=== PATIENT | female | born 1975 | race Caucasian/White ===

== ENCOUNTER 2023-05-04 01:23 | Emergency (ER) | payer MEDICAID, SELFPAY ==
[2023-05-04 01:33] VITALS: BP 169/98; PULSE 88; RESP 20; TEMP 36.5; O2SAT 98; BMI 32.0
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
--- NOTE | 2023-05-04 01:48 | ED.NURSE ---
in to administer dental block
== END 2023-05-04 02:04 | disposition home or self-care (01) ==
LOC: ED 02:01
PROVIDERS: Emergency Provider Family Medicine; PCP Family Medicine
DX: K04.7 Periapical abscess without sinus (principal)
CPT/HCPCS: 64400; 99283; 99284

== ENCOUNTER 2025-02-07 17:05 | Emergency (ER) | payer OTHER, SELFPAY ==
--- OUTSIDE RECORDS SUMMARY | 2025-02-07 17:07 | XMS_ITS | CCD ---
Author Name Interface, [id number] lity Address [address] [place], [place] [id number] [facility] Address [address] [place] [address] Care Team Providers Care Dental Technician Name Role Phone Deepthi Dodge Unavailable Unavailable Cheryle Ashford Unavailable Unavailable Care Plan Reason for Visit Encounters Functional Status Medications Problems Procedures Social History
--- OUTSIDE RECORDS SUMMARY | 2025-02-07 17:08 | XMS_ITS ---
Author Name Interface, [id number] lity Address [address] [place] [address] [address] [address] [facility] Oncology Address [address] [facility] [address] [place] [address] Care Team Providers Care Psychiatric Therapist Name Role Phone Deepthi Dodge Unavailable Unavailable Allergies and Adverse Reactions Medication/Group Name Reaction Severity Date adhesive 05/06/2023 Citalopram Analogues no mappable FDB reaction 05/06/2023 escitalopram oxalate no mappable FDB reaction 05/06/2023 Plan Date Type Value 05/06/2023 APPOINTMENT RECONSULT 30 MIN 05/06/2023 APPOINTMENT LAB 15 MIN 05/06/2023 LABORDER Reticulocyte cou nt panel 05/06/2023 LABORDER CMP 05/06/2023 LABORDER CBC w/ auto diff 05/06/2023 LABORDER LDH panel 05/09/2024 LABORDER CBC w/ auto diff 05/09/2024 LABORDER CMP 05/09/2024 LABORDER LDH panel Reason for Visit LAB 15 MIN Encounters Date Name 05/06/2023 Acute lymphoid leuke abril, disease (disorder) Diagnostic Results Date Type Test Units Lower Limit Upper Limit Result Flag Comments Status Ordered By Specimen Source Lab Address 05/06 LDH panel LDH U/L 120.0 246.0 191 FINAL Deepthi banerjee Oncology - [place], [address] [facility] [address] [facility] [place] [phone] Phone: () - 05/06 CBC w/ auto diff WBC K/uL 3.0 8.9 8.4 FINAL Deepthi banerjee Oncology - [facility], [address] [place] [address] [address] [facility] [id number] [phone] Phone: () - 05/06 CBC w/ auto diff HGB g/dL 11.3 15.2 13.6 FINAL Deepthi banerjee [facility] - [place], [address] [place] [address] [address] [place] [id number] Phone: () - 05/06 CBC w/ auto diff PLT K/uL 113.0 364.0 266 FINAL eDepthi banerjee Oncology - [place], [address] [place] [address] [address] [place] [id number] 0 Phone: () - 05/06 CBC w/ auto diff Dawna # (ANC) K/uL 1.6 6.6 3.9 FINAL Deepthi banerjee [facility] - [place], [address] [place] [address] [address] [place] [id number] Phone: () - 05/06 CBC w/ auto diff Dawna % % 43.0 74.0 46.7 FINAL Deepthi banerjee [facility] - [place], [address] [place] [address] [address] [place] [id number] 0 Phone: () - 05/06 CBC w/ auto diff IG % % 0.0 0.5 0.5 FINAL Deepthi banerjee [facility] - [place], [address] [place] [address] [address] [place] [id number] 0 Phone: () - 05/06 CBC w/ auto diff IG # K/uL 0.0 0.03 0.04 High FINAL Deepthi banerjee [facility] - [place], [address] [place] [address] [address] [place] [id number] Phone: () - 05/06 CBC w/ auto diff LY % % 14.0 41.0 44.8 High FINAL Deepthi banerjee [facility] - [place], [address] [place] [address] [address] [place] [id number] 0 Phone: () - 05/06 CBC w/ auto diff MO % % 6.0 15.0 6.2 FINAL Deepthi banerjee [facility] - [place], [address] [place] [address] [address] [place] [id number] 0 Phone: () - 05/06 CBC w/ auto diff EO % % 0.0 7.0 1.4 FINAL Deepthi banerjee [facility] - [place], [address] [place] [id number] Phone: () - 05/06 CBC w/ auto diff BA % % 0.0 2.0 0.4 FINAL Deepthi banerjee On[facility] - [place] [facility], [address] [place] [address] [address] [place] [id number] 0 Phone: () - 05/06 CBC w/ auto diff LY # K/uL 0.4 3.6 3.8 High FINAL Deepthi banerjee On[facility] - [place] [facility], [address] [place] [address] [address] [place] [id number] 0 Phone: () - 05/06 CBC w/ auto diff MO # K/uL 0.2 1.3 0.5 FINAL Deepthi banerjee On[facility] - [place] [facility], [address] [place] [address] [address] [place] [id number] 0 Phone: () - 05/06 CBC w/ auto diff EO # K/uL 0.0 0.6 0.1 FINAL Deepthi banerjee On[facility] - [place] [facility], [address] [place] [address] [address] [place] [id number] 0 Phone: () - 05/06 CBC w/ auto diff BA # K/uL 0.0 0.2 0.0 FINAL Deepthi banerjee On[facility] - [place] [facility], [address] [place] [address] [address] [place] [id number] 0 Phone: () - 05/06 CBC w/ auto diff NRBC % #/100W BC 0.0 0.2 0.0 FINAL Deepthi banerjee On[facility] - [place] [facility], [address] [place] [address] [address] [place] [id number] 0 Phone: () - 05/06 CBC w/ auto diff RBC M/uL 3.9 5.1 4.57 FINAL Deepthi banerjee Oncology - [place] [facility], [address] [place] [address] [address] [place] [id number] 0 Phone: () - 05/06 CBC w/ auto diff HCT % 35.0 48.0 40.7 FINAL Deepthi banerjee Oncology - [place] [facility], [address] [place] [address] [address] [facility] [place] [id number] 0 Phone: () - 05/06 CBC w/ auto diff MCV fL 80.0 104.0 89.1 FINAL Deepthi banerjee [facility] - [place], [address] [place] [address] [address] [place] [id number] 0 Phone: () - 05/06 CBC w/ auto diff MCH pg 26.0 35.0 29.8 FINAL Deepthi banerjee Oncology - [place] [facility], [address] [place] [address] [address] [facility] [place] [id number] 0 Phone: () - 05/06 CBC w/ auto diff MCHC g/dL 30.0 35.0 33.4 FINAL Deepthi banerjee On[facility] - [place] [facility], [address] [place] [address] [address] [facility] [place] [id number] 0 Phone: () - 05/06 CBC w/ auto diff MPV fL 9.5 13.4 9.3 Low FINAL Deepthi banerjee Oncology - [place] [facility], [address] [place] [address] [address] [facility] [place] [id number] 0 Phone: () - 05/06 CBC w/ auto diff RDW % 11.4 16.1 13.60 FINAL Deepthi banerjee On[facility] - [place] [facility], [address] [place] [address] [address] [facility] [place] [id number] 0 Phone: () - 05/06 Retic ulocy te count panel Retic ulocy te, absol bc M/uL 0.02 0.08 0.07 FINAL Deepthi banerjee On[facility] - [place] [facility], [address] [place] [address] 200 [place] [id number] 0 Phone: () - 05/06 Retic ulocy te count panel Retic ulocy te count % 0.4 1.6 1.60 FINAL Deepthi banerjee On[facility] - [place] [facility], [address] [place] [address] 200 [place] [id number] 0 Phone: () - 05/06 Retic ulocy te count panel Immat ure retic ulocy te fract ion, % % 0.0 16.5 9.70 FINAL Deepthi banerjee [facility], [address] [place] [id number] 0 Phone: () - 05/06 Retic ulocy te count panel Retic ulocy te cellu lar hemog lobin pg 28.0 37.0 33.0 FINAL Deepthi Clemens lavonne [facility], [address] [place] [id number] 0 Phone: () - 05/06 CMP Album in g/dL 3.2 5.2 4.7 FINAL Deep[place] [address] [facility] [address] [place] [id number] 0 Phone: () - 05/06 CMP Alkal ine phosp hatas e U/L 46.0 116.0 73 FINAL Deepthi Dodge [place] [address] [id number] 0 Phone: () - 05/06 CMP ALT/S GPT U/L 7.0 40.0 19 FINAL Deepthi [place] [address] [phone] 0 Phone: () - 05/06 CMP AST/S GOT U/L 13.0 40.0 21 FINAL Deepthi [place] [address] [phone] Phone: () - 05/06 CMP BUN mg/dL 9.0 23.0 16.0 FINAL Deepthi [place] [address] [id number] 0 Phone: () - 05/06 CMP Calci um mg/dL 8.7 10.4 9.8 FINAL Deepthi [place] [address] [id number] 0 Phone: () - 05/06 CMP Chlor ray mmol/L 96.0 114.0 107 FINAL Deepthi Dodge [place] [address] [phone] 0 Phone: () - 05/06 CMP CO2 mmol/L 20.0 31.0 28 The expected total allowable error for CO2 is 5.6%. We have seen up to 10% differenc e in values if reported at the end of the 96 hour stability window. Please consider the clinical significa nce of a 2.0-2.5 mmol/L lower reported CO2 value if reported at the end of the 96 hour stability window. FINAL Deepthi banerjee [place] [address] [phone] 0 Phone: () - 05/06 CMP Creat inine mg/dL 0.5 1.2 0.80 FINAL Deepthi [place] [address] [phone] 0 Phone: () - 05/06 CMP GFR estim ate ml/min /1.73m ^2 90.1 GFR is calculate d using the CKD-EPI equation. FINAL Deepthi [place] [address] [phone] 0 Phone: () - 05/06 CMP Gluco se mg/dL 73.0 126.0 128 High FINAL Deepthi [place] [address] [phone] 0 Phone: () - 05/06 CMP Potas sium mmol/L 3.5 5.1 3.9 FINAL Deepthi [place] [address] [phone] 0 Phone: () - 05/06 CMP Sodiu m mmol/L 136.0 145.0 142 FINAL Deepthi Eli [place] [address] [phone] 0 Phone: () - 05/06 CMP Bilir ubin, total mg/dL 0.3 1.2 0.2 Low FINAL Deepthi [place] [address] [phone] 0 Phone: () - 05/06 CMP Total prote in g/dL 5.7 8.2 7.1 FINAL Deepthi banerjee Oncology - [place], [address] [facility] [address] [facility] [place] [phone] 0 Phone: () - Medications Date Name Route Dose Frequency Instructions Start Date End Date Status Albuterol HFA Inhaler 90 mcg/actuation PRN active Lisinopril Oral orally 10.0 mg daily active Furosemide Oral daily a ctive 12/21 Hydrocortisone IV intravenously 100.0 mg Re-initiate treatment only upon physician approval. 2019 active 12/21 Methylprednisol one IV intravenously 125.0 mg Re-initiate treatment only upon physician approval. 2019 active 12/21 dexamethasone sodium phosphate intravenously 10.0 mg once 2019 active 12/21 Diphenhydramine IV intravenously 50.0 mg Re-initiate treatment only upon physician approval. 2019 active 12/21 Granisetron IV intravenously 1000. 0 mcg once 2019 active 12/21 2 ML vincristine sulfate 1 MG/ML Injection intravenously 2.0 mg once Interim Maintenance Days 1 of a 28 day cycleVincristine is a vesicant.Max Dose is 2 mg. 2019 active 12/21 dexamethasone sodium phosphate intravenously 10.0 mg once 2019 active 12/21 1 ML epinephrine 1 MG/ML Injection intramuscularly 0.3 mg once Re-initiate treatment only upon physician approval. 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) Active 04/05/2019 Acute thrombosis of subclavian vein (disorder) A ctive Anxiety (finding) Active Cough (finding) Active Upper respiratory infection (disorder) Active Acute lymphoid leukemia, disease (disorder) Acti ve Vital Signs Date Type Value 05/06/2023 Body Temperature 98.50 05/06/2023 Heart Beat 87.00 05/06/2023 Respiratory Rate 16.00 05/06/2023 Oxygen Saturation 98.00 05/06/2023 BSA 1.79 05/06/2023 Pain Scale 6.00 05/06/2023 Weight 172.30 05/06/2023 Height 62.00 05/06/2023 BMI 31.51 05/06/2023 Intravascular Systolic 148 05/06/2023 Intravascular Diastolic 88 Notes Section * Med Onc Follow-up Note Patient Name: XIN TRAN? Date Of : 1975? Today's Provider:?Deepthi Dodge MD Date of Service:?05/06/2023? Attending Physician:?Cheryle Ashford (Medical Oncology), Deepthi Dodge (Medical Oncology) Referring Provider:??Wilfredo Ellis MD (Family Medicine) HEMATOLOGY/ MEDICAL ONCOLOGY FOLLOW UP VISIT Reason for Visit Follow up, history of T-ALL?? Assessment * History of stage IIIB T-cell acute lymphoblastic lymphoma??at age 46 treated with an aspariginase-based induction regimen followed by consolidation therapy as detailed below. She was not able to complete 2 years of maintenance as recommended due to lack of follow up and insurance issues.?? * History of catheter-related DVT. Not on chronic anticoagulation.?? * Lower extremity edema. Previously on furosemide but has not been taking this for a couple of years.?? Plan * Follow up with primary care as scheduled. * Follow up with cardiology next week as scheduled. * From an oncology perspective, her risk of relapse now 4 years out is??not extremely high even though she did not complete maintenance therapy. Continue surveillance with yearly visit and CBC. However, I asked Xin to let us know if she develops fever, night sweats, weight loss, etc. as acute leukemia relapse is not likely to be caught on once yearly labs. Total time spent including face to face time, chart review, documentation and coordination of care - 30 minutes.?? Advanced Care Planning Pain Scale on Today's Visit 6 Pain Plan on Today's Visit Date of Service: 05/06/2023 Pain Scale (0-10): 6 Pain Treatment Plan: Non-opioid analgesics or techniques Comment: Smoking Status Smoking Tobacco : Current every day smoker; Smokeless Tobacco : Never used smokeless tobacco; Vaping : Never vaped Depression Screening Tool Status Was not screened Reason: Patient Refused; Screening Date: 05/06/2023 History of Present Illness DIAGNOSIS: * T-cell acute lymphoblastic lymphoma, diagnosed definitively at ultrasound- guided biopsy of a left neck mass 04/05/2019. Xin is a previously healthy 44 year old woman who was admitted 04/03/2019 from [place] to [facility] with dyspnea and a left neck mass. CT 04/04/2019 showed a giant anterior mediastinal mass, mild left hilar, moderate supraclavicular, and mild inferior posterior trianglecervical adenopathy. There was??also mild left superior periaortic retroperitoneal lymphadenopathy.Large left pleural effusion with prominent atelectasis in the left lower lobe.?? U/S guided bx of the left neck mass showed T-cell acute lymphoblastic lymphoma (ALL).??Pleural fluid was also positivefor ALL. Bone marrow biopsy was negative. Subsequent CT of the abdomen showed??abnormal soft tissuewithin the upper left retroperitoneum. This is contiguous with soft tissue thickening along the crux of the left hemidiaphragm and left pleural soft tissue thickening.?? * Status post induction chemotherapy with complete response noted on imaging. * She is currently receiving consolidation per the above protocol, most recently Block 7 as an in-patient,?? 09/26-05/2019. * She is still too cytopenic for admission to the hospital Consolidation Block 8. I will therefore give her the next two weeks off, and then admit to the hospital 10/24 or for that, which will be her second to last consolidation block.?? * Chronic pain that predated her diagnosis but was probably related to it in some capacity. We were giving her opiates for this. She has been off of narcotics now for a few days and is okay with this. She would like to detox and I am very supportive of this. * History of smoking with COPD seen on recent CT scan. Unfortunately she continues to smoke. * Right upper extremity DVT 06/07/2019, due to her powerport. S/P removal and currently on rivaroxaban, with which she has been intermittently compliant.?? * Left upper extremity occlusive thrombosis in the left basilic and axillary veins, and nonocclusive thrombus in the left subclavian. This was coincident with her not taking her rivaroxaban because "I just got tired of taking it. 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 This was used for PICC during her recent hospitalization. * Recent development of compression fractures of the thoracic and lumbar spine, undoubtedly due to prednisone as part of her regimen. THERAPY TO DATE: * We are using the GRAAL 2003 regimen, inspired by similar pediatric protocols that have resulted in 60-70% chance of cure in adults 45 and younger.?? * ??She was 6878admitted from 04/21/2019-05/09/2019 for??induction chemotherapy??using the GRAAL 2003 regimen, She received Vincristine 2 mg/d IV D1, 8, 15 and 22; Daunorubicin 50 mg/m2/d IV D1, 2, 3 then 30 mg/m2 day 15 and 16; Pegaspargase 2000 mg/m2 IV day 1; Prednisone 60 mg/m2/d oral day 1-14; ??cyclophosphamide 750 mg/m2 D1.??Because she was a good early responder, so she??received??cytoxan 750mg/m2 IV day 15.??CT scan 05/08/2019 showed significant interval improvement with near complete resolution her anterior mediastinal mass,??and complete resolution of her pleural effusion and upper abdominal adenopathy. She was discharged 05/09. * Admitted 05/15/2019- 05/19/2019??for first block (Block #1)consolidation, with cytarabine and dexamethasone given bid days 1 and 2, and asparaginase given day 3. She was discharged 05/19/2019 * Admitted 05/24/19 - 02/08??with??right neck pain.??CT of the neck which showed decreased attenuation within the internal jugular vein superior to where the catheter enters the??internal jugular vein likely indicating venous thrombosis.??She was??started on??heparin.??But her??CBC??revealed??platelet count of 21,000 hemoglobin 7.3 and a white blood cell count of 0.8. Heparin was d/c'ed, and the port-a-cath was removed. She was not discharged on anticoagulation because of her thrombocytopenia. * Admitted 05/30-06/04 for Block 2 of consolidation??She received??3000 mg/m?? of IV methotrexate,??2 mgof IV vincristine, followed by??PEG asparaginase and daily mercaptopurine for about a week. She tolerated everything just fine and was discharged on G-CSF. * Admitted 06/13- for Block 3 of consolidation. * Admitted 06/29/19-07/02/19 for Block 4 of Consolidation??Received??Cytarabine 2g q 12 hours D1,2,??Dexamethasone 10 mg po q 12 hours, D1,2, Aspariginase 21386 u IM day 3 + Neulasta. * Admitted 07/13/19-07/19/19 for Block 5 of Consolidation:??07/13/19 - 07/14/19: Methotrexate 5300 mg IV with Leucovorin rescue, 07/13/19: Vincristine 2 mg IV, 07/14/19: Pegaspargase 3442.5 Units 07/13/19 - 07/19/19: Mercaptopurine 100 mg daily 07/19/19: On-body Neulasta * Received Block 6, Cytoxan methotrexate and etoposide, 08/02 through seven 08/04 as an outpatient * Admitted 08/26-08/27/19 for late intensification:??She received daunorubicin days 1-3 and vincristineday 1 inpatient.?? Received prednisone 100 mg daily for 14 days.?? PEG asparaginase on day 14 and cyclophosphamide and vincristine on day 18.?? She received days 14-18 as an outpatient, 09/09-. * Admitted 09/26-09/29/19 for Consolidation?? Block 7:??She received Cytarabine 2 g/m?? every 12 hours days 1 and 2, Dexamethasone 10 mg every 12 hours days 1 and 2, and Pegasparaginase 2000 units/m2 day3 * Admitted 10/25-10/28/19 for Consolidation?? Block 8:??She received??High dose methotrexate on day 1,Vincristine 2 mg IV day 1, PEG- Asparaginase 2057 units on day 3. Methotrexate level was 0.12 on 10/28/2019. * Admitted 11/17-11/19/19 for Consolidation?? Block 9:??She received??with CTX, MTX, MATERNAL CHILD NURSE-16 + growth factor support with neulasta * Xin is back today to begin maintenance therapy with weekly methotrexate, daily 6-MP, dexamethasone days 1 through 5, and vincristine day 1 out of a 28- day cycle. The plan is to do this for a total of 2 years. * Lost to follow up, did not complete maintenance, last visit with treatment was October 2019.?? Interval History Xin is here today for follow up. She last saw Aliza almost 2 years ago.?? No drenching night sweats, weight loss or unexplained fever. No excessive bleeding or petechiae. Norash.?? She has not been taking Lasix for a couple of years, but was given a refill recently at primary care.?? She was told to see cardiology due to some ECG findings in the past but hasn't done this yet. This appointment is scheduled for next week.?? Review of Systems Remaining 14 point comprehensive review of systems within normal limits. NCCN Distress Thermometer and Problem List were collected and documented in the patient chart.?? Remarkable symptoms and concerns were discussed with the patient.?? Any additional follow-up is indicated in the plan. Past Medical and Surgical History 1. Anxiety, with panic attacks 2. Berumen's esophagus 3. Heartburn 4. Smoker 5. Tubal without intrauterine 6. 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 Current Medications Medication List Name Date Dexamethasone IV 12/21/2019 Lasix (Furosemide Oral) 05/06/2023 Lisinopril Oral 05/06/2023 Albuterol HFA Inhaler 90 mcg/actuation 0 05/06/2023 Allergies Citalopram Analogues, adhesive and escitalopram oxalate Family History There is no family history of any hematologic or oncologic illness. Social History Xin is to Tristan and they have 3 children. She smokes cigarettes.?? Vital Signs Blood pressure: 148/88, Sitting, Regular, Pulse: 87, Temperature: 98.5 F, Respirations: 16, O2 sat:98%, At Rest, Room Air, Pain Scale: 6, Height: 62 in, Weight: 172.3 lb, BSA: 1.79, BMI: 31.51 kg/m2 Flu vaccine - Adult (09/19/2019), Patient declined/rejected Performance Status ECOG or Karnofsky ECO Symptoms, but ambulatory. Restricted in physically strenuous activity, but ambulatory and able to carry out work of a light or sedentary nature (e.g., light housework, office work). (Date: 06/19/2021) Karnofsky:?80% Normal activity with effort; some signs or symptoms of disease. (Date: 09/19/2019) Physical Exam General: Well appearing, not in distress HENT: No scleral icterus.?? Cardiovascular: Normal rate, regular rhythm. Respiratory: Clear to auscultation bilaterally Abdomen: Nontender, nondistended Skin: No rash or petechiae on exposed skin Neuro: No focal deficits.?? Genetics/Molecular/Biomarkers * Drug prophylaxis (procedure) ( First record:06/03/2019 Last record:06/03/2019; ) * Precursor T cell lymphoblastic leukemia/lymphoblastic lymphoma (disorder) ( Date of Dx:04/05/2019 Disease Status: Initial presentation; CD20 Result: Negative; First record:05/16/2019 Last record:09/12/2019 Other Migrated ICD10: C91.00 ) Additional Labs, Imaging, and Other Studies Lab Results CBC LabResults 05/06/2023 05/01/2023 01/19/2023 06/19/2021 12/28/2019 CBC WBC x 10^3/uL 8.4 8.7 4.9 5.7 RBC x 10^6/uL 4.57 4.67 4.01 2.97 (L) NRBC % /100 wbc 0.0 0.0 0.0 0.0 HGB g/dL 13.6 14.2 12.5 10.4 (L) HCT % 40.7 41.7 36.8 32.3 (L) MCV fL 89.1 89.3 91.8 108.8 (H) MCH pg 29.8 30.4 31.2 35.0 MCHC g/dL 33.4 34.1 34.0 32.2 RDW % 13.60 13.10 13.90 15.20 PLT x 10^3/uL 266 282 257 312 MPV fL 9.3 (L) 8.8 (L) 9.1 (L) 9.9 Dawna % 46.7 56.8 46.0 72.5 LY % 44.8 (H) 33.4 38.7 14.4 MO % 6.2 7.0 10.0 9.6 EO % 1.4 1.8 4.3 2.6 BA % 0.4 0.5 0.6 0.5 IG % 0.5 0.5 0.4 0.4 Dawna # (ANC) x 10^3/uL 3.9 4.9 2.2 4.1 LY # x 10^3/uL 3.8 (H) 2.9 1.9 0.8 MO # x 10^3/uL 0.5 0.6 0.5 0.6 EO # x 10^3/uL 0.1 0.2 0.2 0.2 BA # x 10^3/uL 0.0 0.0 0.0 0.0 IG # x 10^3/uL 0.04 (H) 0.04 (H) 0.02 0.02 CBC Smear review comments Large and-or giant platelets present Atypical (Reactive and/or Variant) Lymphs present (A) Auto CBC comments Slide review to follow Chemistries LabResults 05/06/2023 05/01/2023 01/19/2023 06/19/2021 0 12/28/2019 Chemistries Glucose mg/dL 128 (H) 95 150 (H) 117 BUN mg/dL 16.0 11 19 11 Creatinine mg/dL 0.80 0.68 0.74 0.53 Creatinine, iSTAT mg/dL 0.5 (L) Sodium mmol/L 142 140 144 145 Potassium mmol/L 3.9 4.1 3.8 3.4 (L) Chloride mmol/L 107 107 107 109 CO2 mmol/L 28 26 27 29 Calcium mg/dL 9.8 9.4 9.4 9.7 Albumin g/dL 4.7 4.6 4.4 3.9 Total protein g/dL 7.1 6.9 6.1 5.6 (L) Bilirubin, total mg/dL 0.2 (L) 0.2 (L) 0.2 (L) 0.2 (L) Alkaline phosphatase U/L 73 91 76 59 AST/SGOT U/L 21 34 16 19 ALT/SGPT U/L 19 27 12 13 LDH U/L 191 246 GFR estimate mL/min/1.73m2 90.1 103.9 97.0 114.0; 116. 2 ? LabResults 05/06/2023 05/01/2023 01/19/2023 06/19/2021 0 12/28/2019 Anemia Labs Reticulocyte count % 1.60 1.75 (H) 2.07 (H) Reticulocyte, absolute x 10^6/mL 0.07 0.08 0.08 Immature reticulocyte fraction, % 9.70 10.80 10.10 Reticulocyte cellular hemoglobin pg 33.0 34.6 36.5 Surveys/Consents/Other Discussions Deepthi Dodge MD CC: FAX Wilfredo Ellis MD (Referring) Electronically signed by Deepthi Dodge MD 05/09/2023 23:22 CDT
--- OUTSIDE RECORDS SUMMARY | 2025-02-07 17:08 | XMS_ITS ---
Author Name Interface, [id number] lity Address [address] [place] [address] [address] [place] [address] Organization [facility] Address [address] [facility] [address] [place] [address] Care Team Providers Care Jacquard Loom Heddles Tier Name Role Phone Bernabe Jang Milton Unavailable Allergies and Adverse Reactions Medication/Group Name Reaction Severity Date adhesive 05/06/2023 Citalopram Analogues no mappable FDB reaction 05/06/2023 escitalopram oxalate no mappable FDB reaction 05/06/2023 Plan Date Type Value 05/06/2023 APPOINTMENT RECONSULT 30 MIN 05/06/2023 APPOINTMENT LAB 15 MIN 05/04/2023 APPOINTMENT LAB 15 MIN 05/04/2023 APPOINTMENT RECONSULT 30 MIN 06/19/2021 APPOINTMENT RC - 16 ARM DRAW - 16 ARM DRAW 06/19/2021 APPOINTMENT RC - 16 ARM DRAW - 16 ARM DRAW 08/06/2020 APPOINTMENT RC - 16 ARM DRAW - 16 ARM DRAW 08/06/2020 APPOINTMENT RC - 16 ARM DRAW - 16 ARM DRAW 05/02/2020 APPOINTMENT PET - 16 PET/ CT - CHECKIN 645AM 05/01/2020 APPOINTMENT RC - 16 RECHECK - 16 RECHECK 04/24/2020 APPOINTMENT RC - 16 RECHECK - 16 RECHECK 12/28/2019 APPOINTMENT RCT1 - 16 ARM RC VINCRISTINE - NEW START-CHEMO AFTER RC VISIT 12/28/2019 APPOINTMENT RCT1 - 16 ARM RC VINCRISTINE - NEW START-CHEMO AFTER RC VISIT 12/28/2019 APPOINTMENT RCT1 - 16 ARM RC VINCRISTINE - NEW START-CHEMO AFTER RC VISIT 12/26/2019 APPOINTMENT PET - 16 SKULL B ASE TO MID THIGH - ACUTE LYMPHOID LEUKEMIA 12/14/2019 APPOINTMENT HFU - 16 ARM/HFU - 16 ARM/HFU 12/14/2019 APPOINTMENT HFU - 16 ARM/HFU - 16 ARM/HFU 12/14/2019 LABORDER CBC w/ auto diff 12/14/2019 LABORDER PET/CT scan, sku ll base/mid thigh 12/28/2019 LABORDER CBC w/ auto diff 12/28/2019 LABORDER CMP 12/28/2019 LABORDER iSTAT creatinine panel 01/11/2020 LABORDER CBC w/ auto diff 02/08/2020 LABORDER CBC w/ auto diff 03/07/2020 LABORDER CBC w/ auto diff 05/01/2020 LABORDER CMP 05/01/2020 LABORDER CBC w/ auto diff 05/01/2020 LABORDER PET/CT scan, sku ll base/mid thigh 05/02/2020 LABORDER Reticulocyte cou nt panel 05/02/2020 LABORDER Path peripheral blood slide review panel 08/06/2020 LABORDER CBC w/ auto diff 06/19/2021 LABORDER CMP 06/19/2021 LABORDER CBC w/ auto diff 06/19/2021 LABORDER LDH panel 06/19/2021 LABORDER Path peripheral blood slide review panel 06/19/2021 LABORDER Reticulocyte cou nt panel 09/20/2021 LABORDER CBC w/ auto diff 05/06/2023 LABORDER Reticulocyte cou nt panel 05/06/2023 LABORDER CMP 05/06/2023 LABORDER CBC w/ auto diff 05/06/2023 LABORDER LDH panel 05/09/2024 LABORDER CBC w/ auto diff 05/09/2024 LABORDER CMP 05/09/2024 LABORDER LDH panel Reason for Visit LAB 15 MIN Encounters Date Name 12/14/2019 Acute lymphoid leuke abril, disease (disorder) 12/14/2019 Acute lymphoid leuke abril, disease (disorder) 12/14/2019 Acute thrombosis of subclavian vein (disorder) Diagnostic Results Date Type Test Units Lower Limit Upper Limit Result Flag Comments Status Ordered By Specimen Source Lab Address 12/14 Smear revie w panel CBC Smear revie w comme nts Large and-or giant platele ts present Consist ent with reporte d results Abnor mal FINAL [facility], [address] [place] [id number] 0 Phone: () - 12/14 CBC w/ auto diff WBC K/uL 3.0 8.9 3.9 FINAL [facility]ady [facility], [address] 200 [facility] [place] [id number] 0 Phone: () - 12/14 CBC w/ auto diff HGB g/dL 11.3 15.2 9.3 Low FINAL [facility] - [place], [address] [place] [id number] 0 Phone: () - 12/14 CBC w/ auto diff PLT K/uL 113.0 364.0 372 High FINAL Mady baner[facility] - [place], [address] [place] [address] 200 [facility] [place] [phone] 0 Phone: () - 12/14 CBC w/ auto diff Dawna # (ANC) K/uL 1.6 6.6 2.1 FINAL [facility]er[facility] - [place], [address] [place] [address] 200 [facility] [place] [phone] 0 Phone: () - 12/14 CBC w/ auto diff Dawna % % 43.0 74.0 54.9 FINAL [facility]er[facility] - [place], [address] [place] [address] 200 [facility] [place] [phone] 0 Phone: () - 12/14 CBC w/ auto diff IG % % 0.0 0.5 0.5 FINAL [facility]ady banerjee [facility] - [place], [address] [place] [address] 200 [facility] [place] [phone] 0 Phone: () - 12/14 CBC w/ auto diff IG # K/uL 0.0 0.03 0.02 FINAL Mady banereje [facility] - [place], [address] [place] [address] 200 [facility] [place] [id number] 0 Phone: () - 12/14 CBC w/ auto diff LY % % 14.0 41.0 26.2 FINAL Mady banerjee [facility] - [place], [address] [place] [address] 200 [place] [id number] 0 Phone: () - 12/14 CBC w/ auto diff MO % % 6.0 15.0 16.6 High FINAL Mady banerjee [facility] - [place], [address] [place] [address] 200 [facility] [place] [id number] 0 Phone: () - 12/14 CBC w/ auto diff EO % % 0.0 7.0 1.3 FINAL Mady banerjee [facility] - [place], [address] [place] [address] [address] [place] [id number] 0 Phone: () - 12/14 CBC w/ auto diff BA % % 0.0 2.0 0.5 FINAL Mady banerjee [facility] - [place], [address] [place] [address] [address] [place] [id number] 0 Phone: () - 12/14 CBC w/ auto diff LY # K/uL 0.4 3.6 1.0 FINAL [facility]ady baner[facility] - [place], [address] [place] [address] [address] [place] [id number] 0 Phone: () - 12/14 CBC w/ auto diff MO # K/uL 0.2 1.3 0.6 FINAL [facility]ady baner[facility] - [place], [address] [place] [address] [address] [place] [id number] 0 Phone: () - 12/14 CBC w/ auto diff EO # K/uL 0.0 0.6 0.1 FINAL Mady baner[facility] - [place], [address] [place] [address] [address] [place] [id number] 0 Phone: () - 12/14 CBC w/ auto diff BA # K/uL 0.0 0.2 0.0 FINAL [facility]er[facility] - [place], [address] [place] [address] [address] [place] [id number] 0 Phone: () - 12/14 CBC w/ auto diff NRBC % #/100W BC 0.0 0.2 0.0 FINAL [facility]er[facility] - [place], [address] [place] [address] [address] [place] [id number] 0 Phone: () - 12/14 CBC w/ auto diff HCT % 35.0 48.0 29.6 Low FINAL Mady [facility]er[facility] - [place], [address] [place] [address] [address] [place] [id number] 0 Phone: () - 12/14 CBC w/ auto diff MCV fL 80.0 104.0 113.8 High FINAL Mady banerjee [facility] - [place] [facility], [address] [place] [address] 200 [place] [id number] 0 Phone: () - 12/14 CBC w/ auto diff MCH pg 26.0 35.0 35.8 High FINAL Mady banerjee [facility] - [place] [facility], [address] 200 [place] [id number] 0 Phone: () - 12/14 CBC w/ auto diff MCHC g/dL 30.0 35.0 31.4 FINAL Mady banerjee [facility] - [place], [address] [place] [address] 200 [place] [id number] 0 Phone: () - 12/14 CBC w/ auto diff MPV fL 9.5 13.4 9.5 FINAL Mady banerjee [facility] - [place] [facility], [address] [place] [address] 200 [place] [id number] 0 Phone: () - 12/14 CBC w/ auto diff RDW % 11.4 16.1 19.70 High FINAL Mady banerjee [facility] - [place] [facility], [address] [place] [address] 200 [place] [id number] 0 Phone: () - 12/14 CBC w/ auto diff Auto CBC comme nts Slide review to follow FINAL Mady banerjee [facility] - [place] [facility], [address] [place] [address] 200 [place] [id number] 0 Phone: () - 12/14 CBC w/ auto diff RBC M/uL 3.9 5.1 2.60 Low FINAL Mady banerjee [facility] - [place] [facility], [address] [place] [address] 200 [place] [id number] 0 Phone: () - 12/28 CMP Album in g/dL 3.2 5.2 3.9 FINAL [facility] [address] [place] [id number] 0 Phone: () - 12/28 CMP Alkal ine phosp hatas e U/L 46.0 116.0 59 FINAL [facility] [address] [place] [phone] 0 Phone: () - 12/28 CMP ALT/S GPT U/L 7.0 40.0 13 FINAL Idalia Eli [address] [phone] 0 Phone: () - 12/28 CMP AST/S GOT U/L 13.0 40.0 19 FINAL Idalia banerjee [address] [id number] 0 Phone: () - 12/28 CMP BUN mg/dL 9.0 23.0 11 FINAL Idalia Clemens[address] [id number] 0 Phone: () - 12/28 CMP Calci um mg/dL 8.7 10.4 9.7 FINAL Idalia Clemens[address] [phone] 0 Phone: () - 12/28 CMP Chlor ray mmol/L 96.0 114.0 109 FINAL Idalia Clemens[address] [id number] 0 Phone: () - 12/28 CMP CO2 mmol/L 20.0 31.0 29 FINAL Idalia Clemens[address] [id number] 0 Phone: () - 12/28 CMP Creat inine mg/dL 0.5 1.2 0.53 FINAL Idalia Clemens[address] [phone] 0 Phone: () - 12/28 CMP GFR estim ate ml/min /1.73m ^2 114.0 GFR is calculate d using the CKD-EPI equation. FINAL Idalia Clemens[address] [phone] 0 Phone: () - 12/28 CMP Gluco se mg/dL 73.0 126.0 117 FINAL Idalia Clemens[address] [id number] 0 Phone: () - 12/28 CMP Potas sium mmol/L 3.5 5.1 3.4 Low FINAL Idalia banerjee [address] [id number] 0 Phone: () - 12/28 CMP Sodiu m mmol/L 136.0 145.0 145 FINAL Idalia banerjee [facility], [address] [place] [address] 100 [facility] [phone] 0 Phone: () - 12/28 CMP Bilir ubin, total mg/dL 0.3 1.2 0.2 Low FINAL Idalia banerjee [address] 100 [facility] [id number] 0 Phone: () - 12/28 CMP Total prote in g/dL 5.7 8.2 5.6 Low FINAL Idalia banerjee [address] [phone] 0 Phone: () - 12/28 CBC w/ auto diff WBC K/uL 3.0 8.9 5.7 FINAL Idalia banerjee [facility] - [facility], [address] [place] [address] 200 [facility] [place] [id number] 0 Phone: () - 12/28 CBC w/ auto diff HGB g/dL 11.3 15.2 10.4 Low FINAL Idalia banerjee [facility] - [facility], [address] [place] [address] 200 [facility] [place] [id number] 0 Phone: () - 12/28 CBC w/ auto diff PLT K/uL 113.0 364.0 312 FINAL Idalia banerjee [facility] - [facility], [address] [place] [address] 200 [facility] [place] [id number] 0 Phone: () - 12/28 CBC w/ auto diff Dawna # (ANC) K/uL 1.6 6.6 4.1 FINAL [facility], [address] [place] [address] 200 [facility] [place] [id number] 0 Phone: () - 12/28 CBC w/ auto diff Dawna % % 43.0 74.0 72.5 FINAL Idalia banerjee [facility] - [facility], [address] [place] [address] 200 [place] [id number] 0 Phone: () - 12/28 CBC w/ auto diff IG % % 0.0 0.5 0.4 FINAL Idalia banerjee [facility] - [place], [address] 200 [facility] [id number] 0 Phone: () - 12/28 CBC w/ auto diff IG # K/uL 0.0 0.03 0.02 FINAL Idalia banerjee [facility] - [place], [address] 200 [facility] [id number] 0 Phone: () - 12/28 CBC w/ auto diff LY % % 14.0 41.0 14.4 FINAL Idalia banerjee [facility] - [place], [address] [place] [address] 200 [facility] [id number] 0 Phone: () - 12/28 CBC w/ auto diff MO % % 6.0 15.0 9.6 FINAL Idalia banerjee [facility] - [place], [address] [place] [address] 200 [facility] [id number] 0 Phone: () - 12/28 CBC w/ auto diff EO % % 0.0 7.0 2.6 FINAL Idalia banerjee [facility] - [place], [address] [place] [address] 200 [facility] [id number] 0 Phone: () - 12/28 CBC w/ auto diff BA % % 0.0 2.0 0.5 FINAL Idalia banerjee [facility] - [place], [address] [place] [address] 200 [facility] [id number] 0 Phone: () - 12/28 CBC w/ auto diff LY # K/uL 0.4 3.6 0.8 FINAL Idalia banerjee [facility] - [place], [address] [place] [address] 200 [facility] [id number] 0 Phone: () - 12/28 CBC w/ auto diff MO # K/uL 0.2 1.3 0.6 FINAL Idalia banerjee [facility] - [place], [address] [place] [address] 200 [facility] [id number] 0 Phone: () - 12/28 CBC w/ auto diff EO # K/uL 0.0 0.6 0.2 FINAL Idalia banerjee [facility] - [place], [address] [place] [address] [address] [place] [id number] 0 Phone: () - 12/28 CBC w/ auto diff BA # K/uL 0.0 0.2 0.0 FINAL Idalia banerjee [facility] - [place], [address] [place] [address] [address] [place] [id number] 0 Phone: () - 12/28 CBC w/ auto diff NRBC % #/100W BC 0.0 0.2 0.0 FINAL Idalia banerjee [facility] - [place], [address] [place] [address] [address] [place] [phone] 0 Phone: () - 12/28 CBC w/ auto diff RBC M/uL 3.9 5.1 2.97 Low FINAL Idalia banerjee [facility] - [place], [address] [place] [address] [address] [place] [id number] 0 Phone: () - 12/28 CBC w/ auto diff HCT % 35.0 48.0 32.3 Low FINAL Idalia banerjee [facility] - [place], [address] [place] [address] [address] [place] [id number] 0 Phone: () - 12/28 CBC w/ auto diff MCV fL 80.0 104.0 108.8 High FINAL Idalia banerjee [facility] - [place], [address] [place] [address] [address] [place] [id number] 0 Phone: () - 12/28 CBC w/ auto diff MCH pg 26.0 35.0 35.0 FINAL Idalia banerjee [facility] - [place], [address] [place] [address] [address] [place] [id number] 0 Phone: () - 12/28 CBC w/ auto diff MCHC g/dL 30.0 35.0 32.2 FINAL Idalia banerjee [facility] - [place], [address] [place] [address] [address] [place] [id number] 0 Phone: () - 12/28 CBC w/ auto diff MPV fL 9.5 13.4 9.9 FINAL Idalia banerjee [facility] - [place], [address] [place] [address] [address] [place] [id number] 0 Phone: () - 12/28 CBC w/ auto diff RDW % 11.4 16.1 15.20 FINAL Idalia banerjee [facility] - [place], [address] [place] [address] [address] [place] [id number] 0 Phone: () - 12/28 iSTAT creat inine panel Creat inine , iSTAT mg/dl 0.6 1.3 0.5 Low FINAL Idalia banerjee [facility] - [place], [address] [place] [address] [address] [place] [id number] 0 Phone: () - 12/28 iSTAT creat inine panel GFR estim ate ml/min /1.73m ^2 116.2 GFR is calculate d using the CKD-EPI equation. FINAL Idalia banerjee [facility] - [place], [address] [place] [address] [address] [place] [id number] 0 Phone: () - 05/01 CBC w/ auto diff PLT K/uL 113.0 364.0 257 FINAL Asim banerjee [facility] - [place], [address] [place] [address] [address] [place] [id number] 0 Phone: () - 05/01 CBC w/ auto diff Dawna # (ANC) K/uL 1.6 6.6 2.2 FINAL Asim banerjee [facility] - [place], [address] [place] [address] [address] [place] [id number] 0 Phone: () - 05/01 CBC w/ auto diff Dawna % % 43.0 74.0 46.0 FINAL Asim banerjee [facility] - [place], [address] [place] [address] [address] [place] [id number] 0 Phone: () - 05/01 CBC w/ auto diff IG % % 0.0 0.5 0.4 FINAL Asim banerjee [facility] - [place], [address] [place] [address] [address] [place] [id number] 0 Phone: () - 05/01 CBC w/ auto diff IG # K/uL 0.0 0.03 0.02 FINAL Aism banerjee [facility] - [place], [address] [place] [address] [address] [place] [id number] 0 Phone: () - 05/01 CBC w/ auto diff LY % % 14.0 41.0 38.7 FINAL Asim banerjee [facility] - [place], [address] [place] [address] [address] [place] [id number] 0 Phone: () - 05/01 CBC w/ auto diff MO % % 6.0 15.0 10.0 FINAL Asim banerjee [facility] - [place], [address] [place] [address] [address] [place] [id number] 0 Phone: () - 05/01 CBC w/ auto diff EO % % 0.0 7.0 4.3 FINAL Asim banerjee [facility] - [place], [address] [place] [address] [address] [place] [id number] 0 Phone: () - 05/01 CBC w/ auto diff BA % % 0.0 2.0 0.6 FINAL Asim banerjee [facility] - [place], [address] [place] [address] [address] [place] [id number] 0 Phone: () - 05/01 CBC w/ auto diff LY # K/uL 0.4 3.6 1.9 FINAL Asim banerjee [facility] - [place], [address] [place] [address] [address] [place] [id number] 0 Phone: () - 05/01 CBC w/ auto diff MO # K/uL 0.2 1.3 0.5 FINAL Asim banerjee [facility] - [place], [address] [place] [address] [address] [place] [id number] 0 Phone: () - 05/01 CBC w/ auto diff EO # K/uL 0.0 0.6 0.2 FINAL Asim banerjee [facility] - [place], [address] [place] [address] [address] [place] [id number] 0 Phone: () - 05/01 CBC w/ auto diff BA # K/uL 0.0 0.2 0.0 FINAL Asim Eli [facility] - [place], [address] [place] [address] [address] [place] [id number] 0 Phone: () - 05/01 CBC w/ auto diff NRBC % #/100W BC 0.0 0.2 0.0 FINAL Asim [facility]er[facility] - [place], [address] [place] [address] 200 [place] [id number] 0 Phone: () - 05/01 CBC w/ auto diff RBC M/uL 3.9 5.1 4.01 FINAL Asim [facility]er[facility] - [place], [address] [place] [address] 200 [place] [id number] 0 Phone: () - 05/01 CBC w/ auto diff HCT % 35.0 48.0 36.8 FINAL Asim banerjee [facility] - [place] [facility], [address] [place] [id number] 0 Phone: () - 05/01 CBC w/ auto diff MCV fL 80.0 104.0 91.8 FINAL Asim banerjee [facility] - [place], [address] [place] [address] 200 [place] [id number] 0 Phone: () - 05/01 CBC w/ auto diff MCH pg 26.0 35.0 31.2 FINAL Asim baner[facility] - [place], [address] [place] [address] 200 [place] [id number] 0 Phone: () - 05/01 CBC w/ auto diff MCHC g/dL 30.0 35.0 34.0 FINAL Asim [facility]er[facility] - [place], [address] [place] [address] 200 [place] [id number] 0 Phone: () - 05/01 CBC w/ auto diff MPV fL 9.5 13.4 9.1 Low FINAL Asim banerjee [facility] - [place] [facility], [address] [place] [address] 200 [place] [id number] 0 Phone: () - 05/01 CBC w/ auto diff RDW % 11.4 16.1 13.90 FINAL Asim [facility]er[facility] - [place], [address] [place] [address] 200 [place] [id number] 0 Phone: () - 05/01 CBC w/ auto diff Auto CBC comme nts Slide review to follow FINAL Asim banerjee [facility] - [place] [facility], [address] [place] [address] [address] [place] [id number] 0 Phone: () - 05/01 CBC w/ auto diff WBC K/uL 3.0 8.9 4.9 FINAL Asim banerjee [facility] - [place] [facility], [address] [place] [address] [address] [place] [id number] 0 Phone: () - 05/01 CBC w/ auto diff HGB g/dL 11.3 15.2 12.5 FINAL Asim [facility]erjee [facility] - [place] [facility], [address] [place] [address] [address] [place] [id number] 0 Phone: () - 05/01 Smear revie w panel CBC Smear revie w comme nts Large and-or giant platele ts present Atypica l (Reacti ve and/or Variant ) Lymphs present Abnor mal FINAL Asim [facility]er[facility] - [place] [facility], [address] [place] [address] [address] [place] [id number] 0 Phone: () - 05/01 Retic ulocy te count panel Retic ulocy te, absol [place] M/uL 0.02 0.08 0.08 FINAL Asim [facility]erjee [facility] - [place] [facility], [address] [place] [address] [address] [place] [id number] 0 Phone: () - 05/01 Retic ulocy te count panel Retic ulocy te count % 0.4 1.6 2.07 High FINAL Asim banerjee [facility] - [place] [facility], [address] [place] [address] [address] [place] [id number] 0 Phone: () - 05/01 Retic ulocy te count panel Immat ure retic ulocy te fract ion, % % 0.0 16.5 10.10 FINAL Asim banerjee [facility] - [place] [facility], [address] [place] [address] [address] [place] [id number] 0 Phone: () - 05/01 Retic ulocy te count panel Retic ulocy te cellu lar hemog lobin pg 28.0 37.0 36.5 FINAL Asim banerjee [facility] - [place] [facility], [address] [place] [address] [address] [place] [id number] 0 Phone: () - 05/01 Path perip heral blood slide revie w panel Patho logy/ Cytol ogy Morph ology SEE RESULTS BELOW CASE REPORTSpe cial Hematolog y Report Case: [id number] 6Authoriz ing Provider: Asim Cornelius MD Collected :05/01/20 20 1447Order ing Location: [facility] Received: 0 1212Patho logist: Seamus Vicente MDSp ecimen: BloodFINA L DIAGNOSIS PERIPHERA L BLOOD:1. Negative for circulati ng blasts2. 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 Staging bonemarro w biopsy was negative for lymphoma ([id number]) . Evaluate for circulati ngleukemi a cells.CBC AND DIFFERENT IALHEMATO LOGY PARAMETER STested at: [facility]ator yRESULTS EXPECTED VALUESWBC : 4.9 4.5-11x10 00/cummRB C: 4.0 4.00-5.20 mil/cummH GB: 12.5 12-16 gm/dlHCT: 36.8 33-51%MCV : 92.0 80-100 fl NORMOCYT ICMCH: 31.2 26-34 pgMCHC: 34.0 32-36 gm/dl NORMOCHRO MICRDW: 13.9 11.5-15.5 %PLT: 257 140-440x1 000/uLMPV : 9.1 6.5-11 flRetic: 2.07 0.5-1.5% ELEVATEDD ifferenti al Tested at: CentralAb solute (%) Expected (%)(x10*9 /L) (x10*9/L) Neutrophi ls: 2.3 (46.9) 1.7-7.0 (42-72%)L ymphocyte s: 2.1 (42.9) 0.9-2.9 (20-44%)M onocytes: 0.3 (6.1) <0.9 (0-11%)Eo sinophils : 0.1 (2) <0.5 (0-2%)Bas ophils: 0.0 (0) <0.3 (<3.0%)Im m Grans: 0.0 (0) <0.3 (0-3%)(Me tas, Myelos,Pr os)MICROS COPIC DESCRIPTI ONThe final diagnosis is based on microscop ic examinati on of appropria te sectionso f all specimens .ADDITION AL INFORMATI ONInterpr eted at [facility], [facility] - [address], [facility] [place], [place] [address]Wtje Performed by:[facility] - [facility] [place], [place] [address]Bhaz e : FINAL Asim Cornelius 05/01 CMP Album in g/dL 3.2 5.2 4.4 FINAL Asim [address]ens[address] [place] [id number] 0 Phone: () - 05/01 CMP Alkal ine phosp hatas e U/L 46.0 116.0 76 FINAL Asim Clemens a [address] [place] [id number] 0 Phone: () - 05/01 CMP ALT/S GPT U/L 7.0 40.0 12 FINAL Asim Clemensot a [address] [place] [id number] 0 Phone: () - 05/01 CMP AST/S GOT U/L 13.0 40.0 16 FINAL Asim Clemensot a [address] [place] [id number] 0 Phone: () - 05/01 CMP BUN mg/dL 9.0 23.0 19 FINAL Asim Clemensot a [address] [place] [id number] 0 Phone: () - 05/01 CMP Calci um mg/dL 8.7 10.[address] [id number] 0 Phone: () - 05/01 CMP Chlor ray mmol/L 96.0 114.[address] [id number] 0 Phone: () - 05/01 CMP CO2 mmol/L 20.0 31.[address] [id number] 0 Phone: () - 05/01 CMP Creat inine mg/dL 0.5 [address] [id number] 0 Phone: () - 05/01 CMP GFR estim ate ml/min /1.73m ^2 97.0 GFR is calculate d using the CKD-EPI equation. [address] [id number] 0 Phone: () - 05/01 CMP Gluco se mg/dL 73.0 126.0 [address] [id number] 0 Phone: () - 05/01 CMP Potas sium mmol/L 3.5 [address] [id number] [phone] Phone: () - 05/01 CMP Sodiu m mmol/L 136.0 145.[address] [id number] [phone] Phone: () - 05/01 CMP Bilir ubin, total mg/dL 0.3 1.2 0.[address] [id number] [phone] Phone: () - 05/01 CMP Total prote in g/dL 5.7 8.2 6.1 FINAL [facility] - [place], [address] [facility] [address] [place] [id number] [phone] Phone: () - 06/19 Retic ulocy te count panel Retic ulocy te, absol [place] M/uL 0.02 0.08 0.08 FINAL [facility] - [place] [facility], [address] [place] [address] [address] [place] [id number] [phone] Phone: () - 06/19 Retic ulocy te count panel Retic ulocy te count % 0.4 1.6 1.75 High FINAL [facility] - [place] [facility], [address] [place] [address] [address] [place] [id number] [phone] Phone: () - 06/19 Retic ulocy te count panel Immat ure retic ulocy te fract ion, % % 0.0 16.5 10.80 FINAL [facility] - [place] [facility], [address] [place] [address] [address] [place] [id number] 0 Phone: () - 06/19 Retic ulocy te count panel Retic ulocy te cellu lar hemog lobin pg 28.0 37.0 34.6 FINAL [facility] [place] [facility] [facility], [address] [place] [address] [address] [place] [id number] 0 Phone: () - 06/19 CBC w/ auto diff WBC K/uL 3.0 8.9 8.7 FINAL Asim banerjee [facility] - [place] [facility], [address] [place] [address] [address] [place] [id number] 0 Phone: () - 06/19 CBC w/ auto diff HGB g/dL 11.3 15.2 14.2 FINAL Asim banerjee [facility] - [place] [facility], [address] [place] [address] [address] [place] [id number] 0 Phone: () - 06/19 CBC w/ auto diff PLT K/uL 113.0 364.0 282 FINAL Asim banerjee [facility] - [place] [facility], [address] [place] [address] [address] [place] [id number] 0 Phone: () - 06/19 CBC w/ auto diff Dawna # (ANC) K/uL 1.6 6.6 4.9 FINAL Asim Clemensot a [facility] - [place] [facility], [address] [place] [address] [address] [place] [id number] 0 Phone: () - 06/19 CBC w/ auto diff Dawna % % 43.0 74.0 56.8 FINAL Asimmatt Clemensot a On[facility] - [place] [facility], [address] [place] [address] [address] [place] [id number] 0 Phone: () - 06/19 CBC w/ auto diff IG % % 0.0 0.5 0.5 FINAL Asimmatt Clemensot a [facility] - [place] [facility], [address] [place] [address] [address] [place] [id number] 0 Phone: () - 06/19 CBC w/ auto diff IG # K/uL 0.0 0.03 0.04 High FINAL Asim Clemensot a [facility] - [place] [facility], [address] [place] [address] [address] [place] [id number] 0 Phone: () - 06/19 CBC w/ auto diff LY % % 14.0 41.0 33.4 FINAL Asim Clemensot a [facility] - [place] [facility], [address] [place] [address] [address] [place] [id number] 0 Phone: () - 06/19 CBC w/ auto diff MO % % 6.0 15.0 7.0 FINAL Asim Clemensot a [facility] - [place] [facility], [address] [place] [address] [address] [place] [id number] 0 Phone: () - 06/19 CBC w/ auto diff EO % % 0.0 7.0 1.8 FINAL Asimmatt Clemensot a [facility] - [place] [facility], [address] [place] [address] [address] [place] [id number] 0 Phone: () - 06/19 CBC w/ auto diff BA % % 0.0 2.0 0.5 FINAL Asimmatt Clemensot a [facility] - [place] [facility], [address] [place] [address] [address] [place] [id number] 0 Phone: () - 06/19 CBC w/ auto diff LY # K/uL 0.4 3.6 2.9 FINAL Asimmatt Cornelius [place] [facility] [place] [facility], [address] [place] [address] [address] [place] [id number] 0 Phone: () - 06/19 CBC w/ auto diff MO # K/uL 0.2 1.3 0.6 FINAL Asim banerjee [facility] - [place] [facility], [address] [place] [address] [address] [place] [id number] 0 Phone: () - 06/19 CBC w/ auto diff EO # K/uL 0.0 0.6 0.2 FINAL Asim banerjee [facility] - [place] [facility], [address] [place] [address] [address] [place] [id number] 0 Phone: () - 06/19 CBC w/ auto diff BA # K/uL 0.0 0.2 0.0 FINAL Asim banerjee [facility] - [place] [facility], [address] [place] [address] [address] [place] [id number] 0 Phone: () - 06/19 CBC w/ auto diff NRBC % #/100W BC 0.0 0.2 0.0 FINAL Asim banerjee [facility] - [place] [facility], [address] [place] [address] [address] [place] [id number] 0 Phone: () - 06/19 CBC w/ auto diff RBC M/uL 3.9 5.1 4.67 FINAL Asim banerjee On[facility] - [place] [facility], [address] [place] [address] [address] [place] [id number] 0 Phone: () - 06/19 CBC w/ auto diff HCT % 35.0 48.0 41.7 FINAL Asim banerjee On[facility] - [place] [facility], [address] [place] [address] [address] [place] [id number] 0 Phone: () - 06/19 CBC w/ auto diff MCV fL 80.0 104.0 89.3 FINAL Asim banerjee [facility] - [place] [facility], [address] [place] [address] [address] [place] [id number] 0 Phone: () - 06/19 CBC w/ auto diff MCH pg 26.0 35.0 30.4 FINAL Asim banerjee On[facility] - [place] [facility], [address] [place] [address] [address] [place] [id number] 0 Phone: () - 06/19 CBC w/ auto diff MCHC g/dL 30.0 35.0 34.1 FINAL Asim banerjee Oncology [facility], [address] [place] [address] [address] [place] [id number] 0 Phone: () - 06/19 CBC w/ auto diff MPV fL 9.5 13.4 8.8 Low FINAL Asim banerjee Oncology [facility], [address] [place] [address] [address] [place] [id number] 0 Phone: () - 06/19 CBC w/ auto diff RDW % 11.4 16.1 13.10 FINAL Asim banerjee [facility], [address] [place] [address] 200 [place] [id number] 0 Phone: () - 06/19 LDH panel LDH U/L 120.0 246.0 246 FINAL Asim banerjee [facility], [address] [place] [address] [id number] 0 Phone: () - 06/19 CMP Album in g/dL 3.2 5.2 4.6 FINAL Asim banerjee [facility], [address] [facility] [id number] 0 Phone: () - 06/19 CMP Alkal ine phosp hatas e U/L 46.0 116.0 91 FINAL Asim banerjee [facility], [address] [facility] [id number] 0 Phone: () - 06/19 CMP ALT/S GPT U/L 7.0 40.0 27 FINAL Asim Clemens a [facility], [address] [facility] [id number] 0 Phone: () - 06/19 CMP AST/S GOT U/L 13.0 40.0 34 FINAL Asim banerjee [facility], [address] [facility] [id number] 0 Phone: () - 06/19 CMP BUN mg/dL 9.0 23.0 11 FINAL Asim Cornelius [facility], [address] [facility] 100 [facility] [id number] 0 Phone: () - 06/19 CMP Calci um mg/dL 8.7 10.4 9.4 [facility], [address] [facility] 100 [facility] [id number] 0 Phone: () - 06/19 CMP Chlor ray mmol/L 96.0 114.0 107 [facility] Asim Cornelius [place] [address] [address] [facility] 100 [facility] [id number] 0 Phone: () - 06/19 CMP CO2 mmol/L 20.0 31.0 26 The expected total allowable error for CO2 is 5.6%. We have seen up to 10% differenc e in values if reported at the end of the 96 hour stability window. Please consider the clinical significa nce of a 2.0-2.5 mmol/L lower reported CO2 value if reported at the end of the 96 hour stability window. [facility] Asim Cornelius [facility], [facility] [address] [id number] 0 Phone: () - 06/19 CMP Creat inine mg/dL 0.5 1.2 0.68 [facility] [place] [address] [id number] 0 Phone: () - 06/19 CMP GFR estim ate ml/min /1.73m ^2 103.9 GFR is calculate d using the CKD-EPI equation. [facility] Asim Cornelius [facility], [facility] [address] [id number] 0 Phone: () - 06/19 CMP Gluco se mg/dL 73.0 126.0 95 [facility] [place] [address] [address] [facility] 100 [facility] [id number] 0 Phone: () - 06/19 CMP Potas sium mmol/L 3.5 5.1 4.1 [facility] [place] [address] [id number] 0 Phone: () - 06/19 CMP Sodiu m mmol/L 136.0 145.0 140 FINAL Asim Clemensot a [facility] - [place], [address] [facility] [id number] 0 Phone: () - 06/19 CMP Bilir ubin, total mg/dL 0.3 1.2 0.2 Low FINAL Asim Cornelius [place] [facility] [place], [address] [facility] [id number] 0 Phone: () - 06/19 CMP Total prote in g/dL 5.7 8.2 6.9 FINAL Asim Clemensot a [facility] - [place], [address] [facility] [id number] 0 Phone: () - 06/19 Path perip heral blood slide revie w panel Patho logy/ Cytol ogy Morph ology SEE RESULTS BELOW CASE REPORTSpe cial Hematolog y Report Case: [id number] ing Provider: Asim Cornelius MD Collected :06/19/20 21 1340Order ing Location: [facility] Received: 1 1734Patho logist: Elvie Hernández MDSpecime n: BloodFINA L DIAGNOSIS PERIPHERA L BLOOD:1. Negative for circulati ng blasts2. Within normal limitsEle ctronical ly signed by Elvie Hernández MD on 06/20/2021 at 1:03 PMCOMMENT This case was also reviewed by Mis hill [place], [facility]CL INICAL INFORMATI ONThe patient is a 46-year-o ld female with a history of acute lymphoid leukemia. 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 Staging bone marrow biopsy was negative forlympho ma ([id number]) . Her most recent periphera l blood morpholog y 2019 ([id number] ,05/01/2020 ) was negative for circulati ng blasts and was within normal limits.CB C AND DIFFERENT IALHEMATO LOGY PARAMETER STested at: [place] [facility] [place] ISRESULTS EXPECTED VALUESWBC : 8.7 4.5-11x10 00/cummRB C: 4.67 4.00-5.20 mil/cummH GB: 14.2 12-16 gm/dlHCT: 41.7 33-51%MCV : 89.3 80-100 fl NORMOCYTI CMCH: 30.4 26-34 pgMCHC: 34.1 32-36 gm/dl NORMOCHRO MICRDW: 13.1 11.5-15.5 %PLT: 282 140-440x1 000/uLMPV : 8.8 6.5-11 flDiffere ntialAbso lute (%) Expected (%)(x10*9 /L) (x10*9/L) Neutrophi ls: 4.92 (56.8) 1.7-7.0 (42-72%)L ymphocyte s: 2.89 (33.4) 0.9-2.9 (20-44%)M onocytes: 0.61 (7) <0.9 (0-11%)Eo sinophils : 0.16 (1.8) <0.5 (0-2%)Bas ophils: 0.04 (.5) <0.3 (<3.0%)Im m Grans: 0.04 (.5) <0.3 (0-3%)(Me tas, Myelos,Pr os)MICROS COPIC DESCRIPTI ONThe final diagnosis is based on microscop ic examinati on of an appropria telystain ed blood smear.ADD ITIONAL INFORMATI ONInterpr eted at [facility], [facility] - [address], [place], [place] [address]Ujin Performed by:[facility], [address] - [facility] [place], [place] [address]Lnlp e : FINAL Asim Cornelius 01/19 [facility] other lab See geospatial extractor analysis d 05/01 [facility] other lab See geospatial extractor analysis d 05/06 LDH panel LDH U/L 120.0 246.0 191 FINAL Deepthi Clemensot a Oncology - [place], [address] [facility] [id number] 0 Phone: () - 05/06 CMP Album in g/dL 3.2 5.2 4.7 FINAL [facility], [address] [facility] [address] [id number] 0 Phone: () - 05/06 CMP Alkal ine phosp hatas e U/L 46.0 116.0 73 FINAL Deepthi Dodge [place] [address] [address] [facility] [address] [id number] 0 Phone: () - 05/06 CMP ALT/S GPT U/L 7.0 40.0 19 FINAL Deepthi Dodge [place] [address] [address] [facility] [address] [id number] 0 Phone: () - 05/06 CMP AST/S GOT U/L 13.0 40.0 21 FINAL Deepthi [place] [address] [address] [facility] [address] [id number] [phone] Phone: () - 05/06 CMP BUN mg/dL 9.0 23.0 16.0 FINAL Deepthi Dodge [facility] [address] [facility] [address] [id number] 0 Phone: () - 05/06 CMP Calci um mg/dL 8.7 10.4 9.8 FINAL Deepthi Dodge [place] [address] [address] [facility] [address] [id number] 0 Phone: () - 05/06 CMP Chlor ray mmol/L 96.0 114.0 107 FINAL Deepthi Dodge [facility] [address] [facility] [address] [phone] 0 Phone: () - 05/06 CMP CO2 [...] the 96 hour stability window. FINAL Deepthi Dodge [place] [address] [phone] 0 Phone: () - 05/06 CMP Creat inine mg/dL 0.5 1.2 0.80 FINAL Deepthi Clemens [place] [address] [id number] 0 Phone: () - 05/06 CMP GFR estim ate ml/min /1.73m ^2 90.1 GFR is calculate d using the CKD-EPI equation. FINAL Deep[place] [address] [phone] 0 Phone: () - 05/06 CMP Gluco se mg/dL 73.0 126.0 128 High FINAL Deep[place] [address] [id number] 0 Phone: () - 05/06 CMP Potas sium mmol/L 3.5 5.1 3.9 FINAL Deep[place] [address] [id number] 0 Phone: () - 05/06 CMP Sodiu m mmol/L 136.0 145.0 142 FINAL Deepthi Clemens [place] [address] [id number] 0 Phone: () - 05/06 CMP Bilir ubin, total mg/dL 0.3 1.2 0.2 Low FINAL Deep[place] [address] [id number] 0 Phone: () - 05/06 CMP Total prote in g/dL 5.7 8.2 7.1 FINAL Deepthi Dodge [place] [address] [phone] 0 Phone: () - 05/06 Retic ulocy te count panel Retic ulocy te, absol [place] M/uL 0.02 0.08 0.07 FINAL [facility], [address] [facility] [id number] 0 Phone: () - 05/06 Retic ulocy te count panel Retic ulocy te count % 0.4 1.6 1.60 FINAL Deepthi banerjee On[facility] - [place] [facility], [address] 200 [facility] [place] [phone] 0 Phone: () - 05/06 Retic ulocy te count panel Immat ure retic ulocy te fract ion, % % 0.0 16.5 9.70 FINAL Deepthi banerjee On[facility] - [place] [facility], [address] 200 [facility] [place] [id number] 0 Phone: () - 05/06 Retic ulocy te count panel Retic ulocy te cellu lar hemog lobin pg 28.0 37.0 33.0 FINAL Deepthi banerjee [facility], [address] [place] [address] 200 [facility] [place] [id number] 0 Phone: () - 05/06 CBC w/ auto diff WBC K/uL 3.0 8.9 8.4 FINAL Deepthi banerjee [facility], [address] [place] [address] 200 [facility] [place] [id number] 0 Phone: () - 05/06 CBC w/ auto diff HGB g/dL 11.3 15.2 13.6 FINAL Deepthi banerjee [facility], [address] [place] [address] 200 [facility] [place] [id number] 0 Phone: () - 05/06 CBC w/ auto diff PLT K/uL 113.0 364.0 266 FINAL Deepthi banerjee [facility], [address] [place] [address] 200 [facility] [place] [id number] 0 Phone: () - 05/06 CBC w/ auto diff Dawna # (ANC) K/uL 1.6 6.6 3.9 FINAL Deepthi banerjee [facility], [address] [place] [address] 200 [facility] [place] [id number] 0 Phone: () - 05/06 CBC w/ auto diff Dawna % % 43.0 74.0 46.7 FINAL Deepthi Clemens lav[place] [facility] - [place], [address] [place] [address] 200 [place] [id number] 0 Phone: () - 05/06 CBC w/ auto diff IG % % 0.0 0.5 0.5 FINAL Deepthi banerjee Oncology - [place], [address] [place] [address] 200 [place] [id number] 0 Phone: () - 05/06 CBC w/ auto diff IG # K/uL 0.0 0.03 0.04 High FINAL Deepthi banerjee Oncology - [place], [address] [place] [address] 200 [place] [id number] 0 Phone: () - 05/06 CBC w/ auto diff LY % % 14.0 41.0 44.8 High FINAL Deepthi banerjee Oncology - [place] [facility], [address] [place] [address] 200 [place] [id number] 0 Phone: () - 05/06 CBC w/ auto diff MO % % 6.0 15.0 6.2 FINAL Deepthi banerjee Oncology - [place], [address] [place] [address] 200 [place] [id number] 0 Phone: () - 05/06 CBC w/ auto diff EO % % 0.0 7.0 1.4 FINAL Deepthi banerjee Oncology - [place], [address] [place] [address] 200 [place] [id number] 0 Phone: () - 05/06 CBC w/ auto diff BA % % 0.0 2.0 0.4 FINAL Deepthi banerjee Oncology - [place], [address] [place] [address] 200 [place] [id number] 0 Phone: () - 05/06 CBC w/ auto diff LY # K/uL 0.4 3.6 3.8 High FINAL Deepthi banerjee Oncology - [place] [facility], [address] [place] [address] 200 [place] [id number] 0 Phone: () - 05/06 CBC w/ auto diff MO # K/uL 0.2 1.3 0.5 FINAL Deepthi banerjee Oncology - [place], [address] [place] [address] 200 [place] [id number] 0 Phone: () - 05/06 CBC w/ auto diff EO # K/uL 0.0 0.6 0.1 FINAL Deepthi banerjee Oncology - [place] [facility], [address] [place] [address] 200 [place] [id number] 0 Phone: () - 05/06 CBC w/ auto diff BA # K/uL 0.0 0.2 0.0 FINAL Deepthi banerjee Oncology - [place] [facility], [address] [place] [address] 200 [place] [id number] 0 Phone: () - 05/06 CBC w/ auto diff NRBC % #/100W BC 0.0 0.2 0.0 FINAL Deepthi banerjee Oncology - [place] [facility], [address] [place] [address] 200 [place] [id number] 0 Phone: () - 05/06 CBC w/ auto diff RBC M/uL 3.9 5.1 4.57 FINAL Deepthi banerjee Oncology - [place] [facility], [address] [place] [address] 200 [place] [id number] 0 Phone: () - 05/06 CBC w/ auto diff HCT % 35.0 48.0 40.7 FINAL Deepthi banerjee Oncology - [place] [facility], [address] [place] [address] 200 [place] [id number] 0 Phone: () - 05/06 CBC w/ auto diff MCV fL 80.0 104.0 89.1 FINAL Deepthi banerjee Oncology - [place] [facility], [address] [place] [address] 200 [place] [id number] 0 Phone: () - 05/06 CBC w/ auto diff MCH pg 26.0 35.0 29.8 FINAL Deepthi banerjee Oncology - [place] [facility], [address] [place] [address] 200 [place] [phone] 0 Phone: () - 05/06 CBC w/ auto diff MCHC g/dL 30.0 35.0 33.4 FINAL Deepthi banerjee Oncology - [place] [facility], [address] [place] [address] 200 [place] [id number] 0 Phone: () - 05/06 CBC w/ auto diff MPV fL 9.5 13.4 9.3 Low FINAL Deepthi banerjee Oncology [facility], [address] [place] [address] 200 [facility] [phone] 0 Phone: () - 05/06 CBC w/ auto diff RDW % 11.4 16.1 13.60 FINAL Deepthi banerjee Oncology [facility], [address] 200 [facility] [phone] 0 Phone: () - Medications Date Name [...] Acti ve Vital Signs Date Type Value 12/14/2019 Body Temperature 98.60 12/14/2019 Heart Beat 107.00 12/14/2019 BSA 1.66 12/14/2019 BMI 26.30 12/14/2019 Respiratory Rate 16.00 12/14/2019 Weight 143.80 12/14/2019 Pain Scale 4.00 12/14/2019 Intravascular Systolic 128 12/14/2019 Intravascular Diastolic 80 12/14/2019 Oxygen Saturation 94.00 12/14/2019 Height 62.00 12/28/2019 Body Temperature 98.00 12/28/2019 BSA 1.68 12/28/2019 Heart Beat 87.00 12/28/2019 Respiratory Rate 20.00 12/28/2019 Oxygen Saturation 93.00 12/28/2019 Intravascular Systolic 122 12/28/2019 Intravascular Diastolic 76 12/28/2019 Pain Scale 6.00 12/28/2019 Weight 147.00 12/28/2019 Height 62.00 12/28/2019 BMI 26.89 05/01/2020 Pain Scale 8.00 05/01/2020 Body Temperature 98.20 06/19/2021 BMI 32.56 06/19/2021 BSA 1.82 06/19/2021 Height 62.00 06/19/2021 Weight 178.00 06/19/2021 Pain Scale 0.00 06/19/2021 Intravascular Systolic 168 06/19/2021 Intravascular Diastolic 102 06/19/2021 Oxygen Saturation 98.00 06/19/2021 Respiratory Rate 16.00 06/19/2021 Heart Beat 96.00 06/19/2021 Body Temperature 98.20 05/06/2023 Body Temperature 98.50 05/06/2023 Heart Beat 87.00 05/06/2023 Respiratory Rate 16.00 05/06/2023 Oxygen Saturation 98.00 05/06/2023 BSA 1.79 05/06/2023 Pain Scale 6.00 05/06/2023 Weight 172.30 05/06/2023 Height 62.00 05/06/2023 BMI 31.51 05/06/2023 Intravascular Systolic 148 05/06/2023 Intravascular Diastolic 88
--- OUTSIDE RECORDS SUMMARY | 2025-02-07 17:08 | XMS_ITS ---
Author Name Interface, N2Bdartaj lity Address [address] [facility] [address] [address] Organization [facility] Address [address] [facility] [address] [address] Care Team Providers Care Carburetor Specialist Name Role Phone Asim Cornelius Unavailable Unavailable Allergies and Adverse Reactions Medication/Group [...] RC - 16 RECHECK - 16 RECHECK 05/01/2020 LABORDER CMP 05/01/2020 LABORDER CBC w/ [...] Visit LAB 15 MIN Encounters Date Name 05/01/2020 Acute lymphoid leuke abril, disease (disorder) 05/01/2020 Acute lymphoid leuke abril, disease (disorder) Diagnostic Results Date Type Test Units Lower Limit Upper Limit Result Flag Comments Status Ordered By Specimen Source Lab Address 05/01 Path perip heral blood slide revie w panel Patho logy/ Cytol ogy Morph ology SEE RESULTS BELOW CASE REPORTSpe cial Hematolog y Report Case: [id number] 6Authoriz ing Provider: Asim Cornelius MD Collected :05/01/20 20 1447Order ing Location: [facility] Received: 0 1212Patho logist: Seamus [...] iagnosed by left neck lymph node biopsy ([id number] , 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 Staging bonemarro w biopsy was negative for lymphoma ([id number]) . Evaluate for circulati ngleukemi a cells.CBC AND DIFFERENT IALHEMATO LOGY PARAMETER STested at: Central Laborator yRESULTS EXPECTED VALUESWBC : 4.9 4.5-11x10 00/cummRB C: 4.0 4.00-5.20 mil/cummH GB: 12.5 12-16 gm/dlHCT: 36.8 33-51%MCV : 92.0 80-100 fl NORMOCYTI CMCH: 31.2 26-34 pgMCHC: 34.0 32-36 gm/dl NORMOCHRO [...] specimens .ADDITION AL INFORMATI ONInterpr eted at [facility], [facility] - [address], [facility] [place], [place] [address]Lnov Performed by:[facility]ric[facility] Assistant Laborator y[address] - [facility], [place] [address]Bxuy e [phone] FINAL Asim Ashli 05/01 Retic ulocy te count panel Retic ulocy te, absol squaxin M/uL 0.02 0.08 0.08 FINAL Asim Clemens a Oncology - [facility] lis, [address] [place] [address] [address] [place] [id number] 0 Phone: () - 05/01 Retic ulocy te count panel Retic ulocy te count % 0.4 1.6 2.07 High FINAL Asim Clemensot [facility], [address] [facility] [address] [place] [id number] 0 Phone: () - 05/01 Retic ulocy te count panel Immat ure retic ulocy te fract ion, % % 0.0 16.5 10.10 FINAL Asim banerjee Oncology - [facility], [address] [place] [phone] 0 Phone: () - 05/01 Retic ulocy te count panel Retic ulocy te cellu lar hemog lobin pg 28.0 37.0 36.5 FINAL Asim banerjee Oncology - [facility], [address] [place] [address] [address] [place] [id number] 0 Phone: () - 05/01 Smear revie w panel CBC Smear revie w comme nts Large and-or giant platele ts present Atypica l (Reacti ve and/or Variant ) Lymphs present Abnor mal FINAL Asim banerjee Oncology - [facility], [address] [place] [id number] 0 Phone: () - 05/01 CBC w/ auto diff PLT K/uL 113.0 364.0 257 FINAL Asim banerjee Oncology - [facility], [address] [place] [id number] 0 Phone: () - 05/01 CBC w/ auto diff Dawna # (ANC) K/uL 1.6 6.6 2.2 FINAL Asim banerjee Oncology - [facility], [address] [place] [id number] 0 Phone: () - 05/01 CBC w/ auto diff Dawna % % 43.0 74.0 46.0 FINAL Asim banerjee Oncology - [facility], [address] [place] [address] [address] [place] [id number] 0 Phone: () - 05/01 CBC w/ auto diff IG % % 0.0 0.5 0.4 FINAL Asim banerjee Oncology - [facility], [address] [place] [address] [address] [place] [id number] 0 Phone: () - 05/01 CBC w/ auto diff IG # K/uL 0.0 0.03 0.02 FINAL Asim banerjee Oncology - [facility], [address] [place] [address] [address] [place] [id number] 0 Phone: () - 05/01 CBC w/ auto diff LY % % 14.0 41.0 38.7 FINAL Asim Clemensot a Oncology - [place] [facility], [address] [place] [address] 200 [place] [id number] 0 Phone: () - 05/01 CBC w/ auto diff MO % % 6.0 15.0 10.0 FINAL Asimmatt Clemensot a Oncology - [place] [facility], [address] [place] [address] 200 [place] [id number] 0 Phone: () - 05/01 CBC w/ auto diff EO % % 0.0 7.0 4.3 FINAL Asimmatt Clemensot a Oncology - [place] [facility], [address] [place] [id number] 0 Phone: () - 05/01 CBC w/ auto diff BA % % 0.0 2.0 0.6 FINAL Asim Clemensot a Oncology - [place] [facility], [address] 200 [facility] [place] [id number] 0 Phone: () - 05/01 CBC w/ auto diff LY # K/uL 0.4 3.6 1.9 FINAL Asimmatt Clemensot a Oncology - [place] [facility], [address] [place] [id number] 0 Phone: () - 05/01 CBC w/ auto diff MO # K/uL 0.2 1.3 0.5 FINAL Asim Clemensot a Oncology - [place] [facility], [address] [place] [address] 200 [place] [id number] 0 Phone: () - 05/01 CBC w/ auto diff EO # K/uL 0.0 0.6 0.2 FINAL Asimmatt Clemensot a Oncology - [place] [facility], [address] [place] [id number] 0 Phone: () - 05/01 CBC w/ auto diff BA # K/uL 0.0 0.2 0.0 FINAL Asimmatt Clemensot a Oncology - [place] [facility], [address] [place] [address] [address] [place] [id number] 0 Phone: () - 05/01 CBC w/ auto diff NRBC % #/100W BC 0.0 0.2 0.0 FINAL Asim banerjee Oncology - [place] [facility], [address] [place] [address] [address] [place] [id number] 0 Phone: () - 05/01 CBC w/ auto diff RBC M/uL 3.9 5.1 4.01 FINAL Asim banerjee Oncology - [place] [facility], [address] [place] [address] [address] [place] [id number] 0 Phone: () - 05/01 CBC w/ auto diff HCT % 35.0 48.0 36.8 FINAL Asim banerjee Oncology - [place] [facility], [address] [place] [address] [address] [place] [id number] 0 Phone: () - 05/01 CBC w/ auto diff MCV fL 80.0 104.0 91.8 FINAL Asim banerjee Oncology - [place] [facility], [address] [place] [address] [address] [place] [id number] 0 Phone: () - 05/01 CBC w/ auto diff MCH pg 26.0 35.0 31.2 FINAL Asim banerjee Oncology - [place] [facility], [address] [place] [address] [address] [place] [id number] 0 Phone: () - 05/01 CBC w/ auto diff MCHC g/dL 30.0 35.0 34.0 FINAL Asim banerjee Oncology - [place] [facility], [address] [place] [address] [address] [place] [id number] 0 Phone: () - 05/01 CBC w/ auto diff MPV fL 9.5 13.4 9.1 Low FINAL Asim banerjee Oncology - [place] [facility], [address] [place] [address] [address] [place] [id number] 0 Phone: () - 05/01 CBC w/ auto diff RDW % 11.4 16.1 13.90 FINAL Asim banerjee Oncology - [place] [facility], [address] [place] [address] [address] [place] [id number] 0 Phone: () - 05/01 CBC w/ auto diff Auto CBC comme nts Slide review to follow FINAL Asim banerjee [facility]cology - [place] [facility], [address] [place] [address] [address] [place] [id number] 0 Phone: () - 05/01 CBC w/ auto diff WBC K/uL 3.0 8.9 4.9 FINAL Asim banerjee [facility], [address] [place] [id number] 0 Phone: () - 05/01 CBC w/ auto diff HGB g/dL 11.3 15.2 12.5 FINAL Asim banerjee [facility], [address] [place] [id number] 0 Phone: () - 05/01 CMP Album in g/dL 3.2 5.2 4.4 FINAL Asim banerjee [address] [id number] 0 Phone: () - 05/01 CMP Alkal ine phosp hatas e U/L 46.0 116.0 76 FINAL Asimmatt Clemens [place] [address] [phone] 0 Phone: () - 05/01 CMP ALT/S GPT U/L 7.0 40.0 12 FINAL Asimmatt Clemens[address] [place] [id number] 0 Phone: () - 05/01 CMP AST/S GOT U/L 13.0 40.0 16 FINAL Asimmatt Clemens lavonne [address] [id number] 0 Phone: () - 05/01 CMP BUN mg/dL 9.0 23.0 19 FINAL Asimmatt Clemens lavonne [address] [place] [phone] 0 Phone: () - 05/01 CMP Calci um mg/dL 8.7 10.4 9.4 FINAL Asimmatt banerjee [address] [place] [phone] 0 Phone: () - 05/01 CMP Chlor ray mmol/L 96.0 114.0 107 FINAL Asimmatt Clemens[address] [phone] 0 Phone: () - 05/01 CMP CO2 mmol/L 20.0 31.0 [address] [id number] 0 Phone: () - 05/01 CMP Creat inine mg/dL 0.5 1.2 0.[address] [id number] 0 Phone: () - 05/01 CMP GFR estim ate ml/min /1.73m ^2 97.0 GFR is calculate d using the CKD-EPI equation. FINAL [address] [phone] 0 Phone: () - 05/01 CMP Gluco se mg/dL 73.0 126.0 150 High FINAL [address] [id number] 0 Phone: () - 05/01 CMP Potas sium mmol/L 3.5 5.[address] [place] [id number] 0 Phone: () - 05/01 CMP Sodiu m mmol/L 136.0 145.[address] [id number] 0 Phone: () - 05/01 CMP Bilir ubin, total mg/dL 0.3 1.2 0.2 Low FINAL [address] [place] [id number] 0 Phone: () - 05/01 CMP Total prote in g/dL 5.7 8.[address] [place] [id number] 0 Phone: () - 06/19 Retic ulocy te count panel Retic ulocy te, absol squaxin M/uL 0.02 0.08 0.08 FINAL [facility] lis, [address] [place] [id number] 0 Phone: () - 06/19 Retic ulocy te count panel Retic ulocy te count % 0.4 1.6 1.75 High FINAL Asim banerjee Oncology - [facility], [address] [place] [id number] 0 Phone: () - 06/19 Retic ulocy te count panel Immat ure retic ulocy te fract ion, % % 0.0 16.5 10.80 FINAL Asim banerjee [facility]cology - [place] [facility], [address] [place] [address] 200 [place] [id number] 0 Phone: () - 06/19 Retic ulocy te count panel Retic ulocy te cellu lar hemog lobin pg 28.0 37.0 34.6 FINAL Asim banerjee Oncology - [place] [facility], [address] [place] [id number] 0 Phone: () - 06/19 CBC w/ auto diff WBC K/uL 3.0 8.9 8.7 FINAL Asim banerjee Oncology - [place] [facility], [address] [place] [id number] 0 Phone: () - 06/19 CBC w/ auto diff HGB g/dL 11.3 15.2 14.2 FINAL Asim banerjee Oncology - [place] [facility], [address] 200 [place] [id number] 0 Phone: () - 06/19 CBC w/ auto diff PLT K/uL 113.0 364.0 282 FINAL Asim banerjee Oncology - [facility], [address] [place] [id number] 0 Phone: () - 06/19 CBC w/ auto diff Dawna # (ANC) K/uL 1.6 6.6 4.9 FINAL Asim banerjee Oncology - [facility], [address] [place] [id number] 0 Phone: () - 06/19 CBC w/ auto diff Dawna % % 43.0 74.0 56.8 FINAL Asim banerjee Oncology - [facility], [address] [place] [id number] 0 Phone: () - 06/19 CBC w/ auto diff IG % % 0.0 0.5 0.5 FINAL Asim banerjee [facility]cology - [place] [facility], [address] [place] [id number] 0 Phone: () - 06/19 CBC w/ auto diff IG # K/uL 0.0 0.03 0.04 High FINAL Asim banerjee [facility]cology - [place] [facility], [address] [place] [address] 200 [place] [id number] 0 Phone: () - 06/19 CBC w/ auto diff LY % % 14.0 41.0 33.4 FINAL Asim banerjee [facility]cology - [place] [facility], [address] [place] [id number] 0 Phone: () - 06/19 CBC w/ auto diff MO % % 6.0 15.0 7.0 FINAL Asim banerjee [facility]cology - [place] [facility], [address] 200 [facility] [place] [id number] 0 Phone: () - 06/19 CBC w/ auto diff EO % % 0.0 7.0 1.8 FINAL Asim banerjee [facility]cology - [place] [facility], [address] [place] [id number] 0 Phone: () - 06/19 CBC w/ auto diff BA % % 0.0 2.0 0.5 FINAL Asim Eli a Oncology - [place] [facility], [address] [place] [id number] 0 Phone: () - 06/19 CBC w/ auto diff LY # K/uL 0.4 3.6 2.9 FINAL Asimmatt Eli a Oncology - [place] [facility], [facility] [address] [place] [id number] 0 Phone: () - 06/19 CBC w/ auto diff MO # K/uL 0.2 1.3 0.6 FINAL Asim Eli a [facility] - [place] [facility], [address] [place] [id number] 0 Phone: () - 06/19 CBC w/ auto diff EO # K/uL 0.0 0.6 0.2 FINAL Asim banerjee Oncology - [place] [facility], [address] [place] [address] [address] [place] [id number] 0 Phone: () - 06/19 CBC w/ auto diff BA # K/uL 0.0 0.2 0.0 FINAL Asim banerjee Oncology - [place] [facility], [address] [place] [address] [address] [place] [id number] 0 Phone: () - 06/19 CBC w/ auto diff NRBC % #/100W BC 0.0 0.2 0.0 FINAL Asim banerjee Oncology - [place] [facility], [address] [place] [address] [address] [place] [id number] 0 Phone: () - 06/19 CBC w/ auto diff RBC M/uL 3.9 5.1 4.67 FINAL Asim banerjee Oncology - [place] [facility], [address] [place] [address] [address] [place] [id number] 0 Phone: () - 06/19 CBC w/ auto diff HCT % 35.0 48.0 41.7 FINAL Asim banerjee Oncology - [place] [facility], [address] [place] [address] [address] [place] [id number] 0 Phone: () - 06/19 CBC w/ auto diff MCV fL 80.0 104.0 89.3 FINAL Asim banerjee Oncology - [place] [facility], [address] [place] [address] [address] [place] [id number] 0 Phone: () - 06/19 CBC w/ auto diff MCH pg 26.0 35.0 30.4 FINAL Asim banerjee Oncology - [place] [facility], [address] [place] [address] [address] [place] [id number] 0 Phone: () - 06/19 CBC w/ auto diff MCHC g/dL 30.0 35.0 34.1 FINAL Asim banerjee Oncology - [place] [facility], [address] [place] [address] [address] [place] [id number] 0 Phone: () - 06/19 CBC w/ auto diff MPV fL 9.5 13.4 8.8 Low FINAL Asim banerjee [facility] lis, [address] [place] [address] [address] [place] [id number] 0 Phone: () - 06/19 CBC w/ auto diff RDW % 11.4 16.1 13.10 FINAL Asim banerjee [facility], [address] [place] [address] [address] [place] [id number] 0 Phone: () - 06/19 LDH panel LDH U/L 120.0 246.0 246 FINAL Asim banerjee [facility], [address] [place] [address] [phone] 0 Phone: () - 06/19 CMP Album in g/dL 3.2 5.2 4.6 FINAL Asim banerjee [facility], [address] [facility] [address] [place] [address] [id number] 0 Phone: () - 06/19 CMP Alkal ine phosp hatas e U/L 46.0 116.0 91 FINAL Asim Clemens lavonne [facility], [address] [place] [address] [id number] 0 Phone: () - 06/19 CMP ALT/S GPT U/L 7.0 40.0 27 [facility] [address] [facility] [address] [place] [address] [phone] 0 Phone: () - 06/19 CMP AST/S GOT U/L 13.0 40.0 34 [facility], [address] [facility] [address] [place] [address] [phone] 0 Phone: () - 06/19 CMP BUN mg/dL 9.0 23.0 11 FINAL Asim Clemens lavonne [facility] [address] [facility] [address] [place] [address] [id number] 0 Phone: () - 06/19 CMP Calci um mg/dL 8.7 10.4 9.4 FINAL Asim banerjee [facility], [address] [place] [address] [phone] 0 Phone: () - 06/19 CMP Chlor ray mmol/L 96.0 114.0 107 FINAL Asim [facility], [address] [facility] [address] [facility] [id number] 0 Phone: () - 06/19 CMP CO2 [...] of the 96 hour stability window. FINAL Asim [facility], [address] [id number] 0 Phone: () - 06/19 CMP Creat inine mg/dL 0.5 1.2 0.68 [facility] [address] [id number] 0 Phone: () - 06/19 CMP GFR estim ate ml/min /1.73m ^2 103.9 GFR is calculate d using the CKD-EPI equation. FINAL [place] [address] [id number] 0 Phone: () - 06/19 CMP Gluco se mg/dL 73.0 126.0 95 [facility] [address] [facility] [address] [id number] 0 Phone: () - 06/19 CMP Potas sium mmol/L 3.5 5.1 4.1 [facility] [address] [facility] [address] [id number] 0 Phone: () - 06/19 CMP Sodiu m mmol/L 136.0 145.0 140 [facility] [address] [facility] [address] [id number] 0 Phone: () - 06/19 CMP Bilir ubin, total mg/dL 0.3 1.2 0.2 Low [facility], [address] [facility] [address] [phone] 0 Phone: () - 06/19 CMP Total prote in g/dL 5.7 8.2 6.9 FINAL Asim Cornelius [facility] [place], [address] [facility] [phone] 0 Phone: () - 06/19 Path perip heral blood slide revie w panel Patho logy/ Cytol ogy Morph ology SEE RESULTS BELOW CASE REPORTSpe cial Hematolog y Report Case: [id number] ing Provider: Asim Cornelius MD Collected :06/19/20 21 1340Order ing Location: [facility] Received: 1 1734Patho logist: Elvie Hernández MDSpecime n: BloodFINA L DIAGNOSIS PERIPHERA L BLOOD:1. Negative for circulati ng blasts2. Within normal limitsEle ctronical ly signed by Elvie Hernández MD on 06/20/2021 at 1:03 PMCOMMENT This case was also reviewed by Mis [place], [place] ([facility]).CL INICAL INFORMATI ONThe patient is a 46-year-o ld female with a history of acute lymphoid leukemia. 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 Staging bone marrow biopsy was negative forlympho ma ([id number]) . Her most recent periphera l blood morpholog y 2019 ([id number] ,05/01/2020 ) was negative for circulati ng [...] blood smear.ADD ITIONAL INFORMATI ONInterpr eted at [facility], [facility] - [address], [place], [place] [address]Irgd Performed by:[facility] - [place], [place] [address]Pmcm e [phone] FINAL Asim Cornelius 01/19 [facility] [place] See women's studies professor d 05/01 [facility] [place] See women's studies professor d 05/06 LDH panel LDH U/L 120.0 246.0 191 FINAL Deepthi [facility], [address] [place] [id number] 0 Phone: () - 05/06 CMP Album in g/dL 3.2 5.2 4.7 FINAL Deepthi Steelsalimayobany [facility], [address] [place] [phone] 0 Phone: () - 05/06 CMP Alkal ine phosp hatas e U/L 46.0 116.0 73 FINAL Deepthi Steelshannon [facility], [address] [phone] 0 Phone: () - 05/06 CMP ALT/S GPT U/L 7.0 40.0 19 FINAL Deepthi banerjee [place] [address] [id number] 0 Phone: () - 05/06 CMP AST/S GOT U/L 13.0 40.0 21 FINAL [place] [address] [id number] 0 Phone: () - 05/06 CMP BUN mg/dL 9.0 23.0 16.0 FINAL Deepthi Dodge [place] [address] [phone] 0 Phone: () - 05/06 CMP Calci um mg/dL 8.7 10.4 9.8 FINAL Deepthi Dodge [place] [address] [id number] 0 Phone: () - 05/06 CMP Chlor ray mmol/L 96.0 114.0 107 FINAL Deepthi Steelyobany [place] [address] [id number] 0 Phone: () - 05/06 CMP CO2 [...] the 96 hour stability window. FINAL Deep[place] [address] [id number] 0 Phone: () - 05/06 CMP Creat inine mg/dL 0.5 1.2 0.80 FINAL Deepthi Dodge [place] [address] [address] [facility] [address] [phone] 0 Phone: () - 05/06 CMP GFR estim ate ml/min /1.73m ^2 90.1 GFR is calculate d using the CKD-EPI equation. FINAL Deepthi Clemens lavonne [facility], [address] [phone] 0 Phone: () - 05/06 CMP Gluco se mg/dL 73.0 126.0 128 High FINAL [facility], [address] [phone] 0 Phone: () - 05/06 CMP Potas sium mmol/L 3.5 5.1 3.9 FINAL [facility], [address] [id number] 0 Phone: () - 05/06 CMP Sodiu m mmol/L 136.0 145.0 142 FINAL [facility], [address] [phone] 0 Phone: () - 05/06 CMP Bilir ubin, total mg/dL 0.3 1.2 0.2 Low FINAL [facility], [address] [id number] 0 Phone: () - 05/06 CMP Total prote in g/dL 5.7 8.2 7.1 FINAL Deepthi Dodge [facility], [address] [id number] 0 Phone: () - 05/06 Retic ulocy te count panel Retic ulocy te, absol squaxin M/uL 0.02 0.08 0.07 FINAL Deepthi Dodge [facility], [address] [place] [address] 200 [facility] [phone] 0 Phone: () - 05/06 Retic ulocy te count panel Retic ulocy te count % 0.4 1.6 1.60 FINAL Deepthi Dodge [facility], [address] [place] [address] 200 [facility] [phone] 0 Phone: () - 05/06 Retic ulocy te count panel Immat ure retic ulocy te fract ion, % % 0.0 16.5 9.70 FINAL Deepthi banerjee [facility] - [facility], [address] [place] [address] [address] [place] [id number] 0 Phone: () - 05/06 Retic ulocy te count panel Retic ulocy te cellu lar hemog lobin pg 28.0 37.0 33.0 FINAL Deepthi banerjee [facility]cology - [facility], [address] [place] [address] [address] [place] [id number] 0 Phone: () - 05/06 CBC w/ auto diff WBC K/uL 3.0 8.9 8.4 FINAL Deepthi Clemens lavonne [facility] - [facility], [address] [place] [id number] 0 Phone: () - 05/06 CBC w/ auto diff HGB g/dL 11.3 15.2 13.6 FINAL Deepthi Clemens lavonne [facility], [address] [place] [id number] 0 Phone: () - 05/06 CBC w/ auto diff PLT K/uL 113.0 364.0 266 FINAL Deepthi Clemens lavonne [facility], [address] [place] [id number] 0 Phone: () - 05/06 CBC w/ auto diff Dawna # (ANC) K/uL 1.6 6.6 3.9 FINAL Deepthi Clemens lavonne [facility], [address] [place] [address] [address] [place] [id number] 0 Phone: () - 05/06 CBC w/ auto diff Dawna % % 43.0 74.0 46.7 FINAL Deepthi banerjee [facility], [address] [place] [address] [address] [place] [id number] 0 Phone: () - 05/06 CBC w/ auto diff IG % % 0.0 0.5 0.5 FINAL Deepthi Clemens lavonne [facility], [address] [place] [address] [address] [place] [id number] 0 Phone: () - 05/06 CBC w/ auto diff IG # K/uL 0.0 0.03 0.04 High FINAL Deepthi banerjee [facility] [place], [address] [place] [address] [address] [place] [id number] 0 Phone: () - 05/06 CBC w/ auto diff LY % % 14.0 41.0 44.8 High FINAL Deepthi banerjee [facility] - [place], [address] [place] [address] [address] [place] [id number] 0 Phone: () - 05/06 CBC w/ auto diff MO % % 6.0 15.0 6.2 FINAL Deepthi Eli a [facility] - [place], [address] [place] [address] [address] [place] [id number] 0 Phone: () - 05/06 CBC w/ auto diff EO % % 0.0 7.0 1.4 FINAL Deepthi Eli a [facility] - [place], [address] [place] [address] [address] [place] [id number] 0 Phone: () - 05/06 CBC w/ auto diff BA % % 0.0 2.0 0.4 FINAL Deepthi Eli a [facility] - [place], [address] [place] [address] [address] [place] [id number] 0 Phone: () - 05/06 CBC w/ auto diff LY # K/uL 0.4 3.6 3.8 High FINAL Deepthi Eli a [facility] - [place], [address] [place] [address] [address] [place] [id number] 0 Phone: () - 05/06 CBC w/ auto diff MO # K/uL 0.2 1.3 0.5 FINAL Deepthi banerjee [facility] - [place], [address] [place] [address] [address] [place] [id number] 0 Phone: () - 05/06 CBC w/ auto diff EO # K/uL 0.0 0.6 0.1 FINAL Deepthi banerjee [facility] - [place], [address] [place] [address] [address] [place] [id number] 0 Phone: () - 05/06 CBC w/ auto diff BA # K/uL 0.0 0.2 0.0 FINAL Deepthi banerjee [facility] - [place], [address] [place] [address] [address] [place] [id number] Phone: () - 05/06 CBC w/ auto diff NRBC % #/100W BC 0.0 0.2 0.0 FINAL [facility], [address] [place] [address] [address] [place] [id number] Phone: () - 05/06 CBC w/ auto diff RBC M/uL 3.9 5.1 4.57 FINAL [facility], [address] [place] [address] [address] [place] [id number] 0 Phone: () - 05/06 CBC w/ auto diff HCT % 35.0 48.0 40.7 FINAL [facility], [address] [place] [address] [address] [place] [id number] Phone: () - 05/06 CBC w/ auto diff MCV fL 80.0 104.0 89.1 FINAL [facility], [address] [place] [address] [address] [place] [id number] 0 Phone: () - 05/06 CBC w/ auto diff MCH pg 26.0 35.0 29.8 FINAL [facility], [address] [place] [id number] 0 Phone: () - 05/06 CBC w/ auto diff MCHC g/dL 30.0 35.0 33.4 FINAL Deepthi banerjee [facility] - [facility], [address] [place] [address] [address] [place] [id number] 0 Phone: () - 05/06 CBC w/ auto diff MPV fL 9.5 13.4 9.3 Low FINAL Deepthi banerjee [facility] - [facility], [address] [place] [address] [address] [place] [id number] 0 Phone: () - 05/06 CBC w/ auto diff RDW % 11.4 16.1 13.60 FINAL Deepthi banerjee [facility] - [facility], [address] 200 [facility] [phone] 0 Phone: () - Medications Date Name [...] Acti ve Vital Signs Date Type Value 05/01/2020 Pain Scale 8.00 05/01/2020 Body Temperature 98.20 06/19/2021 BMI 32.56 06/19/2021 BSA 1.82 06/19/2021 Height 62.00 06/19/2021 Weight 178.00 06/19/2021 Pain Scale 0.00 06/19/2021 Intravascular Systolic 168 06/19/2021 Intravascular Diastolic 102 06/19/2021 Oxygen Saturation 98.00 06/19/2021 Respiratory Rate 16.00 06/19/2021 Heart Beat 96.00 06/19/2021 Body Temperature 98.20 05/06/2023 Body Temperature 98.50 05/06/2023 Heart Beat 87.00 05/06/2023 BSA 1.79 05/06/2023 BMI 31.51 05/06/2023 Respiratory Rate 16.00 05/06/2023 Weight 172.30 05/06/2023 Pain Scale 6.00 05/06/2023 Intravascular Systolic 148 05/06/2023 Intravascular Diastolic 88 05/06/2023 Oxygen Saturation 98.00 05/06/2023 Height 62.00
--- OUTSIDE RECORDS SUMMARY | 2025-02-07 17:08 | XMS_ITS ---
Author Name Interface, [id number] lity Address [address] [place] [address] [address] [place] [address] Organization [facility] Address [address] [place] [address] [address] [address] Care Team Providers Care Loss Prevention Coordinator Name Role Phone Aliza Gan Unavailable Unavailable Allergies and Adverse Reactions Medication/Group [...] ARM DRAW - 16 ARM DRAW 06/19/2021 LABORDER CMP 06/19/2021 LABORDER CBC w/ [...] Visit LAB 15 MIN Encounters Date Name 06/19/2021 Acute lymphoid leuke abril, disease (disorder) 06/19/2021 Acute lymphoid leuke abril, disease (disorder) Diagnostic Results Date Type Test Units Lower Limit Upper Limit Result Flag Comments Status Ordered By Specimen Source Lab Address 06/19 LDH panel LDH U/L 120.0 246.[address] [facility] - [place], [address] [facility] [phone] Phone: () - 06/19 Path perip heral blood slide revie w panel Patho logy/ Cytol ogy Morph ology SEE RESULTS BELOW CASE REPORTSpe cial Hematolog y Report Case: [id number] ing Provider: Asim Cornelius MD Collected :06/19/20 21 1340Order ing Location: [facility] Received: 1 1734Patho logist: Elvie Hernández MDSpecime n: BloodFINA L DIAGNOSIS PERIPHERA L BLOOD:1. Negative for circulati ng blasts2. Within normal limitsEle ctronical ly signed by Elvie Hernández MD on 06/20/2021 at 1:03 PMCOMMENT This case was also reviewed by Mis hill MT, MS (ASCP).CL INICAL INFORMATI ONThe patient is a 46-year-o ld female with a history of acute lymphoid leukemia. 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 Staging bone marrow biopsy was negative forlympho ma ([id number]) . Her most recent periphera l blood morpholog y 2019 ([id number] ,05/01/2020 ) was negative for circulati ng blasts and was within normal limits.CB C AND DIFFERENT IALHEMATO LOGY PARAMETER STested at: [facility] [place] ISRESULTS EXPECTED VALUESWBC : 8.7 4.5-11x10 00/cummRB C: 4.67 4.00-5.20 mil/cummH GB: 14.2 12-16 gm/dlHCT: 41.7 33-51%MCV : 89.3 80-100 fl NORMOCYT ICMCH: 30.4 26-34 pgMCHC: 34.1 32-36 gm/dl NORMOCHRO [...] blood smear.ADD ITIONAL INFORMATI ONInterpr eted at [facility] - [address], [place], [place] [address]Hjdi Performed by:[facility] - [place], [place] [address]Mavm e : FINAL Asim Cornelius 06/19 CBC w/ auto diff WBC K/uL 3.0 8.9 8.7 FINAL Asim Clemensot a Oncology - [facility], [address] [place] [id number] 0 Phone: () - 06/19 CBC w/ auto diff HGB g/dL 11.3 15.2 14.2 FINAL Asim Clemensot a Oncology - [facility], [address] [place] [id number] 0 Phone: () - 06/19 CBC w/ auto diff PLT K/uL 113.0 364.0 282 FINAL Asim Clemensot a Oncology - [facility], [address] [place] [id number] 0 Phone: () - 06/19 CBC w/ auto diff Dawna # (ANC) K/uL 1.6 6.6 4.9 FINAL Asim Eli a [facility] [place] [facility], [address] [place] [address] [address] [place] [id number] 0 Phone: () - 06/19 CBC w/ auto diff Dawna % % 43.0 74.0 56.8 FINAL Asim Eli a [facility] [place] [facility], [address] [place] [address] [address] [place] [phone] 0 Phone: () - 06/19 CBC w/ auto diff IG % % 0.0 0.5 0.5 FINAL Asim Eli a [facility] [place] [facility], [address] [place] [address] [address] [place] [id number] 0 Phone: () - 06/19 CBC w/ auto diff IG # K/uL 0.0 0.03 0.04 High FINAL Asim Eli a [facility] [place] [facility], [address] [place] [address] [address] [place] [id number] 0 Phone: () - 06/19 CBC w/ auto diff LY % % 14.0 41.0 33.4 FINAL Asim Eli a [facility] [place] [facility], [address] [place] [address] [address] [place] [id number] 0 Phone: () - 06/19 CBC w/ auto diff MO % % 6.0 15.0 7.0 FINAL Asim Eli a [facility] [place] [facility], [address] [place] [address] [address] [place] [id number] 0 Phone: () - 06/19 CBC w/ auto diff EO % % 0.0 7.0 1.8 FINAL Asim Eli a [facility] [place] [facility], [address] [place] [address] [address] [place] [id number] 0 Phone: () - 06/19 CBC w/ auto diff BA % % 0.0 2.0 0.5 FINAL Asim Eli a [facility] - [place] [facility], [address] [place] [address] [address] [place] [id number] 0 Phone: () - 06/19 CBC w/ auto diff LY # K/uL 0.4 3.6 2.9 FINAL Asim Eli a [facility] - [place] [facility], [address] [place] [id number] 0 Phone: () - 06/19 CBC w/ auto diff MO # K/uL 0.2 1.3 0.6 FINAL Asim banerjee [facility] - [place] [facility], [address] [place] [id number] 0 Phone: () - 06/19 CBC w/ auto diff EO # K/uL 0.0 0.6 0.2 FINAL Asim banerjee [facility] - [place] [facility], [address] [place] [id number] 0 Phone: () - 06/19 CBC w/ auto diff BA # K/uL 0.0 0.2 0.0 FINAL Asim banerjee [facility] - [place] [facility], [address] [place] [id number] 0 Phone: () - 06/19 CBC w/ auto diff NRBC % #/100W BC 0.0 0.2 0.0 FINAL Asim banerjee [facility] - [place] [facility], [address] [place] [id number] 0 Phone: () - 06/19 CBC w/ auto diff RBC M/uL 3.9 5.1 4.67 FINAL Asim banerjee [facility] - [place] [facility], [address] [place] [id number] 0 Phone: () - 06/19 CBC w/ auto diff HCT % 35.0 48.0 41.7 FINAL Asim banerjee [facility] - [place] [facility], [address] [place] [id number] 0 Phone: () - 06/19 CBC w/ auto diff MCV fL 80.0 104.0 89.3 FINAL Asim banerjee [facility] - [place] [facility], [address] [place] [address] [address] [place] [id number] 0 Phone: () - 06/19 CBC w/ auto diff MCH pg 26.0 35.0 30.4 FINAL Asim banerjee [facility] - [place] [facility], [address] [place] [id number] 0 Phone: () - 06/19 CBC w/ auto diff MCHC g/dL 30.0 35.0 34.1 FINAL Asim banerjee [facility] - [place] [facility], [address] [place] [id number] 0 Phone: () - 06/19 CBC w/ auto diff MPV fL 9.5 13.4 8.8 Low FINAL Asim banerjee [facility] - [place] [facility], [address] [place] [id number] 0 Phone: () - 06/19 CBC w/ auto diff RDW % 11.4 16.1 13.10 FINAL Asim banerjee [facility] - [place] [facility], [address] [place] [address] 200 [place] [id number] 0 Phone: () - 06/19 Retic ulocy te count panel Retic ulocy te, absol [place] M/uL 0.02 0.08 0.08 FINAL Asim banerjee [facility] - [place] [facility], [address] [place] [id number] 0 Phone: () - 06/19 Retic ulocy te count panel Retic ulocy te count % 0.4 1.6 1.75 High FINAL Asim banerjee [facility] - [place] [facility], [address] [place] [address] 200 [place] [id number] 0 Phone: () - 06/19 Retic ulocy te count panel Immat ure retic ulocy te fract ion, % % 0.0 16.5 10.80 FINAL Asim banerjee [facility] - [place] [facility], [address] [place] [id number] 0 Phone: () - 06/19 Retic ulocy te count panel Retic ulocy te cellu lar hemog lobin pg 28.0 37.0 34.6 FINAL Asim banerjee [facility] [place] [facility], [address] [place] [address] 200 [place] [id number] 0 Phone: () - 06/19 CMP Album in g/dL 3.2 5.2 4.6 FINAL Asim banerjee Oncology [facility], [address] [facility] [id number] [phone] Phone: () - 06/19 CMP Alkal ine phosp hatas e U/L 46.0 116.0 91 FINAL Asimmatt Cornelius [facility], [address] [facility] [id number] 0 Phone: () - 06/19 CMP ALT/S GPT U/L 7.0 40.0 27 FINAL Asim Cornelius [facility], [address] [facility] [id number] 0 Phone: () - 06/19 CMP AST/S GOT U/L 13.0 40.0 34 FINAL [facility], [address] [facility] [id number] 0 Phone: () - 06/19 CMP BUN mg/dL 9.0 23.0 11 FINAL [facility], [address] [facility] [address] [place] [phone] 0 Phone: () - 06/19 CMP Calci um mg/dL 8.7 10.4 9.4 FINAL [facility], [address] [facility] [address] [facility] [id number] 0 Phone: () - 06/19 CMP Chlor ray mmol/L 96.0 114.0 107 FINAL [facility], [address] [facility] [address] [place] [phone] 0 Phone: () - 06/19 CMP CO2 [...] the 96 hour stability window. [facility] [address] [facility] [id number] 0 Phone: () - 06/19 CMP Creat inine mg/dL 0.5 1.2 0.68 FINAL [facility] [address] [facility] [phone] 0 Phone: () - 06/19 CMP GFR estim ate ml/min /1.73m ^2 103.9 GFR is calculate d using the CKD-EPI equation. FINAL Asim oCrnelius [facility], [address] [facility] [address] [facility] [phone] 0 Phone: () - 06/19 CMP Gluco se mg/dL 73.0 126.0 95 FINAL Asimmatt Cornelius [facility], [address] [facility] [facility] [id number] 0 Phone: () - 06/19 CMP Potas sium mmol/L 3.5 5.1 4.1 [facility], [address] [facility] [address] [facility] [id number] 0 Phone: () - 06/19 CMP Sodiu m mmol/L 136.0 145.0 140 FINAL Asim [facility], [address] [facility] [id number] 0 Phone: () - 06/19 CMP Bilir ubin, total mg/dL 0.3 1.2 0.2 Low [facility], [address] [facility] [address] [facility] [id number] 0 Phone: () - 06/19 CMP Total prote in g/dL 5.7 8.2 6.9 [facility] [address] [facility] 100 [facility] [phone] 0 Phone: () - 01/19 [facility] other lab See dietician d 05/01 Mis other lab See dietician d 05/06 CBC w/ auto diff WBC K/uL 3.0 8.9 8.4 FINAL Deepthi Clemens lavonne [facility], [address] [facility] [id number] 0 Phone: () - 05/06 CBC w/ auto diff HGB g/dL 11.3 15.2 13.6 FINAL Deepthi Clemens lavonne [facility] [place], [address] [place] [id number] 0 Phone: () - 05/06 CBC w/ auto diff PLT K/uL 113.0 364.0 266 FINAL Deepthi banerjee [facility] - [place] [facility], [address] [place] [id number] 0 Phone: () - 05/06 CBC w/ auto diff Dawna # (ANC) K/uL 1.6 6.6 3.9 FINAL Deepthi banerjee [facility] - [place] [facility], [address] [place] [id number] 0 Phone: () - 05/06 CBC w/ auto diff Dawna % % 43.0 74.0 46.7 FINAL Deepthi banerjee [facility] - [place] [facility], [address] 200 [place] [id number] 0 Phone: () - 05/06 CBC w/ auto diff IG % % 0.0 0.5 0.5 FINAL Deepthi banerjee [facility] - [place] [facility], [address] 200 [place] [id number] 0 Phone: () - 05/06 CBC w/ auto diff IG # K/uL 0.0 0.03 0.04 High FINAL Deepthi banerjee [facility] - [place], [address] [place] [id number] 0 Phone: () - 05/06 CBC w/ auto diff LY % % 14.0 41.0 44.8 High FINAL Deepthi banerjee [facility] - [place], [address] [place] [id number] 0 Phone: () - 05/06 CBC w/ auto diff MO % % 6.0 15.0 6.2 FINAL Deepthi banerjee [facility] - [place] [facility], [address] [place] [id number] 0 Phone: () - 05/06 CBC w/ auto diff EO % % 0.0 7.0 1.4 FINAL Deepthi banerjee [facility] - [place] [facility], [address] [place] [phone] 0 Phone: () - 05/06 CBC w/ auto diff BA % % 0.0 2.0 0.4 FINAL Deepthi banerjee [facility] - [place] [facility], [address] [place] [address] 200 [place] [id number] 0 Phone: () - 05/06 CBC w/ auto diff LY # K/uL 0.4 3.6 3.8 High FINAL Deepthi banerjee [facility] - [place] [facility], [address] [place] [address] 200 [place] [id number] 0 Phone: () - 05/06 CBC w/ auto diff MO # K/uL 0.2 1.3 0.5 FINAL Deepthi banerjee [facility] - [place] [facility], [address] [place] [address] 200 [place] [id number] 0 Phone: () - 05/06 CBC w/ auto diff EO # K/uL 0.0 0.6 0.1 FINAL Deepthi banerjee [facility] - [place] [facility], [address] [place] [address] 200 [place] [id number] 0 Phone: () - 05/06 CBC w/ auto diff BA # K/uL 0.0 0.2 0.0 FINAL Deepthi banerjee [facility] - [place] [facility], [address] [place] [address] 200 [place] [id number] 0 Phone: () - 05/06 CBC w/ auto diff NRBC % #/100W BC 0.0 0.2 0.0 FINAL Deepthi banerjee [facility] - [place] [facility], [address] [place] [address] 200 [place] [phone] 0 Phone: () - 05/06 CBC w/ auto diff RBC M/uL 3.9 5.1 4.57 FINAL Deepthi banerjee [facility] - [place] [facility], [address] [place] [address] 200 [place] [id number] 0 Phone: () - 05/06 CBC w/ auto diff HCT % 35.0 48.0 40.7 FINAL Deepthi banerjee [facility] [place], [address] [place] [address] 200 [place] [id number] 0 Phone: () - 05/06 CBC w/ auto diff MCV fL 80.0 104.0 89.1 FINAL Deepthi banerjee [facility] - [place] [facility], [address] [place] [address] 200 [place] [id number] 0 Phone: () - 05/06 CBC w/ auto diff MCH pg 26.0 35.0 29.8 FINAL Deepthi banerjee [facility] - [place] [facility], [address] [place] [address] 200 [place] [id number] 0 Phone: () - 05/06 CBC w/ auto diff MCHC g/dL 30.0 35.0 33.4 FINAL Deepthi banerjee [facility] - [place] [facility], [address] [place] [address] 200 [place] [id number] 0 Phone: () - 05/06 CBC w/ auto diff MPV fL 9.5 13.4 9.3 Low FINAL Deepthi Clemens lavonne [facility] - [place] [facility], [address] [place] [address] 200 [place] [phone] 0 Phone: () - 05/06 CBC w/ auto diff RDW % 11.4 16.1 13.60 FINAL Deepthi Clemens lavonne [facility] - [place] [facility], [address] [place] [address] 200 [place] [phone] 0 Phone: () - 05/06 Retic ulocy te count panel Retic ulocy te, absol [place] M/uL 0.02 0.08 0.07 FINAL Deepthi Clemens lavonne [facility] - [place] [facility], [address] [place] [address] 200 [place] [phone] 0 Phone: () - 05/06 Retic ulocy te count panel Retic ulocy te count % 0.4 1.6 1.60 FINAL Deepthi Clemens lavonne [facility] - [place] [facility], [address] [place] [address] 200 [place] [phone] 0 Phone: () - 05/06 Retic ulocy te count panel Immat ure retic ulocy te fract ion, % % 0.0 16.5 9.70 FINAL Deepthi Clemens lavonne [facility] [place] [facility], [address] [place] [address] 200 [place] [phone] 0 Phone: () - 05/06 Retic ulocy te count panel Retic ulocy te cellu lar hemog lobin pg 28.0 37.0 33.0 FINAL Deepthi banerjee [facility], [address] [place] [address] 200 [facility] [phone] 0 Phone: () - 05/06 CMP Album in g/dL 3.2 5.2 4.7 [place]AL [place] [address] [phone] 0 Phone: () - 05/06 CMP Alkal ine phosp hatas e U/L 46.0 116.0 73 FINAL [place] [address] [phone] 0 Phone: () - 05/06 CMP ALT/S GPT U/L 7.0 40.0 19 FINAL [place] [address] [phone] 0 Phone: () - 05/06 CMP AST/S GOT U/L 13.0 40.0 21 FINAL [place] [address] [phone] 0 Phone: () - 05/06 CMP BUN mg/dL 9.0 23.0 16.0 FINAL [place] [address] [phone] 0 Phone: () - 05/06 CMP Calci um mg/dL 8.7 10.4 9.8 FINAL Deepthi Dodge [place] [address] [phone] 0 Phone: () - 05/06 CMP Chlor ray mmol/L 96.0 114.0 107 FINAL [place] [address] [phone] 0 Phone: () - 05/06 CMP CO2 [...] 96 hour stability window. FINAL Deepthi banerjee [place] [address] [id number] 0 Phone: () - 05/06 CMP Creat inine mg/dL 0.5 1.2 0.80 FINAL Deepthi banerjee [place] [address] [phone] 0 Phone: () - 05/06 CMP GFR estim ate ml/min /1.73m ^2 90.1 GFR is calculate d using the CKD-EPI equation. FINAL Deepthi Clemens lavonne [place] [address] [phone] 0 Phone: () - 05/06 CMP Gluco se mg/dL 73.0 126.0 128 High FINAL Deepthi Clemens lavonne [place] [address] [phone] 0 Phone: () - 05/06 CMP Potas sium mmol/L 3.5 5.1 3.9 FINAL Deepthi Clemens lavonne [place] [address] [phone] 0 Phone: () - 05/06 CMP Sodiu m mmol/L 136.0 145.0 142 FINAL [place] [address] [phone] 0 Phone: () - 05/06 CMP Bilir ubin, total mg/dL 0.3 1.2 0.2 Low FINAL [place] [address] [phone] 0 Phone: () - 05/06 CMP Total prote in g/dL 5.7 8.2 7.1 FINAL [place] [address] [facility] 100 [facility] [phone] 0 Phone: () - 05/06 LDH panel LDH U/L 120.0 246.0 191 FINAL Deepthi Eli a [facility] - [place], [address] [facility] [address] [facility] [phone] 0 Phone: () - Medications Date Name [...] Acti ve Vital Signs Date Type Value 06/19/2021 BMI 32.56 06/19/2021 Height 62.00 06/19/2021 Weight 178.00 06/19/2021 Pain Scale 0.00 06/19/2021 BSA 1.82 06/19/2021 Oxygen Saturation 98.00 06/19/2021 Respiratory Rate 16.00 06/19/2021 Heart Beat 96.00 06/19/2021 Body Temperature 98.20 06/19/2021 Intravascular Systolic 168 06/19/2021 Intravascular Diastolic 102 05/06/2023 BSA 1.79 05/06/2023 BMI 31.51 05/06/2023 Height 62.00 05/06/2023 Weight 172.30 05/06/2023 Pain Scale 6.00 05/06/2023 Intravascular Systolic 148 05/06/2023 Intravascular Diastolic 88 05/06/2023 Oxygen Saturation 98.00 05/06/2023 Respiratory Rate 16.00 05/06/2023 Body Temperature 98.50 05/06/2023 Heart Beat 87.00
--- OUTSIDE RECORDS SUMMARY | 2025-02-07 17:08 | XMS_ITS | Clinical Summary ---
Author Organization [facility] Address Pending sale to [facility] [place] [address] Care Team Providers Care Electric Knife Operator Name Role Phone Wilfredo Ellis MD Primary Care Provider [phone] Allergies Active Allergy Reactions Criticality Noted Date Comments Escitalopram Seizures 04/25/2008 Medications acetaminophen (TYLENOL EXTRA STRGTH) 500 mg tablet Take 1,000 mg by mouth every 6 hours if needed. Max acetaminophen dose: 4000mg in 24 hrs. Active lisinopril (PRINIVIL; ZESTRIL) 20 mg tabletIndicatio ns:Hypertension Take 1 tablet by mouth once daily. 30 tablet 9 Active albuterol HFA 90 mcg/actuation inhalerIndicati ons:Acute bronchitis, unspecified organism Inhale 2 Puffs by mouth every 4 hours if needed. 1 Inhaler 9 Active Active Problems Problem Noted Date Diagnosed Date Compression fracture of T4 vertebra and L1 10/25 Cancer treatment induced bone loss 09/27/2019 Hyponatremia 07/13/2019 Hyperglycemia 07/13/2019 Cholestatic hepatitis 06/13/2019 Sinus tachycardia 06/03/2019 Acute deep vein thrombosis ( DVT) of axillary vein of right upper extremity 05/30/2019 Depression 05/30/2019 Pancytopenia due to chemotherapy 05/23/2019 Acute embolism and thrombosi s of right internal jugular vein 05/23/2019 Tobacco use disorder 05/23/2019 Neutropenia 05/04/2019 Chest pain 04/08/2019 TLL (T-cell lymphoblastic lymphoma) 04/05/2019 Pleural effusion 04/05/2019 Neck pain 10/27/2018 Chronic low back pain 11/02/2017 Migraine headache 11/02/2017 Fibromyalgia 08/21/2017 Restless leg syndrome 03/09/2017 Gastroesophageal reflux disease without esophagi tis 09/02/2016 Overview (04/05/2019): per external records Admission for chemotherapy Resolved Problems Problem Noted Date Diagnosed Date Resolved Date Tobacco use 04/05/2019 11/17/2019 Immunizations Immunization Administration Dates Next Due Td (Age >=7 Years) 05/07/2002 Family History Medical History Relation Name Comments Good Health Brother Depression Father suicide at age 37 Alzheimer's disease Mother COPD Mother Cancer No Family History Relation Name Status Comments Brother Alive Father Maternal Aunt barretts Mother Alive Social History Tobacco Use Types Packs/Day Years Used Date Smoking Tobacco: Every Day Cigarettes Smokeless Tobacco: Never Tobacco Cessation:Ready to Q uit: Not Asked; Counseling Given: Not Answered Comments:TIP done 04/11/19, 06/30/19 Alcohol Use Standard Drinks/Week Comments Not Currently 0 (1 standard drink = 0.6 oz pur e alcohol) Comments No Sex and Gender Information Value Date Recorded Sex Assigned at Not on file Legal Sex Female 6:48 AM HOSIERY LOOPER Gender Identity Not on file Sexual Orientation Not on file Obstetrics History Last Filed Vital Signs Vital Sign Reading Time Taken Comments Blood Pressure 136/78 05/11/2023 1:53 PM CDT Pulse 95 05/11/2023 1:53 PM CDT Temperature 37.3 C (99.2 F) 01/19/2023 11:49 AM HOSIERY LOOPER Respiratory Rate 22 01/19/2023 11:49 AM HOSIERY LOOPER Oxygen Saturation 95% 05/11/2023 1:53 PM CDT Inhaled Oxygen Concentration - - Weight 80.7 kg (178 lb) 05/11/2023 1:53 PM CDT Height 157.5 cm (5' 2) 05/11/2023 1:53 PM CDT Body Mass Index 32.56 05/11/2023 1:53 PM CDT Plan of Treatment Health Maintenance Due Date Last Done Comments COVID-19 vaccine series (#1) 1979 Tdap 1985 Depression screening for age 12+ 1986 Hepatitis C screening for age 18-79 02/08/1992 Pneumococcal series for age 50+ (1 of 2 - PCV) 993 Zoster (shingles) series for age 50+ (1 of 2) 02/07/19 93 Pap test for age 21-65 1995 Tetanus booster 05/07/2012 05/07/2002 Colonoscopy through age 75 2019 Lipids for age 45-75 2019 Mammogram for age 45-75 2019 01/15/2015 BMI (ht and wt on same day) for age 18+ 05/11/2024 0 05/11/2023 Influenza Vaccine (#1) 2024 HIV for age 15-65 Completed 05/03/2019 Procedures Procedure Name Priority Date/Time Associated Diagnosis Comments ANTI HIV 1/2 BARRON 05/03/2019 4:26 AM CDT XR MAMMO BILAT SCREEN FFDM (IA) Routine 01/15/2015 11:43 AM HOSIERY LOOPER Other screening mammogram from Last 3 Months or Most Recently Relevant to Health Maintenance Results * ANTI HIV 1/2 (05/03/2019 4:26 AM CDT) HIV-1/HIV-2 ANTIBODY Non-Reacti ve Non-Reacti ve 05/03/2019 7:15 PM CDT [facility] [employer] [facility] Comment:HIV-1 p24 and HIV-1/ HIV-2 Ab not detected. Blood BLOOD SPECIMEN / Unknown Non-Lab Venipuncture / Unknown 05/03/2019 4:26 AM CDT 05/03/2019 4:32 AM CDT us Lili Christopher MD SEND OUTS Final Result [facility] [address] [place] [address], [place] * XR MAMMO BILAT SCREEN FFDM (01/15/2015 11:43 AM HOSIERY LOOPER) Anatomical Region Laterality Modality BREASTS, Breast Left, Breast Right Bilateral Mammography Impressions 01/15/2015 3:29 PM HOSIERY LOOPER There is no radiographic evidence for malignancy. Recommend annual mammograms. A lay language report of this examination will be provided to the patient. MAMMOGRAM ASSESSMENT: ACR 1 Negative Narrative 01/15/2015 3:29 PM HOSIERY LOOPER XR MAMMO BILAT SCREEN FFDM [G0202.0] CLINICAL HISTORY: This is an asymptomatic 39 y.o. patient. INDICATION FOR EXAM: Mammogram Screening. TECHNIQUE: CC & MLO views were obtained. This digital study was evaluated with the assistance of Computer-Aided Detection. COMPARISON FILM: This is a baseline study. FINDINGS: Mammographically, the breast tissue has scattered fibroglandular densities. There are no dominant masses, suspicious micro calcifications or areas of architectural distortion. Procedure Note Victor M Thompson MD - 01/15/2015 XR MAMMO BILAT SCREEN FFDM [G0202.0] CLINICAL HISTORY: This is an asymptomatic 39 y.o. patient. INDICATION FOR EXAM: Mammogram Screening. TECHNIQUE: CC & MLO views were obtained. This digital study was evaluatedwith the assistance of Computer-Aided Detection. COMPARISON FILM: This is a baseline study. FINDINGS: Mammographically, the breast tissue has scatteredfibroglandular densities. There are no dominant masses, suspicious microcalcifications or areas of architectural distortion. IMPRESSION: There is no radiographic evidence for malignancy. Recommendannual mammograms. A lay language report of this examination will be provided to the patient. MAMMOGRAM ASSESSMENT: ACR 1 Negative Wilfredo Ellis MD MAMMO Final Result from Last 3 Months or Most Recently Relevant to Health Maintenance Insurance [facility] Advance Directives * Full Code (Latest Code Status on File) Date Activated Date Inactivated Comments 11/17/2019 2:37 PM 11/19/2019 11:03 AM * Full Code Date Activated Date Inactivated Comments 10/25/2019 11:54 AM 10/28/2019 2:30 PM * Full Code Date Activated Date Inactivated Comments 09/26/2019 9:08 AM 09/29/2019 9:20 AM * Full Code Date Activated Date Inactivated Comments 08/26/2019 10:10 AM 08/27/2019 7:43 PM Question Answer Comments Code Status Discussion: Discussed * Full Code Date Activated Date Inactivated Comments 07/13/2019 12:26 PM 07/19/2019 2:38 PM Care Teams Electric Knife Operator Relationship Specialty Start Date End Date Wilfredo Ellis MD PCP - General 04/25/08
[2025-02-07 17:13] VITALS: BP 171/110; PULSE 100; RESP 18; TEMP 36.5; O2SAT 98; BMI 30.5
--- NOTE | 2025-02-07 17:31 | ED.GENADULT ---
HPI - General Adult General Date Seen: 02/07/25 Chief complaint: Unspecified Complaint, Adult Stated complaint: feels like BP high Time Seen by Provider: 02/07/25 17:19 History of Present Illness HPI narrative: Patient is a 50-year-old woman who says that over the past few days she started to worry that her blood pressure might be high. She says she has been feeling like her head has a lot of pressure and her body feels tingly. She does have a history of hypertension. She was previously maintained on lisinopril and Lasix, but says she has not taken them for least a couple of months. She says that her doctor retired from [employer], and she really liked him and just has not gotten around to making an appointment with a new doctor. She has not had any severe headache, chest pain or other significant complaints. She does smoke. She has a prior cancer diagnosis not otherwise specified, which she says is remote. Related Data Home Medications ?Medication ?Instructions ?Recorded ?Confirmed albuterol sulfate 90 mcg/actuation inhalation 05/04/23 aerosol inhaler (Ventolin HFA) furosemide 20 mg tablet 20 mg PO BID 05/04/23 05/04/23 lisinopril 10 mg tablet 10 mg PO DAILY 05/04/23 05/04/23 potassium chloride 10 mEq 10 meq PO DAILY 05/04/23 05/04/23 tablet,extended release Previous Rx's ?Medication ?Instructions ?Recorded benzonatate 100 mg capsule 100 mg PO BID-TID PRN cough #14 03/06/23 caps furosemide 20 mg tablet 20 mg PO BID #60 tabs 02/07/25 lisinopril 10 mg tablet 10 mg PO DAILY #30 tabs 02/07/25 Allergies Allergy/AdvReac Type Severity Reaction Status Date / Time escitalopram (From Lexapro) Allergy Severe Seizure Verified 05/04/23 01:45 Review of Systems Status of ROS: Reports: 6 or more systems reviewed and unremarkable except as noted in History and below [facility] Medical History GERD (gastroesophageal reflux disease) ?K21.9 - Gastro-esophageal reflux disease without esophagitis (ICD-10) RLS (restless legs syndrome) ?G25.81 - Restless legs syndrome (ICD-10) Fibromyalgia ?M79.7 - Fibromyalgia (ICD-10) Migraine ?G43.909 - Migraine, unspecified, not intractable, without status migrainosus (ICD-10) Chronic low back pain ?M54.50 - Low back pain, unspecified (ICD-10) ?G89.29 - Other chronic pain (ICD-10) Pleural effusion ?J90 - Pleural effusion, not elsewhere classified (ICD-10) TLL (T-cell lymphoblastic lymphoma) ?C83.50 - Lymphoblastic (diffuse) lymphoma, unspecified site (ICD-10) Acute embolism and thrombosis of right internal jugular vein ?I82.C11 - Acute embolism and thrombosis of right internal jugular vein (ICD-10) Depression ?F32.A - Depression, unspecified (ICD-10) Acute deep vein thrombosis (DVT) of axillary vein of right upper extremity ?I82.A11 - Acute embolism and thrombosis of right axillary vein (ICD-10) Hyperglycemia ?R73.9 - Hyperglycemia, unspecified (ICD-10) Hyponatremia ?E87.1 - Hypo-osmolality and hyponatremia (ICD-10) Compression fracture of T4 vertebra ?S22.040A - Wedge compression fracture of fourth thoracic vertebra, initial encounter for closed fracture (ICD-10) Tubal without intrauterine ?O00.109 - Unspecified tubal without intrauterine (ICD-10) Heartburn ?R12 - Heartburn (ICD-10) Barretts esophagus ?K22.70 - Berumen's esophagus without dysplasia (ICD-10) Anxiety ?F41.9 - Anxiety disorder, unspecified (ICD-10) Surgical History History of partial hysterectomy ?Z90.711 - Acquired absence of uterus with remaining cervical stump (ICD-10) History of Bharat fundoplication ?Z98.890 - Other specified postprocedural states (ICD-10) History of cholecystectomy ?Z90.49 - Acquired absence of other specified parts of digestive tract (ICD-10) Social History Smoking Status: Current every day smoker What tobacco products do you use: cigarettes Do you use any of these nicotine containing products: None Second hand tobacco smoke exposure: No How often do you have a drink containing alcohol: never AUDIT-C Alcohol total score: 0 Non-prescribed substance use: denies use service: No Exam Narrative: Exam Narrative: Vital signs reviewed In general, alert, nontoxic woman. She looks comfortable. Head: Normocephalic, atraumatic. Eyes: Sclera clear. Pupils equal and reactive. Extraocular movements are full. ENT: Mucous membranes moist. Neck: Supple without adenopathy. Heart: Regular rate and rhythm without murmur. Lungs: Clear. No increased work of breathing, crackles or wheezes. Abdomen: Soft, nontender to palpation. Extremities: Well perfused, pulses intact. No significant edema. Neurologic: Alert, conversant. Speech fluent, face symmetric. Moves all extremities equally. Skin: Warm, dry well perfused. Affect: Normal. Const: Vital Signs, click to edit/add: Vital Signs - 24 hr 02/07/25 17:13 Temperature 97.7 F Pulse Rate [Pulse Oximeter] 100 Respiratory Rate 18 Blood Pressure [Ri ght Upper Arm] 171/110 H Pulse Oximetry 98 Oxygen Delivery Me thod Room Air Course Course ED Course: At a long chat with her. Stressed the importance of blood pressure control in general. She is willing to go back on her blood pressure medicines, 12 was happy to prescribe those for her today, but that she will need to reestablish with a clinic doctor for her ongoing needs. I am going to check electrolytes and kidney function here given that she has been off medications for quite a while now. I do not think she needs additional workup. She does not have symptoms to suggest acute coronary syndrome, intracranial hemorrhage, dissection, or other acute complications of hypertension. Metabolic panel is normal aside from a nonfasting glucose of 162. Creatinine is 0.6, potassium is 3.8. I have prescribed lisinopril and Lasix at her previous doses of 10 mg and 20 mg b.i.d. respectively. I have given her phone numbers for our clinic as well as [facility] and stressed that she needs to follow-up in the next couple of weeks to see how she is responding to her medicines, potassium may need to be rechecked as well. Return any time for acute new or worsening symptoms. Vital Signs Vital signs: Initial Vital Signs Temperature 97.7 F 02/07/25 17:13 Temperature Source Temporal Artery Scan 02/07/25 17:13 Pulse Rate 100 02/07/25 17:13 Respiratory Rate 18 02/07/25 17:13 Blood Pressure 171/110 H 02/07/25 17:13 Blood Pressure Mean 130 H 02/07/25 17:13 Pulse Oximetry 98 02/07/25 17:13 Oxygen Delivery Method Room Air 02/07/25 17:13 Vital Signs Temperature 97.7 F 02/07/25 17:13 Pulse Rate 100 02/07/25 17:13 Respiratory Rate 18 02/07/25 17:13 Blood Pressure 171/110 H 02/07/25 17:13 Pulse Oximetry 98 02/07/25 17:13 Oxygen Delivery Method Room Air 02/07/25 17:13 Temperature 97.7 F 02/07/25 17:13 Pulse Rate 100 02/07/25 17:13 Respiratory Rate 18 02/07/25 17:13 Blood Pressure 171/110 H 02/07/25 17:13 Pulse Oximetry 98 02/07/25 17:13 Oxygen Delivery Method Room Air 02/07/25 17:13 Medical Decision Making Lab Data Labs: Lab Results 02/07/25 Range/Units 17:47 Sodium 135 (135-149) mmol/L Potassium 3.8 (3.6-5.1) mmol/L Chloride 102 (96-114) mmol/L Carbon Dioxide 22 (20-32) mmol/L Anion Gap 11 (7-15) mEq/L BUN 15 (7-30) mg/dL Creatinine 0.6 (0.5-1.5) mg/dL Estimated Creat Clear 87.73 Estimated GFR 109 ml/min Glucose 162 H (60-115) mg/dL Calcium 9.3 (8.4-10.6) mg/dL Discharge Plan Discharge Clinical Impression: High blood pressure Patient Disposition: Home, Self-Care Condition: Stable Instructions: Chronic Hypertension (ED) Additional Instructions: I have prescribed her lisinopril and Lasix, 2 blood pressure medicines. It is important that you arrange for primary care follow-up to see how you are doing on your medicines and if any adjustments need to be made. Your potassium may not need to be rechecked as well. It is normal today as is your kidney function. You can call our clinic,[phone] or the [facility] [phone] to arrange primary care follow-up. Prescriptions: New lisinopril 10 mg tablet 10 mg PO DAILY Qty: 30 2RF furosemide 20 mg tablet 20 mg PO BID Qty: 60 2RF No Action benzonatate 100 mg capsule 100 mg PO BID-TID PRN (Reason: cough) Qty: 14 0RF potassium chloride 10 mEq tablet extended release 10 meq PO DAILY lisinopril 10 mg tablet 10 mg PO DAILY furosemide 20 mg tablet 20 mg PO BID albuterol sulfate [Ventolin HFA] 90 mcg/actuation HFA aerosol inhaler inhalation Follow Up/Referrals: Wilfredo Ellis MD [Referring] - Stand Alone Forms: [facility] Info Instructions
--- OUTSIDE RECORDS SUMMARY | 2025-02-07 17:49 | XMS_ITS ---
Author Name Interface, [id number] lity Address [address] [address] Organization [facility] Address [address] [place] [address] Care Team Providers Care Groover Runner Name Role Phone Asim Cornelius Unavailable Unavailable [...] CASE REPORTSpe cial Hematolog y Report Case: [id number] 6Authoriz ing Provider: Asim Cornelius MD Collected :05/01/20 20 1447Order ing Location: [facility] Received: 0 1212Patho logist: Seamus [...] iagnosed by left neck lymph node biopsy ([id number] , 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 Staging bonemarro w biopsy [...] specimens .ADDITION AL INFORMATI ONInterpr eted at [facility] - [address], [facility] [place], [place] [address]Jxkz Performed by:[facility] - [facility], [place] [address]Bbpc e : FINAL Asim Ashli 05/01 Retic ulocy te count panel Retic ulocy te, absol [place] M/uL 0.02 0.08 0.08 FINAL Asim Clemens a Oncology - [facility] lis, [address] [place] [address] [address] [place] [id number] 0 Phone: () - 05/01 Retic ulocy te count panel Retic ulocy te count % 0.4 1.6 2.07 High FINAL Asim Clemensot a [facility], [address] [facility] [address] [place] [id number] 0 Phone: () - 05/01 Retic ulocy te count panel Immat ure retic ulocy te fract ion, % % 0.0 16.5 10.10 FINAL Asim banerjee Oncology - [place] [facility], [address] [place] [id number] 0 Phone: () - 05/01 Retic ulocy te count panel Retic ulocy te cellu lar hemog lobin pg 28.0 37.0 36.5 FINAL Asim banerjee Oncology - [place] [facility], [address] [place] [address] [address] [place] [id number] 0 Phone: () - 05/01 Smear revie w panel CBC Smear revie w comme nts Large and-or giant platele ts present Atypica l (Reacti ve and/or Variant ) Lymphs present Abnor mal FINAL Asim banerjee Oncology - [place] [facility], [address] [place] [id number] 0 Phone: () - 05/01 CBC w/ auto diff PLT K/uL 113.0 364.0 257 FINAL Asim banerjee Oncology - [place] [facility], [address] [place] [id number] 0 Phone: () - 05/01 CBC w/ auto diff Dawna # (ANC) K/uL 1.6 6.6 2.2 FINAL Asim banerjee Oncology - [place] [facility], [address] [place] [id number] 0 Phone: () - 05/01 CBC w/ auto diff Dawna % % 43.0 74.0 46.0 FINAL Asim banerjee Oncology - [place] [facility], [address] [place] [address] [address] [place] [id number] 0 Phone: () - 05/01 CBC w/ auto diff IG % % 0.0 0.5 0.4 FINAL Asim banerjee Oncology - [place] [facility], [address] [place] [address] [address] [place] [id number] 0 Phone: () - 05/01 CBC w/ auto diff IG # K/uL 0.0 0.03 0.02 FINAL Asim banerjee Oncology - [place] [facility], [address] [place] [address] [address] [place] [id number] 0 Phone: () - 05/01 CBC w/ auto diff LY % % 14.0 41.0 38.7 FINAL Asim Clemensot a Oncology - [place] lis, [address] [place] [address] [address] [place] [id number] 0 Phone: () - 05/01 CBC w/ auto diff MO % % 6.0 15.0 10.0 FINAL Asimmatt Clemensot a Oncology - [place] lis, [address] [place] [address] [address] [place] [id number] 0 Phone: () - 05/01 CBC w/ auto diff EO % % 0.0 7.0 4.3 FINAL Asimmatt Clemensot a Oncology - [place] lis, [address] [place] [id number] 0 Phone: () - 05/01 CBC w/ auto diff BA % % 0.0 2.0 0.6 FINAL Asim Clemensot a Oncology - [place] lis, [address] 200 [facility] [place] [id number] 0 Phone: () - 05/01 CBC w/ auto diff LY # K/uL 0.4 3.6 1.9 FINAL Asimmatt Clemensot a Oncology - [place] lis, [address] [place] [id number] 0 Phone: () - 05/01 CBC w/ auto diff MO # K/uL 0.2 1.3 0.5 FINAL Asim Clemensot a Oncology - [place] lis, [address] [place] [address] 200 [place] [id number] 0 Phone: () - 05/01 CBC w/ auto diff EO # K/uL 0.0 0.6 0.2 FINAL Asimmatt Clemensot a Oncology - [place] lis, [address] [place] [id number] 0 Phone: () - 05/01 CBC w/ auto diff BA # K/uL 0.0 0.2 0.0 FINAL Asimmatt Clemensot a Oncology - [place] lis, [address] [place] [address] [address] [place] [id number] 0 Phone: () - 05/01 CBC w/ auto diff NRBC % #/100W BC 0.0 0.2 0.0 FINAL Asim banerjee Oncology - [place] lis, [address] [place] [address] [address] [place] [id number] 0 Phone: () - 05/01 CBC w/ auto diff RBC M/uL 3.9 5.1 4.01 FINAL Asim banerjee Oncology - [place] lis, [address] [place] [address] [address] [place] [id number] 0 Phone: () - 05/01 CBC w/ auto diff HCT % 35.0 48.0 36.8 FINAL Asim banerjee Oncology - [place] lis, [address] [place] [address] [address] [place] [id number] 0 Phone: () - 05/01 CBC w/ auto diff MCV fL 80.0 104.0 91.8 FINAL Asim banerjee Oncology - [place] lis, [address] [place] [address] [address] [place] [id number] 0 Phone: () - 05/01 CBC w/ auto diff MCH pg 26.0 35.0 31.2 FINAL Asim banerjee Oncology - [place] lis, [address] [place] [address] [address] [place] [id number] 0 Phone: () - 05/01 CBC w/ auto diff MCHC g/dL 30.0 35.0 34.0 FINAL Asim banerjee Oncology - [place] lis, [address] [place] [address] [address] [place] [id number] 0 Phone: () - 05/01 CBC w/ auto diff MPV fL 9.5 13.4 9.1 Low FINAL Asim banerjee Oncology - [place] lis, [address] [place] [address] [address] [place] [id number] 0 Phone: () - 05/01 CBC w/ auto diff RDW % 11.4 16.1 13.90 FINAL Asim banerjee Oncology - [place] lis, [address] [place] [address] [address] [place] [id number] 0 Phone: () - 05/01 CBC w/ auto diff Auto CBC comme nts Slide review to follow FINAL Asim banerjee Oncology - [place] lis, [address] [place] [address] [address] [place] [id number] 0 Phone: () - 05/01 CBC w/ auto diff WBC K/uL 3.0 8.9 4.[address] [facility], [address] 200 [place] [id number] 0 Phone: () - 05/01 CBC w/ auto diff HGB g/dL 11.3 15.2 12.[address] [facility], [address] [place] [id number] 0 Phone: () - 05/01 CMP Album in g/dL 3.2 5.2 4.4 FINAL Asim banerjee [address] [id number] 0 Phone: () - 05/01 CMP Alkal ine phosp hatas e U/L 46.0 116.0 76 FINAL Asimmatt Clemens lavonne [address] [id number] 0 Phone: () - 05/01 CMP ALT/S GPT U/L 7.0 40.0 12 FINAL Asimmatt Clemens[address] [place] [id number] 0 Phone: () - 05/01 CMP AST/S GOT U/L 13.0 40.0 16 FINAL Asimmatt Clemens lavonne [address] [id number] 0 Phone: () - 05/01 CMP BUN mg/dL 9.0 23.0 19 FINAL Asimmatt Clemens lav[place] [address] [place] [id number] 0 Phone: () - 05/01 CMP Calci um mg/dL 8.7 10.4 9.4 FINAL Asimmatt banerjee [address] [place] [id number] 0 Phone: () - 05/01 CMP Chlor ray mmol/L 96.0 114.0 107 FINAL Asimmatt Clemens[address] [id number] 0 Phone: () - 05/01 CMP CO2 mmol/L 20.0 31.0 [address] [id number] 0 Phone: () - 05/01 CMP Creat inine mg/dL 0.5 1.2 0.[address] [id number] 0 Phone: () - 05/01 CMP GFR estim ate ml/min /1.73m ^2 97.0 GFR is calculate d using the CKD-EPI equation. FINAL [address] [id number] 0 Phone: () - 05/01 CMP Gluco se mg/dL 73.0 126.0 150 High FINAL [address] [id number] 0 Phone: () - 05/01 CMP Potas sium mmol/L 3.5 5.[address] [place] [id number] 0 Phone: () - 05/01 CMP Sodiu m mmol/L 136.0 145.[address] [id number] 0 Phone: () - 05/01 CMP Bilir ubin, total mg/dL 0.3 1.2 0.2 Low FINAL [address] [place] [id number] 0 Phone: () - 05/01 CMP Total prote in g/dL 5.7 8.[address] [place] [id number] 0 Phone: () - 06/19 Retic ulocy te count panel Retic ulocy te, absol [place] M/uL 0.02 0.08 0.08 FINAL [facility] lis, [address] [place] [id number] 0 Phone: () - 06/19 Retic ulocy te count panel Retic ulocy te count % 0.4 1.6 1.75 High FINAL Asim banerjee Oncology - [place] [facility], [address] [place] [id number] 0 Phone: () - 06/19 Retic ulocy te count panel Immat ure retic ulocy te fract ion, % % 0.0 16.5 10.80 FINAL Asim banerjee Oncology - [place] lis, [address] [place] [address] 200 [place] [id number] 0 Phone: () - 06/19 Retic ulocy te count panel Retic ulocy te cellu lar hemog lobin pg 28.0 37.0 34.6 FINAL Asim banerjee Oncology - [place] lis, [address] 200 [place] [id number] 0 Phone: () - 06/19 CBC w/ auto diff WBC K/uL 3.0 8.9 8.7 FINAL Asim banerjee Oncology - [place] lis, [address] [place] [id number] 0 Phone: () - 06/19 CBC w/ auto diff HGB g/dL 11.3 15.2 14.2 FINAL Asim banerjee Oncology - [place] lis, [address] [place] [id number] 0 Phone: () - 06/19 CBC w/ auto diff PLT K/uL 113.0 364.0 282 FINAL Asim banerjee Oncology - [place] [facility], [address] [place] [id number] 0 Phone: () - 06/19 CBC w/ auto diff Dawna # (ANC) K/uL 1.6 6.6 4.9 FINAL Asim banerjee Oncology - [place] [facility], [address] [place] [id number] 0 Phone: () - 06/19 CBC w/ auto diff Dawna % % 43.0 74.0 56.8 FINAL Asim banerjee Oncology - [place] [facility], [address] [place] [id number] 0 Phone: () - 06/19 CBC w/ auto diff IG % % 0.0 0.5 0.5 FINAL Asim banerjee Oncology - [place] lis, [address] [place] [id number] 0 Phone: () - 06/19 CBC w/ auto diff IG # K/uL 0.0 0.03 0.04 High FINAL Asim banerjee Oncology - [place] lis, [address] [place] [address] 200 [place] [id number] 0 Phone: () - 06/19 CBC w/ auto diff LY % % 14.0 41.0 33.4 FINAL Asim banerjee Oncology - [place] lis, [address] [place] [id number] 0 Phone: () - 06/19 CBC w/ auto diff MO % % 6.0 15.0 7.0 FINAL Asim banerjee Oncology - [place] lis, [address] [facility] [place] [id number] 0 Phone: () - 06/19 CBC w/ auto diff EO % % 0.0 7.0 1.8 FINAL Asim banerjee Oncology - [place] [facility], [address] [place] [id number] 0 Phone: () - 06/19 CBC w/ auto diff BA % % 0.0 2.0 0.5 FINAL Asim Eli a Oncology - [place] [facility], [address] [place] [id number] 0 Phone: () - 06/19 CBC w/ auto diff LY # K/uL 0.4 3.6 2.9 FINAL Asimmatt Eli a Oncology - [place] [facility], [facility] [address] [place] [id number] 0 Phone: () - 06/19 CBC w/ auto diff MO # K/uL 0.2 1.3 0.6 FINAL Asim Eli a Oncology - [place] lis, [address] [place] [id number] 0 Phone: () - 06/19 CBC w/ auto diff EO # K/uL 0.0 0.6 0.2 FINAL Asim banerjee Oncology - [place] [facility], [address] [place] [address] [address] [place] [id number] 0 Phone: () - 06/19 CBC w/ auto diff BA # K/uL 0.0 0.2 0.0 FINAL Asim banerjee Oncology - [place] lis, [address] [place] [address] [address] [place] [id number] 0 Phone: () - 06/19 CBC w/ auto diff NRBC % #/100W BC 0.0 0.2 0.0 FINAL Asim banerjee Oncology - [place] [facility], [address] [place] [address] [address] [place] [id number] 0 Phone: () - 06/19 CBC w/ auto diff RBC M/uL 3.9 5.1 4.67 FINAL Asim banerjee Oncology - [place] lis, [address] [place] [address] [address] [place] [id number] 0 Phone: () - 06/19 CBC w/ auto diff HCT % 35.0 48.0 41.7 FINAL Asim banerjee Oncology - [place] lis, [address] [place] [address] [address] [place] [id number] 0 Phone: () - 06/19 CBC w/ auto diff MCV fL 80.0 104.0 89.3 FINAL Asim banerjee Oncology - [place] lis, [address] [place] [address] [address] [place] [id number] 0 Phone: () - 06/19 CBC w/ auto diff MCH pg 26.0 35.0 30.4 FINAL Asim banerjee Oncology - [place] lis, [address] [place] [address] [address] [place] [id number] 0 Phone: () - 06/19 CBC w/ auto diff MCHC g/dL 30.0 35.0 34.1 FINAL Asim banerjee Oncology - [place] lis, [address] [place] [address] [address] [place] [id number] 0 Phone: () - 06/19 CBC w/ auto diff MPV fL 9.5 13.4 8.8 Low FINAL Asim banerjee [facility] lis, [address] [place] [address] [address] [place] [id number] 0 Phone: () - 06/19 CBC w/ auto diff RDW % 11.4 16.1 13.[address] [facility], [address] [place] [address] [address] [place] [id number] 0 Phone: () - 06/19 LDH panel LDH U/L 120.0 246.0 246 FINAL Asim banerjee [facility], [address] [place] [id number] 0 Phone: () - 06/19 CMP Album in g/dL 3.2 5.2 4.6 FINAL Asim banerjee [facility], [address] [facility] [address] [place] [address] [id number] 0 Phone: () - 06/19 CMP Alkal ine phosp hatas e U/L 46.0 116.0 91 FINAL Asim Clemens lavonne [facility], [address] [place] [address] [id number] 0 Phone: () - 06/19 CMP ALT/S GPT U/L 7.0 40.0 27 [facility] [address] [facility] [address] [place] [address] [id number] 0 Phone: () - 06/19 CMP AST/S GOT U/L 13.0 40.0 34 [facility] [address] [facility] [address] [place] [address] [id number] 0 Phone: () - 06/19 CMP BUN mg/dL 9.0 23.0 11 FINAL Asim Clemens lavonne [facility] [address] [facility] [address] [place] [address] [id number] 0 Phone: () - 06/19 CMP Calci um mg/dL 8.7 10.4 9.4 FINAL Asim banerjee [facility], [address] [place] [address] [id number] 0 Phone: () - 06/19 CMP Chlor ray mmol/L 96.0 114.0 107 FINAL Asim [facility], [address] [facility] [address] [facility] [id number] 0 Phone: () - 06/19 CMP CO2 [...] the 96 hour stability window. FINAL Asim [facility], [address] [id number] 0 Phone: () - 06/19 CMP Creat inine mg/dL 0.[address] [address] [id number] 0 Phone: () - 06/19 CMP GFR estim ate ml/min /1.73m ^2 103.9 GFR is calculate d using the CKD-EPI equation. FINAL [place] [address] [id number] 0 Phone: () - 06/19 CMP Gluco se mg/dL 73.0 126.0 95 [facility] [address] [facility] [address] [id number] 0 Phone: () - 06/19 CMP Potas sium mmol/L 3.5 5.1 4.1 [facility] [address] [facility] [address] [id number] 0 Phone: () - 06/19 CMP Sodiu m mmol/L 136.0 145.0 140 [facility] [address] [facility] [address] [id number] 0 Phone: () - 06/19 CMP Bilir ubin, total mg/dL 0.3 1[address] [facility], [address] [facility] [address] [id number] 0 Phone: () - 06/19 CMP Total prote in g/dL 5.7 8.2 6.9 FINAL Asim Cornelius [facility] [place], [address] [facility] [id number] 0 Phone: () - 06/19 Path perip heral blood slide revie w panel Patho logy/ Cytol ogy Morph ology SEE RESULTS BELOW CASE REPORTSpe cial Hematolog y Report Case: [id number] ing Provider: Asim Cornelius MD Collected :06/19/20 21 1340Order ing Location: [facility] Received: 1 1734Patho logist: Elvie Hernández MDSpecime n: BloodFINA L DIAGNOSIS PERIPHERA L BLOOD:1. Negative for circulati ng blasts2. Within normal limitsEle ctronical ly signed by Elvie Hernández MD on 06/20/2021 at 1:03 PMCOMMENT This case was also reviewed by Mis [place], [place] ([facility]).CL INICAL INFORMATI ONThe patient is a 46-year-o ld female with a history of acute lymphoid leukemia. 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 Staging bone marrow biopsy was negative forlympho ma ([id number]) . Her most recent periphera l blood morpholog y 2019 ([id number] ,05/01/2020 ) was negative for circulati ng [...] blood smear.ADD ITIONAL INFORMATI ONInterpr eted at [facility] - [address], [place], [place] [address]Xnwz Performed by:[facility] - [place], [place] [address]Hzxk e [phone] FINAL Asim Cornelius 01/19 [facility] other lab See frame cleaner d 05/01 [facility] other lab See frame cleaner d 05/06 LDH panel LDH U/L 120.0 246.0 191 FINAL Deepthi [facility], [address] [place] [id number] 0 Phone: () - 05/06 CMP Album in g/dL 3.2 5.2 4.7 FINAL Deepthi Steelsalimayobany [facility], [address] [place] [id number] 0 Phone: () - 05/06 CMP Alkal ine phosp hatas e U/L 46.0 116.0 73 FINAL Deepthi Steelshannon [facility], [address] [id number] 0 Phone: () - 05/06 CMP ALT/S GPT U/L 7.0 40.0 19 FINAL Deepthi banerjee [place] [address] [id number] 0 Phone: () - 05/06 CMP AST/S GOT U/L 13.0 40.0 21 FINAL [place] [address] [id number] 0 Phone: () - 05/06 CMP BUN mg/dL 9.0 23.0 16.0 FINAL Deepthi Dodge [place] [address] [id number] 0 Phone: () - 05/06 CMP Calci um mg/dL 8.7 10.4 9.8 FINAL Deepthi Dodge [place] [address] [id number] 0 Phone: () - 05/06 CMP Chlor ray mmol/L 96.0 114.0 107 FINAL Deepthi Steelyobany [place] [address] [id number] 0 Phone: () - 05/06 CMP CO2 [...] the 96 hour stability window. FINAL [place] [address] [id number] 0 Phone: () - 05/06 CMP Creat inine mg/dL 0.5 1.2 0.80 FINAL Deepthi Dodge [place] [address] [address] [facility] [address] [id number] 0 Phone: () - 05/06 CMP GFR estim ate ml/min /1.73m ^2 90.1 GFR is calculate d using the CKD-EPI equation. FINAL Deepthi Clemens lavonne [facility], [address] [id number] 0 Phone: () - 05/06 CMP Gluco se mg/dL 73.0 126.0 128 High FINAL [facility], [address] [id number] 0 Phone: () - 05/06 CMP Potas sium mmol/L 3.5 5.1 3.9 FINAL [facility], [address] [id number] 0 Phone: () - 05/06 CMP Sodiu m mmol/L 136.0 145.0 142 FINAL [facility], [address] [id number] 0 Phone: () - 05/06 CMP Bilir ubin, total mg/dL 0.3 1.2 0.2 Low FINAL [facility], [address] [id number] 0 Phone: () - 05/06 CMP Total prote in g/dL 5.7 8.2 7.1 FINAL Deepthi Dodge [facility], [address] [id number] 0 Phone: () - 05/06 Retic ulocy te count panel Retic ulocy te, absol [place] M/uL 0.02 0.08 0.07 FINAL Deepthi Dodge [facility], [address] [place] [address] 200 [facility] [id number] 0 Phone: () - 05/06 Retic ulocy te count panel Retic ulocy te count % 0.4 1.6 1.60 FINAL Deepthi Dodge [facility], [address] [place] [address] 200 [facility] [id number] 0 Phone: () - 05/06 Retic ulocy te count panel Immat ure retic ulocy te fract ion, % % 0.0 16.5 9.70 FINAL Deepthi banerjee [facility] - [place] [facility], [address] [place] [address] [address] [place] [id number] 0 Phone: () - 05/06 Retic ulocy te count panel Retic ulocy te cellu lar hemog lobin pg 28.0 37.0 33.0 FINAL Deepthi banerjee [facility] - [place] [facility], [address] [place] [address] [address] [place] [id number] 0 Phone: () - 05/06 CBC w/ auto diff WBC K/uL 3.0 8.9 8.4 FINAL Deepthi Clemens lavonne [facility] - [place] [facility], [address] [place] [id number] 0 Phone: () - 05/06 CBC w/ auto diff HGB g/dL 11.3 15.2 13.6 FINAL Deepthi Clemens lavonne [facility], [address] [place] [id number] 0 Phone: () - 05/06 CBC w/ auto diff PLT K/uL 113.0 364.0 266 FINAL Deepthi Clemens lavonne [facility] - [place] [facility], [address] [place] [id number] 0 Phone: () - 05/06 CBC w/ auto diff Dawna # (ANC) K/uL 1.6 6.6 3.9 FINAL Deepthi Clemens lavonne [facility], [address] [place] [address] [address] [place] [id number] 0 Phone: () - 05/06 CBC w/ auto diff Dawna % % 43.0 74.0 46.7 FINAL Deepthi banerjee [facility] - [place] [facility], [address] [place] [address] [address] [place] [id number] 0 Phone: () - 05/06 CBC w/ auto diff IG % % 0.0 0.5 0.5 FINAL Deepthi Clemens lavonne [facility] - [place] [facility], [address] [place] [address] [address] [place] [id number] 0 Phone: () - 05/06 CBC w/ auto diff IG # K/uL 0.0 0.03 0.04 High FINAL Deepthi banerjee [facility] - [place], [address] [place] [address] [address] [place] [id number] 0 Phone: () - 05/06 CBC w/ auto diff LY % % 14.0 41.0 44.8 High FINAL Deepthi banerjee [facility] - [place], [address] [place] [address] [address] [place] [id number] 0 Phone: () - 05/06 CBC w/ auto diff MO % % 6.0 15.0 6.2 FINAL Deepthi Eli a [facility] - [place], [address] [place] [address] [address] [place] [id number] 0 Phone: () - 05/06 CBC w/ auto diff EO % % 0.0 7.0 1.4 FINAL Deepthi Eli a [facility] - [place], [address] [place] [address] [address] [place] [id number] 0 Phone: () - 05/06 CBC w/ auto diff BA % % 0.0 2.0 0.4 FINAL Deepthi Eli a [facility] - [place], [address] [place] [address] [address] [place] [id number] 0 Phone: () - 05/06 CBC w/ auto diff LY # K/uL 0.4 3.6 3.8 High FINAL Deephti Eli a [facility] - [place], [address] [place] [address] [address] [place] [id number] 0 Phone: () - 05/06 CBC w/ auto diff MO # K/uL 0.2 1.3 0.5 FINAL Deepthi banerjee [facility] - [place], [address] [place] [address] [address] [place] [id number] 0 Phone: () - 05/06 CBC w/ auto diff EO # K/uL 0.0 0.6 0.1 FINAL Deepthi banerjee [facility] - [place], [address] [place] [address] [address] [place] [id number] 0 Phone: () - 05/06 CBC w/ auto diff BA # K/uL 0.0 0.2 0.0 FINAL Deepthi banerjee [facility] - [place], [address] [place] [address] [address] [place] [id number] 0 Phone: () - 05/06 CBC w/ auto diff NRBC % #/100W BC 0.0 0.2 0.0 FINAL Deepthi banerjee [facility] - [place] [facility], [address] [place] [address] [address] [place] [id number] 0 Phone: () - 05/06 CBC w/ auto diff RBC M/uL 3.9 5.1 4.57 FINAL Deepthi banerjee [facility] - [place] [facility], [address] [place] [address] [address] [place] [id number] 0 Phone: () - 05/06 CBC w/ auto diff HCT % 35.0 48.0 40.7 FINAL Deepthi banerjee [facility] - [place] [facility], [address] [place] [address] [address] [place] [id number] 0 Phone: () - 05/06 CBC w/ auto diff MCV fL 80.0 104.0 89.1 FINAL Deepthi banerjee [facility] - [place] [facility], [address] [place] [address] [address] [place] [id number] Phone: () - 05/06 CBC w/ auto diff MCH pg 26.0 35.0 29.8 FINAL Deepthi [facility]er[facility] - [place] [facility], [address] [place] [id number] Phone: () - 05/06 CBC w/ auto diff MCHC g/dL 30.0 35.0 33.4 FINAL Deepthi [facility]jee [facility] - [place] [facility], [address] [place] [address] [address] [place] [id number] Phone: () - 05/06 CBC w/ auto diff MPV fL 9.5 13.4 9.3 Low FINAL Deepthi [facility]erjee [facility] - [place] [facility], [address] [place] [address] [address] [place] [id number] Phone: () - 05/06 CBC w/ auto diff RDW % 11.4 16.1 13.60 FINAL [facility] [place] [facility] [facility], [address] 200 [facility] [phone] 0 Phone: () - Medications Date Name [...]
--- OUTSIDE RECORDS SUMMARY | 2025-02-07 17:49 | XMS_ITS | Clinical Summary ---
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 Gender Identity Not on file Sexual Orientation Not on file Obstetrics History Last Filed Vital Signs Vital Sign Reading Time Taken Comments Blood Pressure 136/78 05/11/2023 1:53 PM CDT Pulse 95 05/11/2023 1:53 PM CDT Temperature 37.3 C (99.2 F) 01/19/2023 11:49 AM ORTHOPEDIC SURGEON Respiratory Rate 22 01/19/2023 11:49 AM ORTHOPEDIC SURGEON Oxygen Saturation 95% 05/11/2023 1:53 PM CDT [...] SCREEN FFDM (IA) Routine 01/15/2015 11:43 AM ORTHOPEDIC SURGEON Other screening mammogram from Last 3 Months or Most Recently Relevant to Health Maintenance Results * ANTI HIV 1/2 (05/03/2019 4:26 AM CDT) HIV-1/HIV-2 ANTIBODY Non-Reacti ve Non-Reacti ve 05/03/2019 7:15 PM CDT [facility] Comment:HIV-1 p24 and HIV-1/ HIV-2 Ab not detected. Blood BLOOD SPECIMEN / Unknown Non-Lab Venipuncture / Unknown 05/03/2019 4:26 AM CDT 05/03/2019 4:32 AM CDT us Lili Christopher MD SEND OUTS Final Result [facility] [address] [place] [address], [place] * XR MAMMO BILAT SCREEN FFDM (01/15/2015 11:43 AM ORTHOPEDIC SURGEON) Anatomical Region Laterality Modality BREASTS, Breast Left, Breast Right Bilateral Mammography Impressions 01/15/2015 3:29 PM ORTHOPEDIC SURGEON There is no radiographic evidence for malignancy. Recommend annual mammograms. A lay language report of this examination will be provided to the patient. MAMMOGRAM ASSESSMENT: ACR 1 Negative Narrative 01/15/2015 3:29 PM ORTHOPEDIC SURGEON XR MAMMO BILAT SCREEN FFDM [G0202.0] CLINICAL [...] Most Recently Relevant to Health Maintenance Insurance [facility] Advance Directives * Full Code (Latest [...] 12:26 PM 07/19/2019 2:38 PM Care Teams Risk Control Officer Relationship Specialty Start Date End Date Wilfredo Ellis MD PCP - General 04/25/08
--- OUTSIDE RECORDS SUMMARY | 2025-02-07 17:49 | XMS_ITS ---
Author Name Interface, [id number] lity Address [address] [place] [address] [place] [address] Organization [facility] Address [address] [place] [address] [address] [address] Care Team Providers Care Beautician Apprentice Name Role Phone Aliza Gan Unavailable Unavailable [...] U/L 120.0 246.0 246 FINAL Asim Cornelius [facility] a [facility]cology - [place], [address] [facility] [phone] Phone: () - 06/19 Path perip heral blood slide revie w panel Patho logy/ Cytol ogy Morph ology SEE RESULTS BELOW CASE REPORTSpe cial Hematolog y Report Case: [id number] ing Provider: Asim Cornelius MD Collected :06/19/20 21 1340Order ing Location: [facility] Received: 1 1734Patho logist: Elvie [...] 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 Staging bone marrow biopsy was negative forlympho ma ([id number]) . Her most recent periphera l blood morpholog y 2019 ([id number] ,05/01/2020 ) was negative for circulati ng [...] blood smear.ADD ITIONAL INFORMATI ONInterpr eted at [facility] - [address], [place], [place] [address]Siqf Performed by:[facility] - [place], [place] [address]Svvy e [phone] FINAL Asim Cornelius 06/19 CBC w/ auto diff WBC K/uL 3.0 8.9 8.7 FINAL Asim Clemensot a Oncology - [facility] lis, [address] [place] [phone] 0 Phone: () - 06/19 CBC w/ auto diff HGB g/dL 11.3 15.2 14.2 FINAL Asim Clemensot a Oncology - [facility], [address] [place] [phone] 0 Phone: () - 06/19 CBC w/ auto diff PLT K/uL 113.0 364.0 282 FINAL Asim Clemensot a Oncology - [facility], [address] [place] [id number] 0 Phone: () - 06/19 CBC w/ auto diff Dawna # (ANC) K/uL 1.6 6.6 4.9 FINAL Asim Eli a [facility] - [place] [facility], [address] [place] [address] [address] [place] [id number] 0 Phone: () - 06/19 CBC w/ auto diff Dawna % % 43.0 74.0 56.8 FINAL Asim Eli a [facility] - [place] [facility], [address] [place] [address] [address] [place] [id number] 0 Phone: () - 06/19 CBC w/ auto diff IG % % 0.0 0.5 0.5 FINAL Asim Eli a [facility] - [place] [facility], [address] [place] [address] [address] [place] [id number] 0 Phone: () - 06/19 CBC w/ auto diff IG # K/uL 0.0 0.03 0.04 High FINAL Asim Eli a [facility] - [place] [facility], [address] [place] [address] [address] [place] [id number] 0 Phone: () - 06/19 CBC w/ auto diff LY % % 14.0 41.0 33.4 FINAL Asim Eli a [facility] - [place] [facility], [address] [place] [address] [address] [place] [id number] 0 Phone: () - 06/19 CBC w/ auto diff MO % % 6.0 15.0 7.0 FINAL Asim Eli a [facility] - [place] [facility], [address] [place] [address] [address] [place] [id number] 0 Phone: () - 06/19 CBC w/ auto diff EO % % 0.0 7.0 1.8 FINAL Asim Eli a [facility] - [place] [facility], [address] [place] [address] [address] [place] [id number] 0 Phone: () - 06/19 CBC w/ auto diff BA % % 0.0 2.0 0.5 FINAL Asim Eli a [facility] - [place] [facility], [address] [place] [address] [address] [place] [id number] 0 Phone: () - 06/19 CBC w/ auto diff LY # K/uL 0.4 3.6 2.9 FINAL Asim Eli a [facility] - [place] [facility], [address] [place] [id number] 0 Phone: () - 06/19 CBC w/ auto diff MO # K/uL 0.2 1.3 0.6 FINAL Asim banerjee [facility]cology - [place] [facility], [address] [place] [id number] 0 Phone: () - 06/19 CBC w/ auto diff EO # K/uL 0.0 0.6 0.2 FINAL Asim banerjee [facility] - [place] [facility], [address] [place] [id number] 0 Phone: () - 06/19 CBC w/ auto diff BA # K/uL 0.0 0.2 0.0 FINAL Asim banerjee [facility]cology - [place] [facility], [address] [place] [id number] 0 Phone: () - 06/19 CBC w/ auto diff NRBC % #/100W BC 0.0 0.2 0.0 FINAL Asim banerjee [facility] - [place] [facility], [address] [place] [id number] 0 Phone: () - 06/19 CBC w/ auto diff RBC M/uL 3.9 5.1 4.67 FINAL Asim banerjee [facility] - [place] [facility], [address] [place] [id number] 0 Phone: () - 06/19 CBC w/ auto diff HCT % 35.0 48.0 41.7 FINAL Asim banerjee [facility] - [place] [facility], [address] [place] [id number] 0 Phone: () - 06/19 CBC w/ auto diff MCV fL 80.0 104.0 89.3 FINAL Asim banerjee [facility] - [place] [facility], [address] [place] [address] [address] [place] [id number] 0 Phone: () - 06/19 CBC w/ auto diff MCH pg 26.0 35.0 30.4 FINAL Asim banerjee [facility] - [place] [facility], [address] [place] [id number] 0 Phone: () - 06/19 CBC w/ auto diff MCHC g/dL 30.0 35.0 34.1 FINAL Asim banerjee [facility] - [place] [facility], [address] [place] [id number] 0 Phone: () - 06/19 CBC w/ auto diff MPV fL 9.5 13.4 8.8 Low FINAL Asim banerjee [facility] - [place] [facility], [address] 200 [place] [id number] 0 Phone: () - 06/19 CBC w/ auto diff RDW % 11.4 16.1 13.10 FINAL Asim banerjee [facility] - [place] [facility], [address] [place] [address] 200 [place] [id number] 0 Phone: () - 06/19 Retic ulocy te count panel Retic ulocy te, absol inaja M/uL 0.02 0.08 0.08 FINAL Asim banerjee [facility] - [place] [facility], [address] 200 [place] [id number] 0 Phone: () - 06/19 Retic ulocy te count panel Retic ulocy te count % 0.4 1.6 1.75 High FINAL Asim banerjee [facility] - [place] [facility], [address] [place] [address] 200 [place] [id number] 0 Phone: () - 06/19 Retic ulocy te count panel Immat ure retic ulocy te fract ion, % % 0.0 16.5 10.80 FINAL Asim banerjee [facility] - [place] [facility], [address] 200 [place] [id number] 0 Phone: () - 06/19 Retic ulocy te count panel Retic ulocy te cellu lar hemog lobin pg 28.0 37.0 34.6 FINAL Asim banerjee [facility] - [place] [facility], [address] [place] [address] 200 [place] [id number] 0 Phone: () - 06/19 CMP Album in g/dL 3.2 5.2 4.6 FINAL Asim banerjee [facility], [address] [facility] [id number] 0 Phone: () - 06/19 CMP Alkal ine phosp hatas e U/L 46.0 116.0 91 FINAL Asimmatt Cornelius [facility], [address] [facility] [id number] 0 Phone: () - 06/19 CMP ALT/S GPT U/L 7.0 40.0 27 FINAL Asim Cornelius [facility], [address] [facility] [id number] 0 Phone: () - 06/19 CMP AST/S GOT U/L 13.0 40.0 34 FINAL [facility], [address] [facility] [id number] 0 Phone: () - 06/19 CMP BUN mg/dL 9.0 23.0 11 FINAL [facility], [address] [place] [id number] [phone] Phone: () - 06/19 CMP Calci um mg/dL 8.7 10.4 9.4 FINAL [facility], [address] [facility] [id number] 0 Phone: () - 06/19 CMP Chlor ray mmol/L 96.0 114.0 107 FINAL [facility], [address] [place] [id number] 0 Phone: () - 06/19 CMP CO2 [...] the 96 hour stability window. FINAL [facility], [address] [facility] [id number] 0 Phone: () - 06/19 CMP Creat inine mg/dL 0.5 1.2 0.68 FINAL [facility] [address] [facility] [id number] 0 Phone: () - 06/19 CMP GFR estim ate ml/min /1.73m ^2 103.9 GFR is calculate d using the CKD-EPI equation. FINAL Asim Cornelius [facility], [address] [facility] [id number] 0 Phone: () - 06/19 CMP Gluco se mg/dL 73.0 126.0 95 FINAL Asimmatt Cornelius [facility], [address] [facility] [id number] 0 Phone: () - 06/19 CMP Potas sium mmol/L 3.[address] [facility], [address] [facility] [id number] 0 Phone: () - 06/19 CMP Sodiu m mmol/L 136.0 145.0 140 FINAL Asim [facility], [address] [facility] [id number] 0 Phone: () - 06/19 CMP Bilir ubin, total mg/dL 0.[address] [facility], [address] [facility] [id number] 0 Phone: () - 06/19 CMP Total prote in g/dL 5.[address] [facility] [address] [facility] 100 [facility] [phone] 0 Phone: () - 01/19 [facility] other lab See bail attacher d 05/01 Mis other lab See bail attacher d 05/06 CBC w/ auto diff WBC K/uL 3.0 8.9 8.4 FINAL Deepthi [facility], [address] [facility] [id number] 0 Phone: () - 05/06 CBC w/ auto diff HGB g/dL 11.3 15.2 13.6 FINAL Deepthi Clemens [facility] - [place] [facility], [address] [place] [id number] 0 Phone: () - 05/06 CBC w/ auto diff PLT K/uL 113.0 364.0 266 FINAL Deepthi banerjee [facility]cology - [place] [facility], [address] [place] [id number] 0 Phone: () - 05/06 CBC w/ auto diff Dawna # (ANC) K/uL 1.6 6.6 3.9 FINAL Deepthi banerjee [facility] - [place] [facility], [address] [place] [id number] 0 Phone: () - 05/06 CBC w/ auto diff Dawna % % 43.0 74.0 46.7 FINAL Deepthi banerjee [facility] - [place] [facility], [address] 200 [place] [id number] 0 Phone: () - 05/06 CBC w/ auto diff IG % % 0.0 0.5 0.5 FINAL Deepthi banerjee [facility] - [place] [facility], [address] 200 [place] [id number] 0 Phone: () - 05/06 CBC w/ auto diff IG # K/uL 0.0 0.03 0.04 High FINAL Deepthi banerjee [facility] - [place] [facility], [address] [place] [id number] 0 Phone: () - 05/06 CBC w/ auto diff LY % % 14.0 41.0 44.8 High FINAL Deepthi banerjee [facility] - [place] [facility], [address] [place] [id number] 0 Phone: () - 05/06 CBC w/ auto diff MO % % 6.0 15.0 6.2 FINAL Deepthi banerjee [facility] - [place] [facility], [address] [place] [id number] 0 Phone: () - 05/06 CBC w/ auto diff EO % % 0.0 7.0 1.4 FINAL Deepthi banerjee [facility] - [place] [facility], [address] 200 [place] [id number] 0 Phone: () - 05/06 CBC w/ auto diff BA % % 0.0 2.0 0.4 FINAL Deepthi banerjee [facility] - [place] [facility], [address] [place] [address] 200 [place] [id number] 0 Phone: () - 05/06 CBC w/ auto diff LY # K/uL 0.4 3.6 3.8 High FINAL Deepthi banerjee [facility] - [place] [facility], [address] [place] [address] 200 [place] [id number] 0 Phone: () - 05/06 CBC w/ auto diff MO # K/uL 0.2 1.3 0.5 FINAL Deepthi banerjee [facility] - [place] [facility], [address] [place] [address] 200 [place] [id number] 0 Phone: () - 05/06 CBC w/ auto diff EO # K/uL 0.0 0.6 0.1 FINAL Deepthi banerjee [facility] - [place] [facility], [address] [place] [address] 200 [place] [id number] 0 Phone: () - 05/06 CBC w/ auto diff BA # K/uL 0.0 0.2 0.0 FINAL Deepthi banerjee [facility] - [place] [facility], [address] [place] [address] 200 [place] [id number] 0 Phone: () - 05/06 CBC w/ auto diff NRBC % #/100W BC 0.0 0.2 0.0 FINAL Deepthi banerjee [facility] - [place] [facility], [address] [place] [address] 200 [place] [id number] 0 Phone: () - 05/06 CBC w/ auto diff RBC M/uL 3.9 5.1 4.57 FINAL Deepthi banerjee [facility] - [place] [facility], [address] [place] [address] 200 [place] [id number] 0 Phone: () - 05/06 CBC w/ auto diff HCT % 35.0 48.0 40.7 FINAL Deepthi banerjee [facility] - [place] [facility], [address] [place] [address] 200 [place] [id number] 0 Phone: () - 05/06 CBC w/ auto diff MCV fL 80.0 104.0 89.1 FINAL Deepthi banerjee [facility] - [place] [facility], [address] [place] [address] 200 [place] [id number] 0 Phone: () - 05/06 CBC w/ auto diff MCH pg 26.0 35.0 29.8 FINAL Deepthi banerjee [facility] - [place] [facility], [address] [place] [address] 200 [place] [id number] 0 Phone: () - 05/06 CBC w/ auto diff MCHC g/dL 30.0 35.0 33.4 FINAL Deepthi banerjee [facility] - [place] [facility], [address] [place] [address] 200 [place] [id number] 0 Phone: () - 05/06 CBC w/ auto diff MPV fL 9.5 13.4 9.3 Low FINAL Deepthi Clemens [facility] - [place] [facility], [address] [place] [address] [address] [place] [phone] 0 Phone: () - 05/06 CBC w/ auto diff RDW % 11.4 16.1 13.60 FINAL Deepthi Clemens [facility] - [place] [facility], [address] [place] [address] [address] [place] [phone] 0 Phone: () - 05/06 Retic ulocy te count panel Retic ulocy te, absol inaja M/uL 0.02 0.08 0.07 FINAL Deepthi Clemens [facility] [place] [facility], [address] [place] [address] 200 [place] [id number] 0 Phone: () - 05/06 Retic ulocy te count panel Retic ulocy te count % 0.4 1.6 1.60 FINAL Deepthi Clemens [facility] [place] [facility], [address] [place] [address] 200 [place] [id number] 0 Phone: () - 05/06 Retic ulocy te count panel Immat ure retic ulocy te fract ion, % % 0.0 16.5 9.70 FINAL Deepthi Clemens [facility] [place] [facility], [address] [place] [address] 200 [place] [phone] 0 Phone: () - 05/06 Retic ulocy te count panel Retic ulocy te cellu lar hemog lobin pg 28.0 37.0 33.0 FINAL Deepthi banerjee [facility] lis, [address] [place] [address] [facility] [id number] 0 Phone: () - 05/06 CMP Album in g/dL 3.2 5.2 4.7 FINAL [place] [address] [phone] 0 Phone: () - 05/06 CMP Alkal ine phosp hatas e U/L 46.0 116.0 73 FINAL [place] [address] [phone] 0 Phone: () - 05/06 CMP ALT/S GPT U/L 7.0 40.0 19 FINAL [place] [address] [id number] 0 Phone: () - 05/06 CMP AST/S GOT U/L 13.0 40.0 21 FINAL [place] [address] [phone] 0 Phone: () - 05/06 CMP BUN mg/dL 9.0 23.0 16.0 FINAL [place] [address] [phone] 0 Phone: () - 05/06 CMP Calci um mg/dL 8.7 10.4 9.8 FINAL Deepthi Dodge [place] [address] [phone] 0 Phone: () - 05/06 CMP Chlor ray mmol/L 96.0 114.0 107 FINAL [place] [address] [phone] 0 Phone: () - 05/06 CMP CO2 [...] 96 hour stability window. FINAL Deepthi banerjee [place] [address] [phone] Phone: () - 05/06 CMP Creat inine mg/dL 0.5 1.2 0.80 FINAL Deepthi banerjee [place] [address] [phone] 0 Phone: () - 05/06 CMP GFR estim ate ml/min /1.73m ^2 90.1 GFR is calculate d using the CKD-EPI equation. FINAL Deepthi Clemens [place] [address] [phone] 0 Phone: () - 05/06 CMP Gluco se mg/dL 73.0 126.0 128 High FINAL Deepthi Clemens [place] [address] [phone] 0 Phone: () - 05/06 CMP Potas sium mmol/L 3.5 5.1 3.9 FINAL Deepthi Clemens [place] [address] [phone] Phone: () - 05/06 CMP Sodiu m mmol/L 136.0 145.0 142 FINAL [place] [address] [phone] 0 Phone: () - 05/06 CMP Bilir ubin, total mg/dL 0.3 1.2 0.2 Low FINAL [place] [address] [phone] 0 Phone: () - 05/06 CMP Total prote in g/dL 5.7 8.2 7.1 FINAL [place] [address] [address] [facility] 100 [facility] [phone] 0 Phone: () - 05/06 LDH panel LDH U/L 120.0 246.0 191 FINAL Deepthi Eli a [facility] - [place], [address] [facility] [address] [facility] [phone] 0 Phone: () - Medications Date Name [...]
--- OUTSIDE RECORDS SUMMARY | 2025-02-07 17:49 | XMS_ITS | CCD ---
Author Name Interface, [id number] lity Address [address] [place], [place] [id number] [facility] Address [address] [place] [address] Care Team Providers Care Marble Coper Name Role Phone Deepthi Dodge Unavailable Unavailable Cheryle Ashford Unavailable Unavailable Care Plan Reason for Visit Encounters Functional Status Medications Problems Procedures Social History
--- OUTSIDE RECORDS SUMMARY | 2025-02-07 17:49 | XMS_ITS ---
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 Staging bonemarro w biopsy [...] specimens .ADDITION AL INFORMATI ONInterpr eted at [facility] - [address], [facility] [place], [place] [address]Fnog Performed by:[facility], [address] - [facility] [place], [place] [address]Ivpw e [phone] FINAL Asim Ashli 05/01 Retic ulocy te count panel Retic ulocy te, absol [place] M/uL 0.02 0.08 0.08 FINAL Asim Clemens a Oncology - [facility] lis, [address] [place] [address] [address] [place] [id number] 0 Phone: () - 05/01 Retic ulocy te count panel Retic ulocy te count % 0.4 1.6 2.07 High FINAL Asim Clemensot a [facility] - [facility], [address] [facility] [facility] [address] [place] [id number] 0 Phone: () - 05/01 Retic ulocy te count panel Immat ure retic ulocy te fract ion, % % 0.0 16.5 10.10 FINAL Asim banerjee Oncology - [facility], [address] [place] [id number] 0 Phone: () - 05/01 Retic ulocy te count panel Retic ulocy te cellu lar hemog lobin pg 28.0 37.0 36.5 FINAL Asim banerjee Oncology - [facility], [address] [place] [address] [address] [place] [id number] 0 Phone: () - 05/01 Smear revie w panel CBC Smear revie w comme nts Large and-or giant platele ts present Atypica l (Reacti ve and/or Variant ) Lymphs present Abnor mal FINAL Asim banerjee Oncology - [facility], [address] [place] [id number] 0 Phone: () - 05/01 CBC w/ auto diff PLT K/uL 113.0 364.0 257 FINAL Asim banerjee Oncology - [facility], [address] [place] [id number] 0 Phone: () - 05/01 CBC w/ auto diff Dawna # (ANC) K/uL 1.6 6.6 2.2 FINAL Asim banerjee Oncology - [facility], [address] [place] [id number] 0 Phone: () - 05/01 CBC w/ auto diff Dawna % % 43.0 74.0 46.0 FINAL Asim banerjee Oncology - [facility], [address] [place] [address] [address] [place] [id number] 0 Phone: () - 05/01 CBC w/ auto diff IG % % 0.0 0.5 0.4 FINAL Asim banerjee Oncology - [facility], [address] [place] [address] [address] [place] [id number] 0 Phone: () - 05/01 CBC w/ auto diff IG # K/uL 0.0 0.03 0.02 FINAL Asim banerjee Oncology - [facility], [address] [place] [address] [address] [place] [id number] 0 Phone: () - 05/01 CBC w/ auto diff LY % % 14.0 41.0 38.7 FINAL Asim Clemensot a Oncology - [place] [facility], [address] [place] [address] 200 [place] [id number] 0 Phone: () - 05/01 CBC w/ auto diff MO % % 6.0 15.0 10.0 FINAL Asimmatt Clemensot a Oncology - [place] [facility], [address] [place] [address] 200 [place] [id number] 0 Phone: () - 05/01 CBC w/ auto diff EO % % 0.0 7.0 4.3 FINAL Asimmatt Clemensot a Oncology - [place] [facility], [address] [place] [id number] 0 Phone: () - 05/01 CBC w/ auto diff BA % % 0.0 2.0 0.6 FINAL Asim Clemensot a Oncology - [place] [facility], [address] 200 [facility] [place] [id number] 0 Phone: () - 05/01 CBC w/ auto diff LY # K/uL 0.4 3.6 1.9 FINAL Asimmatt Clemensot a Oncology - [place] [facility], [address] [place] [id number] 0 Phone: () - 05/01 CBC w/ auto diff MO # K/uL 0.2 1.3 0.5 FINAL Asim Clemensot a Oncology - [place] [facility], [address] [place] [address] 200 [place] [id number] 0 Phone: () - 05/01 CBC w/ auto diff EO # K/uL 0.0 0.6 0.2 FINAL Asimmatt Clemensot a Oncology - [place] [facility], [address] [place] [id number] 0 Phone: () - 05/01 CBC w/ auto diff BA # K/uL 0.0 0.2 0.0 FINAL Asimmatt Clemensot a Oncology - [place] [facility], [address] [place] [address] [address] [place] [id number] 0 Phone: () - 05/01 CBC w/ auto diff NRBC % #/100W BC 0.0 0.2 0.0 FINAL Asim banerjee Oncology - [place] [facility], [address] [place] [address] [address] [place] [id number] 0 Phone: () - 05/01 CBC w/ auto diff RBC M/uL 3.9 5.1 4.01 FINAL Asim banerjee Oncology - [place] [facility], [address] [place] [address] [address] [place] [id number] 0 Phone: () - 05/01 CBC w/ auto diff HCT % 35.0 48.0 36.8 FINAL Asim banerjee Oncology - [place] [facility], [address] [place] [address] [address] [place] [id number] 0 Phone: () - 05/01 CBC w/ auto diff MCV fL 80.0 104.0 91.8 FINAL Asim banerjee Oncology - [place] [facility], [address] [place] [address] [address] [place] [id number] 0 Phone: () - 05/01 CBC w/ auto diff MCH pg 26.0 35.0 31.2 FINAL Asim banerjee Oncology - [place] [facility], [address] [place] [address] [address] [place] [id number] 0 Phone: () - 05/01 CBC w/ auto diff MCHC g/dL 30.0 35.0 34.0 FINAL Asim banerjee Oncology - [place] [facility], [address] [place] [address] [address] [place] [id number] 0 Phone: () - 05/01 CBC w/ auto diff MPV fL 9.5 13.4 9.1 Low FINAL Asim banerjee Oncology - [place] [facility], [address] [place] [address] [address] [place] [id number] 0 Phone: () - 05/01 CBC w/ auto diff RDW % 11.4 16.1 13.90 FINAL Asim banerjee Oncology - [place] [facility], [address] [place] [address] [address] [place] [id number] 0 Phone: () - 05/01 CBC w/ auto diff Auto CBC comme nts Slide review to follow FINAL Asim banerjee Oncology - [place] [facility], [address] [place] [address] [address] [place] [id number] 0 Phone: () - 05/01 CBC w/ auto diff WBC K/uL 3.0 8.9 4.9 FINAL Asim banerjee [facility], [address] 200 [place] [id number] 0 Phone: () - 05/01 CBC w/ auto diff HGB g/dL 11.3 15.2 12.5 FINAL Asim banerjee [facility], [address] 200 [place] [id number] 0 Phone: () - 05/01 CMP Album in g/dL 3.2 5.2 4.4 FINAL Asim banerjee [address] [id number] 0 Phone: () - 05/01 CMP Alkal ine phosp hatas e U/L 46.0 116.0 76 FINAL Asimmatt Clemens lavonne [address] [id number] 0 Phone: () - 05/01 CMP ALT/S GPT U/L 7.0 40.0 12 FINAL Asimmatt Clemens[address] [place] [id number] 0 Phone: () - 05/01 CMP AST/S GOT U/L 13.0 40.0 16 FINAL Asimmatt Clemens lavonne [address] [id number] 0 Phone: () - 05/01 CMP BUN mg/dL 9.0 23.0 19 FINAL Asimmatt Clemens lavonne [address] [place] [id number] 0 Phone: () - 05/01 CMP Calci um mg/dL 8.7 10.4 9.4 FINAL Asimmatt banerjee [address] [place] [id number] 0 Phone: () - 05/01 CMP Chlor ray mmol/L 96.0 114.0 107 FINAL Asimmatt Clemens[address] [id number] 0 Phone: () - 05/01 CMP CO2 mmol/L 20.0 31.0 [address] [id number] 0 Phone: () - 05/01 CMP Creat inine mg/dL 0.5 1.2 0.[address] [id number] 0 Phone: () - 05/01 CMP GFR estim ate ml/min /1.73m ^2 97.0 GFR is calculate d using the CKD-EPI equation. FINAL [address] [id number] 0 Phone: () - 05/01 CMP Gluco se mg/dL 73.0 126.0 150 High FINAL [address] [id number] 0 Phone: () - 05/01 CMP Potas sium mmol/L 3.5 5.[address] [place] [id number] 0 Phone: () - 05/01 CMP Sodiu m mmol/L 136.0 145.[address] [id number] 0 Phone: () - 05/01 CMP Bilir ubin, total mg/dL 0.3 1.2 0.2 Low FINAL [address] [place] [id number] 0 Phone: () - 05/01 CMP Total prote in g/dL 5.7 8.[address] [place] [id number] 0 Phone: () - 06/19 Retic ulocy te count panel Retic ulocy te, absol [place] M/uL 0.02 0.08 0.08 FINAL [facility] lis, [address] [place] [id number] 0 Phone: () - 06/19 Retic ulocy te count panel Retic ulocy te count % 0.4 1.6 1.75 High FINAL Asim banerjee Oncology - [facility], [address] [place] [id number] 0 Phone: () - 06/19 Retic ulocy te count panel Immat ure retic ulocy te fract ion, % % 0.0 16.5 10.80 FINAL Asim banerjee [facility]cology - [place] [facility], [address] [place] [address] 200 [place] [id number] 0 Phone: () - 06/19 Retic ulocy te count panel Retic ulocy te cellu lar hemog lobin pg 28.0 37.0 34.6 FINAL Asim banerjee Oncology - [place] [facility], [address] 200 [place] [id number] 0 Phone: () - 06/19 CBC w/ auto diff WBC K/uL 3.0 8.9 8.7 FINAL Asim banerjee Oncology - [place] [facility], [address] [place] [id number] 0 Phone: () - 06/19 CBC w/ auto diff HGB g/dL 11.3 15.2 14.2 FINAL Asim banerjee Oncology - [place] [facility], [address] 200 [place] [id number] 0 Phone: () - 06/19 CBC w/ auto diff PLT K/uL 113.0 364.0 282 FINAL Asim banerjee Oncology - [facility], [address] [place] [id number] 0 Phone: () - 06/19 CBC w/ auto diff Dawna # (ANC) K/uL 1.6 6.6 4.9 FINAL Asim banerjee Oncology - [facility], [address] [place] [id number] 0 Phone: () - 06/19 CBC w/ auto diff Dawna % % 43.0 74.0 56.8 FINAL Asim banerjee Oncology - [facility], [address] [place] [id number] 0 Phone: () - 06/19 CBC w/ auto diff IG % % 0.0 0.5 0.5 FINAL Asim banerjee Oncology - [place] [facility], [address] [place] [id number] 0 Phone: () - 06/19 CBC w/ auto diff IG # K/uL 0.0 0.03 0.04 High FINAL Asim banerjee Oncology - [place] [facility], [address] [place] [address] 200 [place] [id number] 0 Phone: () - 06/19 CBC w/ auto diff LY % % 14.0 41.0 33.4 FINAL Asim banerjee Oncology - [place] [facility], [address] [place] [id number] 0 Phone: () - 06/19 CBC w/ auto diff MO % % 6.0 15.0 7.0 FINAL Asim banerjee Oncology - [place] [facility], [address] [facility] [place] [id number] 0 Phone: () - 06/19 CBC w/ auto diff EO % % 0.0 7.0 1.8 FINAL Asim banerjee Oncology - [place] [facility], [address] [place] [id number] 0 Phone: () - 06/19 CBC w/ auto diff BA % % 0.0 2.0 0.5 FINAL Asim Eli a [facility] - [place] [facility], [address] [place] [id number] 0 Phone: () - 06/19 CBC w/ auto diff LY # K/uL 0.4 3.6 2.9 FINAL Asimmatt Eli a Oncology - [place] [facility], [facility] [address] [place] [id number] 0 Phone: () - 06/19 CBC w/ auto diff MO # K/uL 0.2 1.3 0.6 FINAL Asim Eli a Oncology - [place] [facility], [address] [place] [id number] 0 Phone: () - 06/19 CBC w/ auto diff EO # K/uL 0.0 0.6 0.2 FINAL Asim banerjee Oncology - [place] [facility], [address] [place] [address] [address] [place] [id number] 0 Phone: () - 06/19 CBC w/ auto diff BA # K/uL 0.0 0.2 0.0 FINAL Asim banerjee Oncology - [place] [facility], [address] [place] [address] [address] [place] [id number] 0 Phone: () - 06/19 CBC w/ auto diff NRBC % #/100W BC 0.0 0.2 0.0 FINAL Asim banerjee Oncology - [place] [facility], [address] [place] [address] [address] [place] [id number] 0 Phone: () - 06/19 CBC w/ auto diff RBC M/uL 3.9 5.1 4.67 FINAL Asim banerjee Oncology - [place] [facility], [address] [place] [address] [address] [place] [id number] 0 Phone: () - 06/19 CBC w/ auto diff HCT % 35.0 48.0 41.7 FINAL Asim banerjee Oncology - [place] [facility], [address] [place] [address] [address] [place] [id number] 0 Phone: () - 06/19 CBC w/ auto diff MCV fL 80.0 104.0 89.3 FINAL Asim banerjee Oncology - [place] [facility], [address] [place] [address] [address] [place] [id number] 0 Phone: () - 06/19 CBC w/ auto diff MCH pg 26.0 35.0 30.4 FINAL Asim banerjee Oncology - [place] [facility], [address] [place] [address] [address] [place] [id number] 0 Phone: () - 06/19 CBC w/ auto diff MCHC g/dL 30.0 35.0 34.1 FINAL Asim banerjee Oncology - [place] [facility], [address] [place] [address] [address] [place] [id number] 0 Phone: () - 06/19 CBC w/ auto diff MPV fL 9.5 13.4 8.8 Low FINAL Asim banerjee [facility] lis, [address] [place] [address] [address] [place] [id number] 0 Phone: () - 06/19 CBC w/ auto diff RDW % 11.4 16.1 13.10 FINAL Asim banerjee [facility], [address] [place] [address] [address] [place] [id number] 0 Phone: () - 06/19 LDH panel LDH U/L 120.0 246.0 246 FINAL Asim banerjee [facility], [address] [place] [address] [id number] 0 Phone: () - 06/19 CMP Album in g/dL 3.2 5.2 4.6 FINAL Asim banerjee [facility], [address] [facility] [address] [place] [address] [id number] 0 Phone: () - 06/19 CMP Alkal ine phosp hatas e U/L 46.0 116.0 91 FINAL Asim Clemens lavonne [facility], [address] [place] [address] [id number] 0 Phone: () - 06/19 CMP ALT/S GPT U/L 7.0 40.0 27 [facility]AL [facility] [address] [facility] [address] [place] [address] [id number] 0 Phone: () - 06/19 CMP AST/S GOT U/L 13.0 40.0 34 [facility], [address] [facility] [address] [place] [address] [id number] 0 Phone: () - 06/19 CMP BUN mg/dL 9.0 23.0 11 FINAL Asim Clemens lavonne [facility] [address] [facility] [address] [place] [address] [id number] 0 Phone: () - 06/19 CMP Calci um mg/dL 8.7 10.4 9.4 FINAL Asim banerjee [facility], [address] [place] [address] [id number] 0 Phone: () - 06/19 CMP Chlor ray mmol/L 96.0 114.0 107 FINAL Asim [facility] [place], [address] [facility] [address] [facility] [id number] 0 Phone: () - 06/19 CMP CO2 [...] the 96 hour stability window. FINAL Asim [facility], [address] [id number] 0 Phone: () - 06/19 CMP Creat inine mg/dL 0.5 1.2 0.68 [facility] [address] [id number] 0 Phone: () - 06/19 CMP GFR estim ate ml/min /1.73m ^2 103.9 GFR is calculate d using the CKD-EPI equation. FINAL [place] [address] [id number] 0 Phone: () - 06/19 CMP Gluco se mg/dL 73.0 126.0 95 [facility] [address] [facility] [address] [id number] 0 Phone: () - 06/19 CMP Potas sium mmol/L 3.5 5.1 4.1 [facility] [address] [facility] [address] [id number] 0 Phone: () - 06/19 CMP Sodiu m mmol/L 136.0 145.0 140 [facility] [address] [facility] [address] [id number] 0 Phone: () - 06/19 CMP Bilir ubin, total mg/dL 0.3 1.2 0.2 Low [facility], [address] [facility] [address] [id number] 0 Phone: () - 06/19 CMP Total prote in g/dL 5.7 8.2 6.9 FINAL Asim [facility]elius [facility] [place], [address] [facility] [id number] 0 Phone: () - 06/19 Path perip heral blood slide revie w panel Patho logy/ Cytol ogy Morph ology SEE RESULTS BELOW CASE REPORTSpe cial Hematolog y Report Case: [id number] ing Provider: Asim Cornelius MD Collected :06/19/20 21 1340Order ing Location: [facility] Received: 1 1734Patho logist: Elvie Hernández MDSpecime n: BloodFINA L DIAGNOSIS PERIPHERA L BLOOD:1. Negative for circulati ng blasts2. Within normal limitsEle ctronical ly signed by Elvie Hernández MD on 06/20/2021 at 1:03 PMCOMMENT This case was also reviewed by Mis hill [place], MS ([facility]).CL INICAL INFORMATI ONThe patient is a 46-year-o ld female with a history of acute lymphoid leukemia. 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 Staging bone marrow biopsy was negative forlympho ma ([id number]) . Her most recent periphera l blood morpholog y 2019 ([id number] ,05/01/2020 ) was negative for circulati ng [...] blood smear.ADD ITIONAL INFORMATI ONInterpr eted at [facility] - [address], [place], [place] [address]Smnp Performed by:[facility] - [place], [place] [address]Whoo e : FINAL Asim Cornelius 01/19 [facility] other lab See varitypist d 05/01 [facility] other lab See varitypist d 05/06 LDH panel LDH U/L 120.0 246.0 191 FINAL Deepthi [facility]any [facility], [address] [place] [id number] 0 Phone: () - 05/06 CMP Album in g/dL 3.2 5.2 4.7 FINAL Deepthi Steelsalimayobany [facility], [address] [place] [id number] 0 Phone: () - 05/06 CMP Alkal ine phosp hatas e U/L 46.0 116.0 73 FINAL Deepthi Steelshannon [facility], [address] [id number] 0 Phone: () - 05/06 CMP ALT/S GPT U/L 7.0 40.0 19 FINAL Deepthi banerjee [place] [address] [id number] 0 Phone: () - 05/06 CMP AST/S GOT U/L 13.0 40.0 21 FINAL [place] [address] [id number] 0 Phone: () - 05/06 CMP BUN mg/dL 9.0 23.0 16.0 FINAL Deepthi Dodge [place] [address] [id number] 0 Phone: () - 05/06 CMP Calci um mg/dL 8.7 10.4 9.8 FINAL Deepthi Dodge [place] [address] [id number] 0 Phone: () - 05/06 CMP Chlor ray mmol/L 96.0 114.0 107 FINAL Deepthi Steelyobany [place] [address] [id number] 0 Phone: () - 05/06 CMP CO2 [...] the 96 hour stability window. FINAL [place] [address] [phone] 0 Phone: () - 05/06 CMP Creat inine mg/dL 0.5 1.2 0.80 FINAL Deepthi Dodge [place] [address] [address] [facility] [address] [id number] 0 Phone: () - 05/06 CMP GFR estim ate ml/min /1.73m ^2 90.1 GFR is calculate d using the CKD-EPI equation. FINAL Deepthi Clemens lavonne [facility], [address] [phone] 0 Phone: () - 05/06 CMP Gluco se mg/dL 73.0 126.0 128 High FINAL [facility], [address] [id number] 0 Phone: () - 05/06 CMP Potas sium mmol/L 3.5 5.1 3.9 FINAL [facility], [address] [id number] 0 Phone: () - 05/06 CMP Sodiu m mmol/L 136.0 145.0 142 FINAL [facility], [address] [phone] 0 Phone: () - 05/06 CMP Bilir ubin, total mg/dL 0.3 1.2 0.2 Low FINAL [facility], [address] [id number] 0 Phone: () - 05/06 CMP Total prote in g/dL 5.7 8.2 7.1 FINAL Deepthi Dodge [facility], [address] [id number] 0 Phone: () - 05/06 Retic ulocy te count panel Retic ulocy te, absol [place] [facility] [place] M/uL 0.02 0.08 0.07 FINAL Deepthi Dodge [facility], [address] [place] [address] 200 [facility] [id number] 0 Phone: () - 05/06 Retic ulocy te count panel Retic ulocy te count % 0.4 1.6 1.60 FINAL Deepthi Dodge [facility], [address] [place] [address] 200 [facility] [phone] 0 Phone: () - 05/06 Retic ulocy te count panel Immat ure retic ulocy te fract ion, % % 0.0 16.5 9.70 FINAL Deepthi banerjee Oncology - [facility], [address] [place] [address] [address] [place] [id number] 0 Phone: () - 05/06 Retic ulocy te count panel Retic ulocy te cellu lar hemog lobin pg 28.0 37.0 33.0 FINAL Deepthi banerjee Oncology - [facility], [address] [place] [address] [address] [place] [id number] 0 Phone: () - 05/06 CBC w/ auto diff WBC K/uL 3.0 8.9 8.4 FINAL Deepthi Clemens lavonne [facility]cology - [facility], [address] [place] [id number] 0 Phone: () - 05/06 CBC w/ auto diff HGB g/dL 11.3 15.2 13.6 FINAL Deepthi Clemens lavonne [facility], [address] [place] [id number] 0 Phone: () - 05/06 CBC w/ auto diff PLT K/uL 113.0 364.0 266 FINAL Deepthi Clemens lavonne Oncology - [facility], [address] [place] [id number] 0 Phone: () - 05/06 CBC w/ auto diff Dawna # (ANC) K/uL 1.6 6.6 3.9 FINAL Deepthi Clemens lavonne [facility], [address] [place] [address] [address] [place] [id number] 0 Phone: () - 05/06 CBC w/ auto diff Dawna % % 43.0 74.0 46.7 FINAL Deepthi banerjee Oncology - [facility], [address] [place] [address] [address] [place] [id number] 0 Phone: () - 05/06 CBC w/ auto diff IG % % 0.0 0.5 0.5 FINAL Deepthi Clemens lavonne Oncology - [facility], [address] [place] [address] [address] [place] [id number] 0 Phone: () - 05/06 CBC w/ auto diff IG # K/uL 0.0 0.03 0.04 High FINAL Deepthi banerjee [facility] - [place], [address] [place] [address] [address] [place] [id number] 0 Phone: () - 05/06 CBC w/ auto diff LY % % 14.0 41.0 44.8 High FINAL Deepthi banerjee [facility] - [place], [address] [place] [address] [address] [place] [id number] 0 Phone: () - 05/06 CBC w/ auto diff MO % % 6.0 15.0 6.2 FINAL Deepthi Eli a [facility] - [place], [address] [place] [address] [address] [place] [id number] 0 Phone: () - 05/06 CBC w/ auto diff EO % % 0.0 7.0 1.4 FINAL Deepthi Eli a [facility] - [place], [address] [place] [address] [address] [place] [id number] 0 Phone: () - 05/06 CBC w/ auto diff BA % % 0.0 2.0 0.4 FINAL Deepthi Eli a [facility] - [place], [address] [place] [address] [address] [place] [id number] 0 Phone: () - 05/06 CBC w/ auto diff LY # K/uL 0.4 3.6 3.8 High FINAL Deepthi Eli a [facility] - [place] [facility], [address] [place] [address] [address] [place] [id number] 0 Phone: () - 05/06 CBC w/ auto diff MO # K/uL 0.2 1.3 0.5 FINAL Deepthi banerjee [facility] - [place], [address] [place] [address] [address] [place] [id number] 0 Phone: () - 05/06 CBC w/ auto diff EO # K/uL 0.0 0.6 0.1 FINAL Deepthi banerjee [facility] - [place], [address] [place] [address] [address] [place] [id number] 0 Phone: () - 05/06 CBC w/ auto diff BA # K/uL 0.0 0.2 0.0 FINAL Deepthi banerjee [facility] - [place], [address] [place] [address] [address] [place] [id number] 0 Phone: () - 05/06 CBC w/ auto diff NRBC % #/100W BC 0.0 0.2 0.0 FINAL Deepthi banerjee [facility]cology - [facility], [address] [place] [address] [address] [place] [id number] 0 Phone: () - 05/06 CBC w/ auto diff RBC M/uL 3.9 5.1 4.57 FINAL Deepthi banerjee Oncology - [facility], [address] [place] [address] [address] [place] [id number] 0 Phone: () - 05/06 CBC w/ auto diff HCT % 35.0 48.0 40.7 FINAL Deepthi banerjee Oncology - [facility], [address] [place] [address] [address] [place] [id number] 0 Phone: () - 05/06 CBC w/ auto diff MCV fL 80.0 104.0 89.1 FINAL Deepthi banerjee Oncology - [facility], [address] [place] [address] [address] [place] [id number] 0 Phone: () - 05/06 CBC w/ auto diff MCH pg 26.0 35.0 29.8 FINAL Deepthi banerjee Oncology - [facility], [address] [place] [id number] Phone: () - 05/06 CBC w/ auto diff MCHC g/dL 30.0 35.0 33.4 FINAL Deepthi banerjee Oncology - [facility], [address] [place] [address] [address] [place] [id number] Phone: () - 05/06 CBC w/ auto diff MPV fL 9.5 13.4 9.3 Low FINAL Deepthi banerjee Oncology - [facility], [address] [place] [address] [address] [place] [id number] Phone: () - 05/06 CBC w/ auto diff RDW % 11.4 16.1 13.60 FINAL Deepthi banerjee Oncology - [facility], [address] [facility] [id number] Phone: () - Medications Date Name [...]
--- OUTSIDE RECORDS SUMMARY | 2025-02-07 17:49 | XMS_ITS ---
Author Name Interface, [id number] lity Address [address] [place] [address] [address] [place] [address] Organization [facility] Address [address] 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 Name Role Phone Bernabe Jang Milton Unavailable [...] Abnor mal FINAL [facility], [address] [place] [id number] 0 Phone: () - 12/14 CBC w/ auto diff WBC K/uL 3.0 8.9 3.9 FINAL [facility], [address] 200 [facility] [place] [id number] 0 Phone: () - 12/14 CBC w/ auto diff HGB g/dL 11.3 15.2 9.3 Low FINAL Mady banerjee [facility] - [place], [address] 200 [place] [id number] 0 Phone: () - 12/14 CBC w/ auto diff PLT K/uL 113.0 364.0 372 High FINAL Mady banerjee [facility] - [place], [address] [place] [address] 200 [facility] [place] [id number] 0 Phone: () - 12/14 CBC w/ auto diff Dawna # (ANC) K/uL 1.6 6.6 2.1 FINAL Mady banerjee [facility] - [place], [address] [place] [address] 200 [facility] [place] [id number] 0 Phone: () - 12/14 CBC w/ auto diff Dawna % % 43.0 74.0 54.9 FINAL Mady banerjee [facility] - [place], [address] [place] [address] 200 [facility] [place] [id number] 0 Phone: () - 12/14 CBC w/ auto diff IG % % 0.0 0.5 0.5 FINAL Mady banerjee [facility] - [place], [address] [place] [address] 200 [facility] [place] [id number] 0 Phone: () - 12/14 CBC w/ auto diff IG # K/uL 0.0 0.03 0.02 FINAL Mady banerjee [facility] - [place], [address] [place] [address] 200 [facility] [place] [id number] 0 Phone: () - 12/14 CBC w/ auto diff LY % % 14.0 41.0 26.2 FINAL Mady banerjee [facility] - [place], [address] [place] [address] 200 [place] [id number] 0 Phone: () - 12/14 CBC w/ auto diff MO % % 6.0 15.0 16.6 High FINAL Mady banerjee [facility] - [place], [address] [place] [address] 200 [facility] [place] [id number] 0 Phone: () - 12/14 CBC w/ auto diff EO % % 0.0 7.0 1.3 FINAL Mady banerjee [facility] - [place], [address] [place] [address] [address] [place] [id number] 0 Phone: () - 12/14 CBC w/ auto diff BA % % 0.0 2.0 0.5 FINAL Mady banerjee [facility] - [place], [address] [place] [address] [address] [place] [id number] 0 Phone: () - 12/14 CBC w/ auto diff LY # K/uL 0.4 3.6 1.0 FINAL Mady banerjee [facility] - [place], [address] [place] [address] [address] [place] [id number] 0 Phone: () - 12/14 CBC w/ auto diff MO # K/uL 0.2 1.3 0.6 FINAL Mady banerjee [facility] - [place], [address] [place] [address] [address] [place] [id number] 0 Phone: () - 12/14 CBC w/ auto diff EO # K/uL 0.0 0.6 0.1 FINAL Mady banerjee [facility] - [place], [address] [place] [address] [address] [place] [id number] 0 Phone: () - 12/14 CBC w/ auto diff BA # K/uL 0.0 0.2 0.0 FINAL Mady banerjee [facility] - [place], [address] [place] [address] [address] [place] [id number] 0 Phone: () - 12/14 CBC w/ auto diff NRBC % #/100W BC 0.0 0.2 0.0 FINAL Mady banerjee [facility] - [place], [address] [place] [address] [address] [place] [id number] 0 Phone: () - 12/14 CBC w/ auto diff HCT % 35.0 48.0 29.6 Low FINAL Mady banerjee [facility] - [place], [address] [place] [address] [address] [place] [id number] 0 Phone: () - 12/14 CBC w/ auto diff MCV fL 80.0 104.0 113.8 High FINAL Mady banerjee [facility] [place] [facility], [address] [place] [address] 200 [place] [id number] 0 Phone: () - 12/14 CBC w/ auto diff MCH pg 26.0 35.0 35.8 High FINAL Mady banerjee [facility] - [place] [facility], [address] 200 [place] [id number] 0 Phone: () - 12/14 CBC w/ auto diff MCHC g/dL 30.0 35.0 31.4 FINAL Mady banerjee [facility] - [place] [facility], [address] [place] [address] 200 [place] [id number] 0 Phone: () - 12/14 CBC w/ auto diff MPV fL 9.5 13.4 9.5 FINAL Mady banerjee [facility] - [place] [facility], [address] [place] [address] 200 [place] [id number] 0 Phone: () - 12/14 CBC w/ auto diff RDW % 11.4 16.1 19.70 High FINAL Mady banerjee [facility] - [place] [facility], [address] [place] [address] 200 [place] [id number] 0 Phone: () - 12/14 CBC w/ auto diff Auto CBC comme nts Slide review to follow FINAL Mady banerjee [facility] - [place] [facility], [address] [place] [address] 200 [place] [id number] 0 Phone: () - 12/14 CBC w/ auto diff RBC M/uL 3.9 5.1 2.60 Low FINAL Mady banerjee [facility] - [place] [facility], [address] [place] [address] 200 [place] [id number] 0 Phone: () - 12/28 CMP Album in g/dL 3.2 5.2 3.9 FINAL [facility] [address] [place] [id number] 0 Phone: () - 12/28 CMP Alkal ine phosp hatas e U/L 46.0 116.0 59 FINAL [facility] [address] [place] [id number] 0 Phone: () - 12/28 CMP ALT/S GPT U/L 7.0 40.0 13 FINAL Idalia Eli [address] [id number] 0 Phone: () - 12/28 CMP AST/S GOT U/L 13.0 40.0 19 FINAL Idalia banerjee [address] [id number] 0 Phone: () - 12/28 CMP BUN mg/dL 9.0 23.0 11 FINAL Idalia [address] [id number] 0 Phone: () - 12/28 CMP Calci um mg/dL 8.7 10.4 9.7 FINAL Idalia [address] [id number] 0 Phone: () - 12/28 CMP Chlor ray mmol/L 96.0 114.0 109 FINAL Idalia [address] [id number] 0 Phone: () - 12/28 CMP CO2 mmol/L 20.0 31.0 29 FINAL Idalia Clem[address] [id number] 0 Phone: () - 12/28 CMP Creat inine mg/dL 0.5 1.2 0.53 FINAL Idalia Clemens[address] [id number] 0 Phone: () - 12/28 CMP GFR estim ate ml/min /1.73m ^2 114.0 GFR is calculate d using the CKD-EPI equation. FINAL Idalia Clemens[address] [id number] 0 Phone: () - 12/28 CMP Gluco se mg/dL 73.0 126.0 117 FINAL Idalia [address] [id number] 0 Phone: () - 12/28 CMP Potas sium mmol/L 3.5 5.1 3.4 Low FINAL Idalia banerjee [address] [id number] 0 Phone: () - 12/28 CMP Sodiu m mmol/L 136.0 145.0 145 FINAL Idalia banerjee [facility], [address] [place] [address] 100 [facility] [id number] 0 Phone: () - 12/28 CMP Bilir ubin, total mg/dL 0.3 1.2 0.2 Low FINAL Idalia banerjee [address] 100 [facility] [id number] 0 Phone: () - 12/28 CMP Total prote in g/dL 5.7 8.2 5.6 Low FINAL Idalia banerjee [address] [id number] 0 Phone: () - 12/28 CBC w/ auto diff WBC K/uL 3.0 8.9 5.7 FINAL Idalia banerjee [facility] - [facility], [address] [place] [address] 200 [facility] [place] [id number] 0 Phone: () - 12/28 CBC w/ auto diff HGB g/dL 11.3 15.2 10.4 Low FINAL Idalia banerjee [facility] - [facility], [address] [place] [address] 200 [facility] [place] [id number] 0 Phone: () - 12/28 CBC w/ auto diff PLT K/uL 113.0 364.0 312 FINAL Idalia banerjee [facility] - [facility], [address] [place] [address] 200 [facility] [place] [id number] 0 Phone: () - 12/28 CBC w/ auto diff Dawna # (ANC) K/uL 1.6 6.6 4.1 FINAL [facility], [address] [place] [address] 200 [facility] [place] [id number] 0 Phone: () - 12/28 CBC w/ auto diff Dawna % % 43.0 74.0 72.5 FINAL Idalia banerjee [facility] - [facility], [address] [place] [address] 200 [place] [id number] 0 Phone: () - 12/28 CBC w/ auto diff IG % % 0.0 0.5 0.4 FINAL Idalia banerjee [facility] - [place], [address] 200 [facility] [id number] 0 Phone: () - 12/28 CBC w/ auto diff IG # K/uL 0.0 0.03 0.02 FINAL Idalia banerjee [facility] - [place], [address] 200 [facility] [id number] 0 Phone: () - 12/28 CBC w/ auto diff LY % % 14.0 41.0 14.4 FINAL Idalia banerjee [facility] - [place], [address] [place] [address] 200 [facility] [id number] 0 Phone: () - 12/28 CBC w/ auto diff MO % % 6.0 15.0 9.6 FINAL Idalia banerjee [facility] - [place], [address] [place] [address] 200 [facility] [id number] 0 Phone: () - 12/28 CBC w/ auto diff EO % % 0.0 7.0 2.6 FINAL Idalia banerjee [facility] - [place], [address] [place] [address] 200 [facility] [id number] 0 Phone: () - 12/28 CBC w/ auto diff BA % % 0.0 2.0 0.5 FINAL Idalia banerjee [facility] - [place], [address] [place] [address] 200 [facility] [id number] 0 Phone: () - 12/28 CBC w/ auto diff LY # K/uL 0.4 3.6 0.8 FINAL Idalia banerjee [facility] - [place], [address] [place] [address] 200 [facility] [id number] 0 Phone: () - 12/28 CBC w/ auto diff MO # K/uL 0.2 1.3 0.6 FINAL Idalia banerjee [facility] - [place], [address] [place] [address] 200 [facility] [id number] 0 Phone: () - 12/28 CBC w/ auto diff EO # K/uL 0.0 0.6 0.2 FINAL Idalia banerjee [facility] - [place], [address] [place] [address] [address] [place] [id number] 0 Phone: () - 12/28 CBC w/ auto diff BA # K/uL 0.0 0.2 0.0 FINAL Idalia banerjee [facility] - [place], [address] [place] [address] [address] [place] [id number] 0 Phone: () - 12/28 CBC w/ auto diff NRBC % #/100W BC 0.0 0.2 0.0 FINAL Idalia banerjee [facility] - [place], [address] [place] [address] [address] [place] [id number] 0 Phone: () - 12/28 CBC w/ auto diff RBC M/uL 3.9 5.1 2.97 Low FINAL Idalia banerjee [facility] - [place], [address] [place] [address] [address] [place] [id number] 0 Phone: () - 12/28 CBC w/ auto diff HCT % 35.0 48.0 32.3 Low FINAL Idalia banerjee [facility] - [place], [address] [place] [address] [address] [place] [id number] 0 Phone: () - 12/28 CBC w/ auto diff MCV fL 80.0 104.0 108.8 High FINAL Idalia banerjee [facility] - [place], [address] [place] [address] [address] [place] [id number] 0 Phone: () - 12/28 CBC w/ auto diff MCH pg 26.0 35.0 35.0 FINAL Idalia banerjee [facility] - [place], [address] [place] [address] [address] [place] [id number] 0 Phone: () - 12/28 CBC w/ auto diff MCHC g/dL 30.0 35.0 32.2 FINAL Idalia banerjee [facility] - [place], [address] [place] [address] [address] [place] [id number] 0 Phone: () - 12/28 CBC w/ auto diff MPV fL 9.5 13.4 9.9 FINAL Idalia banerjee [facility] - [place], [address] [place] [address] [address] [place] [id number] 0 Phone: () - 12/28 CBC w/ auto diff RDW % 11.4 16.1 15.20 FINAL Idalia banerjee [facility] - [place], [address] [place] [address] [address] [place] [id number] 0 Phone: () - 12/28 iSTAT creat inine panel Creat inine , iSTAT mg/dl 0.6 1.3 0.5 Low FINAL Idalia banerjee [facility] - [place], [address] [place] [address] [address] [place] [id number] 0 Phone: () - 12/28 iSTAT creat inine panel GFR estim ate ml/min /1.73m ^2 116.2 GFR is calculate d using the CKD-EPI equation. FINAL Idalia abnerjee [facility] - [place], [address] [place] [address] [address] [place] [id number] 0 Phone: () - 05/01 CBC w/ auto diff PLT K/uL 113.0 364.0 257 FINAL Asim banerjee [facility] - [place], [address] [place] [address] [address] [place] [id number] 0 Phone: () - 05/01 CBC w/ auto diff Dawna # (ANC) K/uL 1.6 6.6 2.2 FINAL Asim banerjee [facility] - [place], [address] [place] [address] [address] [place] [id number] 0 Phone: () - 05/01 CBC w/ auto diff Dawna % % 43.0 74.0 46.0 FINAL Asim banerjee [facility] - [place], [address] [place] [address] [address] [place] [id number] 0 Phone: () - 05/01 CBC w/ auto diff IG % % 0.0 0.5 0.4 FINAL Asim banerjee [facility] - [place], [address] [place] [address] [address] [place] [id number] 0 Phone: () - 05/01 CBC w/ auto diff IG # K/uL 0.0 0.03 0.02 FINAL Asim banerjee [facility] - [place], [address] [place] [address] [address] [place] [id number] 0 Phone: () - 05/01 CBC w/ auto diff LY % % 14.0 41.0 38.7 FINAL Asim banerjee [facility] - [place], [address] [place] [address] [address] [place] [id number] 0 Phone: () - 05/01 CBC w/ auto diff MO % % 6.0 15.0 10.0 FINAL Asim banerjee [facility] - [place], [address] [place] [address] [address] [place] [id number] 0 Phone: () - 05/01 CBC w/ auto diff EO % % 0.0 7.0 4.3 FINAL Asim banerjee [facility] - [place], [address] [place] [address] [address] [place] [id number] 0 Phone: () - 05/01 CBC w/ auto diff BA % % 0.0 2.0 0.6 FINAL Asim banerjee [facility] - [place], [address] [place] [address] [address] [place] [id number] 0 Phone: () - 05/01 CBC w/ auto diff LY # K/uL 0.4 3.6 1.9 FINAL Asim banerjee [facility] - [place], [address] [place] [address] [address] [place] [id number] 0 Phone: () - 05/01 CBC w/ auto diff MO # K/uL 0.2 1.3 0.5 FINAL Asim banerjee [facility] - [place], [address] [place] [address] [address] [place] [id number] 0 Phone: () - 05/01 CBC w/ auto diff EO # K/uL 0.0 0.6 0.2 FINAL Asim banerjee [facility] - [place], [address] [place] [address] [address] [place] [id number] 0 Phone: () - 05/01 CBC w/ auto diff BA # K/uL 0.0 0.2 0.0 FINAL Asim [facility] - [place], [address] [place] [address] [address] [place] [id number] 0 Phone: () - 05/01 CBC w/ auto diff NRBC % #/100W BC 0.0 0.2 0.0 FINAL Asim banerjee [facility] - [place], [address] [place] [address] 200 [place] [id number] 0 Phone: () - 05/01 CBC w/ auto diff RBC M/uL 3.9 5.1 4.01 FINAL Asim banerjee [facility] - [place], [address] [place] [address] 200 [place] [id number] 0 Phone: () - 05/01 CBC w/ auto diff HCT % 35.0 48.0 36.8 FINAL Asim banerjee [facility] - [place] [facility], [address] [place] [id number] 0 Phone: () - 05/01 CBC w/ auto diff MCV fL 80.0 104.0 91.8 FINAL Asim banerjee [facility] - [place], [address] [place] [address] 200 [place] [id number] 0 Phone: () - 05/01 CBC w/ auto diff MCH pg 26.0 35.0 31.2 FINAL Asim banerjee [facility] - [place], [address] [place] [address] 200 [place] [id number] 0 Phone: () - 05/01 CBC w/ auto diff MCHC g/dL 30.0 35.0 34.0 FINAL Asim banerjee [facility] - [place], [address] [place] [address] 200 [place] [id number] 0 Phone: () - 05/01 CBC w/ auto diff MPV fL 9.5 13.4 9.1 Low FINAL Asim banerjee [facility] - [place] [facility], [address] [place] [address] 200 [place] [id number] 0 Phone: () - 05/01 CBC w/ auto diff RDW % 11.4 16.1 13.90 FINAL Asim [facility]er[facility] - [place], [address] [place] [address] 200 [place] [id number] 0 Phone: () - 05/01 CBC w/ auto diff Auto CBC comme nts Slide review to follow FINAL Asim banerjee [facility] - [place] [facility], [address] [place] [address] [address] [place] [id number] 0 Phone: () - 05/01 CBC w/ auto diff WBC K/uL 3.0 8.9 4.9 FINAL Asim banerjee [facility] - [place] [facility], [address] [place] [address] [address] [place] [id number] 0 Phone: () - 05/01 CBC w/ auto diff HGB g/dL 11.3 15.2 12.5 FINAL Asim banerjee [facility] - [place] [facility], [address] [place] [address] [address] [place] [id number] 0 Phone: () - 05/01 Smear revie w panel CBC Smear revie w comme nts Large and-or giant platele ts present Atypica l (Reacti ve and/or Variant ) Lymphs present Abnor mal FINAL Asim [facility]er[facility] - [place] [facility], [address] [place] [address] [address] [place] [id number] 0 Phone: () - 05/01 Retic ulocy te count panel Retic ulocy te, absol [place] M/uL 0.02 0.08 0.08 FINAL Asim banerjee [facility] - [place] [facility], [address] [place] [address] [address] [place] [id number] 0 Phone: () - 05/01 Retic ulocy te count panel Retic ulocy te count % 0.4 1.6 2.07 High FINAL Asim [facility]erjee [facility] - [place] [facility], [address] [place] [address] [address] [place] [id number] 0 Phone: () - 05/01 Retic ulocy te count panel Immat ure retic ulocy te fract ion, % % 0.0 16.5 10.10 FINAL Asim banerjee [facility] - [place] [facility], [address] [place] [address] [address] [place] [id number] 0 Phone: () - 05/01 Retic ulocy te count panel Retic ulocy te cellu lar hemog lobin pg 28.0 37.0 36.5 FINAL Asim banerjee [facility] - [place] [facility], [address] [place] [address] [address] [place] [id number] 0 Phone: () - 05/01 Path perip heral blood slide revie w panel Patho logy/ Cytol ogy Morph ology SEE RESULTS BELOW CASE REPORTSpe cial Hematolog y Report Case: [id number] 6Authoriz ing Provider: Asim Cornelius MD Collected :05/01/20 20 1447Order ing Location: [facility] Received: 0 1212Patho logist: [...] iagnosed by left neck lymph node biopsy ([id number] , 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 Staging bonemarro w biopsy [...] specimens .ADDITION AL INFORMATI ONInterpr eted at [facility] - [address], [facility] [place], [place] [address]Anaq Performed by:[facility] - [facility] [place], [place] [address]Lvbn e : FINAL Asim Cornelius 05/01 CMP Album in g/dL 3.2 5.2 4.4 FINAL Asim [address] [place] [id number] 0 Phone: () - 05/01 CMP Alkal ine phosp hatas e U/L 46.0 116.0 76 FINAL Asim Clemens a [address] [place] [id number] 0 Phone: () - 05/01 CMP ALT/S GPT U/L 7.0 40.0 12 FINAL Asim Clemensot a [address] [place] [id number] 0 Phone: () - 05/01 CMP AST/S GOT U/L 13.0 40.0 16 FINAL Asim Clemensot a [address] [place] [id number] 0 Phone: () - 05/01 CMP BUN mg/dL 9.0 23.0 19 FINAL Asim Clemensot a [address] [place] [id number] 0 Phone: () - 05/01 CMP Calci um mg/dL 8.7 [address] [id number] 0 Phone: () - 05/01 CMP Chlor ray mmol/L 96.0 114.[address] [id number] 0 Phone: () - 05/01 CMP CO2 mmol/L 20.0 31.[address] [id number] 0 Phone: () - 05/01 CMP Creat inine mg/dL 0.5 [address] [id number] 0 Phone: () - 05/01 CMP GFR estim ate ml/min /1.73m ^2 97.0 GFR is calculate d using the CKD-EPI equation. [address] [id number] 0 Phone: () - 05/01 CMP Gluco se mg/dL 73.0 126.0 [address] [id number] 0 Phone: () - 05/01 CMP Potas sium mmol/L 3.5 [address] [id number] 0 Phone: () - 05/01 CMP Sodiu m mmol/L 136.0 145.[address] [id number] 0 Phone: () - 05/01 CMP Bilir ubin, total mg/dL 0.3 1.2 0.[address] [id number] 0 Phone: () - 05/01 CMP Total prote in g/dL 5.7 8.2 6.1 FINAL Asim Eli a [facility] - [place], [address] [facility] [address] [place] [id number] 0 Phone: () - 06/19 Retic ulocy te count panel Retic ulocy te, absol [place] M/uL 0.02 0.08 0.08 FINAL Asim banerjee [facility] - [place] [facility], [address] [place] [address] [address] [place] [id number] 0 Phone: () - 06/19 Retic ulocy te count panel Retic ulocy te count % 0.4 1.6 1.75 High FINAL Asim banerjee [facility] - [place] [facility], [address] [place] [address] [address] [place] [id number] 0 Phone: () - 06/19 Retic ulocy te count panel Immat ure retic ulocy te fract ion, % % 0.0 16.5 10.80 FINAL Asim banerjee [facility] - [place] [facility], [address] [place] [address] [address] [place] [id number] 0 Phone: () - 06/19 Retic ulocy te count panel Retic ulocy te cellu lar hemog lobin pg 28.0 37.0 34.6 FINAL Asim banerjee [facility] - [place] [facility], [address] [place] [address] [address] [place] [id number] 0 Phone: () - 06/19 CBC w/ auto diff WBC K/uL 3.0 8.9 8.7 FINAL Asim banerjee [facility] - [place] [facility], [address] [place] [address] [address] [place] [id number] 0 Phone: () - 06/19 CBC w/ auto diff HGB g/dL 11.3 15.2 14.2 FINAL Asim banerjee [facility] - [place] [facility], [address] [place] [address] [address] [place] [id number] 0 Phone: () - 06/19 CBC w/ auto diff PLT K/uL 113.0 364.0 282 FINAL Asim banerjee [facility] - [place] [facility], [address] [place] [address] [address] [place] [id number] 0 Phone: () - 06/19 CBC w/ auto diff Dawna # (ANC) K/uL 1.6 6.6 4.9 FINAL Asim Clemensot a [facility] - [place], [address] [place] [address] [address] [place] [id number] 0 Phone: () - 06/19 CBC w/ auto diff Dawna % % 43.0 74.0 56.8 FINAL Asimmatt Clemensot a [facility] - [place], [address] [place] [address] [address] [place] [id number] 0 Phone: () - 06/19 CBC w/ auto diff IG % % 0.0 0.5 0.5 FINAL Asimmatt Clemensot a [facility] - [place], [address] [place] [address] [address] [place] [id number] 0 Phone: () - 06/19 CBC w/ auto diff IG # K/uL 0.0 0.03 0.04 High FINAL Asmi Clemensot a [facility] - [place], [address] [place] [address] [address] [place] [id number] 0 Phone: () - 06/19 CBC w/ auto diff LY % % 14.0 41.0 33.4 FINAL Asim Clemensot [facility] - [place], [address] [place] [address] [address] [place] [id number] 0 Phone: () - 06/19 CBC w/ auto diff MO % % 6.0 15.0 7.0 FINAL Asim Clemensot [facility] - [place], [address] [place] [address] [address] [place] [id number] 0 Phone: () - 06/19 CBC w/ auto diff EO % % 0.0 7.0 1.8 FINAL Asimmatt Clemensot a [facility] - [place], [address] [place] [address] [address] [place] [id number] 0 Phone: () - 06/19 CBC w/ auto diff BA % % 0.0 2.0 0.5 FINAL Asimmatt Clemensot a [facility] - [place], [address] [place] [address] [address] [place] [id number] 0 Phone: () - 06/19 CBC w/ auto diff LY # K/uL 0.4 3.6 2.9 FINAL Asimmatt [facility] [place] [facility] [place], [address] [place] [address] [address] [place] [id number] 0 Phone: () - 06/19 CBC w/ auto diff MO # K/uL 0.2 1.3 0.6 FINAL Asim banerjee [facility] - [place], [address] [place] [address] [address] [place] [id number] 0 Phone: () - 06/19 CBC w/ auto diff EO # K/uL 0.0 0.6 0.2 FINAL Asim banerjee [facility] - [place], [address] [place] [address] [address] [place] [id number] 0 Phone: () - 06/19 CBC w/ auto diff BA # K/uL 0.0 0.2 0.0 FINAL Asim [facility]erjee [facility] - [place], [address] [place] [address] [address] [place] [id number] 0 Phone: () - 06/19 CBC w/ auto diff NRBC % #/100W BC 0.0 0.2 0.0 FINAL [facility] [place], [address] [place] [address] [address] [place] [id number] Phone: () - 06/19 CBC w/ auto diff RBC M/uL 3.9 5.1 4.67 FINAL [facility] [place], [address] [place] [address] [address] [place] [id number] Phone: () - 06/19 CBC w/ auto diff HCT % 35.0 48.0 41.7 FINAL [facility] [place], [address] [place] [address] [address] [place] [id number] 0 Phone: () - 06/19 CBC w/ auto diff MCV fL 80.0 104.0 89.3 FINAL [facility] [place], [address] [place] [address] [address] [place] [id number] 0 Phone: () - 06/19 CBC w/ auto diff MCH pg 26.0 35.0 30.4 FINAL [facility] [place], [address] [place] [address] [address] [place] [id number] Phone: () - 06/19 CBC w/ auto diff MCHC g/dL 30.0 35.0 34.1 FINAL [facility], [address] [place] [address] [address] [place] [id number] 0 Phone: () - 06/19 CBC w/ auto diff MPV fL 9.5 13.4 8.8 Low FINAL [facility], [address] [place] [address] [address] [place] [id number] 0 Phone: () - 06/19 CBC w/ auto diff RDW % 11.4 16.1 13.10 FINAL [facility], [address] [place] [address] [address] [place] [id number] 0 Phone: () - 06/19 LDH panel LDH U/L 120.0 246.0 246 FINAL [facility], [address] [place] [id number] Phone: () - 06/19 CMP Album in g/dL 3.2 5.2 4.6 FINAL Asim banerjee [facility], [address] [facility] [phone] 0 Phone: () - 06/19 CMP Alkal ine phosp hatas e U/L 46.0 116.0 91 FINAL Aism banerjee [facility], [address] [facility] [phone] 0 Phone: () - 06/19 CMP ALT/S GPT U/L 7.0 40.0 27 FINAL Asim Clemens [facility], [address] [facility] [id number] [phone] Phone: () - 06/19 CMP AST/S GOT U/L 13.0 40.0 34 FINAL Asim banerjee [facility], [address] [facility] [phone] 0 Phone: () - 06/19 CMP BUN mg/dL 9.0 23.0 11 FINAL Asim Cornelius [facility], [address] [facility] 100 [facility] [id number] 0 Phone: () - 06/19 CMP Calci um mg/dL 8.7 10.4 9.4 [facility], [address] [facility] 100 [facility] [phone] 0 Phone: () - 06/19 CMP Chlor ray mmol/L 96.0 114.0 107 [facility] Asim Cornelius [place] [address] [address] [facility] 100 [facility] [phone] 0 Phone: () - 06/19 CMP CO2 [...] end of the 96 hour stability window. [facility] Asim Cornelius [facility], [facility] [address] [phone] 0 Phone: () - 06/19 CMP Creat inine mg/dL 0.5 1.2 0.68 [facility] [place] [address] [phone] 0 Phone: () - 06/19 CMP GFR estim ate ml/min /1.73m ^2 103.9 GFR is calculate d using the CKD-EPI equation. [facility] Asim Cornelius [facility], [facility] N [address] [phone] 0 Phone: () - 06/19 CMP Gluco se mg/dL 73.0 126.0 95 [facility] [place] [address] [address] [facility] 100 [facility] [phone] 0 Phone: () - 06/19 CMP Potas sium mmol/L 3.5 5.1 4.1 [facility] [place] [address] [phone] 0 Phone: () - 06/19 CMP Sodiu m mmol/L 136.0 145.0 140 FINAL Asim Clemensot [facility] [place], [address] [facility] [phone] 0 Phone: () - 06/19 CMP Bilir ubin, total mg/dL 0.3 1.2 0.2 Low FINAL Asim Cornelius [place] [facility] [place], [address] [facility] [phone] 0 Phone: () - 06/19 CMP Total prote in g/dL 5.7 8.2 6.9 FINAL Asim Clemensot [facility] [place], [address] [facility] [phone] 0 Phone: () - 06/19 Path perip heral blood slide revie w panel Patho logy/ Cytol ogy Morph ology SEE RESULTS BELOW CASE REPORTSpe cial Hematolog y Report Case: [id number] ing Provider: Asim Cornelius MD Collected :06/19/20 21 1340Order ing Location: [facility] Received: 1 1734Patho logist: Elvie Hernández MDSpecime n: BloodFINA L DIAGNOSIS PERIPHERA L BLOOD:1. Negative for circulati ng blasts2. Within normal limitsEle ctronical ly signed by Elvie Hernández MD on 06/20/2021 at 1:03 PMCOMMENT This case was also reviewed by Mis hill [place], MS ([facility]CL INICAL INFORMATI ONThe patient is a 46-year-o ld female with a history of acute lymphoid leukemia. 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 Staging bone marrow biopsy was negative forlympho ma ([id number]) . Her most recent periphera l blood morpholog y 2019 ([id number] ,05/01/2020 ) was negative for circulati ng [...] blood smear.ADD ITIONAL INFORMATI ONInterpr eted at [facility], [facility] - [address], [place], [place] [address]Uoer Performed by:[facility] - [facility] [place] [address]Ccue e : FINAL Asim Cornelius 01/19 [facility] [place] See neurology technologist d 05/01 [facility] lab See neurology technologist d 05/06 LDH panel LDH U/L 120.0 246.0 191 FINAL Deepthi Clemensot [facility] [place], [address] [facility] [id number] 0 Phone: () - 05/06 CMP Album in g/dL 3.2 5.2 4.7 FINAL [facility], [address] [facility] [address] [phone] 0 Phone: () - 05/06 CMP Alkal ine phosp hatas e U/L 46.0 116.0 73 FINAL Deepthi Dodge [place] [address] [address] [facility] [address] [phone] 0 Phone: () - 05/06 CMP ALT/S GPT U/L 7.0 40.0 19 FINAL Deepthi Dodge [place] [address] [address] [facility] [address] [phone] 0 Phone: () - 05/06 CMP AST/S GOT U/L 13.0 40.0 21 FINAL Deepthi [place] [address] [address] [facility] [address] [phone] 0 Phone: () - 05/06 CMP BUN mg/dL 9.0 23.0 16.0 FINAL Deepthi Dodge [facility] [address] [facility] [address] [phone] 0 Phone: () - 05/06 CMP Calci um mg/dL 8.7 10.4 9.8 FINAL Deepthi Dodge [place] [address] [address] [facility] [address] [phone] 0 Phone: () - 05/06 CMP Chlor ray mmol/L 96.0 114.0 107 FINAL Deepthi Dodge [facility] [address] [facility] [address] [phone] 0 Phone: () - 05/06 CMP CO2 [...] 96 hour stability window. FINAL Deepthi Dodge [place] [address] [phone] 0 Phone: () - 05/06 CMP Creat inine mg/dL 0.5 1.2 0.80 FINAL Deepthi Clemens [place] [address] [phone] 0 Phone: () - 05/06 CMP GFR estim ate ml/min /1.73m ^2 90.1 GFR is calculate d using the CKD-EPI equation. FINAL Deep[place] [address] [phone] 0 Phone: () - 05/06 CMP Gluco se mg/dL 73.0 126.0 128 High FINAL [place] [address] [phone] 0 Phone: () - 05/06 CMP Potas sium mmol/L 3.5 5.1 3.9 FINAL [place] [address] [phone] 0 Phone: () - 05/06 CMP Sodiu m mmol/L 136.0 145.0 142 FINAL Deepthi Clemens [place] [address] [phone] 0 Phone: () - 05/06 CMP Bilir ubin, total mg/dL 0.3 1.2 0.2 Low FINAL [place] [address] [phone] 0 Phone: () - 05/06 CMP Total prote in g/dL 5.7 8.2 7.1 FINAL Deepthi Dodge [place] [address] [phone] 0 Phone: () - 05/06 Retic ulocy te count panel Retic ulocy te, absol [place] M/uL 0.02 0.08 0.07 [facility]AL [facility], [address] [facility] [phone] 0 Phone: () - 05/06 Retic ulocy te count panel Retic ulocy te count % 0.4 1.6 1.60 FINAL Deepthi banerjee [facility] - [facility], [address] 200 [facility] [place] [phone] 0 Phone: () - 05/06 Retic ulocy te count panel Immat ure retic ulocy te fract ion, % % 0.0 16.5 9.70 FINAL Deepthi banerjee [facility] [place] [facility], [address] 200 [facility] [place] [phone] 0 Phone: () - 05/06 Retic ulocy te count panel Retic ulocy te cellu lar hemog lobin pg 28.0 37.0 33.0 FINAL Deepthi banerjee [facility], [address] [place] [address] 200 [facility] [place] [phone] 0 Phone: () - 05/06 CBC w/ auto diff WBC K/uL 3.0 8.9 8.4 FINAL Deepthi banerjee [facility], [address] [place] [address] 200 [facility] [place] [phone] 0 Phone: () - 05/06 CBC w/ auto diff HGB g/dL 11.3 15.2 13.6 FINAL Deepthi banerjee [facility], [address] [place] [address] 200 [facility] [place] [phone] 0 Phone: () - 05/06 CBC w/ auto diff PLT K/uL 113.0 364.0 266 FINAL Deepthi banerjee [facility], [address] [place] [address] 200 [facility] [place] [phone] 0 Phone: () - 05/06 CBC w/ auto diff Dawna # (ANC) K/uL 1.6 6.6 3.9 FINAL Deepthi banerjee [facility], [address] [place] [address] 200 [facility] [place] [phone] 0 Phone: () - 05/06 CBC w/ auto diff Dawna % % 43.0 74.0 46.7 FINAL Deepthi Clemens [place] [facility] [place], [address] [place] [address] 200 [place] [phone] 0 Phone: () - 05/06 CBC w/ auto diff IG % % 0.0 0.5 0.5 FINAL Deepthi banerjee [facility] [place], [address] [place] [address] 200 [place] [phone] 0 Phone: () - 05/06 CBC w/ auto diff IG # K/uL 0.0 0.03 0.04 High FINAL Deepthi banerjee [facility] [place], [address] [place] [address] 200 [place] [phone] 0 Phone: () - 05/06 CBC w/ auto diff LY % % 14.0 41.0 44.8 High FINAL Deepthi banerjee [facility] - [place] [facility], [address] [place] [address] 200 [place] [phone] 0 Phone: () - 05/06 CBC w/ auto diff MO % % 6.0 15.0 6.2 FINAL Deepthi banerjee [facility] [place], [address] [place] [address] 200 [place] [phone] 0 Phone: () - 05/06 CBC w/ auto diff EO % % 0.0 7.0 1.4 FINAL Deepthi banerjee [facility] [place], [address] [place] [address] 200 [place] [phone] 0 Phone: () - 05/06 CBC w/ auto diff BA % % 0.0 2.0 0.4 FINAL Deepthi banerjee [facility] [place], [address] [place] [address] 200 [place] [phone] 0 Phone: () - 05/06 CBC w/ auto diff LY # K/uL 0.4 3.6 3.8 High FINAL Deepthi banerjee [facility] [place] [facility], [address] [place] [address] [address] [place] [phone] 0 Phone: () - 05/06 CBC w/ auto diff MO # K/uL 0.2 1.3 0.5 FINAL Deepthi banerjee [facility] [place], [address] [place] [address] [address] [place] [phone] 0 Phone: () - 05/06 CBC w/ auto diff EO # K/uL 0.0 0.6 0.1 FINAL Deepthi banerjee [facility] - [place] [facility], [address] [place] [address] [address] [place] [id number] 0 Phone: () - 05/06 CBC w/ auto diff BA # K/uL 0.0 0.2 0.0 FINAL Deepthi banerjee [facility] - [place] [facility], [address] [place] [address] [address] [place] [phone] 0 Phone: () - 05/06 CBC w/ auto diff NRBC % #/100W BC 0.0 0.2 0.0 FINAL Deepthi banerjee [facility] - [place] [facility], [address] [place] [address] [address] [place] [phone] 0 Phone: () - 05/06 CBC w/ auto diff RBC M/uL 3.9 5.1 4.57 FINAL Deepthi banerjee [facility] - [place] [facility], [address] [place] [address] [address] [place] [phone] 0 Phone: () - 05/06 CBC w/ auto diff HCT % 35.0 48.0 40.7 FINAL Deepthi banerjee [facility] - [place] [facility], [address] [place] [address] [address] [place] [id number] 0 Phone: () - 05/06 CBC w/ auto diff MCV fL 80.0 104.0 89.1 FINAL Deepthi banerjee [facility] - [place] [facility], [address] [place] [address] [address] [place] [phone] 0 Phone: () - 05/06 CBC w/ auto diff MCH pg 26.0 35.0 29.8 FINAL Deepthi banerjee [facility] - [place] [facility], [address] [place] [address] [address] [place] [id number] 0 Phone: () - 05/06 CBC w/ auto diff MCHC g/dL 30.0 35.0 33.4 FINAL Deepthi banerjee [facility] - [place] [facility], [address] [place] [address] [address] [place] [phone] 0 Phone: () - 05/06 CBC w/ auto diff MPV fL 9.5 13.4 9.3 Low FINAL Deepthi banerjee On[facility], [address] [place] [address] 200 [facility] [phone] 0 Phone: () - 05/06 CBC w/ auto diff RDW % 11.4 16.1 13.60 FINAL Deepthi banerjee On[facility], [address] 200 [facility] [phone] 0 Phone: () - Medications Date Name [...]
--- OUTSIDE RECORDS SUMMARY | 2025-02-07 17:49 | XMS_ITS ---
Author Name Interface, [id number] lity Address [address] [place] [address] [address] [address] [facility] Address [address] [facility] [address] [place] [address] Care Team Providers Care Industrial Analyst Name Role Phone Deepthi Dodge Unavailable Unavailable [...] 246.0 191 FINAL Deepthi banerjee [facility] - [place], [address] [facility] [address] [facility] [phone] 0 Phone: () - 05/06 CBC w/ auto diff WBC K/uL 3.0 8.9 8.4 FINAL Deepthi banerjee Oncology - [facility], [address] [place] [address] [address] [facility] [id number] 0 Phone: () - 05/06 CBC w/ auto diff HGB g/dL 11.3 15.2 13.6 FINAL Deepthi banerjee [facility] - [place], [address] [place] [address] [address] [place] [id number] 0 Phone: () - 05/06 CBC w/ auto diff PLT K/uL 113.0 364.0 266 FINAL Deepthi banerjee [facility] - [place], [address] [place] [address] [address] [place] [id number] 0 Phone: () - 05/06 CBC w/ auto diff Dawna # (ANC) K/uL 1.6 6.6 3.9 FINAL Deepthi banerjee [facility] - [place], [address] [place] [address] [address] [place] [id number] 0 Phone: () - 05/06 CBC w/ auto diff Dawna % % 43.0 74.0 46.7 FINAL Deepthi banerjee [facility] - [place], [address] [place] [address] [address] [place] [phone] 0 Phone: () - 05/06 CBC w/ auto diff IG % % 0.0 0.5 0.5 FINAL Deepthi banerjee [facility] - [place], [address] [place] [address] [address] [place] [id number] 0 Phone: () - 05/06 CBC w/ auto diff IG # K/uL 0.0 0.03 0.04 High FINAL Deepthi banerjee [facility] - [place], [address] [place] [address] [address] [place] [id number] 0 Phone: () - 05/06 CBC w/ auto diff LY % % 14.0 41.0 44.8 High FINAL Deepthi banerjee [facility] - [place], [address] [place] [address] [address] [place] [id number] 0 Phone: () - 05/06 CBC w/ auto diff MO % % 6.0 15.0 6.2 FINAL Deepthi banerjee [facility] - [place], [address] [place] [address] [address] [place] [id number] 0 Phone: () - 05/06 CBC w/ auto diff EO % % 0.0 7.0 1.4 FINAL Deepthi banerjee [facility] - [place], [address] [place] [id number] 0 Phone: () - 05/06 CBC w/ auto diff BA % % 0.0 2.0 0.4 FINAL Deepthi banerjee [facility] - [place] [facility], [address] [place] [address] [address] [place] [id number] 0 Phone: () - 05/06 CBC w/ auto diff LY # K/uL 0.4 3.6 3.8 High FINAL Deepthi banerjee [facility] - [place] [facility], [address] [place] [address] [address] [place] [id number] 0 Phone: () - 05/06 CBC w/ auto diff MO # K/uL 0.2 1.3 0.5 FINAL Deepthi banerjee [facility] - [place] [facility], [address] [place] [address] [address] [place] [id number] 0 Phone: () - 05/06 CBC w/ auto diff EO # K/uL 0.0 0.6 0.1 FINAL Deepthi banerjee [facility] - [place] [facility], [address] [place] [address] [address] [place] [id number] 0 Phone: () - 05/06 CBC w/ auto diff BA # K/uL 0.0 0.2 0.0 FINAL Deepthi banerjee [facility] - [place] [facility], [address] [place] [address] [address] [place] [id number] 0 Phone: () - 05/06 CBC w/ auto diff NRBC % #/100W BC 0.0 0.2 0.0 FINAL Deepthi banerjee [facility] - [place] [facility], [address] [place] [address] [address] [place] [id number] 0 Phone: () - 05/06 CBC w/ auto diff RBC M/uL 3.9 5.1 4.57 FINAL Deepthi banerjee [facility] - [place] [facility], [address] [place] [address] [address] [place] [id number] 0 Phone: () - 05/06 CBC w/ auto diff HCT % 35.0 48.0 40.7 FINAL Deepthi banerjee [facility] - [place] [facility], [address] [place] [address] 200 [facility] [place] [id number] 0 Phone: () - 05/06 CBC w/ auto diff MCV fL 80.0 104.0 89.1 FINAL Deepthi banerjee [facility] - [place], [address] [place] [address] [address] [place] [id number] 0 Phone: () - 05/06 CBC w/ auto diff MCH pg 26.0 35.0 29.8 FINAL Deepthi banerjee [facility] - [place] [facility], [address] [place] [address] 200 [facility] [place] [id number] 0 Phone: () - 05/06 CBC w/ auto diff MCHC g/dL 30.0 35.0 33.4 FINAL Deepthi banerjee [facility] - [place] [facility], [address] [place] [address] 200 [facility] [place] [id number] 0 Phone: () - 05/06 CBC w/ auto diff MPV fL 9.5 13.4 9.3 Low FINAL Deepthi banerjee [facility] - [place] [facility], [address] [place] [address] 200 [facility] [place] [id number] 0 Phone: () - 05/06 CBC w/ auto diff RDW % 11.4 16.1 13.60 FINAL Deepthi banerjee [facility] - [place] [facility], [address] [place] [address] 200 [facility] [place] [id number] 0 Phone: () - 05/06 Retic ulocy te count panel Retic ulocy te, absol bc M/uL 0.02 0.08 0.07 FINAL Deepthi banerjee [facility] - [place] [facility], [address] [place] [address] 200 [place] [phone] 0 Phone: () - 05/06 Retic ulocy te count panel Retic ulocy te count % 0.4 1.6 1.60 FINAL Deepthi banerjee [facility] - [place] [facility], [address] [place] [address] [address] [place] [id number] 0 Phone: () - 05/06 Retic ulocy te count panel Immat ure retic ulocy te fract ion, % % 0.0 16.5 9.70 FINAL Deepthi banerjee [facility], [address] [place] [id number] 0 Phone: () - 05/06 Retic ulocy te count panel Retic ulocy te cellu lar hemog lobin pg 28.0 37.0 33.0 FINAL Deepthi Clemens [place] [facility], [address] [place] [id number] 0 Phone: () - 05/06 CMP Album in g/dL 3.2 5.2 4.7 FINAL [place] [address] [address] [facility] [address] [place] [address] [phone] 0 Phone: () - 05/06 CMP Alkal ine phosp hatas e U/L 46.0 116.0 73 FINAL Deepthi Dodge [place] [address] [phone] 0 Phone: () - 05/06 CMP ALT/S GPT U/L 7.0 40.0 19 FINAL [place] [address] [phone] 0 Phone: () - 05/06 CMP AST/S GOT U/L 13.0 40.0 21 FINAL [place] [address] [id number] 0 Phone: () - 05/06 CMP BUN mg/dL 9.0 23.0 16.0 FINAL [place] [address] [id number] 0 Phone: () - 05/06 CMP Calci um mg/dL 8.7 10.4 9.8 FINAL [place] [address] [phone] 0 Phone: () - 05/06 CMP Chlor ray mmol/L 96.0 114.0 107 FINAL Deepthi Dodge [place] [address] [phone] 0 Phone: () - 05/06 CMP CO2 [...] 96 hour stability window. FINAL Deepthi banerjee [place] [address] [phone] 0 Phone: () - 05/06 CMP Creat inine mg/dL 0.5 1.2 0.80 FINAL [place] [address] [id number] 0 Phone: () - 05/06 CMP GFR estim ate ml/min /1.73m ^2 90.1 GFR is calculate d using the CKD-EPI equation. FINAL [place] [address] [phone] 0 Phone: () - 05/06 CMP Gluco se mg/dL 73.0 126.0 128 High FINAL [place] [address] [phone] 0 Phone: () - 05/06 CMP Potas sium mmol/L 3.5 5.1 3.9 FINAL [place] [address] [phone] 0 Phone: () - 05/06 CMP Sodiu m mmol/L 136.0 145.0 142 FINAL Deepthi Eli [place] [address] [phone] 0 Phone: () - 05/06 CMP Bilir ubin, total mg/dL 0.3 1.2 0.2 Low FINAL [place] [address] [phone] 0 Phone: () - 05/06 CMP Total prote in g/dL 5.7 8.2 7.1 FINAL Deepthi banerjee Oncology - [place], [address] [facility] [address] [facility] [phone] 0 Phone: () - Medications Date Name [...] old woman who was admitted 04/03/2019 from [place] to [facility] with dyspnea and a left [...] mg po q 12 hours, D1,2, Aspariginase 61226 u IM day 3 + Neulasta. * [...] for Consolidation?? Block 9:??She received??with CTX, MTX, LIQUOR CLERK-16 + growth factor support with neulasta * [...]
--- OUTSIDE RECORDS SUMMARY | 2025-02-07 17:50 | XMS_ITS ---
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 Phone Bernabe Jang [place] Unavailable [...] Abnor mal FINAL Mady banerjee [facility], [address] [place] [id number] 0 Phone: () - 12/14 CBC w/ auto diff WBC K/uL 3.0 8.9 3.9 FINAL Mady banerjee [facility], [address] 200 [facility] [place] [id number] 0 Phone: () - 12/14 CBC w/ auto diff HGB g/dL 11.3 15.2 9.3 Low FINAL Mady banerjee [facility] [place] [facility], [address] 200 [place] [id number] 0 Phone: () - 12/14 CBC w/ auto diff PLT K/uL 113.0 364.0 372 High FINAL Mady banerjee [facility] [place] [facility], [address] [place] [address] 200 [facility] [place] [id number] 0 Phone: () - 12/14 CBC w/ auto diff Dawna # (ANC) K/uL 1.6 6.6 2.1 FINAL Mady banerjee [facility] [place] [facility], [address] [place] [address] 200 [facility] [place] [phone] 0 Phone: () - 12/14 CBC w/ auto diff Dawna % % 43.0 74.0 54.9 FINAL Mady banerjee [facility] [place] [facility], [address] [place] [address] 200 [facility] [place] [id number] 0 Phone: () - 12/14 CBC w/ auto diff IG % % 0.0 0.5 0.5 FINAL Mady banerjee [facility] - [place], [address] [place] [address] 200 [facility] [place] [id number] 0 Phone: () - 12/14 CBC w/ auto diff IG # K/uL 0.0 0.03 0.02 FINAL Mady banerjee [facility] - [place], [address] [place] [address] 200 [facility] [place] [id number] 0 Phone: () - 12/14 CBC w/ auto diff LY % % 14.0 41.0 26.2 FINAL Mady banerjee [facility] - [place], [address] [place] [address] 200 [place] [id number] 0 Phone: () - 12/14 CBC w/ auto diff MO % % 6.0 15.0 16.6 High FINAL Mady banerjee [facility] [place], [address] [place] [address] 200 [facility] [place] [id number] 0 Phone: () - 12/14 CBC w/ auto diff EO % % 0.0 7.0 1.3 FINAL Mady banerjee [facility] - [place], [address] [place] [address] [address] [place] [id number] 0 Phone: () - 12/14 CBC w/ auto diff BA % % 0.0 2.0 0.5 FINAL Mady banerjee [facility] - [place], [address] [place] [address] [address] [place] [id number] 0 Phone: () - 12/14 CBC w/ auto diff LY # K/uL 0.4 3.6 1.0 FINAL Mady banerjee [facility] - [place], [address] [place] [address] [address] [place] [id number] 0 Phone: () - 12/14 CBC w/ auto diff MO # K/uL 0.2 1.3 0.6 FINAL Mady banerjee [facility] - [place], [address] [place] [address] [address] [place] [id number] 0 Phone: () - 12/14 CBC w/ auto diff EO # K/uL 0.0 0.6 0.1 FINAL Mady banerjee [facility] - [place], [address] [place] [address] [address] [place] [id number] 0 Phone: () - 12/14 CBC w/ auto diff BA # K/uL 0.0 0.2 0.0 FINAL Mady banerjee [facility] - [place], [address] [place] [address] [address] [place] [id number] 0 Phone: () - 12/14 CBC w/ auto diff NRBC % #/100W BC 0.0 0.2 0.0 FINAL Mady banerjee [facility] - [place], [address] [place] [address] [address] [place] [id number] 0 Phone: () - 12/14 CBC w/ auto diff HCT % 35.0 48.0 29.6 Low FINAL Mady banerjee [facility] - [place], [address] [place] [address] [address] [place] [id number] 0 Phone: () - 12/14 CBC w/ auto diff MCV fL 80.0 104.0 113.8 High FINAL Mady banerjee [facility] [place], [address] [place] [address] 200 [place] [id number] 0 Phone: () - 12/14 CBC w/ auto diff MCH pg 26.0 35.0 35.8 High FINAL Mady banerjee [facility] - [facility], [address] 200 [place] [id number] 0 Phone: () - 12/14 CBC w/ auto diff MCHC g/dL 30.0 35.0 31.4 FINAL Mady banerjee [facility] - [place] [facility], [address] [place] [address] 200 [place] [id number] 0 Phone: () - 12/14 CBC w/ auto diff MPV fL 9.5 13.4 9.5 FINAL Mady banerjee [facility] - [place] [facility], [address] [place] [address] 200 [place] [id number] 0 Phone: () - 12/14 CBC w/ auto diff RDW % 11.4 16.1 19.70 High FINAL Mady banerjee [facility] - [place] [facility], [address] [place] [address] 200 [place] [id number] 0 Phone: () - 12/14 CBC w/ auto diff Auto CBC comme nts Slide review to follow FINAL Mady banerjee [facility] - [place] [facility], [address] [place] [address] 200 [place] [id number] 0 Phone: () - 12/14 CBC w/ auto diff RBC M/uL 3.9 5.1 2.60 Low FINAL Mady banerjee [facility] - [facility], [address] [place] [address] 200 [place] [id number] 0 Phone: () - 12/28 CMP Album in g/dL 3.2 5.2 3.9 FINAL [facility] [address] [place] [id number] 0 Phone: () - 12/28 CMP Alkal ine phosp hatas e U/L 46.0 116.0 59 FINAL [facility] [address] [place] [id number] 0 Phone: () - 12/28 CMP ALT/S GPT U/L 7.0 40.0 13 FINAL Idalia Eli [address] [id number] 0 Phone: () - 12/28 CMP AST/S GOT U/L 13.0 40.0 19 FINAL Idalia banerjee [address] [id number] 0 Phone: () - 12/28 CMP BUN mg/dL 9.0 23.0 11 FINAL Idalia Clemens[address] [id number] 0 Phone: () - 12/28 CMP Calci um mg/dL 8.7 10.4 9.7 FINAL Idalia Clem[address] [id number] 0 Phone: () - 12/28 CMP Chlor ray mmol/L 96.0 114.0 109 FINAL Idalia Clem[address] [id number] 0 Phone: () - 12/28 CMP CO2 mmol/L 20.0 31.0 29 FINAL Idalia Clemens[address] [id number] 0 Phone: () - 12/28 CMP Creat inine mg/dL 0.5 1.2 0.53 FINAL Idalia Clemens[address] [id number] 0 Phone: () - 12/28 CMP GFR estim ate ml/min /1.73m ^2 114.0 GFR is calculate d using the CKD-EPI equation. FINAL Idalia Clemens[address] [id number] 0 Phone: () - 12/28 CMP Gluco se mg/dL 73.0 126.0 117 FINAL Idalia Clemens[address] [id number] 0 Phone: () - 12/28 CMP Potas sium mmol/L 3.5 5.1 3.4 Low FINAL Idalia banerjee [address] [id number] 0 Phone: () - 12/28 CMP Sodiu m mmol/L 136.0 145.0 145 FINAL Idalia banerjee [facility], [address] [place] [address] 100 [facility] [id number] 0 Phone: () - 12/28 CMP Bilir ubin, total mg/dL 0.3 1.2 0.2 Low FINAL Idalia banerjee [address] 100 [facility] [id number] 0 Phone: () - 12/28 CMP Total prote in g/dL 5.7 8.2 5.6 Low FINAL Idalia banerjee [address] [id number] 0 Phone: () - 12/28 CBC w/ auto diff WBC K/uL 3.0 8.9 5.7 FINAL Idalia banerjee [facility] - [facility], [address] [place] [address] 200 [facility] [place] [id number] 0 Phone: () - 12/28 CBC w/ auto diff HGB g/dL 11.3 15.2 10.4 Low FINAL Idalia banerjee [facility] - [facility], [address] [place] [address] 200 [facility] [place] [id number] 0 Phone: () - 12/28 CBC w/ auto diff PLT K/uL 113.0 364.0 312 FINAL Idalia banerjee [facility] - [facility], [address] [place] [address] 200 [facility] [place] [id number] 0 Phone: () - 12/28 CBC w/ auto diff Dawna # (ANC) K/uL 1.6 6.6 4.1 FINAL [facility], [address] [place] [address] 200 [facility] [place] [id number] 0 Phone: () - 12/28 CBC w/ auto diff Dawna % % 43.0 74.0 72.5 FINAL Idalia banerjee [facility] - [facility], [address] [place] [address] 200 [place] [id number] 0 Phone: () - 12/28 CBC w/ auto diff IG % % 0.0 0.5 0.4 FINAL Idalia banerjee [facility] - [place], [address] 200 [facility] [id number] 0 Phone: () - 12/28 CBC w/ auto diff IG # K/uL 0.0 0.03 0.02 FINAL Idaila banerjee [facility] - [place], [address] 200 [facility] [id number] 0 Phone: () - 12/28 CBC w/ auto diff LY % % 14.0 41.0 14.4 FINAL Idalia banerjee [facility] - [place] [facility], [address] [place] [address] 200 [facility] [id number] 0 Phone: () - 12/28 CBC w/ auto diff MO % % 6.0 15.0 9.6 FINAL Idalia banerjee [facility] - [place], [address] [place] [address] 200 [facility] [id number] 0 Phone: () - 12/28 CBC w/ auto diff EO % % 0.0 7.0 2.6 FINAL Idalia banerjee [facility] - [place], [address] [place] [address] 200 [facility] [id number] 0 Phone: () - 12/28 CBC w/ auto diff BA % % 0.0 2.0 0.5 FINAL Idalia banerjee [facility] - [place], [address] [place] [address] 200 [facility] [id number] 0 Phone: () - 12/28 CBC w/ auto diff LY # K/uL 0.4 3.6 0.8 FINAL Idalia banerjee [facility] - [place], [address] [place] [address] 200 [facility] [id number] 0 Phone: () - 12/28 CBC w/ auto diff MO # K/uL 0.2 1.3 0.6 FINAL Idalia banerjee [facility] - [place], [address] [place] [address] 200 [facility] [id number] 0 Phone: () - 12/28 CBC w/ auto diff EO # K/uL 0.0 0.6 0.2 FINAL Idalia banerjee [facility] - [place], [address] [place] [address] [address] [place] [id number] 0 Phone: () - 12/28 CBC w/ auto diff BA # K/uL 0.0 0.2 0.0 FINAL Idalia banerjee [facility] - [place], [address] [place] [address] [address] [place] [id number] 0 Phone: () - 12/28 CBC w/ auto diff NRBC % #/100W BC 0.0 0.2 0.0 FINAL Idalia banerjee [facility] - [place], [address] [place] [address] [address] [place] [id number] 0 Phone: () - 12/28 CBC w/ auto diff RBC M/uL 3.9 5.1 2.97 Low FINAL Idalia banerjee [facility] - [place], [address] [place] [address] [address] [place] [id number] 0 Phone: () - 12/28 CBC w/ auto diff HCT % 35.0 48.0 32.3 Low FINAL Idalia banerjee [facility] - [place], [address] [place] [address] [address] [place] [id number] 0 Phone: () - 12/28 CBC w/ auto diff MCV fL 80.0 104.0 108.8 High FINAL Idalia banerjee [facility] - [place] [facility], [address] [place] [address] [address] [place] [id number] 0 Phone: () - 12/28 CBC w/ auto diff MCH pg 26.0 35.0 35.0 FINAL Idalia banerjee [facility] - [place], [address] [place] [address] [address] [place] [id number] 0 Phone: () - 12/28 CBC w/ auto diff MCHC g/dL 30.0 35.0 32.2 FINAL Idalia banerjee [facility] - [place] [facility], [address] [place] [address] [address] [place] [id number] 0 Phone: () - 12/28 CBC w/ auto diff MPV fL 9.5 13.4 9.9 FINAL Idalia banerjee [facility] - [place], [address] [place] [address] [address] [place] [id number] 0 Phone: () - 12/28 CBC w/ auto diff RDW % 11.4 16.1 15.20 FINAL Idalia banerjee [facility] - [place], [address] [place] [address] [address] [place] [id number] 0 Phone: () - 12/28 iSTAT creat inine panel Creat inine , iSTAT mg/dl 0.6 1.3 0.5 Low FINAL Idalia banerjee [facility] - [place], [address] [place] [address] [address] [place] [id number] 0 Phone: () - 12/28 iSTAT creat inine panel GFR estim ate ml/min /1.73m ^2 116.2 GFR is calculate d using the CKD-EPI equation. FINAL Idalia banerjee [facility] - [place], [address] [place] [address] [address] [place] [id number] 0 Phone: () - 05/01 CBC w/ auto diff PLT K/uL 113.0 364.0 257 FINAL Asim banerjee [facility] - [place] [facility], [address] [place] [address] [address] [place] [id number] 0 Phone: () - 05/01 CBC w/ auto diff Dawna # (ANC) K/uL 1.6 6.6 2.2 FINAL Asim banerjee [facility] - [place] [facility], [address] [place] [address] [address] [place] [id number] 0 Phone: () - 05/01 CBC w/ auto diff Dawna % % 43.0 74.0 46.0 FINAL Asim banerjee [facility] - [place], [address] [place] [address] [address] [place] [id number] 0 Phone: () - 05/01 CBC w/ auto diff IG % % 0.0 0.5 0.4 FINAL Asim banerjee [facility] - [place] [facility], [address] [place] [address] [address] [place] [id number] 0 Phone: () - 05/01 CBC w/ auto diff IG # K/uL 0.0 0.03 0.02 FINAL Asmi banerjee [facility] - [place] [facility], [address] [place] [address] [address] [place] [id number] 0 Phone: () - 05/01 CBC w/ auto diff LY % % 14.0 41.0 38.7 FINAL Asim banerjee [facility] - [place], [address] [place] [address] [address] [place] [id number] 0 Phone: () - 05/01 CBC w/ auto diff MO % % 6.0 15.0 10.0 FINAL Asim banerjee [facility] - [place], [address] [place] [address] [address] [place] [id number] 0 Phone: () - 05/01 CBC w/ auto diff EO % % 0.0 7.0 4.3 FINAL Asim banerjee [facility] - [place], [address] [place] [address] [address] [place] [id number] 0 Phone: () - 05/01 CBC w/ auto diff BA % % 0.0 2.0 0.6 FINAL Asim banerjee [facility] - [place], [address] [place] [address] [address] [place] [id number] 0 Phone: () - 05/01 CBC w/ auto diff LY # K/uL 0.4 3.6 1.9 FINAL Asim banerjee [facility] - [place], [address] [place] [address] [address] [place] [id number] 0 Phone: () - 05/01 CBC w/ auto diff MO # K/uL 0.2 1.3 0.5 FINAL Asim banerjee [facility] - [place], [address] [place] [address] [address] [place] [id number] 0 Phone: () - 05/01 CBC w/ auto diff EO # K/uL 0.0 0.6 0.2 FINAL Asim banerjee [facility] - [place], [address] [place] [address] [address] [place] [id number] 0 Phone: () - 05/01 CBC w/ auto diff BA # K/uL 0.0 0.2 0.0 FINAL Asim Eli a [facility] - [place], [address] [place] [address] [address] [place] [id number] 0 Phone: () - 05/01 CBC w/ auto diff NRBC % #/100W BC 0.0 0.2 0.0 FINAL Asim banerjee [facility] - [place], [address] [place] [address] 200 [place] [id number] 0 Phone: () - 05/01 CBC w/ auto diff RBC M/uL 3.9 5.1 4.01 FINAL Asim banerjee [facility] - [place], [address] [place] [address] 200 [place] [id number] 0 Phone: () - 05/01 CBC w/ auto diff HCT % 35.0 48.0 36.8 FINAL Asim banerjee [facility] - [place] [facility], [address] [place] [id number] 0 Phone: () - 05/01 CBC w/ auto diff MCV fL 80.0 104.0 91.8 FINAL Asim banerjee [facility] - [place], [address] [place] [address] 200 [place] [id number] 0 Phone: () - 05/01 CBC w/ auto diff MCH pg 26.0 35.0 31.2 FINAL Asim banerjee [facility] - [place] [facility], [address] [place] [address] 200 [place] [id number] 0 Phone: () - 05/01 CBC w/ auto diff MCHC g/dL 30.0 35.0 34.0 FINAL Asim banerjee [facility] - [place] [facility], [address] [place] [address] 200 [place] [id number] 0 Phone: () - 05/01 CBC w/ auto diff MPV fL 9.5 13.4 9.1 Low FINAL Asim banerjee [facility] - [place] [facility], [address] [place] [address] 200 [place] [id number] 0 Phone: () - 05/01 CBC w/ auto diff RDW % 11.4 16.1 13.90 FINAL Asim banerjee [facility] - [place], [address] [place] [address] 200 [place] [id number] 0 Phone: () - 05/01 CBC w/ auto diff Auto CBC comme nts Slide review to follow FINAL Asim banerjee [facility] [place] [facility], [address] [place] [address] [address] [place] [id number] 0 Phone: () - 05/01 CBC w/ auto diff WBC K/uL 3.0 8.9 4.9 FINAL Asim banerjee [facility] - [place] [facility], [address] [place] [address] [address] [place] [id number] 0 Phone: () - 05/01 CBC w/ auto diff HGB g/dL 11.3 15.2 12.5 FINAL Asim banerjee [facility] - [place] [facility], [address] [place] [address] [address] [place] [id number] 0 Phone: () - 05/01 Smear revie w panel CBC Smear revie w comme nts Large and-or giant platele ts present Atypica l (Reacti ve and/or Variant ) Lymphs present Abnor mal FINAL Asim banerjee [facility] [place] [facility], [address] [place] [address] [address] [place] [id number] 0 Phone: () - 05/01 Retic ulocy te count panel Retic ulocy te, absol point lay ira M/uL 0.02 0.08 0.08 FINAL Asim banerjee [facility] [place] [facility], [address] [place] [address] [address] [place] [id number] 0 Phone: () - 05/01 Retic ulocy te count panel Retic ulocy te count % 0.4 1.6 2.07 High FINAL Asim banerjee [facility] [place] [facility], [address] [place] [address] [address] [place] [id number] 0 Phone: () - 05/01 Retic ulocy te count panel Immat ure retic ulocy te fract ion, % % 0.0 16.5 10.10 FINAL Asim banerjee [facility] - [place] [facility], [address] [place] [address] [address] [place] [id number] 0 Phone: () - 05/01 Retic ulocy te count panel Retic ulocy te cellu lar hemog lobin pg 28.0 37.0 36.5 FINAL Asim banerjee [facility] [place] [facility], [address] [place] [address] [address] [place] [id number] 0 Phone: () - 05/01 Path perip heral blood slide revie w panel Patho logy/ Cytol ogy Morph ology SEE RESULTS BELOW CASE REPORTSpe cial Hematolog y Report Case: [id number] 6Authoriz ing Provider: Asim Cornelius MD Collected :05/01/20 20 1447Order ing Location: [facility] Received: 0 1212Patho [...] iagnosed by left neck lymph node biopsy ([id number] , 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 Staging bonemarro w biopsy [...] specimens .ADDITION AL INFORMATI ONInterpr eted at [facility], [facility] - [address], [facility] [place], [place] [address]Fbgr Performed by:[facility] - [facility] [place], [place] [address]Nysp e [phone] FINAL Asim Cornelius 05/01 CMP Album in g/dL 3.2 5.2 4.4 FINAL Asim Clemens[address] [place] [id number] 0 Phone: () - 05/01 CMP Alkal ine phosp hatas e U/L 46.0 116.0 76 FINAL Asim Clemens a [address] [place] [id number] 0 Phone: () - 05/01 CMP ALT/S GPT U/L 7.0 40.0 12 FINAL Asim Clemensot a [address] [place] [id number] 0 Phone: () - 05/01 CMP AST/S GOT U/L 13.0 40.0 16 FINAL Asim Clemensot a [address] [place] [id number] 0 Phone: () - 05/01 CMP BUN mg/dL 9.0 23.0 19 FINAL Asim Clemensot a [address] [place] [id number] 0 Phone: () - 05/01 CMP Calci um mg/dL 8.7 [address] [id number] 0 Phone: () - 05/01 CMP Chlor ray mmol/L 96.0 114.[address] [id number] 0 Phone: () - 05/01 CMP CO2 mmol/L 20.0 31.[address] [id number] 0 Phone: () - 05/01 CMP Creat inine mg/dL 0.5 [address] [id number] 0 Phone: () - 05/01 CMP GFR estim ate ml/min /1.73m ^2 97.0 GFR is calculate d using the CKD-EPI equation. [address] [id number] 0 Phone: () - 05/01 CMP Gluco se mg/dL 73.0 126.0 [address] [id number] 0 Phone: () - 05/01 CMP Potas sium mmol/L 3.5 5.[address] [id number] 0 Phone: () - 05/01 CMP Sodiu m mmol/L 136.0 145.[address] [id number] 0 Phone: () - 05/01 CMP Bilir ubin, total mg/dL 0.3 1.2 0.[address] [id number] 0 Phone: () - 05/01 CMP Total prote in g/dL 5.7 8.2 6.1 FINAL Asim Eli a [facility] - [place], [address] [facility] [address] [place] [id number] 0 Phone: () - 06/19 Retic ulocy te count panel Retic ulocy te, absol point lay ira M/uL 0.02 0.08 0.08 FINAL Asim banerjee [facility] - [place] [facility], [address] [place] [address] [address] [place] [id number] 0 Phone: () - 06/19 Retic ulocy te count panel Retic ulocy te count % 0.4 1.6 1.75 High FINAL Asim banerjee [facility] - [place] [facility], [address] [place] [address] [address] [place] [id number] 0 Phone: () - 06/19 Retic ulocy te count panel Immat ure retic ulocy te fract ion, % % 0.0 16.5 10.80 FINAL Asim banerjee [facility] - [place] [facility], [address] [place] [address] [address] [place] [id number] 0 Phone: () - 06/19 Retic ulocy te count panel Retic ulocy te cellu lar hemog lobin pg 28.0 37.0 34.6 FINAL Asim banerjee [facility] - [place] [facility], [address] [place] [address] [address] [place] [id number] 0 Phone: () - 06/19 CBC w/ auto diff WBC K/uL 3.0 8.9 8.7 FINAL Asim banerjee [facility] - [place] [facility], [address] [place] [address] [address] [place] [id number] 0 Phone: () - 06/19 CBC w/ auto diff HGB g/dL 11.3 15.2 14.2 FINAL Asim banerjee [facility] - [place] [facility], [address] [place] [address] [address] [place] [id number] 0 Phone: () - 06/19 CBC w/ auto diff PLT K/uL 113.0 364.0 282 FINAL Asim banerjee [facility] - [place] [facility], [address] [place] [address] [address] [place] [id number] 0 Phone: () - 06/19 CBC w/ auto diff Dawna # (ANC) K/uL 1.6 6.6 4.9 FINAL Asim Clemensot a [facility] - [place], [address] [place] [address] [address] [place] [id number] 0 Phone: () - 06/19 CBC w/ auto diff Dawna % % 43.0 74.0 56.8 FINAL Asimmatt Clemensot a [facility] - [place], [address] [place] [address] [address] [place] [id number] 0 Phone: () - 06/19 CBC w/ auto diff IG % % 0.0 0.5 0.5 FINAL Asimmatt Clemensot a [facility] - [place], [address] [place] [address] [address] [place] [id number] 0 Phone: () - 06/19 CBC w/ auto diff IG # K/uL 0.0 0.03 0.04 High FINAL Asim Clemensot a [facility] [place] [facility], [address] [place] [address] [address] [place] [id number] 0 Phone: () - 06/19 CBC w/ auto diff LY % % 14.0 41.0 33.4 FINAL Asim Clemensot [facility] - [place], [address] [place] [address] [address] [place] [id number] 0 Phone: () - 06/19 CBC w/ auto diff MO % % 6.0 15.0 7.0 FINAL Asim Clemensot a [facility] - [place], [address] [place] [address] [address] [place] [id number] 0 Phone: () - 06/19 CBC w/ auto diff EO % % 0.0 7.0 1.8 FINAL Asimmatt Clemensot a [facility] - [place], [address] [place] [address] [address] [place] [id number] 0 Phone: () - 06/19 CBC w/ auto diff BA % % 0.0 2.0 0.5 FINAL Asimmatt Clemensot a [facility] - [place], [address] [place] [address] [address] [place] [id number] 0 Phone: () - 06/19 CBC w/ auto diff LY # K/uL 0.4 3.6 2.9 FINAL Asimmatt Cornelius [place] [facility] [place], [address] [place] [address] [address] [place] [id number] 0 Phone: () - 06/19 CBC w/ auto diff MO # K/uL 0.2 1.3 0.6 FINAL Asim banerjee [facility] - [place], [address] [place] [address] [address] [place] [id number] 0 Phone: () - 06/19 CBC w/ auto diff EO # K/uL 0.0 0.6 0.2 FINAL [facility] [place], [address] [place] [address] [address] [place] [id number] Phone: () - 06/19 CBC w/ auto diff BA # K/uL 0.0 0.2 0.0 FINAL [facility] [place], [address] [place] [address] [address] [place] [id number] Phone: () - 06/19 CBC w/ auto diff NRBC % #/100W BC 0.0 0.2 0.0 FINAL [facility] [place], [address] [place] [address] [address] [place] [id number] Phone: () - 06/19 CBC w/ auto diff RBC M/uL 3.9 5.1 4.67 FINAL [facility] [place], [address] [place] [address] [address] [place] [id number] Phone: () - 06/19 CBC w/ auto diff HCT % 35.0 48.0 41.7 FINAL [facility] [place], [address] [place] [address] [address] [place] [id number] Phone: () - 06/19 CBC w/ auto diff MCV fL 80.0 104.0 89.3 FINAL [facility] [place], [address] [place] [address] [address] [place] [id number] Phone: () - 06/19 CBC w/ auto diff MCH pg 26.0 35.0 30.4 FINAL [facility] [place], [address] [place] [address] [address] [place] [id number] 0 Phone: () - 06/19 CBC w/ auto diff MCHC g/dL 30.0 35.0 34.1 FINAL [facility], [address] [place] [address] [address] [place] [id number] Phone: () - 06/19 CBC w/ auto diff MPV fL 9.5 13.4 8.8 Low FINAL [facility], [address] [place] [address] [address] [place] [id number] 0 Phone: () - 06/19 CBC w/ auto diff RDW % 11.4 16.1 13.10 FINAL [facility] and [facility], [address] [place] [address] [address] [place] [phone] 0 Phone: () - 06/19 LDH panel LDH U/L 120.0 246.0 246 FINAL Asim banerjee [facility], [address] [place] [address] [phone] Phone: () - 06/19 CMP Album in g/dL 3.2 5.2 4.6 FINAL Asim banerjee [facility], [address] [facility] [id number] 0 Phone: () - 06/19 CMP Alkal ine phosp hatas e U/L 46.0 116.0 91 FINAL Asim banejree [facility], [address] [facility] [phone] 0 Phone: () - 06/19 CMP ALT/S GPT U/L 7.0 40.0 27 FINAL Asim Clemens a [facility], [address] [facility] [phone] 0 Phone: () - 06/19 CMP AST/S GOT U/L 13.0 40.0 34 FINAL Asim banerjee [facility], [address] [facility] [phone] 0 Phone: () - 06/19 CMP BUN mg/dL 9.0 23.0 11 FINAL Asim Cornelius [facility], [address] [facility] 100 [facility] [phone] 0 Phone: () - 06/19 CMP Calci um mg/dL 8.7 10.4 9.4 [facility], [address] [facility] 100 [facility] [phone] 0 Phone: () - 06/19 CMP Chlor ray mmol/L 96.0 114.0 107 [facility] Asim Cornelius [place] [address] [address] [facility] 100 [facility] [phone] 0 Phone: () - 06/19 CMP CO2 [...] end of the 96 hour stability window. [facility] Asim Cornelius [facility], [facility] [address] [phone] 0 Phone: () - 06/19 CMP Creat inine mg/dL 0.5 1.2 0.68 [facility] [place] [address] [phone] 0 Phone: () - 06/19 CMP GFR estim ate ml/min /1.73m ^2 103.9 GFR is calculate d using the CKD-EPI equation. [facility] Asim Cornelius [facility], [facility] [address] [phone] 0 Phone: () - 06/19 CMP Gluco se mg/dL 73.0 126.0 95 [facility] [place] [address] [address] [facility] 100 [facility] [phone] 0 Phone: () - 06/19 CMP Potas sium mmol/L 3.5 5.1 4.1 [facility] [place] [address] [phone] 0 Phone: () - 06/19 CMP Sodiu m mmol/L 136.0 145.0 140 FINAL Asim Clemensot a [facility] - [place], [address] [facility] [phone] 0 Phone: () - 06/19 CMP Bilir ubin, total mg/dL 0.3 1.2 0.2 Low FINAL Asim Cornelius [place] [facility] [place], [address] [facility] [phone] 0 Phone: () - 06/19 CMP Total prote in g/dL 5.7 8.2 6.9 FINAL Asim Clemensot a [facility] - [place], [address] [facility] [phone] 0 Phone: () - 06/19 Path perip heral blood slide revie w panel Patho logy/ Cytol ogy Morph ology SEE RESULTS BELOW CASE REPORTSpe cial Hematolog y Report Case: [id number] ing Provider: Asim Cornelius MD Collected :06/19/20 21 1340Order ing Location: [facility] Received: 1 1734Patho logist: Elvie Hernández MDSpecime n: BloodFINA L DIAGNOSIS PERIPHERA L BLOOD:1. Negative for circulati ng blasts2. Within normal limitsEle ctronical ly signed by Elvie Hernández MD on 06/20/2021 at 1:03 PMCOMMENT This case was also reviewed by Mis hill [place], MS ([facility]CL INICAL INFORMATI ONThe patient is a 46-year-o ld female with a history of acute lymphoid leukemia. 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 Staging bone marrow biopsy was negative forlympho ma ([id number]) . Her most recent periphera l blood morpholog y 2019 ([id number] ,05/01/2020 ) was negative for circulati ng [...] blood smear.ADD ITIONAL INFORMATI ONInterpr eted at [facility], [facility] - [address], [place], [place] [address]Qzjj Performed by:[facility] - [facility] [place] [address]Kenl e : FINAL Asim Cornelius 01/19 [facility] other lab See wood heel attacher d 05/01 [facility] other lab See wood heel attacher d 05/06 LDH panel LDH U/L 120.0 246.0 191 FINAL Deepthi Clemensot a [facility] - [place], [address] [facility] [phone] 0 Phone: () - 05/06 CMP Album in g/dL 3.2 5.2 4.7 FINAL [facility], [address] [facility] [address] [phone] 0 Phone: () - 05/06 CMP Alkal ine phosp hatas e U/L 46.0 116.0 73 FINAL Deepthi Dodge [place] [address] [facility] [address] [phone] 0 Phone: () - 05/06 CMP ALT/S GPT U/L 7.0 40.0 19 FINAL Deepthi Dodge [place] [address] [facility] [address] [phone] 0 Phone: () - 05/06 CMP AST/S GOT U/L 13.0 40.0 21 FINAL Deepthi [place] [address] [facility] [address] [phone] 0 Phone: () - 05/06 CMP BUN mg/dL 9.0 23.0 16.0 FINAL Deepthi Dodge [facility] [address] [facility] [address] [phone] 0 Phone: () - 05/06 CMP Calci um mg/dL 8.7 10.4 9.8 FINAL Deepthi Dodge [place] [address] [facility] [address] [phone] 0 Phone: () - 05/06 CMP Chlor ray mmol/L 96.0 114.0 107 FINAL Deepthi Dodge [facility] [address] [facility] [address] [phone] 0 Phone: () - 05/06 CMP CO2 [...] 96 hour stability window. FINAL Deepthi Dodge [place] [address] [phone] 0 Phone: () - 05/06 CMP Creat inine mg/dL 0.5 1.2 0.80 FINAL Deepthi Clemens [place] [address] [phone] 0 Phone: () - 05/06 CMP GFR estim ate ml/min /1.73m ^2 90.1 GFR is calculate d using the CKD-EPI equation. FINAL Deep[place] [address] [phone] 0 Phone: () - 05/06 CMP Gluco se mg/dL 73.0 126.0 128 High FINAL Deepthi [place] [address] [id number] 0 Phone: () - 05/06 CMP Potas sium mmol/L 3.5 5.1 3.9 FINAL Deep[place] [address] [phone] 0 Phone: () - 05/06 CMP Sodiu m mmol/L 136.0 145.0 142 FINAL Deepthi Clemens [place] [address] [phone] 0 Phone: () - 05/06 CMP Bilir ubin, total mg/dL 0.3 1.2 0.2 Low FINAL Deep[place] [address] [phone] 0 Phone: () - 05/06 CMP Total prote in g/dL 5.7 8.2 7.1 FINAL Deepthi Dodge [place] [address] [phone] 0 Phone: () - 05/06 Retic ulocy te count panel Retic ulocy te, absol point lay ira M/uL 0.02 0.08 0.07 FINAL [facility], [address] [facility] [phone] 0 Phone: () - 05/06 Retic ulocy te count panel Retic ulocy te count % 0.4 1.6 1.60 FINAL Deepthi banerjee [facility] - [place] [facility], [address] 200 [facility] [place] [phone] 0 Phone: () - 05/06 Retic ulocy te count panel Immat ure retic ulocy te fract ion, % % 0.0 16.5 9.70 FINAL Deepthi banerjee [facility] [place] [facility], [address] 200 [facility] [place] [phone] 0 Phone: () - 05/06 Retic ulocy te count panel Retic ulocy te cellu lar hemog lobin pg 28.0 37.0 33.0 FINAL Deepthi banerjee [facility], [address] [place] [address] 200 [facility] [place] [phone] 0 Phone: () - 05/06 CBC w/ auto diff WBC K/uL 3.0 8.9 8.4 FINAL Deepthi banerjee [facility], [address] [place] [address] 200 [facility] [place] [phone] 0 Phone: () - 05/06 CBC w/ auto diff HGB g/dL 11.3 15.2 13.6 FINAL Deepthi banerjee [facility], [address] [place] [address] 200 [facility] [place] [phone] 0 Phone: () - 05/06 CBC w/ auto diff PLT K/uL 113.0 364.0 266 FINAL Deepthi banerjee [facility], [address] [place] [address] 200 [facility] [place] [phone] 0 Phone: () - 05/06 CBC w/ auto diff Dawna # (ANC) K/uL 1.6 6.6 3.9 FINAL Deepthi banerjee [facility], [address] [place] [address] 200 [facility] [place] [phone] 0 Phone: () - 05/06 CBC w/ auto diff Dawna % % 43.0 74.0 46.7 FINAL Deepthi Clemens [place] [facility] [place], [address] [place] [address] [address] [place] [phone] 0 Phone: () - 05/06 CBC w/ auto diff IG % % 0.0 0.5 0.5 FINAL Deepthi banerjee [facility] - [place], [address] [place] [address] [address] [place] [phone] 0 Phone: () - 05/06 CBC w/ auto diff IG # K/uL 0.0 0.03 0.04 High FINAL Deepthi banerjee [facility] - [place], [address] [place] [address] [address] [place] [phone] 0 Phone: () - 05/06 CBC w/ auto diff LY % % 14.0 41.0 44.8 High FINAL Deepthi banerjee [facility] - [place] [facility], [address] [place] [address] [address] [place] [phone] 0 Phone: () - 05/06 CBC w/ auto diff MO % % 6.0 15.0 6.2 FINAL Deepthi banerjee [facility] - [place], [address] [place] [address] [address] [place] [phone] 0 Phone: () - 05/06 CBC w/ auto diff EO % % 0.0 7.0 1.4 FINAL Deepthi banerjee [facility] - [place], [address] [place] [address] [address] [place] [phone] 0 Phone: () - 05/06 CBC w/ auto diff BA % % 0.0 2.0 0.4 FINAL Deepthi banerjee [facility] - [place], [address] [place] [address] [address] [place] [phone] 0 Phone: () - 05/06 CBC w/ auto diff LY # K/uL 0.4 3.6 3.8 High FINAL Deepthi banerjee [facility] - [place] [facility], [address] [place] [address] [address] [place] [phone] 0 Phone: () - 05/06 CBC w/ auto diff MO # K/uL 0.2 1.3 0.5 FINAL Deepthi banerjee [facility] - [place], [address] [place] [address] [address] [place] [phone] 0 Phone: () - 05/06 CBC w/ auto diff EO # K/uL 0.0 0.6 0.1 FINAL Deepthi banerjee [facility] - [place] [facility], [address] [place] [address] [address] [place] [phone] 0 Phone: () - 05/06 CBC w/ auto diff BA # K/uL 0.0 0.2 0.0 FINAL Deepthi banerjee [facility] - [place] [facility], [address] [place] [address] [address] [place] [phone] 0 Phone: () - 05/06 CBC w/ auto diff NRBC % #/100W BC 0.0 0.2 0.0 FINAL Deepthi banerjee [facility] - [place] [facility], [address] [place] [address] [address] [place] [phone] 0 Phone: () - 05/06 CBC w/ auto diff RBC M/uL 3.9 5.1 4.57 FINAL Deepthi banerjee [facility] - [place] [facility], [address] [place] [address] [address] [place] [id number] 0 Phone: () - 05/06 CBC w/ auto diff HCT % 35.0 48.0 40.7 FINAL Deepthi banerjee [facility] - [place] [facility], [address] [place] [address] [address] [place] [phone] 0 Phone: () - 05/06 CBC w/ auto diff MCV fL 80.0 104.0 89.1 FINAL Deepthi banerjee [facility] - [place] [facility], [address] [place] [address] [address] [place] [phone] 0 Phone: () - 05/06 CBC w/ auto diff MCH pg 26.0 35.0 29.8 FINAL Deepthi banerjee [facility] - [place] [facility], [address] [place] [address] [address] [place] [phone] 0 Phone: () - 05/06 CBC w/ auto diff MCHC g/dL 30.0 35.0 33.4 FINAL Deepthi banerjee [facility] - [place] [facility], [address] [place] [address] [address] [place] [phone] 0 Phone: () - 05/06 CBC w/ auto diff MPV fL 9.5 13.4 9.3 Low FINAL Deepthi banerjee Oncology [facility], [address] [place] [address] 200 [facility] [phone] 0 Phone: () - 05/06 CBC w/ auto diff RDW % 11.4 16.1 13.60 FINAL Deepthi banerjee Oncology [facility], [address] [facility] [phone] 0 Phone: () - Medications Date Name [...]
--- OUTSIDE RECORDS SUMMARY | 2025-02-07 17:50 | XMS_ITS | CCD ---
Author Name Interface, [id number] lity Address [address] [place], [place] [id number] [facility] Address [address] [place] [address] Care Team Providers Care Customer Solutions Coordinator Name Role Phone Deepthi Dodge Unavailable Unavailable Cheryle Ashford Unavailable Unavailable Care Plan Reason for Visit Encounters Functional Status Medications Problems Procedures Social History
--- OUTSIDE RECORDS SUMMARY | 2025-02-07 17:50 | XMS_ITS ---
Author Name Interface, [id number] lity Address [address] [place] [address] [address] [address] [facility] Address [address] [facility] [address] [place] [address] Care Team Providers Care Private Duty Aide Name Role Phone Deepthi Dodge Unavailable Unavailable [...] 246.0 191 FINAL Deepthi banerjee [facility] - [place], [address] [facility] [place] [address] [facility] [phone] 0 Phone: () - 05/06 CBC w/ auto diff WBC K/uL 3.0 8.9 8.4 FINAL Deepthi banerjee Oncology - [facility], [address] [place] [address] [address] [facility] [id number] 0 Phone: () - 05/06 CBC w/ auto diff HGB g/dL 11.3 15.2 13.6 FINAL Deepthi banerjee [facility] - [place], [address] [place] [address] [address] [place] [id number] 0 Phone: () - 05/06 CBC w/ auto diff PLT K/uL 113.0 364.0 266 FINAL Deepthi banerjee [facility] - [place], [address] [place] [address] [address] [place] [id number] 0 Phone: () - 05/06 CBC w/ auto diff Dawna # (ANC) K/uL 1.6 6.6 3.9 FINAL Deepthi banerjee [facility] - [place], [address] [place] [address] [address] [place] [id number] 0 Phone: () - 05/06 CBC w/ auto diff Dawna % % 43.0 74.0 46.7 FINAL Deepthi banerjee [facility] - [place], [address] [place] [address] [address] [place] [id number] 0 Phone: () - 05/06 CBC w/ auto diff IG % % 0.0 0.5 0.5 FINAL Deepthi banerjee [facility] - [place], [address] [place] [address] [address] [place] [id number] 0 Phone: () - 05/06 CBC w/ auto diff IG # K/uL 0.0 0.03 0.04 High FINAL Deepthi banerjee [facility] - [place], [address] [place] [address] [address] [place] [id number] 0 Phone: () - 05/06 CBC w/ auto diff LY % % 14.0 41.0 44.8 High FINAL Deepthi banerjee [facility] - [place], [address] [place] [address] [address] [place] [id number] 0 Phone: () - 05/06 CBC w/ auto diff MO % % 6.0 15.0 6.2 FINAL Deepthi banerjee [facility] - [place], [address] [place] [address] [address] [place] [id number] 0 Phone: () - 05/06 CBC w/ auto diff EO % % 0.0 7.0 1.4 FINAL Deepthi banerjee [facility] - [place], [address] [place] [id number] 0 Phone: () - 05/06 CBC w/ auto diff BA % % 0.0 2.0 0.4 FINAL Deepthi banerjee [facility] - [place] [facility], [address] [place] [address] [address] [place] [id number] 0 Phone: () - 05/06 CBC w/ auto diff LY # K/uL 0.4 3.6 3.8 High FINAL Deepthi banerjee [facility] - [place] [facility], [address] [place] [address] [address] [place] [id number] 0 Phone: () - 05/06 CBC w/ auto diff MO # K/uL 0.2 1.3 0.5 FINAL Deepthi banerjee [facility] - [place] [facility], [address] [place] [address] [address] [place] [id number] 0 Phone: () - 05/06 CBC w/ auto diff EO # K/uL 0.0 0.6 0.1 FINAL Deepthi banerjee [facility] - [place] [facility], [address] [place] [address] [address] [place] [id number] 0 Phone: () - 05/06 CBC w/ auto diff BA # K/uL 0.0 0.2 0.0 FINAL Deepthi banerjee [facility] - [place] [facility], [address] [place] [address] [address] [place] [id number] 0 Phone: () - 05/06 CBC w/ auto diff NRBC % #/100W BC 0.0 0.2 0.0 FINAL Deepthi banerjee [facility] - [place] [facility], [address] [place] [address] [address] [place] [id number] 0 Phone: () - 05/06 CBC w/ auto diff RBC M/uL 3.9 5.1 4.57 FINAL Deepthi banerjee [facility] - [place] [facility], [address] [place] [address] [address] [place] [id number] 0 Phone: () - 05/06 CBC w/ auto diff HCT % 35.0 48.0 40.7 FINAL Deepthi banerjee [facility] - [place] [facility], [address] [place] [address] 200 [facility] [place] [id number] 0 Phone: () - 05/06 CBC w/ auto diff MCV fL 80.0 104.0 89.1 FINAL Deepthi banerjee [facility] - [place], [address] [place] [address] [address] [place] [id number] 0 Phone: () - 05/06 CBC w/ auto diff MCH pg 26.0 35.0 29.8 FINAL Deepthi banerjee [facility] - [place] [facility], [address] [place] [address] 200 [facility] [place] [id number] 0 Phone: () - 05/06 CBC w/ auto diff MCHC g/dL 30.0 35.0 33.4 FINAL Deepthi banerjee [facility] - [place] [facility], [address] [place] [address] 200 [facility] [place] [phone] 0 Phone: () - 05/06 CBC w/ auto diff MPV fL 9.5 13.4 9.3 Low FINAL Deepthi banerjee [facility] - [place] [facility], [address] [place] [address] 200 [facility] [place] [id number] 0 Phone: () - 05/06 CBC w/ auto diff RDW % 11.4 16.1 13.60 FINAL Deepthi banerjee [facility] - [place] [facility], [address] [place] [address] 200 [facility] [place] [phone] 0 Phone: () - 05/06 Retic ulocy te count panel Retic ulocy te, absol bc M/uL 0.02 0.08 0.07 FINAL Deepthi banerjee [facility] - [place] [facility], [address] [place] [address] [address] [place] [id number] 0 Phone: () - 05/06 Retic ulocy te count panel Retic ulocy te count % 0.4 1.6 1.60 FINAL Deepthi banerjee [facility] - [place] [facility], [address] [place] [address] [address] [place] [id number] 0 Phone: () - 05/06 Retic ulocy te count panel Immat ure retic ulocy te fract ion, % % 0.0 16.5 9.70 FINAL Deepthi banerjee [facility], [address] [place] [id number] 0 Phone: () - 05/06 Retic ulocy te count panel Retic ulocy te cellu lar hemog lobin pg 28.0 37.0 33.0 FINAL Deepthi Clemens [place] [facility], [address] [place] [id number] 0 Phone: () - 05/06 CMP Album in g/dL 3.2 5.2 4.7 FINAL [place] [address] [address] [facility] [place] [address] [place] [address] [phone] 0 Phone: () - 05/06 CMP Alkal ine phosp hatas e U/L 46.0 116.0 73 FINAL Deepthi Dodge [place] [address] [phone] 0 Phone: () - 05/06 CMP ALT/S GPT U/L 7.0 40.0 19 FINAL Deepthi [place] [address] [id number] 0 Phone: () - 05/06 CMP AST/S GOT U/L 13.0 40.0 21 FINAL Deepthi [place] [address] [phone] 0 Phone: () - 05/06 CMP BUN mg/dL 9.0 23.0 16.0 FINAL Deepthi [place] [address] [phone] 0 Phone: () - 05/06 CMP Calci um mg/dL 8.7 10.4 9.8 FINAL Deep[place] [address] [phone] 0 Phone: () - 05/06 CMP Chlor ray mmol/L 96.0 114.0 107 FINAL Deepthi Dodge [place] [address] [phone] 0 Phone: () - 05/06 CMP CO2 [...] 96 hour stability window. FINAL Deepthi banerjee [place] [address] [phone] 0 Phone: () - 05/06 CMP Creat inine mg/dL 0.5 1.2 0.80 FINAL Deepthi [place] [address] [phone] 0 Phone: () - 05/06 CMP GFR estim ate ml/min /1.73m ^2 90.1 GFR is calculate d using the CKD-EPI equation. FINAL Deepthi [place] [address] [phone] 0 Phone: () - 05/06 CMP Gluco se mg/dL 73.0 126.0 128 High FINAL Deepthi [place] [address] [phone] 0 Phone: () - 05/06 CMP Potas sium mmol/L 3.5 5.1 3.9 FINAL Deepthi [place] [address] [phone] 0 Phone: () - 05/06 CMP Sodiu m mmol/L 136.0 145.0 142 FINAL Deepthi Eli [place] [address] [phone] 0 Phone: () - 05/06 CMP Bilir ubin, total mg/dL 0.3 1.2 0.2 Low FINAL Deepthi [place] [address] [phone] 0 Phone: () - 05/06 CMP Total prote in g/dL 5.7 8.2 7.1 FINAL Deepthi banerjee Oncology - [place], [address] [facility] [place] [address] [facility] [phone] Phone: () - Medications Date Name [...] old woman who was admitted 04/03/2019 from [place] to [facility] with dyspnea and a left neck mass. [...] mg po q 12 hours, D1,2, Aspariginase 31976 u IM day 3 + Neulasta. * [...] for Consolidation?? Block 9:??She received??with CTX, MTX, DAY CARE AIDE-16 + growth factor support with neulasta * [...]
--- OUTSIDE RECORDS SUMMARY | 2025-02-07 17:50 | XMS_ITS ---
Author Name Interface, [id number] lity Address [address] [place] [address] [address] [place] [address] Organization [facility] Address [address] [place] [address] [address], [place] [address] Care Team Providers Care Respiratory Scientist Name Role Phone Aliza Gan Unavailable Unavailable [...] U/L 120.0 246.0 246 FINAL Asim Cornelius [facility] a [facility] - [place], [address] [facility] [phone] Phone: () - 06/19 Path perip heral blood slide revie w panel Patho logy/ Cytol ogy Morph ology SEE RESULTS BELOW CASE REPORTSpe cial Hematolog y Report Case: [id number] ing Provider: Asim Cornelius MD Collected :06/19/20 21 1340Order ing Location: [facility] Received: 1 1734Patho logist: [...] 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 Staging bone marrow biopsy was negative forlympho ma ([id number]) . Her most recent periphera l blood morpholog y 2019 ([id number] ,05/01/2020 ) was negative for circulati ng [...] blood smear.ADD ITIONAL INFORMATI ONInterpr eted at [facility] - [address], [place], [place] [address]Oxly Performed by:[facility] - [place], [place] [address]Uxeq e : FINAL Asim Cornelius 06/19 CBC w/ auto diff WBC K/uL 3.0 8.9 8.7 FINAL Asim Clemensot a Oncology - [facility], [address] [place] [id number] 0 Phone: () - 06/19 CBC w/ auto diff HGB g/dL 11.3 15.2 14.2 FINAL Asim Clemensot a Oncology - [facility], [address] [place] [id number] 0 Phone: () - 06/19 CBC w/ auto diff PLT K/uL 113.0 364.0 282 FINAL Asim Clemensot a Oncology - [facility], [address] [place] [id number] 0 Phone: () - 06/19 CBC w/ auto diff Dawna # (ANC) K/uL 1.6 6.6 4.9 FINAL Asim Eli a [facility] - [place] [facility], [address] [place] [address] [address] [place] [id number] 0 Phone: () - 06/19 CBC w/ auto diff Dawna % % 43.0 74.0 56.8 FINAL Asim Eli a [facility] - [place], [address] [place] [address] [address] [place] [id number] 0 Phone: () - 06/19 CBC w/ auto diff IG % % 0.0 0.5 0.5 FINAL Asim Eli a [facility] - [place] [facility], [address] [place] [address] [address] [place] [id number] 0 Phone: () - 06/19 CBC w/ auto diff IG # K/uL 0.0 0.03 0.04 High FINAL Asim Eli a [facility] - [place] [facility], [address] [place] [address] [address] [place] [id number] 0 Phone: () - 06/19 CBC w/ auto diff LY % % 14.0 41.0 33.4 FINAL Asim Eli a [facility] - [place] [facility], [address] [place] [address] [address] [place] [id number] 0 Phone: () - 06/19 CBC w/ auto diff MO % % 6.0 15.0 7.0 FINAL Asim Eli a [facility] - [place], [address] [place] [address] [address] [place] [id number] 0 Phone: () - 06/19 CBC w/ auto diff EO % % 0.0 7.0 1.8 FINAL Asim Eli a [facility] - [place], [address] [place] [address] [address] [place] [id number] 0 Phone: () - 06/19 CBC w/ auto diff BA % % 0.0 2.0 0.5 FINAL Asim Eli a [facility] - [place], [address] [place] [address] [address] [place] [id number] 0 Phone: () - 06/19 CBC w/ auto diff LY # K/uL 0.4 3.6 2.9 FINAL Asim Eli a Oncology - [place] [facility], [address] [place] [id number] 0 Phone: () - 06/19 CBC w/ auto diff MO # K/uL 0.2 1.3 0.6 FINAL Asim banerjee Oncology - [place], [address] [place] [id number] 0 Phone: () - 06/19 CBC w/ auto diff EO # K/uL 0.0 0.6 0.2 FINAL Asim banerjee Oncology - [place], [address] [place] [id number] 0 Phone: () - 06/19 CBC w/ auto diff BA # K/uL 0.0 0.2 0.0 FINAL Asim banerjee Oncology - [place], [address] [place] [id number] 0 Phone: () - 06/19 CBC w/ auto diff NRBC % #/100W BC 0.0 0.2 0.0 FINAL Asim banerjee Oncology - [place], [address] [place] [id number] 0 Phone: () - 06/19 CBC w/ auto diff RBC M/uL 3.9 5.1 4.67 FINAL Asim banerjee Oncology - [place], [address] [place] [id number] 0 Phone: () - 06/19 CBC w/ auto diff HCT % 35.0 48.0 41.7 FINAL Asim banerjee Oncology - [place], [address] [place] [id number] 0 Phone: () - 06/19 CBC w/ auto diff MCV fL 80.0 104.0 89.3 FINAL Asim banerjee Oncology - [place], [address] [place] [address] [address] [place] [id number] 0 Phone: () - 06/19 CBC w/ auto diff MCH pg 26.0 35.0 30.4 FINAL Asim banerjee Oncology - [place], [address] [place] [id number] 0 Phone: () - 06/19 CBC w/ auto diff MCHC g/dL 30.0 35.0 34.1 FINAL Asim banerjee Oncology - [place] [facility], [address] [place] [id number] 0 Phone: () - 06/19 CBC w/ auto diff MPV fL 9.5 13.4 8.8 Low FINAL Asim banerjee Oncology - [place] [facility], [address] [place] [id number] 0 Phone: () - 06/19 CBC w/ auto diff RDW % 11.4 16.1 13.10 FINAL Asim banerjee Oncology - [place] [facility], [address] [place] [address] 200 [place] [id number] 0 Phone: () - 06/19 Retic ulocy te count panel Retic ulocy te, absol soboba M/uL 0.02 0.08 0.08 FINAL Asim banerjee Oncology - [place] [facility], [address] [place] [id number] 0 Phone: () - 06/19 Retic ulocy te count panel Retic ulocy te count % 0.4 1.6 1.75 High FINAL Asim banerjee Oncology - [place] [facility], [address] [place] [address] 200 [place] [id number] 0 Phone: () - 06/19 Retic ulocy te count panel Immat ure retic ulocy te fract ion, % % 0.0 16.5 10.80 FINAL Asim banerjee Oncology - [place] [facility], [address] [place] [id number] 0 Phone: () - 06/19 Retic ulocy te count panel Retic ulocy te cellu lar hemog lobin pg 28.0 37.0 34.6 FINAL Asim banerjee Oncology - [place] [facility], [address] [place] [address] 200 [place] [id number] 0 Phone: () - 06/19 CMP Album in g/dL 3.2 5.2 4.6 FINAL Asim banerjee Oncology [facility], [address] [facility] [id number] 0 Phone: () - 06/19 CMP Alkal ine phosp hatas e U/L 46.0 116.0 91 FINAL Asimmatt Cornelius [facility], [address] [facility] [id number] 0 Phone: () - 06/19 CMP ALT/S GPT U/L 7.0 40.0 27 FINAL Asim Cornelius [facility], [address] [facility] [id number] 0 Phone: () - 06/19 CMP AST/S GOT U/L 13.0 40.0 34 FINAL [facility], [address] [facility] [id number] 0 Phone: () - 06/19 CMP BUN mg/dL 9.0 23.0 11 FINAL [facility], [address] [place] [address] [id number] 0 Phone: () - 06/19 CMP Calci um mg/dL 8.7 10.4 9.4 FINAL [facility], [address] [facility] [id number] 0 Phone: () - 06/19 CMP Chlor ray mmol/L 96.0 114.0 107 FINAL [facility], [address] [place] [address] [id number] 0 Phone: () - 06/19 CMP CO2 [...] the 96 hour stability window. FINAL [facility], [address] [facility] [id number] 0 Phone: () - 06/19 CMP Creat inine mg/dL 0.5 1.2 0.68 FINAL [facility] [address] [facility] [id number] 0 Phone: () - 06/19 CMP GFR estim ate ml/min /1.73m ^2 103.9 GFR is calculate d using the CKD-EPI equation. FINAL Asim Cornelius [facility], [address] [facility] [phone] 0 Phone: () - 06/19 CMP Gluco se mg/dL 73.0 126.0 95 FINAL Asimmatt Cornelius [facility], [address] [facility] [id number] 0 Phone: () - 06/19 CMP Potas sium mmol/L 3.5 5.1 4.1 [facility], [address] [facility] [id number] 0 Phone: () - 06/19 CMP Sodiu m mmol/L 136.0 145.0 140 FINAL Asim [facility], [address] [facility] [id number] 0 Phone: () - 06/19 CMP Bilir ubin, total mg/dL 0.3 1.2 0.2 Low [facility], [address] [facility] [id number] 0 Phone: () - 06/19 CMP Total prote in g/dL 5.7 8.2 6.9 [facility] [address] [facility] [address] [facility] [id number] 0 Phone: () - 01/19 [facility] other lab See box hinge and lock attacher d 05/01 Mis other lab See box hinge and lock attacher d 05/06 CBC w/ auto diff WBC K/uL 3.0 8.9 8.4 FINAL Deepthi Cleemns lavonne [facility], [address] [facility] [id number] 0 Phone: () - 05/06 CBC w/ auto diff HGB g/dL 11.3 15.2 13.6 FINAL Deepthi Clemens lavonne [facility] - [place], [address] [place] [id number] 0 Phone: () - 05/06 CBC w/ auto diff PLT K/uL 113.0 364.0 266 FINAL Deepthi banerjee Oncology - [place] [facility], [address] [place] [id number] 0 Phone: () - 05/06 CBC w/ auto diff Dawna # (ANC) K/uL 1.6 6.6 3.9 FINAL Deepthi banerjee Oncology - [place], [address] [place] [id number] 0 Phone: () - 05/06 CBC w/ auto diff Dawna % % 43.0 74.0 46.7 FINAL Deepthi banerjee Oncology - [place], [address] 200 [place] [id number] 0 Phone: () - 05/06 CBC w/ auto diff IG % % 0.0 0.5 0.5 FINAL Deepthi banerjee Oncology - [place] [facility], [address] 200 [place] [id number] 0 Phone: () - 05/06 CBC w/ auto diff IG # K/uL 0.0 0.03 0.04 High FINAL Deepthi banerjee Oncology - [place] [facility], [address] [place] [id number] 0 Phone: () - 05/06 CBC w/ auto diff LY % % 14.0 41.0 44.8 High FINAL Deepthi banerjee Oncology - [place] [facility], [address] [place] [id number] 0 Phone: () - 05/06 CBC w/ auto diff MO % % 6.0 15.0 6.2 FINAL Deepthi banerjee Oncology - [place], [address] [place] [id number] 0 Phone: () - 05/06 CBC w/ auto diff EO % % 0.0 7.0 1.4 FINAL Deepthi banerjee Oncology - [place], [address] 200 [place] [id number] 0 Phone: () - 05/06 CBC w/ auto diff BA % % 0.0 2.0 0.4 FINAL Deepthi banerjee Oncology - [place] [facility], [address] [place] [address] 200 [place] [id number] 0 Phone: () - 05/06 CBC w/ auto diff LY # K/uL 0.4 3.6 3.8 High FINAL Deepthi banerjee Oncology - [place], [address] [place] [address] 200 [place] [id number] 0 Phone: () - 05/06 CBC w/ auto diff MO # K/uL 0.2 1.3 0.5 FINAL Deepthi banerjee Oncology - [place] [facility], [address] [place] [address] 200 [place] [id number] 0 Phone: () - 05/06 CBC w/ auto diff EO # K/uL 0.0 0.6 0.1 FINAL Deepthi banerjee Oncology - [place] [facility], [address] [place] [address] 200 [place] [id number] 0 Phone: () - 05/06 CBC w/ auto diff BA # K/uL 0.0 0.2 0.0 FINAL Deepthi banerjee Oncology - [place] [facility], [address] [place] [address] 200 [place] [id number] 0 Phone: () - 05/06 CBC w/ auto diff NRBC % #/100W BC 0.0 0.2 0.0 FINAL Deepthi banerjee Oncology - [place] [facility], [address] [place] [address] 200 [place] [id number] 0 Phone: () - 05/06 CBC w/ auto diff RBC M/uL 3.9 5.1 4.57 FINAL Deepthi banerjee Oncology - [place] [facility], [address] [place] [address] 200 [place] [id number] 0 Phone: () - 05/06 CBC w/ auto diff HCT % 35.0 48.0 40.7 FINAL Deepthi banerjee Oncology - [place], [address] [place] [address] 200 [place] [id number] 0 Phone: () - 05/06 CBC w/ auto diff MCV fL 80.0 104.0 89.1 FINAL Deepthi banerjee Oncology - [place] [facility], [address] [place] [address] 200 [place] [id number] 0 Phone: () - 05/06 CBC w/ auto diff MCH pg 26.0 35.0 29.8 FINAL Deepthi banerjee Oncology - [place] [facility], [address] [place] [address] 200 [place] [id number] 0 Phone: () - 05/06 CBC w/ auto diff MCHC g/dL 30.0 35.0 33.4 FINAL Deepthi banerjee Oncology - [place] [facility], [address] [place] [address] 200 [place] [id number] 0 Phone: () - 05/06 CBC w/ auto diff MPV fL 9.5 13.4 9.3 Low FINAL Deepthi Clemens lavonne Oncology - [place] [facility], [address] [place] [address] 200 [place] [id number] 0 Phone: () - 05/06 CBC w/ auto diff RDW % 11.4 16.1 13.60 FINAL Deepthi Clemens lavonne Oncology - [place] [facility], [address] [place] [address] 200 [place] [id number] 0 Phone: () - 05/06 Retic ulocy te count panel Retic ulocy te, absol soboba M/uL 0.02 0.08 0.07 FINAL Deepthi Clemens lavonne Oncology - [place] [facility], [address] [place] [address] 200 [place] [id number] 0 Phone: () - 05/06 Retic ulocy te count panel Retic ulocy te count % 0.4 1.6 1.60 FINAL Deepthi Clemens lavonne Oncology - [place] [facility], [address] [place] [address] 200 [place] [id number] 0 Phone: () - 05/06 Retic ulocy te count panel Immat ure retic ulocy te fract ion, % % 0.0 16.5 9.70 FINAL Deepthi Clemens lavonne Oncology - [place] [facility], [address] [place] [address] 200 [place] [id number] 0 Phone: () - 05/06 Retic ulocy te count panel Retic ulocy te cellu lar hemog lobin pg 28.0 37.0 33.0 FINAL Deepthi banerjee [facility] lis, [address] [place] [address] [facility] [id number] 0 Phone: () - 05/06 CMP Album in g/dL 3.2 5.2 4.7 FINAL [place] [address] [id number] 0 Phone: () - 05/06 CMP Alkal ine phosp hatas e U/L 46.0 116.0 73 FINAL [place] [address] [phone] 0 Phone: () - 05/06 CMP ALT/S GPT U/L 7.0 40.0 19 FINAL [place] [address] [id number] 0 Phone: () - 05/06 CMP AST/S GOT U/L 13.0 40.0 21 FINAL [place] [address] [id number] 0 Phone: () - 05/06 CMP BUN mg/dL 9.0 23.0 16.0 FINAL [place] [address] [id number] 0 Phone: () - 05/06 CMP Calci um mg/dL 8.7 10.4 9.8 FINAL Deepthi Dodge [place] [address] [id number] 0 Phone: () - 05/06 CMP Chlor ray mmol/L 96.0 114.0 107 FINAL [place] [address] [id number] 0 Phone: () - 05/06 CMP CO2 [...] 96 hour stability window. FINAL Deepthi banerjee [place] [address] [phone] 0 Phone: () - 05/06 CMP Creat inine mg/dL 0.5 1.2 0.80 FINAL Deepthi banerjee [place] [address] [phone] 0 Phone: () - 05/06 CMP GFR estim ate ml/min /1.73m ^2 90.1 GFR is calculate d using the CKD-EPI equation. FINAL Deepthi Clemens lavonne [place] [address] [phone] 0 Phone: () - 05/06 CMP Gluco se mg/dL 73.0 126.0 128 High FINAL Deepthi Clemens lavonne [place] [address] [id number] 0 Phone: () - 05/06 CMP Potas sium mmol/L 3.5 5.1 3.9 FINAL Deephti Clemens lavonne [place] [address] [id number] 0 Phone: () - 05/06 CMP Sodiu m mmol/L 136.0 145.0 142 FINAL [place] [address] [id number] 0 Phone: () - 05/06 CMP Bilir ubin, total mg/dL 0.3 1.2 0.2 Low FINAL [place] [address] [id number] 0 Phone: () - 05/06 CMP Total prote in g/dL 5.7 8.2 7.1 FINAL [place] [address] [address] [facility] 100 [facility] [phone] 0 Phone: () - 05/06 LDH panel LDH U/L 120.0 246.0 191 FINAL Deepthi Eli a [facility] - [place], [address] [facility] [address] [facility] [phone] 0 Phone: () - Medications Date Name [...]
[2025-02-07 18:33] LABS: Chloride* 102 mmol/L (96-114); Sodium* 135 mmol/L (135-149)
[2025-02-07 18:34] LABS: Potassium* 3.8 mmol/L (3.6-5.1)
[2025-02-07 18:36] LABS: Blood Urea Nitrogen* 15 mg/dL (7-30); Creatinine* 0.6 mg/dL (0.5-1.5); Est. Creatinine Clearance* 87.73; Estimated Glomerular Filt Rate 109 ml/min
[2025-02-07 18:37] LABS: Anion Gap 11 mEq/L (7-15); Calcium* 9.3 mg/dL (8.4-10.6); Carbon Dioxide* 22 mmol/L (20-32); Glucose* 162 mg/dL (60-115)
[2025-02-07 18:58] VITALS: BP 161/106; PULSE 91; RESP 16; O2SAT 96
== END 2025-02-07 19:02 | disposition home or self-care (01) ==
PROVIDERS: Emergency Provider Emergency Medicine
DX: R03.0 Elevated blood-pressure reading, without diagnosis of hypertension (principal)
CPT/HCPCS: 36415; 80048; 99283; 99284

== ENCOUNTER 2025-03-02 09:14 | Emergency (ER) | payer SELFPAY ==
--- OUTSIDE RECORDS SUMMARY | 2025-03-02 09:17 | XMS_ITS ---
Author Name Interface, O5Wiepfkd lity Address [address] [place] [address] [address] [address] [facility] Address [address] [place] [address] Care Team Providers Care Systems Test Engineer Name Role Phone Deepthi Dodge Unavailable Unavailable [...] 246.0 191 FINAL Deepthi banerjee Oncology - [place], [address] [facility] [address] [facility] [id number] 0 Phone: () - 05/06 CBC w/ auto diff WBC K/uL 3.0 8.9 8.4 FINAL Deepthi banerjee Oncology - [facility] lis, [address] [place] [address] [address] [facility] [id number] 0 Phone: () - 05/06 CBC w/ auto diff HGB g/dL 11.3 15.2 13.6 FINAL Deepthi banerjee Oncology - [place] [facility], [address] [place] [address] [address] [place] [id number] 0 Phone: () - 05/06 CBC w/ auto diff PLT K/uL 113.0 364.0 266 FINAL Deepthi banerjee Oncology - [place] [facility], [address] [place] [address] [address] [place] [id number] 0 Phone: () - 05/06 CBC w/ auto diff Dawna # (ANC) K/uL 1.6 6.6 3.9 FINAL Deepthi banerjee Oncology - [place] [facility], [address] [place] [address] [address] [place] [id number] 0 Phone: () - 05/06 CBC w/ auto diff Dawna % % 43.0 74.0 46.7 FINAL Deepthi banerjee Oncology - [place], [address] [place] [address] [address] [place] [id number] 0 Phone: () - 05/06 CBC w/ auto diff IG % % 0.0 0.5 0.5 FINAL Deepthi banerjee [facility]cology - [place], [address] [place] [address] [address] [place] [id number] 0 Phone: () - 05/06 CBC w/ auto diff IG # K/uL 0.0 0.03 0.04 High FINAL Deepthi banerjee Oncology - [place] [facility], [address] [place] [address] [address] [place] [id number] 0 Phone: () - 05/06 CBC w/ auto diff LY % % 14.0 41.0 44.8 High FINAL Deepthi banerjee Oncology - [place], [address] [place] [address] [address] [place] [id number] 0 Phone: () - 05/06 CBC w/ auto diff MO % % 6.0 15.0 6.2 FINAL Deepthi banerjee Oncology - [place], [address] [place] [address] [address] [place] [id number] 0 Phone: () - 05/06 CBC w/ auto diff EO % % 0.0 7.0 1.4 FINAL Deepthi banerjee Oncology - [place], [address] [place] [id number] 0 Phone: () - 05/06 CBC w/ auto diff BA % % 0.0 2.0 0.4 FINAL Deepthi banerjee [facility]cology [place] [facility], [address] [place] [address] [address] [place] [id number] 0 Phone: () - 05/06 CBC w/ auto diff LY # K/uL 0.4 3.6 3.8 High FINAL Deepthi banerjee Oncology - [place] [facility], [address] [place] [address] [address] [place] [id number] 0 Phone: () - 05/06 CBC w/ auto diff MO # K/uL 0.2 1.3 0.5 FINAL Deepthi banerjee Oncology [place] [facility], [address] [place] [address] [address] [place] [id number] 0 Phone: () - 05/06 CBC w/ auto diff EO # K/uL 0.0 0.6 0.1 FINAL Deepthi banerjee Oncology [place] [facility], [address] [place] [address] [address] [place] [id number] 0 Phone: () - 05/06 CBC w/ auto diff BA # K/uL 0.0 0.2 0.0 FINAL Deepthi banerjee Oncology [place] [facility], [address] [place] [address] [address] [place] [id number] 0 Phone: () - 05/06 CBC w/ auto diff NRBC % #/100W BC 0.0 0.2 0.0 FINAL Deepthi banerjee Oncology [place] [facility], [address] [place] [address] [address] [place] [id number] 0 Phone: () - 05/06 CBC w/ auto diff RBC M/uL 3.9 5.1 4.57 FINAL Deepthi banerjee Oncology [place] [facility], [address] [place] [address] [address] [place] [id number] 0 Phone: () - 05/06 CBC w/ auto diff HCT % 35.0 48.0 40.7 FINAL Deepthi banerjee Oncology [place] [facility], [address] [place] [address] 200 [facility] [place] [id number] 0 Phone: () - 05/06 CBC w/ auto diff MCV fL 80.0 104.0 89.1 FINAL eDepthi banerjee Oncology - [place], [address] [place] [address] 200 [place] [id number] 0 Phone: () - 05/06 CBC w/ auto diff MCH pg 26.0 35.0 29.8 FINAL Deepthi banerjee Oncology - [place] [facility], [address] [place] [address] 200 [facility] [place] [id number] 0 Phone: () - 05/06 CBC w/ auto diff MCHC g/dL 30.0 35.0 33.4 FINAL Deepthi banerjee Oncology [place] [facility], [address] [place] [address] 200 [facility] [place] [id number] 0 Phone: () - 05/06 CBC w/ auto diff MPV fL 9.5 13.4 9.3 Low FINAL Deepthi banerjee Oncology - [place] [facility], [address] [place] [address] 200 [facility] [place] [id number] 0 Phone: () - 05/06 CBC w/ auto diff RDW % 11.4 16.1 13.60 FINAL Deepthi banerjee Oncology [place] [facility], [address] [place] [address] 200 [facility] [place] [id number] 0 Phone: () - 05/06 Retic ulocy te count panel Retic ulocy te, absol bc M/uL 0.02 0.08 0.07 FINAL Deepthi banerjee Oncology [place] [facility], [address] [place] [address] 200 [place] [id number] 0 Phone: () - 05/06 Retic ulocy te count panel Retic ulocy te count % 0.4 1.6 1.60 FINAL Deepthi banerjee Oncology [place] [facility], [address] [place] [address] 200 [place] [id number] 0 Phone: () - 05/06 Retic ulocy te count panel Immat ure retic ulocy te fract ion, % % 0.0 16.5 9.70 FINAL Deepthi banerjee [facility], [address] [place] [id number] 0 Phone: () - 05/06 Retic ulocy te count panel Retic ulocy te cellu lar hemog lobin pg 28.0 37.0 33.0 FINAL Deepthi Clemens lavonne [facility], [address] [place] [id number] 0 Phone: () - 05/06 CMP Album in g/dL 3.2 5.2 4.7 FINAL [place] [address] [address] [facility] [address] [place] [address] [id number] 0 Phone: () - 05/06 CMP Alkal ine phosp hatas e U/L 46.0 116.0 73 FINAL Deepthi Dodge [place] [address] [id number] 0 Phone: () - 05/06 CMP ALT/S GPT U/L 7.0 40.0 19 FINAL [place] [address] [id number] 0 Phone: () - 05/06 CMP AST/S GOT U/L 13.0 40.0 21 FINAL [place] [address] [id number] 0 Phone: () - 05/06 CMP BUN mg/dL 9.0 23.0 16.0 FINAL [place] [address] [phone] 0 Phone: () - 05/06 CMP Calci um mg/dL 8.7 10.4 9.8 FINAL [place]thi [place] [address] [id number] 0 Phone: () - 05/06 CMP Chlor ray mmol/L 96.0 114.0 107 FINAL Deepthi Dodge [place] [address] [id number] 0 Phone: () - 05/06 CMP CO2 [...] 96 hour stability window. FINAL Deepthi banerjee [place] [address] [phone] 0 Phone: () - 05/06 CMP Creat inine mg/dL 0.5 1.2 0.80 FINAL [place] [address] [phone] 0 Phone: () - 05/06 CMP GFR estim ate ml/min /1.73m ^2 90.1 GFR is calculate d using the CKD-EPI equation. FINAL [place] [address] [phone] 0 Phone: () - 05/06 CMP Gluco se mg/dL 73.0 126.0 128 High FINAL Deepthi [place] [address] [phone] 0 Phone: () - 05/06 CMP Potas sium mmol/L 3.5 5.1 3.9 FINAL [place] [address] [phone] 0 Phone: () - 05/06 CMP Sodiu m mmol/L 136.0 145.0 142 FINAL Deepthi Eli [place] [address] [phone] 0 Phone: () - 05/06 CMP Bilir ubin, total mg/dL 0.3 1.2 0.2 Low FINAL [place] [address] [id number] 0 Phone: () - 05/06 CMP Total prote in g/dL 5.7 8.2 7.1 FINAL Deepthi banerjee Oncology - [place], [address] [facility] [address] [facility] [id number] 0 Phone: () - Medications Date Name [...] old woman who was admitted 04/03/2019 from [place] to [facility] with dyspnea and a left [...] mg po q 12 hours, D1,2, Aspariginase 59199 u IM day 3 + Neulasta. * [...] for Consolidation?? Block 9:??She received??with CTX, MTX, SENIOR DATA MINING ANALYST-16 + growth factor support with neulasta * [...]
--- OUTSIDE RECORDS SUMMARY | 2025-03-02 09:17 | XMS_ITS ---
Author Name Interface, W2Yqlafhf lity Address [address] [facility] [address] [address] Organization [facility] Address [address] [facility] [address] [address] Care Team Providers Care Systems Mgr Name Role Phone Asim Cornelius Unavailable Unavailable [...] Ordered By Specimen Source Lab Address 05/01 CMP Album in g/dL 3.2 5.2 4.4 FINAL Asim [address] [phone] [phone] Phone: () - 05/01 CMP Alkal ine phosp hatas e U/L 46.0 116.[address] [id number] 0 Phone: () - 05/01 CMP ALT/S GPT U/L 7.0 40.0 [address] [id number] 0 Phone: () - 05/01 CMP AST/S GOT U/L 13.0 40.0 [address] [id number] 0 Phone: () - 05/01 CMP BUN mg/dL 9.0 23.0 [address] [id number] 0 Phone: () - 05/01 CMP Calci um mg/dL 8.7 10.4 9.[address] [id number] 0 Phone: () - 05/01 CMP Chlor ray mmol/L 96.0 114.0 [address] [id number] 0 Phone: () - 05/01 CMP CO2 mmol/L 20.0 31.0 [address] [id number] 0 Phone: () - 05/01 CMP Creat inine mg/dL 0.5 1.2 0.[address] [id number] 0 Phone: () - 05/01 CMP GFR estim ate ml/min /1.73m ^2 97.0 GFR is calculate d using the CKD-EPI equation. FINAL [address] [id number] 0 Phone: () - 05/01 CMP Gluco se mg/dL 73.0 126.0 150 High FINAL [address] [id number] 0 Phone: () - 05/01 CMP Potas sium mmol/L 3.5 [address] [id number] 0 Phone: () - 05/01 CMP Sodiu m mmol/L 136.0 145.[address] [id number] 0 Phone: () - 05/01 CMP Bilir ubin, total mg/dL 0.3 1.2 0.[address] [id number] 0 Phone: () - 05/01 CMP Total prote in g/dL 5.7 8.[address] [id number] 0 Phone: () - 05/01 Path perip heral blood slide revie w panel Patho logy/ Cytol ogy Morph ology SEE RESULTS BELOW CASE REPORTSpe cial Hematolog y Report Case: [id number] ing Provider: Asim Cornelius MD Collected :05/01/20 20 1447Order ing Location: [facility] Received: 0 1212Patho logist: [...] iagnosed by left neck lymph node biopsy ([id number] , 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 Staging bonemarro w biopsy [...] specimens .ADDITION AL INFORMATI ONInterpr eted at [facility], [facility] - [address], [facility] [place], [place] [address]Mtrk Performed by:[facility] - [facility] [place], [place] [address]Tguh e : FRANCISCO Cornelius 05/01 Retic ulocy te count panel Retic ulocy te, absol [place] M/uL 0.02 0.08 0.08 FINAL [facility], [address] [place] [id number] 0 Phone: () - 05/01 Retic ulocy te count panel Retic ulocy te count % 0.4 1.6 2.07 High FINAL [facility], [address] [place] [address] [address] [place] [id number] 0 Phone: () - 05/01 Retic ulocy te count panel Immat ure retic ulocy te fract ion, % % 0.0 16.5 10.10 FINAL Asim [facility], [address] [place] [address] [address] [place] [id number] 0 Phone: () - 05/01 Retic ulocy te count panel Retic ulocy te cellu lar hemog lobin pg 28.0 37.0 36.5 FINAL Asim banerjee [facility], [address] [place] [address] [address] [place] [id number] 0 Phone: () - 05/01 Smear revie w panel CBC Smear revie w comme nts Large and-or giant platele ts present Atypica l (Reacti ve and/or Variant ) Lymphs present Abnor mal FINAL Asim [facility] [place], [address] [place] [address] [address] [place] [id number] 0 Phone: () - 05/01 CBC w/ auto diff PLT K/uL 113.0 364.0 257 FINAL Asim banerjee [facility] [place], [address] [place] [id number] 0 Phone: () - 05/01 CBC w/ auto diff Dawna # (ANC) K/uL 1.6 6.6 2.2 FINAL Asim banerjee [facility] [place], [address] [place] [id number] 0 Phone: () - 05/01 CBC w/ auto diff Dawna % % 43.0 74.0 46.0 FINAL Asim banerjee [facility] [place], [address] [place] [id number] 0 Phone: () - 05/01 CBC w/ auto diff IG % % 0.0 0.5 0.4 FINAL Asim banerjee [facility] [place], [address] [place] [id number] 0 Phone: () - 05/01 CBC w/ auto diff IG # K/uL 0.0 0.03 0.02 FINAL Asim banerjee [facility] [place], [address] [place] [address] [address] [place] [id number] 0 Phone: () - 05/01 CBC w/ auto diff LY % % 14.0 41.0 38.7 FINAL Asim banerjee [facility] [place], [address] [place] [address] [address] [place] [id number] 0 Phone: () - 05/01 CBC w/ auto diff MO % % 6.0 15.0 10.0 FINAL Asim banerjee [facility] [place], [address] [place] [id number] 0 Phone: () - 05/01 CBC w/ auto diff EO % % 0.0 7.0 4.3 FINAL Asim banerjee [facility] [place], [address] [place] [address] [address] [place] [id number] 0 Phone: () - 05/01 CBC w/ auto diff BA % % 0.0 2.0 0.6 FINAL Asim banerjee [facility] [place], [address] [place] [address] [address] [place] [id number] 0 Phone: () - 05/01 CBC w/ auto diff LY # K/uL 0.4 3.6 1.9 FINAL Asim [facility] [place], [address] [place] [address] [address] [place] [id number] 0 Phone: () - 05/01 CBC w/ auto diff MO # K/uL 0.2 1.3 0.5 FINAL Asim [facility] [place], [address] [place] [address] [address] [place] [id number] 0 Phone: () - 05/01 CBC w/ auto diff EO # K/uL 0.0 0.6 0.2 FINAL Asim [facility] [place], [address] [place] [address] 200 [place] [id number] 0 Phone: () - 05/01 CBC w/ auto diff BA # K/uL 0.0 0.2 0.0 FINAL Asim banerjee [facility] [place], [address] [place] [address] [address] [place] [id number] 0 Phone: () - 05/01 CBC w/ auto diff NRBC % #/100W BC 0.0 0.2 0.0 FINAL Asim [facility] [place], [address] [place] [address] [address] [place] [id number] 0 Phone: () - 05/01 CBC w/ auto diff RBC M/uL 3.9 5.1 4.01 FINAL Asim banerjee [facility] [place], [address] [place] [address] [address] [place] [id number] 0 Phone: () - 05/01 CBC w/ auto diff HCT % 35.0 48.0 36.8 FINAL Asim banerjee [facility] [place], [address] [place] [address] [address] [place] [id number] 0 Phone: () - 05/01 CBC w/ auto diff MCV fL 80.0 104.0 91.8 FINAL Asim banerjee [facility] [place], [address] [place] [address] [address] [place] [id number] 0 Phone: () - 05/01 CBC w/ auto diff MCH pg 26.0 35.0 31.2 FINAL Asim banerjee [facility] [place], [address] [place] [address] 200 [place] [id number] 0 Phone: () - 05/01 CBC w/ auto diff MCHC g/dL 30.0 35.0 34.0 FINAL Asim banerjee [facility] [place], [address] [place] [address] 200 [place] [id number] 0 Phone: () - 05/01 CBC w/ auto diff MPV fL 9.5 13.4 9.1 Low FINAL Asim banerjee [facility] [place], [address] [place] [address] 200 [place] [id number] 0 Phone: () - 05/01 CBC w/ auto diff RDW % 11.4 16.1 13.90 FINAL Asim banerjee [facility] [place], [address] [place] [address] 200 [place] [id number] 0 Phone: () - 05/01 CBC w/ auto diff Auto CBC comme nts Slide review to follow FINAL Asim banerjee [facility] [place], [address] [place] [address] 200 [place] [id number] 0 Phone: () - 05/01 CBC w/ auto diff WBC K/uL 3.0 8.9 4.9 FINAL Asim banerjee [facility] [place], [address] [place] [address] 200 [place] [id number] 0 Phone: () - 05/01 CBC w/ auto diff HGB g/dL 11.3 15.2 12.5 FINAL Asim banerjee [facility] [place], [address] [place] [address] [address] [place] [id number] 0 Phone: () - 06/19 Retic ulocy te count panel Retic ulocy te, absol [place] M/uL 0.02 0.08 0.08 FINAL Asim banerjee [facility] [place], [address] [place] [address] [address] [place] [id number] 0 Phone: () - 06/19 Retic ulocy te count panel Retic ulocy te count % 0.4 1.6 1.75 High FINAL Asim [facility]erjee [facility] [place] [facility], [address] 200 [place] [id number] 0 Phone: () - 06/19 Retic ulocy te count panel Immat ure retic ulocy te fract ion, % % 0.0 16.5 10.80 FINAL Asim banerjee [facility] [place], [address] [place] [address] 200 [place] [id number] 0 Phone: () - 06/19 Retic ulocy te count panel Retic ulocy te cellu lar hemog lobin pg 28.0 37.0 34.6 FINAL Asim banerjee [facility] [place], [address] 200 [place] [id number] 0 Phone: () - 06/19 CBC w/ auto diff WBC K/uL 3.0 8.9 8.7 FINAL Asim banerjee [facility] [place], [address] [place] [id number] 0 Phone: () - 06/19 CBC w/ auto diff HGB g/dL 11.3 15.2 14.2 FINAL Asim banerjee [facility] [place], [address] 200 [place] [id number] 0 Phone: () - 06/19 CBC w/ auto diff PLT K/uL 113.0 364.0 282 FINAL Asim banerjee [facility] [place] [facility], [address] 200 [place] [id number] 0 Phone: () - 06/19 CBC w/ auto diff Dawna # (ANC) K/uL 1.6 6.6 4.9 FINAL Asim banerjee [facility] [place] [facility], [address] 200 [place] [id number] 0 Phone: () - 06/19 CBC w/ auto diff Dawna % % 43.0 74.0 56.8 FINAL Asim banerjee [facility] [place] [facility], [address] 200 [place] [id number] 0 Phone: () - 06/19 CBC w/ auto diff IG % % 0.0 0.5 0.5 FINAL Asim banerjee [facility] [place], [address] 200 [place] [id number] 0 Phone: () - 06/19 CBC w/ auto diff IG # K/uL 0.0 0.03 0.04 High FINAL Asim banerjee [facility] [place], [address] [place] [address] 200 [place] [id number] 0 Phone: () - 06/19 CBC w/ auto diff LY % % 14.0 41.0 33.4 FINAL Asim banerjee [facility] [place], [address] 200 [place] [id number] 0 Phone: () - 06/19 CBC w/ auto diff MO % % 6.0 15.0 7.0 FINAL Asim banerjee [facility] [place], [address] [facility] [place] [id number] 0 Phone: () - 06/19 CBC w/ auto diff EO % % 0.0 7.0 1.8 FINAL Asim banerjee [facility] [place], [address] 200 [place] [id number] 0 Phone: () - 06/19 CBC w/ auto diff BA % % 0.0 2.0 0.5 FINAL Asim [facility] [place], [address] [place] [id number] 0 Phone: () - 06/19 CBC w/ auto diff LY # K/uL 0.4 3.6 2.9 FINAL Asimmatt [facility] [place], [facility] [address] [place] [id number] 0 Phone: () - 06/19 CBC w/ auto diff MO # K/uL 0.2 1.3 0.6 FINAL Asim [facility] [place], [address] [place] [id number] 0 Phone: () - 06/19 CBC w/ auto diff EO # K/uL 0.0 0.6 0.2 FINAL Asim banerjee [facility] [place], [address] [place] [address] [address] [place] [id number] 0 Phone: () - 06/19 CBC w/ auto diff BA # K/uL 0.0 0.2 0.0 FINAL Asim banerjee [facility] [place], [address] [place] [address] [address] [place] [id number] 0 Phone: () - 06/19 CBC w/ auto diff NRBC % #/100W BC 0.0 0.2 0.0 FINAL Asim banerjee [facility] [place], [address] [place] [address] [address] [place] [id number] 0 Phone: () - 06/19 CBC w/ auto diff RBC M/uL 3.9 5.1 4.67 FINAL Asim banerjee [facility] [place], [address] [place] [address] [address] [place] [id number] 0 Phone: () - 06/19 CBC w/ auto diff HCT % 35.0 48.0 41.7 FINAL Asim banerjee [facility] [place], [address] [place] [address] [address] [place] [id number] 0 Phone: () - 06/19 CBC w/ auto diff MCV fL 80.0 104.0 89.3 FINAL Asim banerjee [facility] [place], [address] [place] [address] [address] [place] [id number] 0 Phone: () - 06/19 CBC w/ auto diff MCH pg 26.0 35.0 30.4 FINAL Asim banerjee [facility] [place], [address] [place] [address] [address] [place] [id number] 0 Phone: () - 06/19 CBC w/ auto diff MCHC g/dL 30.0 35.0 34.1 FINAL Asim banerjee [facility] [place], [address] [place] [address] [address] [place] [id number] 0 Phone: () - 06/19 CBC w/ auto diff MPV fL 9.5 13.4 8.8 Low FINAL Asim banerjee [facility], [address] [place] [address] [address] [place] [id number] 0 Phone: () - 06/19 CBC w/ auto diff RDW % 11.4 16.1 13.10 FINAL Asim banerjee [facility], [address] [place] [address] [address] [place] [id number] 0 Phone: () - 06/19 LDH panel LDH U/L 120.0 246.0 246 FINAL Asim banerjee [facility], [address] [place] [address] [id number] 0 Phone: () - 06/19 CMP Album in g/dL 3.2 5.2 4.6 FINAL Asim banerjee [facility], [address] [place] [address] [id number] 0 Phone: () - 06/19 CMP Alkal ine phosp hatas e U/L 46.0 116.0 91 FINAL Asim Clemens [facility], [address] [place] [address] [id number] 0 Phone: () - 06/19 CMP ALT/S GPT U/L 7.0 40.0 27 [facility]AL [facility] [address] [place] [address] [id number] 0 Phone: () - 06/19 CMP AST/S GOT U/L 13.0 40.0 34 [facility], [address] [place] [address] [id number] 0 Phone: () - 06/19 CMP BUN mg/dL 9.0 23.0 11 FINAL Asim Clemens lav[facility] [address] [place] [address] [id number] 0 Phone: () - 06/19 CMP Calci um mg/dL 8.7 10.4 9.4 FINAL Asim banerjee [facility], [address] [place] [address] [id number] 0 Phone: () - 06/19 CMP Chlor ray mmol/L 96.0 114.0 107 FINAL Asim [facility], [address] [facility] [id number] 0 Phone: () - 06/19 CMP CO2 [...] the 96 hour stability window. FINAL Asim [facility], [address] [id number] 0 Phone: () - 06/19 CMP Creat inine mg/dL 0.5 1.2 0.68 [facility] [address] [id number] 0 Phone: () - 06/19 CMP GFR estim ate ml/min /1.73m ^2 103.9 GFR is calculate d using the CKD-EPI equation. FINAL [place] [address] [id number] 0 Phone: () - 06/19 CMP Gluco se mg/dL 73.0 126.0 95 [facility] [address] [id number] 0 Phone: () - 06/19 CMP Potas sium mmol/L 3.5 5.1 4.1 [facility] [address] [id number] 0 Phone: () - 06/19 CMP Sodiu m mmol/L 136.0 145.0 140 [facility] [address] [id number] 0 Phone: () - 06/19 CMP Bilir ubin, total mg/dL 0.3 1.2 0.2 Low [facility], [address] [id number] 0 Phone: () - 06/19 CMP Total prote in g/dL 5.7 8.2 6.9 FINAL Asim Cornelius [facility] [place], [address] [facility] [id number] 0 Phone: () - 06/19 Path perip heral blood slide revie w panel Patho logy/ Cytol ogy Morph ology SEE RESULTS BELOW CASE REPORTSpe cial Hematolog y Report Case: [id number] ing Provider: Asim Cornelius MD Collected :06/19/20 21 1340Order ing Location: [facility] Received: 1 1734Patho logist: Elvie Hernández MDSpecime n: BloodFINA L DIAGNOSIS PERIPHERA L BLOOD:1. Negative for circulati ng blasts2. Within normal limitsEle ctronical ly signed by Elvie Hernández MD on 06/20/2021 at 1:03 PMCOMMENT This case was also reviewed by [place], [place] ([facility]).CL INICAL INFORMATI ONThe patient is a 46-year-o ld female with a history of acute lymphoid leukemia. 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 Staging bone marrow biopsy was negative forlympho ma ([id number]) . Her most recent periphera l blood morpholog y 2019 ([id number] ,05/01/2020 ) was negative for circulati ng [...] blood smear.ADD ITIONAL INFORMATI ONInterpr eted at [facility], [facility] - [address], [facility] [place], [place] [address]Pxlw Performed by:[facility] - [facility] [place], [place] [address]Iioi e : FINAL Asim Cornelius 01/19 [facility] other lab See buyer tobacco head d 05/01 [facility] other lab See buyer tobacco head d 05/06 CMP Album in g/dL 3.2 5.2 4.7 FINAL [facility], [address] [place] [id number] 0 Phone: () - 05/06 CMP Alkal ine phosp hatas e U/L 46.0 116.0 73 FINAL Deepthi Clemensot [facility], [address] [place] [id number] 0 Phone: () - 05/06 CMP ALT/S GPT U/L 7.0 40.0 19 FINAL [facility], [address] [id number] 0 Phone: () - 05/06 CMP AST/S GOT U/L 13.0 40.0 21 FINAL Deepthi banerjee [place] [address] [id number] 0 Phone: () - 05/06 CMP BUN mg/dL 9.0 23.0 16.0 FINAL Deepthi banerjee [address] [id number] 0 Phone: () - 05/06 CMP Calci um mg/dL 8.7 10.4 9.8 FINAL Deepthi Clemens [facility] [address] [id number] 0 Phone: () - 05/06 CMP Chlor ray mmol/L 96.0 114.0 107 FINAL Deepthi Dodge [address] [id number] 0 Phone: () - 05/06 CMP CO2 [...] 96 hour stability window. FINAL Deepthi banerjee [address] [id number] 0 Phone: () - 05/06 CMP Creat inine mg/dL 0.5 1.2 0.80 FINAL [facility] [address] [id number] 0 Phone: () - 05/06 CMP GFR estim ate ml/min /1.73m ^2 90.1 GFR is calculate d using the CKD-EPI equation. FINAL Deepthi Clemens[address] [id number] 0 Phone: () - 05/06 CMP Gluco se mg/dL 73.0 126.0 128 High FINAL [facility], [address] [facility] [id number] 0 Phone: () - 05/06 CMP Potas sium mmol/L 3.5 5.1 3.9 FINAL [facility], [address] [facility] [id number] 0 Phone: () - 05/06 CMP Sodiu m mmol/L 136.0 145.0 142 FINAL [facility], [address] [facility] [id number] 0 Phone: () - 05/06 CMP Bilir ubin, total mg/dL 0.3 1.2 0.2 Low FINAL [facility], [address] [facility] [id number] 0 Phone: () - 05/06 CMP Total prote in g/dL 5.7 8.2 7.1 FINAL [facility], [address] [facility] [id number] 0 Phone: () - 05/06 CBC w/ auto diff WBC K/uL 3.0 8.9 8.4 FINAL [facility], [address] [place] [address] [address] [place] [id number] 0 Phone: () - 05/06 CBC w/ auto diff HGB g/dL 11.3 15.2 13.6 FINAL [facility], [address] [place] [address] [address] [place] [id number] 0 Phone: () - 05/06 CBC w/ auto diff PLT K/uL 113.0 364.0 266 FINAL [facility], [address] [place] [address] [address] [place] [id number] 0 Phone: () - 05/06 CBC w/ auto diff Dawna # (ANC) K/uL 1.6 6.6 3.9 FINAL Deepthi banerjee [facility] [place], [address] [place] [id number] 0 Phone: () - 05/06 CBC w/ auto diff Dawna % % 43.0 74.0 46.7 FINAL Deepthi banerjee [facility] [place], [address] [place] [id number] 0 Phone: () - 05/06 CBC w/ auto diff IG % % 0.0 0.5 0.5 FINAL Deepthi banerjee [facility] [place], [address] [place] [id number] 0 Phone: () - 05/06 CBC w/ auto diff IG # K/uL 0.0 0.03 0.04 High FINAL Deepthi banerjee [facility] [place], [address] [place] [id number] 0 Phone: () - 05/06 CBC w/ auto diff LY % % 14.0 41.0 44.8 High FINAL Deepthi banerjee [facility] [place], [address] [place] [id number] 0 Phone: () - 05/06 CBC w/ auto diff MO % % 6.0 15.0 6.2 FINAL Deepthi banerjee [facility] [place], [address] [place] [id number] 0 Phone: () - 05/06 CBC w/ auto diff EO % % 0.0 7.0 1.4 FINAL Deepthi banerjee [facility] [place], [address] [place] [id number] 0 Phone: () - 05/06 CBC w/ auto diff BA % % 0.0 2.0 0.4 FINAL Deepthi banerjee [facility] [place], [address] [place] [id number] 0 Phone: () - 05/06 CBC w/ auto diff LY # K/uL 0.4 3.6 3.8 High FINAL Deepthi banerjee [facility] [place], [address] [place] [id number] 0 Phone: () - 05/06 CBC w/ auto diff MO # K/uL 0.2 1.3 0.5 FINAL Deepthi banerjee [facility] [place] [facility], [address] [place] [address] 200 [place] [id number] 0 Phone: () - 05/06 CBC w/ auto diff EO # K/uL 0.0 0.6 0.1 FINAL Deepthi banerjee [facility] [place] [facility], [address] [place] [address] 200 [place] [id number] 0 Phone: () - 05/06 CBC w/ auto diff BA # K/uL 0.0 0.2 0.0 FINAL Deepthi banerjee [facility] [place] [facility], [address] [place] [address] 200 [place] [id number] 0 Phone: () - 05/06 CBC w/ auto diff NRBC % #/100W BC 0.0 0.2 0.0 FINAL Deepthi banerjee [facility] [place] [facility], [address] [place] [address] 200 [place] [id number] 0 Phone: () - 05/06 CBC w/ auto diff RBC M/uL 3.9 5.1 4.57 FINAL Deepthi banerjee [facility] [place] [facility], [address] [place] [address] 200 [place] [id number] 0 Phone: () - 05/06 CBC w/ auto diff HCT % 35.0 48.0 40.7 FINAL Deepthi banerjee [facility] [place] [facility], [address] [place] [address] 200 [place] [id number] 0 Phone: () - 05/06 CBC w/ auto diff MCV fL 80.0 104.0 89.1 FINAL Deepthi banerjee [facility] [place] [facility], [address] [place] [address] 200 [place] [id number] 0 Phone: () - 05/06 CBC w/ auto diff MCH pg 26.0 35.0 29.8 FINAL Deepthi banerjee [facility] [place] [facility], [address] [place] [address] 200 [place] [id number] 0 Phone: () - 05/06 CBC w/ auto diff MCHC g/dL 30.0 35.0 33.4 FINAL [facility], [address] [place] [address] 200 [place] [id number] 0 Phone: () - 05/06 CBC w/ auto diff MPV fL 9.5 13.4 9.3 Low FINAL Deepthi [facility], [address] [place] [address] 200 [place] [id number] 0 Phone: () - 05/06 CBC w/ auto diff RDW % 11.4 16.1 13.60 FINAL Deepthi [facility]ens [facility] - [facility], [address] [place] [address] 200 [place] [id number] 0 Phone: () - 05/06 LDH panel LDH U/L 120.0 246.0 191 FINAL Deepthi Clemens lav[facility], [address] [facility] [address] [facility] [id number] 0 Phone: () - 05/06 Retic ulocy te count panel Retic ulocy te, absol [place] M/uL 0.02 0.08 0.07 FINAL Deepthi Clemens [facility] - [facility], [address] [place] [address] 200 [place] [id number] 0 Phone: () - 05/06 Retic ulocy te count panel Retic ulocy te count % 0.4 1.6 1.60 FINAL Deepthi [facility]ens [facility], [address] [place] [address] 200 [place] [id number] 0 Phone: () - 05/06 Retic ulocy te count panel Immat ure retic ulocy te fract ion, % % 0.0 16.5 9.70 FINAL Deepthi [facility], [address] [place] [address] 200 [place] [id number] 0 Phone: () - 05/06 Retic ulocy te count panel Retic ulocy te cellu lar hemog lobin pg 28.0 37.0 33.0 FINAL Deepthi [facility], [address] [place] [address] [facility] [phone] 0 Phone: () - Medications Date Name [...]
--- OUTSIDE RECORDS SUMMARY | 2025-03-02 09:17 | XMS_ITS | CCD ---
Author Name Interface, [employer] Address [address] [place] [address] [address] [address] Organization [facility] Address [address] [facility] [address] [place] [address] Care Team Providers Care Bit Gatherer Name Role Phone ChristiDeepthi haywood Unavailable Unavailable Cheryle Ashford Unavailable Unavailable Care Plan Date Type Value 12/14/2019 LABORDER PET/CT scan, sku ll base/mid thigh 05/02/2020 LABORDER Reticulocyte cou nt panel 05/02/2020 LABORDER Path peripheral blood slide review panel 06/19/2021 LABORDER Path peripheral blood slide review panel 06/19/2021 LABORDER Reticulocyte cou nt panel 05/09/2024 LABORDER CMP 05/09/2024 LABORDER LDH panel 05/09/2024 LABORDER CBC w/ auto diff Reason for Visit LAB 15 MIN Encounters Date Name 05/06/2023 Acute lymphoid leuke abril, disease (disorder) Functional Status Date Name Score 06/19/2021 ECOG performance status - grade 1 1 09/19/2019 Karnofsky performance status 80 09/12/2019 ECOG performance status - grade 1 1 09/08/2019 ECOG performance status - grade 1 1 08/16/2019 ECOG performance status - grade 1 1 08/02/2019 ECOG performance status - grade 1 1 08/01/2019 ECOG performance status - grade 1 1 07/28/2019 ECOG performance status - grade 1 1 07/07/2019 ECOG performance status - grade 1 1 Medications Date Name Route Dose Frequency Instructions Start Date End Date Status Albuterol HFA Inhaler 90 mcg/actuation PRN active Lisinopril Oral orally 10.0 mg daily active Furosemide Oral daily a ctive Amitriptyline Oral inactive Oxycodone Oral PO Q4H PRN 1-3tabs inactive 2018 Famotidine Oral PO 1.0 TABLET(S) BID 09/12 inactive 2018 Furosemide Oral PO 1.0 TABLET(S) BID PRN 09/12 inactive 2018 Lidocaine-Prilo darcy Topical Cream 2.5 %-2.5 % Topical 1.0 TOPICAL APPLICATION PRN 09/12 inactive 2018 Pramipexole Oral PO 5.0 TABLET(S) QHS 09/12 inactive 2018 Hydromorphone Oral PO 2.0 TABLET(S) Q4H PRN 09/12 inactive 2018 Omeprazole-Sodi um Bicarbonate Oral 40 mg-1,100 mg PO 1.0 CAPSULE(S) daily 09/12 inactive 2018 Fluoxetine Oral PO 1.0 CAPSULE(S) daily 09/12 inactive 2018 Chlorhexidine Mouthwash Swish and Spit 15.0 ML BID 09/12 inactive 2018 Lisinopril Oral PO 1.0 TABLET(S) daily 07/07 inactive 2018 Acyclovir Oral PO 1.0 TABLET(S) BID 07/07 inactive 2018 Sulfamethoxazol e-Trimethoprim Oral 400 mg-80 mg (Reg Str) PO 1.0 TABLET(S) daily 07/07 inactive 2018 Lorazepam Oral PO 2.0 TABLET(S) PRN 05/30 inactive Problems Diagnosis Status Date of Diagnosi s Gastroesophageal reflux disease (disorder) Activ e Acute lymphoid leukemia, disease (disorder) Acti ve Body mass index (BMI) 26.0-26.9, adult Inactive Body mass index (BMI) 27.0-27.9, adult Inactive Compression fracture (disorder) Active Drug prophylaxis (procedure) Active 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
--- OUTSIDE RECORDS SUMMARY | 2025-03-02 09:18 | XMS_ITS ---
Author Name Interface, [id number] lity Address [address] [place] [address] [address] [place] [address] Organization [facility] Address [address] [facility] [address] [place] [address] Care Team Providers Care Diazo Technician Name Role Phone Bernabe Jang [place] Unavailable [...] Abnor mal FINAL [facility], [address] [place] [id number] 0 Phone: () - 12/14 CBC w/ auto diff WBC K/uL 3.0 8.9 3.9 FINAL [facility], [address] 200 [facility] [place] [id number] 0 Phone: () - 12/14 CBC w/ auto diff HGB g/dL 11.3 15.2 9.3 Low FINAL Mady banerjee [facility] [place], [address] 200 [place] [id number] 0 Phone: () - 12/14 CBC w/ auto diff PLT K/uL 113.0 364.0 372 High FINAL Mady banerjee [facility] [place], [address] [place] [address] 200 [facility] [place] [id number] 0 Phone: () - 12/14 CBC w/ auto diff Dawna # (ANC) K/uL 1.6 6.6 2.1 FINAL Mady banerjee [facility] [place], [address] [place] [address] 200 [facility] [place] [id number] 0 Phone: () - 12/14 CBC w/ auto diff Dawna % % 43.0 74.0 54.9 FINAL Mady banerjee [facility] - [place], [address] [place] [address] 200 [facility] [place] [id number] 0 Phone: () - 12/14 CBC w/ auto diff IG % % 0.0 0.5 0.5 FINAL Mady banerjee [facility] - [place], [address] [place] [address] 200 [facility] [place] [id number] 0 Phone: () - 12/14 CBC w/ auto diff IG # K/uL 0.0 0.03 0.02 FINAL Mady banerjee [facility] - [place], [address] [place] [address] 200 [facility] [place] [id number] 0 Phone: () - 12/14 CBC w/ auto diff LY % % 14.0 41.0 26.2 FINAL Mady banerjee [facility] - [place], [address] [place] [address] 200 [place] [id number] 0 Phone: () - 12/14 CBC w/ auto diff MO % % 6.0 15.0 16.6 High FINAL Mady banerjee [facility] - [place], [address] [place] [address] 200 [facility] [place] [id number] 0 Phone: () - 12/14 CBC w/ auto diff EO % % 0.0 7.0 1.3 FINAL Mady banerjee [facility] - [place], [address] [place] [address] [address] [place] [id number] 0 Phone: () - 12/14 CBC w/ auto diff BA % % 0.0 2.0 0.5 FINAL Mady banerjee [facility] [place], [address] [place] [address] [address] [place] [id number] 0 Phone: () - 12/14 CBC w/ auto diff LY # K/uL 0.4 3.6 1.0 FINAL Mady banerjee [facility] - [place], [address] [place] [address] [address] [place] [id number] 0 Phone: () - 12/14 CBC w/ auto diff MO # K/uL 0.2 1.3 0.6 FINAL Mady banerjee [facility] - [place], [address] [place] [address] [address] [place] [id number] 0 Phone: () - 12/14 CBC w/ auto diff EO # K/uL 0.0 0.6 0.1 FINAL Mady bnaerjee [facility] - [place], [address] [place] [address] [address] [place] [id number] 0 Phone: () - 12/14 CBC w/ auto diff BA # K/uL 0.0 0.2 0.0 FINAL Mady banerjee [facility] - [place], [address] [place] [address] [address] [place] [id number] 0 Phone: () - 12/14 CBC w/ auto diff NRBC % #/100W BC 0.0 0.2 0.0 FINAL Mady banerjee [facility] - [place], [address] [place] [address] [address] [place] [id number] 0 Phone: () - 12/14 CBC w/ auto diff HCT % 35.0 48.0 29.6 Low FINAL Mady banerjee [facility] - [place], [address] [place] [address] [address] [place] [id number] 0 Phone: () - 12/14 CBC w/ auto diff MCV fL 80.0 104.0 113.8 High FINAL Mady banerjee [facility] [place] [facility], [address] [place] [address] 200 [place] [id number] 0 Phone: () - 12/14 CBC w/ auto diff MCH pg 26.0 35.0 35.8 High FINAL Mady banerjee [facility] - [place] [facility], [address] 200 [place] [id number] 0 Phone: () - 12/14 CBC w/ auto diff MCHC g/dL 30.0 35.0 31.4 FINAL Mady banerjee [facility] - [place] [facility], [address] [place] [address] 200 [place] [id number] 0 Phone: () - 12/14 CBC w/ auto diff MPV fL 9.5 13.4 9.5 FINAL Mady banerjee [facility] - [place] [facility], [address] [place] [address] 200 [place] [id number] 0 Phone: () - 12/14 CBC w/ auto diff RDW % 11.4 16.1 19.70 High FINAL Mady banerjee [facility] - [place] [facility], [address] [place] [address] 200 [place] [id number] 0 Phone: () - 12/14 CBC w/ auto diff Auto CBC comme nts Slide review to follow FINAL Mady banerjee [facility] - [place] [facility], [address] [place] [address] 200 [place] [id number] 0 Phone: () - 12/14 CBC w/ auto diff RBC M/uL 3.9 5.1 2.60 Low FINAL Mady banerjee [facility] - [place] [facility], [address] [place] [address] 200 [place] [id number] 0 Phone: () - 12/28 CMP Album in g/dL 3.2 5.2 3.9 FINAL Idalia Eli a [facility] [address] [place] [id number] 0 Phone: () - 12/28 CMP Alkal ine phosp hatas e U/L 46.0 116.0 59 FINAL Idalia [facility] [address] [place] [id number] 0 Phone: () - 12/28 CMP ALT/S GPT U/L 7.0 40.0 13 FINAL Idalia Eli [address] [id number] 0 Phone: () - 12/28 CMP AST/S GOT U/L 13.0 40.0 19 FINAL Idalia banerjee [address] [id number] 0 Phone: () - 12/28 CMP BUN mg/dL 9.0 23.0 11 FINAL Idalia Clemens[address] [id number] 0 Phone: () - 12/28 CMP Calci um mg/dL 8.7 10.4 9.7 FINAL Idalia Clemens[address] [id number] 0 Phone: () - 12/28 CMP Chlor ray mmol/L 96.0 114.0 109 FINAL Idalia Clemens[address] [id number] 0 Phone: () - 12/28 CMP CO2 mmol/L 20.0 31.0 29 FINAL Idalia Clemens[address] [id number] 0 Phone: () - 12/28 CMP Creat inine mg/dL 0.5 1.2 0.53 FINAL Idalia Clemens[address] [id number] 0 Phone: () - 12/28 CMP GFR estim ate ml/min /1.73m ^2 114.0 GFR is calculate d using the CKD-EPI equation. FINAL Idalia Clemens[address] [id number] 0 Phone: () - 12/28 CMP Gluco se mg/dL 73.0 126.0 117 FINAL Idalia Clemens[address] [id number] 0 Phone: () - 12/28 CMP Potas sium mmol/L 3.5 5.1 3.4 Low FINAL Idalia banerjee [address] [id number] 0 Phone: () - 12/28 CMP Sodiu m mmol/L 136.0 145.0 145 FINAL Idalia banerjee [facility], [address] [place] [address] 100 [facility] [phone] 0 Phone: () - 12/28 CMP Bilir ubin, total mg/dL 0.3 1.2 0.2 Low FINAL Idalia banerjee [address] 100 [facility] [id number] 0 Phone: () - 12/28 CMP Total prote in g/dL 5.7 8.2 5.6 Low FINAL Idalia banerjee [address] [id number] 0 Phone: () - 12/28 CBC w/ auto diff WBC K/uL 3.0 8.9 5.7 FINAL Idalia banerjee [facility] - [facility], [address] [place] [address] 200 [facility] [place] [id number] 0 Phone: () - 12/28 CBC w/ auto diff HGB g/dL 11.3 15.2 10.4 Low FINAL Idalia banerjee [facility] - [facility], [address] [place] [address] 200 [facility] [place] [id number] 0 Phone: () - 12/28 CBC w/ auto diff PLT K/uL 113.0 364.0 312 FINAL Idalia banerjee [facility] - [facility], [address] [place] [address] 200 [facility] [place] [id number] 0 Phone: () - 12/28 CBC w/ auto diff Dawna # (ANC) K/uL 1.6 6.6 4.1 FINAL Idalia [facility]jee [facility], [address] [place] [address] 200 [facility] [place] [id number] 0 Phone: () - 12/28 CBC w/ auto diff Dawna % % 43.0 74.0 72.5 FINAL Idalia banerjee [facility] - [facility], [address] [place] [address] 200 [place] [id number] 0 Phone: () - 12/28 CBC w/ auto diff IG % % 0.0 0.5 0.4 FINAL Idalia banerjee [facility] - [place], [address] 200 [facility] [id number] 0 Phone: () - 12/28 CBC w/ auto diff IG # K/uL 0.0 0.03 0.02 FINAL Idalia banerjee [facility] - [place], [address] 200 [facility] [id number] 0 Phone: () - 12/28 CBC w/ auto diff LY % % 14.0 41.0 14.4 FINAL Idalia banerjee [facility] - [place], [address] [place] [address] 200 [facility] [id number] 0 Phone: () - 12/28 CBC w/ auto diff MO % % 6.0 15.0 9.6 FINAL Idalia banerjee [facility] - [place], [address] [place] [address] 200 [facility] [id number] 0 Phone: () - 12/28 CBC w/ auto diff EO % % 0.0 7.0 2.6 FINAL Idalia banerjee [facility] - [place], [address] [place] [address] 200 [facility] [id number] 0 Phone: () - 12/28 CBC w/ auto diff BA % % 0.0 2.0 0.5 FINAL Idalia banerjee [facility] - [place], [address] [place] [address] 200 [facility] [id number] 0 Phone: () - 12/28 CBC w/ auto diff LY # K/uL 0.4 3.6 0.8 FINAL Idalia banerjee [facility] - [place], [address] [place] [address] 200 [facility] [id number] 0 Phone: () - 12/28 CBC w/ auto diff MO # K/uL 0.2 1.3 0.6 FINAL Idalia banerjee [facility] - [place], [address] [place] [address] 200 [facility] [id number] 0 Phone: () - 12/28 CBC w/ auto diff EO # K/uL 0.0 0.6 0.2 FINAL Idalia banerjee [facility] - [place], [address] [place] [address] [address] [place] [id number] 0 Phone: () - 12/28 CBC w/ auto diff BA # K/uL 0.0 0.2 0.0 FINAL Idalia banerjee [facility] - [place], [address] [place] [address] [address] [place] [id number] 0 Phone: () - 12/28 CBC w/ auto diff NRBC % #/100W BC 0.0 0.2 0.0 FINAL Idlaia banerjee [facility] - [place], [address] [place] [address] [address] [place] [id number] 0 Phone: () - 12/28 CBC w/ auto diff RBC M/uL 3.9 5.1 2.97 Low FINAL Idalia banerjee [facility] - [place], [address] [place] [address] [address] [place] [id number] 0 Phone: () - 12/28 CBC w/ auto diff HCT % 35.0 48.0 32.3 Low FINAL Idalia banerjee [facility] - [place], [address] [place] [address] [address] [place] [id number] 0 Phone: () - 12/28 CBC w/ auto diff MCV fL 80.0 104.0 108.8 High FINAL Idalia banerjee [facility] - [place], [address] [place] [address] [address] [place] [id number] 0 Phone: () - 12/28 CBC w/ auto diff MCH pg 26.0 35.0 35.0 FINAL Idalia banerjee [facility] - [place], [address] [place] [address] [address] [place] [id number] 0 Phone: () - 12/28 CBC w/ auto diff MCHC g/dL 30.0 35.0 32.2 FINAL Idalia banerjee [facility] - [place], [address] [place] [address] [address] [place] [id number] 0 Phone: () - 12/28 CBC w/ auto diff MPV fL 9.5 13.4 9.9 FINAL Idalia banerjee [facility] - [place], [address] [place] [address] [address] [place] [id number] 0 Phone: () - 12/28 CBC w/ auto diff RDW % 11.4 16.1 15.20 FINAL Idalia banerjee [facility] - [place], [address] [place] [address] [address] [place] [id number] 0 Phone: () - 12/28 iSTAT creat inine panel Creat inine , iSTAT mg/dl 0.6 1.3 0.5 Low FINAL Idalia banerjee [facility] - [place], [address] [place] [address] [address] [place] [id number] 0 Phone: () - 12/28 iSTAT creat inine panel GFR estim ate ml/min /1.73m ^2 116.2 GFR is calculate d using the CKD-EPI equation. FINAL Idalia banerjee [facility] - [place], [address] [place] [address] [address] [place] [id number] 0 Phone: () - 05/01 CBC w/ auto diff PLT K/uL 113.0 364.0 257 FINAL Asim banerjee [facility] - [place], [address] [place] [address] [address] [place] [id number] 0 Phone: () - 05/01 CBC w/ auto diff Dawna # (ANC) K/uL 1.6 6.6 2.2 FINAL Asim banerjee [facility] - [place], [address] [place] [address] [address] [place] [id number] 0 Phone: () - 05/01 CBC w/ auto diff Dawna % % 43.0 74.0 46.0 FINAL Asim banerjee [facility] - [place], [address] [place] [address] [address] [place] [id number] 0 Phone: () - 05/01 CBC w/ auto diff IG % % 0.0 0.5 0.4 FINAL Asim banerjee [facility] - [place], [address] [place] [address] [address] [place] [id number] 0 Phone: () - 05/01 CBC w/ auto diff IG # K/uL 0.0 0.03 0.02 FINAL Asim banerjee [facility] - [place], [address] [place] [address] [address] [place] [id number] 0 Phone: () - 05/01 CBC w/ auto diff LY % % 14.0 41.0 38.7 FINAL Asim banerjee [facility] - [place], [address] [place] [address] [address] [place] [id number] 0 Phone: () - 05/01 CBC w/ auto diff MO % % 6.0 15.0 10.0 FINAL Asim banerjee [facility] - [place], [address] [place] [address] [address] [place] [id number] 0 Phone: () - 05/01 CBC w/ auto diff EO % % 0.0 7.0 4.3 FINAL Asim banerjee [facility] - [place], [address] [place] [address] [address] [place] [id number] 0 Phone: () - 05/01 CBC w/ auto diff BA % % 0.0 2.0 0.6 FINAL Asim banerjee [facility] - [place], [address] [place] [address] [address] [place] [id number] 0 Phone: () - 05/01 CBC w/ auto diff LY # K/uL 0.4 3.6 1.9 FINAL Asim banerjee [facility] - [place], [address] [place] [address] [address] [place] [id number] 0 Phone: () - 05/01 CBC w/ auto diff MO # K/uL 0.2 1.3 0.5 FINAL Asim banerjee [facility] - [place], [address] [place] [address] [address] [place] [id number] 0 Phone: () - 05/01 CBC w/ auto diff EO # K/uL 0.0 0.6 0.2 FINAL Asim banerjee [facility] - [place], [address] [place] [address] [address] [place] [id number] 0 Phone: () - 05/01 CBC w/ auto diff BA # K/uL 0.0 0.2 0.0 FINAL Asim Eli a [facility] - [place], [address] [place] [address] [address] [place] [id number] 0 Phone: () - 05/01 CBC w/ auto diff NRBC % #/100W BC 0.0 0.2 0.0 FINAL Asim banerjee [facility] - [place], [address] [place] [address] 200 [place] [id number] 0 Phone: () - 05/01 CBC w/ auto diff RBC M/uL 3.9 5.1 4.01 FINAL Asim banerjee [facility] - [place], [address] [place] [address] 200 [place] [id number] 0 Phone: () - 05/01 CBC w/ auto diff HCT % 35.0 48.0 36.8 FINAL Asim banerjee [facility] - [place] [facility], [address] [place] [id number] 0 Phone: () - 05/01 CBC w/ auto diff MCV fL 80.0 104.0 91.8 FINAL Asim banerjee [facility] - [place], [address] [place] [address] 200 [place] [id number] 0 Phone: () - 05/01 CBC w/ auto diff MCH pg 26.0 35.0 31.2 FINAL Asim banerjee [facility] [place], [address] [place] [address] 200 [place] [id number] 0 Phone: () - 05/01 CBC w/ auto diff MCHC g/dL 30.0 35.0 34.0 FINAL Asim banerjee [facility] - [place], [address] [place] [address] 200 [place] [id number] 0 Phone: () - 05/01 CBC w/ auto diff MPV fL 9.5 13.4 9.1 Low FINAL Asim banerjee [facility] - [place] [facility], [address] [place] [address] 200 [place] [id number] 0 Phone: () - 05/01 CBC w/ auto diff RDW % 11.4 16.1 13.90 FINAL Asim banerjee [facility] - [place], [address] [place] [address] 200 [place] [id number] 0 Phone: () - 05/01 CBC w/ auto diff Auto CBC comme nts Slide review to follow FINAL Asim banerjee [facility] - [place] [facility], [address] [place] [address] [address] [place] [id number] 0 Phone: () - 05/01 CBC w/ auto diff WBC K/uL 3.0 8.9 4.9 FINAL Asim banerjee [facility] - [place] [facility], [address] [place] [address] [address] [place] [id number] 0 Phone: () - 05/01 CBC w/ auto diff HGB g/dL 11.3 15.2 12.5 FINAL Asim banerjee [facility] - [place] [facility], [address] [place] [address] [address] [place] [id number] 0 Phone: () - 05/01 Smear revie w panel CBC Smear revie w comme nts Large and-or giant platele ts present Atypica l (Reacti ve and/or Variant ) Lymphs present Abnor mal FINAL Asim banerjee [facility] - [place] [facility], [address] [place] [address] [address] [place] [id number] 0 Phone: () - 05/01 Retic ulocy te count panel Retic ulocy te, absol ute [place] M/uL 0.02 0.08 0.08 FINAL Asim banerjee [facility] - [place] [facility], [address] [place] [address] [address] [place] [id number] 0 Phone: () - 05/01 Retic ulocy te count panel Retic ulocy te count % 0.4 1.6 2.07 High FINAL Asim banerjee [facility] - [place] [facility], [address] [place] [address] [address] [place] [id number] 0 Phone: () - 05/01 Retic ulocy te count panel Immat ure retic ulocy te fract ion, % % 0.0 16.5 10.10 FINAL Asim banerjee [facility] - [place] [facility], [address] [place] [address] [address] [place] [id number] 0 Phone: () - 05/01 Retic ulocy te count panel Retic ulocy te cellu lar hemog lobin pg 28.0 37.0 36.5 FINAL Asim banerjee [facility] - [place] [facility], [address] [place] [address] [address] [place] [id number] 0 Phone: () - 05/01 Path perip heral blood slide revie w panel Patho logy/ Cytol ogy Morph ology SEE RESULTS BELOW CASE REPORTSpe cial Hematolog y Report Case: [id number] 6Authoriz ing Provider: Asim Cornelius MD Collected :05/01/20 20 1447Order ing Location: [facility] Received: 0 1212Patho logist: [...] iagnosed by left neck lymph node biopsy ([id number] , 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 Staging bonemarro w biopsy [...] specimens .ADDITION AL INFORMATI ONInterpr eted at [facility] - [address], [facility] [place], [place] [address]Yryx Performed by:[facility] - [facility] [place], [place] [address]Mqig e : FINAL Asim Cornelius 05/01 CMP Album in g/dL 3.2 5.2 4.4 FINAL Asim [address] [place] [id number] 0 Phone: () - 05/01 CMP Alkal ine phosp hatas e U/L 46.0 116.0 76 FINAL Asim Clmeens a [address] [place] [id number] 0 Phone: () - 05/01 CMP ALT/S GPT U/L 7.0 40.0 12 FINAL Asim Clemensot a [address] [place] [id number] 0 Phone: () - 05/01 CMP AST/S GOT U/L 13.0 40.0 16 FINAL Asim Clemensot a [address] [place] [id number] 0 Phone: () - 05/01 CMP BUN mg/dL 9.0 23.0 19 FINAL Asim Clemensot a [address] [place] [id number] 0 Phone: () - 05/01 CMP Calci um mg/dL 8.7 [address] [id number] 0 Phone: () - 05/01 CMP Chlor ray mmol/L 96.0 114.[address] [id number] 0 Phone: () - 05/01 CMP CO2 mmol/L 20.0 31.[address] [id number] 0 Phone: () - 05/01 CMP Creat inine mg/dL 0.5 [address] [id number] 0 Phone: () - 05/01 CMP GFR estim ate ml/min /1.73m ^2 97.0 GFR is calculate d using the CKD-EPI equation. [address] [id number] 0 Phone: () - 05/01 CMP Gluco se mg/dL 73.0 126.0 [address] [id number] 0 Phone: () - 05/01 CMP Potas sium mmol/L 3.5 [address] [id number] 0 Phone: () - 05/01 CMP Sodiu m mmol/L 136.0 145.[address] [id number] 0 Phone: () - 05/01 CMP Bilir ubin, total mg/dL 0.3 1.2 0.[address] [id number] 0 Phone: () - 05/01 CMP Total prote in g/dL 5.7 8.2 6.1 FINAL Asim Eli a [facility] - [place], [address] [facility] [address] [place] [id number] 0 Phone: () - 06/19 Retic ulocy te count panel Retic ulocy te, absol [place] M/uL 0.02 0.08 0.08 FINAL Asim banerjee [facility] - [place] [facility], [address] [place] [address] [address] [place] [id number] 0 Phone: () - 06/19 Retic ulocy te count panel Retic ulocy te count % 0.4 1.6 1.75 High FINAL Asim banerjee [facility] - [place] [facility], [address] [place] [address] [address] [place] [id number] 0 Phone: () - 06/19 Retic ulocy te count panel Immat ure retic ulocy te fract ion, % % 0.0 16.5 10.80 FINAL Asim banerjee [facility] - [place] [facility], [address] [place] [address] [address] [place] [id number] 0 Phone: () - 06/19 Retic ulocy te count panel Retic ulocy te cellu lar hemog lobin pg 28.0 37.0 34.6 FINAL Asim banerjee [facility] - [place] [facility], [address] [place] [address] [address] [place] [id number] 0 Phone: () - 06/19 CBC w/ auto diff WBC K/uL 3.0 8.9 8.7 FINAL Asim banerjee [facility] - [place] [facility], [address] [place] [address] [address] [place] [id number] 0 Phone: () - 06/19 CBC w/ auto diff HGB g/dL 11.3 15.2 14.2 FINAL Asim banerjee [facility] - [place] [facility], [address] [place] [address] [address] [place] [id number] 0 Phone: () - 06/19 CBC w/ auto diff PLT K/uL 113.0 364.0 282 FINAL Asim banerjee [facility] - [place] [facility], [address] [place] [address] [address] [place] [id number] 0 Phone: () - 06/19 CBC w/ auto diff Dawna # (ANC) K/uL 1.6 6.6 4.9 FINAL Asim Clemensot a [facility] - [place], [address] [place] [address] [address] [place] [id number] 0 Phone: () - 06/19 CBC w/ auto diff Dawna % % 43.0 74.0 56.8 FINAL Asimmatt Clemensot a [facility] - [place], [address] [place] [address] [address] [place] [id number] 0 Phone: () - 06/19 CBC w/ auto diff IG % % 0.0 0.5 0.5 FINAL Asimmatt Clemensot a [facility] - [place], [address] [place] [address] [address] [place] [id number] 0 Phone: () - 06/19 CBC w/ auto diff IG # K/uL 0.0 0.03 0.04 High FINAL Asim Clemensot a [facility] - [place], [address] [place] [address] [address] [place] [id number] 0 Phone: () - 06/19 CBC w/ auto diff LY % % 14.0 41.0 33.4 FINAL Asim Clemensot a [facility] - [place], [address] [place] [address] [address] [place] [id number] 0 Phone: () - 06/19 CBC w/ auto diff MO % % 6.0 15.0 7.0 FINAL Asim Clemensot a [facility] - [place], [address] [place] [address] [address] [place] [id number] 0 Phone: () - 06/19 CBC w/ auto diff EO % % 0.0 7.0 1.8 FINAL Asimmatt Clemensot a [facility] - [place], [address] [place] [address] [address] [place] [id number] 0 Phone: () - 06/19 CBC w/ auto diff BA % % 0.0 2.0 0.5 FINAL Asimmatt Clemensot a [facility] - [place], [address] [place] [address] [address] [place] [id number] 0 Phone: () - 06/19 CBC w/ auto diff LY # K/uL 0.4 3.6 2.9 FINAL Asimmatt Cornelius [place] [facility] [place], [address] [place] [address] [address] [place] [id number] 0 Phone: () - 06/19 CBC w/ auto diff MO # K/uL 0.2 1.3 0.6 FINAL Asim banerjee [facility] - [place], [address] [place] [address] [address] [place] [id number] 0 Phone: () - 06/19 CBC w/ auto diff EO # K/uL 0.0 0.6 0.2 FINAL [facility] [place], [address] [place] [address] [address] [place] [id number] Phone: () - 06/19 CBC w/ auto diff BA # K/uL 0.0 0.2 0.0 FINAL [facility] [place], [address] [place] [address] [address] [place] [id number] 0 Phone: () - 06/19 CBC w/ auto diff NRBC % #/100W BC 0.0 0.2 0.0 FINAL [facility] [place], [address] [place] [address] [address] [place] [id number] Phone: () - 06/19 CBC w/ auto diff RBC M/uL 3.9 5.1 4.67 FINAL [facility] [place], [address] [place] [address] [address] [place] [id number] 0 Phone: () - 06/19 CBC w/ auto diff HCT % 35.0 48.0 41.7 FINAL [facility] [place], [address] [place] [address] [address] [place] [id number] 0 Phone: () - 06/19 CBC w/ auto diff MCV fL 80.0 104.0 89.3 FINAL [facility] [place], [address] [place] [address] [address] [place] [id number] 0 Phone: () - 06/19 CBC w/ auto diff MCH pg 26.0 35.0 30.4 FINAL Asim [facility]er[facility] [place], [address] [place] [address] [address] [place] [phone] 0 Phone: () - 06/19 CBC w/ auto diff MCHC g/dL 30.0 35.0 34.1 FINAL Asim banerjee [facility], [address] [place] [address] [address] [place] [phone] 0 Phone: () - 06/19 CBC w/ auto diff MPV fL 9.5 13.4 8.8 Low FINAL Asim banerjee [facility], [address] [place] [address] [address] [place] [phone] 0 Phone: () - 06/19 CBC w/ auto diff RDW % 11.4 16.1 13.10 FINAL Asim banerjee [facility], [address] [place] [address] 200 [place] [phone] 0 Phone: () - 06/19 LDH panel LDH U/L 120.0 246.0 246 FINAL Asim banerjee [facility], [address] [place] [address] [phone] 0 Phone: () - 06/19 CMP Album in g/dL 3.2 5.2 4.6 FINAL Asim banerjee [facility], [address] [facility] [phone] 0 Phone: () - 06/19 CMP Alkal ine phosp hatas e U/L 46.0 116.0 91 FINAL Asim banerjee [facility], [address] [facility] [phone] 0 Phone: () - 06/19 CMP ALT/S GPT U/L 7.0 40.0 27 FINAL Asim Clemens a [facility], [address] [facility] [phone] 0 Phone: () - 06/19 CMP AST/S GOT U/L 13.0 40.0 34 FINAL Asim banerjee [facility], [address] [facility] [phone] 0 Phone: () - 06/19 CMP BUN mg/dL 9.0 23.0 11 FINAL Asim Cornelius [facility], [address] [facility] 100 [facility] [id number] 0 Phone: () - 06/19 CMP Calci um mg/dL 8.7 10.4 9.4 [facility] [address] [facility] 100 [facility] [phone] 0 Phone: () - 06/19 CMP Chlor ray mmol/L 96.0 114.0 107 [facility] Asim Cornelius [place] [address] [address] [facility] 100 [facility] [phone] 0 Phone: () - 06/19 CMP CO2 [...] end of the 96 hour stability window. [facility] Asim Cornelius [facility], [facility] [address] [phone] 0 Phone: () - 06/19 CMP Creat inine mg/dL 0.5 1.2 0.68 [facility] [place] [address] [phone] 0 Phone: () - 06/19 CMP GFR estim ate ml/min /1.73m ^2 103.9 GFR is calculate d using the CKD-EPI equation. [facility] Asim Cornelius [facility], [facility] N [address] [phone] 0 Phone: () - 06/19 CMP Gluco se mg/dL 73.0 126.0 95 [facility] [place] [address] [address] [facility] 100 [facility] [phone] 0 Phone: () - 06/19 CMP Potas sium mmol/L 3.5 5.1 4.1 [facility] [place] [address] [phone] 0 Phone: () - 06/19 CMP Sodiu m mmol/L 136.0 145.0 140 FINAL Asim Clemensot [facility] [place], [address] [facility] [phone] 0 Phone: () - 06/19 CMP Bilir ubin, total mg/dL 0.3 1.2 0.2 Low FINAL Asim Cornelius [place] [facility] [place], [address] [facility] [phone] 0 Phone: () - 06/19 CMP Total prote in g/dL 5.7 8.2 6.9 FINAL Asim Clemensot [facility] [place], [address] [facility] [phone] 0 Phone: () - 06/19 Path perip heral blood slide revie w panel Patho logy/ Cytol ogy Morph ology SEE RESULTS BELOW CASE REPORTSpe cial Hematolog y Report Case: [id number] ing Provider: Asim Cornelius MD Collected :06/19/20 21 1340Order ing Location: [facility] Received: 1 1734Patho logist: Elvie Hernández MDSpecime n: BloodFINA L DIAGNOSIS PERIPHERA L BLOOD:1. Negative for circulati ng blasts2. Within normal limitsEle ctronical ly signed by Elvie Hernández MD on 06/20/2021 at 1:03 PMCOMMENT This case was also reviewed by [place], [place] [facility]CL INICAL INFORMATI ONThe patient is a 46-year-o ld female with a history of acute lymphoid leukemia. 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 Staging bone marrow biopsy was negative forlympho ma ([id number]) . Her most recent periphera l blood morpholog y 2019 ([id number] ,05/01/2020 ) was negative for circulati ng [...] blood smear.ADD ITIONAL INFORMATI ONInterpr eted at [facility] - [address], [place], [place] [address]Pujw Performed by:[facility] - [facility] [place] [address]Zuul e : FINAL Asim Cornelius 01/19 [facility] other lab See tailings dam pumper d 05/01 [facility] other lab See tailings dam pumper d 05/06 LDH panel LDH U/L 120.0 246.0 191 FINAL Deepthi Clemensot a [facility] [place], [address] [facility] [phone] Phone: () - 05/06 CMP Album in g/dL 3.2 5.2 4.7 [facility] [address] [facility] [address] [phone] 0 Phone: () - 05/06 CMP Alkal ine phosp hatas e U/L 46.0 116.0 73 FINAL Deepthi Dodge [place] [address] [facility] [address] [phone] 0 Phone: () - 05/06 CMP ALT/S GPT U/L 7.0 40.0 19 FINAL Deepthi Dodge [place] [address] [facility] [address] [phone] 0 Phone: () - 05/06 CMP AST/S GOT U/L 13.0 40.0 21 FINAL [place] [address] [facility] [address] [phone] 0 Phone: () - 05/06 CMP BUN mg/dL 9.0 23.0 16.0 FINAL Deepthi Dodge [facility] [address] [facility] [address] [phone] 0 Phone: () - 05/06 CMP Calci um mg/dL 8.7 10.4 9.8 FINAL Deepthi Dodge [place] [address] [facility] [address] [phone] 0 Phone: () - 05/06 CMP Chlor ray mmol/L 96.0 114.0 107 FINAL Deepthi Dodge [facility] [address] [facility] [address] [phone] 0 Phone: () - 05/06 CMP CO2 [...] 96 hour stability window. FINAL Deepthi [place] [address] [phone] 0 Phone: () - 05/06 CMP Creat inine mg/dL 0.5 1.2 0.80 FINAL Deepthi Clemens [place] [address] [phone] 0 Phone: () - 05/06 CMP GFR estim ate ml/min /1.73m ^2 90.1 GFR is calculate d using the CKD-EPI equation. FINAL [place] [address] [phone] 0 Phone: () - 05/06 CMP Gluco se mg/dL 73.0 126.0 128 High FINAL [place] [address] [phone] 0 Phone: () - 05/06 CMP Potas sium mmol/L 3.5 5.1 3.9 FINAL [place] [address] [phone] 0 Phone: () - 05/06 CMP Sodiu m mmol/L 136.0 145.0 142 FINAL Deepthi Clemens [place] [address] [phone] 0 Phone: () - 05/06 CMP Bilir ubin, total mg/dL 0.3 1.2 0.2 Low FINAL [place] [address] [phone] 0 Phone: () - 05/06 CMP Total prote in g/dL 5.7 8.2 7.1 FINAL Deepthi Dodge [place] [address] [phone] 0 Phone: () - 05/06 Retic ulocy te count panel Retic ulocy te, absol [place] M/uL 0.02 0.08 0.07 FINAL [facility], [address] [facility] [phone] 0 Phone: () - 05/06 Retic ulocy te count panel Retic ulocy te count % 0.4 1.6 1.60 FINAL Deepthi banerjee [facility] - [place] [facility], [address] [facility] [place] [phone] 0 Phone: () - 05/06 Retic ulocy te count panel Immat ure retic ulocy te fract ion, % % 0.0 16.5 9.70 FINAL Deepthi banerjee [facility] [place] [facility], [address] [facility] [place] [phone] 0 Phone: () - 05/06 Retic ulocy te count panel Retic ulocy te cellu lar hemog lobin pg 28.0 37.0 33.0 FINAL [facility], [address] [place] [address] 200 [facility] [place] [phone] 0 Phone: () - 05/06 CBC w/ auto diff WBC K/uL 3.0 8.9 8.4 FINAL Deep[facility], [address] [place] [address] 200 [facility] [place] [phone] 0 Phone: () - 05/06 CBC w/ auto diff HGB g/dL 11.3 15.2 13.6 FINAL Deep[facility]jee [facility], [address] [place] [address] 200 [facility] [place] [phone] 0 Phone: () - 05/06 CBC w/ auto diff PLT K/uL 113.0 364.0 266 FINAL Deepthi [facility]jee [facility], [address] [place] [address] 200 [facility] [place] [phone] 0 Phone: () - 05/06 CBC w/ auto diff Dawna # (ANC) K/uL 1.6 6.6 3.9 FINAL Deepthi banerjee [facility], [address] [place] [address] 200 [facility] [place] [phone] 0 Phone: () - 05/06 CBC w/ auto diff Dawna % % 43.0 74.0 46.7 FINAL Deepthi Clemens [facility] [place], [address] [place] [address] 200 [place] [phone] 0 Phone: () - 05/06 CBC w/ auto diff IG % % 0.0 0.5 0.5 FINAL Deepthi banerjee [facility] [place], [address] [place] [address] 200 [place] [phone] 0 Phone: () - 05/06 CBC w/ auto diff IG # K/uL 0.0 0.03 0.04 High FINAL Deepthi banerjee [facility] [place], [address] [place] [address] 200 [place] [phone] 0 Phone: () - 05/06 CBC w/ auto diff LY % % 14.0 41.0 44.8 High FINAL Deepthi banerjee [facility] [place] [facility], [address] [place] [address] 200 [place] [phone] 0 Phone: () - 05/06 CBC w/ auto diff MO % % 6.0 15.0 6.2 FINAL Deepthi banerjee [facility] [place], [address] [place] [address] 200 [place] [phone] 0 Phone: () - 05/06 CBC w/ auto diff EO % % 0.0 7.0 1.4 FINAL Deepthi banerjee [facility] [place], [address] [place] [address] 200 [place] [phone] 0 Phone: () - 05/06 CBC w/ auto diff BA % % 0.0 2.0 0.4 FINAL Deepthi banerjee [facility] [place], [address] [place] [address] 200 [place] [phone] 0 Phone: () - 05/06 CBC w/ auto diff LY # K/uL 0.4 3.6 3.8 High FINAL Deepthi banerjee [facility] - [place] [facility], [address] [place] [address] 200 [place] [phone] 0 Phone: () - 05/06 CBC w/ auto diff MO # K/uL 0.2 1.3 0.5 FINAL Deepthi banerjee [facility] [place], [address] [place] [address] 200 [place] [phone] 0 Phone: () - 05/06 CBC w/ auto diff EO # K/uL 0.0 0.6 0.1 FINAL Deepthi banerjee [facility] - [place] [facility], [address] [place] [address] 200 [place] [phone] 0 Phone: () - 05/06 CBC w/ auto diff BA # K/uL 0.0 0.2 0.0 FINAL Deepthi banerjee [facility] [place] [facility], [address] [place] [address] 200 [place] [phone] 0 Phone: () - 05/06 CBC w/ auto diff NRBC % #/100W BC 0.0 0.2 0.0 FINAL Deepthi banerjee [facility] - [place] [facility], [address] [place] [address] 200 [place] [phone] 0 Phone: () - 05/06 CBC w/ auto diff RBC M/uL 3.9 5.1 4.57 FINAL Deepthi banerjee [facility] - [place] [facility], [address] [place] [address] 200 [place] [phone] 0 Phone: () - 05/06 CBC w/ auto diff HCT % 35.0 48.0 40.7 FINAL Deepthi banerjee [facility] [place] [facility], [address] [place] [address] 200 [place] [phone] 0 Phone: () - 05/06 CBC w/ auto diff MCV fL 80.0 104.0 89.1 FINAL Deepthi banerjee [facility] [place] [facility], [address] [place] [address] 200 [place] [phone] 0 Phone: () - 05/06 CBC w/ auto diff MCH pg 26.0 35.0 29.8 FINAL Deepthi banerjee [facility] - [place] [facility], [address] [place] [address] 200 [place] [phone] 0 Phone: () - 05/06 CBC w/ auto diff MCHC g/dL 30.0 35.0 33.4 FINAL Deepthi banerjee [facility] - [place] [facility], [address] [place] [address] 200 [place] [phone] 0 Phone: () - 05/06 CBC w/ auto diff MPV fL 9.5 13.4 9.3 Low FINAL Deepthi banerjee On[facility], [address] [place] [address] 200 [facility] [phone] 0 Phone: () - 05/06 CBC w/ auto diff RDW % 11.4 16.1 13.60 FINAL Deepthi banerjee [facility], [address] 200 [facility] [phone] 0 Phone: () - Medications Date Name [...]
--- OUTSIDE RECORDS SUMMARY | 2025-03-02 09:18 | XMS_ITS | CCD ---
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 Superintendent Name Role Phone ChristiDeepthi haywood Unavailable Unavailable Cheryle Ashford Unavailable Unavailable Care Plan Date Type Value 12/14/2019 LABORDER PET/CT scan, sku ll base/mid thigh 05/02/2020 LABORDER Reticulocyte cou nt panel 05/02/2020 LABORDER Path peripheral blood slide review panel 06/19/2021 LABORDER Path peripheral blood slide review panel 06/19/2021 LABORDER Reticulocyte cou nt panel 05/09/2024 LABORDER CMP 05/09/2024 LABORDER CBC w/ auto diff 05/09/2024 LABORDER LDH panel Reason for Visit [...] Oral PO Q4H PRN 1-3tabs inactive 2018 Furosemide Oral PO 1.0 TABLET(S) BID PRN 09/12 inactive 2018 Famotidine Oral PO 1.0 TABLET(S) BID 09/12 inactive 2018 Lidocaine-Prilo darcy Topical Cream [...] Spit 15.0 ML BID 09/12 inactive 2018 Acyclovir Oral PO 1.0 TABLET(S) BID 07/07 inactive 2018 Lisinopril Oral PO 1.0 TABLET(S) daily 07/07 inactive 2018 Sulfamethoxazol e-Trimethoprim Oral 400 [...] fracture (disorder) Active Drug prophylaxis (procedure) Active Body mass index (BMI) 25.0-25.9, adult Inactive Acute thrombosis of subclavian vein (disorder) A ctive Anxiety (finding) Active Cough (finding) Active Upper respiratory infection (disorder) Active Acute lymphoid leukemia, disease (disorder) Acti ve Procedures Date Category Name Instructions Status 05/09/2024 Physician Order RTC MD/DRESSAGE INSTRUCTOR Ordered Social History Date Name Value 05/01/2023 Sex Female
--- OUTSIDE RECORDS SUMMARY | 2025-03-02 09:18 | XMS_ITS ---
Author Name Interface, [id number] lity Address [address] [place] [address] [address] [place] [address] Organization [facility] Address [address] [facility] [address] [place] [address] Care Team Providers Care Vending Service Technician Name Role Phone Bernabe Jang Milton [...] Abnor mal FINAL Mady banerjee [facility], [address] [place] [id number] 0 Phone: () - 12/14 CBC w/ auto diff WBC K/uL 3.0 8.9 3.9 FINAL [facility]ady banerjee [facility], [address] 200 [facility] [place] [id number] 0 Phone: () - 12/14 CBC w/ auto diff HGB g/dL 11.3 15.2 9.3 Low FINAL Mady banerjee [facility] - [place], [address] 200 [place] [id number] 0 Phone: () - 12/14 CBC w/ auto diff PLT K/uL 113.0 364.0 372 High FINAL Mady banerjee [facility] - [place], [address] [place] [address] 200 [facility] [place] [id number] 0 Phone: () - 12/14 CBC w/ auto diff Dawna # (ANC) K/uL 1.6 6.6 2.1 FINAL Mady banerjee [facility] - [place], [address] [place] [address] 200 [facility] [place] [id number] 0 Phone: () - 12/14 CBC w/ auto diff Dawna % % 43.0 74.0 54.9 FINAL Mady banerjee [facility] - [place], [address] [place] [address] 200 [facility] [place] [phone] 0 Phone: () - 12/14 CBC w/ auto diff IG % % 0.0 0.5 0.5 FINAL Mady banerjee [facility] - [place], [address] [place] [address] 200 [facility] [place] [id number] 0 Phone: () - 12/14 CBC w/ auto diff IG # K/uL 0.0 0.03 0.02 FINAL Mady banerjee [facility] - [place], [address] [place] [address] 200 [facility] [place] [id number] 0 Phone: () - 12/14 CBC w/ auto diff LY % % 14.0 41.0 26.2 FINAL Mady banerjee [facility] - [place], [address] [place] [address] 200 [place] [id number] 0 Phone: () - 12/14 CBC w/ auto diff MO % % 6.0 15.0 16.6 High FINAL Mady banerjee [facility] - [place], [address] [place] [address] 200 [facility] [place] [id number] 0 Phone: () - 12/14 CBC w/ auto diff EO % % 0.0 7.0 1.3 FINAL Mady banerjee [facility] - [place], [address] [place] [address] [address] [place] [id number] 0 Phone: () - 12/14 CBC w/ auto diff BA % % 0.0 2.0 0.5 FINAL Mady banerjee [facility] - [place], [address] [place] [address] [address] [place] [id number] 0 Phone: () - 12/14 CBC w/ auto diff LY # K/uL 0.4 3.6 1.0 FINAL Mady banerjee [facility] - [place], [address] [place] [address] [address] [place] [id number] 0 Phone: () - 12/14 CBC w/ auto diff MO # K/uL 0.2 1.3 0.6 FINAL Mady banerjee [facility] - [place], [address] [place] [address] [address] [place] [id number] 0 Phone: () - 12/14 CBC w/ auto diff EO # K/uL 0.0 0.6 0.1 FINAL Mady banerjee [facility] - [place], [address] [place] [address] [address] [place] [id number] 0 Phone: () - 12/14 CBC w/ auto diff BA # K/uL 0.0 0.2 0.0 FINAL Mady banerjee [facility] - [place], [address] [place] [address] [address] [place] [id number] 0 Phone: () - 12/14 CBC w/ auto diff NRBC % #/100W BC 0.0 0.2 0.0 FINAL Mady banerjee [facility] - [place], [address] [place] [address] [address] [place] [id number] 0 Phone: () - 12/14 CBC w/ auto diff HCT % 35.0 48.0 29.6 Low FINAL Mady banerjee [facility] - [place], [address] [place] [address] [address] [place] [id number] 0 Phone: () - 12/14 CBC w/ auto diff MCV fL 80.0 104.0 113.8 High FINAL Mady banerjee [facility] - [place] [facility], [address] [place] [address] 200 [place] [id number] 0 Phone: () - 12/14 CBC w/ auto diff MCH pg 26.0 35.0 35.8 High FINAL Mady banerjee [facility] - [place] [facility], [address] 200 [place] [id number] 0 Phone: () - 12/14 CBC w/ auto diff MCHC g/dL 30.0 35.0 31.4 FINAL Mady banerjee [facility] - [place] [facility], [address] [place] [address] 200 [place] [id number] 0 Phone: () - 12/14 CBC w/ auto diff MPV fL 9.5 13.4 9.5 FINAL Mady banerjee [facility] - [place] [facility], [address] [place] [address] 200 [place] [id number] 0 Phone: () - 12/14 CBC w/ auto diff RDW % 11.4 16.1 19.70 High FINAL Mady banerjee [facility] - [place] [facility], [address] [place] [address] 200 [place] [id number] 0 Phone: () - 12/14 CBC w/ auto diff Auto CBC comme nts Slide review to follow FINAL Mady banerjee [facility] - [place] [facility], [address] [place] [address] 200 [place] [id number] 0 Phone: () - 12/14 CBC w/ auto diff RBC M/uL 3.9 5.1 2.60 Low FINAL Mady banerjee [facility] - [place] [facility], [address] [place] [address] 200 [place] [id number] 0 Phone: () - 12/28 CMP Album in g/dL 3.2 5.2 3.9 FINAL Idalia Eli [facility] [address] [place] [id number] 0 Phone: () - 12/28 CMP Alkal ine phosp hatas e U/L 46.0 116.0 59 FINAL Idalia [facility] [address] [place] [id number] 0 Phone: () - 12/28 CMP ALT/S GPT U/L 7.0 40.0 13 FINAL Idalia Eli [address] [id number] 0 Phone: () - 12/28 CMP AST/S GOT U/L 13.0 40.0 19 FINAL Idalia banerjee [address] [id number] 0 Phone: () - 12/28 CMP BUN mg/dL 9.0 23.0 11 FINAL Idalia Clemens[address] [id number] 0 Phone: () - 12/28 CMP Calci um mg/dL 8.7 10.4 9.7 FINAL Idalia [address] [id number] 0 Phone: () - 12/28 CMP Chlor ray mmol/L 96.0 114.0 109 FINAL Idalia Clemens[address] [id number] 0 Phone: () - 12/28 CMP CO2 mmol/L 20.0 31.0 29 FINAL Idalia Clemens[address] [id number] 0 Phone: () - 12/28 CMP Creat inine mg/dL 0.5 1.2 0.53 FINAL Idalia Clemens[address] [id number] 0 Phone: () - 12/28 CMP GFR estim ate ml/min /1.73m ^2 114.0 GFR is calculate d using the CKD-EPI equation. FINAL Idalia Clemens[address] [id number] 0 Phone: () - 12/28 CMP Gluco se mg/dL 73.0 126.0 117 FINAL Idalia Clemens[address] [id number] 0 Phone: () - 12/28 CMP Potas sium mmol/L 3.5 5.1 3.4 Low FINAL Idalia banerjee [address] [id number] 0 Phone: () - 12/28 CMP Sodiu m mmol/L 136.0 145.0 145 FINAL Idalia banerjee [facility], [address] [place] [address] 100 [facility] [id number] 0 Phone: () - 12/28 CMP Bilir ubin, total mg/dL 0.3 1.2 0.2 Low FINAL Idalia banerjee [address] 100 [facility] [id number] 0 Phone: () - 12/28 CMP Total prote in g/dL 5.7 8.2 5.6 Low FINAL Idalia banerjee [address] [id number] 0 Phone: () - 12/28 CBC w/ auto diff WBC K/uL 3.0 8.9 5.7 FINAL Idalia banerjee [facility] - [facility], [address] [place] [address] 200 [facility] [place] [id number] 0 Phone: () - 12/28 CBC w/ auto diff HGB g/dL 11.3 15.2 10.4 Low FINAL Idalia banerjee [facility] - [facility], [address] [place] [address] 200 [facility] [place] [id number] 0 Phone: () - 12/28 CBC w/ auto diff PLT K/uL 113.0 364.0 312 FINAL Idalia banerjee [facility] - [facility], [address] [place] [address] 200 [facility] [place] [id number] 0 Phone: () - 12/28 CBC w/ auto diff Dawna # (ANC) K/uL 1.6 6.6 4.1 FINAL [facility], [address] [place] [address] 200 [facility] [place] [id number] 0 Phone: () - 12/28 CBC w/ auto diff Dawna % % 43.0 74.0 72.5 FINAL Idalia banerjee [facility] - [facility], [address] [place] [address] 200 [place] [id number] 0 Phone: () - 12/28 CBC w/ auto diff IG % % 0.0 0.5 0.4 FINAL Idalia banerjee [facility] - [place], [address] 200 [facility] [id number] 0 Phone: () - 12/28 CBC w/ auto diff IG # K/uL 0.0 0.03 0.02 FINAL Idalia banerjee [facility] - [place], [address] 200 [facility] [id number] 0 Phone: () - 12/28 CBC w/ auto diff LY % % 14.0 41.0 14.4 FINAL Idalia banerjee [facility] - [place], [address] [place] [address] 200 [facility] [id number] 0 Phone: () - 12/28 CBC w/ auto diff MO % % 6.0 15.0 9.6 FINAL Idalia banerjee [facility] - [place], [address] [place] [address] 200 [facility] [id number] 0 Phone: () - 12/28 CBC w/ auto diff EO % % 0.0 7.0 2.6 FINAL Idalia banerjee [facility] - [place], [address] [place] [address] 200 [facility] [id number] 0 Phone: () - 12/28 CBC w/ auto diff BA % % 0.0 2.0 0.5 FINAL Idalia banerjee [facility] - [place], [address] [place] [address] 200 [facility] [id number] 0 Phone: () - 12/28 CBC w/ auto diff LY # K/uL 0.4 3.6 0.8 FINAL Idalia banerjee [facility] - [place], [address] [place] [address] 200 [facility] [id number] 0 Phone: () - 12/28 CBC w/ auto diff MO # K/uL 0.2 1.3 0.6 FINAL Idalia banerjee [facility] - [place], [address] [place] [address] 200 [facility] [id number] 0 Phone: () - 12/28 CBC w/ auto diff EO # K/uL 0.0 0.6 0.2 FINAL Idalia banerjee [facility] - [place], [address] [place] [address] [address] [place] [id number] 0 Phone: () - 12/28 CBC w/ auto diff BA # K/uL 0.0 0.2 0.0 FINAL Idalia banerjee [facility] - [place], [address] [place] [address] [address] [place] [id number] 0 Phone: () - 12/28 CBC w/ auto diff NRBC % #/100W BC 0.0 0.2 0.0 FINAL Idalia banerjee [facility] - [place], [address] [place] [address] [address] [place] [id number] 0 Phone: () - 12/28 CBC w/ auto diff RBC M/uL 3.9 5.1 2.97 Low FINAL Idalia banerjee [facility] - [place], [address] [place] [address] [address] [place] [id number] 0 Phone: () - 12/28 CBC w/ auto diff HCT % 35.0 48.0 32.3 Low FINAL Idalia banerjee [facility] - [place], [address] [place] [address] [address] [place] [id number] 0 Phone: () - 12/28 CBC w/ auto diff MCV fL 80.0 104.0 108.8 High FINAL Idalia banerjee [facility] - [place], [address] [place] [address] [address] [place] [id number] 0 Phone: () - 12/28 CBC w/ auto diff MCH pg 26.0 35.0 35.0 FINAL Idalia banerjee [facility] - [place], [address] [place] [address] [address] [place] [id number] 0 Phone: () - 12/28 CBC w/ auto diff MCHC g/dL 30.0 35.0 32.2 FINAL Idalia banerjee [facility] - [place], [address] [place] [address] [address] [place] [id number] 0 Phone: () - 12/28 CBC w/ auto diff MPV fL 9.5 13.4 9.9 FINAL Idalia banerjee [facility] - [place], [address] [place] [address] [address] [place] [id number] 0 Phone: () - 12/28 CBC w/ auto diff RDW % 11.4 16.1 15.20 FINAL Idalia banerjee [facility] - [place], [address] [place] [address] [address] [place] [id number] 0 Phone: () - 12/28 iSTAT creat inine panel Creat inine , iSTAT mg/dl 0.6 1.3 0.5 Low FINAL Idaila banerjee [facility] - [place], [address] [place] [address] [address] [place] [id number] 0 Phone: () - 12/28 iSTAT creat inine panel GFR estim ate ml/min /1.73m ^2 116.2 GFR is calculate d using the CKD-EPI equation. FINAL Idalia banerjee [facility] - [place], [address] [place] [address] [address] [place] [id number] 0 Phone: () - 05/01 CBC w/ auto diff PLT K/uL 113.0 364.0 257 FINAL Asim banerjee [facility] - [place], [address] [place] [address] [address] [place] [id number] 0 Phone: () - 05/01 CBC w/ auto diff Dawna # (ANC) K/uL 1.6 6.6 2.2 FINAL Asim banerjee [facility] - [place], [address] [place] [address] [address] [place] [id number] 0 Phone: () - 05/01 CBC w/ auto diff Dawna % % 43.0 74.0 46.0 FINAL Asim banerjee [facility] - [place], [address] [place] [address] [address] [place] [id number] 0 Phone: () - 05/01 CBC w/ auto diff IG % % 0.0 0.5 0.4 FINAL Asim banerjee [facility] - [place], [address] [place] [address] [address] [place] [id number] 0 Phone: () - 05/01 CBC w/ auto diff IG # K/uL 0.0 0.03 0.02 FINAL Asim banerjee [facility] - [place], [address] [place] [address] [address] [place] [id number] 0 Phone: () - 05/01 CBC w/ auto diff LY % % 14.0 41.0 38.7 FINAL Asim banerjee [facility] - [place], [address] [place] [address] [address] [place] [id number] 0 Phone: () - 05/01 CBC w/ auto diff MO % % 6.0 15.0 10.0 FINAL Asim banerjee [facility] - [place], [address] [place] [address] [address] [place] [id number] 0 Phone: () - 05/01 CBC w/ auto diff EO % % 0.0 7.0 4.3 FINAL Asim banerjee [facility] - [place], [address] [place] [address] [address] [place] [id number] 0 Phone: () - 05/01 CBC w/ auto diff BA % % 0.0 2.0 0.6 FINAL Asim banerjee [facility] - [place], [address] [place] [address] [address] [place] [id number] 0 Phone: () - 05/01 CBC w/ auto diff LY # K/uL 0.4 3.6 1.9 FINAL Asim banerjee [facility] - [place], [address] [place] [address] [address] [place] [id number] 0 Phone: () - 05/01 CBC w/ auto diff MO # K/uL 0.2 1.3 0.5 FINAL Asim banerjee [facility] - [place], [address] [place] [address] [address] [place] [id number] 0 Phone: () - 05/01 CBC w/ auto diff EO # K/uL 0.0 0.6 0.2 FINAL Asim banerjee [facility] - [place], [address] [place] [address] [address] [place] [id number] 0 Phone: () - 05/01 CBC w/ auto diff BA # K/uL 0.0 0.2 0.0 FINAL Asim Eli a [facility] - [place], [address] [place] [address] [address] [place] [id number] 0 Phone: () - 05/01 CBC w/ auto diff NRBC % #/100W BC 0.0 0.2 0.0 FINAL Asim banerjee [facility] - [place], [address] [place] [address] 200 [place] [id number] 0 Phone: () - 05/01 CBC w/ auto diff RBC M/uL 3.9 5.1 4.01 FINAL Asim banerjee [facility] - [place], [address] [place] [address] 200 [place] [id number] 0 Phone: () - 05/01 CBC w/ auto diff HCT % 35.0 48.0 36.8 FINAL Asim banerjee [facility] - [place] [facility], [address] [place] [id number] 0 Phone: () - 05/01 CBC w/ auto diff MCV fL 80.0 104.0 91.8 FINAL Asim banerjee [facility] - [place], [address] [place] [address] 200 [place] [id number] 0 Phone: () - 05/01 CBC w/ auto diff MCH pg 26.0 35.0 31.2 FINAL Asim banerjee [facility] - [place], [address] [place] [address] 200 [place] [id number] 0 Phone: () - 05/01 CBC w/ auto diff MCHC g/dL 30.0 35.0 34.0 FINAL Asim banerjee [facility] - [place], [address] [place] [address] 200 [place] [id number] 0 Phone: () - 05/01 CBC w/ auto diff MPV fL 9.5 13.4 9.1 Low FINAL Asim banerjee [facility] - [place] [facility], [address] [place] [address] 200 [place] [id number] 0 Phone: () - 05/01 CBC w/ auto diff RDW % 11.4 16.1 13.90 FINAL Asim banerjee [facility] - [place], [address] [place] [address] 200 [place] [id number] 0 Phone: () - 05/01 CBC w/ auto diff Auto CBC comme nts Slide review to follow FINAL Asim banerjee [facility] - [place] [facility], [address] [place] [address] [address] [place] [id number] 0 Phone: () - 05/01 CBC w/ auto diff WBC K/uL 3.0 8.9 4.9 FINAL Asim banerjee [facility] - [place] [facility], [address] [place] [address] [address] [place] [id number] 0 Phone: () - 05/01 CBC w/ auto diff HGB g/dL 11.3 15.2 12.5 FINAL Asim banerjee [facility] - [place] [facility], [address] [place] [address] [address] [place] [id number] 0 Phone: () - 05/01 Smear revie w panel CBC Smear revie w comme nts Large and-or giant platele ts present Atypica l (Reacti ve and/or Variant ) Lymphs present Abnor mal FINAL Asim banerjee [facility] - [place] [facility], [address] [place] [address] [address] [place] [id number] 0 Phone: () - 05/01 Retic ulocy te count panel Retic ulocy te, absol [place] M/uL 0.02 0.08 0.08 FINAL Asim banerjee [facility] - [place] [facility], [address] [place] [address] [address] [place] [id number] 0 Phone: () - 05/01 Retic ulocy te count panel Retic ulocy te count % 0.4 1.6 2.07 High FINAL Asim banerjee [facility] - [place] [facility], [address] [place] [address] [address] [place] [id number] 0 Phone: () - 05/01 Retic ulocy te count panel Immat ure retic ulocy te fract ion, % % 0.0 16.5 10.10 FINAL Asim banerjee [facility] - [place] [facility], [address] [place] [address] [address] [place] [id number] 0 Phone: () - 05/01 Retic ulocy te count panel Retic ulocy te cellu lar hemog lobin pg 28.0 37.0 36.5 FINAL Asim banerjee [facility] - [place] [facility], [address] [place] [address] [address] [place] [id number] 0 Phone: () - 05/01 Path perip heral blood slide revie w panel Patho logy/ Cytol ogy Morph ology SEE RESULTS BELOW CASE REPORTSpe cial Hematolog y Report Case: [id number] 6Authoriz ing Provider: Asim Cornelius MD Collected [...] iagnosed by left neck lymph node biopsy ([id number] , 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 Staging bonemarro w biopsy [...] specimens .ADDITION AL INFORMATI ONInterpr eted at [facility], [facility] [address], [facility] [place], [place] [address]Iimm Performed by:[facility] - [facility] [place], [place] [address]Rsad e [phone] FINAL Asim Cornelius 05/01 CMP Album in g/dL 3.2 5.2 4.4 FINAL Asim Clem[address] [place] [id number] 0 Phone: () - 05/01 CMP Alkal ine phosp hatas e U/L 46.0 116.0 76 FINAL Asim Clemens a [address] [place] [id number] 0 Phone: () - 05/01 CMP ALT/S GPT U/L 7.0 40.0 12 FINAL Asim Clemensot a [address] [place] [id number] 0 Phone: () - 05/01 CMP AST/S GOT U/L 13.0 40.0 16 FINAL Asim Clemensot a [address] [place] [id number] 0 Phone: () - 05/01 CMP BUN mg/dL 9.0 23.0 19 FINAL Asim Clemensot a [address] [place] [id number] 0 Phone: () - 05/01 CMP Calci um mg/dL 8.7 10.[address] [id number] 0 Phone: () - 05/01 CMP Chlor ray mmol/L 96.0 114.[address] [id number] 0 Phone: () - 05/01 CMP CO2 mmol/L 20.0 31.[address] [id number] 0 Phone: () - 05/01 CMP Creat inine mg/dL 0.5 [address] [id number] 0 Phone: () - 05/01 CMP GFR estim ate ml/min /1.73m ^2 97.0 GFR is calculate d using the CKD-EPI equation. [address] [id number] 0 Phone: () - 05/01 CMP Gluco se mg/dL 73.0 126.0 [address] [id number] 0 Phone: () - 05/01 CMP Potas sium mmol/L 3.5 [address] [id number] 0 Phone: () - 05/01 CMP Sodiu m mmol/L 136.0 145.[address] [id number] 0 Phone: () - 05/01 CMP Bilir ubin, total mg/dL 0.3 1.2 0.[address] [id number] 0 Phone: () - 05/01 CMP Total prote in g/dL 5.7 8.2 6.1 FINAL Asim Eli a [facility] - [place], [address] [facility] [address] [place] [id number] 0 Phone: () - 06/19 Retic ulocy te count panel Retic ulocy te, absol [place] M/uL 0.02 0.08 0.08 FINAL Asim banerjee [facility] - [place] [facility], [address] [place] [address] [address] [place] [id number] 0 Phone: () - 06/19 Retic ulocy te count panel Retic ulocy te count % 0.4 1.6 1.75 High FINAL Asim banerjee [facility] - [place] [facility], [address] [place] [address] [address] [place] [id number] 0 Phone: () - 06/19 Retic ulocy te count panel Immat ure retic ulocy te fract ion, % % 0.0 16.5 10.80 FINAL Asim banerjee [facility] - [place] [facility], [address] [place] [address] [address] [place] [id number] 0 Phone: () - 06/19 Retic ulocy te count panel Retic ulocy te cellu lar hemog lobin pg 28.0 37.0 34.6 FINAL Asim banerjee [facility] - [place] [facility], [address] [place] [address] [address] [place] [id number] 0 Phone: () - 06/19 CBC w/ auto diff WBC K/uL 3.0 8.9 8.7 FINAL Asim banerjee [facility] - [place] [facility], [address] [place] [address] [address] [place] [id number] 0 Phone: () - 06/19 CBC w/ auto diff HGB g/dL 11.3 15.2 14.2 FINAL Asim banerjee [facility] - [place] [facility], [address] [place] [address] [address] [place] [id number] 0 Phone: () - 06/19 CBC w/ auto diff PLT K/uL 113.0 364.0 282 FINAL Asim banerjee [facility] - [place] [facility], [address] [place] [address] [address] [place] [id number] 0 Phone: () - 06/19 CBC w/ auto diff Dawna # (ANC) K/uL 1.6 6.6 4.9 FINAL Asim Clemensot a [facility] - [place], [address] [place] [address] [address] [place] [id number] 0 Phone: () - 06/19 CBC w/ auto diff Dawna % % 43.0 74.0 56.8 FINAL Asimmatt Clemensot a [facility] - [place], [address] [place] [address] [address] [place] [id number] 0 Phone: () - 06/19 CBC w/ auto diff IG % % 0.0 0.5 0.5 FINAL Asimmatt Clemensot a [facility] - [place], [address] [place] [address] [address] [place] [id number] 0 Phone: () - 06/19 CBC w/ auto diff IG # K/uL 0.0 0.03 0.04 High FINAL Asim Clemensot a [facility] - [place], [address] [place] [address] [address] [place] [id number] 0 Phone: () - 06/19 CBC w/ auto diff LY % % 14.0 41.0 33.4 FINAL Asim Clemensot a [facility] - [place], [address] [place] [address] [address] [place] [id number] 0 Phone: () - 06/19 CBC w/ auto diff MO % % 6.0 15.0 7.0 FINAL Asim Clemensot a [facility] - [place], [address] [place] [address] [address] [place] [id number] 0 Phone: () - 06/19 CBC w/ auto diff EO % % 0.0 7.0 1.8 FINAL Asimmatt Clemensot a [facility] - [place], [address] [place] [address] [address] [place] [id number] 0 Phone: () - 06/19 CBC w/ auto diff BA % % 0.0 2.0 0.5 FINAL Asimmatt Clemensot a [facility] - [place], [address] [place] [address] [address] [place] [id number] 0 Phone: () - 06/19 CBC w/ auto diff LY # K/uL 0.4 3.6 2.9 FINAL Asimmatt Cornelius [place] [facility] [place], [address] [place] [address] [address] [place] [id number] 0 Phone: () - 06/19 CBC w/ auto diff MO # K/uL 0.2 1.3 0.6 FINAL Asim banerjee [facility] - [place], [address] [place] [address] [address] [place] [id number] 0 Phone: () - 06/19 CBC w/ auto diff EO # K/uL 0.0 0.6 0.2 FINAL Asim banerjee [facility] - [place], [address] [place] [address] [address] [place] [id number] Phone: () - 06/19 CBC w/ auto diff BA # K/uL 0.0 0.2 0.0 FINAL [facility] [place], [address] [place] [address] [address] [place] [id number] Phone: () - 06/19 CBC w/ auto diff NRBC % #/100W BC 0.0 0.2 0.0 FINAL [facility] [place], [address] [place] [address] [address] [place] [id number] Phone: () - 06/19 CBC w/ auto diff RBC M/uL 3.9 5.1 4.67 FINAL [facility] [place], [address] [place] [address] [address] [place] [id number] Phone: () - 06/19 CBC w/ auto diff HCT % 35.0 48.0 41.7 FINAL [facility] [place], [address] [place] [address] [address] [place] [id number] Phone: () - 06/19 CBC w/ auto diff MCV fL 80.0 104.0 89.3 FINAL [facility] [place], [address] [place] [address] [address] [place] [id number] Phone: () - 06/19 CBC w/ auto diff MCH pg 26.0 35.0 30.4 FINAL [facility] [place], [address] [place] [address] [address] [place] [id number] Phone: () - 06/19 CBC w/ auto diff MCHC g/dL 30.0 35.0 34.1 FINAL [facility], [address] [place] [address] [address] [place] [id number] Phone: () - 06/19 CBC w/ auto diff MPV fL 9.5 13.4 8.8 Low FINAL [facility], [address] [place] [address] [address] [place] [id number] 0 Phone: () - 06/19 CBC w/ auto diff RDW % 11.4 16.1 13.10 FINAL Asim banerjee [facility], [address] [place] [address] [address] [place] [phone] 0 Phone: () - 06/19 LDH panel LDH U/L 120.0 246.0 246 FINAL Asim banerjee [facility], [address] [place] [address] [phone] 0 Phone: () - 06/19 CMP Album in g/dL 3.2 5.2 4.6 FINAL Asim banerjee [facility], [address] [facility] [phone] 0 Phone: () - 06/19 CMP Alkal ine phosp hatas e U/L 46.0 116.0 91 FINAL Asim banerjee [facility], [address] [facility] [phone] 0 Phone: () - 06/19 CMP ALT/S GPT U/L 7.0 40.0 27 FINAL Asim Clemens a [facility], [address] [facility] [phone] 0 Phone: () - 06/19 CMP AST/S GOT U/L 13.0 40.0 34 FINAL Asim banerjee [facility], [address] [facility] [phone] 0 Phone: () - 06/19 CMP BUN mg/dL 9.0 23.0 11 FINAL Asim Cornelius [facility], [address] [facility] 100 [facility] [phone] 0 Phone: () - 06/19 CMP Calci um mg/dL 8.7 10.4 9.4 [facility], [address] [facility] 100 [facility] [phone] 0 Phone: () - 06/19 CMP Chlor ray mmol/L 96.0 114.0 107 [facility] Asim Cornelius [place] [address] [address] [facility] 100 [facility] [phone] 0 Phone: () - 06/19 CMP CO2 [...] end of the 96 hour stability window. [facility] Asim Cornelius [facility], [facility] [address] [phone] 0 Phone: () - 06/19 CMP Creat inine mg/dL 0.5 1.2 0.68 [facility] [place] [address] [phone] Phone: () - 06/19 CMP GFR estim ate ml/min /1.73m ^2 103.9 GFR is calculate d using the CKD-EPI equation. [facility] Asim Cornelius [facility], [facility] [address] [phone] 0 Phone: () - 06/19 CMP Gluco se mg/dL 73.0 126.0 95 [facility] [place] [address] [address] [facility] 100 [facility] [phone] 0 Phone: () - 06/19 CMP Potas sium mmol/L 3.5 5.1 4.1 [facility] [place] [address] [phone] 0 Phone: () - 06/19 CMP Sodiu m mmol/L 136.0 145.0 140 FINAL Asim [facility] [place], [address] [facility] [phone] 0 Phone: () - 06/19 CMP Bilir ubin, total mg/dL 0.3 1.2 0.2 Low FINAL Asim Cornelius [place] [facility] [place], [address] [facility] [phone] 0 Phone: () - 06/19 CMP Total prote in g/dL 5.7 8.2 6.9 FINAL Asim Clemensot a [facility] [place], [address] [facility] [phone] 0 Phone: () - 06/19 Path perip heral blood slide revie w panel Patho logy/ Cytol ogy Morph ology SEE RESULTS BELOW CASE REPORTSpe cial Hematolog y Report Case: [id number] ing Provider: Asim Cornelius MD Collected :06/19/20 21 1340Order ing Location: [facility] Received: 1 1734Patho logist: Elvie Hernández MDSpecime n: BloodFINA L DIAGNOSIS PERIPHERA L BLOOD:1. Negative for circulati ng blasts2. Within normal limitsEle ctronical ly signed by Elvie Hernández MD on 06/20/2021 at 1:03 PMCOMMENT This case was also reviewed by Mis [place], [place] ([employer] [employer]).CL INICAL INFORMATI ONThe patient is a 46-year-o ld female with a history of acute lymphoid leukemia. 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 Staging bone marrow biopsy was negative forlympho ma ([id number]) . Her most recent periphera l blood morpholog y 2019 ([id number] ,05/01/2020 ) was negative for circulati ng [...] blood smear.ADD ITIONAL INFORMATI ONInterpr eted at [email or web address], [facility] - [address], [place], [place] [address]Ivru Performed by:[facility] - [facility] [place] [address]Jing e : FINAL Asim Cornelius 01/19 [facility] other lab See family readiness support assistant d 05/01 [facility] other lab See family readiness support assistant d 05/06 LDH panel LDH U/L 120.0 246.0 191 FINAL Deepthi Clemensot [facility] [place], [address] [facility] [phone] 0 Phone: () - 05/06 CMP Album in g/dL 3.2 5.2 4.7 FINAL [facility], [address] [facility] [address] [phone] 0 Phone: () - 05/06 CMP Alkal ine phosp hatas e U/L 46.0 116.0 73 FINAL Deepthi Dodge [place] [address] [address] [facility] [address] [phone] 0 Phone: () - 05/06 CMP ALT/S GPT U/L 7.0 40.0 19 FINAL Deepthi Dodge [place] [address] [address] [facility] [address] [phone] 0 Phone: () - 05/06 CMP AST/S GOT U/L 13.0 40.0 21 FINAL [place] [address] [address] [facility] [address] [phone] 0 Phone: () - 05/06 CMP BUN mg/dL 9.0 23.0 16.0 FINAL Deepthi Dodge [facility] [address] [facility] [address] [phone] 0 Phone: () - 05/06 CMP Calci um mg/dL 8.7 10.4 9.8 FINAL Deepthi Dodge [place] [address] [address] [facility] [address] [phone] 0 Phone: () - 05/06 CMP Chlor ray mmol/L 96.0 114.0 107 FINAL Deepthi Dodge [facility] [address] [facility] [address] [phone] 0 Phone: () - 05/06 CMP CO2 [...] 96 hour stability window. FINAL Deepthi Dodge [place] [address] [phone] 0 Phone: () - 05/06 CMP Creat inine mg/dL 0.5 1.2 0.80 FINAL Deepthi Clemens [place] [address] [phone] 0 Phone: () - 05/06 CMP GFR estim ate ml/min /1.73m ^2 90.1 GFR is calculate d using the CKD-EPI equation. FINAL Deep[place] [address] [phone] 0 Phone: () - 05/06 CMP Gluco se mg/dL 73.0 126.0 128 High FINAL Deep[place] [address] [phone] 0 Phone: () - 05/06 CMP Potas sium mmol/L 3.5 5.1 3.9 FINAL [place] [address] [phone] 0 Phone: () - 05/06 CMP Sodiu m mmol/L 136.0 145.0 142 FINAL Deepthi Clemens [place] [address] [phone] 0 Phone: () - 05/06 CMP Bilir ubin, total mg/dL 0.3 1.2 0.2 Low FINAL [place] [address] [phone] 0 Phone: () - 05/06 CMP Total prote in g/dL 5.7 8.2 7.1 FINAL Deepthi Dodge [place] [address] [phone] 0 Phone: () - 05/06 Retic ulocy te count panel Retic ulocy te, absol [place] M/uL 0.02 0.08 0.07 FINAL [facility], [address] [facility] [phone] 0 Phone: () - 05/06 Retic ulocy te count panel Retic ulocy te count % 0.4 1.6 1.60 FINAL Deepthi banerjee [facility] - [place] [facility], [address] 200 [facility] [place] [phone] 0 Phone: () - 05/06 Retic ulocy te count panel Immat ure retic ulocy te fract ion, % % 0.0 16.5 9.70 FINAL Deepthi banerjee [facility] [place] [facility], [address] 200 [facility] [place] [phone] 0 Phone: () - 05/06 Retic ulocy te count panel Retic ulocy te cellu lar hemog lobin pg 28.0 37.0 33.0 FINAL Deepthi banerjee [facility], [address] [place] [address] [address] [facility] [place] [phone] 0 Phone: () - 05/06 CBC w/ auto diff WBC K/uL 3.0 8.9 8.4 FINAL Deepthi banerjee [facility], [address] [place] [address] [address] [facility] [place] [phone] 0 Phone: () - 05/06 CBC w/ auto diff HGB g/dL 11.3 15.2 13.6 FINAL Deepthi banerjee [facility], [address] [place] [address] [address] [facility] [place] [phone] 0 Phone: () - 05/06 CBC w/ auto diff PLT K/uL 113.0 364.0 266 FINAL Deepthi banerjee [facility], [address] [place] [address] [address] [facility] [place] [phone] 0 Phone: () - 05/06 CBC w/ auto diff Dawna # (ANC) K/uL 1.6 6.6 3.9 FINAL Deepthi banerjee [facility], [address] [place] [address] [address] [facility] [place] [phone] 0 Phone: () - 05/06 CBC w/ auto diff Dawna % % 43.0 74.0 46.7 FINAL Deepthi Clemens [place] [facility] [place], [address] [place] [address] [address] [place] [phone] 0 Phone: () - 05/06 CBC w/ auto diff IG % % 0.0 0.5 0.5 FINAL Deepthi banerjee [facility] [place], [address] [place] [address] [address] [place] [phone] 0 Phone: () - 05/06 CBC w/ auto diff IG # K/uL 0.0 0.03 0.04 High FINAL Deepthi banerjee [facility] [place], [address] [place] [address] [address] [place] [phone] 0 Phone: () - 05/06 CBC w/ auto diff LY % % 14.0 41.0 44.8 High FINAL Deepthi banerjee [facility] - [place] [facility], [address] [place] [address] [address] [place] [phone] 0 Phone: () - 05/06 CBC w/ auto diff MO % % 6.0 15.0 6.2 FINAL Deepthi banerjee [facility] [place], [address] [place] [address] [address] [place] [phone] 0 Phone: () - 05/06 CBC w/ auto diff EO % % 0.0 7.0 1.4 FINAL Deepthi banerjee [facility] - [place], [address] [place] [address] [address] [place] [phone] 0 Phone: () - 05/06 CBC w/ auto diff BA % % 0.0 2.0 0.4 FINAL Deepthi banerjee [facility] [place], [address] [place] [address] [address] [place] [phone] 0 Phone: () - 05/06 CBC w/ auto diff LY # K/uL 0.4 3.6 3.8 High FINAL Deepthi banerjee [facility] - [place] [facility], [address] [place] [address] [address] [place] [phone] 0 Phone: () - 05/06 CBC w/ auto diff MO # K/uL 0.2 1.3 0.5 FINAL Deepthi banerjee [facility] - [place], [address] [place] [address] [address] [place] [phone] 0 Phone: () - 05/06 CBC w/ auto diff EO # K/uL 0.0 0.6 0.1 FINAL Deepthi banerjee [facility] - [place] [facility], [address] [place] [address] [address] [place] [phone] 0 Phone: () - 05/06 CBC w/ auto diff BA # K/uL 0.0 0.2 0.0 FINAL Deepthi banerjee [facility] [place] [facility], [address] [place] [address] [address] [place] [phone] 0 Phone: () - 05/06 CBC w/ auto diff NRBC % #/100W BC 0.0 0.2 0.0 FINAL Deepthi banerjee [facility] [place] [facility], [address] [place] [address] [address] [place] [phone] 0 Phone: () - 05/06 CBC w/ auto diff RBC M/uL 3.9 5.1 4.57 FINAL Deepthi banerjee [facility] - [place] [facility], [address] [place] [address] [address] [place] [phone] 0 Phone: () - 05/06 CBC w/ auto diff HCT % 35.0 48.0 40.7 FINAL Deepthi banerjee [facility] - [place] [facility], [address] [place] [address] [address] [place] [phone] 0 Phone: () - 05/06 CBC w/ auto diff MCV fL 80.0 104.0 89.1 FINAL Deepthi banerjee [facility] - [place] [facility], [address] [place] [address] [address] [place] [phone] 0 Phone: () - 05/06 CBC w/ auto diff MCH pg 26.0 35.0 29.8 FINAL Deepthi banerjee [facility] - [place] [facility], [address] [place] [address] [address] [place] [phone] 0 Phone: () - 05/06 CBC w/ auto diff MCHC g/dL 30.0 35.0 33.4 FINAL Deepthi banerjee [facility] - [place] [facility], [address] [place] [address] [address] [place] [phone] 0 Phone: () - 05/06 CBC w/ auto diff MPV fL 9.5 13.4 9.3 Low FINAL Deepthi banerjee Oncology [facility], [address] [place] [address] 200 [facility] [phone] 0 Phone: () - 05/06 CBC w/ auto diff RDW % 11.4 16.1 13.60 FINAL Deepthi banerjee Oncology [facility], [address] 200 [facility] [phone] 0 Phone: () - Medications Date Name [...]
--- OUTSIDE RECORDS SUMMARY | 2025-03-02 09:18 | XMS_ITS | Clinical Summary ---
Author Organization [facility] Address [facility] [place] [address] Care Team Providers Care Shake Cutter Name Role Phone Wilfredo Ellis MD Primary Care Provider [phone] Allergies Active Allergy Reactions Criticality Noted Date [...] on file Legal Sex Female 6:48 AM [employer] Gender Identity Not on file Sexual Orientation Not on file Obstetrics History Last Filed Vital Signs Vital Sign Reading Time Taken Comments Blood Pressure 136/78 05/11/2023 1:53 PM CDT Pulse 95 05/11/2023 1:53 PM CDT Temperature 37.3 C (99.2 F) 01/19/2023 11:49 AM [employer] MOTORMAN Respiratory Rate 22 01/19/2023 11:49 AM ELEVATED MOTORMAN Oxygen Saturation 95% 05/11/2023 1:53 PM CDT [...] age 18+ 05/11/2024 0 05/11/2023 Influenza Vaccine (Season Ended) 2025 HIV for age 15-65 Completed 05/03/2019 Procedures Procedure Name Priority Date/Time Associated Diagnosis Comments ANTI HIV 1/2 BARRON 05/03/2019 4:26 AM CDT XR MAMMO BILAT SCREEN FFDM (IA) Routine 01/15/2015 11:43 AM ELEVATED MOTORMAN Other screening mammogram from Last 3 Months or Most Recently Relevant to Health Maintenance Results * ANTI HIV 1/2 (05/03/2019 4:26 AM CDT) HIV-1/HIV-2 ANTIBODY Non-Reacti ve Non-Reacti ve 05/03/2019 7:15 PM CDT [facility] Comment:HIV-1 p24 and HIV-1/ HIV-2 Ab not detected. Blood BLOOD SPECIMEN / Unknown Non-Lab Venipuncture / Unknown 05/03/2019 4:26 AM CDT 05/03/2019 4:32 AM CDT us Lili Christopher MD SEND OUTS Final Result [facility] [address] [place] [address], [place] * XR MAMMO BILAT SCREEN FFDM (01/15/2015 11:43 AM ELEVATED MOTORMAN) Anatomical Region Laterality Modality BREASTS, Breast Left, Breast Right Bilateral Mammography Impressions 01/15/2015 3:29 PM ELEVATED MOTORMAN There is no radiographic evidence for malignancy. Recommend annual mammograms. A lay language report of this examination will be provided to the patient. MAMMOGRAM ASSESSMENT: ACR 1 Negative Narrative 01/15/2015 3:29 PM ELEVATED MOTORMAN XR MAMMO BILAT SCREEN FFDM [G0202.0] CLINICAL [...] Most Recently Relevant to Health Maintenance Insurance [employer] Advance Directives * Full Code (Latest Code [...] 12:26 PM 07/19/2019 2:38 PM Care Teams Shake Cutter Relationship Specialty Start Date End Date Wilfredo Ellis MD PCP - General 04/25/08
--- OUTSIDE RECORDS SUMMARY | 2025-03-02 09:19 | XMS_ITS ---
Author Name Interface, Z0Sisluoy lity Address [address] [facility] [address] [address] Organization [facility] Address [address] [facility] [address] [address] Care Team Providers Care Rn Case Manager Hospice Name Role Phone Asim Cornelius Unavailable Unavailable [...] CASE REPORTSpe cial Hematolog y Report Case: [id number] ing Provider: Asim Cornelius MD Collected :05/01/20 20 1447Order ing Location: [facility] Received: 0 1212Patho logist: [...] iagnosed by left neck lymph node biopsy ([id number] , 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 Staging bonemarro w biopsy [...] specimens .ADDITION AL INFORMATI ONInterpr eted at [facility], [facility] - [address], [facility] [place] [address]Rcsx Performed by:[facility] [address] - [facility], [place] [address]Tlgn e : FINAL Asim Ashli 05/01 Retic ulocy te count panel Retic ulocy te, absol iliamna M/uL 0.02 0.08 0.08 FINAL Asim Clemens a Oncology - [facility] lis, [address] [place] [address] [address] [place] [id number] 0 Phone: () - 05/01 Retic ulocy te count panel Retic ulocy te count % 0.4 1.6 2.07 High FINAL Asim Clemensot a [facility] - [facility], [address] [place] [id number] 0 Phone: () - 05/01 Retic ulocy te count panel Immat ure retic ulocy te fract ion, % % 0.0 16.5 10.10 FINAL Asim banerjee [facility]cology - [place] [facility], [address] [place] [phone] 0 Phone: () - 05/01 Retic ulocy te count panel Retic ulocy te cellu lar hemog lobin pg 28.0 37.0 36.5 FINAL Asim banerjee Oncology - [place] [facility], [address] [place] [address] [address] [place] [id number] 0 Phone: () - 05/01 Smear revie w panel CBC Smear revie w comme nts Large and-or giant platele ts present Atypica l (Reacti ve and/or Variant ) Lymphs present Abnor mal FINAL Asim banerjee Oncology - [place] [facility], [address] [place] [id number] 0 Phone: () - 05/01 CBC w/ auto diff PLT K/uL 113.0 364.0 257 FINAL Asim banerjee Oncology - [place] [facility], [address] [place] [id number] 0 Phone: () - 05/01 CBC w/ auto diff Dawna # (ANC) K/uL 1.6 6.6 2.2 FINAL Asim banerjee Oncology - [place] [facility], [address] [place] [id number] 0 Phone: () - 05/01 CBC w/ auto diff Dawna % % 43.0 74.0 46.0 FINAL Asim banerjee Oncology - [place] [facility], [address] [place] [address] [address] [place] [id number] 0 Phone: () - 05/01 CBC w/ auto diff IG % % 0.0 0.5 0.4 FINAL Asim banerjee Oncology - [place] [facility], [address] [place] [address] [address] [place] [id number] 0 Phone: () - 05/01 CBC w/ auto diff IG # K/uL 0.0 0.03 0.02 FINAL Asim banerjee Oncology - [place] [facility], [address] [place] [address] [address] [place] [id number] 0 Phone: () - 05/01 CBC w/ auto diff LY % % 14.0 41.0 38.7 FINAL Asim Clemensot a Oncology - [place] [facility], [address] [place] [address] 200 [place] [id number] 0 Phone: () - 05/01 CBC w/ auto diff MO % % 6.0 15.0 10.0 FINAL Asimmatt Clemensot a Oncology - [place] [facility], [address] [place] [address] 200 [place] [id number] 0 Phone: () - 05/01 CBC w/ auto diff EO % % 0.0 7.0 4.3 FINAL Asimmatt Clemensot a Oncology - [place] [facility], [address] [place] [id number] 0 Phone: () - 05/01 CBC w/ auto diff BA % % 0.0 2.0 0.6 FINAL Asim Clemensot a Oncology - [place] [facility], [address] 200 [facility] [place] [id number] 0 Phone: () - 05/01 CBC w/ auto diff LY # K/uL 0.4 3.6 1.9 FINAL Asimmatt Clemensot a Oncology - [place] [facility], [address] [place] [id number] 0 Phone: () - 05/01 CBC w/ auto diff MO # K/uL 0.2 1.3 0.5 FINAL Asim Clemensot a Oncology - [place] [facility], [address] [place] [address] 200 [place] [id number] 0 Phone: () - 05/01 CBC w/ auto diff EO # K/uL 0.0 0.6 0.2 FINAL Asimmatt Clemensot a Oncology - [place] [facility], [address] [place] [id number] 0 Phone: () - 05/01 CBC w/ auto diff BA # K/uL 0.0 0.2 0.0 FINAL Asimmatt Clemensot a Oncology - [place] [facility], [address] [place] [address] [address] [place] [id number] 0 Phone: () - 05/01 CBC w/ auto diff NRBC % #/100W BC 0.0 0.2 0.0 FINAL Asim banerjee Oncology - [place] [facility], [address] [place] [address] [address] [place] [id number] 0 Phone: () - 05/01 CBC w/ auto diff RBC M/uL 3.9 5.1 4.01 FINAL Asim banerjee Oncology - [place] [facility], [address] [place] [address] [address] [place] [id number] 0 Phone: () - 05/01 CBC w/ auto diff HCT % 35.0 48.0 36.8 FINAL Asim banerjee Oncology - [place] [facility], [address] [place] [address] [address] [place] [id number] 0 Phone: () - 05/01 CBC w/ auto diff MCV fL 80.0 104.0 91.8 FINAL Asim banerjee Oncology - [place] [facility], [address] [place] [address] [address] [place] [id number] 0 Phone: () - 05/01 CBC w/ auto diff MCH pg 26.0 35.0 31.2 FINAL Asim banerjee Oncology - [place] [facility], [address] [place] [address] [address] [place] [id number] 0 Phone: () - 05/01 CBC w/ auto diff MCHC g/dL 30.0 35.0 34.0 FINAL Asim banerjee Oncology - [place] [facility], [address] [place] [address] [address] [place] [id number] 0 Phone: () - 05/01 CBC w/ auto diff MPV fL 9.5 13.4 9.1 Low FINAL Asim banerjee Oncology - [place] [facility], [address] [place] [address] [address] [place] [id number] 0 Phone: () - 05/01 CBC w/ auto diff RDW % 11.4 16.1 13.90 FINAL Asim banerjee Oncology - [place] [facility], [address] [place] [address] [address] [place] [id number] 0 Phone: () - 05/01 CBC w/ auto diff Auto CBC comme nts Slide review to follow FINAL Asim banerjee Oncology - [place] [facility], [address] [place] [address] [address] [place] [id number] 0 Phone: () - 05/01 CBC w/ auto diff WBC K/uL 3.0 8.9 4.9 FINAL Asim banerjee [facility], [address] [place] [id number] 0 Phone: () - 05/01 CBC w/ auto diff HGB g/dL 11.3 15.2 12.5 FINAL Asim banerjee [facility], [address] [place] [id number] 0 Phone: () - 05/01 CMP Album in g/dL 3.2 5.2 4.4 FINAL Asim banerjee [address] [id number] 0 Phone: () - 05/01 CMP Alkal ine phosp hatas e U/L 46.0 116.0 76 FINAL Asimmatt Clemens [place] [address] [id number] 0 Phone: () - 05/01 CMP ALT/S GPT U/L 7.0 40.0 12 FINAL Asimmatt Clemens[address] [place] [id number] 0 Phone: () - 05/01 CMP AST/S GOT U/L 13.0 40.0 16 FINAL Asimmatt Clemens [place] [address] [id number] 0 Phone: () - 05/01 CMP BUN mg/dL 9.0 23.0 19 FINAL Asimmatt Clemens [place] [address] [place] [id number] 0 Phone: () - 05/01 CMP Calci um mg/dL 8.7 10.4 9.4 FINAL Asimmatt banerjee [address] [place] [id number] 0 Phone: () - 05/01 CMP Chlor ray mmol/L 96.0 114.0 107 FINAL Asimmatt Clemens[address] [id number] 0 Phone: () - 05/01 CMP CO2 mmol/L 20.0 31.0 [address] [id number] 0 Phone: () - 05/01 CMP Creat inine mg/dL 0.5 1.2 0.[address] [id number] 0 Phone: () - 05/01 CMP GFR estim ate ml/min /1.73m ^2 97.0 GFR is calculate d using the CKD-EPI equation. FINAL [address] [phone] 0 Phone: () - 05/01 CMP Gluco se mg/dL 73.0 126.0 150 High FINAL [address] [id number] 0 Phone: () - 05/01 CMP Potas sium mmol/L 3.5 5.[address] [place] [id number] 0 Phone: () - 05/01 CMP Sodiu m mmol/L 136.0 145.[address] [id number] 0 Phone: () - 05/01 CMP Bilir ubin, total mg/dL 0.3 1.2 0.2 Low FINAL [address] [place] [id number] 0 Phone: () - 05/01 CMP Total prote in g/dL 5.7 8.[address] [place] [id number] 0 Phone: () - 06/19 Retic ulocy te count panel Retic ulocy te, absol iliamna M/uL 0.02 0.08 0.08 FINAL [facility] lis, [address] [place] [id number] 0 Phone: () - 06/19 Retic ulocy te count panel Retic ulocy te count % 0.4 1.6 1.75 High FINAL Asim banerjee Oncology - [place] [facility], [address] [place] [id number] 0 Phone: () - 06/19 Retic ulocy te count panel Immat ure retic ulocy te fract ion, % % 0.0 16.5 10.80 FINAL Asim banerjee Oncology - [place] [facility], [address] [place] [address] 200 [place] [id number] 0 Phone: () - 06/19 Retic ulocy te count panel Retic ulocy te cellu lar hemog lobin pg 28.0 37.0 34.6 FINAL Asim banerjee Oncology - [place] [facility], [address] [place] [id number] 0 Phone: () - 06/19 CBC w/ auto diff WBC K/uL 3.0 8.9 8.7 FINAL Asim banerjee Oncology - [place] [facility], [address] [place] [id number] 0 Phone: () - 06/19 CBC w/ auto diff HGB g/dL 11.3 15.2 14.2 FINAL Asim banerjee Oncology - [place] [facility], [address] [place] [id number] 0 Phone: () - 06/19 CBC w/ auto diff PLT K/uL 113.0 364.0 282 FINAL Asim banerjee Oncology - [place] [facility], [address] [place] [id number] 0 Phone: () - 06/19 CBC w/ auto diff Dawna # (ANC) K/uL 1.6 6.6 4.9 FINAL Asim banerjee [facility]cology - [place] [facility], [address] [place] [id number] 0 Phone: () - 06/19 CBC w/ auto diff Dawna % % 43.0 74.0 56.8 FINAL Asim banerjee Oncology - [place] [facility], [address] [place] [id number] 0 Phone: () - 06/19 CBC w/ auto diff IG % % 0.0 0.5 0.5 FINAL Asim banerjee Oncology - [place] [facility], [address] [place] [id number] 0 Phone: () - 06/19 CBC w/ auto diff IG # K/uL 0.0 0.03 0.04 High FINAL Asim banerjee Oncology - [place] [facility], [address] [place] [address] 200 [place] [id number] 0 Phone: () - 06/19 CBC w/ auto diff LY % % 14.0 41.0 33.4 FINAL Asim banerjee Oncology - [place] [facility], [address] [place] [id number] 0 Phone: () - 06/19 CBC w/ auto diff MO % % 6.0 15.0 7.0 FINAL Asim banerjee Oncology - [place] [facility], [address] [facility] [place] [id number] 0 Phone: () - 06/19 CBC w/ auto diff EO % % 0.0 7.0 1.8 FINAL Asim banerjee Oncology - [place] [facility], [address] [place] [id number] 0 Phone: () - 06/19 CBC w/ auto diff BA % % 0.0 2.0 0.5 FINAL Asim Eli a [facility]cology - [place] [facility], [address] [place] [id number] 0 Phone: () - 06/19 CBC w/ auto diff LY # K/uL 0.4 3.6 2.9 FINAL Asimmatt Eli a Oncology - [place] [facility], [facility] [address] [place] [id number] 0 Phone: () - 06/19 CBC w/ auto diff MO # K/uL 0.2 1.3 0.6 FINAL Asim Eli a Oncology - [place] [facility], [address] [place] [id number] 0 Phone: () - 06/19 CBC w/ auto diff EO # K/uL 0.0 0.6 0.2 FINAL Asim banerjee Oncology - [place] [facility], [address] [place] [address] [address] [place] [id number] 0 Phone: () - 06/19 CBC w/ auto diff BA # K/uL 0.0 0.2 0.0 FINAL Asim banerjee Oncology - [place] [facility], [address] [place] [address] [address] [place] [id number] 0 Phone: () - 06/19 CBC w/ auto diff NRBC % #/100W BC 0.0 0.2 0.0 FINAL Asim banerjee Oncology - [place] [facility], [address] [place] [address] [address] [place] [id number] 0 Phone: () - 06/19 CBC w/ auto diff RBC M/uL 3.9 5.1 4.67 FINAL Asim banerjee Oncology - [place] [facility], [address] [place] [address] [address] [place] [id number] 0 Phone: () - 06/19 CBC w/ auto diff HCT % 35.0 48.0 41.7 FINAL Asim banerjee Oncology - [place] [facility], [address] [place] [address] [address] [place] [id number] 0 Phone: () - 06/19 CBC w/ auto diff MCV fL 80.0 104.0 89.3 FINAL Asim banerjee Oncology - [place] [facility], [address] [place] [address] [address] [place] [id number] 0 Phone: () - 06/19 CBC w/ auto diff MCH pg 26.0 35.0 30.4 FINAL Asim banerjee Oncology - [place] [facility], [address] [place] [address] [address] [place] [id number] 0 Phone: () - 06/19 CBC w/ auto diff MCHC g/dL 30.0 35.0 34.1 FINAL Asim banerjee Oncology - [place] [facility], [address] [place] [address] [address] [place] [id number] 0 Phone: () - 06/19 CBC w/ auto diff MPV fL 9.5 13.4 8.8 Low FINAL Asim banerjee [facility] lis, [address] [place] [address] [address] [place] [id number] 0 Phone: () - 06/19 CBC w/ auto diff RDW % 11.4 16.1 13.10 FINAL Asim banerjee [facility], [address] [place] [address] [address] [place] [id number] 0 Phone: () - 06/19 LDH panel LDH U/L 120.0 246.0 246 FINAL Asim banerjee [facility], [address] [place] [address] [id number] 0 Phone: () - 06/19 CMP Album in g/dL 3.2 5.2 4.6 FINAL Asim banerjee [facility], [address] [facility] [address] [place] [address] [id number] 0 Phone: () - 06/19 CMP Alkal ine phosp hatas e U/L 46.0 116.0 91 FINAL Asim Clemens [facility], [address] [place] [address] [id number] 0 Phone: () - 06/19 CMP ALT/S GPT U/L 7.0 40.0 27 [facility] [address] [facility] [address] [place] [address] [id number] 0 Phone: () - 06/19 CMP AST/S GOT U/L 13.0 40.0 34 [facility] [address] [facility] [address] [place] [address] [id number] 0 Phone: () - 06/19 CMP BUN mg/dL 9.0 23.0 11 FINAL Asim Clemens lavonne [facility] [address] [facility] [address] [place] [address] [id number] 0 Phone: () - 06/19 CMP Calci um mg/dL 8.7 10.4 9.4 FINAL Asim banerjee [facility], [address] [place] [address] [id number] 0 Phone: () - 06/19 CMP Chlor rya mmol/L 96.0 114.0 107 FINAL Asim [facility], [address] [facility] [facility] [id number] 0 Phone: () - 06/19 CMP CO2 [...] the 96 hour stability window. FINAL Asim [facility], [address] [id number] 0 Phone: () - 06/19 CMP Creat inine mg/dL 0.5 1.2 0.68 [facility] [address] [id number] 0 Phone: () - 06/19 CMP GFR estim ate ml/min /1.73m ^2 103.9 GFR is calculate d using the CKD-EPI equation. FINAL [place] [address] [id number] 0 Phone: () - 06/19 CMP Gluco se mg/dL 73.0 126.0 95 [facility] [address] [facility] [address] [id number] 0 Phone: () - 06/19 CMP Potas sium mmol/L 3.5 5.1 4.1 [facility] [address] [facility] [address] [id number] 0 Phone: () - 06/19 CMP Sodiu m mmol/L 136.0 145.0 140 [facility] [address] [facility] [address] [id number] 0 Phone: () - 06/19 CMP Bilir ubin, total mg/dL 0.3 1.2 0.2 Low [facility], [address] [facility] [address] [id number] 0 Phone: () - 06/19 CMP Total prote in g/dL 5.7 8.2 6.9 FINAL Asim Cornelius [place] [facility] [place], [address] [facility] [id number] 0 Phone: () - 06/19 Path perip heral blood slide revie w panel Patho logy/ Cytol ogy Morph ology SEE RESULTS BELOW CASE REPORTSpe cial Hematolog y Report Case: [id number] ing Provider: Asim Cornelius MD Collected :06/19/20 21 1340Order ing Location: [facility] Received: 1 1734Patho logist: Elvie Hernández MDSpecime n: BloodFINA L DIAGNOSIS PERIPHERA L BLOOD:1. Negative for circulati ng blasts2. Within normal limitsEle ctronical ly signed by Elvie Hernández MD on 06/20/2021 at 1:03 PMCOMMENT This case was also reviewed by [place], [place] ([facility]).CL INICAL INFORMATI ONThe patient is a 46-year-o ld female with a history of acute lymphoid leukemia. 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 Staging bone marrow biopsy was negative forlympho ma ([id number]) . Her most recent periphera l blood morpholog y 2019 ([id number] ,05/01/2020 ) was negative for circulati ng [...] blood smear.ADD ITIONAL INFORMATI ONInterpr eted at [facility], [facility] - [address], [place], [place] [address]Hfjt Performed by:[facility] [address] - [place], [place] [address]Mclc e : FINAL Asim Cornelius 01/19 [facility] other lab See brush loader and handle attacher d 05/01 [facility] other lab See brush loader and handle attacher d 05/06 LDH panel LDH U/L 120.0 246.0 191 FINAL [facility], [address] [place] [id number] 0 Phone: () - 05/06 CMP Album in g/dL 3.2 5.2 4.7 FINAL Deepthi Steelsalimayobany [facility], [address] [place] [id number] 0 Phone: () - 05/06 CMP Alkal ine phosp hatas e U/L 46.0 116.0 73 FINAL Deepthi Steelshannon [facility], [address] [id number] 0 Phone: () - 05/06 CMP ALT/S GPT U/L 7.0 40.0 19 FINAL Deepthi banerjee [place] [address] [id number] 0 Phone: () - 05/06 CMP AST/S GOT U/L 13.0 40.0 21 FINAL [place] [address] [id number] 0 Phone: () - 05/06 CMP BUN mg/dL 9.0 23.0 16.0 FINAL Deepthi Dodge [place] [address] [id number] 0 Phone: () - 05/06 CMP Calci um mg/dL 8.7 10.4 9.8 FINAL Deepthi Dodge [place] [address] [id number] 0 Phone: () - 05/06 CMP Chlor ray mmol/L 96.0 114.0 107 FINAL Deepthi Steelyobany [place] [address] [id number] 0 Phone: () - 05/06 CMP CO2 [...] the 96 hour stability window. FINAL [place] [address] [id number] 0 Phone: () - 05/06 CMP Creat inine mg/dL 0.5 1.2 0.80 FINAL Deepthi Dodge [place] [address] [address] [facility] [address] [phone] 0 Phone: () - 05/06 CMP GFR estim ate ml/min /1.73m ^2 90.1 GFR is calculate d using the CKD-EPI equation. FINAL Deepthi Clemens lavonne [facility], [address] [phone] 0 Phone: () - 05/06 CMP Gluco se mg/dL 73.0 126.0 128 High FINAL [facility], [address] [id number] 0 Phone: () - 05/06 CMP Potas sium mmol/L 3.5 5.1 3.9 FINAL [facility], [address] [id number] 0 Phone: () - 05/06 CMP Sodiu m mmol/L 136.0 145.0 142 FINAL [facility], [address] [id number] 0 Phone: () - 05/06 CMP Bilir ubin, total mg/dL 0.3 1.2 0.2 Low FINAL [facility], [address] [id number] 0 Phone: () - 05/06 CMP Total prote in g/dL 5.7 8.2 7.1 FINAL Deepthi Dodge [facility], [address] [id number] 0 Phone: () - 05/06 Retic ulocy te count panel Retic ulocy te, absol iliamna M/uL 0.02 0.08 0.[address] [facility], [address] [place] [address] 200 [facility] [id number] 0 Phone: () - 05/06 Retic ulocy te count panel Retic ulocy te count % 0.4 1.6 1.[address] [facility], [address] [place] [address] 200 [facility] [id number] 0 Phone: () - 05/06 Retic ulocy te count panel Immat ure retic ulocy te fract ion, % % 0.0 16.5 9.70 FINAL Deepthi banerjee [facility] - [place] [facility], [address] [place] [address] [address] [place] [id number] 0 Phone: () - 05/06 Retic ulocy te count panel Retic ulocy te cellu lar hemog lobin pg 28.0 37.0 33.0 FINAL Deepthi banerjee [facility] - [place] [facility], [address] [place] [address] [address] [place] [id number] 0 Phone: () - 05/06 CBC w/ auto diff WBC K/uL 3.0 8.9 8.4 FINAL Deepthi Clemens [place] [facility] - [place] [facility], [address] [place] [id number] 0 Phone: () - 05/06 CBC w/ auto diff HGB g/dL 11.3 15.2 13.6 FINAL Deepthi Clemens [facility], [address] [place] [id number] 0 Phone: () - 05/06 CBC w/ auto diff PLT K/uL 113.0 364.0 266 FINAL Deepthi Clemens [place] [facility] - [place] [facility], [address] [place] [id number] 0 Phone: () - 05/06 CBC w/ auto diff Dawna # (ANC) K/uL 1.6 6.6 3.9 FINAL Deepthi Clemens [facility], [address] [place] [address] [address] [place] [id number] 0 Phone: () - 05/06 CBC w/ auto diff Dawna % % 43.0 74.0 46.7 FINAL Deepthi banerjee [facility] - [place] [facility], [address] [place] [address] [address] [place] [id number] 0 Phone: () - 05/06 CBC w/ auto diff IG % % 0.0 0.5 0.5 FINAL Deepthi Clemens [place] [facility] - [place] [facility], [address] [place] [address] [address] [place] [id number] 0 Phone: () - 05/06 CBC w/ auto diff IG # K/uL 0.0 0.03 0.04 High FINAL Deepthi banerjee [facility] - [place], [address] [place] [address] [address] [place] [id number] 0 Phone: () - 05/06 CBC w/ auto diff LY % % 14.0 41.0 44.8 High FINAL Deepthi banerjee [facility] - [place], [address] [place] [address] [address] [place] [id number] 0 Phone: () - 05/06 CBC w/ auto diff MO % % 6.0 15.0 6.2 FINAL Deepthi Eli a [facility] - [place], [address] [place] [address] [address] [place] [id number] 0 Phone: () - 05/06 CBC w/ auto diff EO % % 0.0 7.0 1.4 FINAL Deepthi Eli a [facility] - [place], [address] [place] [address] [address] [place] [id number] 0 Phone: () - 05/06 CBC w/ auto diff BA % % 0.0 2.0 0.4 FINAL Deepthi Eli a [facility] - [place], [address] [place] [address] [address] [place] [id number] 0 Phone: () - 05/06 CBC w/ auto diff LY # K/uL 0.4 3.6 3.8 High FINAL Deepthi Eli a [facility] - [place], [address] [place] [address] [address] [place] [id number] 0 Phone: () - 05/06 CBC w/ auto diff MO # K/uL 0.2 1.3 0.5 FINAL Deepthi banerjee [facility] - [place], [address] [place] [address] [address] [place] [id number] 0 Phone: () - 05/06 CBC w/ auto diff EO # K/uL 0.0 0.6 0.1 FINAL Deepthi banerjee [facility] - [place], [address] [place] [address] [address] [place] [id number] 0 Phone: () - 05/06 CBC w/ auto diff BA # K/uL 0.0 0.2 0.0 FINAL Deepthi banerjee [facility] - [place], [address] [place] [address] [address] [place] [id number] 0 Phone: () - 05/06 CBC w/ auto diff NRBC % #/100W BC 0.0 0.2 0.0 FINAL Deepthi banerjee [facility] - [place] [facility], [address] [place] [address] [address] [place] [id number] 0 Phone: () - 05/06 CBC w/ auto diff RBC M/uL 3.9 5.1 4.57 FINAL Deepthi banerjee [facility] - [place] [facility], [address] [place] [address] [address] [place] [id number] 0 Phone: () - 05/06 CBC w/ auto diff HCT % 35.0 48.0 40.7 FINAL Deepthi banerjee [facility] - [place] [facility], [address] [place] [address] [address] [place] [id number] 0 Phone: () - 05/06 CBC w/ auto diff MCV fL 80.0 104.0 89.1 FINAL Deepthi banerjee [facility] - [place] [facility], [address] [place] [address] [address] [place] [id number] Phone: () - 05/06 CBC w/ auto diff MCH pg 26.0 35.0 29.8 FINAL Deepthi banerjee [facility] - [place] [facility], [address] [place] [id number] Phone: () - 05/06 CBC w/ auto diff MCHC g/dL 30.0 35.0 33.4 FINAL Deepthi banerjee [facility] - [place] [facility], [address] [place] [address] [address] [place] [id number] Phone: () - 05/06 CBC w/ auto diff MPV fL 9.5 13.4 9.3 Low FINAL Deepthi banerjee [facility] - [place] [facility], [address] [place] [address] [address] [place] [id number] 0 Phone: () - 05/06 CBC w/ auto diff RDW % 11.4 16.1 13.60 FINAL Deepthi banerjee [facility] - [place] [facility], [address] 200 [facility] [phone] 0 Phone: () - Medications Date Name [...]
--- OUTSIDE RECORDS SUMMARY | 2025-03-02 09:19 | XMS_ITS ---
Author Name Interface, [id number] lity Address [address] [place] [address] [address] [place] [address] Organization [facility] Address [address] [place] [address] [address] [address] Care Team Providers Care Special Education Professional Name Role Phone Aliza Gan Unavailable Unavailable [...] U/L 120.0 246.0 246 FINAL Asim Cornelius [facility] - [place], [address] [facility] [phone] Phone: () - 06/19 Path perip heral blood slide revie w panel Patho logy/ Cytol ogy Morph ology SEE RESULTS BELOW CASE REPORTSpe cial Hematolog y Report Case: [id number] ing Provider: Asim Cornelius MD Collected :06/19/20 21 1340Order ing Location: [facility] Received: 1 1734Patho logist: [...] 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 Staging bone marrow biopsy was negative forlympho ma ([id number]) . Her most recent periphera l blood morpholog y 2019 ([id number] ,05/01/2020 ) was negative for circulati ng [...] blood smear.ADD ITIONAL INFORMATI ONInterpr eted at [facility], [facility] - [address], [place], [place] [address]Clqh Performed by:[facility] [address] - [place], [place] [address]Ctrc e [phone] FINAL Asim Cornelius 06/19 CBC w/ auto diff WBC K/uL 3.0 8.9 8.7 FINAL Asim Clemensot a Oncology - [facility] lis, [address] [place] [phone] 0 Phone: () - 06/19 CBC w/ auto diff HGB g/dL 11.3 15.2 14.2 FINAL Asim Clemensot a Oncology - [facility], [address] [place] [id number] 0 Phone: () - 06/19 CBC w/ auto diff PLT K/uL 113.0 364.0 282 FINAL Asim Clemensot a Oncology - [facility], [address] [place] [id number] 0 Phone: () - 06/19 CBC w/ auto diff Dawna # (ANC) K/uL 1.6 6.6 4.9 FINAL Asim Eli a [facility] - [place], [address] [place] [address] [address] [place] [id number] 0 Phone: () - 06/19 CBC w/ auto diff Dawna % % 43.0 74.0 56.8 FINAL Asim Eli a [facility] - [place], [address] [place] [address] [address] [place] [id number] 0 Phone: () - 06/19 CBC w/ auto diff IG % % 0.0 0.5 0.5 FINAL Asim Eli a [facility] - [place], [address] [place] [address] [address] [place] [id number] 0 Phone: () - 06/19 CBC w/ auto diff IG # K/uL 0.0 0.03 0.04 High FINAL Asim Eli a [facility] - [place], [address] [place] [address] [address] [place] [id number] 0 Phone: () - 06/19 CBC w/ auto diff LY % % 14.0 41.0 33.4 FINAL Asim Eli a [facility] - [place], [address] [place] [address] [address] [place] [id number] 0 Phone: () - 06/19 CBC w/ auto diff MO % % 6.0 15.0 7.0 FINAL Asim Eli a [facility] - [place], [address] [place] [address] [address] [place] [id number] 0 Phone: () - 06/19 CBC w/ auto diff EO % % 0.0 7.0 1.8 FINAL Asim Eli a [facility] - [place], [address] [place] [address] [address] [place] [id number] 0 Phone: () - 06/19 CBC w/ auto diff BA % % 0.0 2.0 0.5 FINAL Asim Eli a [facility] - [place], [address] [place] [address] [address] [place] [id number] 0 Phone: () - 06/19 CBC w/ auto diff LY # K/uL 0.4 3.6 2.9 FINAL Asim Eli a [facility] - [place], [address] [place] [id number] 0 Phone: () - 06/19 CBC w/ auto diff MO # K/uL 0.2 1.3 0.6 FINAL Asim banerjee Oncology - [place], [address] [place] [id number] 0 Phone: () - 06/19 CBC w/ auto diff EO # K/uL 0.0 0.6 0.2 FINAL Asim banerjee Oncology - [place], [address] [place] [id number] 0 Phone: () - 06/19 CBC w/ auto diff BA # K/uL 0.0 0.2 0.0 FINAL Asim banerjee Oncology - [place], [address] [place] [id number] 0 Phone: () - 06/19 CBC w/ auto diff NRBC % #/100W BC 0.0 0.2 0.0 FINAL Asim banerjee Oncology - [place], [address] [place] [id number] 0 Phone: () - 06/19 CBC w/ auto diff RBC M/uL 3.9 5.1 4.67 FINAL Asim banerjee Oncology - [place], [address] [place] [id number] 0 Phone: () - 06/19 CBC w/ auto diff HCT % 35.0 48.0 41.7 FINAL Asim banerjee Oncology - [place], [address] [place] [id number] 0 Phone: () - 06/19 CBC w/ auto diff MCV fL 80.0 104.0 89.3 FINAL Asim banerjee Oncology - [place], [address] [place] [address] [address] [place] [id number] 0 Phone: () - 06/19 CBC w/ auto diff MCH pg 26.0 35.0 30.4 FINAL Asim banerjee Oncology - [place], [address] [place] [id number] 0 Phone: () - 06/19 CBC w/ auto diff MCHC g/dL 30.0 35.0 34.1 FINAL Asim banerjee Oncology - [place] [facility], [address] 200 [place] [id number] 0 Phone: () - 06/19 CBC w/ auto diff MPV fL 9.5 13.4 8.8 Low FINAL Asim banerjee Oncology - [place] [facility], [address] [place] [id number] 0 Phone: () - 06/19 CBC w/ auto diff RDW % 11.4 16.1 13.10 FINAL Asim banerjee Oncology - [place] [facility], [address] [place] [address] 200 [place] [id number] 0 Phone: () - 06/19 Retic ulocy te count panel Retic ulocy te, absol [place] M/uL 0.02 0.08 0.08 FINAL Asim banerjee Oncology - [place] [facility], [address] [place] [id number] 0 Phone: () - 06/19 Retic ulocy te count panel Retic ulocy te count % 0.4 1.6 1.75 High FINAL Asim banerjee Oncology - [place] [facility], [address] [place] [address] 200 [place] [id number] 0 Phone: () - 06/19 Retic ulocy te count panel Immat ure retic ulocy te fract ion, % % 0.0 16.5 10.80 FINAL Asim banerjee Oncology - [place] [facility], [address] 200 [place] [id number] 0 Phone: () - 06/19 Retic ulocy te count panel Retic ulocy te cellu lar hemog lobin pg 28.0 37.0 34.6 FINAL Asim banerjee Oncology - [place] [facility], [address] [place] [address] 200 [place] [id number] 0 Phone: () - 06/19 CMP Album in g/dL 3.2 5.2 4.6 FINAL Asim banerjee Oncology [facility], [address] [facility] [id number] 0 Phone: () - 06/19 CMP Alkal ine phosp hatas e U/L 46.0 116.0 91 FINAL Asimmatt Cornelius [facility], [address] [facility] [address] [facility] [id number] 0 Phone: () - 06/19 CMP ALT/S GPT U/L 7.0 40.0 27 FINAL Asim Cornelius [facility], [address] [facility] [id number] 0 Phone: () - 06/19 CMP AST/S GOT U/L 13.0 40.0 34 FINAL [facility], [address] [facility] [id number] 0 Phone: () - 06/19 CMP BUN mg/dL 9.0 23.0 11 FINAL [facility], [address] [facility] [address] [place] [id number] 0 Phone: () - 06/19 CMP Calci um mg/dL 8.7 10.4 9.4 FINAL [facility], [address] [facility] [address] [facility] [id number] 0 Phone: () - 06/19 CMP Chlor ray mmol/L 96.0 114.0 107 FINAL [facility], [address] [facility] [address] [place] [address] [id number] 0 Phone: () - 06/19 CMP CO2 [...] the 96 hour stability window. FINAL [facility], [address] [facility] [phone] 0 Phone: () - 06/19 CMP Creat inine mg/dL 0.5 1.2 0.68 FINAL [facility] [address] [facility] [address] [facility] [id number] 0 Phone: () - 06/19 CMP GFR estim ate ml/min /1.73m ^2 103.9 GFR is calculate d using the CKD-EPI equation. FINAL Asim Cornelius [facility], [address] [facility] [address] [facility] [id number] 0 Phone: () - 06/19 CMP Gluco se mg/dL 73.0 126.0 95 FINAL Asimmatt Cornelius [facility], [address] [facility] [address] [facility] [id number] 0 Phone: () - 06/19 CMP Potas sium mmol/L 3.5 5.1 4.1 [facility], [address] [facility] [address] [facility] [id number] 0 Phone: () - 06/19 CMP Sodiu m mmol/L 136.0 145.0 140 FINAL Asim Lemuel [facility], [address] [facility] [address] [facility] [id number] 0 Phone: () - 06/19 CMP Bilir ubin, total mg/dL 0.3 1.2 0.2 Low [facility], [address] [facility] [address] [facility] [id number] [phone] Phone: () - 06/19 CMP Total prote in g/dL 5.7 8.2 6.9 [facility] Corn[facility] [address] [facility] 100 [facility] [id number] 0 Phone: () - 01/19 [facility] lab See paper latcher d 05/01 Mis other lab See paper latcher d 05/06 CBC w/ auto diff WBC K/uL 3.0 8.9 8.4 FINAL Deepthi Clemens [facility], [address] [facility] [id number] [phone] Phone: () - 05/06 CBC w/ auto diff HGB g/dL 11.3 15.2 13.6 FINAL Deepthi Clemens [facility] - [place], [address] [place] [id number] 0 Phone: () - 05/06 CBC w/ auto diff PLT K/uL 113.0 364.0 266 FINAL Deepthi banerjee Oncology - [place], [address] [place] [id number] 0 Phone: () - 05/06 CBC w/ auto diff Dawna # (ANC) K/uL 1.6 6.6 3.9 FINAL Deepthi banerjee Oncology - [place], [address] [place] [id number] 0 Phone: () - 05/06 CBC w/ auto diff Dawna % % 43.0 74.0 46.7 FINAL Deepthi banerjee On[facility] - [place], [address] 200 [place] [id number] 0 Phone: () - 05/06 CBC w/ auto diff IG % % 0.0 0.5 0.5 FINAL Deepthi banerjee On[facility] - [place], [address] 200 [place] [id number] 0 Phone: () - 05/06 CBC w/ auto diff IG # K/uL 0.0 0.03 0.04 High FINAL Deepthi banerjee On[facility] - [place], [address] [place] [id number] 0 Phone: () - 05/06 CBC w/ auto diff LY % % 14.0 41.0 44.8 High FINAL Deepthi banerjee Oncology - [place], [address] [place] [id number] 0 Phone: () - 05/06 CBC w/ auto diff MO % % 6.0 15.0 6.2 FINAL Deepthi banerjee Oncology - [place], [address] [place] [id number] 0 Phone: () - 05/06 CBC w/ auto diff EO % % 0.0 7.0 1.4 FINAL Deepthi banerjee Oncology - [place], [address] 200 [place] [id number] 0 Phone: () - 05/06 CBC w/ auto diff BA % % 0.0 2.0 0.4 FINAL Deepthi banerjee Oncology - [place], [address] [place] [address] 200 [place] [id number] 0 Phone: () - 05/06 CBC w/ auto diff LY # K/uL 0.4 3.6 3.8 High FINAL Deepthi banerjee Oncology - [place], [address] [place] [address] 200 [place] [id number] 0 Phone: () - 05/06 CBC w/ auto diff MO # K/uL 0.2 1.3 0.5 FINAL Deepthi banerjee Oncology - [place] [facility], [address] [place] [address] 200 [place] [id number] 0 Phone: () - 05/06 CBC w/ auto diff EO # K/uL 0.0 0.6 0.1 FINAL Deepthi banerjee Oncology - [place] [facility], [address] [place] [address] 200 [place] [id number] 0 Phone: () - 05/06 CBC w/ auto diff BA # K/uL 0.0 0.2 0.0 FINAL Deepthi banerjee Oncology - [place] [facility], [address] [place] [address] 200 [place] [id number] 0 Phone: () - 05/06 CBC w/ auto diff NRBC % #/100W BC 0.0 0.2 0.0 FINAL Deepthi banerjee Oncology - [place] [facility], [address] [place] [address] 200 [place] [id number] 0 Phone: () - 05/06 CBC w/ auto diff RBC M/uL 3.9 5.1 4.57 FINAL Deepthi banerjee Oncology - [place] [facility], [address] [place] [address] 200 [place] [id number] 0 Phone: () - 05/06 CBC w/ auto diff HCT % 35.0 48.0 40.7 FINAL Deepthi banerjee On[facility] - [place], [address] [place] [address] 200 [place] [id number] 0 Phone: () - 05/06 CBC w/ auto diff MCV fL 80.0 104.0 89.1 FINAL Deepthi banerjee Oncology - [place] [facility], [address] [place] [address] 200 [place] [id number] 0 Phone: () - 05/06 CBC w/ auto diff MCH pg 26.0 35.0 29.8 FINAL Deepthi banerjee Oncology - [place] [facility], [address] [place] [address] 200 [place] [id number] 0 Phone: () - 05/06 CBC w/ auto diff MCHC g/dL 30.0 35.0 33.4 FINAL Deepthi banerjee Oncology - [place] [facility], [address] [place] [address] 200 [place] [id number] 0 Phone: () - 05/06 CBC w/ auto diff MPV fL 9.5 13.4 9.3 Low FINAL Deepthi Clemens lavonne [facility] - [place] [facility], [address] [place] [address] 200 [place] [id number] 0 Phone: () - 05/06 CBC w/ auto diff RDW % 11.4 16.1 13.60 FINAL Deepthi Clemens lavonne [facility] - [place] [facility], [address] [place] [address] 200 [place] [id number] 0 Phone: () - 05/06 Retic ulocy te count panel Retic ulocy te, absol [place] M/uL 0.02 0.08 0.07 FINAL Deepthi Clemens lavonne On[facility] - [place] [facility], [address] [place] [address] 200 [place] [id number] 0 Phone: () - 05/06 Retic ulocy te count panel Retic ulocy te count % 0.4 1.6 1.60 FINAL Deepthi Clemens lavonne On[facility] - [place] [facility], [address] [place] [address] 200 [place] [id number] 0 Phone: () - 05/06 Retic ulocy te count panel Immat ure retic ulocy te fract ion, % % 0.0 16.5 9.70 FINAL Deepthi Clemens lavonne [facility] - [place] [facility], [address] [place] [address] 200 [place] [id number] 0 Phone: () - 05/06 Retic ulocy te count panel Retic ulocy te cellu lar hemog lobin pg 28.0 37.0 33.0 FINAL Deepthi banerjee [facility] lis, [address] [place] [address] 200 [facility] [id number] 0 Phone: () - 05/06 CMP Album in g/dL 3.2 5.2 4.7 FINAL [place] [address] [id number] 0 Phone: () - 05/06 CMP Alkal ine phosp hatas e U/L 46.0 116.0 73 FINAL [place] [address] [id number] 0 Phone: () - 05/06 CMP ALT/S GPT U/L 7.0 40.0 19 FINAL [place] [address] [id number] 0 Phone: () - 05/06 CMP AST/S GOT U/L 13.0 40.0 21 FINAL [place] [address] [id number] 0 Phone: () - 05/06 CMP BUN mg/dL 9.0 23.0 16.0 FINAL [place] [address] [id number] 0 Phone: () - 05/06 CMP Calci um mg/dL 8.7 10.4 9.8 FINAL Deepthi Dodge [place] [address] [phone] 0 Phone: () - 05/06 CMP Chlor ray mmol/L 96.0 114.0 107 FINAL [place] [address] [id number] 0 Phone: () - 05/06 CMP CO2 [...] 96 hour stability window. FINAL Deepthi banerjee [place] [address] [phone] 0 Phone: () - 05/06 CMP Creat inine mg/dL 0.5 1.2 0.80 FINAL Deepthi banerjee [place] [address] [id number] 0 Phone: () - 05/06 CMP GFR estim ate ml/min /1.73m ^2 90.1 GFR is calculate d using the CKD-EPI equation. FINAL Deepthi Clemens lavonne [place] [address] [id number] 0 Phone: () - 05/06 CMP Gluco se mg/dL 73.0 126.0 128 High FINAL Deepthi Clemens lavonne [place] [address] [id number] 0 Phone: () - 05/06 CMP Potas sium mmol/L 3.5 5.1 3.9 FINAL Deepthi Clemens lav[place] [address] [id number] 0 Phone: () - 05/06 CMP Sodiu m mmol/L 136.0 145.0 142 FINAL [place] [address] [id number] 0 Phone: () - 05/06 CMP Bilir ubin, total mg/dL 0.3 1.2 0.2 Low FINAL [place] [address] [phone] 0 Phone: () - 05/06 CMP Total prote in g/dL 5.7 8.2 7.1 FINAL [place] [address] [address] [facility] 100 [facility] [phone] 0 Phone: () - 05/06 LDH panel LDH U/L 120.0 246.0 191 FINAL Deepthi Eli a [facility] - [place], [address] [facility] [address] [facility] [id number] 0 Phone: () - Medications Date Name [...]
--- OUTSIDE RECORDS SUMMARY | 2025-03-02 09:19 | XMS_ITS ---
Author Name Interface, [id number] lity Address [address] [place] [address] [address] [address] [facility] Address [address] [facility] [address] [place] [address] Care Team Providers Care Business And Marketing Teacher Name Role Phone Deepthi Dodge Unavailable Unavailable [...] 246.0 191 FINAL Deepthi banerjee [facility] - [place], [address] [facility] [id number] Phone: () - 05/06 CBC w/ auto diff WBC K/uL 3.0 8.9 8.4 FINAL Deepthi banerjee On[facility] - [facility] lis, [address] [place] [address] [address] [facility] [id number] Phone: () - 05/06 CBC w/ auto diff HGB g/dL 11.3 15.2 13.6 FINAL Deepthi banerjee [facility] - [place] [facility], [address] [place] [address] [address] [place] [id number] Phone: () - 05/06 CBC w/ auto diff PLT K/uL 113.0 364.0 266 FINAL Deepthi banerjee [facility] - [place], [address] [place] [address] [address] [place] [id number] Phone: () - 05/06 CBC w/ auto diff Dawna # (ANC) K/uL 1.6 6.6 3.9 FINAL Deepthi banerjee [facility] - [place], [address] [place] [address] [address] [place] [id number] Phone: () - 05/06 CBC w/ auto diff Dawna % % 43.0 74.0 46.7 FINAL Deepthi banerjee [facility] - [place], [address] [place] [address] [address] [place] [id number] 0 Phone: () - 05/06 CBC w/ auto diff IG % % 0.0 0.5 0.5 FINAL Deepthi banerjee [facility] - [place], [address] [place] [address] [address] [place] [id number] 0 Phone: () - 05/06 CBC w/ auto diff IG # K/uL 0.0 0.03 0.04 High FINAL Deepthi banerjee [facility] - [place], [address] [place] [address] [address] [place] [id number] Phone: () - 05/06 CBC w/ auto diff LY % % 14.0 41.0 44.8 High FINAL Deepthi banerjee [facility] - [place], [address] [place] [address] [address] [place] [id number] Phone: () - 05/06 CBC w/ auto diff MO % % 6.0 15.0 6.2 FINAL Deepthi banerjee [facility] - [place], [address] [place] [address] [address] [place] [id number] 0 Phone: () - 05/06 CBC w/ auto diff EO % % 0.0 7.0 1.4 FINAL Deepthi banerjee [facility] - [place], [address] [place] [id number] 0 Phone: () - 05/06 CBC w/ auto diff BA % % 0.0 2.0 0.4 FINAL Deepthi banerjee [facility] - [place] [facility], [address] [place] [address] [address] [place] [id number] 0 Phone: () - 05/06 CBC w/ auto diff LY # K/uL 0.4 3.6 3.8 High FINAL Deepthi banerjee [facility] - [place] [facility], [address] [place] [address] [address] [place] [id number] 0 Phone: () - 05/06 CBC w/ auto diff MO # K/uL 0.2 1.3 0.5 FINAL Deepthi banerjee [facility] - [place] [facility], [address] [place] [address] [address] [place] [id number] 0 Phone: () - 05/06 CBC w/ auto diff EO # K/uL 0.0 0.6 0.1 FINAL Deepthi banerjee [facility] - [place] [facility], [address] [place] [address] [address] [place] [id number] 0 Phone: () - 05/06 CBC w/ auto diff BA # K/uL 0.0 0.2 0.0 FINAL Deepthi banerjee [facility] - [place] [facility], [address] [place] [address] [address] [place] [id number] 0 Phone: () - 05/06 CBC w/ auto diff NRBC % #/100W BC 0.0 0.2 0.0 FINAL Deepthi banerjee [facility] - [place] [facility], [address] [place] [address] [address] [place] [id number] 0 Phone: () - 05/06 CBC w/ auto diff RBC M/uL 3.9 5.1 4.57 FINAL Deepthi banerjee [facility] - [place] [facility], [address] [place] [address] [address] [place] [id number] 0 Phone: () - 05/06 CBC w/ auto diff HCT % 35.0 48.0 40.7 FINAL Deepthi banerjee [facility] - [place] [facility], [address] [place] [address] [address] [facility] [place] [id number] 0 Phone: () - 05/06 CBC w/ auto diff MCV fL 80.0 104.0 89.1 FINAL Deepthi banerjee [facility] - [place], [address] [place] [address] [address] [place] [id number] 0 Phone: () - 05/06 CBC w/ auto diff MCH pg 26.0 35.0 29.8 FINAL Deepthi banerjee [facility] - [place] [facility], [address] [place] [address] [address] [facility] [place] [id number] 0 Phone: () - 05/06 CBC w/ auto diff MCHC g/dL 30.0 35.0 33.4 FINAL Deepthi banerjee [facility] - [place] [facility], [address] [place] [address] [address] [facility] [place] [id number] 0 Phone: () - 05/06 CBC w/ auto diff MPV fL 9.5 13.4 9.3 Low FINAL Deepthi banerjee [facility] - [place] [facility], [address] [place] [address] [address] [facility] [place] [id number] 0 Phone: () - 05/06 CBC w/ auto diff RDW % 11.4 16.1 13.60 FINAL Deepthi banerjee [facility] - [place] [facility], [address] [place] [address] [address] [facility] [place] [id number] 0 Phone: () - 05/06 Retic ulocy te count panel Retic ulocy te, absol bc M/uL 0.02 0.08 0.07 FINAL Deepthi banerjee [facility] - [place] [facility], [address] [place] [address] [address] [place] [id number] 0 Phone: () - 05/06 Retic ulocy te count panel Retic ulocy te count % 0.4 1.6 1.60 FINAL Deepthi banerjee [facility] - [place] [facility], [address] [place] [address] [address] [place] [id number] 0 Phone: () - 05/06 Retic ulocy te count panel Immat ure retic ulocy te fract ion, % % 0.0 16.[address] [facility], [address] [place] [id number] 0 Phone: () - 05/06 Retic ulocy te count panel Retic ulocy te cellu lar hemog lobin pg 28.0 37.0 33.0 FINAL [address] Clemens [address] [facility], [address] [place] [id number] 0 Phone: () - 05/06 CMP Album in g/dL 3.2 5.2 4.7 FINAL [place] [address] [place] [address] [id number] 0 Phone: () - 05/06 CMP Alkal ine phosp hatas e U/L 46.0 116.0 73 FINAL Deepthi Dodge [place] [address] [id number] [phone] Phone: () - 05/06 CMP ALT/S GPT U/L 7.0 40.0 19 FINAL Deepthi [place] [address] [id number] 0 Phone: () - 05/06 CMP AST/S GOT U/L 13.0 40.0 21 FINAL Deepthi [place] [address] [id number] 0 Phone: () - 05/06 CMP BUN mg/dL 9.0 23.0 16.0 FINAL Deepthi [place] [address] [id number] 0 Phone: () - 05/06 CMP Calci um mg/dL 8.7 10.4 9.8 FINAL Deepthi [place] [address] [id number] [phone] Phone: () - 05/06 CMP Chlor ray mmol/L 96.0 114.0 107 FINAL Deepthi Dodge [place] [address] [id number] 0 Phone: () - 05/06 CMP CO2 [...] 96 hour stability window. FINAL Deepthi banerjee [place] [address] [id number] 0 Phone: () - 05/06 CMP Creat inine mg/dL 0.5 1.2 0.80 FINAL Deepthi [place] [address] [id number] 0 Phone: () - 05/06 CMP GFR estim ate ml/min /1.73m ^2 90.1 GFR is calculate d using the CKD-EPI equation. FINAL Deepthi [place] [address] [phone] 0 Phone: () - 05/06 CMP Gluco se mg/dL 73.0 126.0 128 High FINAL Deepthi [place] [address] [id number] 0 Phone: () - 05/06 CMP Potas sium mmol/L 3.5 5.1 3.9 FINAL Deepthi [place] [address] [phone] 0 Phone: () - 05/06 CMP Sodiu m mmol/L 136.0 145.0 142 FINAL Deepthi Eli [place] [address] [id number] 0 Phone: () - 05/06 CMP Bilir ubin, total mg/dL 0.3 1.2 0.2 Low FINAL Deepthi [place] [address] [id number] [phone] Phone: () - 05/06 CMP Total prote in g/dL 5.7 8.2 7.1 FINAL Deepthi banerjee [facility] - [place], [address] [facility] [id number] [phone] Phone: () - Medications Date Name [...] old woman who was admitted 04/03/2019 from [place] to [facility] with dyspnea and a left neck mass. [...] mg po q 12 hours, D1,2, Aspariginase 91432 u IM day 3 + Neulasta. * [...] for Consolidation?? Block 9:??She received??with CTX, MTX, COLD PATCHER-16 + growth factor support with neulasta * [...]
[2025-03-02 09:20] VITALS: BP 173/118; PULSE 83; RESP 18; TEMP 36.7; O2SAT 98; BMI 31.1
--- OUTSIDE RECORDS SUMMARY | 2025-03-02 09:20 | XMS_ITS ---
Author Name Interface, [id number] lity Address [address] [place] [address] [address] [place] [address] Organization [facility] Address [address] [place] [address] [address], [place] [address] Care Team Providers Care Crew Manager Name Role Phone Aliza Gan Unavailable Unavailable [...] U/L 120.0 246.0 246 FINAL Asim Cornelius [facility] [place], [address] [facility] [phone] Phone: () - 06/19 Path perip heral blood slide revie w panel Patho logy/ Cytol ogy Morph ology SEE RESULTS BELOW CASE REPORTSpe cial Hematolog y Report Case: [id number] ing Provider: Asim Cornelius MD Collected :06/19/20 21 1340Order ing Location: [facility] Received: 1 1734Patho logist: [...] 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 Staging bone marrow biopsy was negative forlympho ma ([id number]) . Her most recent periphera l blood morpholog y 2019 ([id number] ,05/01/2020 ) was negative for circulati ng [...] blood smear.ADD ITIONAL INFORMATI ONInterpr eted at [facility] - [address], [place], [place] [address]Qjaf Performed by:[facility] - [place], [place] [address]Jzyt e : FINAL Asim Cornelius 06/19 CBC w/ auto diff WBC K/uL 3.0 8.9 8.7 FINAL Asim Clemensot a Oncology - [facility] lis, [address] [place] [id number] 0 Phone: () - 06/19 CBC w/ auto diff HGB g/dL 11.3 15.2 14.2 FINAL Asim Clemensot a Oncology - [facility], [address] [place] [id number] 0 Phone: () - 06/19 CBC w/ auto diff PLT K/uL 113.0 364.0 282 FINAL Asim Clemensot a Oncology - [facility], [address] [place] [id number] 0 Phone: () - 06/19 CBC w/ auto diff Dawna # (ANC) K/uL 1.6 6.6 4.9 FINAL Asim Eli [facility] - [place], [address] [place] [address] [address] [place] [id number] 0 Phone: () - 06/19 CBC w/ auto diff Dawna % % 43.0 74.0 56.8 FINAL Asim Eli a [facility] - [place], [address] [place] [address] [address] [place] [id number] 0 Phone: () - 06/19 CBC w/ auto diff IG % % 0.0 0.5 0.5 FINAL Asim Eli a [facility] - [place], [address] [place] [address] [address] [place] [id number] 0 Phone: () - 06/19 CBC w/ auto diff IG # K/uL 0.0 0.03 0.04 High FINAL Asim Eli a [facility] - [place] [facility], [address] [place] [address] [address] [place] [id number] 0 Phone: () - 06/19 CBC w/ auto diff LY % % 14.0 41.0 33.4 FINAL Asim Eli a [facility] - [place], [address] [place] [address] [address] [place] [id number] 0 Phone: () - 06/19 CBC w/ auto diff MO % % 6.0 15.0 7.0 FINAL Asim Eli a [facility] - [place], [address] [place] [address] [address] [place] [id number] 0 Phone: () - 06/19 CBC w/ auto diff EO % % 0.0 7.0 1.8 FINAL Asim Eli a [facility] - [place], [address] [place] [address] [address] [place] [id number] 0 Phone: () - 06/19 CBC w/ auto diff BA % % 0.0 2.0 0.5 FINAL Asim Eli a [facility] - [place], [address] [place] [address] [address] [place] [id number] 0 Phone: () - 06/19 CBC w/ auto diff LY # K/uL 0.4 3.6 2.9 FINAL Asim Eli a [facility] - [place], [address] [place] [id number] 0 Phone: () - 06/19 CBC w/ auto diff MO # K/uL 0.2 1.3 0.6 FINAL Asim banerjee [facility]cology - [place], [address] [place] [id number] 0 Phone: () - 06/19 CBC w/ auto diff EO # K/uL 0.0 0.6 0.2 FINAL Asim banerjee [facility] - [place], [address] [place] [id number] 0 Phone: () - 06/19 CBC w/ auto diff BA # K/uL 0.0 0.2 0.0 FINAL Asim banerjee [facility] - [place], [address] [place] [id number] 0 Phone: () - 06/19 CBC w/ auto diff NRBC % #/100W BC 0.0 0.2 0.0 FINAL Asim banerjee [facility] - [place], [address] [place] [id number] 0 Phone: () - 06/19 CBC w/ auto diff RBC M/uL 3.9 5.1 4.67 FINAL Asim banerjee [facility] - [place], [address] [place] [id number] 0 Phone: () - 06/19 CBC w/ auto diff HCT % 35.0 48.0 41.7 FINAL Asim banerjee [facility] - [place], [address] [place] [id number] 0 Phone: () - 06/19 CBC w/ auto diff MCV fL 80.0 104.0 89.3 FINAL Asim banerjee [facility] - [place], [address] [place] [address] [address] [place] [id number] 0 Phone: () - 06/19 CBC w/ auto diff MCH pg 26.0 35.0 30.4 FINAL Asim banerjee [facility] - [place], [address] [place] [id number] 0 Phone: () - 06/19 CBC w/ auto diff MCHC g/dL 30.0 35.0 34.1 FINAL Asim banerjee [facility]cology - [place] [facility], [address] [place] [id number] 0 Phone: () - 06/19 CBC w/ auto diff MPV fL 9.5 13.4 8.8 Low FINAL Asim banerjee [facility]cology - [place] [facility], [address] [place] [id number] 0 Phone: () - 06/19 CBC w/ auto diff RDW % 11.4 16.1 13.10 FINAL Asim banerjee [facility]cology - [place] [facility], [address] [place] [address] 200 [place] [id number] 0 Phone: () - 06/19 Retic ulocy te count panel Retic ulocy te, absol [place] M/uL 0.02 0.08 0.08 FINAL Asim banerjee [facility] - [place] [facility], [address] [place] [id number] 0 Phone: () - 06/19 Retic ulocy te count panel Retic ulocy te count % 0.4 1.6 1.75 High FINAL Asim banerjee [facility] - [place] [facility], [address] [place] [address] 200 [place] [id number] 0 Phone: () - 06/19 Retic ulocy te count panel Immat ure retic ulocy te fract ion, % % 0.0 16.5 10.80 FINAL Asim banerjee [facility] - [place] [facility], [address] [place] [id number] 0 Phone: () - 06/19 Retic ulocy te count panel Retic ulocy te cellu lar hemog lobin pg 28.0 37.0 34.6 FINAL Asim banerjee [facility] - [place] [facility], [address] [place] [address] 200 [place] [id number] 0 Phone: () - 06/19 CMP Album in g/dL 3.2 5.2 4.6 FINAL Asim banerjee Oncology [facility], [address] [facility] [id number] 0 Phone: () - 06/19 CMP Alkal ine phosp hatas e U/L 46.0 116.[address] [facility], [address] [facility] [id number] 0 Phone: () - 06/19 CMP ALT/S GPT U/L 7.0 40.[address] [facility], [address] [facility] [id number] 0 Phone: () - 06/19 CMP AST/S GOT U/L 13.0 40.0 34 FINAL [facility], [address] [facility] [id number] 0 Phone: () - 06/19 CMP BUN mg/dL 9.0 23.0 11 FINAL [facility], [address] [place] [phone] Phone: () - 06/19 CMP Calci um mg/dL 8.7 10.4 9.4 FINAL [facility], [address] [facility] [id number] 0 Phone: () - 06/19 CMP Chlor ray mmol/L 96.0 114.0 107 FINAL [facility], [address] [place] [phone] Phone: () - 06/19 CMP CO2 [...] the 96 hour stability window. FINAL [facility], [address] [facility] [id number] 0 Phone: () - 06/19 CMP Creat inine mg/dL 0.5 1.2 0.68 FINAL [facility] [address] [facility] [id number] 0 Phone: () - 06/19 CMP GFR estim ate ml/min /1.73m ^2 103.9 GFR is calculate d using the CKD-EPI equation. FINAL Asim Cornelius [facility], [address] [facility] [id number] 0 Phone: () - 06/19 CMP Gluco se mg/dL 73.0 126.[address] [facility], [address] [facility] [id number] 0 Phone: () - 06/19 CMP Potas sium mmol/L 3.5 5.1 4.1 [facility], [address] [facility] [id number] 0 Phone: () - 06/19 CMP Sodiu m mmol/L 136.0 145.0 140 FINAL Asim [facility], [address] [facility] [id number] 0 Phone: () - 06/19 CMP Bilir ubin, total mg/dL 0.3 1.2 0.2 Low [facility], [address] [facility] [id number] 0 Phone: () - 06/19 CMP Total prote in g/dL 5.7 8.2 6.9 [facility] [address] [facility] 100 [facility] [phone] 0 Phone: () - 01/19 [facility] other lab See photographic equipment inspector d 05/01 Mis other lab See photographic equipment inspector d 05/06 CBC w/ auto diff WBC K/uL 3.0 8.9 8.4 FINAL Deepthi Clemens [facility], [address] [facility] [id number] 0 Phone: () - 05/06 CBC w/ auto diff HGB g/dL 11.3 15.2 13.6 FINAL Deepthi Clemens [facility] - [place], [address] [place] [id number] 0 Phone: () - 05/06 CBC w/ auto diff PLT K/uL 113.0 364.0 266 FINAL Deepthi banerjee [facility]cology - [place], [address] [place] [id number] 0 Phone: () - 05/06 CBC w/ auto diff Dawna # (ANC) K/uL 1.6 6.6 3.9 FINAL Deepthi banerjee [facility] - [place], [address] [place] [id number] 0 Phone: () - 05/06 CBC w/ auto diff Dawna % % 43.0 74.0 46.7 FINAL Deepthi banerjee [facility] - [place], [address] [place] [id number] 0 Phone: () - 05/06 CBC w/ auto diff IG % % 0.0 0.5 0.5 FINAL Deepthi banerjee [facility] - [place], [address] 200 [place] [id number] 0 Phone: () - 05/06 CBC w/ auto diff IG # K/uL 0.0 0.03 0.04 High FINAL Deepthi banerjee [facility] - [place], [address] [place] [id number] 0 Phone: () - 05/06 CBC w/ auto diff LY % % 14.0 41.0 44.8 High FINAL Deepthi banerjee [facility] - [place], [address] [place] [id number] 0 Phone: () - 05/06 CBC w/ auto diff MO % % 6.0 15.0 6.2 FINAL Deepthi banerjee [facility] - [place], [address] [place] [id number] 0 Phone: () - 05/06 CBC w/ auto diff EO % % 0.0 7.0 1.4 FINAL Deepthi banerjee [facility] - [place], [address] [place] [id number] 0 Phone: () - 05/06 CBC w/ auto diff BA % % 0.0 2.0 0.4 FINAL Deepthi banerjee [facility] - [place], [address] [place] [address] 200 [place] [id number] 0 Phone: () - 05/06 CBC w/ auto diff LY # K/uL 0.4 3.6 3.8 High FINAL Deepthi banerjee [facility] - [place], [address] [place] [address] 200 [place] [id number] 0 Phone: () - 05/06 CBC w/ auto diff MO # K/uL 0.2 1.3 0.5 FINAL Deepthi banerjee [facility] - [place] [facility], [address] [place] [address] 200 [place] [id number] 0 Phone: () - 05/06 CBC w/ auto diff EO # K/uL 0.0 0.6 0.1 FINAL Deepthi banerjee [facility] - [place] [facility], [address] [place] [address] 200 [place] [id number] 0 Phone: () - 05/06 CBC w/ auto diff BA # K/uL 0.0 0.2 0.0 FINAL Deepthi banerjee [facility] - [place] [facility], [address] [place] [address] 200 [place] [id number] 0 Phone: () - 05/06 CBC w/ auto diff NRBC % #/100W BC 0.0 0.2 0.0 FINAL Deepthi banerjee [facility] - [place] [facility], [address] [place] [address] 200 [place] [id number] 0 Phone: () - 05/06 CBC w/ auto diff RBC M/uL 3.9 5.1 4.57 FINAL Deepthi banerjee [facility] - [place] [facility], [address] [place] [address] 200 [place] [id number] 0 Phone: () - 05/06 CBC w/ auto diff HCT % 35.0 48.0 40.7 FINAL Deepthi banerjee [facility] - [place], [address] [place] [address] 200 [place] [id number] 0 Phone: () - 05/06 CBC w/ auto diff MCV fL 80.0 104.0 89.1 FINAL Deepthi banerjee On[facility] - [place] [facility], [address] [place] [address] 200 [place] [id number] 0 Phone: () - 05/06 CBC w/ auto diff MCH pg 26.0 35.0 29.8 FINAL Deepthi banerjee On[facility] - [place] [facility], [address] [place] [address] 200 [place] [id number] 0 Phone: () - 05/06 CBC w/ auto diff MCHC g/dL 30.0 35.0 33.4 FINAL Deepthi banerjee [facility] - [place] [facility], [address] [place] [address] 200 [place] [id number] 0 Phone: () - 05/06 CBC w/ auto diff MPV fL 9.5 13.4 9.3 Low FINAL Deepthi Clemens [facility] - [place] [facility], [address] [place] [address] 200 [place] [phone] 0 Phone: () - 05/06 CBC w/ auto diff RDW % 11.4 16.1 13.60 FINAL Deepthi Clemens lav[facility] - [place] [facility], [address] [place] [address] 200 [place] [id number] 0 Phone: () - 05/06 Retic ulocy te count panel Retic ulocy te, absol [place] M/uL 0.02 0.08 0.07 FINAL Deepthi Clemens lavonne [facility] - [place] [facility], [address] [place] [address] 200 [place] [id number] 0 Phone: () - 05/06 Retic ulocy te count panel Retic ulocy te count % 0.4 1.6 1.60 FINAL Deepthi Clemens lav[facility] - [place] [facility], [address] [place] [address] 200 [place] [id number] 0 Phone: () - 05/06 Retic ulocy te count panel Immat ure retic ulocy te fract ion, % % 0.0 16.5 9.70 FINAL Deepthi Clemens lavonne [facility] - [place] [facility], [address] [place] [address] 200 [place] [id number] 0 Phone: () - 05/06 Retic ulocy te count panel Retic ulocy te cellu lar hemog lobin pg 28.0 37.0 33.[address] [facility] lis, [address] [place] [address] [facility] [phone] 0 Phone: () - 05/06 CMP Album in g/dL 3.2 5.2 4.7 FINAL [place] [address] [phone] 0 Phone: () - 05/06 CMP Alkal ine phosp hatas e U/L 46.0 116.0 73 FINAL [place] [address] [id number] 0 Phone: () - 05/06 CMP ALT/S GPT U/L 7.0 40.0 19 FINAL [place] [address] [id number] 0 Phone: () - 05/06 CMP AST/S GOT U/L 13.0 40.0 21 FINAL [place] [address] [id number] 0 Phone: () - 05/06 CMP BUN mg/dL 9.0 23.0 16.0 FINAL [place] [address] [phone] 0 Phone: () - 05/06 CMP Calci um mg/dL 8.7 10.4 9.8 FINAL Deepthi Dodge [place] [address] [phone] 0 Phone: () - 05/06 CMP Chlor ray mmol/L 96.0 114.0 107 FINAL [place] [address] [phone] 0 Phone: () - 05/06 CMP CO2 [...] 96 hour stability window. FINAL Deepthi banerjee [place] [address] [phone] 0 Phone: () - 05/06 CMP Creat inine mg/dL 0.5 1.2 0.80 FINAL Deepthi banerjee [place] [address] [phone] 0 Phone: () - 05/06 CMP GFR estim ate ml/min /1.73m ^2 90.1 GFR is calculate d using the CKD-EPI equation. FINAL Deepthi Clemens lav[place] [address] [phone] 0 Phone: () - 05/06 CMP Gluco se mg/dL 73.0 126.0 128 High FINAL Deepthi Clemens lav[place] [address] [id number] 0 Phone: () - 05/06 CMP Potas sium mmol/L 3.5 5.1 3.9 FINAL Deepthi Clemens lav[place] [address] [id number] 0 Phone: () - 05/06 CMP Sodiu m mmol/L 136.0 145.0 142 FINAL [place] [address] [phone] 0 Phone: () - 05/06 CMP Bilir ubin, total mg/dL 0.3 1.2 0.2 Low FINAL [place] [address] [id number] 0 Phone: () - 05/06 CMP Total prote in g/dL 5.7 8.2 7.1 FINAL [place] [address] [facility] 100 [facility] [phone] 0 Phone: () - 05/06 LDH panel LDH U/L 120.0 246.0 191 FINAL Deepthi Eli [facility] [place], [address] [facility] [address] [facility] [phone] 0 Phone: () - Medications Date Name [...]
--- NOTE | 2025-03-02 09:54 | ED.GENADULT ---
HPI - General Adult General Date Seen: 03/02/25 Chief complaint: Ear/Nose/Throat Problem Stated complaint: Throat feels weird after eating Time Seen by Provider: 03/02/25 09:42 History of Present Illness HPI narrative: Patient is a 50-year-old woman here for evaluation of possible foreign body ingestion. I saw her last month with hypertension, started her back on her medications. She notes that she did follow up and has her medications prescribed. She says that she has not taken them for the past couple of days because she staying with her mother whose health is declining. Her medications are her at her place and she has not been home. Last night, at around 4:00 a.m., she says that she had a [employer] peanut butter cup. She felt something on the inside of it that was not peanut butter, she spitted out into a bag but has been afraid to look at it. She says she was worried that it was a baby rodent and that her immune system might plummet in response to something she might have been exposed to if it was a baby rodent. Her throat feels weird, she is tearful and upset, extremely anxious. Related Data Home Medications ?Medication ?Instructions ?Recorded ?Confirmed albuterol sulfate 90 mcg/actuation inhalation 05/04/23 aerosol inhaler (Ventolin HFA) furosemide 20 mg tablet 20 mg PO BID 05/04/23 05/04/23 lisinopril 10 mg tablet 10 mg PO DAILY 05/04/23 05/04/23 potassium chloride 10 mEq 10 meq PO DAILY 05/04/23 05/04/23 tablet,extended release Previous Rx's ?Medication ?Instructions ?Recorded benzonatate 100 mg capsule 100 mg PO BID-TID PRN cough #14 03/06/23 caps furosemide 20 mg tablet 20 mg PO BID #60 tabs 02/07/25 lisinopril 10 mg tablet 10 mg PO DAILY #30 tabs 02/07/25 Allergies Allergy/AdvReac Type Severity Reaction Status Date / Time escitalopram (From Lexapro) Allergy Severe Seizure Verified 05/04/23 01:45 Review of Systems Status of ROS: Reports: 6 or more systems reviewed and unremarkable except as noted in History and below [facility] Medical History GERD (gastroesophageal reflux disease) ?K21.9 - Gastro-esophageal reflux disease without esophagitis (ICD-10) RLS (restless legs syndrome) ?G25.81 - Restless legs syndrome (ICD-10) Fibromyalgia ?M79.7 - Fibromyalgia (ICD-10) Migraine ?G43.909 - Migraine, unspecified, not intractable, without status migrainosus (ICD-10) Chronic low back pain ?M54.50 - Low back pain, unspecified (ICD-10) ?G89.29 - Other chronic pain (ICD-10) Pleural effusion ?J90 - Pleural effusion, not elsewhere classified (ICD-10) TLL (T-cell lymphoblastic lymphoma) ?C83.50 - Lymphoblastic (diffuse) lymphoma, unspecified site (ICD-10) Acute embolism and thrombosis of right internal jugular vein ?I82.C11 - Acute embolism and thrombosis of right internal jugular vein (ICD-10) Depression ?F32.A - Depression, unspecified (ICD-10) Acute deep vein thrombosis (DVT) of axillary vein of right upper extremity ?I82.A11 - Acute embolism and thrombosis of right axillary vein (ICD-10) Hyperglycemia ?R73.9 - Hyperglycemia, unspecified (ICD-10) Hyponatremia ?E87.1 - Hypo-osmolality and hyponatremia (ICD-10) Compression fracture of T4 vertebra ?S22.040A - Wedge compression fracture of fourth thoracic vertebra, initial encounter for closed fracture (ICD-10) Tubal without intrauterine ?O00.109 - Unspecified tubal without intrauterine (ICD-10) Heartburn ?R12 - Heartburn (ICD-10) Barretts esophagus ?K22.70 - Berumen's esophagus without dysplasia (ICD-10) Anxiety ?F41.9 - Anxiety disorder, unspecified (ICD-10) Surgical History History of partial hysterectomy ?Z90.711 - Acquired absence of uterus with remaining cervical stump (ICD-10) History of Bharat fundoplication ?Z98.890 - Other specified postprocedural states (ICD-10) History of cholecystectomy ?Z90.49 - Acquired absence of other specified parts of digestive tract (ICD-10) Social History Smoking Status: Current every day smoker What tobacco products do you use: cigarettes Do you use any of these nicotine containing products: None Second hand tobacco smoke exposure: No How often do you have a drink containing alcohol: never How often do you have six or more drinks on one occasion: Never AUDIT-C Alcohol total score: 0 Non-prescribed substance use: denies use service: No Exam Narrative: Exam Narrative: Vital signs reviewed In general, alert, nontoxic middle-aged woman. Breathing easily, upset. Head: Normocephalic, atraumatic. Eyes: Sclera clear. Pupils equal and reactive. ENT: Mucous membranes moist. Throat is normal. Neck: Supple without adenopathy. Heart: Regular rate and rhythm without murmur. Lungs: Clear. No increased work of breathing, crackles or wheezes. Abdomen: Soft, nontender to palpation. Extremities: Well perfused, pulses intact. No significant edema. Neurologic: Alert, conversant. Speech fluent, face symmetric. Moves all extremities equally. Skin: Warm, dry well perfused. Affect: Anxious, tearful. Const: Vital Signs, click to edit/add: Vital Signs - 24 hr 03/02/25 09:20 Temperature 98.1 F Pulse Rate [Pulse Oximeter] 83 Respiratory Rate 18 Blood Pressure [Ri ght Upper Arm] 173/118 H Pulse Oximetry 98 Oxygen Delivery Me thod Room Air Course Course ED Course: I examined the baggy she brought with her. There is in fact some kind of foreign material along with some chocolate in a [employer] peanut butter cup wrapper. I can not tell exactly what this is, has the shape, color and consistency of a raisin, but admitted to her I am not sure exactly what it is. However, I am certain that it is not biologic, there are no indications appendages, internal organs, blood etcetera. Her exam is normal. I do think she is under considerable stress, she notes that she is barely coping with all of the things that are going on right now. She does have a counselor she seen previously, last time was a couple years ago, but she says she can reach out to them. She denies need for any other specific mental health needs at this time. Return as needed, encouraged her to make sure she is taking her blood pressure medicines as prescribed. Vital Signs Vital signs: Initial Vital Signs Temperature 98.1 F 03/02/25 09:20 Temperature Source Temporal Artery Scan 03/02/25 09:20 Pulse Rate 83 03/02/25 09:20 Pulse Rhythm Regular 03/02/25 09:20 Respiratory Rate 18 03/02/25 09:20 Blood Pressure 173/118 H 03/02/25 09:20 Blood Pressure Mean 136 H 03/02/25 09:20 Blood Pressure Position Sitting 03/02/25 09:20 Pulse Oximetry 98 03/02/25 09:20 Oxygen Delivery Method Room Air 03/02/25 09:20 Vital Signs Temperature 98.1 F 03/02/25 09:20 Pulse Rate 83 03/02/25 09:20 Respiratory Rate 18 03/02/25 09:20 Blood Pressure 173/118 H 03/02/25 09:20 Pulse Oximetry 98 03/02/25 09:20 Oxygen Delivery Method Room Air 03/02/25 09:20 Temperature 98.1 F 03/02/25 09:20 Pulse Rate 83 03/02/25 09:20 Respiratory Rate 18 03/02/25 09:20 Blood Pressure 173/118 H 03/02/25 09:20 Pulse Oximetry 98 03/02/25 09:20 Oxygen Delivery Method Room Air 03/02/25 09:20 Discharge Plan Discharge Clinical Impression: Suspected condition not found Patient Disposition: Home, Self-Care Condition: Stable Additional Instructions: As discussed, I think follow-up with your counselor/therapist would be beneficial for you. Make sure you are getting some breaks from care for your mother as able. Prescriptions: No Action benzonatate 100 mg capsule 100 mg PO BID-TID PRN (Reason: cough) Qty: 14 0RF potassium chloride 10 mEq tablet extended release 10 meq PO DAILY lisinopril 10 mg tablet 10 mg PO DAILY furosemide 20 mg tablet 20 mg PO BID albuterol sulfate [Ventolin HFA] 90 mcg/actuation HFA aerosol inhaler inhalation lisinopril 10 mg tablet 10 mg PO DAILY Qty: 30 2RF furosemide 20 mg tablet 20 mg PO BID Qty: 60 2RF Follow Up/Referrals: Provider,Not a Local [Primary Care Provider] - Stand Alone Forms: [facility] Info Instructions
--- OUTSIDE RECORDS SUMMARY | 2025-03-02 10:13 | XMS_ITS ---
Author Name Interface, [id number] lity Address [address] [place] [address] [address] [address] [facility] Oncology Address [address] [facility] [address] [place] [address] Care Team Providers Care Application Administrator Name Role Phone Deepthi Dodge Unavailable Unavailable [...] 246.0 191 FINAL Deepthi banerjee Oncology - [place], [address] [facility] [address] [facility] [id number] 0 Phone: () - 05/06 CBC w/ auto diff WBC K/uL 3.0 8.9 8.4 FINAL Deepthi banerjee Oncology - [facility] lis, [address] [place] [address] [address] [facility] [id number] Phone: () - 05/06 CBC w/ auto diff HGB g/dL 11.3 15.2 13.6 FINAL Deepthi banerjee Oncology - [place], [address] [place] [address] [address] [place] [id number] 0 Phone: () - 05/06 CBC w/ auto diff PLT K/uL 113.0 364.0 266 FINAL Deepthi banerjee Oncology - [place], [address] [place] [address] [address] [place] [id number] 0 Phone: () - 05/06 CBC w/ auto diff Dawna # (ANC) K/uL 1.6 6.6 3.9 FINAL Deepthi banerjee Oncology - [place], [address] [place] [address] [address] [place] [id number] 0 Phone: () - 05/06 CBC w/ auto diff Dawna % % 43.0 74.0 46.7 FINAL Deepthi banerjee Oncology - [place], [address] [place] [address] [address] [place] [id number] 0 Phone: () - 05/06 CBC w/ auto diff IG % % 0.0 0.5 0.5 FINAL Deepthi banerjee Oncology - [place], [address] [place] [address] [address] [place] [id number] 0 Phone: () - 05/06 CBC w/ auto diff IG # K/uL 0.0 0.03 0.04 High FINAL Deepthi banerjee Oncology - [place], [address] [place] [address] [address] [place] [id number] 0 Phone: () - 05/06 CBC w/ auto diff LY % % 14.0 41.0 44.8 High FINAL Deepthi banerjee Oncology - [place], [address] [place] [address] [address] [place] [id number] 0 Phone: () - 05/06 CBC w/ auto diff MO % % 6.0 15.0 6.2 FINAL Deepthi banerjee Oncology - [place], [address] [place] [address] [address] [place] [id number] 0 Phone: () - 05/06 CBC w/ auto diff EO % % 0.0 7.0 1.4 FINAL Deepthi banerjee Oncology - [place], [address] [place] [id number] 0 Phone: () - 05/06 CBC w/ auto diff BA % % 0.0 2.0 0.4 FINAL Deepthi banerjee Oncology [place] [facility], [address] [place] [address] [address] [place] [id number] 0 Phone: () - 05/06 CBC w/ auto diff LY # K/uL 0.4 3.6 3.8 High FINAL Deepthi banerjee Oncology [place] [facility], [address] [place] [address] [address] [place] [id number] 0 Phone: () - 05/06 CBC w/ auto diff MO # K/uL 0.2 1.3 0.5 FINAL Deepthi banerjee Oncology - [place] [facility], [address] [place] [address] [address] [place] [id number] 0 Phone: () - 05/06 CBC w/ auto diff EO # K/uL 0.0 0.6 0.1 FINAL Deepthi banerjee Oncology - [place] [facility], [address] [place] [address] [address] [place] [id number] 0 Phone: () - 05/06 CBC w/ auto diff BA # K/uL 0.0 0.2 0.0 FINAL Deepthi banerjee Oncology - [place] [facility], [address] [place] [address] [address] [place] [id number] 0 Phone: () - 05/06 CBC w/ auto diff NRBC % #/100W BC 0.0 0.2 0.0 FINAL Deepthi banerjee Oncology - [place] [facility], [address] [place] [address] [address] [place] [id number] 0 Phone: () - 05/06 CBC w/ auto diff RBC M/uL 3.9 5.1 4.57 FINAL Deepthi banerjee Oncology - [place] [facility], [address] [place] [address] [address] [place] [id number] 0 Phone: () - 05/06 CBC w/ auto diff HCT % 35.0 48.0 40.7 FINAL Deepthi banerjee Oncology - [place] [facility], [address] [place] [address] [address] [facility] [place] [id number] 0 Phone: () - 05/06 CBC w/ auto diff MCV fL 80.0 104.0 89.1 FINAL Deepthi banerjee Oncology - [place], [address] [place] [address] 200 [place] [id number] 0 Phone: () - 05/06 CBC w/ auto diff MCH pg 26.0 35.0 29.8 FINAL Deepthi banerjee Oncology - [place] [facility], [address] [place] [address] [address] [facility] [place] [id number] 0 Phone: () - 05/06 CBC w/ auto diff MCHC g/dL 30.0 35.0 33.4 FINAL Deepthi banerjee Oncology - [place] [facility], [address] [place] [address] [address] [facility] [place] [id number] 0 Phone: () - 05/06 CBC w/ auto diff MPV fL 9.5 13.4 9.3 Low FINAL Deepthi banerjee Oncology - [place] [facility], [address] [place] [address] 200 [facility] [place] [id number] 0 Phone: () - 05/06 CBC w/ auto diff RDW % 11.4 16.1 13.60 FINAL Deepthi banerjee Oncology - [place] [facility], [address] [place] [address] [address] [facility] [place] [id number] 0 Phone: () - 05/06 Retic ulocy te count panel Retic ulocy te, absol bc M/uL 0.02 0.08 0.07 FINAL Deepthi banerjee Oncology - [place] [facility], [address] [place] [address] 200 [place] [id number] 0 Phone: () - 05/06 Retic ulocy te count panel Retic ulocy te count % 0.4 1.6 1.60 FINAL Deepthi banerjee Oncology - [place] [facility], [address] [place] [address] 200 [place] [id number] 0 Phone: () - 05/06 Retic ulocy te count panel Immat ure retic ulocy te fract ion, % % 0.0 16.5 9[address] [facility], [address] [place] [id number] 0 Phone: () - 05/06 Retic ulocy te count panel Retic ulocy te cellu lar hemog lobin pg 28.0 37.0 33.0 FINAL Deep[address] Clemens [address] [facility], [address] [place] [id number] 0 Phone: () - 05/06 CMP Album in g/dL 3.2 5.2 4.7 [place]AL [place] [address] [facility] [address] [place] [address] [id number] Phone: () - 05/06 CMP Alkal ine phosp hatas e U/L 46.0 116.0 73 FINAL Deepthi Dodge [place] [address] [id number] 0 Phone: () - 05/06 CMP ALT/S GPT U/L 7.0 40.0 19 FINAL [place] [address] [id number] 0 Phone: () - 05/06 CMP AST/S GOT U/L 13.0 40.0 21 FINAL [place] [address] [id number] 0 Phone: () - 05/06 CMP BUN mg/dL 9.0 23.0 16.0 FINAL [place] [address] [id number] 0 Phone: () - 05/06 CMP Calci um mg/dL 8.7 10.4 9.8 FINAL [place] [address] [id number] 0 Phone: () - 05/06 CMP Chlor ray mmol/L 96.0 114.0 107 FINAL Deepthi Dodge [place] [address] [id number] 0 Phone: () - 05/06 CMP CO2 [...] 96 hour stability window. FINAL Deepthi banerjee [place] [address] [id number] 0 Phone: () - 05/06 CMP Creat inine mg/dL 0.5 1.2 0.80 FINAL [place] [address] [id number] 0 Phone: () - 05/06 CMP GFR estim ate ml/min /1.73m ^2 90.1 GFR is calculate d using the CKD-EPI equation. FINAL [place] [address] [id number] 0 Phone: () - 05/06 CMP Gluco se mg/dL 73.0 126.0 128 High FINAL [place] [address] [id number] 0 Phone: () - 05/06 CMP Potas sium mmol/L 3.5 5.1 3.9 FINAL [place] [address] [id number] 0 Phone: () - 05/06 CMP Sodiu m mmol/L 136.0 145.0 142 FINAL Deepthi Eli [place] [address] [id number] 0 Phone: () - 05/06 CMP Bilir ubin, total mg/dL 0.3 1.2 0.2 Low FINAL Deep[place] [address] [id number] 0 Phone: () - 05/06 CMP Total prote in g/dL 5.7 8.2 7.1 FINAL Deepthi banerjee Oncology - [place], [address] [facility] [address] [facility] [id number] Phone: () - Medications Date Name [...] old woman who was admitted 04/03/2019 from [place] to [facility] with dyspnea and a left [...] mg po q 12 hours, D1,2, Aspariginase 53113 u IM day 3 + Neulasta. * [...] for Consolidation?? Block 9:??She received??with CTX, MTX, MARINE FARMER-16 + growth factor support with neulasta * [...] oncologic illness. Social History Xin is to Tristna and they have 3 children. She smokes [...]
--- OUTSIDE RECORDS SUMMARY | 2025-03-02 10:13 | XMS_ITS ---
Author Name Interface, [id number] lity Address [address] [place] [address] [address] [address] [facility] Oncology Address [address] [facility] [address] [place] [address] Care Team Providers Care Tailer Off Name Role Phone Deepthi Dodge Unavailable Unavailable [...] 246.0 191 FINAL Deepthi banerjee Oncology - [place], [address] [facility] [address] [facility] [id number] Phone: () - 05/06 CBC w/ auto diff WBC K/uL 3.0 8.9 8.4 FINAL Deepthi banerjee Oncology - [facility] lis, [address] [place] [address] [address] [facility] [id number] 0 Phone: () - 05/06 CBC w/ auto diff HGB g/dL 11.3 15.2 13.6 FINAL Deepthi banerjee Oncology - [place], [address] [place] [address] [address] [place] [id number] 0 Phone: () - 05/06 CBC w/ auto diff PLT K/uL 113.0 364.0 266 FINAL Deepthi banerjee Oncology - [place], [address] [place] [address] [address] [place] [id number] 0 Phone: () - 05/06 CBC w/ auto diff Dawna # (ANC) K/uL 1.6 6.6 3.9 FINAL Deepthi banerjee Oncology - [place], [address] [place] [address] [address] [place] [id number] 0 Phone: () - 05/06 CBC w/ auto diff Dawna % % 43.0 74.0 46.7 FINAL Deepthi banerjee Oncology - [place], [address] [place] [address] [address] [place] [id number] 0 Phone: () - 05/06 CBC w/ auto diff IG % % 0.0 0.5 0.5 FINAL Deepthi banerjee Oncology - [place], [address] [place] [address] [address] [place] [id number] 0 Phone: () - 05/06 CBC w/ auto diff IG # K/uL 0.0 0.03 0.04 High FINAL Deepthi banerjee Oncology - [place], [address] [place] [address] [address] [place] [id number] 0 Phone: () - 05/06 CBC w/ auto diff LY % % 14.0 41.0 44.8 High FINAL Deepthi banerjee Oncology - [place], [address] [place] [address] [address] [place] [id number] 0 Phone: () - 05/06 CBC w/ auto diff MO % % 6.0 15.0 6.2 FINAL Deepthi banerjee Oncology - [place], [address] [place] [address] [address] [place] [id number] 0 Phone: () - 05/06 CBC w/ auto diff EO % % 0.0 7.0 1.4 FINAL Deepthi banerjee Oncology - [place], [address] [place] [id number] 0 Phone: () - 05/06 CBC w/ auto diff BA % % 0.0 2.0 0.4 FINAL Deepthi banerjee Oncology - [place] [facility], [address] [place] [address] [address] [place] [id number] 0 Phone: () - 05/06 CBC w/ auto diff LY # K/uL 0.4 3.6 3.8 High FINAL Deepthi banerjee Oncology - [place] [facility], [address] [place] [address] [address] [place] [id number] 0 Phone: () - 05/06 CBC w/ auto diff MO # K/uL 0.2 1.3 0.5 FINAL Deepthi banerjee Oncology - [place] [facility], [address] [place] [address] [address] [place] [id number] 0 Phone: () - 05/06 CBC w/ auto diff EO # K/uL 0.0 0.6 0.1 FINAL Deepthi banerjee Oncology - [place] [facility], [address] [place] [address] [address] [place] [id number] 0 Phone: () - 05/06 CBC w/ auto diff BA # K/uL 0.0 0.2 0.0 FINAL Deepthi banerjee Oncology - [place] [facility], [address] [place] [address] [address] [place] [id number] 0 Phone: () - 05/06 CBC w/ auto diff NRBC % #/100W BC 0.0 0.2 0.0 FINAL Deepthi banerjee Oncology - [place] [facility], [address] [place] [address] [address] [place] [id number] 0 Phone: () - 05/06 CBC w/ auto diff RBC M/uL 3.9 5.1 4.57 FINAL Deepthi banerjee Oncology - [place] [facility], [address] [place] [address] [address] [place] [id number] 0 Phone: () - 05/06 CBC w/ auto diff HCT % 35.0 48.0 40.7 FINAL Deepthi banerjee Oncology - [place] [facility], [address] [place] [address] 200 [facility] [place] [id number] 0 Phone: () - 05/06 CBC w/ auto diff MCV fL 80.0 104.0 89.1 FINAL Deepthi banerjee Oncology - [place], [address] [place] [address] 200 [place] [id number] 0 Phone: () - 05/06 CBC w/ auto diff MCH pg 26.0 35.0 29.8 FINAL Deepthi banerjee Oncology - [place] [facility], [address] [place] [address] [address] [facility] [place] [id number] 0 Phone: () - 05/06 CBC w/ auto diff MCHC g/dL 30.0 35.0 33.4 FINAL Deepthi banerjee Oncology - [place] [facility], [address] [place] [address] 200 [facility] [place] [id number] 0 Phone: () - 05/06 CBC w/ auto diff MPV fL 9.5 13.4 9.3 Low FINAL Deepthi banerjee Oncology - [place] [facility], [address] [place] [address] [address] [facility] [place] [id number] 0 Phone: () - 05/06 CBC w/ auto diff RDW % 11.4 16.1 13.60 FINAL Deepthi banerjee Oncology - [place] [facility], [address] [place] [address] [address] [facility] [place] [id number] 0 Phone: () - 05/06 Retic ulocy te count panel Retic ulocy te, absol bc M/uL 0.02 0.08 0.07 FINAL Deepthi banerjee Oncology - [place] [facility], [address] [place] [address] 200 [place] [id number] 0 Phone: () - 05/06 Retic ulocy te count panel Retic ulocy te count % 0.4 1.6 1.60 FINAL Deepthi banerjee Oncology - [place] [facility], [address] [place] [address] 200 [place] [id number] 0 Phone: () - 05/06 Retic ulocy te count panel Immat ure retic ulocy te fract ion, % % 0.0 16.5 9.[address] [facility], [address] [place] [id number] 0 Phone: () - 05/06 Retic ulocy te count panel Retic ulocy te cellu lar hemog lobin pg 28.0 37.0 33.0 FINAL [address] Clemens [address] [facility], [address] [place] [id number] 0 Phone: () - 05/06 CMP Album in g/dL 3.2 5.2 4.7 FINAL [place] [address] [address] [facility] [address] [place] [address] [id number] 0 Phone: () - 05/06 CMP Alkal ine phosp hatas e U/L 46.0 116.0 73 FINAL Deepthi Dodge [place] [address] [id number] 0 Phone: () - 05/06 CMP ALT/S GPT U/L 7.0 40.0 19 FINAL [place] [address] [id number] 0 Phone: () - 05/06 CMP AST/S GOT U/L 13.0 40.0 21 FINAL [place] [address] [id number] 0 Phone: () - 05/06 CMP BUN mg/dL 9.0 23.0 16.0 FINAL [place] [address] [id number] 0 Phone: () - 05/06 CMP Calci um mg/dL 8.7 10.4 9.8 FINAL [place] [address] [id number] 0 Phone: () - 05/06 CMP Chlor ray mmol/L 96.0 114.0 107 FINAL Deepthi Dodge [place] [address] [id number] 0 Phone: () - 05/06 CMP CO2 [...] stability window. FINAL Deepthi banerjee [place] [address] [id number] 0 Phone: () - 05/06 CMP Creat inine mg/dL 0.5 1.2 0.80 FINAL [place] [address] [id number] 0 Phone: () - 05/06 CMP GFR estim ate ml/min /1.73m ^2 90.1 GFR is calculate d using the CKD-EPI equation. FINAL [place] [address] [id number] 0 Phone: () - 05/06 CMP Gluco se mg/dL 73.0 126.0 128 High FINAL [place] [address] [id number] 0 Phone: () - 05/06 CMP Potas sium mmol/L 3.5 5.1 3.9 FINAL [place] [address] [id number] 0 Phone: () - 05/06 CMP Sodiu m mmol/L 136.0 145.0 142 FINAL Deepthi Eli [place] [address] [id number] 0 Phone: () - 05/06 CMP Bilir ubin, total mg/dL 0.3 1.2 0.2 Low FINAL [place] [address] [id number] 0 Phone: () - 05/06 CMP Total prote in g/dL 5.7 8.2 7.1 FINAL Deepthi banerjee Oncology - [place], [address] [facility] [address] [facility] [id number] 0 Phone: () - Medications Date Name [...] old woman who was admitted 04/03/2019 from [place] to [facility] with dyspnea and a left neck mass. [...] mg po q 12 hours, D1,2, Aspariginase 93700 u IM day 3 + Neulasta. * [...] for Consolidation?? Block 9:??She received??with CTX, MTX, CORRECTIONS CADET-16 + growth factor support with neulasta * [...]
--- OUTSIDE RECORDS SUMMARY | 2025-03-02 10:13 | XMS_ITS | CCD ---
Author Name Interface, [id number] lity Address [address] [place] [address] [address] [address] Organization [facility] Address [address] [facility] [address] [place] [address] Care Team Providers Care Technical Solutions Director Name Role Phone ChristiDeepthi haywood Unavailable Unavailable [...] Name Instructions Status 05/09/2024 Physician Order RTC MD/COUNTY ASSESSOR Ordered Social History Date Name Value 05/01/2023 Sex Female
--- OUTSIDE RECORDS SUMMARY | 2025-03-02 10:13 | XMS_ITS ---
Author Name Interface, [id number] lity Address [address] [place] [address] [address] [place] [address] Organization [facility] Address [address] [facility] [address] [place] [address] Care Team Providers Care Stock Roller Name Role Phone Bernabe Jang Milton Unavailable [...] Abnor mal FINAL [facility], [address] [place] [id number] 0 Phone: () - 12/14 CBC w/ auto diff WBC K/uL 3.0 8.9 3.9 FINAL [facility], [address] 200 [facility] [place] [id number] 0 Phone: () - 12/14 CBC w/ auto diff HGB g/dL 11.3 15.2 9.3 Low FINAL Mady banerjee [facility] - [place], [address] 200 [place] [id number] 0 Phone: () - 12/14 CBC w/ auto diff PLT K/uL 113.0 364.0 372 High FINAL Mady banerjee [facility] - [place], [address] [place] [address] 200 [facility] [place] [id number] 0 Phone: () - 12/14 CBC w/ auto diff Dawna # (ANC) K/uL 1.6 6.6 2.1 FINAL Mady banerjee [facility] - [place], [address] [place] [address] 200 [facility] [place] [id number] 0 Phone: () - 12/14 CBC w/ auto diff Dawna % % 43.0 74.0 54.9 FINAL Mady banerjee [facility] - [place], [address] [place] [address] 200 [facility] [place] [id number] 0 Phone: () - 12/14 CBC w/ auto diff IG % % 0.0 0.5 0.5 FINAL Mady banerjee [facility] - [place], [address] [place] [address] 200 [facility] [place] [id number] 0 Phone: () - 12/14 CBC w/ auto diff IG # K/uL 0.0 0.03 0.02 FINAL Mady banerjee [facility] - [place], [address] [place] [address] 200 [facility] [place] [id number] 0 Phone: () - 12/14 CBC w/ auto diff LY % % 14.0 41.0 26.2 FINAL Mady banerjee [facility] - [place], [address] [place] [address] 200 [place] [id number] 0 Phone: () - 12/14 CBC w/ auto diff MO % % 6.0 15.0 16.6 High FINAL Mady banerjee [facility] - [place], [address] [place] [address] 200 [facility] [place] [id number] 0 Phone: () - 12/14 CBC w/ auto diff EO % % 0.0 7.0 1.3 FINAL Mady banerjee [facility] - [place], [address] [place] [address] [address] [place] [id number] 0 Phone: () - 12/14 CBC w/ auto diff BA % % 0.0 2.0 0.5 FINAL Mady banerjee [facility] - [place], [address] [place] [address] [address] [place] [id number] 0 Phone: () - 12/14 CBC w/ auto diff LY # K/uL 0.4 3.6 1.0 FINAL Mady banerjee [facility] - [place], [address] [place] [address] [address] [place] [id number] 0 Phone: () - 12/14 CBC w/ auto diff MO # K/uL 0.2 1.3 0.6 FINAL Mady banerjee [facility] - [place], [address] [place] [address] [address] [place] [id number] 0 Phone: () - 12/14 CBC w/ auto diff EO # K/uL 0.0 0.6 0.1 FINAL Mady banerjee [facility] - [place], [address] [place] [address] [address] [place] [id number] 0 Phone: () - 12/14 CBC w/ auto diff BA # K/uL 0.0 0.2 0.0 FINAL Mady banerjee [facility] - [place], [address] [place] [address] [address] [place] [id number] 0 Phone: () - 12/14 CBC w/ auto diff NRBC % #/100W BC 0.0 0.2 0.0 FINAL Mady banerjee [facility] - [place], [address] [place] [address] [address] [place] [id number] 0 Phone: () - 12/14 CBC w/ auto diff HCT % 35.0 48.0 29.6 Low FINAL Mady banerjee [facility] - [place], [address] [place] [address] [address] [place] [id number] 0 Phone: () - 12/14 CBC w/ auto diff MCV fL 80.0 104.0 113.8 High FINAL Mady banerjee [facility] [place] [facility], [address] [place] [address] 200 [place] [id number] 0 Phone: () - 12/14 CBC w/ auto diff MCH pg 26.0 35.0 35.8 High FINAL Mady banerjee [facility] - [place] [facility], [address] 200 [place] [id number] 0 Phone: () - 12/14 CBC w/ auto diff MCHC g/dL 30.0 35.0 31.4 FINAL Mady banerjee [facility] - [place] [facility], [address] [place] [address] 200 [place] [id number] 0 Phone: () - 12/14 CBC w/ auto diff MPV fL 9.5 13.4 9.5 FINAL Mady banerjee [facility] - [place] [facility], [address] [place] [address] 200 [place] [id number] 0 Phone: () - 12/14 CBC w/ auto diff RDW % 11.4 16.1 19.70 High FINAL Mady banerjee [facility] - [place] [facility], [address] [place] [address] 200 [place] [id number] 0 Phone: () - 12/14 CBC w/ auto diff Auto CBC comme nts Slide review to follow FINAL Mady banerjee [facility] - [place] [facility], [address] [place] [address] 200 [place] [id number] 0 Phone: () - 12/14 CBC w/ auto diff RBC M/uL 3.9 5.1 2.60 Low FINAL Mady banerjee [facility] - [place] [facility], [address] [place] [address] 200 [place] [id number] 0 Phone: () - 12/28 CMP Album in g/dL 3.2 5.2 3.9 FINAL [facility] [address] [place] [id number] 0 Phone: () - 12/28 CMP Alkal ine phosp hatas e U/L 46.0 116.0 59 FINAL [facility] [address] [place] [id number] 0 Phone: () - 12/28 CMP ALT/S GPT U/L 7.0 40.0 13 FINAL Idalia Eli [address] [id number] 0 Phone: () - 12/28 CMP AST/S GOT U/L 13.0 40.0 19 FINAL Idalia banerjee [address] [id number] 0 Phone: () - 12/28 CMP BUN mg/dL 9.0 23.0 11 FINAL Idalia Clemens[address] [id number] 0 Phone: () - 12/28 CMP Calci um mg/dL 8.7 10.4 9.7 FINAL Idalia Clemens[address] [id number] 0 Phone: () - 12/28 CMP Chlor ray mmol/L 96.0 114.0 109 FINAL Idalia Clemens[address] [id number] 0 Phone: () - 12/28 CMP CO2 mmol/L 20.0 31.0 29 FINAL Idalia Clemens[address] [id number] 0 Phone: () - 12/28 CMP Creat inine mg/dL 0.5 1.2 0.53 FINAL Idalia Clemens[address] [id number] 0 Phone: () - 12/28 CMP GFR estim ate ml/min /1.73m ^2 114.0 GFR is calculate d using the CKD-EPI equation. FINAL Idalia Clemens[address] [id number] 0 Phone: () - 12/28 CMP Gluco se mg/dL 73.0 126.0 117 FINAL Idalia Clemens[address] [id number] 0 Phone: () - 12/28 CMP Potas sium mmol/L 3.5 5.1 3.4 Low FINAL Idalia banerjee [address] [id number] 0 Phone: () - 12/28 CMP Sodiu m mmol/L 136.0 145.0 145 FINAL Idalia banerjee [facility], [address] [place] [address] 100 [facility] [phone] 0 Phone: () - 12/28 CMP Bilir ubin, total mg/dL 0.3 1.2 0.2 Low FINAL Idalia banerjee [address] 100 [facility] [id number] 0 Phone: () - 12/28 CMP Total prote in g/dL 5.7 8.2 5.6 Low FINAL Idalia banerjee [address] [id number] 0 Phone: () - 12/28 CBC w/ auto diff WBC K/uL 3.0 8.9 5.7 FINAL Idalia banerjee Oncology - [facility], [address] [place] [address] 200 [facility] [place] [id number] 0 Phone: () - 12/28 CBC w/ auto diff HGB g/dL 11.3 15.2 10.4 Low FINAL Idalia banerjee Oncology - [facility], [address] [place] [address] 200 [facility] [place] [id number] 0 Phone: () - 12/28 CBC w/ auto diff PLT K/uL 113.0 364.0 312 FINAL Idalia banerjee Oncology - [facility], [address] [place] [address] 200 [facility] [place] [id number] 0 Phone: () - 12/28 CBC w/ auto diff Dawna # (ANC) K/uL 1.6 6.6 4.1 FINAL [facility], [address] [place] [address] 200 [facility] [place] [id number] 0 Phone: () - 12/28 CBC w/ auto diff Dawna % % 43.0 74.0 72.5 FINAL Idalia banerjee Oncology - [facility], [address] [place] [address] 200 [place] [id number] 0 Phone: () - 12/28 CBC w/ auto diff IG % % 0.0 0.5 0.4 FINAL Idalia banerjee [facility] - [place], [address] 200 [facility] [id number] 0 Phone: () - 12/28 CBC w/ auto diff IG # K/uL 0.0 0.03 0.02 FINAL Idalia banerjee [facility] - [place], [address] 200 [facility] [id number] 0 Phone: () - 12/28 CBC w/ auto diff LY % % 14.0 41.0 14.4 FINAL Idalia banerjee [facility] - [place], [address] [place] [address] 200 [facility] [id number] 0 Phone: () - 12/28 CBC w/ auto diff MO % % 6.0 15.0 9.6 FINAL Idalia banerjee [facility] - [place], [address] [place] [address] 200 [facility] [id number] 0 Phone: () - 12/28 CBC w/ auto diff EO % % 0.0 7.0 2.6 FINAL Idalia banerjee [facility] - [place], [address] [place] [address] 200 [facility] [id number] 0 Phone: () - 12/28 CBC w/ auto diff BA % % 0.0 2.0 0.5 FINAL Idalia banerjee [facility] - [place], [address] [place] [address] 200 [facility] [id number] 0 Phone: () - 12/28 CBC w/ auto diff LY # K/uL 0.4 3.6 0.8 FINAL Idalia banerjee [facility] - [place], [address] [place] [address] 200 [facility] [id number] 0 Phone: () - 12/28 CBC w/ auto diff MO # K/uL 0.2 1.3 0.6 FINAL Idalia banerjee [facility] - [place], [address] [place] [address] 200 [facility] [id number] 0 Phone: () - 12/28 CBC w/ auto diff EO # K/uL 0.0 0.6 0.2 FINAL Idalia banerjee [facility] - [place], [address] [place] [address] [address] [place] [id number] 0 Phone: () - 12/28 CBC w/ auto diff BA # K/uL 0.0 0.2 0.0 FINAL Idalia banerjee [facility] - [place], [address] [place] [address] [address] [place] [id number] 0 Phone: () - 12/28 CBC w/ auto diff NRBC % #/100W BC 0.0 0.2 0.0 FINAL Idalia banerjee [facility] - [place], [address] [place] [address] [address] [place] [id number] 0 Phone: () - 12/28 CBC w/ auto diff RBC M/uL 3.9 5.1 2.97 Low FINAL Idalia banerjee [facility] - [place], [address] [place] [address] [address] [place] [id number] 0 Phone: () - 12/28 CBC w/ auto diff HCT % 35.0 48.0 32.3 Low FINAL Idalia banerjee [facility] - [place], [address] [place] [address] [address] [place] [id number] 0 Phone: () - 12/28 CBC w/ auto diff MCV fL 80.0 104.0 108.8 High FINAL Idalia banerjee [facility] - [place], [address] [place] [address] [address] [place] [id number] 0 Phone: () - 12/28 CBC w/ auto diff MCH pg 26.0 35.0 35.0 FINAL Idalia banerjee [facility] - [place], [address] [place] [address] [address] [place] [id number] 0 Phone: () - 12/28 CBC w/ auto diff MCHC g/dL 30.0 35.0 32.2 FINAL Idalia banerjee [facility] - [place], [address] [place] [address] [address] [place] [id number] 0 Phone: () - 12/28 CBC w/ auto diff MPV fL 9.5 13.4 9.9 FINAL Idalia banerjee [facility] - [place], [address] [place] [address] [address] [place] [id number] 0 Phone: () - 12/28 CBC w/ auto diff RDW % 11.4 16.1 15.20 FINAL Idalia banerjee [facility] - [place], [address] [place] [address] [address] [place] [id number] 0 Phone: () - 12/28 iSTAT creat inine panel Creat inine , iSTAT mg/dl 0.6 1.3 0.5 Low FINAL Idalia banerjee [facility] - [place], [address] [place] [address] [address] [place] [id number] 0 Phone: () - 12/28 iSTAT creat inine panel GFR estim ate ml/min /1.73m ^2 116.2 GFR is calculate d using the CKD-EPI equation. FINAL Idalia banerjee [facility] - [place], [address] [place] [address] [address] [place] [id number] 0 Phone: () - 05/01 CBC w/ auto diff PLT K/uL 113.0 364.0 257 FINAL Asim banerjee [facility] - [place], [address] [place] [address] [address] [place] [id number] 0 Phone: () - 05/01 CBC w/ auto diff Danwa # (ANC) K/uL 1.6 6.6 2.2 FINAL Asim banerjee [facility] - [place], [address] [place] [address] [address] [place] [id number] 0 Phone: () - 05/01 CBC w/ auto diff Dawna % % 43.0 74.0 46.0 FINAL Asim banerjee [facility] - [place], [address] [place] [address] [address] [place] [id number] 0 Phone: () - 05/01 CBC w/ auto diff IG % % 0.0 0.5 0.4 FINAL Asim banerjee [facility] - [place], [address] [place] [address] [address] [place] [id number] 0 Phone: () - 05/01 CBC w/ auto diff IG # K/uL 0.0 0.03 0.02 FINAL Asim banerjee [facility] - [place], [address] [place] [address] [address] [place] [id number] 0 Phone: () - 05/01 CBC w/ auto diff LY % % 14.0 41.0 38.7 FINAL Asim banerjee [facility] - [place], [address] [place] [address] [address] [place] [id number] 0 Phone: () - 05/01 CBC w/ auto diff MO % % 6.0 15.0 10.0 FINAL Asim banerjee [facility] - [place], [address] [place] [address] [address] [place] [id number] 0 Phone: () - 05/01 CBC w/ auto diff EO % % 0.0 7.0 4.3 FINAL Asim banerjee [facility] - [place], [address] [place] [address] [address] [place] [id number] 0 Phone: () - 05/01 CBC w/ auto diff BA % % 0.0 2.0 0.6 FINAL Asim banerjee [facility] - [place], [address] [place] [address] [address] [place] [id number] 0 Phone: () - 05/01 CBC w/ auto diff LY # K/uL 0.4 3.6 1.9 FINAL Asim banerjee [facility] - [place], [address] [place] [address] [address] [place] [id number] 0 Phone: () - 05/01 CBC w/ auto diff MO # K/uL 0.2 1.3 0.5 FINAL Asim banerjee [facility] - [place], [address] [place] [address] [address] [place] [id number] 0 Phone: () - 05/01 CBC w/ auto diff EO # K/uL 0.0 0.6 0.2 FINAL Asim banerjee [facility] - [place], [address] [place] [address] [address] [place] [id number] 0 Phone: () - 05/01 CBC w/ auto diff BA # K/uL 0.0 0.2 0.0 FINAL Asim Eli a [facility] - [place], [address] [place] [address] [address] [place] [id number] 0 Phone: () - 05/01 CBC w/ auto diff NRBC % #/100W BC 0.0 0.2 0.0 FINAL Asim banerjee [facility] - [place], [address] [place] [address] 200 [place] [id number] 0 Phone: () - 05/01 CBC w/ auto diff RBC M/uL 3.9 5.1 4.01 FINAL Asim banerjee [facility] - [place], [address] [place] [address] 200 [place] [id number] 0 Phone: () - 05/01 CBC w/ auto diff HCT % 35.0 48.0 36.8 FINAL Asim banerjee [facility] - [place] [facility], [address] [place] [id number] 0 Phone: () - 05/01 CBC w/ auto diff MCV fL 80.0 104.0 91.8 FINAL Asim banerjee [facility] - [place], [address] [place] [address] 200 [place] [id number] 0 Phone: () - 05/01 CBC w/ auto diff MCH pg 26.0 35.0 31.2 FINAL Asim banerjee [facility] - [place], [address] [place] [address] 200 [place] [id number] 0 Phone: () - 05/01 CBC w/ auto diff MCHC g/dL 30.0 35.0 34.0 FINAL Asim banerjee [facility] - [place], [address] [place] [address] 200 [place] [id number] 0 Phone: () - 05/01 CBC w/ auto diff MPV fL 9.5 13.4 9.1 Low FINAL Asim banerjee [facility] - [place] [facility], [address] [place] [address] 200 [place] [id number] 0 Phone: () - 05/01 CBC w/ auto diff RDW % 11.4 16.1 13.90 FINAL Asim banerjee [facility] - [place], [address] [place] [address] 200 [place] [id number] 0 Phone: () - 05/01 CBC w/ auto diff Auto CBC comme nts Slide review to follow FINAL Asim banerjee [facility] - [place] [facility], [address] [place] [address] [address] [place] [id number] 0 Phone: () - 05/01 CBC w/ auto diff WBC K/uL 3.0 8.9 4.9 FINAL Asim banerjee [facility] - [place] [facility], [address] [place] [address] [address] [place] [id number] 0 Phone: () - 05/01 CBC w/ auto diff HGB g/dL 11.3 15.2 12.5 FINAL Asim banerjee [facility] - [place] [facility], [address] [place] [address] [address] [place] [id number] 0 Phone: () - 05/01 Smear revie w panel CBC Smear revie w comme nts Large and-or giant platele ts present Atypica l (Reacti ve and/or Variant ) Lymphs present Abnor mal FINAL Asim banerjee [facility] - [place] [facility], [address] [place] [address] [address] [place] [id number] 0 Phone: () - 05/01 Retic ulocy te count panel Retic ulocy te, absol council M/uL 0.02 0.08 0.08 FINAL Asim banerjee [facility] - [place] [facility], [address] [place] [address] [address] [place] [id number] 0 Phone: () - 05/01 Retic ulocy te count panel Retic ulocy te count % 0.4 1.6 2.07 High FINAL Asim banerjee [facility] - [place] [facility], [address] [place] [address] [address] [place] [id number] 0 Phone: () - 05/01 Retic ulocy te count panel Immat ure retic ulocy te fract ion, % % 0.0 16.5 10.10 FINAL Asim banerjee [facility] - [place] [facility], [address] [place] [address] [address] [place] [id number] 0 Phone: () - 05/01 Retic ulocy te count panel Retic ulocy te cellu lar hemog lobin pg 28.0 37.0 36.5 FINAL Asim banerjee [facility] - [place] [facility], [address] [place] [address] [address] [place] [id number] 0 Phone: () - 05/01 Path perip heral blood slide revie w panel Patho logy/ Cytol ogy Morph ology SEE RESULTS BELOW CASE REPORTSpe cial Hematolog y Report Case: [id number] 6Authoriz ing Provider: Asim Cornelius MD Collected :05/01/20 20 1447Order ing Location: [facility] Received: 0 1212Patho [...] iagnosed by left neck lymph node biopsy ([id number] , 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 Staging bonemarro w biopsy [...] specimens .ADDITION AL INFORMATI ONInterpr eted at [facility], [facility] - [address], [facility] [place], [place] [address]Ytjd Performed by:[facility] - [facility] [place], [place] [address]Tozf e : FINAL Asim Cornelius 05/01 CMP Album in g/dL 3.2 5.2 4.4 FINAL Asim [address] [place] [id number] 0 Phone: () - 05/01 CMP Alkal ine phosp hatas e U/L 46.0 116.0 76 FINAL Asim Clemens a [address] [place] [id number] 0 Phone: () - 05/01 CMP ALT/S GPT U/L 7.0 40.0 12 FINAL Asim Clemensot a [address] [place] [id number] 0 Phone: () - 05/01 CMP AST/S GOT U/L 13.0 40.0 16 FINAL Asim Clemensot a [address] [place] [id number] 0 Phone: () - 05/01 CMP BUN mg/dL 9.0 23.0 19 FINAL Asim Clemensot a [address] [place] [id number] 0 Phone: () - 05/01 CMP Calci um mg/dL 8.7 [address] [id number] 0 Phone: () - 05/01 CMP Chlor ray mmol/L 96.0 114.[address] [id number] 0 Phone: () - 05/01 CMP CO2 mmol/L 20.0 31.[address] [id number] 0 Phone: () - 05/01 CMP Creat inine mg/dL 0.5 [address] [id number] 0 Phone: () - 05/01 CMP GFR estim ate ml/min /1.73m ^2 97.0 GFR is calculate d using the CKD-EPI equation. [address] [id number] 0 Phone: () - 05/01 CMP Gluco se mg/dL 73.0 126.0 [address] [id number] 0 Phone: () - 05/01 CMP Potas sium mmol/L 3.5 [address] [id number] 0 Phone: () - 05/01 CMP Sodiu m mmol/L 136.0 145.[address] [id number] 0 Phone: () - 05/01 CMP Bilir ubin, total mg/dL 0.3 1.2 0.[address] [id number] 0 Phone: () - 05/01 CMP Total prote in g/dL 5.7 8.2 6.1 FINAL Asim Eli a [facility] - [place], [address] [facility] [address] [place] [id number] 0 Phone: () - 06/19 Retic ulocy te count panel Retic ulocy te, absol council M/uL 0.02 0.08 0.08 FINAL Asim banerjee [facility] - [place] [facility], [address] [place] [address] [address] [place] [id number] 0 Phone: () - 06/19 Retic ulocy te count panel Retic ulocy te count % 0.4 1.6 1.75 High FINAL Asim banerjee [facility] - [place] [facility], [address] [place] [address] [address] [place] [id number] 0 Phone: () - 06/19 Retic ulocy te count panel Immat ure retic ulocy te fract ion, % % 0.0 16.5 10.80 FINAL Asim banerjee [facility] - [place] [facility], [address] [place] [address] [address] [place] [id number] 0 Phone: () - 06/19 Retic ulocy te count panel Retic ulocy te cellu lar hemog lobin pg 28.0 37.0 34.6 FINAL Asim banerjee [facility] - [place] [facility], [address] [place] [address] [address] [place] [id number] 0 Phone: () - 06/19 CBC w/ auto diff WBC K/uL 3.0 8.9 8.7 FINAL Asim banerjee [facility] - [place] [facility], [address] [place] [address] [address] [place] [id number] 0 Phone: () - 06/19 CBC w/ auto diff HGB g/dL 11.3 15.2 14.2 FINAL Asim banerjee [facility] - [place] [facility], [address] [place] [address] [address] [place] [id number] 0 Phone: () - 06/19 CBC w/ auto diff PLT K/uL 113.0 364.0 282 FINAL Asim banerjee [facility] - [place] [facility], [address] [place] [address] [address] [place] [id number] 0 Phone: () - 06/19 CBC w/ auto diff Dawna # (ANC) K/uL 1.6 6.6 4.9 FINAL Asim Clemensot a [facility] - [place], [address] [place] [address] [address] [place] [id number] 0 Phone: () - 06/19 CBC w/ auto diff Dawna % % 43.0 74.0 56.8 FINAL Asimmatt Clemensot a [facility] - [place], [address] [place] [address] [address] [place] [id number] 0 Phone: () - 06/19 CBC w/ auto diff IG % % 0.0 0.5 0.5 FINAL Asimmatt Clemensot a [facility] - [place], [address] [place] [address] [address] [place] [id number] 0 Phone: () - 06/19 CBC w/ auto diff IG # K/uL 0.0 0.03 0.04 High FINAL Asim Clemensot a [facility] - [place], [address] [place] [address] [address] [place] [id number] 0 Phone: () - 06/19 CBC w/ auto diff LY % % 14.0 41.0 33.4 FINAL Asim Clemensot [facility] - [place], [address] [place] [address] [address] [place] [id number] 0 Phone: () - 06/19 CBC w/ auto diff MO % % 6.0 15.0 7.0 FINAL Asim Clemensot [facility] - [place], [address] [place] [address] [address] [place] [id number] 0 Phone: () - 06/19 CBC w/ auto diff EO % % 0.0 7.0 1.8 FINAL Asimmatt Clemensot a [facility] - [place], [address] [place] [address] [address] [place] [id number] 0 Phone: () - 06/19 CBC w/ auto diff BA % % 0.0 2.0 0.5 FINAL Asimmatt Clemensot a [facility] - [place], [address] [place] [address] [address] [place] [id number] 0 Phone: () - 06/19 CBC w/ auto diff LY # K/uL 0.4 3.6 2.9 FINAL Asimmatt [facility] [place] [facility] [place], [address] [place] [address] [address] [place] [id number] 0 Phone: () - 06/19 CBC w/ auto diff MO # K/uL 0.2 1.3 0.6 FINAL Asim banerjee [facility] - [place], [address] [place] [address] [address] [place] [id number] 0 Phone: () - 06/19 CBC w/ auto diff EO # K/uL 0.0 0.6 0.2 FINAL Asim banerjee [facility] - [place], [address] [place] [address] [address] [place] [id number] 0 Phone: () - 06/19 CBC w/ auto diff BA # K/uL 0.0 0.2 0.0 FINAL Asim banerjee [facility] - [place], [address] [place] [address] [address] [place] [id number] 0 Phone: () - 06/19 CBC w/ auto diff NRBC % #/100W BC 0.0 0.2 0.0 FINAL Asim banerjee [facility] - [place], [address] [place] [address] [address] [place] [id number] 0 Phone: () - 06/19 CBC w/ auto diff RBC M/uL 3.9 5.1 4.67 FINAL [facility] [place], [address] [place] [address] [address] [place] [id number] Phone: () - 06/19 CBC w/ auto diff HCT % 35.0 48.0 41.7 FINAL [facility] [place], [address] [place] [address] [address] [place] [id number] 0 Phone: () - 06/19 CBC w/ auto diff MCV fL 80.0 104.0 89.3 FINAL [facility] [place], [address] [place] [address] [address] [place] [id number] 0 Phone: () - 06/19 CBC w/ auto diff MCH pg 26.0 35.0 30.4 FINAL [facility] [place], [address] [place] [address] [address] [place] [id number] 0 Phone: () - 06/19 CBC w/ auto diff MCHC g/dL 30.0 35.0 34.1 FINAL [facility], [address] [place] [address] [address] [place] [id number] 0 Phone: () - 06/19 CBC w/ auto diff MPV fL 9.5 13.4 8.8 Low [facility]AL [facility] System, [address] [place] [address] [address] [place] [phone] Phone: () - 06/19 CBC w/ auto diff RDW % 11.4 16.1 13.10 FINAL Asim banerjee [facility], [address] [place] [address] [address] [place] [phone] 0 Phone: () - 06/19 LDH panel LDH U/L 120.0 246.0 246 FINAL Asim banerjee [facility], [address] [place] [address] [phone] 0 Phone: () - 06/19 CMP Album in g/dL 3.2 5.2 4.6 FINAL Asim banerjee [facility], [address] [facility] [phone] Phone: () - 06/19 CMP Alkal ine phosp hatas e U/L 46.0 116.0 91 FINAL Asim banerjee [facility], [address] [facility] [phone] 0 Phone: () - 06/19 CMP ALT/S GPT U/L 7.0 40.0 27 FINAL Asim Clemens a [facility], [address] [facility] [phone] 0 Phone: () - 06/19 CMP AST/S GOT U/L 13.0 40.0 34 FINAL Asim banerjee [facility], [address] [facility] [phone] 0 Phone: () - 06/19 CMP BUN mg/dL 9.0 23.[address] [facility], [address] [facility] 100 [facility] [phone] 0 Phone: () - 06/19 CMP Calci um mg/dL 8.7 10.4 9.4 [facility], [address] [facility] 100 [facility] [phone] 0 Phone: () - 06/19 CMP Chlor ray mmol/L 96.0 114.0 107 [facility] Asim Cornelius [place] [address] [address] [facility] 100 [facility] [phone] Phone: () - 06/19 CMP CO2 [...] end of the 96 hour stability window. [facility] Asim Cornelius [facility], [facility] [address] [phone] Phone: () - 06/19 CMP Creat inine mg/dL 0.5 1.2 0.68 [facility] [place] [address] [phone] Phone: () - 06/19 CMP GFR estim ate ml/min /1.73m ^2 103.9 GFR is calculate d using the CKD-EPI equation. [facility] Asim Cornelius [facility], [facility] N [address] [phone] 0 Phone: () - 06/19 CMP Gluco se mg/dL 73.0 126.0 95 [facility] [place] [address] [address] [facility] 100 [facility] [phone] 0 Phone: () - 06/19 CMP Potas sium mmol/L 3.5 5.1 4.1 [facility] [place] [address] [phone] 0 Phone: () - 06/19 CMP Sodiu m mmol/L 136.0 145.0 140 FINAL Asim Clemensot a [facility] [place], [address] [facility] [phone] 0 Phone: () - 06/19 CMP Bilir ubin, total mg/dL 0.3 1.2 0.2 Low FINAL Asim Cornelius [place] [facility] [place], [address] [facility] [phone] 0 Phone: () - 06/19 CMP Total prote in g/dL 5.7 8.2 6.9 FINAL Asim Clemensot a [facility] - [place], [address] [facility] [phone] Phone: () - 06/19 Path perip heral blood slide revie w panel Patho logy/ Cytol ogy Morph ology SEE RESULTS BELOW CASE REPORTSpe cial Hematolog y Report Case: [id number] ing Provider: Asim Cornelius MD Collected :06/19/20 21 1340Order ing Location: [facility] Received: 1 1734Patho logist: Elvie Hernández MDSpecime n: BloodFINA L DIAGNOSIS PERIPHERA L BLOOD:1. Negative for circulati ng blasts2. Within normal limitsEle ctronical ly signed by Elvie Hernández MD on 06/20/2021 at 1:03 PMCOMMENT This case was also reviewed by Mis hill [place], [place] ([facility]CL INICAL INFORMATI ONThe patient is a 46-year-o ld female with a history of acute lymphoid leukemia. 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 Staging bone marrow biopsy was negative forlympho ma ([id number]) . Her most recent periphera l blood morpholog y 2019 ([id number] ,05/01/2020 ) was negative for circulati ng [...] blood smear.ADD ITIONAL INFORMATI ONInterpr eted at [facility] - [address], [place], [place] [address]Xwuz Performed by:[facility], [address] - [facility] [place], [place] [address]Fpaf e : FINAL Asim Cornelius 01/19 [facility] other lab See bail attacher d 05/01 [facility] lab See bail attacher d 05/06 LDH panel LDH U/L 120.0 246.0 191 FINAL Deepthi Clemensot a [facility] - [place], [address] [facility] [phone] 0 Phone: () - 05/06 CMP Album in g/dL 3.2 5.2 4.7 FINAL [facility], [address] [facility] [address] [phone] Phone: () - 05/06 CMP Alkal ine phosp hatas e U/L 46.0 116.0 73 FINAL Depethi Dodge [place] [address] [address] [facility] [address] [phone] Phone: () - 05/06 CMP ALT/S GPT U/L 7.0 40.0 19 FINAL Deepthi Dodge [place] [address] [address] [facility] [address] [phone] Phone: () - 05/06 CMP AST/S GOT U/L 13.0 40.0 21 FINAL [place] [address] [address] [facility] [address] [phone] 0 Phone: () - 05/06 CMP BUN mg/dL 9.0 23.0 16.[address] [facility] [address] [facility] [address] [phone] Phone: () - 05/06 CMP Calci um mg/dL 8.7 10.4 9.8 FINAL Deepthi Dodge [place] [address] [address] [facility] [address] [phone] 0 Phone: () - 05/06 CMP Chlor ray mmol/L 96.0 114.[address] [facility] [address] [facility] [address] [phone] Phone: () - 05/06 CMP CO2 [...] 96 hour stability window. FINAL Deepthi Dodge [place] [address] [phone] Phone: () - 05/06 CMP Creat inine mg/dL 0.5 1.2 0.80 FINAL Deepthi Clemens [place] [address] [phone] 0 Phone: () - 05/06 CMP GFR estim ate ml/min /1.73m ^2 90.1 GFR is calculate d using the CKD-EPI equation. FINAL [place] [address] [phone] 0 Phone: () - 05/06 CMP Gluco se mg/dL 73.0 126.0 128 High FINAL [place] [address] [phone] 0 Phone: () - 05/06 CMP Potas sium mmol/L 3.5 5.1 3.9 FINAL [place] [address] [phone] 0 Phone: () - 05/06 CMP Sodiu m mmol/L 136.0 145.0 142 FINAL Deepthi Clemens [place] [address] [phone] 0 Phone: () - 05/06 CMP Bilir ubin, total mg/dL 0.3 1.2 0.2 Low FINAL [place] [address] [phone] 0 Phone: () - 05/06 CMP Total prote in g/dL 5.7 8.2 7.1 FINAL Deepthi Dodge [place] [address] [phone] 0 Phone: () - 05/06 Retic ulocy te count panel Retic ulocy te, absol council M/uL 0.02 0.08 0.07 FINAL [facility], [address] [facility] [phone] 0 Phone: () - 05/06 Retic ulocy te count panel Retic ulocy te count % 0.4 1.6 1.60 FINAL Deepthi banerjee [facility] - [place] [facility], [address] 200 [facility] [place] [phone] 0 Phone: () - 05/06 Retic ulocy te count panel Immat ure retic ulocy te fract ion, % % 0.0 16.5 9.70 FINAL Deepthi banerjee [facility] - [place] [facility], [address] 200 [facility] [place] [phone] 0 Phone: () - 05/06 Retic ulocy te count panel Retic ulocy te cellu lar hemog lobin pg 28.0 37.0 33.0 FINAL Deepthi banerjee [facility], [address] [place] [address] 200 [facility] [place] [phone] 0 Phone: () - 05/06 CBC w/ auto diff WBC K/uL 3.0 8.9 8.4 FINAL Deepthi banerjee [facility], [address] [place] [address] 200 [facility] [place] [phone] 0 Phone: () - 05/06 CBC w/ auto diff HGB g/dL 11.3 15.2 13.6 FINAL Deepthi banerjee [facility]cology [facility], [address] [place] [address] 200 [facility] [place] [phone] 0 Phone: () - 05/06 CBC w/ auto diff PLT K/uL 113.0 364.0 266 FINAL Deepthi banerjee [facility]cology [facility], [address] [place] [address] 200 [facility] [place] [phone] 0 Phone: () - 05/06 CBC w/ auto diff Dawna # (ANC) K/uL 1.6 6.6 3.9 FINAL Deepthi banerjee [facility]cology [facility], [address] [place] [address] 200 [facility] [place] [phone] 0 Phone: () - 05/06 CBC w/ auto diff Dawna % % 43.0 74.0 46.7 FINAL Deepthi Clemens [place] [facility] [place], [address] [place] [address] 200 [place] [phone] 0 Phone: () - 05/06 CBC w/ auto diff IG % % 0.0 0.5 0.5 FINAL Deepthi banerjee [facility] - [place], [address] [place] [address] 200 [place] [phone] 0 Phone: () - 05/06 CBC w/ auto diff IG # K/uL 0.0 0.03 0.04 High FINAL Deepthi banerjee [facility] - [place], [address] [place] [address] 200 [place] [phone] 0 Phone: () - 05/06 CBC w/ auto diff LY % % 14.0 41.0 44.8 High FINAL Deepthi banerjee [facility] - [place] [facility], [address] [place] [address] 200 [place] [phone] 0 Phone: () - 05/06 CBC w/ auto diff MO % % 6.0 15.0 6.2 FINAL Deepthi banerjee [facility] - [place], [address] [place] [address] 200 [place] [phone] 0 Phone: () - 05/06 CBC w/ auto diff EO % % 0.0 7.0 1.4 FINAL Deepthi banerjee [facility] - [place], [address] [place] [address] 200 [place] [phone] 0 Phone: () - 05/06 CBC w/ auto diff BA % % 0.0 2.0 0.4 FINAL Deepthi banerjee [facility] - [place], [address] [place] [address] 200 [place] [phone] 0 Phone: () - 05/06 CBC w/ auto diff LY # K/uL 0.4 3.6 3.8 High FINAL Deepthi banerjee [facility] - [place] [facility], [address] [place] [address] 200 [place] [phone] 0 Phone: () - 05/06 CBC w/ auto diff MO # K/uL 0.2 1.3 0.5 FINAL Deepthi banerjee [facility] - [place], [address] [place] [address] 200 [place] [phone] 0 Phone: () - 05/06 CBC w/ auto diff EO # K/uL 0.0 0.6 0.1 FINAL Deepthi banerjee [facility] - [place] [facility], [address] [place] [address] 200 [place] [phone] 0 Phone: () - 05/06 CBC w/ auto diff BA # K/uL 0.0 0.2 0.0 FINAL Deepthi banerjee [facility] - [place] [facility], [address] [place] [address] 200 [place] [phone] 0 Phone: () - 05/06 CBC w/ auto diff NRBC % #/100W BC 0.0 0.2 0.0 FINAL Deepthi banerjee [facility] - [place] [facility], [address] [place] [address] 200 [place] [phone] 0 Phone: () - 05/06 CBC w/ auto diff RBC M/uL 3.9 5.1 4.57 FINAL Deepthi banerjee [facility] - [place] [facility], [address] [place] [address] 200 [place] [phone] 0 Phone: () - 05/06 CBC w/ auto diff HCT % 35.0 48.0 40.7 FINAL Deepthi banerjee [facility] - [place] [facility], [address] [place] [address] 200 [place] [phone] 0 Phone: () - 05/06 CBC w/ auto diff MCV fL 80.0 104.0 89.1 FINAL Deepthi banerjee [facility] - [place] [facility], [address] [place] [address] 200 [place] [phone] 0 Phone: () - 05/06 CBC w/ auto diff MCH pg 26.0 35.0 29.8 FINAL Deepthi banerjee [facility] - [place] [facility], [address] [place] [address] 200 [place] [phone] 0 Phone: () - 05/06 CBC w/ auto diff MCHC g/dL 30.0 35.0 33.4 FINAL Deepthi banerjee [facility] - [place] [facility], [address] [place] [address] 200 [place] [phone] 0 Phone: () - 05/06 CBC w/ auto diff MPV fL 9.5 13.4 9.3 Low FINAL Deepthi banerjee Oncology [facility], [address] [place] [address] 200 [facility] [phone] 0 Phone: () - 05/06 CBC w/ auto diff RDW % 11.4 16.1 13.60 FINAL Deepthi banerjee Oncology [facility], [address] 200 [facility] [phone] 0 Phone: () - Medications Date Name [...]
--- OUTSIDE RECORDS SUMMARY | 2025-03-02 10:13 | XMS_ITS ---
Author Name Interface, [id number] lity Address [address] [place] [address] [address] [place] [address] Organization [facility] Address [address] [facility] [address] [place] [address] Care Team Providers Care Design Engineering Manager Name Role Phone Bernabe Jang [place] Unavailable [...] - [facility], [address] [place] [id number] 0 Phone: () - 12/14 CBC w/ auto diff WBC K/uL 3.0 8.9 3.9 FINAL Mady banerjee [facility] - [facility], [address] 200 [facility] [place] [id number] 0 Phone: () - 12/14 CBC w/ auto diff HGB g/dL 11.3 15.2 9.3 Low FINAL Mady banerjee [facility] - [place], [address] [place] [id number] 0 Phone: () - 12/14 CBC w/ auto diff PLT K/uL 113.0 364.0 372 High FINAL Mady banerjee [facility] - [place], [address] [place] [address] 200 [facility] [place] [id number] 0 Phone: () - 12/14 CBC w/ auto diff Dawna # (ANC) K/uL 1.6 6.6 2.1 FINAL Mady banerjee [facility] - [place], [address] [place] [address] 200 [facility] [place] [id number] 0 Phone: () - 12/14 CBC w/ auto diff Dawna % % 43.0 74.0 54.9 FINAL Mady banerjee [facility] - [place], [address] [place] [address] 200 [facility] [place] [id number] 0 Phone: () - 12/14 CBC w/ auto diff IG % % 0.0 0.5 0.5 FINAL Mady banerjee [facility] - [place], [address] [place] [address] 200 [facility] [place] [id number] 0 Phone: () - 12/14 CBC w/ auto diff IG # K/uL 0.0 0.03 0.02 FINAL Mady banerjee [facility] - [place], [address] [place] [address] 200 [facility] [place] [id number] 0 Phone: () - 12/14 CBC w/ auto diff LY % % 14.0 41.0 26.2 FINAL Mady banerjee [facility] - [place], [address] [place] [address] 200 [place] [id number] 0 Phone: () - 12/14 CBC w/ auto diff MO % % 6.0 15.0 16.6 High FINAL Mady banerjee [facility] - [place], [address] [place] [address] 200 [facility] [place] [id number] 0 Phone: () - 12/14 CBC w/ auto diff EO % % 0.0 7.0 1.3 FINAL Mady banerjee [facility] - [place], [address] [place] [address] [address] [place] [id number] 0 Phone: () - 12/14 CBC w/ auto diff BA % % 0.0 2.0 0.5 FINAL Mady banerjee [facility] - [place], [address] [place] [address] [address] [place] [id number] 0 Phone: () - 12/14 CBC w/ auto diff LY # K/uL 0.4 3.6 1.0 FINAL Mady banerjee [facility] - [place], [address] [place] [address] [address] [place] [id number] 0 Phone: () - 12/14 CBC w/ auto diff MO # K/uL 0.2 1.3 0.6 FINAL Mady banerjee [facility] - [place], [address] [place] [address] [address] [place] [id number] 0 Phone: () - 12/14 CBC w/ auto diff EO # K/uL 0.0 0.6 0.1 FINAL Mady bnaerjee [facility]cology - [place], [address] [place] [address] [address] [place] [id number] 0 Phone: () - 12/14 CBC w/ auto diff BA # K/uL 0.0 0.2 0.0 FINAL Mady banerjee [facility] - [place], [address] [place] [address] [address] [place] [id number] 0 Phone: () - 12/14 CBC w/ auto diff NRBC % #/100W BC 0.0 0.2 0.0 FINAL Mady banerjee [facility] - [place], [address] [place] [address] [address] [place] [id number] 0 Phone: () - 12/14 CBC w/ auto diff HCT % 35.0 48.0 29.6 Low FINAL Mady banerjee [facility] - [place], [address] [place] [address] [address] [place] [id number] 0 Phone: () - 12/14 CBC w/ auto diff MCV fL 80.0 104.0 113.8 High FINAL Mady banerjee [facility] - [facility], [address] [place] [address] 200 [place] [id number] 0 Phone: () - 12/14 CBC w/ auto diff MCH pg 26.0 35.0 35.8 High FINAL Mady banerjee [facility] - [facility], [address] 200 [place] [id number] 0 Phone: () - 12/14 CBC w/ auto diff MCHC g/dL 30.0 35.0 31.4 FINAL Mady banerjee [facility]cology - [facility], [address] [place] [address] 200 [place] [id number] 0 Phone: () - 12/14 CBC w/ auto diff MPV fL 9.5 13.4 9.5 FINAL Mady banerjee [facility]cology - [facility], [address] [place] [address] 200 [place] [id number] 0 Phone: () - 12/14 CBC w/ auto diff RDW % 11.4 16.1 19.70 High FINAL Mady banerjee [facility] - [facility], [address] [place] [address] 200 [place] [id number] 0 Phone: () - 12/14 CBC w/ auto diff Auto CBC comme nts Slide review to follow FINAL Mady banerjee [facility] - [facility], [address] [place] [address] 200 [place] [id number] 0 Phone: () - 12/14 CBC w/ auto diff RBC M/uL 3.9 5.1 2.60 Low FINAL Mady banerjee [facility] - [facility], [address] [place] [address] 200 [place] [id number] 0 Phone: () - 12/28 CMP Album in g/dL 3.2 5.2 3.9 FINAL Idalia Eli a [facility] [address] [place] [id number] 0 Phone: () - 12/28 CMP Alkal ine phosp hatas e U/L 46.0 116.0 59 FINAL [facility] [address] [place] [id number] 0 Phone: () - 12/28 CMP ALT/S GPT U/L 7.0 40.0 13 FINAL Idalia Eli [address] [id number] 0 Phone: () - 12/28 CMP AST/S GOT U/L 13.0 40.0 19 FINAL Idalia banerjee [address] [id number] 0 Phone: () - 12/28 CMP BUN mg/dL 9.0 23.0 11 FINAL Idalia [address] [id number] 0 Phone: () - 12/28 CMP Calci um mg/dL 8.7 10.4 9.7 FINAL Idalia [address] [id number] 0 Phone: () - 12/28 CMP Chlor ray mmol/L 96.0 114.0 109 FINAL Idalia [address] [id number] 0 Phone: () - 12/28 CMP CO2 mmol/L 20.0 31.0 29 FINAL Idalia [address]ens[address] [id number] 0 Phone: () - 12/28 CMP Creat inine mg/dL 0.5 1.2 0.53 FINAL Idalia Clemens[address] [id number] 0 Phone: () - 12/28 CMP GFR estim ate ml/min /1.73m ^2 114.0 GFR is calculate d using the CKD-EPI equation. FINAL Idalia Clemens[address] [id number] 0 Phone: () - 12/28 CMP Gluco se mg/dL 73.0 126.0 117 FINAL Idalia Clemens[address] [id number] 0 Phone: () - 12/28 CMP Potas sium mmol/L 3.5 5.1 3.4 Low FINAL Idalia banerjee [address] [id number] 0 Phone: () - 12/28 CMP Sodiu m mmol/L 136.0 145.0 145 FINAL Idalia banerjee [facility], [address] [place] [address] 100 [facility] [id number] 0 Phone: () - 12/28 CMP Bilir ubin, total mg/dL 0.3 1.2 0.2 Low FINAL Idalia banerjee [address] 100 [facility] [id number] 0 Phone: () - 12/28 CMP Total prote in g/dL 5.7 8.2 5.6 Low FINAL Idalia banerjee [address] [id number] 0 Phone: () - 12/28 CBC w/ auto diff WBC K/uL 3.0 8.9 5.7 FINAL Idalia banerjee Oncology - [facility], [address] [place] [address] 200 [facility] [place] [id number] 0 Phone: () - 12/28 CBC w/ auto diff HGB g/dL 11.3 15.2 10.4 Low FINAL Idalia banerjee Oncology - [facility], [address] [place] [address] 200 [facility] [place] [id number] 0 Phone: () - 12/28 CBC w/ auto diff PLT K/uL 113.0 364.0 312 FINAL Idalia banerjee [facility] - [facility], [address] [place] [address] 200 [facility] [place] [id number] 0 Phone: () - 12/28 CBC w/ auto diff Dawna # (ANC) K/uL 1.6 6.6 4.1 FINAL [facility], [address] [place] [address] 200 [facility] [place] [id number] 0 Phone: () - 12/28 CBC w/ auto diff Dwana % % 43.0 74.0 72.5 FINAL Idalia banerjee [facility]cology - [facility], [address] [place] [address] 200 [place] [id number] 0 Phone: () - 12/28 CBC w/ auto diff IG % % 0.0 0.5 0.4 FINAL Idalia banerjee [facility] - [place], [address] 200 [facility] [id number] 0 Phone: () - 12/28 CBC w/ auto diff IG # K/uL 0.0 0.03 0.02 FINAL Idalia banerjee [facility] - [place], [address] 200 [facility] [id number] 0 Phone: () - 12/28 CBC w/ auto diff LY % % 14.0 41.0 14.4 FINAL Idalia banerjee [facility] - [place], [address] [place] [address] 200 [facility] [id number] 0 Phone: () - 12/28 CBC w/ auto diff MO % % 6.0 15.0 9.6 FINAL Idalia banerjee [facility] - [place], [address] [place] [address] 200 [facility] [id number] 0 Phone: () - 12/28 CBC w/ auto diff EO % % 0.0 7.0 2.6 FINAL Idalia banerjee [facility] - [place], [address] [place] [address] 200 [facility] [id number] 0 Phone: () - 12/28 CBC w/ auto diff BA % % 0.0 2.0 0.5 FINAL Idalia banerjee [facility] - [place], [address] [place] [address] 200 [facility] [id number] 0 Phone: () - 12/28 CBC w/ auto diff LY # K/uL 0.4 3.6 0.8 FINAL Idalia banerjee [facility] - [place], [address] [place] [address] 200 [facility] [id number] 0 Phone: () - 12/28 CBC w/ auto diff MO # K/uL 0.2 1.3 0.6 FINAL Idalia banerjee [facility] - [place], [address] [place] [address] 200 [facility] [id number] 0 Phone: () - 12/28 CBC w/ auto diff EO # K/uL 0.0 0.6 0.2 FINAL Idalia banerjee [facility] - [place], [address] [place] [address] [address] [place] [id number] 0 Phone: () - 12/28 CBC w/ auto diff BA # K/uL 0.0 0.2 0.0 FINAL Idalia banerjee [facility] - [place], [address] [place] [address] [address] [place] [id number] 0 Phone: () - 12/28 CBC w/ auto diff NRBC % #/100W BC 0.0 0.2 0.0 FINAL Idalia banerjee [facility] - [place], [address] [place] [address] [address] [place] [id number] 0 Phone: () - 12/28 CBC w/ auto diff RBC M/uL 3.9 5.1 2.97 Low FINAL Idalia banerjee [facility] - [place], [address] [place] [address] [address] [place] [id number] 0 Phone: () - 12/28 CBC w/ auto diff HCT % 35.0 48.0 32.3 Low FINAL Idalia banerjee [facility] - [place], [address] [place] [address] [address] [place] [id number] 0 Phone: () - 12/28 CBC w/ auto diff MCV fL 80.0 104.0 108.8 High FINAL Idalia banerjee [facility] - [place], [address] [place] [address] [address] [place] [id number] 0 Phone: () - 12/28 CBC w/ auto diff MCH pg 26.0 35.0 35.0 FINAL Idalia banerjee [facility] - [place], [address] [place] [address] [address] [place] [id number] 0 Phone: () - 12/28 CBC w/ auto diff MCHC g/dL 30.0 35.0 32.2 FINAL Idalia banerjee [facility] - [place], [address] [place] [address] [address] [place] [id number] 0 Phone: () - 12/28 CBC w/ auto diff MPV fL 9.5 13.4 9.9 FINAL Idalia banerjee [facility] - [place], [address] [place] [address] [address] [place] [id number] 0 Phone: () - 12/28 CBC w/ auto diff RDW % 11.4 16.1 15.20 FINAL Idalia banerjee [facility] - [place], [address] [place] [address] [address] [place] [id number] 0 Phone: () - 12/28 iSTAT creat inine panel Creat inine , iSTAT mg/dl 0.6 1.3 0.5 Low FINAL Idalia banerjee [facility] - [place], [address] [place] [address] [address] [place] [id number] 0 Phone: () - 12/28 iSTAT creat inine panel GFR estim ate ml/min /1.73m ^2 116.2 GFR is calculate d using the CKD-EPI equation. FINAL Idalia banerjee [facility] - [place], [address] [place] [address] [address] [place] [id number] 0 Phone: () - 05/01 CBC w/ auto diff PLT K/uL 113.0 364.0 257 FINAL Asim banerjee [facility] - [place], [address] [place] [address] [address] [place] [id number] 0 Phone: () - 05/01 CBC w/ auto diff Dawna # (ANC) K/uL 1.6 6.6 2.2 FINAL Asim banerjee [facility] - [place], [address] [place] [address] [address] [place] [id number] 0 Phone: () - 05/01 CBC w/ auto diff Dawna % % 43.0 74.0 46.0 FINAL Asim banerjee [facility] - [place], [address] [place] [address] [address] [place] [id number] 0 Phone: () - 05/01 CBC w/ auto diff IG % % 0.0 0.5 0.4 FINAL Asim banerjee [facility] - [place], [address] [place] [address] [address] [place] [id number] 0 Phone: () - 05/01 CBC w/ auto diff IG # K/uL 0.0 0.03 0.02 FINAL Asim banerjee [facility] - [place], [address] [place] [address] [address] [place] [id number] 0 Phone: () - 05/01 CBC w/ auto diff LY % % 14.0 41.0 38.7 FINAL Asim banerjee [facility] - [place], [address] [place] [address] [address] [place] [id number] 0 Phone: () - 05/01 CBC w/ auto diff MO % % 6.0 15.0 10.0 FINAL Asim banerjee [facility] - [place], [address] [place] [address] [address] [place] [id number] 0 Phone: () - 05/01 CBC w/ auto diff EO % % 0.0 7.0 4.3 FINAL Asim banerjee [facility] - [place], [address] [place] [address] [address] [place] [id number] 0 Phone: () - 05/01 CBC w/ auto diff BA % % 0.0 2.0 0.6 FINAL Asim banerjee [facility] - [place], [address] [place] [address] [address] [place] [id number] 0 Phone: () - 05/01 CBC w/ auto diff LY # K/uL 0.4 3.6 1.9 FINAL Asim banerjee [facility] - [place], [address] [place] [address] [address] [place] [id number] 0 Phone: () - 05/01 CBC w/ auto diff MO # K/uL 0.2 1.3 0.5 FINAL Asim banerjee [facility] - [place], [address] [place] [address] [address] [place] [id number] 0 Phone: () - 05/01 CBC w/ auto diff EO # K/uL 0.0 0.6 0.2 FINAL Asim banerjee [facility] - [place], [address] [place] [address] [address] [place] [id number] 0 Phone: () - 05/01 CBC w/ auto diff BA # K/uL 0.0 0.2 0.0 FINAL Asim Eli a [facility] - [place], [address] [place] [address] [address] [place] [id number] 0 Phone: () - 05/01 CBC w/ auto diff NRBC % #/100W BC 0.0 0.2 0.0 FINAL Asim banerjee [facility] - [place], [address] [place] [address] 200 [place] [id number] 0 Phone: () - 05/01 CBC w/ auto diff RBC M/uL 3.9 5.1 4.01 FINAL Asim banerjee [facility] - [place], [address] [place] [address] 200 [place] [id number] 0 Phone: () - 05/01 CBC w/ auto diff HCT % 35.0 48.0 36.8 FINAL Asim banerjee [facility]cology - [facility], [address] [place] [id number] 0 Phone: () - 05/01 CBC w/ auto diff MCV fL 80.0 104.0 91.8 FINAL Asim banerjee [facility] - [place], [address] [place] [address] 200 [place] [id number] 0 Phone: () - 05/01 CBC w/ auto diff MCH pg 26.0 35.0 31.2 FINAL Asim banerjee [facility] - [place], [address] [place] [address] 200 [place] [id number] 0 Phone: () - 05/01 CBC w/ auto diff MCHC g/dL 30.0 35.0 34.0 FINAL Asim banerjee [facility] - [place], [address] [place] [address] 200 [place] [id number] 0 Phone: () - 05/01 CBC w/ auto diff MPV fL 9.5 13.4 9.1 Low FINAL Asim banerjee [facility] - [facility], [address] [place] [address] 200 [place] [id number] 0 Phone: () - 05/01 CBC w/ auto diff RDW % 11.4 16.1 13.90 FINAL Asim banerjee [facility] - [place], [address] [place] [address] 200 [place] [id number] 0 Phone: () - 05/01 CBC w/ auto diff Auto CBC comme nts Slide review to follow FINAL Asim banerjee [facility] - [facility], [address] [place] [address] [address] [place] [id number] 0 Phone: () - 05/01 CBC w/ auto diff WBC K/uL 3.0 8.9 4.9 FINAL Asim banerjee [facility] - [facility], [address] [place] [address] [address] [place] [id number] 0 Phone: () - 05/01 CBC w/ auto diff HGB g/dL 11.3 15.2 12.5 FINAL Asim banerjee [facility] - [facility], [address] [place] [address] [address] [place] [id number] 0 Phone: () - 05/01 Smear revie w panel CBC Smear revie w comme nts Large and-or giant platele ts present Atypica l (Reacti ve and/or Variant ) Lymphs present Abnor mal FINAL Asim banerjee [facility] - [facility], [address] [place] [address] [address] [place] [id number] 0 Phone: () - 05/01 Retic ulocy te count panel Retic ulocy te, absol [place] M/uL 0.02 0.08 0.08 FINAL Asim banerjee [facility] - [facility], [address] [place] [address] [address] [place] [id number] 0 Phone: () - 05/01 Retic ulocy te count panel Retic ulocy te count % 0.4 1.6 2.07 High FINAL Asim banerjee [facility] - [facility], [address] [place] [address] [address] [place] [id number] 0 Phone: () - 05/01 Retic ulocy te count panel Immat ure retic ulocy te fract ion, % % 0.0 16.5 10.10 FINAL Asim banerjee [facility] - [facility], [address] [place] [address] [address] [place] [id number] 0 Phone: () - 05/01 Retic ulocy te count panel Retic ulocy te cellu lar hemog lobin pg 28.0 37.0 36.5 FINAL Asim banerjee [facility] - [facility], [address] [place] [address] [address] [place] [id number] 0 Phone: () - 05/01 Path perip heral blood slide revie w panel Patho logy/ Cytol ogy Morph ology SEE RESULTS BELOW CASE REPORTSpe cial Hematolog y Report Case: [id number] 6Authoriz ing Provider: Asim Cornelius MD Collected [...] iagnosed by left neck lymph node biopsy ([id number] , 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 Staging bonemarro w biopsy [...] specimens .ADDITION AL INFORMATI ONInterpr eted at [facility] [address], [facility] [place], [place] [address]Hkyk Performed by:[facility] - [facility] [place], [place] [address]Ldwm e [phone] FINAL Asim Cornelius 05/01 CMP Album in g/dL 3.2 5.2 4.4 FINAL Asim [address] [place] [id number] 0 Phone: () - 05/01 CMP Alkal ine phosp hatas e U/L 46.0 116.0 76 FINAL Asim Clemens a [address] [place] [id number] 0 Phone: () - 05/01 CMP ALT/S GPT U/L 7.0 40.0 12 FINAL Asim Clemensot a [address] [place] [id number] 0 Phone: () - 05/01 CMP AST/S GOT U/L 13.0 40.0 16 FINAL Asim Clemensot a [address] [place] [id number] 0 Phone: () - 05/01 CMP BUN mg/dL 9.0 23.0 19 FINAL Asim Clemensot a [address] [place] [id number] 0 Phone: () - 05/01 CMP Calci um mg/dL 8.7 [address] [id number] 0 Phone: () - 05/01 CMP Chlor ray mmol/L 96.0 114.[address] [id number] 0 Phone: () - 05/01 CMP CO2 mmol/L 20.0 31.[address] [id number] 0 Phone: () - 05/01 CMP Creat inine mg/dL 0.5 [address] [id number] 0 Phone: () - 05/01 CMP GFR estim ate ml/min /1.73m ^2 97.0 GFR is calculate d using the CKD-EPI equation. [address] [id number] 0 Phone: () - 05/01 CMP Gluco se mg/dL 73.0 126.0 [address] [id number] 0 Phone: () - 05/01 CMP Potas sium mmol/L 3.5 [address] [id number] 0 Phone: () - 05/01 CMP Sodiu m mmol/L 136.0 145.[address] [id number] 0 Phone: () - 05/01 CMP Bilir ubin, total mg/dL 0.3 1.2 0.[address] [id number] 0 Phone: () - 05/01 CMP Total prote in g/dL 5.7 8.2 6.1 FINAL Asim Eli a [facility] - [place], [address] [facility] [address] [place] [id number] 0 Phone: () - 06/19 Retic ulocy te count panel Retic ulocy te, absol [place] M/uL 0.02 0.08 0.08 FINAL Asim banerjee [facility] - [facility], [address] [place] [address] [address] [place] [id number] 0 Phone: () - 06/19 Retic ulocy te count panel Retic ulocy te count % 0.4 1.6 1.75 High FINAL Asim banerjee [facility] - [facility], [address] [place] [address] [address] [place] [id number] 0 Phone: () - 06/19 Retic ulocy te count panel Immat ure retic ulocy te fract ion, % % 0.0 16.5 10.80 FINAL Asim banerjee [facility] - [facility], [address] [place] [address] [address] [place] [id number] 0 Phone: () - 06/19 Retic ulocy te count panel Retic ulocy te cellu lar hemog lobin pg 28.0 37.0 34.6 FINAL Asim banerjee [facility] - [facility], [address] [place] [address] [address] [place] [id number] 0 Phone: () - 06/19 CBC w/ auto diff WBC K/uL 3.0 8.9 8.7 FINAL Asim banerjee [facility] - [facility], [address] [place] [address] [address] [place] [id number] 0 Phone: () - 06/19 CBC w/ auto diff HGB g/dL 11.3 15.2 14.2 FINAL Asim banerjee [facility] - [facility], [address] [place] [address] [address] [place] [id number] 0 Phone: () - 06/19 CBC w/ auto diff PLT K/uL 113.0 364.0 282 FINAL Asim banerjee [facility] - [facility], [address] [place] [address] [address] [place] [id number] 0 Phone: () - 06/19 CBC w/ auto diff Dawna # (ANC) K/uL 1.6 6.6 4.9 FINAL Asim Clemensot a [facility] - [place], [address] [place] [address] [address] [place] [id number] 0 Phone: () - 06/19 CBC w/ auto diff Dawna % % 43.0 74.0 56.8 FINAL Asimmatt Clemensot a [facility] - [place], [address] [place] [address] [address] [place] [id number] 0 Phone: () - 06/19 CBC w/ auto diff IG % % 0.0 0.5 0.5 FINAL Asimmatt Clemensot a [facility] - [place], [address] [place] [address] [address] [place] [id number] 0 Phone: () - 06/19 CBC w/ auto diff IG # K/uL 0.0 0.03 0.04 High FINAL Asim Clemensot a [facility] - [place], [address] [place] [address] [address] [place] [id number] 0 Phone: () - 06/19 CBC w/ auto diff LY % % 14.0 41.0 33.4 FINAL Asim Clemensot a [facility] - [place], [address] [place] [address] [address] [place] [id number] 0 Phone: () - 06/19 CBC w/ auto diff MO % % 6.0 15.0 7.0 FINAL Asim Clemensot a [facility] - [place], [address] [place] [address] [address] [place] [id number] 0 Phone: () - 06/19 CBC w/ auto diff EO % % 0.0 7.0 1.8 FINAL Asimmatt Clemensot a [facility] - [place], [address] [place] [address] [address] [place] [id number] 0 Phone: () - 06/19 CBC w/ auto diff BA % % 0.0 2.0 0.5 FINAL Asimmatt Clemensot a [facility] - [place], [address] [place] [address] [address] [place] [id number] 0 Phone: () - 06/19 CBC w/ auto diff LY # K/uL 0.4 3.6 2.9 FINAL Asimmatt Cornelius [place] [facility] [place], [address] [place] [address] [address] [place] [id number] 0 Phone: () - 06/19 CBC w/ auto diff MO # K/uL 0.2 1.3 0.6 FINAL Asim banerjee [facility] - [place], [address] [place] [address] [address] [place] [id number] 0 Phone: () - 06/19 CBC w/ auto diff EO # K/uL 0.0 0.6 0.2 FINAL Asim banerjee [facility] - [place], [address] [place] [address] [address] [place] [id number] 0 Phone: () - 06/19 CBC w/ auto diff BA # K/uL 0.0 0.2 0.0 FINAL Asim banerjee [facility] - [place], [address] [place] [address] [address] [place] [id number] 0 Phone: () - 06/19 CBC w/ auto diff NRBC % #/100W BC 0.0 0.2 0.0 FINAL Asim banerjee [facility] - [place], [address] [place] [address] [address] [place] [id number] 0 Phone: () - 06/19 CBC w/ auto diff RBC M/uL 3.9 5.1 4.67 FINAL Asim banerjee [facility] - [place] [facility], [address] [place] [address] [address] [place] [id number] Phone: () - 06/19 CBC w/ auto diff HCT % 35.0 48.0 41.7 FINAL [facility] [place] [facility], [address] [place] [address] [address] [place] [id number] Phone: () - 06/19 CBC w/ auto diff MCV fL 80.0 104.0 89.3 FINAL [facility] [place] [facility], [address] [place] [address] [address] [place] [id number] 0 Phone: () - 06/19 CBC w/ auto diff MCH pg 26.0 35.0 30.4 FINAL [facility] [place] [facility], [address] [place] [address] [address] [place] [id number] 0 Phone: () - 06/19 CBC w/ auto diff MCHC g/dL 30.0 35.0 34.1 FINAL [facility], [address] [place] [address] [address] [place] [id number] 0 Phone: () - 06/19 CBC w/ auto diff MPV fL 9.5 13.4 8.8 Low FINAL [facility], [address] [place] [address] [address] [place] [id number] Phone: () - 06/19 CBC w/ auto diff RDW % 11.4 16.1 13.10 FINAL [facility], [address] [place] [address] [address] [place] [id number] 0 Phone: () - 06/19 LDH panel LDH U/L 120.0 246.0 246 FINAL [facility], [address] [place] [address] [phone] Phone: () - 06/19 CMP Album in g/dL 3.2 5.2 4.6 FINAL Asim banerjee [facility], [address] [facility] [phone] Phone: () - 06/19 CMP Alkal ine phosp hatas e U/L 46.0 116.0 91 FINAL Asim banerjee [facility], [address] [facility] [phone] 0 Phone: () - 06/19 CMP ALT/S GPT U/L 7.0 40.0 27 FINAL Asim Clemens a [facility], [address] [facility] [id number] 0 Phone: () - 06/19 CMP AST/S GOT U/L 13.0 40.0 34 FINAL Asim banerjee [facility], [address] [facility] [phone] Phone: () - 06/19 CMP BUN mg/dL 9.0 23.0 11 FINAL Asim Cornelius [facility], [address] [facility] 100 [facility] [phone] Phone: () - 06/19 CMP Calci um mg/dL 8.7 10.4 9.4 [facility], [address] [facility] 100 [facility] [phone] 0 Phone: () - 06/19 CMP Chlor ray mmol/L 96.0 114.0 107 [facility] Asim Cornelius [place] [address] [facility] 100 [facility] [phone] Phone: () - 06/19 CMP CO2 [...] stability window. [facility] Asim Cornelius [facility], [facility] [address] [phone] 0 Phone: () - 06/19 CMP Creat inine mg/dL 0.5 1.2 0.68 [facility] Cornelius [place] [address] [phone] 0 Phone: () - 06/19 CMP GFR estim ate ml/min /1.73m ^2 103.9 GFR is calculate d using the CKD-EPI equation. [facility] Asim Cornelius [facility], [facility] N [address] [phone] 0 Phone: () - 06/19 CMP Gluco se mg/dL 73.0 126.0 95 [facility] [place] [address] [facility] 100 [facility] [phone] Phone: () - 06/19 CMP Potas sium mmol/L 3.5 5.1 4.1 [facility] [place] [address] [phone] 0 Phone: () - 06/19 CMP Sodiu m mmol/L 136.0 145.0 140 FINAL Asim [facility]ot [facility] [place], [address] [facility] [phone] Phone: () - 06/19 CMP Bilir ubin, total mg/dL 0.3 1.2 0.2 Low FINAL Asim [facility]ius [place] [facility], [address] [facility] [phone] Phone: () - 06/19 CMP Total prote in g/dL 5.7 8.2 6.9 FINAL Asim Clemensot [facility] [place], [address] [facility] [phone] Phone: () - 06/19 Path perip heral blood slide revie w panel Patho logy/ Cytol ogy Morph ology SEE RESULTS BELOW CASE REPORTSpe cial Hematolog y Report Case: [id number] ing Provider: Asim Cornelius MD Collected :06/19/20 21 1340Order ing Location: [facility] Received: 1 1734Patho logist: Elvie Hernández MDSpecime n: BloodFINA L DIAGNOSIS PERIPHERA L BLOOD:1. Negative for circulati ng blasts2. Within normal limitsEle ctronical ly signed by Elvie Hernández MD on 06/20/2021 at 1:03 PMCOMMENT This case was also reviewed by Mis hill [place], [place] ([facility]CL INICAL INFORMATI ONThe patient is a 46-year-o ld female with a history of acute lymphoid leukemia. 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 Staging bone marrow biopsy was negative forlympho ma ([id number]) . Her most recent periphera l blood morpholog y 2019 ([id number] ,05/01/2020 ) was negative for circulati ng [...] blood smear.ADD ITIONAL INFORMATI ONInterpr eted at [facility] - [address], [place], [place] [address]Fnqy Performed by:[facility] - [facility] [place], [place] [address]Mftc e : FINAL Asim Cornelius 01/19 [facility] other lab See lock technician d 05/01 [facility] other lab See lock technician d 05/06 LDH panel LDH U/L 120.0 246.0 191 FINAL Deepthi Clemensot [facility] [place], [address] [facility] [phone] Phone: () - 05/06 CMP Album in g/dL 3.2 5.2 4.7 FINAL [facility], [address] [facility] [address] [phone] 0 Phone: () - 05/06 CMP Alkal ine phosp hatas e U/L 46.0 116.0 73 FINAL Deepthi Dodge [place] [address] [address] [facility] [address] [phone] Phone: () - 05/06 CMP ALT/S GPT U/L 7.0 40.0 19 FINAL Deepthi Dodge [place] [address] [address] [facility] [address] [phone] 0 Phone: () - 05/06 CMP AST/S GOT U/L 13.0 40.0 21 FINAL Deep[place] [address] [address] [facility] [address] [phone] 0 Phone: () - 05/06 CMP BUN mg/dL 9.0 23.0 16.0 FINAL Deepthi Dodge [facility] [address] [facility] [address] [phone] Phone: () - 05/06 CMP Calci um mg/dL 8.7 10.4 9.8 FINAL Deepthi Dodge [place] [address] [address] [facility] [address] [phone] Phone: () - 05/06 CMP Chlor ray mmol/L 96.0 114.0 107 FINAL Deepthi Dodge [facility] [address] [facility] [address] [phone] Phone: () - 05/06 CMP CO2 [...] 96 hour stability window. FINAL Deepthi Dodge [place] [address] [phone] 0 Phone: () - 05/06 CMP Creat inine mg/dL 0.5 1.2 0.80 FINAL Deepthi Clemens [place] [address] [phone] 0 Phone: () - 05/06 CMP GFR estim ate ml/min /1.73m ^2 90.1 GFR is calculate d using the CKD-EPI equation. FINAL Deep[place] [address] [phone] 0 Phone: () - 05/06 CMP Gluco se mg/dL 73.0 126.0 128 High FINAL Deep[place] [address] [phone] 0 Phone: () - 05/06 CMP Potas sium mmol/L 3.5 5.1 3.9 FINAL Deep[place] [address] [phone] Phone: () - 05/06 CMP Sodiu m mmol/L 136.0 145.0 142 FINAL Deepthi Clemens [place] [address] [phone] 0 Phone: () - 05/06 CMP Bilir ubin, total mg/dL 0.3 1.2 0.2 Low FINAL Deep[place] [address] [phone] 0 Phone: () - 05/06 CMP Total prote in g/dL 5.7 8.2 7.1 FINAL Deepthi Dodge [place] [address] [phone] 0 Phone: () - 05/06 Retic ulocy te count panel Retic ulocy te, absol [place] M/uL 0.02 0.08 0.07 FINAL [facility], [address] [facility] [phone] 0 Phone: () - 05/06 Retic ulocy te count panel Retic ulocy te count % 0.4 1.6 1.60 FINAL Deepthi banerjee [facility], [address] 200 [facility] [place] [phone] 0 Phone: () - 05/06 Retic ulocy te count panel Immat ure retic ulocy te fract ion, % % 0.0 16.5 9.70 FINAL Deepthi banerjee [facility], [address] 200 [facility] [place] [phone] 0 Phone: () - 05/06 Retic ulocy te count panel Retic ulocy te cellu lar hemog lobin pg 28.0 37.0 33.0 FINAL Deepthi banerjee [facility], [address] [place] [address] 200 [facility] [place] [phone] 0 Phone: () - 05/06 CBC w/ auto diff WBC K/uL 3.0 8.9 8.4 FINAL Deepthi banerjee [facility], [address] [place] [address] 200 [facility] [place] [phone] 0 Phone: () - 05/06 CBC w/ auto diff HGB g/dL 11.3 15.2 13.6 FINAL Deepthi banerjee [facility], [address] [place] [address] 200 [facility] [place] [phone] 0 Phone: () - 05/06 CBC w/ auto diff PLT K/uL 113.0 364.0 266 FINAL Deepthi banerjee [facility], [address] [place] [address] 200 [facility] [place] [phone] 0 Phone: () - 05/06 CBC w/ auto diff Dawna # (ANC) K/uL 1.6 6.6 3.9 FINAL Deepthi banerjee [facility], [address] [place] [address] 200 [facility] [place] [phone] 0 Phone: () - 05/06 CBC w/ auto diff Dawna % % 43.0 74.0 46.7 FINAL Deepthi Clemens [place] [facility] [place], [address] [place] [address] 200 [place] [phone] 0 Phone: () - 05/06 CBC w/ auto diff IG % % 0.0 0.5 0.5 FINAL Deepthi banerjee [facility] [place], [address] [place] [address] 200 [place] [phone] 0 Phone: () - 05/06 CBC w/ auto diff IG # K/uL 0.0 0.03 0.04 High FINAL Deepthi banerjee [facility] [place], [address] [place] [address] 200 [place] [phone] 0 Phone: () - 05/06 CBC w/ auto diff LY % % 14.0 41.0 44.8 High FINAL Deepthi banerjee [facility] - [facility], [address] [place] [address] 200 [place] [phone] 0 Phone: () - 05/06 CBC w/ auto diff MO % % 6.0 15.0 6.2 FINAL Deepthi banerjee [facility] [place], [address] [place] [address] 200 [place] [phone] 0 Phone: () - 05/06 CBC w/ auto diff EO % % 0.0 7.0 1.4 FINAL Deepthi banerjee [facility] [place], [address] [place] [address] 200 [place] [phone] 0 Phone: () - 05/06 CBC w/ auto diff BA % % 0.0 2.0 0.4 FINAL Deepthi banerjee [facility] [place], [address] [place] [address] 200 [place] [phone] 0 Phone: () - 05/06 CBC w/ auto diff LY # K/uL 0.4 3.6 3.8 High FINAL Deepthi banerjee [facility] - [facility], [address] [place] [address] 200 [place] [phone] 0 Phone: () - 05/06 CBC w/ auto diff MO # K/uL 0.2 1.3 0.5 FINAL Deepthi banerjee [facility] [place], [address] [place] [address] 200 [place] [phone] 0 Phone: () - 05/06 CBC w/ auto diff EO # K/uL 0.0 0.6 0.1 FINAL Deepthi banerjee [facility], [address] [place] [address] 200 [place] [phone] 0 Phone: () - 05/06 CBC w/ auto diff BA # K/uL 0.0 0.2 0.0 FINAL Deepthi banerjee [facility] - [facility], [address] [place] [address] 200 [place] [phone] 0 Phone: () - 05/06 CBC w/ auto diff NRBC % #/100W BC 0.0 0.2 0.0 FINAL Deepthi banerjee [facility] - [facility], [address] [place] [address] 200 [place] [phone] 0 Phone: () - 05/06 CBC w/ auto diff RBC M/uL 3.9 5.1 4.57 FINAL Deepthi banerjee [facility] - [facility], [address] [place] [address] 200 [place] [phone] 0 Phone: () - 05/06 CBC w/ auto diff HCT % 35.0 48.0 40.7 FINAL Deepthi banerjee [facility] - [facility], [address] [place] [address] 200 [place] [phone] 0 Phone: () - 05/06 CBC w/ auto diff MCV fL 80.0 104.0 89.1 FINAL Deepthi banerjee [facility] - [facility], [address] [place] [address] 200 [place] [phone] 0 Phone: () - 05/06 CBC w/ auto diff MCH pg 26.0 35.0 29.8 FINAL Deepthi banerjee [facility] - [facility], [address] [place] [address] 200 [place] [phone] 0 Phone: () - 05/06 CBC w/ auto diff MCHC g/dL 30.0 35.0 33.4 FINAL Deepthi banerjee [facility], [address] [place] [address] 200 [place] [phone] 0 Phone: () - 05/06 CBC w/ auto diff MPV fL 9.5 13.4 9.3 Low FINAL Deepthi banerjee [facility], [address] [place] [address] 200 [facility] [phone] 0 Phone: () - 05/06 CBC w/ auto diff RDW % 11.4 16.1 13.60 FINAL Deepthi banerjee [facility], [address] 200 [facility] [phone] 0 Phone: () - Medications Date Name [...]
--- OUTSIDE RECORDS SUMMARY | 2025-03-02 10:13 | XMS_ITS ---
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 Name Role Phone Aliza Gan Unavailable Unavailable [...] U/L 120.0 246.0 246 FINAL Asim Cornelius [facility] - [place], [address] [facility] [phone] Phone: () - 06/19 Path perip heral blood slide revie w panel Patho logy/ Cytol ogy Morph ology SEE RESULTS BELOW CASE REPORTSpe cial Hematolog y Report Case: [id number] ing Provider: Asim Cornelius MD Collected :06/19/20 21 1340Order ing Location: [facility] Received: 1 1734Patho logist: Elvie Hernández MDSpecime n: BloodFINA L DIAGNOSIS PERIPHERA L BLOOD:1. Negative for circulati ng blasts2. Within normal limitsEle ctronical ly signed by Elvie Heránndez MD on 06/20/2021 at 1:03 PMCOMMENT This case was also reviewed by Mis hill MT, MS (ASCP).CL INICAL INFORMATI ONThe patient is a 46-year-o ld female with a history of acute lymphoid leukemia. 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 Staging bone marrow biopsy was negative forlympho ma ([id number]) . Her most recent periphera l blood morpholog y 2019 ([id number] ,05/01/2020 ) was negative for circulati ng [...] blood smear.ADD ITIONAL INFORMATI ONInterpr eted at [employer], [facility] - [address], [place], [place] [address]Plcg Performed by:[facility] - [place], [place] [address]Yxgr e : FINAL Asim Cornelius 06/19 CBC w/ auto diff WBC K/uL 3.0 8.9 8.7 FINAL Asim Clemensot a Oncology - [facility], [address] [place] [id number] 0 Phone: () - 06/19 CBC w/ auto diff HGB g/dL 11.3 15.2 14.2 FINAL Asim Clemensot a Oncology - [facility], [address] [place] [id number] 0 Phone: () - 06/19 CBC w/ auto diff PLT K/uL 113.0 364.0 282 FINAL Asim Clemensot a Oncology - [facility], [address] [place] [id number] 0 Phone: () - 06/19 CBC w/ auto diff Dawna # (ANC) K/uL 1.6 6.6 4.9 FINAL Asim Eli a [facility] - [place], [address] [place] [address] [address] [place] [id number] 0 Phone: () - 06/19 CBC w/ auto diff Dawna % % 43.0 74.0 56.8 FINAL Asim Eli a [facility] - [place], [address] [place] [address] [address] [place] [id number] 0 Phone: () - 06/19 CBC w/ auto diff IG % % 0.0 0.5 0.5 FINAL Asim Eli a [facility] - [place], [address] [place] [address] [address] [place] [id number] 0 Phone: () - 06/19 CBC w/ auto diff IG # K/uL 0.0 0.03 0.04 High FINAL Asim Eli a [facility] - [place], [address] [place] [address] [address] [place] [id number] 0 Phone: () - 06/19 CBC w/ auto diff LY % % 14.0 41.0 33.4 FINAL Asim Eli a [facility] - [place], [address] [place] [address] [address] [place] [id number] 0 Phone: () - 06/19 CBC w/ auto diff MO % % 6.0 15.0 7.0 FINAL Asim Eli a [facility] - [place], [address] [place] [address] [address] [place] [id number] 0 Phone: () - 06/19 CBC w/ auto diff EO % % 0.0 7.0 1.8 FINAL Asim Eli a [facility] - [place], [address] [place] [address] [address] [place] [id number] 0 Phone: () - 06/19 CBC w/ auto diff BA % % 0.0 2.0 0.5 FINAL Asim Eli a [facility] - [place], [address] [place] [address] [address] [place] [id number] 0 Phone: () - 06/19 CBC w/ auto diff LY # K/uL 0.4 3.6 2.9 FINAL Aism Eli a [facility] - [place], [address] [place] [id number] 0 Phone: () - 06/19 CBC w/ auto diff MO # K/uL 0.2 1.3 0.6 FINAL Asim banerjee [facility] - [place], [address] [place] [id number] 0 Phone: () - 06/19 CBC w/ auto diff EO # K/uL 0.0 0.6 0.2 FINAL Asim banerjee [facility] - [place], [address] [place] [id number] 0 Phone: () - 06/19 CBC w/ auto diff BA # K/uL 0.0 0.2 0.0 FINAL Asim banerjee [facility] - [place], [address] [place] [id number] 0 Phone: () - 06/19 CBC w/ auto diff NRBC % #/100W BC 0.0 0.2 0.0 FINAL Asim banerjee [facility] - [place], [address] [place] [id number] 0 Phone: () - 06/19 CBC w/ auto diff RBC M/uL 3.9 5.1 4.67 FINAL Asim banerjee [facility] - [place], [address] [place] [id number] 0 Phone: () - 06/19 CBC w/ auto diff HCT % 35.0 48.0 41.7 FINAL Asim banerjee [facility] - [place], [address] [place] [id number] 0 Phone: () - 06/19 CBC w/ auto diff MCV fL 80.0 104.0 89.3 FINAL Asim banerjee [facility] - [place], [address] [place] [address] [address] [place] [id number] 0 Phone: () - 06/19 CBC w/ auto diff MCH pg 26.0 35.0 30.4 FINAL Asim banerjee [facility] - [place], [address] [place] [id number] 0 Phone: () - 06/19 CBC w/ auto diff MCHC g/dL 30.0 35.0 34.1 FINAL Asim banerjee [facility] - [place] [facility], [address] [place] [id number] 0 Phone: () - 06/19 CBC w/ auto diff MPV fL 9.5 13.4 8.8 Low FINAL Asim banerjee [facility] - [place] [facility], [address] [place] [id number] 0 Phone: () - 06/19 CBC w/ auto diff RDW % 11.4 16.1 13.10 FINAL Asim banerjee [facility] - [place] [facility], [address] [place] [address] [address] [place] [id number] 0 Phone: () - 06/19 Retic ulocy te count panel Retic ulocy te, absol tuluksak M/uL 0.02 0.08 0.08 FINAL Asim banerjee [facility] - [place] [facility], [address] [place] [id number] 0 Phone: () - 06/19 Retic ulocy te count panel Retic ulocy te count % 0.4 1.6 1.75 High FINAL Asim banerjee [facility] - [place] [facility], [address] [place] [address] [address] [place] [id number] 0 Phone: () - 06/19 Retic ulocy te count panel Immat ure retic ulocy te fract ion, % % 0.0 16.5 10.80 FINAL Asim banerjee [facility] - [place] [facility], [address] [place] [id number] 0 Phone: () - 06/19 Retic ulocy te count panel Retic ulocy te cellu lar hemog lobin pg 28.0 37.0 34.6 FINAL Asim banerjee [facility] - [place] [facility], [address] [place] [address] 200 [place] [id number] 0 Phone: () - 06/19 CMP Album in g/dL 3.2 5.2 4.6 FINAL Asim banerjee Oncology [facility], [address] [facility] [id number] 0 Phone: () - 06/19 CMP Alkal ine phosp hatas e U/L 46.0 116.0 91 FINAL Asimmatt Cornelius [facility], [address] [facility] [id number] 0 Phone: () - 06/19 CMP ALT/S GPT U/L 7.0 40.0 27 FINAL Asim Cornelius [facility], [address] [facility] [id number] 0 Phone: () - 06/19 CMP AST/S GOT U/L 13.0 40.0 34 FINAL [facility], [address] [facility] [id number] 0 Phone: () - 06/19 CMP BUN mg/dL 9.0 23.0 11 FINAL [facility], [address] [place] [id number] 0 Phone: () - 06/19 CMP Calci um mg/dL 8.7 10.4 9.4 FINAL [facility], [address] [facility] [id number] 0 Phone: () - 06/19 CMP Chlor ray mmol/L 96.0 114.0 107 FINAL [facility], [address] [place] [id number] 0 Phone: () - 06/19 CMP CO2 [...] the 96 hour stability window. FINAL [facility], [address] [facility] [id number] 0 Phone: () - 06/19 CMP Creat inine mg/dL 0.5 1.2 0.68 FINAL [facility] [address] [facility] [id number] [phone] Phone: () - 06/19 CMP GFR estim ate ml/min /1.73m ^2 103.9 GFR is calculate d using the CKD-EPI equation. FINAL Asim Cornelius [facility], [address] [facility] [id number] 0 Phone: () - 06/19 CMP Gluco se mg/dL 73.0 126.0 95 FINAL Asimmtat Cornelius [facility], [address] [facility] [id number] 0 Phone: () - 06/19 CMP Potas sium mmol/L 3.[address] [facility], [address] [facility] [id number] 0 Phone: () - 06/19 CMP Sodiu m mmol/L 136.0 145.0 140 FINAL Asim [facility] [place], [address] [facility] [id number] 0 Phone: () - 06/19 CMP Bilir ubin, total mg/dL 0.3 1[address] [facility] [place], [address] [facility] [id number] 0 Phone: () - 06/19 CMP Total prote in g/dL 5.[address] [facility] [address] [facility] [address] [facility] [id number] 0 Phone: () - 01/19 [facility] other lab See organisational psychologist d 05/01 Mis other lab See organisational psychologist d 05/06 CBC w/ auto diff WBC K/uL 3.0 8.9 8.4 FINAL Deepthi Clemens [facility], [address] [facility] [id number] 0 Phone: () - 05/06 CBC w/ auto diff HGB g/dL 11.3 15.2 13.6 FINAL Deepthi Clemens [facility] - [place], [address] [place] [id number] 0 Phone: () - 05/06 CBC w/ auto diff PLT K/uL 113.0 364.0 266 FINAL Deepthi banerjee [facility] - [place], [address] [place] [id number] 0 Phone: () - 05/06 CBC w/ auto diff Dawna # (ANC) K/uL 1.6 6.6 3.9 FINAL Deepthi banerjee [facility] - [place], [address] [place] [id number] 0 Phone: () - 05/06 CBC w/ auto diff Dawna % % 43.0 74.0 46.7 FINAL Deepthi banerjee [facility] - [place], [address] [place] [id number] 0 Phone: () - 05/06 CBC w/ auto diff IG % % 0.0 0.5 0.5 FINAL Deepthi banerjee [facility] - [place], [address] [place] [id number] 0 Phone: () - 05/06 CBC w/ auto diff IG # K/uL 0.0 0.03 0.04 High FINAL Deepthi banerjee [facility] - [place], [address] [place] [id number] 0 Phone: () - 05/06 CBC w/ auto diff LY % % 14.0 41.0 44.8 High FINAL Deepthi banerjee [facility] - [place], [address] [place] [id number] 0 Phone: () - 05/06 CBC w/ auto diff MO % % 6.0 15.0 6.2 FINAL Deepthi banerjee [facility] - [place], [address] [place] [id number] 0 Phone: () - 05/06 CBC w/ auto diff EO % % 0.0 7.0 1.4 FINAL Deepthi banerjee [facility] - [place], [address] [place] [id number] 0 Phone: () - 05/06 CBC w/ auto diff BA % % 0.0 2.0 0.4 FINAL Deepthi banerjee [facility] - [place], [address] [place] [address] 200 [place] [id number] 0 Phone: () - 05/06 CBC w/ auto diff LY # K/uL 0.4 3.6 3.8 High FINAL Deepthi banerjee [facility] - [place], [address] [place] [address] 200 [place] [id number] 0 Phone: () - 05/06 CBC w/ auto diff MO # K/uL 0.2 1.3 0.5 FINAL Deepthi banerjee [facility] - [place] [facility], [address] [place] [address] 200 [place] [id number] 0 Phone: () - 05/06 CBC w/ auto diff EO # K/uL 0.0 0.6 0.1 FINAL Deepthi banerjee [facility] - [place] [facility], [address] [place] [address] 200 [place] [id number] 0 Phone: () - 05/06 CBC w/ auto diff BA # K/uL 0.0 0.2 0.0 FINAL Deepthi banerjee [facility] - [place] [facility], [address] [place] [address] 200 [place] [id number] 0 Phone: () - 05/06 CBC w/ auto diff NRBC % #/100W BC 0.0 0.2 0.0 FINAL Deepthi banerjee [facility] - [place] [facility], [address] [place] [address] 200 [place] [id number] 0 Phone: () - 05/06 CBC w/ auto diff RBC M/uL 3.9 5.1 4.57 FINAL Deepthi banerjee [facility] - [place] [facility], [address] [place] [address] 200 [place] [id number] 0 Phone: () - 05/06 CBC w/ auto diff HCT % 35.0 48.0 40.7 FINAL Deepthi banerjee [facility] - [place], [address] [place] [address] 200 [place] [id number] 0 Phone: () - 05/06 CBC w/ auto diff MCV fL 80.0 104.0 89.1 FINAL Deepthi banerjee [facility] - [place] [facility], [address] [place] [address] 200 [place] [id number] 0 Phone: () - 05/06 CBC w/ auto diff MCH pg 26.0 35.0 29.8 FINAL Deepthi banerjee [facility] - [place] [facility], [address] [place] [address] 200 [place] [id number] 0 Phone: () - 05/06 CBC w/ auto diff MCHC g/dL 30.0 35.0 33.4 FINAL Deepthi banerjee [facility] - [place] [facility], [address] [place] [address] 200 [place] [id number] 0 Phone: () - 05/06 CBC w/ auto diff MPV fL 9.5 13.4 9.3 Low FINAL Deepthi Clemens [facility] - [place] [facility], [address] [place] [address] 200 [place] [id number] 0 Phone: () - 05/06 CBC w/ auto diff RDW % 11.4 16.1 13.60 FINAL Deepthi Clemens lavonne [facility] - [place] [facility], [address] [place] [address] 200 [place] [id number] 0 Phone: () - 05/06 Retic ulocy te count panel Retic ulocy te, absol tuluksak M/uL 0.02 0.08 0.07 FINAL Deepthi Clemens [facility] - [place] [facility], [address] [place] [address] 200 [place] [id number] 0 Phone: () - 05/06 Retic ulocy te count panel Retic ulocy te count % 0.4 1.6 1.60 FINAL Deepthi Clemens [facility] - [place] [facility], [address] [place] [address] 200 [place] [id number] 0 Phone: () - 05/06 Retic ulocy te count panel Immat ure retic ulocy te fract ion, % % 0.0 16.5 9.70 FINAL Deepthi Clemens [facility] [place] [facility], [address] [place] [address] 200 [place] [id number] 0 Phone: () - 05/06 Retic ulocy te count panel Retic ulocy te cellu lar hemog lobin pg 28.0 37.0 33.0 FINAL Deepthi banerjee [facility] lis, [address] [place] [address] 200 [facility] [id number] 0 Phone: () - 05/06 CMP Album in g/dL 3.2 5.2 4.7 FINAL [place] [address] [id number] 0 Phone: () - 05/06 CMP Alkal ine phosp hatas e U/L 46.0 116.0 73 FINAL [place] [address] [id number] 0 Phone: () - 05/06 CMP ALT/S GPT U/L 7.0 40.0 19 FINAL [place] [address] [id number] 0 Phone: () - 05/06 CMP AST/S GOT U/L 13.0 40.0 21 FINAL [place] [address] [id number] 0 Phone: () - 05/06 CMP BUN mg/dL 9.0 23.0 16.0 FINAL [place] [address] [phone] 0 Phone: () - 05/06 CMP Calci um mg/dL 8.7 10.4 9.8 FINAL Deepthi Dodge [place] [address] [id number] 0 Phone: () - 05/06 CMP Chlor ray mmol/L 96.0 114.0 107 FINAL [place] [address] [id number] 0 Phone: () - 05/06 CMP CO2 [...] 96 hour stability window. FINAL Deepthi banerjee [place] [address] [id number] [phone] Phone: () - 05/06 CMP Creat inine mg/dL 0.5 1.2 0.80 FINAL Deepthi banerjee [place] [address] [phone] 0 Phone: () - 05/06 CMP GFR estim ate ml/min /1.73m ^2 90.1 GFR is calculate d using the CKD-EPI equation. FINAL Deepthi Clemens lavonne [place] [address] [phone] 0 Phone: () - 05/06 CMP Gluco se mg/dL 73.0 126.0 128 High FINAL Deepthi Clemens lavonne [place] [address] [id number] 0 Phone: () - 05/06 CMP Potas sium mmol/L 3.5 5.1 3.9 FINAL Deepthi Clemens lav[place] [address] [id number] 0 Phone: () - 05/06 CMP Sodiu m mmol/L 136.0 145.0 142 FINAL [place] [address] [phone] 0 Phone: () - 05/06 CMP Bilir ubin, total mg/dL 0.3 1.2 0.2 Low FINAL [place] [address] [id number] [phone] Phone: () - 05/06 CMP Total prote in g/dL 5.7 8.2 7.1 FINAL [place] [address] [address] [facility] 100 [facility] [id number] [phone] Phone: () - 05/06 LDH panel LDH U/L 120.0 246.0 191 FINAL Deepthi Eli a [facility] - [place], [address] [address] [facility] [phone] 0 Phone: () - Medications Date Name [...]
--- OUTSIDE RECORDS SUMMARY | 2025-03-02 10:14 | XMS_ITS ---
Author Name Interface, [id number] lity Address [address] [address] Organization [facility] Address [address] [address] Care Team Providers Care Blockers Skiver Name Role Phone Asim Cornelius Unavailable Unavailable [...] CASE REPORTSpe cial Hematolog y Report Case: [id number] ing Provider: Asim Cornelius MD Collected :05/01/20 20 1447Order ing Location: [facility] Received: 0 1212Patho logist: Seamus [...] iagnosed by left neck lymph node biopsy ([id number] , 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 Staging bonemarro w biopsy [...] specimens .ADDITION AL INFORMATI ONInterpr eted at [facility] - [address], [facility] [place], [place] [address]Pbyb Performed by:[facility] - [facility], [place] [address]Mvwb e [phone] FINAL Asim Ashli 05/01 Retic ulocy te count panel Retic ulocy te, absol ruby M/uL 0.02 0.08 0.08 FINAL Asim Clemens a Oncology - [facility] lis, [address] [place] [address] [address] [place] [id number] 0 Phone: () - 05/01 Retic ulocy te count panel Retic ulocy te count % 0.4 1.6 2.07 High FINAL Asim [facility], [address] [place] [id number] 0 Phone: () - 05/01 Retic ulocy te count panel Immat ure retic ulocy te fract ion, % % 0.0 16.5 10.10 FINAL Asim banerjee [facility]cology - [place] [facility], [address] [place] [id number] 0 Phone: () - 05/01 Retic ulocy te count panel Retic ulocy te cellu lar hemog lobin pg 28.0 37.0 36.5 FINAL Asim banerjee [facility]cology - [place], [address] [place] [address] [address] [place] [id number] 0 Phone: () - 05/01 Smear revie w panel CBC Smear revie w comme nts Large and-or giant platele ts present Atypica l (Reacti ve and/or Variant ) Lymphs present Abnor mal FINAL Asim banerjee [facility]cology - [place] [facility], [address] [place] [id number] 0 Phone: () - 05/01 CBC w/ auto diff PLT K/uL 113.0 364.0 257 FINAL Asim banerjee [facility]cology - [place] [facility], [address] [place] [id number] 0 Phone: () - 05/01 CBC w/ auto diff Dawna # (ANC) K/uL 1.6 6.6 2.2 FINAL Asim banerjee [facility]cology - [place], [address] [place] [id number] 0 Phone: () - 05/01 CBC w/ auto diff Dawna % % 43.0 74.0 46.0 FINAL Asim banerjee [facility]cology - [place], [address] [place] [address] [address] [place] [id number] 0 Phone: () - 05/01 CBC w/ auto diff IG % % 0.0 0.5 0.4 FINAL Asim banerjee [facility]cology - [place], [address] [place] [address] [address] [place] [id number] 0 Phone: () - 05/01 CBC w/ auto diff IG # K/uL 0.0 0.03 0.02 FINAL Asim banerjee [facility]cology - [place], [address] [place] [address] [address] [place] [id number] 0 Phone: () - 05/01 CBC w/ auto diff LY % % 14.0 41.0 38.7 FINAL Asim Clemensot a [facility] - [place] [facility], [address] [place] [address] 200 [place] [id number] 0 Phone: () - 05/01 CBC w/ auto diff MO % % 6.0 15.0 10.0 FINAL Asimmatt Clemensot a Oncology - [place] [facility], [address] [place] [address] 200 [place] [id number] 0 Phone: () - 05/01 CBC w/ auto diff EO % % 0.0 7.0 4.3 FINAL Asimmatt Clemensot a Oncology - [place] [facility], [address] [place] [id number] 0 Phone: () - 05/01 CBC w/ auto diff BA % % 0.0 2.0 0.6 FINAL Asim Clemensot a On[facility] - [place] [facility], [address] 200 [facility] [place] [id number] 0 Phone: () - 05/01 CBC w/ auto diff LY # K/uL 0.4 3.6 1.9 FINAL Asimmatt Clemensot a Oncology - [place] [facility], [address] [place] [id number] 0 Phone: () - 05/01 CBC w/ auto diff MO # K/uL 0.2 1.3 0.5 FINAL Asim Clemensot a [facility] - [place] [facility], [address] [place] [address] 200 [place] [id number] 0 Phone: () - 05/01 CBC w/ auto diff EO # K/uL 0.0 0.6 0.2 FINAL Asimmatt Clemensot a [facility] - [place] [facility], [address] [place] [id number] 0 Phone: () - 05/01 CBC w/ auto diff BA # K/uL 0.0 0.2 0.0 FINAL Asimmatt Clemensot a [facility] - [place] [facility], [address] [place] [address] [address] [place] [id number] 0 Phone: () - 05/01 CBC w/ auto diff NRBC % #/100W BC 0.0 0.2 0.0 FINAL Asim banerjee [facility]cology - [place] [facility], [address] [place] [address] [address] [place] [id number] 0 Phone: () - 05/01 CBC w/ auto diff RBC M/uL 3.9 5.1 4.01 FINAL Asim banerjee [facility]cology - [place] [facility], [address] [place] [address] [address] [place] [id number] 0 Phone: () - 05/01 CBC w/ auto diff HCT % 35.0 48.0 36.8 FINAL Asim banerjee [facility]cology - [place] [facility], [address] [place] [address] [address] [place] [id number] 0 Phone: () - 05/01 CBC w/ auto diff MCV fL 80.0 104.0 91.8 FINAL Asim banerjee [facility]cology - [place] [facility], [address] [place] [address] [address] [place] [id number] 0 Phone: () - 05/01 CBC w/ auto diff MCH pg 26.0 35.0 31.2 FINAL Asim banerjee [facility]cology - [place] [facility], [address] [place] [address] [address] [place] [id number] 0 Phone: () - 05/01 CBC w/ auto diff MCHC g/dL 30.0 35.0 34.0 FINAL Asim banerjee [facility]cology - [place] [facility], [address] [place] [address] [address] [place] [id number] 0 Phone: () - 05/01 CBC w/ auto diff MPV fL 9.5 13.4 9.1 Low FINAL Asim banerjee [facility]cology - [place] [facility], [address] [place] [address] [address] [place] [id number] 0 Phone: () - 05/01 CBC w/ auto diff RDW % 11.4 16.1 13.90 FINAL Asim banerjee [facility]cology - [place] [facility], [address] [place] [address] [address] [place] [id number] 0 Phone: () - 05/01 CBC w/ auto diff Auto CBC comme nts Slide review to follow FINAL Asim banerjee [facility]cology - [place] [facility], [address] [place] [address] [address] [place] [id number] 0 Phone: () - 05/01 CBC w/ auto diff WBC K/uL 3.0 8.9 4.9 FINAL Asim banerjee [facility], [address] [place] [id number] 0 Phone: () - 05/01 CBC w/ auto diff HGB g/dL 11.3 15.2 12.5 FINAL Asim banerjee [facility], [address] 200 [place] [id number] 0 Phone: () - 05/01 CMP Album in g/dL 3.2 5.2 4.4 FINAL Asim banerjee [address] [id number] 0 Phone: () - 05/01 CMP Alkal ine phosp hatas e U/L 46.0 116.0 76 FINAL Asimmatt Clemens lavonne [address] [id number] 0 Phone: () - 05/01 CMP ALT/S GPT U/L 7.0 40.0 12 FINAL Asimmatt Clemens[address] [place] [id number] 0 Phone: () - 05/01 CMP AST/S GOT U/L 13.0 40.0 16 FINAL Asimmatt Clemens lavonne [address] [id number] 0 Phone: () - 05/01 CMP BUN mg/dL 9.0 23.0 19 FINAL Asimmatt Clemens lavonne [address] [place] [id number] 0 Phone: () - 05/01 CMP Calci um mg/dL 8.7 10.4 9.4 FINAL Asimmatt banerjee [address] [place] [id number] 0 Phone: () - 05/01 CMP Chlor ray mmol/L 96.0 114.0 107 FINAL Asimmatt Clemens[address] [id number] 0 Phone: () - 05/01 CMP CO2 mmol/L 20.0 31.0 [address] [id number] 0 Phone: () - 05/01 CMP Creat inine mg/dL 0.5 1.2 0.[address] [id number] 0 Phone: () - 05/01 CMP GFR estim ate ml/min /1.73m ^2 97.0 GFR is calculate d using the CKD-EPI equation. FINAL [address] [phone] 0 Phone: () - 05/01 CMP Gluco se mg/dL 73.0 126.0 150 High FINAL [address] [id number] 0 Phone: () - 05/01 CMP Potas sium mmol/L 3.5 5.[address] [place] [id number] 0 Phone: () - 05/01 CMP Sodiu m mmol/L 136.0 145.[address] [id number] 0 Phone: () - 05/01 CMP Bilir ubin, total mg/dL 0.3 1.2 0.2 Low FINAL [address] [place] [id number] 0 Phone: () - 05/01 CMP Total prote in g/dL 5.7 8.[address] [place] [id number] 0 Phone: () - 06/19 Retic ulocy te count panel Retic ulocy te, absol ruby M/uL 0.02 0.08 0.08 FINAL [facility] lis, [address] [place] [id number] 0 Phone: () - 06/19 Retic ulocy te count panel Retic ulocy te count % 0.4 1.6 1.75 High FINAL Asim banerjee Oncology - [place] [facility], [address] [place] [id number] 0 Phone: () - 06/19 Retic ulocy te count panel Immat ure retic ulocy te fract ion, % % 0.0 16.5 10.80 FINAL Asim banerjee [facility]cology - [place] [facility], [address] [place] [address] 200 [place] [id number] 0 Phone: () - 06/19 Retic ulocy te count panel Retic ulocy te cellu lar hemog lobin pg 28.0 37.0 34.6 FINAL Asim banerjee [facility]cology - [place] [facility], [address] 200 [place] [id number] 0 Phone: () - 06/19 CBC w/ auto diff WBC K/uL 3.0 8.9 8.7 FINAL Asim banerjee [facility]cology - [place] [facility], [address] [place] [id number] 0 Phone: () - 06/19 CBC w/ auto diff HGB g/dL 11.3 15.2 14.2 FINAL Asim banerjee [facility]cology - [place] [facility], [address] [place] [id number] 0 Phone: () - 06/19 CBC w/ auto diff PLT K/uL 113.0 364.0 282 FINAL Asim banerjee Oncology - [place] [facility], [address] [place] [id number] 0 Phone: () - 06/19 CBC w/ auto diff Dawna # (ANC) K/uL 1.6 6.6 4.9 FINAL Asim banerjee Oncology - [place] [facility], [address] [place] [id number] 0 Phone: () - 06/19 CBC w/ auto diff Dawna % % 43.0 74.0 56.8 FINAL Asim banerjee Oncology - [place] [facility], [address] [place] [id number] 0 Phone: () - 06/19 CBC w/ auto diff IG % % 0.0 0.5 0.5 FINAL Asim banerjee [facility]cology - [place] [facility], [address] [place] [id number] 0 Phone: () - 06/19 CBC w/ auto diff IG # K/uL 0.0 0.03 0.04 High FINAL Asim banerjee [facility] - [place] [facility], [address] [place] [address] 200 [place] [id number] 0 Phone: () - 06/19 CBC w/ auto diff LY % % 14.0 41.0 33.4 FINAL Asim banerjee [facility]cology - [place] [facility], [address] [place] [id number] 0 Phone: () - 06/19 CBC w/ auto diff MO % % 6.0 15.0 7.0 FINAL Asim banerjee [facility] - [place] [facility], [address] [facility] [place] [id number] 0 Phone: () - 06/19 CBC w/ auto diff EO % % 0.0 7.0 1.8 FINAL Asim banerjee [facility]cology - [place] [facility], [address] [place] [id number] 0 Phone: () - 06/19 CBC w/ auto diff BA % % 0.0 2.0 0.5 FINAL Asim Eli a [facility] - [place] [facility], [address] [place] [id number] 0 Phone: () - 06/19 CBC w/ auto diff LY # K/uL 0.4 3.6 2.9 FINAL Asimmatt Eli a [facility] - [place] [facility], [facility] [address] [place] [id number] 0 Phone: () - 06/19 CBC w/ auto diff MO # K/uL 0.2 1.3 0.6 FINAL Asim Eli a [facility] - [place] [facility], [address] [place] [id number] 0 Phone: () - 06/19 CBC w/ auto diff EO # K/uL 0.0 0.6 0.2 FINAL Asim banerjee Oncology - [place] [facility], [address] [place] [address] [address] [place] [id number] 0 Phone: () - 06/19 CBC w/ auto diff BA # K/uL 0.0 0.2 0.0 FINAL Asim banerjee Oncology - [place] [facility], [address] [place] [address] [address] [place] [id number] 0 Phone: () - 06/19 CBC w/ auto diff NRBC % #/100W BC 0.0 0.2 0.0 FINAL Asim banerjee [facility] - [place] [facility], [address] [place] [address] [address] [place] [id number] 0 Phone: () - 06/19 CBC w/ auto diff RBC M/uL 3.9 5.1 4.67 FINAL Asim banerjee [facility] - [place] [facility], [address] [place] [address] [address] [place] [id number] 0 Phone: () - 06/19 CBC w/ auto diff HCT % 35.0 48.0 41.7 FINAL Asim banerjee Oncology - [place] [facility], [address] [place] [address] [address] [place] [id number] 0 Phone: () - 06/19 CBC w/ auto diff MCV fL 80.0 104.0 89.3 FINAL Asim banerjee [facility]cology - [place] [facility], [address] [place] [address] [address] [place] [id number] 0 Phone: () - 06/19 CBC w/ auto diff MCH pg 26.0 35.0 30.4 FINAL Asim banerjee [facility] - [place] [facility], [address] [place] [address] [address] [place] [id number] 0 Phone: () - 06/19 CBC w/ auto diff MCHC g/dL 30.0 35.0 34.1 FINAL Asim banerjee [facility] - [place] [facility], [address] [place] [address] [address] [place] [id number] 0 Phone: () - 06/19 CBC w/ auto diff MPV fL 9.5 13.4 8.8 Low FINAL Asim banerjee [facility] lis, [address] [place] [address] [address] [place] [id number] 0 Phone: () - 06/19 CBC w/ auto diff RDW % 11.4 16.1 13.10 FINAL Asim banerjee [facility], [address] [place] [address] [address] [place] [id number] 0 Phone: () - 06/19 LDH panel LDH U/L 120.0 246.0 246 FINAL Asim banerjee [facility], [address] [place] [address] [id number] 0 Phone: () - 06/19 CMP Album in g/dL 3.2 5.2 4.6 FINAL Asim banerjee [facility], [address] [facility] [address] [place] [address] [id number] 0 Phone: () - 06/19 CMP Alkal ine phosp hatas e U/L 46.0 116.0 91 FINAL Asim Clemens lavonne [facility], [address] [place] [address] [id number] 0 Phone: () - 06/19 CMP ALT/S GPT U/L 7.0 40.0 27 [facility] [address] [facility] [address] [place] [address] [id number] 0 Phone: () - 06/19 CMP AST/S GOT U/L 13.0 40.0 34 [facility], [address] [facility] [address] [place] [address] [id number] 0 Phone: () - 06/19 CMP BUN mg/dL 9.0 23.0 11 FINAL Asim Clemens lavonne [facility] [address] [facility] [address] [place] [address] [id number] 0 Phone: () - 06/19 CMP Calci um mg/dL 8.7 10.4 9.4 FINAL Asim banerjee [facility], [address] [place] [address] [id number] 0 Phone: () - 06/19 CMP Chlor ray mmol/L 96.0 114.0 107 FINAL Asim [facility], [address] [facility] [address] [facility] [id number] 0 Phone: () - 06/19 CMP CO2 [...] the 96 hour stability window. FINAL Asim [facility], [address] [id number] 0 Phone: () - 06/19 CMP Creat inine mg/dL 0.5 1.2 0.68 [facility] [address] [id number] 0 Phone: () - 06/19 CMP GFR estim ate ml/min /1.73m ^2 103.9 GFR is calculate d using the CKD-EPI equation. FINAL [place] [address] [id number] 0 Phone: () - 06/19 CMP Gluco se mg/dL 73.0 126.0 95 [facility] [address] [facility] [address] [id number] 0 Phone: () - 06/19 CMP Potas sium mmol/L 3.5 5.1 4.1 [facility] [address] [facility] [address] [id number] 0 Phone: () - 06/19 CMP Sodiu m mmol/L 136.0 145.0 140 [facility] [address] [facility] [address] [id number] 0 Phone: () - 06/19 CMP Bilir ubin, total mg/dL 0.3 1.2 0.2 Low [facility], [address] [facility] [address] [id number] 0 Phone: () - 06/19 CMP Total prote in g/dL 5.7 8.2 6.9 FINAL Asim Cornelius [facility] [place], [address] [facility] [id number] 0 Phone: () - 06/19 Path perip heral blood slide revie w panel Patho logy/ Cytol ogy Morph ology SEE RESULTS BELOW CASE REPORTSpe cial Hematolog y Report Case: [id number] ing Provider: Asim Cornelius MD Collected :06/19/20 21 1340Order ing Location: [facility] Received: 1 1734Patho logist: Elvie Hernández MDSpecime n: BloodFINA L DIAGNOSIS PERIPHERA L BLOOD:1. Negative for circulati ng blasts2. Within normal limitsEle ctronical ly signed by Elvie Hernández MD on 06/20/2021 at 1:03 PMCOMMENT This case was also reviewed by Mis hill [place], MS ([facility]).CL INICAL INFORMATI ONThe patient is a 46-year-o ld female with a history of acute lymphoid leukemia. 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 Staging bone marrow biopsy was negative forlympho ma ([id number]) . Her most recent periphera l blood morpholog y 2019 ([id number] ,05/01/2020 ) was negative for circulati ng [...] blood smear.ADD ITIONAL INFORMATI ONInterpr eted at [facility] - [address], [place], [place] [address]Eioa Performed by:[facility] - [place], [place] [address]Mtnz e : FINAL Asim Cornelius 01/19 [facility] other lab See eastern philosophy professor d 05/01 [facility] other lab See eastern philosophy professor d 05/06 LDH panel LDH U/L 120.0 246.0 191 FINAL Deepthi [facility]any [facility], [address] [place] [id number] 0 Phone: () - 05/06 CMP Album in g/dL 3.2 5.2 4.7 FINAL Deepthi Steelsalimayobany [facility], [address] [place] [id number] 0 Phone: () - 05/06 CMP Alkal ine phosp hatas e U/L 46.0 116.0 73 FINAL Deepthi Steelshannon [facility], [address] [id number] 0 Phone: () - 05/06 CMP ALT/S GPT U/L 7.0 40.0 19 FINAL Deepthi banerjee [place] [address] [id number] 0 Phone: () - 05/06 CMP AST/S GOT U/L 13.0 40.0 21 FINAL [place] [address] [id number] 0 Phone: () - 05/06 CMP BUN mg/dL 9.0 23.0 16.0 FINAL Deepthi Dodge [place] [address] [id number] 0 Phone: () - 05/06 CMP Calci um mg/dL 8.7 10.4 9.8 FINAL Deepthi Dodge [place] [address] [id number] 0 Phone: () - 05/06 CMP Chlor ray mmol/L 96.0 114.0 107 FINAL Deepthi Steelyobany [place] [address] [id number] 0 Phone: () - 05/06 CMP CO2 [...] the 96 hour stability window. FINAL [place] [address] [id number] 0 Phone: () - 05/06 CMP Creat inine mg/dL 0.5 1.2 0.80 FINAL Deepthi Dodge [place] [address] [address] [facility] [address] [id number] 0 Phone: () - 05/06 CMP GFR estim ate ml/min /1.73m ^2 90.1 GFR is calculate d using the CKD-EPI equation. FINAL Deepthi Clemens lavonne [facility], [address] [phone] 0 Phone: () - 05/06 CMP Gluco se mg/dL 73.0 126.0 128 High FINAL [facility], [address] [id number] 0 Phone: () - 05/06 CMP Potas sium mmol/L 3.5 5.1 3.9 FINAL [facility], [address] [id number] 0 Phone: () - 05/06 CMP Sodiu m mmol/L 136.0 145.0 142 FINAL [facility], [address] [id number] 0 Phone: () - 05/06 CMP Bilir ubin, total mg/dL 0.3 1.2 0.2 Low FINAL [facility], [address] [id number] 0 Phone: () - 05/06 CMP Total prote in g/dL 5.7 8.2 7.1 FINAL Deepthi Dodge [facility], [address] [id number] 0 Phone: () - 05/06 Retic ulocy te count panel Retic ulocy te, absol ruby M/uL 0.02 0.08 0.[address] [facility], [address] [place] [address] 200 [facility] [id number] 0 Phone: () - 05/06 Retic ulocy te count panel Retic ulocy te count % 0.4 1.6 1.[address] [facility], [address] [place] [address] 200 [facility] [id number] 0 Phone: () - 05/06 Retic ulocy te count panel Immat ure retic ulocy te fract ion, % % 0.0 16.5 9.70 FINAL Deepthi banerjee [facility] - [place] [facility], [address] [place] [address] [address] [place] [id number] 0 Phone: () - 05/06 Retic ulocy te count panel Retic ulocy te cellu lar hemog lobin pg 28.0 37.0 33.0 FINAL Deepthi banerjee [facility] - [place] [facility], [address] [place] [address] [address] [place] [id number] 0 Phone: () - 05/06 CBC w/ auto diff WBC K/uL 3.0 8.9 8.4 FINAL Deepthi Clemens lavonne [facility] - [place] [facility], [address] [place] [id number] 0 Phone: () - 05/06 CBC w/ auto diff HGB g/dL 11.3 15.2 13.6 FINAL Deepthi Clemens lavonne [facility], [address] [place] [id number] 0 Phone: () - 05/06 CBC w/ auto diff PLT K/uL 113.0 364.0 266 FINAL Deepthi Clemens lavonne [facility] - [place] [facility], [address] [place] [id number] 0 Phone: () - 05/06 CBC w/ auto diff Dawna # (ANC) K/uL 1.6 6.6 3.9 FINAL Deepthi Clemens lavonne [facility], [address] [place] [address] [address] [place] [id number] 0 Phone: () - 05/06 CBC w/ auto diff Dawna % % 43.0 74.0 46.7 FINAL Deepthi banerjee [facility] - [place] [facility], [address] [place] [address] [address] [place] [id number] 0 Phone: () - 05/06 CBC w/ auto diff IG % % 0.0 0.5 0.5 FINAL Deepthi Clemens lavonne [facility] [place] [facility], [address] [place] [address] [address] [place] [id number] 0 Phone: () - 05/06 CBC w/ auto diff IG # K/uL 0.0 0.03 0.04 High FINAL Deepthi banerjee [facility] [place], [address] [place] [address] [address] [place] [id number] 0 Phone: () - 05/06 CBC w/ auto diff LY % % 14.0 41.0 44.8 High FINAL Deepthi banerjee [facility] [place], [address] [place] [address] [address] [place] [id number] 0 Phone: () - 05/06 CBC w/ auto diff MO % % 6.0 15.0 6.2 FINAL Deepthi Eli [facility] [place], [address] [place] [address] [address] [place] [id number] 0 Phone: () - 05/06 CBC w/ auto diff EO % % 0.0 7.0 1.4 FINAL Deepthi Eli a [facility] [place], [address] [place] [address] [address] [place] [id number] 0 Phone: () - 05/06 CBC w/ auto diff BA % % 0.0 2.0 0.4 FINAL Deepthi Eli a [facility] [place], [address] [place] [address] [address] [place] [id number] 0 Phone: () - 05/06 CBC w/ auto diff LY # K/uL 0.4 3.6 3.8 High FINAL Deepthi Eli a [facility] [place], [address] [place] [address] [address] [place] [id number] 0 Phone: () - 05/06 CBC w/ auto diff MO # K/uL 0.2 1.3 0.5 FINAL Deepthi banerjee [facility] - [place], [address] [place] [address] [address] [place] [id number] 0 Phone: () - 05/06 CBC w/ auto diff EO # K/uL 0.0 0.6 0.1 FINAL Deepthi banerjee [facility] - [place], [address] [place] [address] [address] [place] [id number] 0 Phone: () - 05/06 CBC w/ auto diff BA # K/uL 0.0 0.2 0.0 FINAL Deepthi banerjee [facility] - [place], [address] [place] [address] [address] [place] [id number] 0 Phone: () - 05/06 CBC w/ auto diff NRBC % #/100W BC 0.0 0.2 0.0 FINAL Deepthi banerjee [facility] [place] [facility], [address] [place] [address] [address] [place] [id number] 0 Phone: () - 05/06 CBC w/ auto diff RBC M/uL 3.9 5.1 4.57 FINAL Deepthi banerjee [facility] [place] [facility], [address] [place] [address] [address] [place] [id number] 0 Phone: () - 05/06 CBC w/ auto diff HCT % 35.0 48.0 40.7 FINAL Deepthi banerjee [facility] - [facility], [address] [place] [address] [address] [place] [id number] Phone: () - 05/06 CBC w/ auto diff MCV fL 80.0 104.0 89.1 FINAL Deepthi banerjee [facility] - [facility], [address] [place] [address] [address] [place] [id number] Phone: () - 05/06 CBC w/ auto diff MCH pg 26.0 35.0 29.8 FINAL Deepthi banerjee [facility] - [facility], [address] [place] [id number] 0 Phone: () - 05/06 CBC w/ auto diff MCHC g/dL 30.0 35.0 33.4 FINAL Deepthi banerjee [facility] - [facility], [address] [place] [address] [address] [place] [id number] Phone: () - 05/06 CBC w/ auto diff MPV fL 9.5 13.4 9.3 Low FINAL Deepthi banerjee [facility] - [facility], [address] [place] [address] [address] [place] [id number] 0 Phone: () - 05/06 CBC w/ auto diff RDW % 11.4 16.1 13.60 FINAL Deepthi banerjee On[facility] - [place] [facility], [address] 200 [facility] [phone] 0 Phone: () - Medications Date Name [...]
--- OUTSIDE RECORDS SUMMARY | 2025-03-02 10:14 | XMS_ITS ---
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 Staging bone marrow biopsy was negative forlympho ma ([id number]) . Her most recent periphera l blood morpholog y 2019 ([id number] ,05/01/2020 ) was negative for circulati ng [...] blood smear.ADD ITIONAL INFORMATI ONInterpr eted at [facility], [facility] - [address], [place], [place] [address]Elzo Performed by:[facility] - [place], [place] [address]Rmcq e [phone] FINAL Asim Cornelius 06/19 CBC w/ auto diff WBC K/uL 3.0 8.9 8.7 FINAL Asim Clemensot a Oncology - [facility] lis, [address] [place] [id number] 0 Phone: () - 06/19 CBC w/ auto diff HGB g/dL 11.3 15.2 14.2 FINAL Asim Clemensot a Oncology - [facility], [address] [place] [id number] 0 Phone: () - 06/19 CBC w/ auto diff PLT K/uL 113.0 364.0 282 FINAL Asim Clemensot a Oncology - [facility], [address] [place] [id number] 0 Phone: () - 06/19 CBC w/ auto diff Dawna # (ANC) K/uL 1.6 6.6 4.9 FINAL Asim Eli a [facility] - [place], [address] [place] [address] [address] [place] [id number] 0 Phone: () - 06/19 CBC w/ auto diff Dawna % % 43.0 74.0 56.8 FINAL Asim Eli a [facility] - [place], [address] [place] [address] [address] [place] [id number] 0 Phone: () - 06/19 CBC w/ auto diff IG % % 0.0 0.5 0.5 FINAL Asim Eli a [facility] - [place], [address] [place] [address] [address] [place] [id number] 0 Phone: () - 06/19 CBC w/ auto diff IG # K/uL 0.0 0.03 0.04 High FINAL Asim Eli a [facility] - [place], [address] [place] [address] [address] [place] [id number] 0 Phone: () - 06/19 CBC w/ auto diff LY % % 14.0 41.0 33.4 FINAL Asim Eli a [facility] - [place], [address] [place] [address] [address] [place] [id number] 0 Phone: () - 06/19 CBC w/ auto diff MO % % 6.0 15.0 7.0 FINAL Asim Eli a [facility] - [place], [address] [place] [address] [address] [place] [id number] 0 Phone: () - 06/19 CBC w/ auto diff EO % % 0.0 7.0 1.8 FINAL Asim Eli a [facility] - [place], [address] [place] [address] [address] [place] [id number] 0 Phone: () - 06/19 CBC w/ auto diff BA % % 0.0 2.0 0.5 FINAL Asim Eli a [facility] - [place], [address] [place] [address] [address] [place] [id number] 0 Phone: () - 06/19 CBC w/ auto diff LY # K/uL 0.4 3.6 2.9 FINAL Asim Eli a [facility] - [place], [address] [place] [id number] 0 Phone: () - 06/19 CBC w/ auto diff MO # K/uL 0.2 1.3 0.6 FINAL Asim banerjee Oncology - [place], [address] [place] [id number] 0 Phone: () - 06/19 CBC w/ auto diff EO # K/uL 0.0 0.6 0.2 FINAL Asim banerjee Oncology - [place], [address] [place] [id number] 0 Phone: () - 06/19 CBC w/ auto diff BA # K/uL 0.0 0.2 0.0 FINAL Asim banerjee Oncology - [place], [address] [place] [id number] 0 Phone: () - 06/19 CBC w/ auto diff NRBC % #/100W BC 0.0 0.2 0.0 FINAL Asim banerjee Oncology - [place], [address] [place] [id number] 0 Phone: () - 06/19 CBC w/ auto diff RBC M/uL 3.9 5.1 4.67 FINAL Asim banerjee Oncology - [place], [address] [place] [id number] 0 Phone: () - 06/19 CBC w/ auto diff HCT % 35.0 48.0 41.7 FINAL Asim banerjee Oncology - [place], [address] [place] [id number] 0 Phone: () - 06/19 CBC w/ auto diff MCV fL 80.0 104.0 89.3 FINAL Asim banerjee Oncology - [place], [address] [place] [address] [address] [place] [id number] 0 Phone: () - 06/19 CBC w/ auto diff MCH pg 26.0 35.0 30.4 FINAL Asim banerjee Oncology - [place], [address] [place] [id number] 0 Phone: () - 06/19 CBC w/ auto diff MCHC g/dL 30.0 35.0 34.1 FINAL Asim banerjee Oncology - [place] [facility], [address] [place] [id number] 0 Phone: () - 06/19 CBC w/ auto diff MPV fL 9.5 13.4 8.8 Low FINAL Asim banerjee Oncology - [place] [facility], [address] [place] [id number] 0 Phone: () - 06/19 CBC w/ auto diff RDW % 11.4 16.1 13.10 FINAL Asim banerjee Oncology - [place] [facility], [address] [place] [address] 200 [place] [id number] 0 Phone: () - 06/19 Retic ulocy te count panel Retic ulocy te, absol [place] M/uL 0.02 0.08 0.08 FINAL Asim banerjee Oncology - [place] [facility], [address] [place] [id number] 0 Phone: () - 06/19 Retic ulocy te count panel Retic ulocy te count % 0.4 1.6 1.75 High FINAL Asim banerjee Oncology - [place] [facility], [address] [place] [address] 200 [place] [id number] 0 Phone: () - 06/19 Retic ulocy te count panel Immat ure retic ulocy te fract ion, % % 0.0 16.5 10.80 FINAL Asim banerjee Oncology - [place] [facility], [address] [place] [id number] 0 Phone: () - 06/19 Retic ulocy te count panel Retic ulocy te cellu lar hemog lobin pg 28.0 37.0 34.6 FINAL Asim banerjee Oncology - [place] [facility], [address] [place] [address] 200 [place] [id number] 0 Phone: () - 06/19 CMP Album in g/dL 3.2 5.2 4.6 FINAL Asim banerjee Oncology [facility], [address] [facility] [id number] 0 Phone: () - 06/19 CMP Alkal ine phosp hatas e U/L 46.0 116.[address] [facility], [address] [facility] [id number] 0 Phone: () - 06/19 CMP ALT/S GPT U/L 7.0 40.[address] [facility], [address] [facility] [id number] 0 Phone: () - 06/19 CMP AST/S GOT U/L 13.0 40.0 34 FINAL [facility], [address] [facility] [id number] 0 Phone: () - 06/19 CMP BUN mg/dL 9.0 23.0 11 FINAL [facility], [address] [place] [id number] 0 Phone: () - 06/19 CMP Calci um mg/dL 8.7 10.4 9.4 FINAL [facility], [address] [facility] [id number] 0 Phone: () - 06/19 CMP Chlor ray mmol/L 96.0 114.0 107 FINAL [facility], [address] [place] [id number] 0 Phone: () - 06/19 CMP CO2 [...] the 96 hour stability window. [facility]AL [facility], [address] [facility] [id number] 0 Phone: () - 06/19 CMP Creat inine mg/dL 0.5 1.2 0.68 FINAL [facility] [address] [facility] [id number] 0 Phone: () - 06/19 CMP GFR estim ate ml/min /1.73m ^2 103.9 GFR is calculate d using the CKD-EPI equation. FINAL Asim Cornelius [facility], [address] [facility] [id number] 0 Phone: () - 06/19 CMP Gluco se mg/dL 73.0 126.[address] [facility], [address] [facility] [id number] 0 Phone: () - 06/19 CMP Potas sium mmol/L 3.[address] [facility], [address] [facility] [id number] 0 Phone: () - 06/19 CMP Sodiu m mmol/L 136.0 145.0 140 FINAL Asim [facility], [address] [facility] [id number] 0 Phone: () - 06/19 CMP Bilir ubin, total mg/dL 0.3 1[address] [facility], [address] [facility] [id number] 0 Phone: () - 06/19 CMP Total prote in g/dL 5.[address] [facility] [address] [facility] 100 [facility] [id number] 0 Phone: () - 01/19 [facility] other lab See handle attacher d 05/01 Mis other lab See handle attacher d 05/06 CBC w/ auto diff WBC K/uL 3.0 8.9 8.4 FINAL Deepthi Clemens lavonne [facility], [address] [facility] [id number] 0 Phone: () - 05/06 CBC w/ auto diff HGB g/dL 11.3 15.2 13.6 FINAL Deepthi Clemens [facility] - [place], [address] [place] [id number] 0 Phone: () - 05/06 CBC w/ auto diff PLT K/uL 113.0 364.0 266 FINAL Deepthi banerjee Oncology - [place], [address] [place] [id number] 0 Phone: () - 05/06 CBC w/ auto diff Dawna # (ANC) K/uL 1.6 6.6 3.9 FINAL Deepthi banerjee Oncology - [place], [address] [place] [id number] 0 Phone: () - 05/06 CBC w/ auto diff Dawna % % 43.0 74.0 46.7 FINAL Deepthi banerjee Oncology - [place], [address] 200 [place] [id number] 0 Phone: () - 05/06 CBC w/ auto diff IG % % 0.0 0.5 0.5 FINAL Deepthi banerjee Oncology - [place], [address] 200 [place] [id number] 0 Phone: () - 05/06 CBC w/ auto diff IG # K/uL 0.0 0.03 0.04 High FINAL Deepthi banerjee Oncology - [place], [address] [place] [id number] 0 Phone: () - 05/06 CBC w/ auto diff LY % % 14.0 41.0 44.8 High FINAL Deepthi banerjee Oncology - [place], [address] [place] [id number] 0 Phone: () - 05/06 CBC w/ auto diff MO % % 6.0 15.0 6.2 FINAL Deepthi banerjee Oncology - [place], [address] [place] [id number] 0 Phone: () - 05/06 CBC w/ auto diff EO % % 0.0 7.0 1.4 FINAL Deepthi banerjee Oncology - [place], [address] 200 [place] [id number] 0 Phone: () - 05/06 CBC w/ auto diff BA % % 0.0 2.0 0.4 FINAL Deepthi banerjee Oncology - [place], [address] [place] [address] 200 [place] [id number] 0 Phone: () - 05/06 CBC w/ auto diff LY # K/uL 0.4 3.6 3.8 High FINAL Deepthi banerjee Oncology - [place], [address] [place] [address] 200 [place] [id number] 0 Phone: () - 05/06 CBC w/ auto diff MO # K/uL 0.2 1.3 0.5 FINAL Deepthi banerjee Oncology - [place] [facility], [address] [place] [address] 200 [place] [id number] 0 Phone: () - 05/06 CBC w/ auto diff EO # K/uL 0.0 0.6 0.1 FINAL Deepthi banerjee Oncology - [place] [facility], [address] [place] [address] 200 [place] [id number] 0 Phone: () - 05/06 CBC w/ auto diff BA # K/uL 0.0 0.2 0.0 FINAL Deepthi banerjee Oncology - [place] [facility], [address] [place] [address] 200 [place] [id number] 0 Phone: () - 05/06 CBC w/ auto diff NRBC % #/100W BC 0.0 0.2 0.0 FINAL Deepthi banerjee Oncology - [place] [facility], [address] [place] [address] 200 [place] [id number] 0 Phone: () - 05/06 CBC w/ auto diff RBC M/uL 3.9 5.1 4.57 FINAL Deepthi banerjee Oncology - [place] [facility], [address] [place] [address] 200 [place] [id number] 0 Phone: () - 05/06 CBC w/ auto diff HCT % 35.0 48.0 40.7 FINAL Deepthi banerjee Oncology - [place], [address] [place] [address] 200 [place] [id number] 0 Phone: () - 05/06 CBC w/ auto diff MCV fL 80.0 104.0 89.1 FINAL Deepthi banerjee Oncology - [place] [facility], [address] [place] [address] 200 [place] [id number] 0 Phone: () - 05/06 CBC w/ auto diff MCH pg 26.0 35.0 29.8 FINAL Deepthi banerjee Oncology - [place] [facility], [address] [place] [address] 200 [place] [id number] 0 Phone: () - 05/06 CBC w/ auto diff MCHC g/dL 30.0 35.0 33.4 FINAL Deepthi banerjee Oncology - [place] [facility], [address] [place] [address] 200 [place] [id number] 0 Phone: () - 05/06 CBC w/ auto diff MPV fL 9.5 13.4 9.3 Low FINAL Deepthi Clemens [facility] - [place] [facility], [address] [place] [address] 200 [place] [id number] 0 Phone: () - 05/06 CBC w/ auto diff RDW % 11.4 16.1 13.60 FINAL Deepthi Clemens [facility] - [place] [facility], [address] [place] [address] 200 [place] [id number] 0 Phone: () - 05/06 Retic ulocy te count panel Retic ulocy te, absol [place] M/uL 0.02 0.08 0.07 FINAL Deepthi Clemens [facility] - [place] [facility], [address] [place] [address] 200 [place] [id number] 0 Phone: () - 05/06 Retic ulocy te count panel Retic ulocy te count % 0.4 1.6 1.60 FINAL Deepthi Clemens [facility] - [place] [facility], [address] [place] [address] 200 [place] [id number] 0 Phone: () - 05/06 Retic ulocy te count panel Immat ure retic ulocy te fract ion, % % 0.0 16.5 9.70 FINAL Deepthi Clemens [facility] - [place] [facility], [address] [place] [address] 200 [place] [id number] 0 Phone: () - 05/06 Retic ulocy te count panel Retic ulocy te cellu lar hemog lobin pg 28.0 37.0 33.0 FINAL Deepthi banerjee [facility] lis, [address] [place] [address] 200 [facility] [id number] 0 Phone: () - 05/06 CMP Album in g/dL 3.2 5.2 4.7 FINAL [place] [address] [id number] 0 Phone: () - 05/06 CMP Alkal ine phosp hatas e U/L 46.0 116.0 73 FINAL [place] [address] [id number] 0 Phone: () - 05/06 CMP ALT/S GPT U/L 7.0 40.0 19 FINAL [place] [address] [phone] 0 Phone: () - 05/06 CMP AST/S GOT U/L 13.0 40.0 21 FINAL [place] [address] [id number] 0 Phone: () - 05/06 CMP BUN mg/dL 9.0 23.0 16.0 FINAL [place] [address] [id number] 0 Phone: () - 05/06 CMP Calci um mg/dL 8.7 10.4 9.8 FINAL Deepthi Dodge [place] [address] [id number] 0 Phone: () - 05/06 CMP Chlor ray mmol/L 96.0 114.0 107 FINAL [place] [address] [id number] 0 Phone: () - 05/06 CMP CO2 [...] 96 hour stability window. FINAL Deepthi banerjee [place] [address] [phone] 0 Phone: () - 05/06 CMP Creat inine mg/dL 0.5 1.2 0.80 FINAL Deepthi banerjee [place] [address] [phone] 0 Phone: () - 05/06 CMP GFR estim ate ml/min /1.73m ^2 90.1 GFR is calculate d using the CKD-EPI equation. FINAL Deepthi Clemens lavonne [place] [address] [phone] 0 Phone: () - 05/06 CMP Gluco se mg/dL 73.0 126.0 128 High FINAL Deepthi Clemens lavonne [place] [address] [phone] 0 Phone: () - 05/06 CMP Potas sium mmol/L 3.5 5.1 3.9 FINAL Deepthi Clemens lav[place] [address] [id number] 0 Phone: () - 05/06 CMP Sodiu m mmol/L 136.0 145.0 142 FINAL [place] [address] [id number] 0 Phone: () - 05/06 CMP Bilir ubin, total mg/dL 0.3 1.2 0.2 Low FINAL [place] [address] [phone] 0 Phone: () - 05/06 CMP Total prote in g/dL 5.7 8.2 7.1 FINAL [place] [address] [address] [facility] 100 [facility] [phone] 0 Phone: () - 05/06 LDH panel LDH U/L 120.0 246.0 191 FINAL Deepthi Eli a Oncology - [address], [address] [facility] [address] [facility] [phone] 0 Phone: () - Medications Date Name [...]
--- OUTSIDE RECORDS SUMMARY | 2025-03-02 10:14 | XMS_ITS | Clinical Summary ---
Author Organization [facility] Address [facility] [place] [address] Care Team Providers Care Gm Mobile Name Role Phone Wilfredo Ellis MD Primary Care Provider [phone] Allergies Active Allergy Reactions Criticality Noted Date [...] on file Legal Sex Female 6:48 AM [employer]HE[employer] Gender Identity Not on file Sexual Orientation Not on file Obstetrics History Last Filed Vital Signs Vital Sign Reading Time Taken Comments Blood Pressure 136/78 05/11/2023 1:53 PM CDT Pulse 95 05/11/2023 1:53 PM CDT Temperature 37.3 C (99.2 F) 01/19/2023 11:49 AM [employer]HE[employer] C[employer]TER Respiratory Rate 22 01/19/2023 11:49 AM [employer]HET[employer]TER Oxygen Saturation 95% 05/11/2023 1:53 PM CDT [...] SCREEN FFDM (IA) Routine 01/15/2015 11:43 AM [employer]HET[employer] C[employer]TER Other screening mammogram from Last 3 Months or Most Recently Relevant to Health Maintenance Results * ANTI HIV 1/2 (05/03/2019 4:26 AM CDT) HIV-1/HIV-2 ANTIBODY Non-Reacti ve Non-Reacti ve 05/03/2019 7:[address] [facility] Comment:HIV-1 p24 and HIV-1/ HIV-2 Ab not detected. Blood BLOOD SPECIMEN / Unknown Non-Lab Venipuncture / Unknown 05/03/2019 4:26 AM CDT 05/03/2019 4:32 AM CDT us Lili Christopher MD SEND OUTS Final Result [facility] 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 Recommend annual mammograms. A lay language report of this examination will be provided to the patient. MAMMOGRAM ASSESSMENT: ACR 1 Negative Narrative 01/15/2015 3:29 PM [employer]HET[employer] B[employer] CUTTER XR MAMMO BILAT SCREEN FFDM [G0202.0] CLINICAL [...] Most Recently Relevant to Health Maintenance Insurance [facility] Advance Directives * Full Code (Latest [...] 12:26 PM 07/19/2019 2:38 PM Care Teams Gm Mobile Relationship Specialty Start Date End Date Wilfredo Ellis MD PCP - General 04/25/08
--- OUTSIDE RECORDS SUMMARY | 2025-03-02 10:14 | XMS_ITS | CCD ---
Author Name Interface, U7Qoxohpv lity Address [address] [place] [address] [address] [address] Organization [facility] Address [address] [facility] [address] [place] [address] Care Team Providers Care Dean Of Men Name Role Phone ChristiDeepthi haywood Unavailable Unavailable [...] Name Instructions Status 05/09/2024 Physician Order RTC MD/FAST FOOD SHIFT LEAD Ordered Social History Date Name Value 05/01/2023 Sex Female
--- OUTSIDE RECORDS SUMMARY | 2025-03-02 10:14 | XMS_ITS ---
Author Name Interface, V4Kinbsqy lity Address [address] [facility] [address] [address] Organization [facility] Address [address] [facility] [address] [address] Care Team Providers Care Head Sugar Reprocess Operator Name Role Phone Asim Cornelius Unavailable Unavailable [...] CASE REPORTSpe cial Hematolog y Report Case: [id number] 6Authoriz ing Provider: Asim Cornelius MD Collected [...] iagnosed by left neck lymph node biopsy ([id number] , 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 Staging bonemarro w biopsy [...] specimens .ADDITION AL INFORMATI ONInterpr eted at [facility] - [address], [facility] [place] [address]Wjtz Performed by:[facility] - [facility], [place] [address]Lreo e [phone] FINAL Asim Ashli 05/01 Retic ulocy te count panel Retic ulocy te, absol [place] M/uL 0.02 0.08 0.08 FINAL Asim Clemens a Oncology - [facility] lis, [address] [place] [address] [address] [place] [id number] 0 Phone: () - 05/01 Retic ulocy te count panel Retic ulocy te count % 0.4 1.6 2.07 High FINAL Asim Clemensot a [facility], [address] [facility] [address] [place] [id number] 0 Phone: () - 05/01 Retic ulocy te count panel Immat ure retic ulocy te fract ion, % % 0.0 16.5 10.10 FINAL Asim baenrjee Oncology - [facility], [address] [place] [id number] 0 Phone: () - 05/01 Retic ulocy te count panel Retic ulocy te cellu lar hemog lobin pg 28.0 37.0 36.5 FINAL Asim banerjee Oncology - [facility], [address] [place] [address] [address] [place] [id number] 0 Phone: () - 05/01 Smear revie w panel CBC Smear revie w comme nts Large and-or giant platele ts present Atypica l (Reacti ve and/or Variant ) Lymphs present Abnor mal FINAL Asim banerjee Oncology - [facility], [address] [place] [phone] 0 Phone: () - 05/01 CBC w/ auto diff PLT K/uL 113.0 364.0 257 FINAL Asim banerjee Oncology - [facility], [address] [place] [id number] 0 Phone: () - 05/01 CBC w/ auto diff Dawna # (ANC) K/uL 1.6 6.6 2.2 FINAL Asim banerjee Oncology - [facility], [address] [place] [id number] 0 Phone: () - 05/01 CBC w/ auto diff Dawna % % 43.0 74.0 46.0 FINAL Asim banerjee Oncology - [facility], [address] [place] [address] [address] [place] [id number] 0 Phone: () - 05/01 CBC w/ auto diff IG % % 0.0 0.5 0.4 FINAL Asim banerjee Oncology - [facility], [address] [place] [address] [address] [place] [id number] 0 Phone: () - 05/01 CBC w/ auto diff IG # K/uL 0.0 0.03 0.02 FINAL Asim banerjee Oncology - [facility], [address] [place] [address] [address] [place] [id number] 0 Phone: () - 05/01 CBC w/ auto diff LY % % 14.0 41.0 38.7 FINAL Asim Clemensot a Oncology - [place], [address] [place] [address] 200 [place] [id number] 0 Phone: () - 05/01 CBC w/ auto diff MO % % 6.0 15.0 10.0 FINAL Asimmatt Clemensot a Oncology - [place], [address] [place] [address] 200 [place] [id number] 0 Phone: () - 05/01 CBC w/ auto diff EO % % 0.0 7.0 4.3 FINAL Asimmatt Clemensot a Oncology - [place] [facility], [address] [place] [id number] 0 Phone: () - 05/01 CBC w/ auto diff BA % % 0.0 2.0 0.6 FINAL Asim Clemensot a Oncology - [place], [address] 200 [facility] [place] [id number] 0 Phone: () - 05/01 CBC w/ auto diff LY # K/uL 0.4 3.6 1.9 FINAL Asimmatt Clemensot a Oncology - [place] [facility], [address] [place] [id number] 0 Phone: () - 05/01 CBC w/ auto diff MO # K/uL 0.2 1.3 0.5 FINAL Asim Clemensot a Oncology - [place] [facility], [address] [place] [address] 200 [place] [id number] 0 Phone: () - 05/01 CBC w/ auto diff EO # K/uL 0.0 0.6 0.2 FINAL Asimmatt Clemensot a Oncology - [place] [facility], [address] [place] [id number] 0 Phone: () - 05/01 CBC w/ auto diff BA # K/uL 0.0 0.2 0.0 FINAL Asimmatt Clemensot a Oncology - [place] [facility], [address] [place] [address] [address] [place] [id number] 0 Phone: () - 05/01 CBC w/ auto diff NRBC % #/100W BC 0.0 0.2 0.0 FINAL Asim banerjee Oncology - [place], [address] [place] [address] [address] [place] [id number] 0 Phone: () - 05/01 CBC w/ auto diff RBC M/uL 3.9 5.1 4.01 FINAL Asim banerjee Oncology - [place] [facility], [address] [place] [address] [address] [place] [id number] 0 Phone: () - 05/01 CBC w/ auto diff HCT % 35.0 48.0 36.8 FINAL Asim banerjee Oncology - [place] [facility], [address] [place] [address] [address] [place] [id number] 0 Phone: () - 05/01 CBC w/ auto diff MCV fL 80.0 104.0 91.8 FINAL Asim banerjee Oncology - [place] [facility], [address] [place] [address] [address] [place] [id number] 0 Phone: () - 05/01 CBC w/ auto diff MCH pg 26.0 35.0 31.2 FINAL Asim banerjee Oncology - [place], [address] [place] [address] [address] [place] [id number] 0 Phone: () - 05/01 CBC w/ auto diff MCHC g/dL 30.0 35.0 34.0 FINAL Asim banerjee Oncology - [place] [facility], [address] [place] [address] [address] [place] [id number] 0 Phone: () - 05/01 CBC w/ auto diff MPV fL 9.5 13.4 9.1 Low FINAL Asim banerjee Oncology - [place], [address] [place] [address] [address] [place] [id number] 0 Phone: () - 05/01 CBC w/ auto diff RDW % 11.4 16.1 13.90 FINAL Asim banerjee Oncology - [place] [facility], [address] [place] [address] [address] [place] [id number] 0 Phone: () - 05/01 CBC w/ auto diff Auto CBC comme nts Slide review to follow FINAL Asim banerjee Oncology - [place], [address] [place] [address] [address] [place] [id number] 0 Phone: () - 05/01 CBC w/ auto diff WBC K/uL 3.0 8.9 4.9 FINAL Asim banerjee [facility], [address] 200 [place] [id number] 0 Phone: () - 05/01 CBC w/ auto diff HGB g/dL 11.3 15.2 12.5 FINAL Asim banerjee [facility], [address] [place] [id number] 0 Phone: () - 05/01 CMP Album in g/dL 3.2 5.2 4.4 FINAL Asim banerjee [address] [id number] 0 Phone: () - 05/01 CMP Alkal ine phosp hatas e U/L 46.0 116.0 76 FINAL Asimmatt Clemens [place] [address] [id number] 0 Phone: () - 05/01 CMP ALT/S GPT U/L 7.0 40.0 12 FINAL Asimmatt Clemens[address] [place] [id number] 0 Phone: () - 05/01 CMP AST/S GOT U/L 13.0 40.0 16 FINAL Asimmatt Clemens [place] [address] [phone] 0 Phone: () - 05/01 CMP BUN mg/dL 9.0 23.0 19 FINAL Asimmatt Clemens [place] [address] [place] [phone] 0 Phone: () - 05/01 CMP Calci um mg/dL 8.7 10.4 9.4 FINAL Asimmatt banerjee [address] [place] [phone] 0 Phone: () - 05/01 CMP Chlor ray mmol/L 96.0 114.0 107 FINAL Asimmatt Clemens[address] [phone] 0 Phone: () - 05/01 CMP CO2 mmol/L 20.0 31.0 [address] [phone] 0 Phone: () - 05/01 CMP Creat inine mg/dL 0.5 1.2 0.[address] [id number] 0 Phone: () - 05/01 CMP GFR estim ate ml/min /1.73m ^2 97.0 GFR is calculate d using the CKD-EPI equation. FINAL [address] [phone] 0 Phone: () - 05/01 CMP Gluco se mg/dL 73.0 126.0 150 High FINAL [address] [id number] 0 Phone: () - 05/01 CMP Potas sium mmol/L 3.5 5.[address] [place] [id number] 0 Phone: () - 05/01 CMP Sodiu m mmol/L 136.0 145.[address] [id number] 0 Phone: () - 05/01 CMP Bilir ubin, total mg/dL 0.3 1.2 0.2 Low FINAL [address] [place] [id number] 0 Phone: () - 05/01 CMP Total prote in g/dL 5.7 8.[address] [place] [id number] 0 Phone: () - 06/19 Retic ulocy te count panel Retic ulocy te, absol [place] M/uL 0.02 0.08 0.08 FINAL [facility] lis, [address] [place] [id number] 0 Phone: () - 06/19 Retic ulocy te count panel Retic ulocy te count % 0.4 1.6 1.75 High FINAL Asim banerjee Oncology - [facility], [address] [place] [id number] 0 Phone: () - 06/19 Retic ulocy te count panel Immat ure retic ulocy te fract ion, % % 0.0 16.5 10.80 FINAL Asim banerjee [facility]cology - [place] [facility], [address] [place] [address] 200 [place] [id number] 0 Phone: () - 06/19 Retic ulocy te count panel Retic ulocy te cellu lar hemog lobin pg 28.0 37.0 34.6 FINAL Asim banerjee [facility]cology - [place], [address] 200 [place] [id number] 0 Phone: () - 06/19 CBC w/ auto diff WBC K/uL 3.0 8.9 8.7 FINAL Asim banerjee Oncology - [place] [facility], [address] [place] [id number] 0 Phone: () - 06/19 CBC w/ auto diff HGB g/dL 11.3 15.2 14.2 FINAL Asim banerjee Oncology - [place], [address] 200 [place] [id number] 0 Phone: () - 06/19 CBC w/ auto diff PLT K/uL 113.0 364.0 282 FINAL Asim banerjee Oncology - [facility], [address] [place] [id number] 0 Phone: () - 06/19 CBC w/ auto diff Dawna # (ANC) K/uL 1.6 6.6 4.9 FINAL Asim banerjee Oncology - [facility], [address] [place] [id number] 0 Phone: () - 06/19 CBC w/ auto diff Dawna % % 43.0 74.0 56.8 FINAL Asim banerjee Oncology - [facility], [address] [place] [id number] 0 Phone: () - 06/19 CBC w/ auto diff IG % % 0.0 0.5 0.5 FINAL Asim banerjee Oncology - [place], [address] [place] [id number] 0 Phone: () - 06/19 CBC w/ auto diff IG # K/uL 0.0 0.03 0.04 High FINAL Asim banerjee Oncology - [place], [address] [place] [address] 200 [place] [id number] 0 Phone: () - 06/19 CBC w/ auto diff LY % % 14.0 41.0 33.4 FINAL Asim banerjee [facility]cology - [place] [facility], [address] [place] [id number] 0 Phone: () - 06/19 CBC w/ auto diff MO % % 6.0 15.0 7.0 FINAL Asim banerjee Oncology - [place], [address] 200 [facility] [place] [phone] 0 Phone: () - 06/19 CBC w/ auto diff EO % % 0.0 7.0 1.8 FINAL Asim banerjee [facility]cology - [place], [address] [place] [id number] 0 Phone: () - 06/19 CBC w/ auto diff BA % % 0.0 2.0 0.5 FINAL Asim Eli a [facility]cology - [place] [facility], [address] [place] [id number] 0 Phone: () - 06/19 CBC w/ auto diff LY # K/uL 0.4 3.6 2.9 FINAL Asimmatt Eli a [facility]cology - [place] [facility], [facility] [address] [place] [id number] 0 Phone: () - 06/19 CBC w/ auto diff MO # K/uL 0.2 1.3 0.6 FINAL Asim Eli a Oncology - [place] [facility], [address] [place] [id number] 0 Phone: () - 06/19 CBC w/ auto diff EO # K/uL 0.0 0.6 0.2 FINAL Asim banerjee Oncology - [place] [facility], [address] [place] [address] [address] [place] [id number] 0 Phone: () - 06/19 CBC w/ auto diff BA # K/uL 0.0 0.2 0.0 FINAL Asim banerjee Oncology - [place] [facility], [address] [place] [address] [address] [place] [id number] 0 Phone: () - 06/19 CBC w/ auto diff NRBC % #/100W BC 0.0 0.2 0.0 FINAL Asim banerjee Oncology - [place] [facility], [address] [place] [address] [address] [place] [id number] 0 Phone: () - 06/19 CBC w/ auto diff RBC M/uL 3.9 5.1 4.67 FINAL Asim banerjee Oncology - [place] [facility], [address] [place] [address] [address] [place] [id number] 0 Phone: () - 06/19 CBC w/ auto diff HCT % 35.0 48.0 41.7 FINAL Asim banerjee Oncology - [place] [facility], [address] [place] [address] [address] [place] [id number] 0 Phone: () - 06/19 CBC w/ auto diff MCV fL 80.0 104.0 89.3 FINAL Asim banerjee Oncology - [place] [facility], [address] [place] [address] [address] [place] [id number] 0 Phone: () - 06/19 CBC w/ auto diff MCH pg 26.0 35.0 30.4 FINAL Asim banerjee Oncology - [place] [facility], [address] [place] [address] [address] [place] [id number] 0 Phone: () - 06/19 CBC w/ auto diff MCHC g/dL 30.0 35.0 34.1 FINAL Asim banerjee Oncology - [place] [facility], [address] [place] [address] [address] [place] [id number] 0 Phone: () - 06/19 CBC w/ auto diff MPV fL 9.5 13.4 8.8 Low FINAL Asim banerjee [facility] lis, [address] [place] [address] [address] [place] [id number] 0 Phone: () - 06/19 CBC w/ auto diff RDW % 11.4 16.1 13.10 FINAL Asim banerjee [facility], [address] [place] [address] [address] [place] [id number] 0 Phone: () - 06/19 LDH panel LDH U/L 120.0 246.0 246 FINAL Asim banerjee [facility], [address] [place] [address] [phone] 0 Phone: () - 06/19 CMP Album in g/dL 3.2 5.2 4.6 FINAL Asim banerjee [facility], [address] [facility] [address] [place] [address] [id number] 0 Phone: () - 06/19 CMP Alkal ine phosp hatas e U/L 46.0 116.0 91 FINAL Asim Clemens [place] [facility], [address] [place] [address] [id number] 0 Phone: () - 06/19 CMP ALT/S GPT U/L 7.0 40.0 27 [facility] [address] [facility] [address] [place] [address] [phone] 0 Phone: () - 06/19 CMP AST/S GOT U/L 13.0 40.0 34 FINAL [facility], [address] [facility] [address] [place] [address] [phone] 0 Phone: () - 06/19 CMP BUN mg/dL 9.0 23.0 11 FINAL Asim Clemens lav[place] [facility] [address] [facility] [address] [place] [address] [id number] 0 Phone: () - 06/19 CMP Calci um mg/dL 8.7 10.4 9.4 FINAL Asim banerjee [facility], [address] [place] [address] [id number] 0 Phone: () - 06/19 CMP Chlor ray mmol/L 96.0 114.0 107 FINAL Asim [facility], [address] [facility] [address] [facility] [id number] 0 Phone: () - 06/19 CMP CO2 [...] the 96 hour stability window. FINAL Asim [facility], [address] [phone] 0 Phone: () - 06/19 CMP Creat inine mg/dL 0.5 1.2 0.68 [facility] [address] [id number] 0 Phone: () - 06/19 CMP GFR estim ate ml/min /1.73m ^2 103.9 GFR is calculate d using the CKD-EPI equation. FINAL [place] [address] [phone] 0 Phone: () - 06/19 CMP Gluco se mg/dL 73.0 126.0 95 [facility] [address] [facility] [address] [id number] 0 Phone: () - 06/19 CMP Potas sium mmol/L 3.5 5.1 4.1 [facility] [address] [facility] [address] [id number] 0 Phone: () - 06/19 CMP Sodiu m mmol/L 136.0 145.0 140 [facility] [address] [facility] [address] [phone] 0 Phone: () - 06/19 CMP Bilir ubin, total mg/dL 0.3 1.2 0.2 Low [facility], [address] [facility] [address] [id number] 0 Phone: () - 06/19 CMP Total prote in g/dL 5.7 8.2 6.9 FINAL Asim [facility]ius [facility] [place], [address] [facility] [id number] 0 Phone: () - 06/19 Path perip heral blood slide revie w panel Patho logy/ Cytol ogy Morph ology SEE RESULTS BELOW CASE REPORTSpe cial Hematolog y Report Case: [id number] ing Provider: Asim Cornelius MD Collected :06/19/20 21 1340Order ing Location: [facility] Received: 1 1734Patho logist: Elvie Hernández MDSpecime n: BloodFINA L DIAGNOSIS PERIPHERA L BLOOD:1. Negative for circulati ng blasts2. Within normal limitsEle ctronical ly signed by Elvie Hernández MD on 06/20/2021 at 1:03 PMCOMMENT This case was also reviewed by Mis hill MT, MS ([facility]).CL INICAL INFORMATI ONThe patient is a 46-year-o ld female with a history of acute lymphoid leukemia. 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 Staging bone marrow biopsy was negative forlympho ma ([id number]) . Her most recent periphera l blood morpholog y 2019 ([id number] ,05/01/2020 ) was negative for circulati ng [...] blood smear.ADD ITIONAL INFORMATI ONInterpr eted at [facility] - [address], [place], [place] [address]Uzzn Performed by:[facility] - [place], [place] [address]Appq e : FINAL Asim Cornelius 01/19 [facility] See menswear salesperson d 05/01 [facility] See menswear salesperson d 05/06 LDH panel LDH U/L 120.0 246.0 191 FINAL Deepthi Barrazayobany [facility], [address] [place] [phone] 0 Phone: () - 05/06 CMP Album in g/dL 3.2 5.2 4.7 FINAL Deepthi Steelsalimayobany ClemensN[facility], [address] [place] [id number] 0 Phone: () - 05/06 CMP Alkal ine phosp hatas e U/L 46.0 116.0 73 FINAL Deepthi Steelshannon SarathNortheast [facility], [address] [id number] 0 Phone: () - 05/06 CMP ALT/S GPT U/L 7.0 40.0 19 FINAL Deepthi banerjee [place] [address] [id number] 0 Phone: () - 05/06 CMP AST/S GOT U/L 13.0 40.0 21 FINAL Deepthi [place] [address] [id number] 0 Phone: () - 05/06 CMP BUN mg/dL 9.0 23.0 16.0 FINAL Deepthi Dodge [place] [address] [id number] 0 Phone: () - 05/06 CMP Calci um mg/dL 8.7 10.4 9.8 FINAL Deepthi Dodge [place] [address] [id number] 0 Phone: () - 05/06 CMP Chlor ray mmol/L 96.0 114.0 107 FINAL Deepthi Steelyobany [place] [address] [phone] 0 Phone: () - 05/06 CMP CO2 [...] the 96 hour stability window. FINAL Deepthi [place] [address] [id number] 0 Phone: () - 05/06 CMP Creat inine mg/dL 0.5 1.2 0.80 FINAL Deepthi Dodge [place] [address] [address] [facility] [address] [phone] 0 Phone: () - 05/06 CMP GFR estim ate ml/min /1.73m ^2 90.1 GFR is calculate d using the CKD-EPI equation. FINAL Deepthi Clemens [place] [facility], [address] [id number] 0 Phone: () - 05/06 CMP Gluco se mg/dL 73.0 126.0 128 High FINAL [facility], [address] [id number] 0 Phone: () - 05/06 CMP Potas sium mmol/L 3.5 5.1 3.9 FINAL [facility], [address] [id number] 0 Phone: () - 05/06 CMP Sodiu m mmol/L 136.0 145.0 142 FINAL [facility], [address] [id number] 0 Phone: () - 05/06 CMP Bilir ubin, total mg/dL 0.3 1.2 0.2 Low FINAL [facility], [address] [id number] 0 Phone: () - 05/06 CMP Total prote in g/dL 5.7 8.2 7.1 FINAL Deepthi Dodge [facility], [address] [id number] 0 Phone: () - 05/06 Retic ulocy te count panel Retic ulocy te, absol [place] M/uL 0.02 0.08 0.07 FINAL Deepthi Dodge [facility], [address] [place] [address] 200 [facility] [id number] 0 Phone: () - 05/06 Retic ulocy te count panel Retic ulocy te count % 0.4 1.6 1.60 FINAL Deepthi Dodge [facility], [address] [place] [address] 200 [facility] [phone] 0 Phone: () - 05/06 Retic ulocy te count panel Immat ure retic ulocy te fract ion, % % 0.0 16.5 9.70 FINAL Deepthi banerjee Oncology - [facility], [address] [place] [address] [address] [place] [id number] 0 Phone: () - 05/06 Retic ulocy te count panel Retic ulocy te cellu lar hemog lobin pg 28.0 37.0 33.0 FINAL Deepthi banerjee Oncology - [facility], [address] [place] [address] [address] [place] [id number] 0 Phone: () - 05/06 CBC w/ auto diff WBC K/uL 3.0 8.9 8.4 FINAL Deepthi Clemens [place] [facility] - [facility], [address] [place] [id number] 0 Phone: () - 05/06 CBC w/ auto diff HGB g/dL 11.3 15.2 13.6 FINAL Deepthi Clemens [place] [facility], [address] [place] [id number] 0 Phone: () - 05/06 CBC w/ auto diff PLT K/uL 113.0 364.0 266 FINAL Deepthi Clemens lav[place] [facility] - [facility], [address] [place] [id number] 0 Phone: () - 05/06 CBC w/ auto diff Dawna # (ANC) K/uL 1.6 6.6 3.9 FINAL Deepthi Clemens [place] [facility], [address] [place] [address] [address] [place] [id number] 0 Phone: () - 05/06 CBC w/ auto diff Dawna % % 43.0 74.0 46.7 FINAL Deepthi banerjee [facility]cology - [facility], [address] [place] [address] [address] [place] [id number] 0 Phone: () - 05/06 CBC w/ auto diff IG % % 0.0 0.5 0.5 FINAL Deepthi Clemens [place] [facility] - [facility], [address] [place] [address] [address] [place] [id number] 0 Phone: () - 05/06 CBC w/ auto diff IG # K/uL 0.0 0.03 0.04 High FINAL Deepthi banerjee [facility] - [place], [address] [place] [address] [address] [place] [id number] 0 Phone: () - 05/06 CBC w/ auto diff LY % % 14.0 41.0 44.8 High FINAL Deepthi banerjee [facility] - [place], [address] [place] [address] [address] [place] [id number] 0 Phone: () - 05/06 CBC w/ auto diff MO % % 6.0 15.0 6.2 FINAL Deepthi Eli a [facility] - [place], [address] [place] [address] [address] [place] [id number] 0 Phone: () - 05/06 CBC w/ auto diff EO % % 0.0 7.0 1.4 FINAL Deepthi Eli a [facility] - [place], [address] [place] [address] [address] [place] [id number] 0 Phone: () - 05/06 CBC w/ auto diff BA % % 0.0 2.0 0.4 FINAL Deepthi Eli a [facility] - [place], [address] [place] [address] [address] [place] [id number] 0 Phone: () - 05/06 CBC w/ auto diff LY # K/uL 0.4 3.6 3.8 High FINAL Deepthi Eli a [facility] - [place], [address] [place] [address] [address] [place] [id number] 0 Phone: () - 05/06 CBC w/ auto diff MO # K/uL 0.2 1.3 0.5 FINAL Deepthi banerjee [facility] - [place], [address] [place] [address] [address] [place] [id number] 0 Phone: () - 05/06 CBC w/ auto diff EO # K/uL 0.0 0.6 0.1 FINAL Deepthi banerjee [facility] - [place], [address] [place] [address] [address] [place] [id number] 0 Phone: () - 05/06 CBC w/ auto diff BA # K/uL 0.0 0.2 0.0 FINAL Deepthi banerjee [facility] - [place], [address] [place] [address] [address] [place] [id number] 0 Phone: () - 05/06 CBC w/ auto diff NRBC % #/100W BC 0.0 0.2 0.0 FINAL Deepthi banerjee [facility] - [facility], [address] [place] [address] [address] [place] [id number] 0 Phone: () - 05/06 CBC w/ auto diff RBC M/uL 3.9 5.1 4.57 FINAL Deepthi banerjee [facility] - [facility], [address] [place] [address] [address] [place] [id number] 0 Phone: () - 05/06 CBC w/ auto diff HCT % 35.0 48.0 40.7 FINAL Deepthi banerjee [facility] - [facility], [address] [place] [address] [address] [place] [id number] 0 Phone: () - 05/06 CBC w/ auto diff MCV fL 80.0 104.0 89.1 FINAL Deepthi banerjee [facility] - [facility], [address] [place] [address] [address] [place] [id number] 0 Phone: () - 05/06 CBC w/ auto diff MCH pg 26.0 35.0 29.8 FINAL Deepthi banerjee [facility] - [facility], [address] [place] [id number] 0 Phone: () - 05/06 CBC w/ auto diff MCHC g/dL 30.0 35.0 33.4 FINAL Deepthi banerjee Oncology - [facility], [address] [place] [address] [address] [place] [id number] 0 Phone: () - 05/06 CBC w/ auto diff MPV fL 9.5 13.4 9.3 Low FINAL Deepthi banerjee Oncology - [facility], [address] [place] [address] [address] [place] [id number] 0 Phone: () - 05/06 CBC w/ auto diff RDW % 11.4 16.1 13.60 FINAL Deepthi banerjee Oncology - [facility], [address] [facility] [id number] 0 Phone: () - Medications Date Name [...]
== END 2025-03-02 10:10 | disposition home or self-care (01) ==
LOC: ED 10:11
PROVIDERS: Emergency Provider Emergency Medicine
DX: Z71.1 Person with feared health complaint in whom no diagnosis is made (principal)
CPT/HCPCS: 99281; 99282; 99283

== ENCOUNTER 2025-09-08 12:33 | Emergency (ER) | payer MEDICAID, SELFPAY ==
--- OUTSIDE RECORDS SUMMARY | 2018-11-09 05:02 | XMS_ITS | Continuity of Care Document ---
Author Organization [facility] Address [address] [address] [place] [address] Phone Care Team Providers Care Ledge Man Name Role Phone Siva Rosenberg MD Unavailable Unavailable Allergies, Adverse Reactions, Alerts Substance Reaction Status Criticality No Known allergies Medications Medication Instructions Dosage Effective Dates (start - stop) Status Comments Zegerid 40 mg-1.1 gram Cap take 1 capsule (40MG) by ORAL route every day - Active Mirapex 0.25 mg Tab Take one tablet by mouth every bedtime - Active Procedures Procedure Date Ugi Endo; W/bx 1/mx Level Iv-surg Path Gross/micro 12 Ugi Endo; Dx W/wo Collec Specm 11 Ugi Endo; W/ablat Les Not Snar 10 Ugi Endo; W/bx 1/mx Level Iv-surg Path Gross/micro 10 Offic/outpt E&m Estab Mod-hi 2 09 [id number] Ugi Endo; W/bx 1/mx Level Iv-surg Path Gross/micro 08 Esophagoscopy; W/ablat Tumr-no 08 Offic/outpt E&m Estab Mod-hi 2 08 Offic Cons New/estab Mod-hi 60 07 Ugi Endo; W/bx 1/mx Advance Directives Directive Yes / No Effective Date File Name No Information Encounters Encounter Description Practice Location Reason(s) For Visit Diagnoses Date Provider Providers Copied on Encounter [facility], [address] [address], [place], [id number], [place] [phone] [place] [address] No Information 8 Chet Paniagua. [address] [facility], [address], [id number], [place]. tel: [phone] [facility], [address] [address], [place], [id number], [place] tel:[phone] [place] [address] No Information 3 Chet Paniagua. [address] [place] [address], [address], [id number], [place]. tel: [phone] [facility], [address] [address], [place], [id number], [place] tel:[phone] [place] [address] [facility] Berumen's EsophagusPost -op Aftercare NecDysphagia, UnspecifiedBa rrett's EsophagusDysp hagia, UnspecifiedDy sphagia, Unspecified 2 Chet Paniagua. [address] [facility], [address], [id number], [place]. tel: [phone] [facility], [address] [address], [place], [id number], [place] tel:[phone] [facility] Post-op Aftercare NecPost-op Aftercare NecBarrett's Esophagus Jan-2 1 Compa Sosa. [address] [facility], [facility] [address], [place], [place], [id number], [place]. tel:[phone] [facility], [address] [address], [place], [id number], [place] tel:[phone] [facility] Berumen's EsophagusGast ritis W/o BleedBarrett' s EsophagusGast ritis W/o Bleed Jan-0 0 Chet Paniagua. [address] [facility], [facility] [address], [place], [place], [id number], [place]. tel:[phone] Offic/outpt E&m Estab Mod-hi 2 [facility], [address] [address], [place], [id number], [place] tel:[phone] [facility] Abdominal pain (chief complaint)P ainful swallowing (chief complaint) Psychogenic Gi DiseaseAcute Pharyngitis 9 Compa Sosa. [address] [facility], [facility] [address], [place], [id number], [place]. tel:[phone] [facility], [address] [address], [place], [id number], [place] tel:[phone] [facility] Hiatal HerniaBarrett 's EsophagusHiat al Hernia 8 Chet Paniagua. [address] [facility], [facility] [address], [place], [id number], [place]. tel:[phone] Referring Provider: Siva Bullock, [address] [facility] [address], [place], [address] . tel:[phone] [facility], [address] [address], [place], [place], [id number], [place] tel:[phone] [facility] No Information 8 Chet Paniagua. [address] [facility], [facility] [address], [place], [place], [id number], [place]. tel:[phone] Referring Provider: Kelley Bullock, [address] [place], [address]. tel:[phone] Offic/outpt E&m Estab Mod-hi 2 [facility], [address] [address], [place], [place], [id number], [place] tel:[phone] [facility] [address] Heartburn 6200 8 Pretty Prado. [address] [facility], [facility] [address], [place], [place], [id number], [place]. tel:[phone] Referring Provider: Siva Bullock, [address] [facility] [address], [place], [address] . tel:[phone] Offic Cons New/estab Mod-hi 60 [facility], [address] [address], [place], [place], [id number], tel:[phone] [facility] [address] Berumen's Esophagus 7 Chet Paniagua. [address] [facility], [address], [place], [place], [id number], [place]. tel:[phone] Referring Provider: Kelley Bullock, [address] [place], [address]. tel:[phone] [facility]AN, [address] [address], [place], [place], [id number], tel:[phone] [place] [facility] Berumen's EsophagusDysp hagia 6 No Information Referring Provider: Kelley Bullock, [address] [place], [address]. tel:[phone] Family History Family Member Type Diagnosis Age At Onset First degree family history Problem (finding) No Family history of No history of Cancer, colon First degree family history Problem (finding) alcoholism First degree family history Problem (finding) No history of Ulcerative Colitis First degree family history Problem (finding) No history of Crohn's First degree family history Problem (finding) Thyroid Disorder First degree family history Problem (finding) GERD First degree family history Problem (finding) Irritable bowel disease First degree family history Problem (finding) Colon Polyps 41 First degree family history Problem (finding) peptic ulceration Payers Payer name Insurance type Covered alliance party ID Authoriza tion(s) No Information Social History Type Description Quantity Date Captured Comments Sex Female Smoking Status No Information Chief Complaint And Reason For Visit No Information Reason For Referral Reason For Referral No Information History Of Present Illness Encounter Date Complaint History Of Prese nt Illness No Information Functional Status Date Functional Assessmen t No Information Instructions Date Instruction Additional Infor mation No Information Assessments Type Assessment Date No Information Patient Care Teams Name Effective Dates (start - stop) Status Members No Information
--- OUTSIDE RECORDS SUMMARY | 2025-09-08 12:37 | XMS_ITS | Clinical Summary ---
Author Organization [facility] Address [address] [place] [id number] Care Team Providers Care Functional Support Analyst Name Role Phone Wilfredo Ellis MD Primary Care Provider Unavail able Allergies Active Allergy Reactions Criticality Noted Date Comments Adhesive *Unknown 05/06/2023 Escitalopram Seizures 04/25/2008 Medications acetaminophen (TYLENOL EXTRA [...] hours if needed. 1 Inhaler 9 Active Additional Information Patient not taking.Reported on 08/17/2025 Active Problems Problem Noted Date Diagnosed Date [...] Date Resolved Date Tobacco use 04/05/2019 11/17/2019 Encounters Date Type Department Care Team Description 08/17/2025 6:39 PM CDT - 08/17/2025 8:30 PM CDT Emergency [facility] Emergency Department [address] [place] [address] Quinn Freeman MD Penetrating abdominal trauma, initial encounter (Primary Dx) Discharge Disposition: Home Self Care 08/17/2025 11:55 AM CDT Office Visit [facility] [place] [address] [place] [address] Rika Myers PA Concerns (Happened two days ago- hole in stomach, possibly infected) 08/17/2025 Travel from Last 3 Months Immunizations Immunization Administration Dates Next Due TD, UNSPECIFIED 05/07/2002 Td (Age >=7 Years) 05/07/2002 Tdap 08/17/2025 Family History Medical History Relation Name Comments [...] drink = 0.6 oz pur e alcohol) Social Connections Answer Date Recorded Do you often feel lonely or isolated from those around you? 0 08/17/2025 Alcohol Use Answer Date Recorded How often do you have a drink containing alcohol ? 0 08/17/2025 How many drinks containing a lcohol do you have on a typical day when you are drinking? 0 08/17/2025 How often do you have five or more drinks on one occasion? 0 08/17/2025 Financial Resource Strain Answer Date R ecorded Difficulty of Paying Living Expenses 3 08/17/2025 Difficulty of Paying Living Expenses Not on file 08/17/2025 Food Insecurity Answer Date Recorded Do you worry your food will run out before you are able to buy more? 1 08/17/2025 Transportation Needs Answer Date Record ed Does lack of transportation keep you from medica l appointments? 1 08/17/2025 Does lack of transportation keep you from work, meetings or getting things that you need? 1 08/17/2025 Housing Stability Answer Date Recorded What is your housing situation today? 1 08/17/2025 Utilities Answer Date Recorded Do you have trouble paying f or utilities (for example, heat, electricity, water, phone)? 1 08/17/2025 Comments No Sex and Gender Information Value Date Recorded Sex Assigned at Not on file Legal Sex Female 6:48 AM FORESTER AIDE Gender Identity Not on file Sexual Orientation Not on file Obstetrics History Last Filed Vital Signs Vital Sign Reading Time Taken Comments Blood Pressure 128/87 08/17/2025 5:44 PM CDT Pulse 87 08/17/2025 5:44 PM CDT Temperature 36.9 C (98.5 F) 08/17/2025 5:44 PM CDT Respiratory Rate 18 08/17/2025 5:44 PM CDT Oxygen Saturation 96% 08/17/2025 5:44 PM CDT Inhaled Oxygen Concentration - - Weight 79.2 kg (174 lb 9.6 oz) 08/17/2025 5:44 P M CDT Height 157.5 cm (5' 2) 08/17/2025 5:44 PM CDT Body Mass Index 31.93 08/17/2025 5:44 PM CDT Plan of Treatment Health Maintenance Due Date Last Done Comments Depression screening for age 12+ 1986 Hepatitis C screening for age 18-79 02/08/1992 Hepatitis B series for 19+ ( 1 of 3 - 19+ 3-dose series) 1993 Pneumococcal series for age 50+ (1 of 2 - PCV) 1993 Zoster (shingles) series for age 50+ (1 of 2) 1993 Pap test for age 21-65 1995 Colonoscopy through age 75 2019 Lipids for age 45-75 2019 Mammogram for age 45-75 2019 01/15/2015 COVID-19 vaccine series ( - 2023- season) 2025 Influenza Vaccine (#1) 2025 BMI (ht and wt on same day) for age 18+ 08/17/2026 08/17/2025, 05/11/2023 Tetanus booster 08/17/2035 08/17/2025, 04/23, 05/07/2002 RSV vaccine for adults or pr egnancy (1 - 1-dose 75+ series) 2049 HIV for age 15-65 Completed 05/03/2019 Procedures Procedure Name Priority Date/Time Associated Diagnosis Comments CT ABDOMEN PELVIS W STAT 08/17/2025 7 :36 PM CDT BASIC METABOLIC PANEL STAT 08/17/2025 7:00 PM CDT CBC W PLT NO DIFF STAT 08/17/2025 7:0 0 PM CDT ANTI HIV 1/2 BARRON 05/03/2019 4:26 AM CDT XR MAMMO BILAT SCREEN FFDM (IA) Routine 01/15/2015 11:43 AM FORESTER AIDE Other screening mammogram from Last 3 Months or Most Recently Relevant to Health Maintenance Results * CT Abdomen Pelvis w IV (Oral Contrast NO) (08/17/2025 7:36 PM CDT) Anatomical Region Laterality Modality Abdomen, Pelvis, AORTA, LIVER, SPLEEN Computed Tomography 08/17/2025 8:10 PM CDT Impressions 08/17/2025 8:10 PM CDT 1. Tiny focus of subcutaneous fat stranding in the left lateral abdominal wall could potentially represent the site of trauma. No soft tissue gas or suspicious fluid collection. 2. Small to moderate hiatal hernia. The stomach is distended with fluid and food material. 3. Possible nonspecific enteritis changes involving loops of proximal to mid small bowel. 4. No other acute findings in the abdomen or pelvis. Please note that all CT scans at this facility use dose modulation, iterative reconstruction, and/or weight-based dosing when appropriate to reduce radiation dose to as low as reasonably achievable. Dictated by Olya Munoz MD @ 08/17/2025 8:10:42 PM (Electronically Signed) Narrative 08/17/2025 8:10 PM CDT For Patients: As a result of the Cures Act, medical imaging exams and procedure reports are released immediately into your electronic medical record. You may view this report before your referring provider. If you have questions, please contact your health care provider. INDICATION: Penetrating trauma left lower quadrant 2 days. Left lower quadrant impaled by dumpster part. History of a ALL. TECHNIQUE: CT of the abdomen and pelvis acquired with 100 cc Omnipaque 350 IV contrast. Coronal and sagittal reconstructions. COMPARISON: CT of the abdomen and pelvis 04/05/2019. PET-CT 05/02/2020. FINDINGS: Lower chest: The lung bases are clear. Stable calcific density along the right lower heart border. Liver: Normal in size and attenuation. Focal fatty infiltration adjacent to the falciform ligament. Subcentimeter hypodense lesion in the right hepatic dome is too small to characterize but likely benign. Gallbladder and bile ducts: Cholecystectomy. Mild prominence of the common bile duct is likely related to post cholecystectomy state. Spleen: Unremarkable. Normal in size. Pancreas: Unremarkable. Adrenal glands: Unremarkable. Kidneys, Ureters, and Bladder: Symmetric enhancement. No hydronephrosis. No obstructing urinary calculi. No significant bladder wall thickening. Reproductive organs: Hysterectomy. GI tract/Peritoneum: Small to moderate hiatal hernia. The stomach is distended with fluid and food material. No small bowel dilation. Mild wall thickening of multiple proximal to mid small bowel loops. Moderate stool burden. Colonic diverticulosis without evidence of diverticulitis. Negative appendix. No intraperitoneal free air or fluid. Vasculature: Abdominal aorta is normal in caliber. Aortoiliac vascular calcifications. Mesenteric arteries appear patent. Lymph nodes: No lymphadenopathy. Abdominal Wall: Fat containing infraumbilical ventral hernia. Tiny focus of subcutaneous fat stranding in the left lateral abdominal wall could potentially represent the site of trauma (series 2, image 88). No soft tissue gas or suspicious fluid collection. Bones: Mild degenerative changes of the spine chronic compression fractures of T11, L1, and L3. Old fracture of the left L2 transverse process. No acute fracture identified. Procedure Note Olya Munoz MD - 08/17/2025 For Patients: As a result of the Cures Act, medical imagingexams and procedure reports are released immediately into your electronicmedical record. You may view this report before your referring provider.If you have questions, please contact your health care provider. INDICATION: Penetrating trauma left lower quadrant 2 days. Left lower quadrant impaledby dumpster part. History of a ALL. TECHNIQUE: CT of the abdomen and pelvis acquired with 100 cc Omnipaque 350 IVcontrast. Coronal and sagittal reconstructions. COMPARISON: CT of the abdomen and pelvis 04/05/2019. PET-CT 05/02/2020. FINDINGS: Lower chest: The lung bases are clear. Stable calcific density along theright lower heart border. Liver: Normal in size and attenuation. Focal fatty infiltration adjacentto the falciform ligament. Subcentimeter hypodense lesion in the righthepatic dome is too small to characterize but likely benign. Gallbladder and bile ducts: Cholecystectomy. Mild prominence of the commonbile duct is likely related to post cholecystectomy state. Spleen: Unremarkable. Normal in size. Pancreas: Unremarkable. Adrenal glands: Unremarkable. Kidneys, Ureters, and Bladder: Symmetric enhancement. No hydronephrosis.No obstructing urinary calculi. No significant bladder wall thickening. Reproductive organs: Hysterectomy. GI tract/Peritoneum: Small to moderate hiatal hernia. The stomach isdistended with fluid and food material. No small bowel dilation. Mild wallthickening of multiple proximal to mid small bowel loops. Moderate stoolburden. Colonic diverticulosis without evidence of diverticulitis.Negative appendix. No intraperitoneal free air or fluid. Vasculature: Abdominal aorta is normal in caliber. Aortoiliac vascularcalcifications. Mesenteric arteries appear patent. Lymph nodes: No lymphadenopathy. Abdominal Wall: Fat containing infraumbilical ventral hernia. Tiny focusof subcutaneous fat stranding in the left lateral abdominal wall couldpotentially represent the site of trauma (series 2, image 88). No softtissue gas or suspicious fluid collection. Bones: Mild degenerative changes of the spine chronic compressionfractures of T11, L1, and L3. Old fracture of the left L2 transverseprocess. No acute fracture identified. IMPRESSION: 1. Tiny focus of subcutaneous fat stranding in the left lateral abdominalwall could potentially represent the site of trauma. No soft tissue gas orsuspicious fluid collection. 2. Small to moderate hiatal hernia. The stomach is distended with fluidand food material. 3. Possible nonspecific enteritis changes involving loops of proximal tomid small bowel. 4. No other acute findings in the abdomen or pelvis. Please note that all CT scans at this facility use dose modulation,iterative reconstruction, and/or weight-based dosing when appropriate toreduce radiation dose to as low as reasonably achievable. Dictated by Olya Munoz MD @ 08/17/2025 8:10:42 PM (Electronically Signed) us Quinn Freeman MD CT Natali l Result * CBC W PLT NO DIFF (08/17/2025 7:00 PM CDT) WHITE BLOOD COUNT 8.3 4.5 - 11.0 thou/cu mm 08/17/2025 7:26 PM CDT [facility] RED BLOOD COUNT 4.68 4.00 - 5.20 mil/cu mm 08/17/2025 7:26 PM CDT [facility] HEMOGLOBIN 13.7 12.0 - 16.0 g/dL 08/17/2025 7:26 PM CDT [facility] HEMATOCRIT 41.4 33.0 - 51.0 % 08/17/2025 7:26 PM CDT [facility] MCV 89 80 - 100 fL 08/17/2025 7:26 PM CDT [facility] MCH 29.3 26.0 - 34.0 pg 08/17/2025 7:26 PM CDT [facility] MCHC 33.1 32.0 - 36.0 g/dL 08/17/2025 7:26 PM CDT [facility] RDW 13.1 11.5 - 15.5 % 08/17/2025 7:26 PM CDT [facility] PLATELET COUNT 254 140 - 440 thou/cu mm 08/17/2025 7:26 PM CDT [facility] MPV 10.5 6.5 - 11.0 fL 08/17/2025 7:26 PM CDT [facility] NRBC 0.0 % 08/17/2025 7:26 PM CDT [facility] ABS NRBC 0.0 thou /cu mm 08/17/2025 7:26 PM CDT [facility] Blood BLOOD SPECIMEN / Unknown IV Start / Unknown 08/17/2025 7:00 PM CDT 08/17/2025 7:08 PM CDT us Quinn Freeman MD HEMATOLOGY Natali l Result [facility] [address] [place] [id number], * (ABNORMAL) BASIC METABOLIC PANEL (08/17/2025 7:00 PM CDT) SODIUM 141 136 - 145 mmol/L 08/17/2025 7:35 PM CDT [facility] POTASSIUM 3.8 3.5 - 5.1 mmol/L 08/17/2025 7:35 PM CDT [facility] CHLORIDE 105 98 - 107 mmol/L 08/17/2025 7:35 PM CDT [facility] CO2,TOTAL 25 22 - 29 mmol/L 08/17/2025 7:35 PM CDT [facility] ANION GAP 11 5 - 18 08/17/2025 7:35 PM CDT [facility] GLUCOSE 138(H) 70 - 99 mg/dL 08/17/2025 7:35 PM CDT [facility] CALCIUM 9.3 8.8 - 10.4 mg/dL 08/17/2025 7:35 PM CDT [facility] Comment: Reference ranges for this test were updated on 09/27/2024 to reflect our healthy population more accurately. Reference range changes are not retroactively applied to results, but previous results using the same methodology can be interpreted in the context of the new reference range. BUN 17 6 - 20 mg/dL 08/17/2025 7:35 PM CDT [facility] CREATININE 0.82 0.50 - 0.90 mg/dL 08/17/2025 7:35 PM CDT [facility] BUN/CREAT RATIO 21(H) 10 - 20 7:35 PM CDT [facility] eGFR 87(L) >90 mL/min/1. 73m2 08/17/2025 7:35 PM CDT [facility] Comment:As of 2022, eG FR is calculated by the CKD-EPI creatinine equation without race adjustment. eGFR can be influenced by muscle mass, exercise, and diet. The reported eGFR is an estimation only and is only applicable if the renal function is stable. Blood BLOOD SPECIMEN / Unknown IV Start / Unknown 08/17/2025 7:00 PM CDT 08/17/2025 7:09 PM CDT us Quinn Freeman MD CHEMISTRY Natali l Result [facility] [address] [place] [address], * ANTI HIV 1/2 (05/03/2019 4:26 AM CDT) HIV-1/HIV-2 ANTIBODY Non-Reacti ve Non-Reacti ve 05/03/2019 7:15 PM CDT [facility] Comment:HIV-1 p24 and HIV-1/ HIV-2 Ab not detected. Blood BLOOD SPECIMEN / Unknown Non-Lab Venipuncture / Unknown 05/03/2019 4:26 AM CDT 05/03/2019 4:32 AM CDT us Lili Christopher MD SEND OUTS Final Result [facility] [address] [place] [address], [place] * XR MAMMO BILAT SCREEN FFDM (01/15/2015 11:43 AM FORESTER AIDE) Anatomical Region Laterality Modality BREASTS, Breast Left, Breast Right Bilateral Mammography Impressions 01/15/2015 3:29 PM FORESTER AIDE There is no radiographic evidence for malignancy. Recommend annual mammograms. A lay language report of this examination will be provided to the patient. MAMMOGRAM ASSESSMENT: ACR 1 Negative Narrative 01/15/2015 3:29 PM FORESTER AIDE XR MAMMO BILAT SCREEN FFDM [G0202.0] CLINICAL [...] the patient. MAMMOGRAM ASSESSMENT: ACR 1 Negative us Wilfredo Ellis MD MAMMO Final Result from Last 3 Months or Most Recently Relevant to Health Maintenance Insurance MEDICAID Advance Directives * Full Code (Latest Code [...] 12:26 PM 07/19/2019 2:38 PM Care Teams Functional Support Analyst Relationship Specialty Start Date End Date Wilfredo Ellis MD PCP - General 04/25/08
[2025-09-08 12:47] VITALS: BP 174/105; PULSE 88; RESP 16; TEMP 36.9; O2SAT 94; BMI 31.9
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
--- OUTSIDE RECORDS SUMMARY | 2025-09-08 13:09 | XMS_ITS ---
Author Name Interface, [id number] lity Address [address] [place] [address] [address] [address] [facility] Oncology Address [address] [place] [id number] Allergies and Adverse Reactions Medication/Group Name Reaction [...] ARM DRAW - 16 ARM DRAW 06/19/2021 LAB_ORDER CMP 06/19/2021 LAB_ORDER CBC w/ auto diff 06/19/2021 LAB_ORDER LDH panel 06/19/2021 LAB_ORDER Path peripheral blood slide review panel 06/19/2021 LAB_ORDER Reticulocyte cou nt panel 09/20/2021 LAB_ORDER CBC w/ auto diff 05/06/2023 LAB_ORDER Reticulocyte cou nt panel 05/06/2023 LAB_ORDER CMP 05/06/2023 LAB_ORDER CBC w/ auto diff 05/06/2023 LAB_ORDER LDH panel 05/09/2024 LAB_ORDER CBC w/ auto diff 05/09/2024 LAB_ORDER CMP 05/09/2024 LAB_ORDER LDH panel Reason for Visit LAB 15 MIN Encounters Date Name 06/19/2021 Acute lymphoid leuke abril, disease (disorder) 06/19/2021 Acute lymphoid leuke abril, disease (disorder) Diagnostic Results Date Type Test Units Lower Limit Upper Limit Result Flag Comments Status Ordered By Specimen Source Lab Address 06/19 LDH panel LDH U/L 120.0 246.0 246 FINAL [facility] [place], [address] [facility] [phone] Phone: () - 06/19 Path perip heral blood slide revie w panel Patho logy/ Cytol ogy Morph ology SEE RESULTS BELOW CASE REPORTSpe cial Hematolog y Report Case: [id number] ing Provider: Asim Cornelius MD Collected :06/19/20 21 1340Order ing Location: [facility] Received: 1 1734Patho logist: [...] 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 Staging bone marrow biopsy was negative forlympho ma ([id number]) . Her most recent periphera l blood morpholog y 2019 ([id number] ,05/01/2020 ) was negative for circulati ng [...] blood smear.ADD ITIONAL INFORMATI ONInterpr eted at [facility] - [address], [place], [place] [address]Lzhb Performed by:[facility] - [place], [place] [address]Tjjh e [phone] FINAL Asim Cornelius 06/19 CBC w/ auto diff WBC K/uL 3.0 8.9 8.7 FINAL Asim Clemens a Oncology - [facility] lis, [address] [place] [phone] 0 Phone: () - 06/19 CBC w/ auto diff HGB g/dL 11.3 15.2 14.2 FINAL Asim Clemensot a Oncology - [facility], [address] [place] [id number] 0 Phone: () - 06/19 CBC w/ auto diff PLT K/uL 113.0 364.0 282 FINAL Asim Clemensot a Oncology - [facility], [address] [place] [id number] 0 Phone: () - 06/19 CBC w/ auto diff Dawna # (ANC) K/uL 1.6 6.6 4.9 FINAL Asim Eli a On[facility] - [place], [address] [place] [address] [address] [place] [id number] 0 Phone: () - 06/19 CBC w/ auto diff Dawna % % 43.0 74.0 56.8 FINAL Asim Eli a [facility] - [place], [address] [place] [address] [address] [place] [id number] 0 Phone: () - 06/19 CBC w/ auto diff IG % % 0.0 0.5 0.5 FINAL Asim Eli a On[facility] - [place], [address] [place] [address] [address] [place] [id number] 0 Phone: () - 06/19 CBC w/ auto diff IG # K/uL 0.0 0.03 0.04 High FINAL Asim Eli a Oncology - [place], [address] [place] [address] [address] [place] [id number] 0 Phone: () - 06/19 CBC w/ auto diff LY % % 14.0 41.0 33.4 FINAL Asim Eli a On[facility] - [place], [address] [place] [address] [address] [place] [id number] 0 Phone: () - 06/19 CBC w/ auto diff MO % % 6.0 15.0 7.0 FINAL Asim Eli a On[facility] - [place], [address] [place] [address] [address] [place] [id number] 0 Phone: () - 06/19 CBC w/ auto diff EO % % 0.0 7.0 1.8 FINAL Asim Eli a Oncology - [place], [address] [place] [address] [address] [place] [id number] 0 Phone: () - 06/19 CBC w/ auto diff BA % % 0.0 2.0 0.5 FINAL Asim Eli a On[facility] - [place], [address] [place] [address] [address] [place] [id number] 0 Phone: () - 06/19 CBC w/ auto diff LY # K/uL 0.4 3.6 2.9 FINAL Asim Eli a Oncology - [place], [address] [place] [id number] 0 Phone: () - 06/19 CBC w/ auto diff MO # K/uL 0.2 1.3 0.6 FINAL Asim banerjee Oncology - [place], [address] [place] [id number] 0 Phone: () - 06/19 CBC w/ auto diff EO # K/uL 0.0 0.6 0.2 FINAL Asim banerjee Oncology - [place], [address] [place] [id number] 0 Phone: () - 06/19 CBC w/ auto diff BA # K/uL 0.0 0.2 0.0 FINAL Asim banerjee Oncology - [place], [address] [place] [id number] 0 Phone: () - 06/19 CBC w/ auto diff NRBC % #/100W BC 0.0 0.2 0.0 FINAL Asim banerjee Oncology - [place], [address] [place] [id number] 0 Phone: () - 06/19 CBC w/ auto diff RBC M/uL 3.9 5.1 4.67 FINAL Asim banerjee Oncology - [place], [address] [place] [id number] 0 Phone: () - 06/19 CBC w/ auto diff HCT % 35.0 48.0 41.7 FINAL Asim banerjee Oncology - [place], [address] [place] [id number] 0 Phone: () - 06/19 CBC w/ auto diff MCV fL 80.0 104.0 89.3 FINAL Asim banerjee Oncology - [place], [address] [place] [address] [address] [place] [id number] 0 Phone: () - 06/19 CBC w/ auto diff MCH pg 26.0 35.0 30.4 FINAL Asim banerjee Oncology - [place], [address] [place] [id number] 0 Phone: () - 06/19 CBC w/ auto diff MCHC g/dL 30.0 35.0 34.1 FINAL Asim banerjee Oncology - [place] [facility], [address] 200 [place] [id number] 0 Phone: () - 06/19 CBC w/ auto diff MPV fL 9.5 13.4 8.8 Low FINAL Asim banerjee Oncology - [place] [facility], [address] [place] [id number] 0 Phone: () - 06/19 CBC w/ auto diff RDW % 11.4 16.1 13.10 FINAL Asim banerjee Oncology - [place] [facility], [address] [place] [address] 200 [place] [id number] 0 Phone: () - 06/19 Retic ulocy te count panel Retic ulocy te, absol bc M/uL 0.02 0.08 0.08 FINAL Asim banerjee Oncology - [place] [facility], [address] [place] [id number] 0 Phone: () - 06/19 Retic ulocy te count panel Retic ulocy te count % 0.4 1.6 1.75 High FINAL Asim banerjee Oncology - [place] [facility], [address] [place] [address] 200 [place] [id number] 0 Phone: () - 06/19 Retic ulocy te count panel Immat ure retic ulocy te fract ion, % % 0.0 16.5 10.80 FINAL Asim banerjee Oncology - [place] [facility], [address] 200 [place] [id number] 0 Phone: () - 06/19 Retic ulocy te count panel Retic ulocy te cellu lar hemog lobin pg 28.0 37.0 34.6 FINAL Asim banerjee Oncology - [place] [facility], [address] [place] [address] 200 [place] [id number] 0 Phone: () - 06/19 CMP Album in g/dL 3.2 5.2 4.6 FINAL Asim banerjee Oncology [facility], [address] [facility] [id number] 0 Phone: () - 06/19 CMP Alkal ine phosp hatas e U/L 46.0 116.0 91 FINAL Asimmatt Cornelius [facility], [address] [facility] [id number] 0 Phone: () - 06/19 CMP ALT/S GPT U/L 7.0 40.0 27 FINAL Asim Cornelius [facility], [address] [facility] [phone] 0 Phone: () - 06/19 CMP AST/S GOT U/L 13.0 40.0 34 FINAL [facility], [address] [facility] [id number] 0 Phone: () - 06/19 CMP BUN mg/dL 9.0 23.0 11 FINAL [facility], [address] [place] [id number] 0 Phone: () - 06/19 CMP Calci um mg/dL 8.7 10.4 9.4 FINAL [facility], [address] [facility] [id number] 0 Phone: () - 06/19 CMP Chlor ray mmol/L 96.0 114.0 107 FINAL [facility], [address] [facility] [address] [place] [id number] 0 Phone: () - 06/19 CMP CO2 [...] the 96 hour stability window. FINAL [facility], [address] [facility] [id number] 0 Phone: () - 06/19 CMP Creat inine mg/dL 0.5 1.2 0.68 FINAL [facility] [address] [address] [facility] [id number] 0 Phone: () - 06/19 CMP GFR estim ate ml/min /1.73m ^2 103.9 GFR is calculate d using the CKD-EPI equation. FINAL Asim Cornelius [facility], [address] [facility] [address] [facility] [address] [facility] [id number] 0 Phone: () - 06/19 CMP Gluco se mg/dL 73.0 126.0 95 FINAL Asimmatt Cornelius [facility], [address] [facility] [address] [facility] [id number] 0 Phone: () - 06/19 CMP Potas sium mmol/L 3.5 5.1 4.1 [facility], [address] [facility] [address] [facility] [address] [facility] [id number] 0 Phone: () - 06/19 CMP Sodiu m mmol/L 136.0 145.0 140 FINAL Asim [facility], [address] [facility] [address] [facility] [phone] 0 Phone: () - 06/19 CMP Bilir ubin, total mg/dL 0.3 1.2 0.2 Low [facility], [address] [facility] [address] [facility] [id number] 0 Phone: () - 06/19 CMP Total prote in g/dL 5.7 8.2 6.9 [facility] [address] [facility] [phone] 0 Phone: () - 01/19 [facility] other lab See apple peeler operator d 05/01 Mis other lab See apple peeler operator d 05/06 CBC w/ auto diff WBC K/uL 3.0 8.9 8.4 FINAL Deepthi Clemens lavonne [facility], [address] [facility] [id number] 0 Phone: () - 05/06 CBC w/ auto diff HGB g/dL 11.3 15.2 13.6 FINAL Deepthi Clemens lavonne On[facility] - [place], [address] [place] [id number] 0 Phone: () - 05/06 CBC w/ auto diff PLT K/uL 113.0 364.0 266 FINAL Deepthi banerjee Oncology - [place], [address] [place] [id number] 0 Phone: () - 05/06 CBC w/ auto diff Dawna # (ANC) K/uL 1.6 6.6 3.9 FINAL Deepthi banerjee Oncology - [place], [address] [place] [id number] 0 Phone: () - 05/06 CBC w/ auto diff Dawna % % 43.0 74.0 46.7 FINAL Deepthi banerjee Oncology - [place], [address] 200 [place] [id number] 0 Phone: () - 05/06 CBC w/ auto diff IG % % 0.0 0.5 0.5 FINAL Deepthi banerjee Oncology - [place], [address] 200 [place] [id number] 0 Phone: () - 05/06 CBC w/ auto diff IG # K/uL 0.0 0.03 0.04 High FINAL Deepthi banerjee Oncology - [place], [address] [place] [id number] 0 Phone: () - 05/06 CBC w/ auto diff LY % % 14.0 41.0 44.8 High FINAL Deepthi banerjee Oncology - [place], [address] [place] [id number] 0 Phone: () - 05/06 CBC w/ auto diff MO % % 6.0 15.0 6.2 FINAL Deepthi banerjee Oncology - [place], [address] [place] [id number] 0 Phone: () - 05/06 CBC w/ auto diff EO % % 0.0 7.0 1.4 FINAL Deepthi banerjee Oncology - [place], [address] 200 [place] [id number] 0 Phone: () - 05/06 CBC w/ auto diff BA % % 0.0 2.0 0.4 FINAL Deepthi banerjee Oncology - [place], [address] [place] [address] 200 [place] [id number] 0 Phone: () - 05/06 CBC w/ auto diff LY # K/uL 0.4 3.6 3.8 High FINAL Deepthi banerjee Oncology - [place], [address] [place] [address] 200 [place] [id number] 0 Phone: () - 05/06 CBC w/ auto diff MO # K/uL 0.2 1.3 0.5 FINAL Deepthi banerjee Oncology - [place] [facility], [address] [place] [address] 200 [place] [id number] 0 Phone: () - 05/06 CBC w/ auto diff EO # K/uL 0.0 0.6 0.1 FINAL Deepthi banerjee Oncology - [place] [facility], [address] [place] [address] 200 [place] [id number] 0 Phone: () - 05/06 CBC w/ auto diff BA # K/uL 0.0 0.2 0.0 FINAL Deepthi banerjee Oncology - [place] [facility], [address] [place] [address] 200 [place] [id number] 0 Phone: () - 05/06 CBC w/ auto diff NRBC % #/100W BC 0.0 0.2 0.0 FINAL Deepthi banerjee Oncology - [place] [facility], [address] [place] [address] 200 [place] [id number] 0 Phone: () - 05/06 CBC w/ auto diff RBC M/uL 3.9 5.1 4.57 FINAL Deepthi banerjee Oncology - [place] [facility], [address] [place] [address] 200 [place] [id number] 0 Phone: () - 05/06 CBC w/ auto diff HCT % 35.0 48.0 40.7 FINAL Deepthi banerjee Oncology - [place], [address] [place] [address] 200 [place] [id number] 0 Phone: () - 05/06 CBC w/ auto diff MCV fL 80.0 104.0 89.1 FINAL Deepthi banerjee Oncology - [place] [facility], [address] [place] [address] 200 [place] [id number] 0 Phone: () - 05/06 CBC w/ auto diff MCH pg 26.0 35.0 29.8 FINAL Deepthi banerjee Oncology - [place] [facility], [address] [place] [address] 200 [place] [id number] 0 Phone: () - 05/06 CBC w/ auto diff MCHC g/dL 30.0 35.0 33.4 FINAL Deepthi banerjee Oncology - [place] [facility], [address] [place] [address] 200 [place] [id number] 0 Phone: () - 05/06 CBC w/ auto diff MPV fL 9.5 13.4 9.3 Low FINAL Deepthi Clemens lavonne Oncology - [place] [facility], [address] [place] [address] 200 [place] [phone] 0 Phone: () - 05/06 CBC w/ auto diff RDW % 11.4 16.1 13.60 FINAL Deepthi Clemens lavonne On[facility] - [place] [facility], [address] [place] [address] 200 [place] [id number] 0 Phone: () - 05/06 Retic ulocy te count panel Retic ulocy te, absol bc M/uL 0.02 0.08 0.07 FINAL Deepthi Clemens lavonne Oncology - [place] [facility], [address] [place] [address] 200 [place] [id number] 0 Phone: () - 05/06 Retic ulocy te count panel Retic ulocy te count % 0.4 1.6 1.60 FINAL Deepthi Clemens lavonne Oncology - [place] [facility], [address] [place] [address] 200 [place] [id number] 0 Phone: () - 05/06 Retic ulocy te count panel Immat ure retic ulocy te fract ion, % % 0.0 16.5 9.70 FINAL Deepthi Clemens lavonne Oncology - [place] [facility], [address] [place] [address] 200 [place] [id number] 0 Phone: () - 05/06 Retic ulocy te count panel Retic ulocy te cellu lar hemog lobin pg 28.0 37.0 33.0 FINAL Deepthi banerjee [facility] lis, [address] [place] [address] 200 [facility] [id number] 0 Phone: () - 05/06 CMP Album in g/dL 3.2 5.2 4.7 FINAL [place] [address] [id number] 0 Phone: () - 05/06 CMP Alkal ine phosp hatas e U/L 46.0 116.0 73 FINAL [place] [address] [phone] 0 Phone: () - 05/06 CMP ALT/S GPT U/L 7.0 40.0 19 FINAL [place] [address] [id number] 0 Phone: () - 05/06 CMP AST/S GOT U/L 13.0 40.0 21 FINAL [place] [address] [id number] 0 Phone: () - 05/06 CMP BUN mg/dL 9.0 23.0 16.0 FINAL [place] [address] [id number] 0 Phone: () - 05/06 CMP Calci um mg/dL 8.7 10.4 9.8 FINAL Deepthi Dodge [place] [address] [id number] 0 Phone: () - 05/06 CMP Chlor ray mmol/L 96.0 114.0 107 FINAL [place] [address] [phone] 0 Phone: () - 05/06 CMP CO2 [...] 96 hour stability window. FINAL Deepthi banerjee [place] [address] [id number] 0 Phone: () - 05/06 CMP Creat inine mg/dL 0.5 1.2 0.80 FINAL Deepthi banerjee [place] [address] [id number] 0 Phone: () - 05/06 CMP GFR estim ate ml/min /1.73m ^2 90.1 GFR is calculate d using the CKD-EPI equation. FINAL Deepthi Clemens lavonne [place] [address] [phone] 0 Phone: () - 05/06 CMP Gluco se mg/dL 73.0 126.0 128 High FINAL Deepthi Clemens lavonne [place] [address] [phone] 0 Phone: () - 05/06 CMP Potas sium mmol/L 3.5 5.1 3.9 FINAL Deepthi Clemens lavonne [place] [address] [phone] 0 Phone: () - 05/06 CMP Sodiu m mmol/L 136.0 145.0 142 FINAL [place] [address] [phone] 0 Phone: () - 05/06 CMP Bilir ubin, total mg/dL 0.3 1.2 0.2 Low FINAL [place] [address] [id number] 0 Phone: () - 05/06 CMP Total prote in g/dL 5.7 8.2 7.1 FINAL [place] [address] [address] [facility] [address] [facility] [phone] 0 Phone: () - 05/06 LDH panel LDH U/L 120.0 246.0 191 FINAL Deepthi Dodge Sarath[facility] Oncology - [place], [address] [facility] [phone] 0 Phone: () - Medications Date Name Route Dose Frequency Instructions Start Date End Date Status Fill Status Indication 05/06 Furosem ray Oral daily active 05/06 Lisinop ril Oral orally 10.0 mg daily active 05/06 Albuter ol HFA Inhaler 90 mcg/act uation PRN active 12/21 dexamet hasone sodium phospha te intrave nously 10.0 mg once 2019 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
--- OUTSIDE RECORDS SUMMARY | 2025-09-08 13:09 | XMS_ITS ---
Author Name Interface, [id number] lity Address [address] [place] [address] Oncology Address [address] [place] [address] Allergies and Adverse Reactions Plan Reason for Visit Encounters Diagnostic Results Medications Problems Vital Signs
--- OUTSIDE RECORDS SUMMARY | 2025-09-08 13:09 | XMS_ITS ---
Author Name Interface, [id number] lity Address [address] [place] [address] [address] [place] [address] [facility] Oncology Address [facility]0 [facility] [address] [place] [address] Allergies and Adverse Reactions Medication/Group Name Reaction Severity Date adhesive 05/06/2023 Citalopram Analogues no mappable FDB reaction 05/06/2023 escitalopram oxalate no mappable FDB reaction 05/06/2023 Plan Date Type Value 05/06/2023 APPOINTMENT RECONSULT 30 MIN 05/06/2023 APPOINTMENT LAB 15 MIN 05/06/2023 LAB_ORDER Reticulocyte cou nt panel 05/06/2023 [...] 246.0 191 FINAL Deepthi banerjee Oncology - [place], [address] [facility] [address] [facility] [phone] Phone: () - 05/06 CBC w/ auto diff WBC K/uL 3.0 8.9 8.4 FINAL Deepthi banerjee Oncology - [facility] lis, [address] [facility] [phone] [phone] Phone: () - 05/06 CBC w/ auto diff HGB g/dL 11.3 15.2 13.6 FINAL Deepthi banerjee Oncology - [place], [address] [place] [phone] 0 Phone: () - 05/06 CBC w/ auto diff PLT K/uL 113.0 364.0 266 FINAL Deepthi banerjee Oncology - [place], [address] [place] [phone] 0 Phone: () - 05/06 CBC w/ auto diff Dawna # (ANC) K/uL 1.6 6.6 3.9 FINAL Deepthi banerjee Oncology - [place], [address] [place] [id number] 0 Phone: () - 05/06 CBC w/ auto diff Dawna % % 43.0 74.0 46.7 FINAL Depethi banerjee Oncology - [place], [address] [place] [phone] 0 Phone: () - 05/06 CBC w/ auto diff IG % % 0.0 0.5 0.5 FINAL Deepthi banerjee Oncology - [place], [address] [place] [phone] 0 Phone: () - 05/06 CBC w/ auto diff IG # K/uL 0.0 0.03 0.04 High FINAL Deepthi banerjee Oncology - [place], [address] [place] [phone] 0 Phone: () - 05/06 CBC w/ auto diff LY % % 14.0 41.0 44.8 High FINAL Deepthi banerjee Oncology - [place], [address] [place] [phone] 0 Phone: () - 05/06 CBC w/ auto diff MO % % 6.0 15.0 6.2 FINAL Deepthi banerjee Oncology - [place], [address] [place] [phone] 0 Phone: () - 05/06 CBC w/ auto diff EO % % 0.0 7.0 1.4 FINAL Deepthi banerjee Oncology - [place], [address] [place] [phone] 0 Phone: () - 05/06 CBC w/ auto diff BA % % 0.0 2.0 0.4 FINAL Deepthi banerjee Oncology - [place], [address] [place] [address] [address] [place] [phone] 0 Phone: () - 05/06 CBC w/ auto diff LY # K/uL 0.4 3.6 3.8 High FINAL Deepthi banerjee Oncology - [place], [address] [place] [address] [address] [place] [phone] 0 Phone: () - 05/06 CBC w/ auto diff MO # K/uL 0.2 1.3 0.5 FINAL Deepthi banerjee Oncology - [place], [address] [place] [address] [address] [place] [phone] 0 Phone: () - 05/06 CBC w/ auto diff EO # K/uL 0.0 0.6 0.1 FINAL Deepthi banerjee Oncology - [place], [address] [place] [address] [address] [place] [phone] 0 Phone: () - 05/06 CBC w/ auto diff BA # K/uL 0.0 0.2 0.0 FINAL Deepthi banerjee Oncology - [place], [address] [place] [address] [address] [place] [phone] 0 Phone: () - 05/06 CBC w/ auto diff NRBC % #/100W BC 0.0 0.2 0.0 FINAL Deepthi banerjee Oncology - [place], [address] [place] [address] [address] [place] [phone] 0 Phone: () - 05/06 CBC w/ auto diff RBC M/uL 3.9 5.1 4.57 FINAL Deepthi banerjee Oncology - [place], [address] [place] [address] [address] [place] [phone] 0 Phone: () - 05/06 CBC w/ auto diff HCT % 35.0 48.0 40.7 FINAL Deepthi banerjee Oncology - [place], [address] [place] [address] [address] [place] [phone] 0 Phone: () - 05/06 CBC w/ auto diff MCV fL 80.0 104.0 89.1 FINAL Deepthi banerjee Oncology - [place] [facility], [address] [place] [address] 200 [facility] [place] [phone] 0 Phone: () - 05/06 CBC w/ auto diff MCH pg 26.0 35.0 29.8 FINAL Deepthi banerjee Oncology - [place] [facility], [address] [place] [address] 200 [facility] [place] [phone] 0 Phone: () - 05/06 CBC w/ auto diff MCHC g/dL 30.0 35.0 33.4 FINAL Deepthi banerjee Oncology - [place] [facility], [address] [place] [address] 200 [facility] [place] [phone] 0 Phone: () - 05/06 CBC w/ auto diff MPV fL 9.5 13.4 9.3 Low FINAL Deepthi banerjee Oncology - [place] [facility], [address] [place] [address] 200 [facility] [place] [phone] 0 Phone: () - 05/06 CBC w/ auto diff RDW % 11.4 16.1 13.60 FINAL Deepthi banerjee Oncology - [place] [facility], [address] [place] [address] 200 [facility] [place] [phone] 0 Phone: () - 05/06 Retic ulocy te count panel Retic ulocy te, absol [place] M/uL 0.02 0.08 0.07 FINAL Deepthi banerjee Oncology - [place] [facility], [address] [place] [address] [address] [facility] [place] [id number] 0 Phone: () - 05/06 Retic ulocy te count panel Retic ulocy te count % 0.4 1.6 1.60 FINAL Deepthi banerjee Oncology - [place] [facility], [address] [place] [address] [address] [facility] [place] [phone] 0 Phone: () - 05/06 Retic ulocy te count panel Immat ure retic ulocy te fract ion, % % 0.0 16.5 9.70 FINAL Deepthi banerjee Oncology - [place] [facility], [address] [place] [address] [address] [place] [phone] 0 Phone: () - 05/06 Retic ulocy te count panel Retic ulocy te cellu lar hemog lobin pg 28.0 37.0 33.0 FINAL Deepthi banerjee [facility] lis, [address] [place] [address] [address] [place] [phone] 0 Phone: () - 05/06 CMP Album in g/dL 3.2 5.2 4.7 FINAL Deep[place] [address] [phone] 0 Phone: () - 05/06 CMP Alkal ine phosp hatas e U/L 46.0 116.0 73 FINAL Deepthi [place] [address] [phone] 0 Phone: () - 05/06 CMP ALT/S GPT U/L 7.0 40.0 19 FINAL Deepthi [place] [address] [phone] 0 Phone: () - 05/06 CMP AST/S GOT U/L 13.0 40.0 21 FINAL Deepthi [place] [address] [phone] 0 Phone: () - 05/06 CMP BUN mg/dL 9.0 23.0 16.0 FINAL Deepthi [place] [address] [phone] 0 Phone: () - 05/06 CMP Calci um mg/dL 8.7 10.4 9.8 FINAL Deeptih [place] [address] [phone] 0 Phone: () - 05/06 CMP Chlor ray mmol/L 96.0 114.0 107 FINAL Deepthi [place] [address] [id number] 0 Phone: () - 05/06 CMP CO2 [...] 96 hour stability window. FINAL Deepthi banerjee [place] [address] [phone] 0 Phone: () - 05/06 CMP Creat inine mg/dL 0.5 1.2 0.80 FINAL Deepthi [place] [address] [phone] 0 Phone: () - 05/06 CMP GFR estim ate ml/min /1.73m ^2 90.1 GFR is calculate d using the CKD-EPI equation. FINAL Deepthi [place] [address] [phone] 0 Phone: () - 05/06 CMP Gluco se mg/dL 73.0 126.0 128 High FINAL Deepthi [place] [address] [phone] 0 Phone: () - 05/06 CMP Potas sium mmol/L 3.5 5.1 3.9 FINAL Deepthi [place] [address] [phone] 0 Phone: () - 05/06 CMP Sodiu m mmol/L 136.0 145.0 142 FINAL Deepthi [place] [address] [phone] 0 Phone: () - 05/06 CMP Bilir ubin, total mg/dL 0.3 1.2 0.2 Low [facility] [address] [facility] [address] [phone] 0 Phone: () - 05/06 CMP Total prote in g/dL 5.7 8.2 7.1 FINAL Deepthi [place] [address] [facility] [address] [facility] [phone] Phone: () - Medications Date Name [...] (disorder) Active Vital Signs Date Type Value 05/06/2023 Body Temperature 98.50 05/06/2023 Heart Beat 87.00 05/06/2023 Respiratory Rate 16.00 05/06/2023 Oxygen Saturation 98.00 05/06/2023 BSA 1.79 05/06/2023 Pain Scale 6.00 05/06/2023 Weight 172.30 05/06/2023 Height 62.00 05/06/2023 BMI 31.51 05/06/2023 Intravascular Systolic 148 05/06/2023 Intravascular Diastolic 88 Notes Section * Med Onc Follow-up Note <html><head></head><body><div style=text-align:center><span class=clinicalNoteMacroWysiwyg id=[id number] macroname=&quo t;PracticeLetterhead spantype=macro title=#PracticeLetterhead><img ifyhwh=[email or web address]=[id number] qlszp=594></span>
</div>
<strong>Patient Name</strong>: <span class=clinicalNoteMacroWysiwyg id=[id number]" macroname=PatientName spantype=macro title=#PatientName>XIN TRAN</span> &nbs p; &nbs p; &nbs p; &nbs p;
<strong>MRN</strong>: <span class=clinicalNoteMacroWysiwyg id=[id number] macroname="PatientMRN spantype=macro title=#PatientMRN>[id number]</span>& amp;nbsp; & amp;nbsp; & amp;nbsp; & amp;nbsp; & amp;nbsp; & amp;nbsp; & amp;nbsp;
<strong>Date Of </strong>: <span class=clinicalNoteMacroWysiwyg id=[id number] macroname=PatientDateOfBirth spantype=macro title=#Patien tDateOfBirth>1975</span>
<strong>Today's Provider: </strong><span class=clinicalNoteMacroWysiwyg id=[id number] macroname=MyName spantype=macro title=#MyName>Deepthi Dodge MD</span>
<strong>Date of Service: </strong><span class=clinicalNoteMacroWysiwyg i d=[id number] macroname=EffectiveDate spantype=macro t itle=#EffectiveDate>05/06/2023</span> &a mp;nbsp; &a mp;nbsp; &a mp;nbsp; &a mp;nbsp; &a mp;nbsp;
<strong>Attending Physician: &nbs p;</strong><span class=clinicalNoteMacroWysiwyg id=[id number] macroname=AttendingPhysician spantype=macro title=#AttendingPhy sician>Cheryle Ashford (Medical Oncology), Deepthi Dodge (Medical Oncology)</span>
<strong>Referring Provider:</strong> <span class=clinicalNoteMacroWysiwyg id=[id number] macroname=ReferringPhysician spantype=macro title=#ReferringPhysician>Wilfredo Ellis MD (Family Medicin e)</span>

<div style=text-align:center><span style=font- size:14px><strong>HEMATOLOGY/ MEDICAL ONCOLOGY FOLLOW UP VISIT</ strong></span>
</div><div>

<span class=clinicalNoteSectionVisible id=[id number] internalbreaksection=false originalname=Reason for visit recognizeconcepts=true spantype="section suppressempty=false>Reason for Visit</span>
Follow up,history of T- ALL

<span class=clinicalNoteSectionVisible id=[id number] internalbreaksection=false originalna me=Impression recognizeconcepts=true spantype=section suppressem pty=false>Assessment</span>
<ol> <li>History of stage IIIB T-cell acute lymphoblastic lymphoma at age 46 treated with an aspariginase-based induction regimen followed by consolidation therapy as detailed below. She was not able to complete 2 years of maintenance as recommended due to lack of follow up and insurance issues.
</li> <li>History of catheter-related DVT. Not on chronic anticoagulation. </li> <li>Lower extremity edema. Previously on furosemide but has not been taking this for a couple of years. </li></ol>
<span class=clinicalNoteSectionVisible id=[id number] internalbreaksection=false originalname =Recommendation/Plan recognizeconcepts=true spantype=section sup pressempty=false>Plan</span>
<ol> <li>Follow up with primary care as scheduled.</li> <li>Follow up with cardiology next week as scheduled.</li> <li>From an oncology perspective, her risk of relapse now 4 years out is not extremely high even though she did not complete maintenance therapy. Continue surveillance with yearly visit and CBC. However, I asked Xin to let us know if she develops fever, night sweats, weight loss, etc. as acute leukemia relapse is not likely to be caught on once yearly labs.

</li></ol>Total time spent including face to face time, chart review, documentation and coordination of care - 30 minutes.

<span class=clinicalNoteSectionVisible id=[id number] internalb reaksection=false originalname=Med Onc Advanced Care Planning recognizeconce pts=true spantype=section suppressempty=false>Advanced Care P lissa</span>

<span class=clinicalNoteSectionVisible id=&qu ot;[id number] internalbreaksection=false originalname=Pain Emily n This Visit recognizeconcepts=true spantype=section suppressempty=&qu ot;false>Pain Scale on Today's Visit</span>
<span class=clinica lNoteMacroWysiwyg id=[id number] macroname=PatientPainScale&quot ; parameters=LookBackDays:0,ValueIfNull:Not recorded on today spantype=macro title=#PatientPainScale(LookBackDays:0,ValueIfNull:Not recorded on today)>6</span>
<span class=clinicalNoteSectionVisible id=[id number] internalbreaksection=false originalname=Pain Plan This Visit recognizeconcepts=true spantype=section suppressempty=false>Pain Plan on Today's Visit</span>
<span class=clinicalNotThe Bellevue HospitalcroWysiwyg id=[id number] macroname=PatientPainCarePlan parameters=LookB ackDays:0,ShowComments:Yes,ValueIfNull:No pain plan indicated for today spantype=macro" title=#PatientPainCarePlan(LookBackDays:0,ShowComments:Yes,ValueIfNull:No pain plan indicated for today)>
Date of Service: 05/06/2023
Pain Scale (0-10): 6
Pain Treatment Plan: Non-opioid analgesics or techniques
Comment: </span>

<span class=clinicalNoteSectionVisible id=[id number]" internalbreaksection=false originalname=Smoking Status recognizeconcepts=true spantype=section suppressempty=false>Smoking Status</span>
<span class=clinicalNotThe [facility] HospitalcroWysiwyg id=[id number] macroname=PatientSmokingStatus parameters=ValueIfNull:Not recorded spantype=macro title=#PatientSmokingStatus(ValueIfNull:Not recorded)>Smoking Tobacco : Current every day smoker; Smokeless Tobacco : Never used smokeless tobacco; Vaping : Never vaped</span>
<hr><span class=clinicalNoteSectionVisible id=[id number] internalbreaksection=false originalname=Depression recognizeconcepts=true spantype=section suppressempty=false>Depression Screening Tool Status</span>
<span class=clinicalNoteMacroWysiwyg id=[id number] macroname=DepressionStatus para meters=ValueIfNull:Not screened on today spantype=macro title=#Depress ionStatus(ValueIfNull:Not screened on today)>Was not screened Reason: Patient Refused; Screening Date: 05/06/2023</span>

<span class=clinicalNoteSectionV isible id=[id number] internalbreaksection=false original name=History of Present Illness recognizeconcepts=true spantype=section suppressempty=false>History of Present Illness</span>
<stro ng>DIAGNOSIS:</strong>
<ol> <li><strong>T-cell acute lymphoblastic lymphoma</strong>, diagnosed definitively at ultrasound-guided biopsy of a left neck mass<strong> 04/05/2019</strong>Polly Lauren is a previously healthy 44 year old woman who was admitted 04/03/2019 from [place] to [facility] with dyspnea and a left neck mass. CT 04/04/2019 showed <strong>a giant anterior mediastinal mass, m</strong>ild left hilar, moderate supraclavicular, and mild inferior posterior triangle cervical adenopathy. There was also mild left superior <strong>periaortic retroperitoneal lymphadenopathy</strong>.<strong> Large left pleural effusion</strong> with prominent atelectasis in the left lower lobe . U/S guided bx of the<strong> left neck mass showed </strong><strong>T- cell acute lymphoblastic lymphoma (ALL).</strong> <strong>Pleural fluid was also positive for ALL</strong>. Bone marrow biopsy was negative. Subsequent CT of the abdomen showed abnormal soft tissue within the upper left retroperitoneum. This is contiguous with soft tissue thickening along the crux of the left hemidiaphragm and left pleural soft tissue thickening. </li> <li>Status post induction chemotherapy with complete response noted on imaging.
</li> <li>She is currently receiving consolidation per the above protocol, most recently Block 7 as an in-patient, 09/26-05/2019.
</li> <li>She is still too cytopenic for admission to the hospital Consolidation Block 8. I will therefore give her the next two weeks off, and then admit to the hospital 10/24 or 3 for that, which will be hersecond to last consolidation block. </li> <li>Chronic pain that predated her diagnosis but was probably related to it in some capacity. We were giving her opiates for this. She has been off of narcotics now for a few days and is okay with this. She would like to detox" and I am very supportive of this.
</li> <li>History of smoking with COPD seen on recent CT scan. Unfortunately she continues to smoke.</li> <li><strong>Rightupper extremity DVT </strong>06/07/2019, due to her powerport. S/P removal and currently on rivaroxaban, with which she has been intermittently compliant. </li> <li><strong>Left upper extremity occlusive thrombosis in the left </strong>basilic and axillary veins, and nonocclusive thrombus in the left subclavian. This was coincident with her not taking her rivaroxaban because I just got tired of taking it. 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 This was used for PICC during her recent hospitalization.
</li> <li>Recent development of compression fractures of the thoracic and lumbar spine,undoubtedly due to prednisone as part of her regimen.</li></ol><p><strong>THERAPY TO DATE:</strong></p><ol> <li>We are using the GRAAL 2003 regimen, inspired by similar pediatric protocols that have resulted in 60-70% chance of cure in adults 45 and younger. </li> <li> She was 6878admitted from 04/21/2019- 05/09/2019 for<strong> induction chemotherapy</strong> using the GRAAL 2003 regimen, She received Vincristine 2 mg/d IV D1, 8, 15 and 22; Daunorubicin 50 mg/m2/d IV D1, 2, 3 then 30 mg/m2 day 15 and 16; Pegaspargase 2000 mg/m2 IV day 1; Prednisone 60 mg/m2/d oral day 1-14; cyclophosphamide 750 mg/m2 D1. Because she was a good early responder, so she receive d cytoxan 750 mg/m2 IV day 15. <strong>CT scan 05/08/2019 showed significantinterval improvement with near complete resolution her anterior mediastinal mass,</strong> and complete resolution of her pleural effusion and upper abdominal adenopathy. She was discharged 05/09.</li> <li><strong><u>Admitted 05/15/2019- 05/19/2019 for first block (Block #1)</u></strong>consolidation, with cytarabine and dexamethasone givenbid days 1 and 2, and asparaginase given day 3. She was discharged 05/19/2019</li> <li>&l t;strong><u>Admitted 05/24/19 - 02/08 </u></strong>with right neck pain. CT of the neck which showed decreased attenuation within the internal jugular vein superior to where the catheter enters the<strong> internal jugular vein likely indicating venous thrombosis.</strong> She was started on heparin. But her CBC revealed platelet count of 21,000 hemoglobin 7.3 and a wh ite blood cell count of 0.8. Heparin was d/c'ed, and the port-a-cath was removed. She was not discharged on anticoagulation because of her thrombocytopenia.</li> <li><strong><u>Admitted 05/30-06/04 for Block 2 of consolidation </u></strong>She received 3000 mg/m of IV methotrexate, 2 mg of IV vincristine, followed by PEG as paraginase and daily mercaptopurine for about a week. She tolerated everything just fine and was discharged on G-CSF.</li> <li><strong><u>Admitted 06/13- for Block 3 of consolidation.</u></strong></li> <li><strong><u>Admitted 06/29/19-07/02/19 for Block 4 of Consolidation </u></strong>Received Cytarabine 2g q 12 hours D1,2, Dexamethasone 10 mg po q 12 hours, D1,2, Aspariginase 78613 u IM day 3 + Neulasta.</li> <li><strong><u>Admitted 07/13/19-07/19/19 for Block 5 of Consolidation</u>: </strong>07/13/19 - 07/14/19: Methotrexate 5300 mg IV with Leucovorin rescue, 07/13/19: Vincristine 2 mg IV, 07/14/19: Pegaspargase 3442.5 Units 07/13/19 - 07/19/19: Mercaptopurine 100 mg daily 07/19/19: On-body Neulasta</li> <li><strong><u>Received Block 6</u></strong>, Cytoxan methotrexate and etoposide, 08/02 through seven 08/04 as an outpatient</li> <li><u><strong>Admitted 08/26-08/27/19 for late intensification&l t;/strong>:</u> She received daunorubicin days 1-3 and vincristine day 1 inpatient. Received prednisone 100 mg daily for 14 days. PEG asparaginase on day 14 and cyclophosphamide and vincristine on day 18. She received days 14-18 as an outpatient, 09/09-.</li> <li><u><strong>Admitted 09/26-09/29/19 for Consolidation Block 7</strong>:</u> She received Cytarabine 2 g/m every 12 hours days 1 and 2, Dexamethasone 10 mg every 12 hours days 1 and 2, and Pegasparaginase 2000 units/m2 day 3
</li> <li><u><strong>Admitted 10/25- 10/28/19 for Consolidation Block 8</strong>:</u> She received High dose methotrexate on day 1, Vincristine 2 mg IV day 1, PEG- Asparaginase 2057 units on day 3. Methotrexate level was 0.12 on 10/28/2019.
</li> <li><u><strong>Admitted 11/17-11/19/19 for Consolidation Block 9</strong>:</u> She received with CTX, MTX, [employer]-16 + growth factor support with neulasta
</li> <li>Xin is back today to begin maintenance therapy with weekly methotrexate, daily 6-MP, dexamethasone days 1 through 5, and vincristine day 1 out of a 28-day cycle. The plan is to do this for a total of 2 years.</li> <li>Lost to follow up, did not complete maintenance, last visit with treatment was October 2019. </li></ol>
<span class=clinicalNoteSectionVisible id="[id number] internalbreaksection=false originalname=Interval History recognizeconcepts=true spantype=section suppressempty=false>Interval History</span>
Xin is here today for follow up. She last saw Aliza almost 2 years ago.

No drenching night sweats, weight loss orunexplained fever. No excessive bleeding or petechiae. No rash.

She has not been taking Lasix for a couple of years, but was given a refill recently at primary care.

She was told to see cardiology due to some ECG findings in the past but hasn't done this yet. This appointment is scheduled for next week.

<span class=clinicalNoteSectionVisible id=[id number]=false originalname=Review of Systems recognizeconcepts=true spantype=section suppressempty=false>Review of Systems</span>
Remaining 14 point comprehensive review of systems within normal limits. NCCN Distress Thermometer and Problem List were collected and documented in the patient chart. R emarkable symptoms and concerns were discussed with the patient. Any additional follow-upis indicated in the plan.

<span class=clinicalNoteSectionVisible id=[id number] internalbreaksection=false originalname=Medical History recognizeconcepts=true spantype=section suppressempty="false>Past Medical and Surgical History</span>
1. Anxiety, with panic attacks
2. Berumen's esophagus
3. Heartburn
4. Smoker
5. Tubalpregnancy without intrauterine
6. 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

<span class=clinicalNoteSectionVisible id=&quot ;[id number] internalbreaksection=false originalname=Medicatio ns recognizeconcepts=true spantype=section suppressempty=false&q uot;>Current Medications</span>
<span class=clinicalNoteMacroWysiwyg" id=[id number] macroname=MedicationsTable spantype=macro title=#MedicationsTable><table border=1 style=width:100%"> <tbody> <tr> <td align=left colspan=2>Medication List</td> </tr> <tr> <th align=left>Name</th> <th align=left>Date</th> </tr> <tr> <td width=60%>Dexamethasone IV</td> <td width=40%>12/21/2019</td> </tr> <tr> &l t;td width=60%>Lasix (Furosemide Oral)</td> <td width=40%>05/06/2023</td> </tr> <tr> <td width=60%>Lisinopril Oral</td> <td width=40%>05/06/2023</td> </tr> <tr> <td width=60%>Albuterol HFA Inhaler 90 mcg/actuation</td> <td width=40%>05/06/2023</td> </tr> </tbody></table></span>
<span class=cl inicalNoteSectionVisible id=[id number] internalbreaksection=fa lse originalname=Allergies recognizeconcepts=true spantype=section suppressempty=false>Allergies</span>
<span class=clinicalNoteMacroWysiwyg id=[id number] macroname=Allergies parameters=ValueIfNull:No allergies recorded. spantype=macro title=#Allergies(ValueIfNull:No allergies recorded.)>Citalopram Analogues, adhesive and escitalopram o xalate</span>

<span class=clinicalNoteSectionVisible id=&quo t;[id number] internalbreaksection=false originalname=Family H istory recognizeconcepts=true spantype=section suppressempty=false>Family History</span>
There is no family history of any hematologic or oncologic illness.

<span class=clinicalNoteSectionVisible id=s [id number] internalbreaksection=false originalname=Social Histo ry recognizeconcepts=true spantype=section suppressempty=false&q uot;>Social History</span>
Xin is to Tristan and they have 3 children. She smokes cigarettes.

<span class=clinicalNoteSectionVisible id=[id number] internalbreaksection=false originalname=Vital Signs and Pain Scale recognizeconcepts=true spantype=section sup pressempty=false>Vital Signs</span>
<span class=clinicalNoteMacroWysiwyg id=[id number] macroname=PatientVitalSigns par ameters=LookBackDays:1,ValueIfNull:Not recorded on visit spantype=macro titl e=#PatientVitalSigns(LookBackDays:1,ValueIfNull:Not recorded on visit)>Blood pressure: 148/88, Sitting, Regular, Pulse: 87, Temperature: 98.5 F, Respirations: 16, O2 sat: 98%, At Rest,Room Air, Pain Scale: 6, Height: 62 in, Weight: 172.3 lb, BSA: 1.79, BMI: 31.51 kg/m2</span>
<span class=clinicalNoteMacroWysiwyg id=[id number] ma croname=Immunizations spantype=macro title=#Immunizations>Flu vaccine - Adult (09/19/2019), Patient declined/rejected</span>
<span class= clinicalNoteSectionVisible id=[id number] internalbreaksection="false originalname=Performance Status recognizeconcepts=true spantype=section suppressempty=false>Performance Status ECOG or Karnofsky</span>
ECOG: <span class=clinicalNoteMacroWysiwyg id=[id number] macroname=ECOGStatus parameters=ValueIfNull:Not recorded spantype=macro title=#ECOGStatus(ValueIfNull:Not recorded)>1 Symptoms, but ambulatory. Restricted in physically strenuous activity, but ambulatory and able to carry out work of a light or sedentary nature (e.g., light housework, office work). (Date: 06/19/2021)</span>
Karnofsky: <span class=clinicalNoteMacroWysiwyg id=macro [id number] macroname=KarnofskyStatus parameters=ValueIfNull:Not recor ded spantype=macro title=#KarnofskyStatus(ValueIfNull:Not recorded)>80% Normal activity with effort; some signs or symptoms of disease. (Date: 09/19/2019)</span>

<span class=clinicalNoteSectionVisible id=[id number] internalbreaksection=false originalname=Physical Exam recognizeconcepts=true spantype=section suppressempty=false>Physical Exam</span>
General: Well appearing, not in distress
HENT: No scleral icterus.
Cardiovascular: Normal rate, regular rhythm.
Respiratory: Clear to auscultation bilaterally
Abdomen: Nontender, nondistended
Skin: No rash or petechiae on exposed skin
Neuro: No focal deficits.

<span class=clinicalNoteSectionVisible id=[id number] internalbreaksection=false originalname=Genetics/Molecular/Biomarkers recognizeconcepts="true spantype=section suppressempty=false>Genetics/Molecular/B iomarkers</span>
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
<span class=clinicalNoteSectionVisible id=[id number]" internalbreaksection=false originalname=Additional Labs, Imaging and Other St udies recognizeconcepts=true spantype=section suppressempty=fals e>Additional Labs, Imaging, and Other Studies</span>

<span clas s=clinicalNoteSectionVisible id=[id number] internalbreaksectio n=false originalname=Laboratory Results recognizeconcepts=true s pantype=section suppressempty=false>Lab Results</span>
<span class=clinicalNoteMacroWroxanneiwyg id=[id number] macroname=&qu ot;RecentLabResultsTable parameters=OptionalFlowsheetCategory:CBC,Label:CBC spantype=macro title=#RecentLabResultsTable(OptionalFlowsheetCategory:CBC,Label:CBC)&quo t;>CBC<table border=1 style=width:100%> <tbody> <tr> <th align=left>LabResults</th> <td>05/06/2023</td> <td>05/01/2023</td> <td>01/19/2023</td> <td>06/19/2021</td> <td>05/01/2020</td> <td>12/28/2019</td> </tr> <tr> <th align=left> CBC</th> <td>
</td> <td>
</td> <td>
</td> <td>
</td> <td>
</td> <td>
</td> </tr> <tr> <td> WBC x 10^3/uL</td> <td>8.4</td> <td>
</td> <td>
</td> <td>8.7</td> <td>4.9</td> <td>5.7</td> </tr> <tr> <td> RBC x 10^6/uL</td> <td>4.57</td> <td>
</td> <td>
</td> <td>4.67</td> <td>4.01</td> <td>2.97 (L)</td> </tr> <tr> <td > NRBC % /100 wbc</td> <td>0.0</td> <td>
</td> <td>
</td> <td>0.0</td> <td>0.0</td> <td>0.0</td> </tr> <tr> <td> HGB g/dL</td> <td>13.6</td> <td>
</td> <td>& lt;br> </td> <td>14.2</td> <td>12.5</td> <td>10.4 (L)</td> </tr> <tr> <td> HCT %</td> <td>40.7</td> <td>
</td> <td>
</td> <td>41.7</td> <td>36.8</td> <td>32.3 (L)</td> </tr> <tr> <td&g t; MCV fL</td> <td>89.1</td> <td>
</td> <td>
</td> <td>89.3</td> <td>91.8</td> <td>108.8 (H)</td> </tr> <tr> <td> MCH pg</td> <td>29.8</td> <td>
</td> <td><b r> </td> <td>30.4</td> <td>31.2</td> <td>35.0</td> </tr> <tr> <td> MCHC g/dL</td> <td>33.4</td> <td>
</td> <td>
</td> <td>34.1</td> <td>34.0</td> <td>32.2</td> </tr> <tr> <td>&nb sp; RDW %</td> <td>13.60</td> <td>
</td> <td>
</td> <td>13.10</td> <td>13.90</td> <td>15.20</td> </tr> <tr> <td> PLT x 10^3/uL</td> <td>266</td> <td>
</td> <td>
</td> <td>282</td> <td>257</td> <td>312</td> </tr><tr> <td> MPV fL</td> <td>9.3 (L)</td> <td>
</td> <td>
</td> <td>8.8 (L)</td> <td>9.1 (L)</td> <td>9.9</td> </tr> <tr> <td> Dawna %</td> <td>46.7</td> <td>
</td> <td>
</td> <td>56.8</td> <td>46.0</td> <td>72.5</td> </tr> <tr> <td> LY %</td> <td>44.8 (H)</td> <td>
</td> <td>
</td> <td>33.4</td> <td>38.7</td> <td>14.4</td> </tr> <tr> <td> MO %</td> <td>6.2</td> <td>
</td> <td>
</td> <td>7.0</td> <td>10.0</td> <td>9.6</td> </tr> <tr> <td> & amp;nbsp;EO %</td> <td>1.4</td> <td>
</td> <td>
</td> <td>1.8</td> <td>4.3</td> <td>2.6</td> </tr> <tr> <td> BA %</td> <td>0.4</td> <td>
</td> <td>
</td> <td>0.5</td> <td>0.6</td> <td>0.5</td> </tr> <tr> <td> IG %</td> <td>0.5</td> <td>
</td> <td>
</td> <td>0.5</td> <td>0.4</td> <td>0.4</td> </tr> <tr> <td> Dawna # (ANC) x 10^3/uL</td> <td>3.9</td> <td>
</td> <td>
</td> <td>4.9</td> <td>2.2</td> <td>4.1</td> </tr> <tr> <td> LY # x 10^3/uL</td> <td>3.8 (H)</td> <td>
</td> <td>
</td> <td>2.9</td> <td>1.9</td> <td>0.8</td> </tr> <tr> <td> MO # x 10^3/uL</td> <td>0.5</td> <td>
</td><td>
</td> <td>0.6</td> <td>0.5</td> <td>0.6</td> </tr> <tr> <td> EO # x 10^3/uL</td> <td>0.1</td> <td>
</td> <td>
</td> <td>0.2</td> <td>0.2</td> <td>0.2</td> </tr> <tr> < td> BA # x 10^3/uL</td> <td>0.0</td> <td>
</td> <td>
</td> <td>0.0</td> <td>0.0</td> <td>0.0</td> </tr> <tr> <td> IG # x 10^3/uL</td> <td>0.04 (H)</td> <td>
</td> <td>
</td> <td>0.04 (H)</td> <td>0.02</td> <td>0.02</td> </tr> <tr> <td> CBC Smear review comments</td> <td>
</td> <td>
</td> <td>
</td> <td>
</td> <td>Large and-or giant platelets present Atypical (Reactive and/or Variant) Lymphs present (A)</td> <td>
</td> </tr> <tr> <td> Auto CBC comments</td> <td>
</td> <td>
</td> <td>
</td> <td>
</td> <td>Slide review to follow</td> <td>
</td> </tr> </tbody></table></span>
<span class=cli nicalNoteMacroWysiwyg id=[id number] macroname=RecentLabResultsTa ble parameters=OptionalFlowsheetCategory:Chemistries,Label:Chemistries spantype="macro title=#RecentLabResultsTable(OptionalFlowsheetCategory:Chemistries,Label:Chemi stries)>Chemistries<table border=1 style=width:100%> <tbody> <tr> <th align=left>LabResults</th> <td>05/06/2023</td> <td>05/01/2023</td> <td>01/19/2023</td> <td>06/19/2021</td><td>05/01/2020</td> <td>12/28/2019</td> </tr> <tr> <th align=left> Chemistries</th> <td>
</td> <td>
</td> <td>
</td> <td>
</td> <td>
</td> <td>
</td> </tr> <tr> <td> Glucose mg/dL</td> <td>128 (H)</td> <td>
</td> <td>
</td> <td>95</td> <td>150 (H)</td> <td>117</td> </tr> <tr> <td> BUN mg/dL</td> <td>16.0</td> <td>
</td> <td>
</td> <td>11</td> <td>19</td> <td>11</td> </tr> <tr> <td> Creatinine mg/dL</td> <td>0.80</td> <td>
</td> <td>
</td> <td>0.68</td> <td>0.74</td> <td>0.53</td> </tr> <tr> <td> Creatinine, iSTAT mg/dL</td> <td>
</td> <td>
</td> <td>
</td> <td>
</td> <td>
</td> <td>0.5 (L)</td> </tr> <tr> <td> Sodium mmol/L</td> <td>142</td> <td>< br> </td> <td>
</td> <td>140</td> <td>144</td> <td>145</td> </tr> <tr> <td> Potassium mmol/L</td> <td>3.9</td> <td>
</td> <td>
</td> <td>4.1</td> <td>3.8</td> <td>3.4 (L)</td> </tr> <tr> <td> Chloride mmol/L</td> <td>107</td> <td>
</td> <td>
</td> <td>107</td> <td>107</td> <td>109</td> </tr> <tr> <td>&am p;nbsp; CO2 mmol/L</td> <td>28</td> <td>
</td> <td>
</td> <td>26</td> <td>27</td> <td>29</td> </tr> <tr> <td> Calcium mg/dL</td> <td>9.8</td> <td>
</td> <td>
</td> <td>9.4</td> <td>9.4</td> <td>9.7</td> </tr> <tr> <td> Albumin g/dL</td> <td>4.7</td> <td>
</td> <td>
</td> <td>4.6</td> <td>4.4</td> <td>3.9</td> </tr> <tr> <td> Total protein g/dL</td> <td>7.1</td> <td>
&lt ;/td> <td>
</td> <td>6.9</td> <td>6.1</td> <td>5.6 (L)</td> </tr> <tr> <td> Bilirubin, total mg/dL</td> <td>0.2 (L)</td> <td>
</td> <td>
</td> <td>0.2 (L)</td> <td>0.2 (L)</td> <td>0.2 (L)&l t;/td> </tr> <tr> <td> Alkaline phosphatase U/L</td> <td>73</td> <td>
</td> <td>
</td> <td>91</td> <td>76</td> <td>59</td> </tr> <tr> <td> AST/SGOT U/L</td> <td>21</td> <td>
</td> <td>
</td> <td>34</td> <td>16</td> <td>19</td> </tr> <tr> <td> ALT/SGPT U/L</td> <td>19</td> <td>
</td> <td >
</td> <td>27</td> <td>12</td> <td>13</td> </tr> <tr> <td> LDH U/L</td> <td>191</td> <td>
</td> <td>
</td> <td>246</td> <td>
</td> <td>
</td> </tr> <tr> < td> GFR estimate mL/min/1.73m2</td> <td>90.1</td> <td>
</td> <td>
</td> <td>103.9</td> <td>97.0</td> <td>114.0; 116.2</td> </tr> </tbody></table></span>
<span class=clinicalNoteMacroWysunitypoint [facility] id=[id number] macroname=RecentLabResultsTable parameters=OptionalFlowsheetCatego ry:ElectrophoresisProtein spantype=macro title=#RecentLabResultsTable(Option alFlowsheetCategory:ElectrophoresisProtein)> </span>
<span class=clinicalNoteMacrysunitypoint [facility] id=[id number] macr oname=RecentLabResultsTable parameters=OptionalFlowsheetCategory:Immunology spantype=macro title=#RecentLabResultsTable(OptionalFlowsheetCategory:Immunology)& quot;> </span>
<span class=clinicalNoteMacroWysunitypoint [facility] id=[id number] macroname=RecentLabResultsTable para meters=OptionalFlowsheetCategory:Tumor Markers,Label:Tumor Markers spantype=macro" title=#RecentLabResultsTable(OptionalFlowsheetCategory:Tumor Markers,Label:Tumor Markers)></span>
<span class=clinicalNoteMacroWysiwyg id=[id number] macroname=RecentLabResultsTable parameters=OptionalFlowsheetCategory:AnemiaLabs spantype=macro title=#RecentLabResultsTable(OptionalFlowsheetCategory:AnemiaLabs)><table border=1 style=width:100%> <tbody> <tr> <th align=left>LabResults</th> <td>05/06/2023</td> <td>05/01/2023</td> <td>01/19/2023</td> <td>06/19/2021&l t;/td> <td>05/01/2020</td> <td>12/28/2019</td> </tr> <tr> <th align=left> Anemia Labs</th> <td>
</td> <td>
</td> <td>
</td> <td>
</td> <td>
</td> <td>
</td> </tr> <tr> <t d> Reticulocyte count %</td> <td>1.60</td> <td>
</td> <td>
</td> <td>1.75 (H)</td> <td>2.07 (H)</td> <td>
</td> </tr> <tr> <td> Reticulocyte, absolute x 10^6/mL</td> <td>0.07</td> <td>
</td> <td>
</td> <td>0.08</td> <td>0.08</td> <td>
</td> </tr> <tr> <td> Immature reticulocyte fraction, %</td> <td>9.70</td><td>
</td> <td>
</td> <td>10.80</td> <td& gt;10.10</td> <td>
</td> </tr> <tr> <td> &amp ;nbsp; Reticulocyte cellular hemoglobin pg</td> <td>33.0</td> & lt;td>
</td> <td>
</td> <td>34.6</td> <td>36.5</td> <td>
</td> </tr> </tbody></table></span>
<span class=clinicalNoteSectionVisible id=[id number] internalbreaksection=false originalname=Surveys/Consents/Other Discussions" recognizeconcepts=true spantype=section suppressempty=false">Surveys/Consents/Other Discussions</span>

<hr>
<strong>Deepthi Dodge MD</strong>
<span class=clinicalNoteMacroWysiwyg id=[id number] macroname=LocationPhoneNumber paramete rs=Label:Phone: spantype=macro title=#LocationPhoneNumber(Label:Phone: )> </span>
<span class=clinicalNoteMacroWysiwyg id=[id number] macroname=LocationFaxNumber parameters=&q uot;Label:Fax: spantype=macro title=#LocationFaxNumber(Label:Fax: )&g t; </span>

CC: <span class=clinicalNoteMacroWysiwyg id=[id number] macroname=NoteRecipients spantype="macro title=#NoteRecipients>FAX
Wilfredo Ellis MD (Referring)</span>

<div style=text-align:center>
</div></div>

<div><span class=eSignSignature>Electronically signed by Deepthi Dodge MD 05/09/2023 23:22 CDT</span></div></body></html>
--- OUTSIDE RECORDS SUMMARY | 2025-09-08 13:09 | XMS_ITS ---
Author Name Interface, U2Avwucxm lity Address [address] [place] [address] [address] [place] [address] [facility] Address [facility]0 [facility] [address] [place] [address] Allergies and Adverse Reactions Medication/Group Name Reaction [...] 246.0 191 FINAL Deepthi banerjee On[facility] - [place], [address] [facility] [address] [facility] [phone] Phone: () - 05/06 CBC w/ auto diff WBC K/uL 3.0 8.9 8.4 FINAL Deepthi banerjee Oncology - [facility] lis, [address] [facility] [phone] 0 Phone: () - 05/06 CBC w/ auto diff HGB g/dL 11.3 15.2 13.6 FINAL Deepthi banerjee [facility] - [place], [address] [place] [id number] 0 Phone: () - 05/06 CBC w/ auto diff PLT K/uL 113.0 364.0 266 FINAL Deepthi banerjee [facility] - [place], [address] [place] [phone] 0 Phone: () - 05/06 CBC w/ auto diff Dawna # (ANC) K/uL 1.6 6.6 3.9 FINAL Deepthi banerjee [facility] - [place], [address] [place] [phone] 0 Phone: () - 05/06 CBC w/ auto diff Dawna % % 43.0 74.0 46.7 FINAL Deepthi banerjee [facility] - [place], [address] [place] [phone] 0 Phone: () - 05/06 CBC w/ auto diff IG % % 0.0 0.5 0.5 FINAL Deepthi banerjee [facility] - [place], [address] [place] [phone] 0 Phone: () - 05/06 CBC w/ auto diff IG # K/uL 0.0 0.03 0.04 High FINAL Deepthi banerjee [facility] - [place], [address] [place] [phone] 0 Phone: () - 05/06 CBC w/ auto diff LY % % 14.0 41.0 44.8 High FINAL Deepthi banerjee [facility] - [place], [address] [place] [id number] 0 Phone: () - 05/06 CBC w/ auto diff MO % % 6.0 15.0 6.2 FINAL Deepthi banerjee [facility] - [place], [address] [place] [phone] 0 Phone: () - 05/06 CBC w/ auto diff EO % % 0.0 7.0 1.4 FINAL Deepthi banerjee [facility] - [place], [address] [place] [phone] 0 Phone: () - 05/06 CBC w/ auto diff BA % % 0.0 2.0 0.4 FINAL Deepthi banerjee [facility] - [place], [address] [place] [address] [address] [place] [id number] 0 Phone: () - 05/06 CBC w/ auto diff LY # K/uL 0.4 3.6 3.8 High FINAL Deepthi banerjee [facility] - [place], [address] [place] [address] [address] [place] [phone] 0 Phone: () - 05/06 CBC w/ auto diff MO # K/uL 0.2 1.3 0.5 FINAL Deepthi banerjee [facility] - [place], [address] [place] [address] [address] [place] [id number] 0 Phone: () - 05/06 CBC w/ auto diff EO # K/uL 0.0 0.6 0.1 FINAL Deepthi banerjee [facility] - [place], [address] [place] [address] [address] [place] [phone] 0 Phone: () - 05/06 CBC w/ auto diff BA # K/uL 0.0 0.2 0.0 FINAL Deepthi banerjee [facility] - [place], [address] [place] [address] [address] [place] [id number] 0 Phone: () - 05/06 CBC w/ auto diff NRBC % #/100W BC 0.0 0.2 0.0 FINAL Deepthi banerjee [facility] - [place], [address] [place] [address] [address] [place] [id number] 0 Phone: () - 05/06 CBC w/ auto diff RBC M/uL 3.9 5.1 4.57 FINAL Deepthi banerjee [facility] - [place], [address] [place] [address] [address] [place] [phone] 0 Phone: () - 05/06 CBC w/ auto diff HCT % 35.0 48.0 40.7 FINAL Deepthi banerjee [facility] - [place], [address] [place] [address] [address] [place] [id number] 0 Phone: () - 05/06 CBC w/ auto diff MCV fL 80.0 104.0 89.1 FINAL Deepthi banerjee On[facility] - [place] [facility], [address] [place] [address] [address] [facility] [place] [phone] 0 Phone: () - 05/06 CBC w/ auto diff MCH pg 26.0 35.0 29.8 FINAL Deepthi banerjee On[facility] - [place] [facility], [address] [place] [address] [address] [facility] [place] [phone] 0 Phone: () - 05/06 CBC w/ auto diff MCHC g/dL 30.0 35.0 33.4 FINAL Deepthi banerjee On[facility] - [place] [facility], [address] [place] [address] [address] [facility] [place] [phone] 0 Phone: () - 05/06 CBC w/ auto diff MPV fL 9.5 13.4 9.3 Low FINAL Deepthi banerjee On[facility] - [place] [facility], [address] [place] [address] [address] [facility] [place] [phone] 0 Phone: () - 05/06 CBC w/ auto diff RDW % 11.4 16.1 13.60 FINAL Deepthi banerjee On[facility] - [place] [facility], [address] [place] [address] [address] [facility] [place] [phone] 0 Phone: () - 05/06 Retic ulocy te count panel Retic ulocy te, absol [place] M/uL 0.02 0.08 0.07 FINAL Deepthi banerjee [facility] - [place] [facility], [address] [place] [address] [address] [facility] [place] [phone] 0 Phone: () - 05/06 Retic ulocy te count panel Retic ulocy te count % 0.4 1.6 1.60 FINAL Deepthi banerjee [facility] - [place] [facility], [address] [place] [address] [address] [facility] [place] [phone] 0 Phone: () - 05/06 Retic ulocy te count panel Immat ure retic ulocy te fract ion, % % 0.0 16.5 9.70 FINAL Deepthi banerjee On[facility] - [place] [facility], [address] [place] [address] [address] [place] [phone] 0 Phone: () - 05/06 Retic ulocy te count panel Retic ulocy te cellu lar hemog lobin pg 28.0 37.0 33.0 FINAL Deepthi banerjee [facility] lis, [address] [place] [address] [address] [place] [phone] 0 Phone: () - 05/06 CMP Album in g/dL 3.2 5.2 4.7 [place]AL [place] [address] [id number] 0 Phone: () - 05/06 CMP Alkal ine phosp hatas e U/L 46.0 116.0 73 FINAL [place] [address] [phone] 0 Phone: () - 05/06 CMP ALT/S GPT U/L 7.0 40.0 19 FINAL [place] [address] [phone] 0 Phone: () - 05/06 CMP AST/S GOT U/L 13.0 40.0 21 [place]AL [place] [address] [phone] 0 Phone: () - 05/06 CMP BUN mg/dL 9.0 23.0 16.0 FINAL [place] [address] [phone] Phone: () - 05/06 CMP Calci um mg/dL 8.7 10.4 9.8 FINAL [place] [address] [phone] 0 Phone: () - 05/06 CMP Chlor ray mmol/L 96.0 114.0 107 FINAL [place] [address] [phone] 0 Phone: () - 05/06 CMP CO2 [...] 96 hour stability window. FINAL Deepthi banerjee [place] [address] [phone] 0 Phone: () - 05/06 CMP Creat inine mg/dL 0.5 1.2 0.80 FINAL Deepthi [place] [address] [phone] 0 Phone: () - 05/06 CMP GFR estim ate ml/min /1.73m ^2 90.1 GFR is calculate d using the CKD-EPI equation. FINAL Deepthi [place] [address] [phone] 0 Phone: () - 05/06 CMP Gluco se mg/dL 73.0 126.0 128 High FINAL [place] [address] [phone] 0 Phone: () - 05/06 CMP Potas sium mmol/L 3.5 5.1 3.9 FINAL [place] [address] [phone] 0 Phone: () - 05/06 CMP Sodiu m mmol/L 136.0 145.0 142 FINAL [place] [address] [phone] 0 Phone: () - 05/06 CMP Bilir ubin, total mg/dL 0.3 1.2 0.2 Low [facility] [address] [facility] [address] [phone] 0 Phone: () - 05/06 CMP Total prote in g/dL 5.7 8.2 7.1 FINAL [place] [address] [address] [facility] [address] [facility] [phone] Phone: () - Medications Date Name [...] style=text-align:center><span class=clinicalNoteMacroWysiwyg id=[id number] macroname=&quo t;PracticeLetterhead spantype=macro title=#PracticeLetterhead><img rhjpkw=[id number] exsdd=180></span>
</div>
<strong>Patient Name</strong>: <span class=clinicalNoteMacroWysiwyg id=[id number]" macroname=PatientName spantype=macro title=#PatientName>XIN TRAN</span> &nbs p; &nbs p; &nbs p; &nbs p;
<strong>MRN</strong>: <span class=clinicalNoteMacroWysiwyg id=[id number] macroname="PatientMRN spantype=macro title=#PatientMRN>[id number]</span>& amp;nbsp; & amp;nbsp; & amp;nbsp; & amp;nbsp; & amp;nbsp; & amp;nbsp; & amp;nbsp;
<strong>Date Of </strong>: <span class=clinicalNoteMacroWysiwyg id=[id number] macroname=PatientDateOfBirth spantype=macro title=#Patien tDateOfBirth>1975</span>
<strong>Today's Provider: </strong><span class=clinicalNoteMacroWysiwyg id=[id number] macroname=MyName spantype=macro title=#MyName>Depethi Dodge MD</span>
<strong>Date of Service: </strong><span class=clinicalNoteMacroWysiwyg [...] spantype=section suppressempty=false>Pain Plan on Today's Visit</span>
<span class=clinicalNotMemorial Health [facility] HospitalcroWysiwyg id=[id number] macroname=PatientPainCarePlan parameters=LookB ackDays:0,ShowComments:Yes,ValueIfNull:No pain plan indicated for today spantype=macro" title=#PatientPainCarePlan(LookBackDays:0,ShowComments:Yes,ValueIfNull:No pain plan indicated for today)>
Date of Service: 05/06/2023
Pain Scale (0-10): 6
Pain Treatment Plan: Non-opioid analgesics or techniques
Comment: </span>

<span class=clinicalNoteSectionVisible id=[id number]" internalbreaksection=false originalname=Smoking Status recognizeconcepts=true spantype=section suppressempty=false>Smoking Status</span>
<span class=clinicalNotMemorial Health System [facility] Memorial HospitalcroWysiwyg id=[id number] macroname=PatientSmokingStatus parameters=ValueIfNull:Not recorded spantype=macro title=#PatientSmokingStatus(ValueIfNull:Not [...] old woman who was admitted 04/03/2019 from [place] to [facility] with dyspnea and a left neck mass. [...] mg po q 12 hours, D1,2, Aspariginase [id number] u IM day 3 + Neulasta.</li> <li><strong><u>Admitted [...] Block 9</strong>:</u> She received with CTX, MTX, [employer]-16 + growth factor support with neulasta
</li> [...] recognizeconcepts="true spantype=section suppressempty=false>Genetics/Molecular/B iomarkers</span>
<span class=clinicalNoteMacroWysiwyg id=[id number] macroname=Problems parameters=ListType:Bulleted,PrincipalOnl y:Yes spantype=macro title=#Problems(ListType:Bulleted,PrincipalOnly:Yes)&qu ot;><ul> <li>Drug [...] <td>103.9</td> <td>97.0</td> <td>114.0; 116.2</td> </tr> </tbody></table></span>
<span class=clinicalNoteMacroWysjackson county regional health center id=[id number] macroname=RecentLabResultsTable parameters=OptionalFlowsheetCatego ry:ElectrophoresisProtein spantype=macro title=#RecentLabResultsTable(Option alFlowsheetCategory:ElectrophoresisProtein)> </span>
<span class=clinicalNoteMacrysjackson county regional health center id=[id number] macr oname=RecentLabResultsTable parameters=OptionalFlowsheetCategory:Immunology spantype=macro title=#RecentLabResultsTable(OptionalFlowsheetCategory:Immunology)& quot;> </span>
<span class=clinicalNoteMacroWysjackson county regional health center id=[id number] macroname=RecentLabResultsTable para meters=OptionalFlowsheetCategory:Tumor Markers,Label:Tumor Markers spantype=macro" [...]
--- OUTSIDE RECORDS SUMMARY | 2025-09-08 13:09 | XMS_ITS ---
Author Name Interface, L8Wumbudu lity Address [address] [place] [address] [address] [place] [address] [facility] Address [address] [place] [address] [address] [place] [address] Allergies and Adverse Reactions Medication/Group Name Reaction [...] - 16 RECHECK - 16 RECHECK 05/01/2020 LAB_ORDER CMP 05/01/2020 LAB_ORDER CBC w/ auto diff 05/01/2020 LAB_ORDER PET/CT scan, sku ll base/mid thigh 05/02/2020 LAB_ORDER Reticulocyte cou nt panel 05/02/2020 LAB_ORDER Path peripheral blood slide review panel 08/06/2020 LAB_ORDER CBC w/ auto diff 06/19/2021 LAB_ORDER CMP 06/19/2021 LAB_ORDER CBC w/ [...] CASE REPORTSpe cial Hematolog y Report Case: [id number] ing Provider: Asim Cornelius MD Collected :05/01/20 20 1447Order ing Location: [facility] Received: 0 1212Patho [...] iagnosed by left neck lymph node biopsy ([id number] , 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 Staging bonemarro w biopsy [...] specimens .ADDITION AL INFORMATI ONInterpr eted at [facility], [facility] - [address], [place] [address]Myfy Performed by:[facility] - [facility] [place], [place] [address]Khhj e : FINAL Asim Ashli 05/01 Retic ulocy te count panel Retic ulocy te, absol [place] M/uL 0.02 0.08 0.08 FINAL Asim Cornelius Sarathot a Oncology - [facility] lis, [address] [place] [address] [address] [place] [id number] 0 Phone: () - 05/01 Retic ulocy te count panel Retic ulocy te count % 0.4 1.6 2.07 High FINAL Asim Cornelius Sarathot a [facility], [address] [place] [address] [address] [place] [id number] 0 Phone: () - 05/01 Retic ulocy te count panel Immat ure retic ulocy te fract ion, % % 0.0 16.5 10.10 FINAL Asim banerjee Oncology - [place] [facility], [address] [place] [address] [address] [place] [id number] 0 Phone: () - 05/01 Retic ulocy te count panel Retic ulocy te cellu lar hemog lobin pg 28.0 37.0 36.5 FINAL Asim banerjee Oncology - [place] [facility], [address] [place] [address] [address] [place] [id number] 0 Phone: () - 05/01 Smear revie w panel CBC Smear revie w comme nts Large and-or giant platele ts present Atypica l (Reacti ve and/or Variant ) Lymphs present Abnor mal FINAL Asim banerjee Oncology - [place] [facility], [address] [place] [address] [address] [place] [id number] 0 Phone: () - 05/01 CBC w/ auto diff PLT K/uL 113.0 364.0 257 FINAL Asim banerjee Oncology - [place], [address] [place] [id number] 0 Phone: () - 05/01 CBC w/ auto diff Dawna # (ANC) K/uL 1.6 6.6 2.2 FINAL Asim banerjee Oncology - [place], [address] [place] [address] [address] [place] [id number] 0 Phone: () - 05/01 CBC w/ auto diff Dawna % % 43.0 74.0 46.0 FINAL Asim banerjee Oncology - [place], [address] [place] [address] [address] [place] [id number] 0 Phone: () - 05/01 CBC w/ auto diff IG % % 0.0 0.5 0.4 FINAL Asim banerjee Oncology - [place], [address] [place] [address] [address] [place] [id number] 0 Phone: () - 05/01 CBC w/ auto diff IG # K/uL 0.0 0.03 0.02 FINAL Asim banerjee Oncology - [place], [address] [place] [address] [address] [place] [id number] 0 Phone: () - 05/01 CBC w/ auto diff LY % % 14.0 41.0 38.7 FINAL Asim Eli a Oncology - [place], [address] [place] [address] [address] [employer] [place] [id number] 0 Phone: () - 05/01 CBC w/ auto diff MO % % 6.0 15.0 10.0 FINAL Asimmatt Clemensot a Oncology - [place] [facility], [address] [place] [address] [address] [employer] [place] [id number] 0 Phone: () - 05/01 CBC w/ auto diff EO % % 0.0 7.0 4.3 FINAL Asimmatt Clemensot a Oncology - [place] [facility], [address] [place] [address] [address] [employer] [place] [id number] 0 Phone: () - 05/01 CBC w/ auto diff BA % % 0.0 2.0 0.6 FINAL Asim Clemensot a Oncology - [place] [facility], [address] [place] [address] [address] [employer] [place] [id number] 0 Phone: () - 05/01 CBC w/ auto diff LY # K/uL 0.4 3.6 1.9 FINAL Asimmatt Clemensot a Oncology - [place] [facility], [address] [place] [address] [address] [employer] [place] [id number] 0 Phone: () - 05/01 CBC w/ auto diff MO # K/uL 0.2 1.3 0.5 FINAL Asim Clemensot a Oncology - [place] [facility], [address] [place] [address] [address] [employer] [place] [id number] 0 Phone: () - 05/01 CBC w/ auto diff EO # K/uL 0.0 0.6 0.2 FINAL Asimmatt Clemensot a Oncology - [place] [facility], [address] [place] [address] [address] [employer] [place] [id number] 0 Phone: () - 05/01 CBC w/ auto diff BA # K/uL 0.0 0.2 0.0 FINAL Asimmatt Clemensot a Oncology - [place] [facility], [address] [place] [address] [address] [employer] [place] [id number] 0 Phone: () - 05/01 CBC w/ auto diff NRBC % #/100W BC 0.0 0.2 0.0 FINAL Asim banerjee Oncology - [place] [facility], [address] [place] [address] [address] [place] [id number] 0 Phone: () - 05/01 CBC w/ auto diff RBC M/uL 3.9 5.1 4.01 FINAL Asim banerjee Oncology - [place] [facility], [address] [place] [address] [address] [place] [id number] 0 Phone: () - 05/01 CBC w/ auto diff HCT % 35.0 48.0 36.8 FINAL Asim banerjee Oncology - [place] [facility], [address] [place] [address] [address] [place] [id number] 0 Phone: () - 05/01 CBC w/ auto diff MCV fL 80.0 104.0 91.8 FINAL Asim bnaerjee Oncology - [place] [facility], [address] [place] [address] [address] [place] [id number] 0 Phone: () - 05/01 CBC w/ auto diff MCH pg 26.0 35.0 31.2 FINAL Asim banerjee Oncology - [place] [facility], [address] [place] [address] [address] [place] [id number] 0 Phone: () - 05/01 CBC w/ auto diff MCHC g/dL 30.0 35.0 34.0 FINAL Asim banerjee Oncology - [place] [facility], [address] [place] [address] [address] [place] [id number] 0 Phone: () - 05/01 CBC w/ auto diff MPV fL 9.5 13.4 9.1 Low FINAL Asim banerjee Oncology - [place] [facility], [address] [place] [address] [address] [place] [id number] 0 Phone: () - 05/01 CBC w/ auto diff RDW % 11.4 16.1 13.90 FINAL Asim banerjee Oncology - [place] [facility], [address] [place] [address] [address] [place] [id number] 0 Phone: () - 05/01 CBC w/ auto diff Auto CBC comme nts Slide review to follow FINAL Asim banerjee Oncology - [place] [facility], [address] [place] [address] [address] [place] [id number] 0 Phone: () - 05/01 CBC w/ auto diff WBC K/uL 3.0 8.9 4.9 FINAL Asim banerjee [facility], [address] [place] [id number] 0 Phone: () - 05/01 CBC w/ auto diff HGB g/dL 11.3 15.2 12.5 FINAL Asim banerjee [facility], [address] [place] [id number] 0 Phone: () - 05/01 CMP Album in g/dL 3.2 5.2 4.4 FINAL Asim banerjee [address] [id number] 0 Phone: () - 05/01 CMP Alkal ine phosp hatas e U/L 46.0 116.0 76 FINAL Asimmatt Clemens [place] [address] [id number] 0 Phone: () - 05/01 CMP ALT/S GPT U/L 7.0 40.0 12 FINAL Asimmatt Clemens[address] [place] [id number] 0 Phone: () - 05/01 CMP AST/S GOT U/L 13.0 40.0 16 FINAL Asimmatt banerjee [address] [id number] 0 Phone: () - 05/01 CMP BUN mg/dL 9.0 23.0 19 FINAL Asim banerjee [address] [id number] 0 Phone: () - 05/01 CMP Calci um mg/dL 8.7 10.4 9.4 FINAL Asim banerjee [address] [id number] 0 Phone: () - 05/01 CMP Chlor ray mmol/L 96.0 114.0 107 FINAL Asimmatt Clemens[address] [place] [id number] 0 Phone: () - 05/01 CMP CO2 mmol/L 20.0 31.0 [address] [id number] 0 Phone: () - 05/01 CMP Creat inine mg/dL 0.5 1.2 0.[address] [id number] 0 Phone: () - 05/01 CMP GFR estim ate ml/min /1.73m ^2 97.0 GFR is calculate d using the CKD-EPI equation. FINAL [address] [id number] 0 Phone: () - 05/01 CMP Gluco se mg/dL 73.0 126.0 150 High FINAL [address] [id number] 0 Phone: () - 05/01 CMP Potas sium mmol/L 3.5 5.[address] [place] [id number] 0 Phone: () - 05/01 CMP Sodiu m mmol/L 136.0 145.[address] [id number] 0 Phone: () - 05/01 CMP Bilir ubin, total mg/dL 0.3 1.2 0.2 Low FINAL [address] [place] [id number] 0 Phone: () - 05/01 CMP Total prote in g/dL 5.7 8.[address] [place] [id number] 0 Phone: () - 06/19 Retic ulocy te count panel Retic ulocy te, absol [place] M/uL 0.02 0.08 0.08 [facility] lis, [address] [place] [id number] 0 Phone: () - 06/19 Retic ulocy te count panel Retic ulocy te count % 0.4 1.6 1.75 High FINAL Asim banerjee Oncology - [place] [facility], [address] [place] [address] 200 [place] [id number] 0 Phone: () - 06/19 Retic ulocy te count panel Immat ure retic ulocy te fract ion, % % 0.0 16.5 10.80 FINAL Asim banerjee Oncology - [place] [facility], [address] [place] [address] 200 [place] [id number] 0 Phone: () - 06/19 Retic ulocy te count panel Retic ulocy te cellu lar hemog lobin pg 28.0 37.0 34.6 FINAL Asim banerjee Oncology - [place], [address] [place] [address] 200 [place] [id number] 0 Phone: () - 06/19 CBC w/ auto diff WBC K/uL 3.0 8.9 8.7 FINAL Asim banerjee Oncology - [place] [facility], [address] [place] [address] 200 [place] [id number] 0 Phone: () - 06/19 CBC w/ auto diff HGB g/dL 11.3 15.2 14.2 FINAL Asim banerjee Oncology - [place], [address] 200 [place] [id number] 0 Phone: () - 06/19 CBC w/ auto diff PLT K/uL 113.0 364.0 282 FINAL Asmi banerjee Oncology - [place] [facility], [address] [place] [id number] 0 Phone: () - 06/19 CBC w/ auto diff Dawna # (ANC) K/uL 1.6 6.6 4.9 FINAL Asim banerjee Oncology - [place], [address] [place] [address] 200 [place] [id number] 0 Phone: () - 06/19 CBC w/ auto diff Dawna % % 43.0 74.0 56.8 FINAL Asim banerjee Oncology - [place], [address] [place] [address] 200 [place] [id number] 0 Phone: () - 06/19 CBC w/ auto diff IG % % 0.0 0.5 0.5 FINAL Asim banerjee Oncology - [place] [facility], [address] [place] [address] 200 [place] [id number] 0 Phone: () - 06/19 CBC w/ auto diff IG # K/uL 0.0 0.03 0.04 High FINAL Asim banerjee Oncology - [place] [facility], [address] [place] [address] 200 [place] [id number] 0 Phone: () - 06/19 CBC w/ auto diff LY % % 14.0 41.0 33.4 FINAL Asim banerjee Oncology - [place] [facility], [address] [place] [id number] 0 Phone: () - 06/19 CBC w/ auto diff MO % % 6.0 15.0 7.0 FINAL Asim banerjee Oncology - [place] [facility], [address] [place] [address] 200 [place] [id number] 0 Phone: () - 06/19 CBC w/ auto diff EO % % 0.0 7.0 1.8 FINAL Asim banerjee Oncology - [place] [facility], [address] [place] [id number] 0 Phone: () - 06/19 CBC w/ auto diff BA % % 0.0 2.0 0.5 FINAL Asim banerjee Oncology - [place] [facility], [address] [place] [id number] 0 Phone: () - 06/19 CBC w/ auto diff LY # K/uL 0.4 3.6 2.9 FINAL Asim banerjee Oncology - [place] [facility], [address] [place] [id number] 0 Phone: () - 06/19 CBC w/ auto diff MO # K/uL 0.2 1.3 0.6 FINAL Asim Eli a Oncology - [place] [facility], [address] [place] [address] 200 [place] [id number] 0 Phone: () - 06/19 CBC w/ auto diff EO # K/uL 0.0 0.6 0.2 FINAL Asim banerjee Oncology - [place] [facility], [address] [place] [address] [address] [place] [id number] 0 Phone: () - 06/19 CBC w/ auto diff BA # K/uL 0.0 0.2 0.0 FINAL Asim banerjee Oncology - [place] [facility], [address] [place] [address] [address] [place] [id number] 0 Phone: () - 06/19 CBC w/ auto diff NRBC % #/100W BC 0.0 0.2 0.0 FINAL Asim banerjee Oncology - [place] [facility], [address] [place] [address] [address] [place] [id number] 0 Phone: () - 06/19 CBC w/ auto diff RBC M/uL 3.9 5.1 4.67 FINAL Asim banerjee Oncology - [place] [facility], [address] [place] [address] [address] [place] [id number] 0 Phone: () - 06/19 CBC w/ auto diff HCT % 35.0 48.0 41.7 FINAL Asim banerjee Oncology - [place] [facility], [address] [place] [address] [address] [place] [id number] 0 Phone: () - 06/19 CBC w/ auto diff MCV fL 80.0 104.0 89.3 FINAL Asim banerjee Oncology - [place] [facility], [address] [place] [address] [address] [place] [id number] 0 Phone: () - 06/19 CBC w/ auto diff MCH pg 26.0 35.0 30.4 FINAL Asim banerjee Oncology - [place] [facility], [address] [place] [address] [address] [place] [id number] 0 Phone: () - 06/19 CBC w/ auto diff MCHC g/dL 30.0 35.0 34.1 FINAL Asim banerjee Oncology - [place] [facility], [address] [place] [address] [address] [place] [id number] 0 Phone: () - 06/19 CBC w/ auto diff MPV fL 9.5 13.4 8.8 Low FINAL Asim banerjee [facility] lis, [address] [place] [address] [address] [place] [id number] 0 Phone: () - 06/19 CBC w/ auto diff RDW % 11.4 16.1 13.10 FINAL Asim banerjee [facility], [address] [place] [address] [address] [place] [id number] 0 Phone: () - 06/19 LDH panel LDH U/L 120.0 246.0 246 FINAL Asim banerjee [facility], [address] [facility] [id number] 0 Phone: () - 06/19 CMP Album in g/dL 3.2 5.2 4.6 FINAL Asim banerjee [facility], [address] [facility] [id number] 0 Phone: () - 06/19 CMP Alkal ine phosp hatas e U/L 46.0 116.0 91 [facility]AL [facility] [address] [place] [address] [id number] 0 Phone: () - 06/19 CMP ALT/S GPT U/L 7.0 40.0 27 [facility], [address] [facility] [id number] 0 Phone: () - 06/19 CMP AST/S GOT U/L 13.0 40.0 34 [facility], [address] [place] [address] [id number] 0 Phone: () - 06/19 CMP BUN mg/dL 9.0 23.0 11 [facility], [address] [place] [address] [id number] 0 Phone: () - 06/19 CMP Calci um mg/dL 8.7 10.4 9.4 FINAL Asim Clemens a [facility], [address] [place] [address] [id number] 0 Phone: () - 06/19 CMP Chlor ray mmol/L 96.0 114.0 107 [facility]AL [facility], [address] [facility] [address] [facility] [id number] 0 Phone: () - 06/19 CMP CO2 [...] the 96 hour stability window. FINAL Asim Cornelius [facility], [facility] [address] [id number] 0 Phone: () - 06/19 CMP Creat inine mg/dL 0.5 1.2 0.68 FINAL Asim [place] [address] [id number] 0 Phone: () - 06/19 CMP GFR estim ate ml/min /1.73m ^2 103.9 GFR is calculate d using the CKD-EPI equation. FINAL [place] [address] [id number] 0 Phone: () - 06/19 CMP Gluco se mg/dL 73.0 126.0 95 FINAL Asim [facility] [address] [facility] [address] [id number] 0 Phone: () - 06/19 CMP Potas sium mmol/L 3.5 5.1 4.1 [facility] [address] [facility] [address] [id number] 0 Phone: () - 06/19 CMP Sodiu m mmol/L 136.0 145.0 140 FINAL [facility] [address] [facility] [address] [id number] 0 Phone: () - 06/19 CMP Bilir ubin, total mg/dL 0.3 1.2 0.2 Low [facility] [address] [id number] [phone] Phone: () - 06/19 CMP Total prote in g/dL 5.7 8.2 6.9 FINAL Asim Cornelius [facility] [place], [address] [facility] [id number] 0 Phone: () - 06/19 Path perip heral blood slide revie w panel Patho logy/ Cytol ogy Morph ology SEE RESULTS BELOW CASE REPORTSpe cial Hematolog y Report Case: [id number] ing Provider: Asim Cornelius MD Collected :06/19/20 21 1340Order ing Location: [facility] Received: 1 1734Patho logist: Elvie Hernández MDSpecime n: BloodFINA L DIAGNOSIS PERIPHERA L BLOOD:1. Negative for circulati ng blasts2. Within normal limitsEle ctronical ly signed by Elvie Hernández MD on 06/20/2021 at 1:03 PMCOMMENT This case was also reviewed by Mis hill [place], MS ([facility]).CL INICAL INFORMATI ONThe patient is a 46-year-o ld female with a history of acute lymphoid leukemia. 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 Staging bone marrow biopsy was negative forlympho ma ([id number]) . Her most recent periphera l blood morpholog y 2019 ([id number] ,05/01/2020 ) was negative for circulati ng [...] blood smear.ADD ITIONAL INFORMATI ONInterpr eted at [facility], [facility] - [address], [place], [place] [address]Yycs Performed by:[facility] - [place], [place] [address]Essx e : FINAL Asmi Cornelius 01/19 [facility] other lab See speech pathologist assistant d 05/01 [facility] other lab See speech pathologist assistant d 05/06 LDH panel LDH U/L 120.0 246.0 191 FINAL Deepthi Steelshannon [facility], [address] [place] [id number] 0 Phone: () - 05/06 CMP Album in g/dL 3.2 5.2 4.7 FINAL Deepthi Steelshannon [facility], [address] [place] [id number] 0 Phone: () - 05/06 CMP Alkal ine phosp hatas e U/L 46.0 116.0 73 FINAL Deepthi Echo [facility], [address] [facility] [address] [id number] 0 Phone: () - 05/06 CMP ALT/S GPT U/L 7.0 40.0 19 FINAL Deepthi Clemens lav[place] [address] [id number] 0 Phone: () - 05/06 CMP AST/S GOT U/L 13.0 40.0 21 FINAL Deep[place] [address] [id number] 0 Phone: () - 05/06 CMP BUN mg/dL 9.0 23.0 16.0 FINAL Deepthi Dodge [address] [id number] 0 Phone: () - 05/06 CMP Calci um mg/dL 8.7 10.4 9.8 FINAL Deepthi Dodge [place] [address] [id number] 0 Phone: () - 05/06 CMP Chlor ray mmol/L 96.0 114.0 107 FINAL Deepthi Steelyobany [place] [address] [id number] 0 Phone: () - 05/06 CMP CO2 [...] the 96 hour stability window. FINAL Deep[place] [address] [id number] 0 Phone: () - 05/06 CMP Creat inine mg/dL 0.5 1.2 0.80 FINAL Deepthi Dodge [place] [address] [address] [facility] [address] [id number] 0 Phone: () - 05/06 CMP GFR estim ate ml/min /1.73m ^2 90.1 GFR is calculate d using the CKD-EPI equation. FINAL [facility], [address] [id number] 0 Phone: () - 05/06 CMP Gluco se mg/dL 73.0 126.0 128 High FINAL Deepthi Dodge [facility], [address] [id number] 0 Phone: () - 05/06 CMP Potas sium mmol/L 3.5 5.1 3.9 FINAL Deepthi Dodge [facility], [address] [facility] [address] [place] [address] [id number] 0 Phone: () - 05/06 CMP Sodiu m mmol/L 136.0 145.0 142 FINAL Deepthi Dodge [facility], [address] [id number] 0 Phone: () - 05/06 CMP Bilir ubin, total mg/dL 0.3 1.2 0.2 Low FINAL Deepthi Dodge [facility], [address] [facility] [address] [place] [address] [id number] 0 Phone: () - 05/06 CMP Total prote in g/dL 5.7 8.2 7.1 FINAL Deepthi Dodge [facility], [address] [id number] 0 Phone: () - 05/06 Retic ulocy te count panel Retic ulocy te, absol [place] M/uL 0.02 0.08 0.[address] [facility], [address] [place] [address] 200 [facility] [id number] 0 Phone: () - 05/06 Retic ulocy te count panel Retic ulocy te count % 0.4 1.6 [address] [facility], [address] [place] [address] [address] [facility] [id number] 0 Phone: () - 05/06 Retic ulocy te count panel Immat ure retic ulocy te fract ion, % % 0.0 16.5 9.70 FINAL Deepthi banerjee [facility] - [place] [facility], [address] [place] [address] [address] [place] [id number] 0 Phone: () - 05/06 Retic ulocy te count panel Retic ulocy te cellu lar hemog lobin pg 28.0 37.0 33.0 FINAL Deepthi banerjee Oncology - [place] [facility], [address] [place] [address] [address] [place] [id number] 0 Phone: () - 05/06 CBC w/ auto diff WBC K/uL 3.0 8.9 8.4 FINAL Deepthi banerjee Oncology - [place] [facility], [address] [place] [id number] 0 Phone: () - 05/06 CBC w/ auto diff HGB g/dL 11.3 15.2 13.6 FINAL Deepthi banerjee Oncology - [place] [facility], [address] [place] [address] [address] [place] [id number] 0 Phone: () - 05/06 CBC w/ auto diff PLT K/uL 113.0 364.0 266 FINAL Deepthi banerjee Oncology - [place] [facility], [address] [place] [id number] 0 Phone: () - 05/06 CBC w/ auto diff Dawna # (ANC) K/uL 1.6 6.6 3.9 FINAL Deepthi banerjee Oncology - [place] [facility], [address] [place] [address] [address] [place] [id number] 0 Phone: () - 05/06 CBC w/ auto diff Dawna % % 43.0 74.0 46.7 FINAL Deepthi banerjee Oncology - [place] [facility], [address] [place] [address] [address] [place] [id number] 0 Phone: () - 05/06 CBC w/ auto diff IG % % 0.0 0.5 0.5 FINAL Deepthi Clemens [place] [facility] - [place] [facility], [address] [place] [address] [address] [place] [id number] 0 Phone: () - 05/06 CBC w/ auto diff IG # K/uL 0.0 0.03 0.04 High FINAL Deepthi Eli a [facility] [place], [address] [place] [address] [address] [place] [id number] 0 Phone: () - 05/06 CBC w/ auto diff LY % % 14.0 41.0 44.8 High FINAL Deepthi Eli a [facility] - [place], [address] [place] [address] [address] [place] [id number] 0 Phone: () - 05/06 CBC w/ auto diff MO % % 6.0 15.0 6.2 FINAL Deepthi Eli a [facility] - [place], [address] [place] [address] [address] [place] [id number] 0 Phone: () - 05/06 CBC w/ auto diff EO % % 0.0 7.0 1.4 FINAL Deepthi Eli a [facility] - [place], [address] [place] [id number] 0 Phone: () - 05/06 CBC w/ auto diff BA % % 0.0 2.0 0.4 FINAL Deepthi Eli a [facility] - [place], [address] [place] [address] [address] [place] [id number] 0 Phone: () - 05/06 CBC w/ auto diff LY # K/uL 0.4 3.6 3.8 High FINAL Deepthi Eli a [facility] - [place], [address] [place] [address] [address] [place] [id number] 0 Phone: () - 05/06 CBC w/ auto diff MO # K/uL 0.2 1.3 0.5 FINAL Deepthi banerjee [facility] - [place], [address] [place] [address] [address] [place] [id number] 0 Phone: () - 05/06 CBC w/ auto diff EO # K/uL 0.0 0.6 0.1 FINAL Deepthi banerjee [facility] - [place], [address] [place] [address] [address] [place] [id number] 0 Phone: () - 05/06 CBC w/ auto diff BA # K/uL 0.0 0.2 0.0 FINAL Deepthi banerjee [facility] - [place], [address] [place] [address] [address] [place] [id number] 0 Phone: () - 05/06 CBC w/ auto diff NRBC % #/100W BC 0.0 0.2 0.0 FINAL Deepthi banerjee [facility] - [place], [address] [place] [address] [address] [place] [id number] 0 Phone: () - 05/06 CBC w/ auto diff RBC M/uL 3.9 5.1 4.57 FINAL [facility] [place] [facility], [address] [place] [address] [address] [place] [id number] Phone: () - 05/06 CBC w/ auto diff HCT % 35.0 48.0 40.7 FINAL [facility] [place] [facility], [address] [place] [address] [address] [place] [id number] Phone: () - 05/06 CBC w/ auto diff MCV fL 80.0 104.0 89.1 FINAL Deepthi [facility] [place], [address] [place] [address] [address] [place] [id number] Phone: () - 05/06 CBC w/ auto diff MCH pg 26.0 35.0 29.8 FINAL [facility] [place] [facility], [address] [place] [address] [address] [place] [id number] [phone] Phone: () - 05/06 CBC w/ auto diff MCHC g/dL 30.0 35.0 33.4 FINAL [facility] [place], [address] [place] [address] [address] [place] [id number] Phone: () - 05/06 CBC w/ auto diff MPV fL 9.5 13.4 9.3 Low FINAL [facility] [place], [address] [place] [address] [address] [place] [id number] Phone: () - 05/06 CBC w/ auto diff RDW % 11.4 16.1 13.60 FINAL [facility] [place] [facility], [address] [place] [address] [address] [facility] [id number] [phone] Phone: () - Medications Date Name [...] (disorder) Active Vital Signs Date Type Value 05/01/2020 Pain Scale 8.00 05/01/2020 Body Temperature 98.20 06/19/2021 Body Temperature 98.20 06/19/2021 BSA 1.82 06/19/2021 BMI 32.56 06/19/2021 Height 62.00 06/19/2021 Weight 178.00 06/19/2021 Pain Scale 0.00 06/19/2021 Intravascular Systolic 168 06/19/2021 Intravascular Diastolic 102 06/19/2021 Oxygen Saturation 98.00 06/19/2021 Respiratory Rate 16.00 06/19/2021 Heart Beat 96.00 05/06/2023 Body Temperature 98.50 05/06/2023 Heart Beat 87.00 05/06/2023 BSA 1.79 05/06/2023 BMI 31.51 05/06/2023 Respiratory Rate 16.00 05/06/2023 Weight 172.30 05/06/2023 Pain Scale 6.00 05/06/2023 Intravascular Systolic 148 05/06/2023 Intravascular Diastolic 88 05/06/2023 Oxygen Saturation 98.00 05/06/2023 Height 62.00
--- OUTSIDE RECORDS SUMMARY | 2025-09-08 13:09 | XMS_ITS | CCD ---
Author Name Interface, [id number] lity Address [address] [place] [address] [address], [place] [address] [facility] Address [address] [facility] [address], [place] [address] Care Team Providers Care Store Operations Manager Name Role Phone Echo HUYNH, Deepthi Unavailable Unavailable Dejon HUYNH, Cheryle Unavailable Unavailable Allergies and Adverse Reactions Medication/Group Name Reaction Severity Date adhesive 05/06/2023 Citalopram Analogues no mappable FDB reaction 05/06/2023 escitalopram oxalate no mappable FDB reaction 05/06/2023 Reason for Visit LAB 15 MIN Functional Status Date Name/Question Score/Answer 07/07/2019 ECOG performance status - grade 1 1 07/28/2019 ECOG performance status - grade 1 1 08/01/2019 ECOG performance status - grade 1 1 08/02/2019 ECOG performance status - grade 1 1 08/16/2019 ECOG performance status - grade 1 1 09/08/2019 ECOG performance status - grade 1 1 09/12/2019 ECOG performance status - grade 1 1 09/19/2019 [place]sky performance status 80 06/19/2021 ECOG performance status - grade 1 1 Medications Date Name Route Dose Frequency Instructions Start Date End Date Status Fill Status Indication 06/19 Amitrip tyline Oral inactive 05/06 Lisinop ril Oral orally 10.0 mg daily active 05/06 Albuter ol HFA Inhaler 90 mcg/act uation PRN active 09/19 Oxycodo ne Oral PO Q4H PRN 1-3tabs inactive 05/06 Furosem ray Oral daily active 09/16 Hydromo rphone Oral PO 2.0 TABLET (S) Q4H PRN 09/12 inactive 09/16 Chlorhe xidine Mouthwa sh Swish and Spit 15.0 ML BID 09/12 inactive 09/16 Lidocai ne-Pril ocaine Topical Cream 2.5 %-2.5 % Topical 1.0 TOPICA L APPLIC ATION PRN 09/12 inactive 09/16 Famotid ine Oral PO 1.0 TABLET (S) BID 09/12 inactive 09/16 Furosem ray Oral PO 1.0 TABLET (S) BID PRN 09/12 inactive 09/16 Pramipe xole Oral PO 5.0 TABLET (S) QHS 09/12 inactive 09/16 Omepraz ole-Sod ium Bicarbo becky Oral 40 mg-1,10 0 mg PO 1.0 CAPSUL E(S) daily 09/12 inactive 09/16 Fluoxet ine Oral PO 1.0 CAPSUL E(S) daily 09/12 inactive 09/16 Acyclov ir Oral PO 1.0 TABLET (S) BID 07/07 inactive 09/16 Lisinop ril Oral PO 1.0 TABLET (S) daily 07/07 inactive 09/16 Sulfame thoxazo le-Trim ethopri m Oral 400 mg-80 mg (Reg Str) PO 1.0 TABLET (S) daily 07/07 inactive 09/16 Lorazep am Oral PO 2.0 TABLET (S) PRN 05/30 inactive Problems Diagnosis Status Date of Diagnosis Resolution Date Gastroesophageal reflux disease (disorder) Active Acute lymphoid leukemia, dis ease (disorder) Active Body mass index (BMI) 26.0-26.9, adult Inactive Body mass index (BMI) 27.0-27.9, adult Inactive Compression fracture (disorder) Active Drug prophylaxis (procedure) Active Body mass index (BMI) 25.0-25.9, adult Inactive 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
--- OUTSIDE RECORDS SUMMARY | 2025-09-08 13:09 | XMS_ITS | CCD ---
Author Name Interface, [id number] lity Address [address] [place] [address] [address] [address] [facility] Address [address] [facility] [address], [place] [address] Care Team Providers Care Support Dba Name Role Phone Echo HUYNH, Deepthi Unavailable [...]
--- OUTSIDE RECORDS SUMMARY | 2025-09-08 13:10 | XMS_ITS ---
Author Name Interface, [id number] lity Address [address] [place] [address] [address] [place] [address] [facility] Oncology Address [address] [place] [address] [address] [place] [address] Allergies and Adverse Reactions Medication/Group Name Reaction [...] CASE REPORTSpe cial Hematolog y Report Case: [id number] ing Provider: Asim Cornelius MD Collected :05/01/20 20 1447Order ing Location: [facility] Received: 0 1212Patho logist: [...] iagnosed by left neck lymph node biopsy ([id number] , 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 Staging bonemarro w biopsy [...] specimens .ADDITION AL INFORMATI ONInterpr eted at [facility], [facility] - [address], [facility] [place] [place] [address]C[place]ap Performed by:[facility] - [facility] [place], [place] [address]Akdl e [phone] FINAL Asim Ashli 05/01 Retic ulocy te count panel Retic ulocy te, absol kotz[place]ue M/uL 0.02 0.08 0.08 FINAL Asim Cornelius Sarathot a Oncology - [facility] lis, [address] [place] [address] [address] [place] [phone] 0 Phone: () - 05/01 Retic ulocy te count panel Retic ulocy te count % 0.4 1.6 2.07 High FINAL Asim Cornelius [facility], [address] [place] [address] [address] [place] [phone] 0 Phone: () - 05/01 Retic ulocy te count panel Immat ure retic ulocy te fract ion, % % 0.0 16.5 10.10 FINAL Asim banerjee Oncology - [facility], [address] [place] [address] [address] [place] [phone] 0 Phone: () - 05/01 Retic ulocy te count panel Retic ulocy te cellu lar hemog lobin pg 28.0 37.0 36.5 FINAL Asim banerjee Oncology - [facility], [address] [place] [address] [address] [place] [id number] 0 Phone: () - 05/01 Smear revie w panel CBC Smear revie w comme nts Large and-or giant platele ts present Atypica l (Reacti ve and/or Variant ) Lymphs present Abnor mal FINAL Asim banerjee Oncology - [facility], [address] [place] [address] [address] [place] [id number] 0 Phone: () - 05/01 CBC w/ auto diff PLT K/uL 113.0 364.0 257 FINAL Asim banerjee Oncology - [facility], [address] [place] [id number] 0 Phone: () - 05/01 CBC w/ auto diff Dawna # (ANC) K/uL 1.6 6.6 2.2 FINAL Asim banerjee Oncology - [facility], [address] [place] [address] [address] [place] [id number] 0 Phone: () - 05/01 CBC w/ auto diff Dawna % % 43.0 74.0 46.0 FINAL Asim banerjee Oncology - [facility], [address] [place] [address] [address] [place] [id number] 0 Phone: () - 05/01 CBC w/ auto diff IG % % 0.0 0.5 0.4 FINAL Asim banerjee Oncology - [facility], [address] [place] [address] [address] [place] [id number] 0 Phone: () - 05/01 CBC w/ auto diff IG # K/uL 0.0 0.03 0.02 FINAL Asim banerjee Oncology - [facility], [address] [place] [address] [address] [place] [id number] 0 Phone: () - 05/01 CBC w/ auto diff LY % % 14.0 41.0 38.7 FINAL Asim Eli a Oncology - [place], [address] [place] [address] 200 [facility] [place] [id number] 0 Phone: () - 05/01 CBC w/ auto diff MO % % 6.0 15.0 10.0 FINAL Asimmatt Clemensot a Oncology - [place], [address] [place] [address] 200 [facility] [place] [id number] 0 Phone: () - 05/01 CBC w/ auto diff EO % % 0.0 7.0 4.3 FINAL Asimmatt Clemensot a Oncology - [place], [address] [place] [address] 200 [facility] [place] [id number] 0 Phone: () - 05/01 CBC w/ auto diff BA % % 0.0 2.0 0.6 FINAL Asim Clemensot a Oncology - [place], [address] [place] [address] 200 [facility] [place] [id number] 0 Phone: () - 05/01 CBC w/ auto diff LY # K/uL 0.4 3.6 1.9 FINAL Asimmatt Clemensot a Oncology - [place], [address] [place] [address] 200 [facility] [place] [id number] 0 Phone: () - 05/01 CBC w/ auto diff MO # K/uL 0.2 1.3 0.5 FINAL Asim Clemensot a Oncology - [place] [facility], [address] [place] [address] 200 [facility] [place] [id number] 0 Phone: () - 05/01 CBC w/ auto diff EO # K/uL 0.0 0.6 0.2 FINAL Asimmatt Clemensot a Oncology - [place] [facility], [address] [place] [address] 200 [facility] [place] [id number] 0 Phone: () - 05/01 CBC w/ auto diff BA # K/uL 0.0 0.2 0.0 FINAL Asimmatt Clemensot a Oncology - [place], [address] [place] [address] [address] [facility] [place] [id number] 0 Phone: () - 05/01 CBC w/ auto diff NRBC % #/100W BC 0.0 0.2 0.0 FINAL Asim banerjee Oncology - [place], [address] [place] [address] [address] [place] [id number] 0 Phone: () - 05/01 CBC w/ auto diff RBC M/uL 3.9 5.1 4.01 FINAL Asim banerjee Oncology - [place] [facility], [address] [place] [address] [address] [place] [id number] 0 Phone: () - 05/01 CBC w/ auto diff HCT % 35.0 48.0 36.8 FINAL Asim banerjee Oncology - [place] [facility], [address] [place] [address] [address] [place] [id number] 0 Phone: () - 05/01 CBC w/ auto diff MCV fL 80.0 104.0 91.8 FINAL Asim banerjee Oncology - [place] [facility], [address] [place] [address] [address] [place] [id number] 0 Phone: () - 05/01 CBC w/ auto diff MCH pg 26.0 35.0 31.2 FINAL Asim banerjee Oncology - [place] [facility], [address] [place] [address] [address] [place] [id number] 0 Phone: () - 05/01 CBC w/ auto diff MCHC g/dL 30.0 35.0 34.0 FINAL Asim banerjee Oncology - [place] [facility], [address] [place] [address] [address] [place] [id number] 0 Phone: () - 05/01 CBC w/ auto diff MPV fL 9.5 13.4 9.1 Low FINAL Asim banerjee Oncology - [place] [facility], [address] [place] [address] [address] [place] [id number] 0 Phone: () - 05/01 CBC w/ auto diff RDW % 11.4 16.1 13.90 FINAL Asim banerjee Oncology - [place] [facility], [address] [place] [address] [address] [place] [id number] 0 Phone: () - 05/01 CBC w/ auto diff Auto CBC comme nts Slide review to follow FINAL Asim banerjee Oncology - [place], [address] [place] [address] [address] [place] [id number] 0 Phone: () - 05/01 CBC w/ auto diff WBC K/uL 3.0 8.9 4.9 FINAL Asim banerjee [facility], [address] [place] [id number] 0 Phone: () - 05/01 CBC w/ auto diff HGB g/dL 11.3 15.2 12.5 FINAL Asim banerjee [facility], [address] [place] [id number] 0 Phone: () - 05/01 CMP Album in g/dL 3.2 5.2 4.4 FINAL Asim banerjee [address] [phone] 0 Phone: () - 05/01 CMP Alkal ine phosp hatas e U/L 46.0 116.0 76 FINAL Asimmatt Clemens lavonne [address] [phone] 0 Phone: () - 05/01 CMP ALT/S GPT U/L 7.0 40.0 12 FINAL Asimmatt Clemens[address] [place] [phone] 0 Phone: () - 05/01 CMP AST/S GOT U/L 13.0 40.0 16 FINAL Asimmatt banerjee [address] [phone] 0 Phone: () - 05/01 CMP BUN mg/dL 9.0 23.0 19 FINAL Asim banerjee [address] [phone] 0 Phone: () - 05/01 CMP Calci um mg/dL 8.7 10.4 9.4 FINAL Asim banerjee [address] [id number] 0 Phone: () - 05/01 CMP Chlor ray mmol/L 96.0 114.0 107 FINAL Asimmatt Clemens[address] [place] [phone] 0 Phone: () - 05/01 CMP CO2 mmol/L 20.0 31.0 [address] [id number] 0 Phone: () - 05/01 CMP Creat inine mg/dL 0.5 1.2 0.[address] [id number] 0 Phone: () - 05/01 CMP GFR estim ate ml/min /1.73m ^2 97.0 GFR is calculate d using the CKD-EPI equation. FINAL [address] [phone] 0 Phone: () - 05/01 CMP Gluco se mg/dL 73.0 126.0 150 High FINAL [address] [id number] 0 Phone: () - 05/01 CMP Potas sium mmol/L 3.5 5.[address] [place] [id number] 0 Phone: () - 05/01 CMP Sodiu m mmol/L 136.0 145.[address] [phone] 0 Phone: () - 05/01 CMP Bilir ubin, total mg/dL 0.3 1.2 0.2 Low FINAL [address] [place] [phone] 0 Phone: () - 05/01 CMP Total prote in g/dL 5.7 8.[address] [place] [id number] 0 Phone: () - 06/19 Retic ulocy te count panel Retic ulocy te, absol [place] M/uL 0.02 0.08 0.08 [facility] [place] [place] lis, [address] [place] [id number] 0 Phone: () - 06/19 Retic ulocy te count panel Retic ulocy te count % 0.4 1.6 1.75 High FINAL Asim banerjee Oncology - [facility], [address] [place] [address] 200 [place] [id number] 0 Phone: () - 06/19 Retic ulocy te count panel Immat ure retic ulocy te fract ion, % % 0.0 16.5 10.80 FINAL Asim banerjee Oncology - [place] [facility], [address] [place] [address] 200 [place] [phone] 0 Phone: () - 06/19 Retic ulocy te count panel Retic ulocy te cellu lar hemog lobin pg 28.0 37.0 34.6 FINAL Asim banerjee Oncology - [facility], [address] [place] [address] 200 [place] [id number] 0 Phone: () - 06/19 CBC w/ auto diff WBC K/uL 3.0 8.9 8.7 FINAL Asim banerjee Oncology - [place] [facility], [address] [place] [address] 200 [place] [id number] 0 Phone: () - 06/19 CBC w/ auto diff HGB g/dL 11.3 15.2 14.2 FINAL Asim banerjee Oncology - [facility], [address] [place] [id number] 0 Phone: () - 06/19 CBC w/ auto diff PLT K/uL 113.0 364.0 282 FINAL Asim banerjee Oncology - [facility], [address] [place] [id number] 0 Phone: () - 06/19 CBC w/ auto diff Dawna # (ANC) K/uL 1.6 6.6 4.9 FINAL Asim banerjee Oncology - [facility], [address] [place] [address] 200 [place] [id number] 0 Phone: () - 06/19 CBC w/ auto diff Dawna % % 43.0 74.0 56.8 FINAL Asim banerjee Oncology - [facility], [address] [place] [address] 200 [place] [id number] 0 Phone: () - 06/19 CBC w/ auto diff IG % % 0.0 0.5 0.5 FINAL Asim banerjee Oncology - [place] [facility], [address] [place] [address] 200 [place] [id number] 0 Phone: () - 06/19 CBC w/ auto diff IG # K/uL 0.0 0.03 0.04 High FINAL Asim banerjee Oncology - [place] [facility], [address] [place] [address] 200 [place] [id number] 0 Phone: () - 06/19 CBC w/ auto diff LY % % 14.0 41.0 33.4 FINAL Asim banerjee Oncology - [place] [facility], [address] [place] [id number] 0 Phone: () - 06/19 CBC w/ auto diff MO % % 6.0 15.0 7.0 FINAL Asim banerjee Oncology - [place] [facility], [address] [place] [address] 200 [place] [id number] 0 Phone: () - 06/19 CBC w/ auto diff EO % % 0.0 7.0 1.8 FINAL Asim banerjee Oncology - [place] [facility], [address] [place] [id number] 0 Phone: () - 06/19 CBC w/ auto diff BA % % 0.0 2.0 0.5 FINAL Asim banerjee Oncology - [place] [facility], [address] [place] [id number] 0 Phone: () - 06/19 CBC w/ auto diff LY # K/uL 0.4 3.6 2.9 FINAL Asim banerjee Oncology - [place] [facility], [address] [place] [phone] 0 Phone: () - 06/19 CBC w/ auto diff MO # K/uL 0.2 1.3 0.6 FINAL Asim Eli a Oncology - [place] [facility], [address] [place] [address] 200 [place] [id number] 0 Phone: () - 06/19 CBC w/ auto diff EO # K/uL 0.0 0.6 0.2 FINAL Asim banerjee Oncology - [place] [facility], [address] [place] [address] [address] [place] [id number] 0 Phone: () - 06/19 CBC w/ auto diff BA # K/uL 0.0 0.2 0.0 FINAL Asim banerjee Oncology - [place] [facility], [address] [place] [address] [address] [place] [id number] 0 Phone: () - 06/19 CBC w/ auto diff NRBC % #/100W BC 0.0 0.2 0.0 FINAL Asim banerjee Oncology - [place] [facility], [address] [place] [address] [address] [place] [id number] 0 Phone: () - 06/19 CBC w/ auto diff RBC M/uL 3.9 5.1 4.67 FINAL Asim banerjee Oncology - [place] [facility], [address] [place] [address] [address] [place] [id number] 0 Phone: () - 06/19 CBC w/ auto diff HCT % 35.0 48.0 41.7 FINAL Asim banerjee Oncology - [place] [facility], [address] [place] [address] [address] [place] [id number] 0 Phone: () - 06/19 CBC w/ auto diff MCV fL 80.0 104.0 89.3 FINAL Asim banerjee Oncology - [place] [facility], [address] [place] [address] [address] [place] [id number] 0 Phone: () - 06/19 CBC w/ auto diff MCH pg 26.0 35.0 30.4 FINAL Asim banerjee Oncology - [place] [facility], [address] [place] [address] [address] [place] [id number] 0 Phone: () - 06/19 CBC w/ auto diff MCHC g/dL 30.0 35.0 34.1 FINAL Asim banerjee Oncology - [place] [facility], [address] [place] [address] [address] [place] [id number] 0 Phone: () - 06/19 CBC w/ auto diff MPV fL 9.5 13.4 8.8 Low FINAL Asim banerjee [facility] lis, [address] [place] [address] [address] [place] [id number] 0 Phone: () - 06/19 CBC w/ auto diff RDW % 11.4 16.1 13.10 FINAL Asim banerjee [facility], [address] [place] [address] [address] [place] [id number] 0 Phone: () - 06/19 LDH panel LDH U/L 120.0 246.0 246 FINAL Asim banerjee [facility], [address] [facility] [phone] 0 Phone: () - 06/19 CMP Album in g/dL 3.2 5.2 4.6 FINAL Asim banerjee [facility], [address] [facility] [phone] 0 Phone: () - 06/19 CMP Alkal ine phosp hatas e U/L 46.0 116.0 91 FINAL [facility], [address] [place] [address] [phone] 0 Phone: () - 06/19 CMP ALT/S GPT U/L 7.0 40.0 27 FINAL [facility], [address] [facility] [id number] 0 Phone: () - 06/19 CMP AST/S GOT U/L 13.0 40.0 34 FINAL [facility], [address] [place] [address] [phone] 0 Phone: () - 06/19 CMP BUN mg/dL 9.0 23.0 11 FINAL [facility], [address] [place] [address] [phone] 0 Phone: () - 06/19 CMP Calci um mg/dL 8.7 10.4 9.4 FINAL Asim Clemens a [facility], [address] [place] [address] [phone] 0 Phone: () - 06/19 CMP Chlor ray mmol/L 96.0 114.0 107 FINAL [facility], [address] [facility] [phone] 0 Phone: () - 06/19 CMP CO2 [...] 96 hour stability window. FINAL Asim Cornelius [facility], [facility] [address] [id number] 0 Phone: () - 06/19 CMP Creat inine mg/dL 0.5 1.2 0.68 FINAL Asim [place] [address] [id number] 0 Phone: () - 06/19 CMP GFR estim ate ml/min /1.73m ^2 103.9 GFR is calculate d using the CKD-EPI equation. FINAL [place] [address] [id number] 0 Phone: () - 06/19 CMP Gluco se mg/dL 73.0 126.0 95 FINAL Asim [facility] [address] [phone] 0 Phone: () - 06/19 CMP Potas sium mmol/L 3.5 5.1 4.1 [facility] [address] [phone] 0 Phone: () - 06/19 CMP Sodiu m mmol/L 136.0 145.0 140 FINAL [facility] [address] [phone] 0 Phone: () - 06/19 CMP Bilir ubin, total mg/dL 0.3 1.2 0.2 Low [facility] [address] [id number] 0 Phone: () - 06/19 CMP Total prote in g/dL 5.7 8.2 6.9 FINAL Asim Cornelius [facility] [place], [address] [facility] [phone] 0 Phone: () - 06/19 Path perip heral blood slide revie w panel Patho logy/ Cytol ogy Morph ology SEE RESULTS BELOW CASE REPORTSpe cial Hematolog y Report Case: [id number] ing Provider: Asim Cornelius MD Collected :06/19/20 21 1340Order ing Location: [facility] Received: 1 1734Patho logist: Evlie Hernández MDSpecime n: BloodFINA L DIAGNOSIS PERIPHERA L BLOOD:1. Negative for circulati ng blasts2. Within normal limitsEle ctronical ly signed by Elvie Hernández MD on 06/20/2021 at 1:03 PMCOMMENT This case was also reviewed by Mis hill [place], [place] ([facility]).CL INICAL INFORMATI ONThe patient is a 46-year-o ld female with a history of acute lymphoid leukemia. 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 Staging bone marrow biopsy was negative forlympho ma ([id number]) . Her most recent periphera l blood morpholog y 2019 ([id number] ,05/01/2020 ) was negative for circulati ng [...] blood smear.ADD ITIONAL INFORMATI ONInterpr eted at [facility], [facility] - [address], [place], [place] [address] Performed by:[facility] - [place], [place] [address]Zutk e : FINAL Asim Cornelius 01/19 [facility] See securities lending trader d 05/01 [facility] [place] See securities lending trader d 05/06 LDH panel LDH U/L 120.0 246.0 191 FINAL Deepthi Steelshannon [facility], [address] [place] [phone] 0 Phone: () - 05/06 CMP Album in g/dL 3.2 5.2 4.7 FINAL Deepthi Steelshannon [facility], [address] [place] [phone] 0 Phone: () - 05/06 CMP Alkal ine phosp hatas e U/L 46.0 116.0 73 FINAL Deepthi Echo [facility], [address] [id number] 0 Phone: () - 05/06 CMP ALT/S GPT U/L 7.0 40.0 19 FINAL Deepthi Clemens lav[place] [address] [phone] 0 Phone: () - 05/06 CMP AST/S GOT U/L 13.0 40.0 21 FINAL [place] [address] [phone] 0 Phone: () - 05/06 CMP BUN mg/dL 9.0 23.0 16.0 FINAL Deepthi Dodge [address] [id number] 0 Phone: () - 05/06 CMP Calci um mg/dL 8.7 10.4 9.8 FINAL Deepthi Dodge [place] [address] [phone] 0 Phone: () - 05/06 CMP Chlor ray mmol/L 96.0 114.0 107 FINAL Deepthi Steelyobany [place] [address] [id number] 0 Phone: () - 05/06 CMP CO2 [...] the 96 hour stability window. FINAL Deep[place] [address] [phone] 0 Phone: () - 05/06 CMP Creat inine mg/dL 0.5 1.2 0.80 FINAL Deepthi Dodge [place] [address] [address] [phone] 0 Phone: () - 05/06 CMP GFR estim ate ml/min /1.73m ^2 90.1 GFR is calculate d using the CKD-EPI equation. FINAL [facility], [address] [id number] 0 Phone: () - 05/06 CMP Gluco se mg/dL 73.0 126.0 128 High FINAL Deepthi Dodge [facility], [address] [phone] 0 Phone: () - 05/06 CMP Potas sium mmol/L 3.5 5.1 3.9 FINAL Deepthi Dodge [facility], [address] [facility] [address] [place] [address] [id number] 0 Phone: () - 05/06 CMP Sodiu m mmol/L 136.0 145.0 142 FINAL Deepthi Dodge [facility], [address] [phone] 0 Phone: () - 05/06 CMP Bilir ubin, total mg/dL 0.3 1.2 0.2 Low FINAL Deepthi Dodge [facility], [address] [facility] [address] [place] [address] [id number] 0 Phone: () - 05/06 CMP Total prote in g/dL 5.7 8.2 7.1 FINAL Deepthi Dodge [facility], [address] [phone] 0 Phone: () - 05/06 Retic ulocy te count panel Retic ulocy te, absol [place] M/uL 0.02 0.08 0.07 FINAL Deepthi Dodge [facility], [address] [place] [address] 200 [facility] [phone] 0 Phone: () - 05/06 Retic ulocy te count panel Retic ulocy te count % 0.4 1.6 1.60 FINAL Deepthi Dodge [facility], [address] [place] [address] [address] [facility] [phone] 0 Phone: () - 05/06 Retic ulocy te count panel Immat ure retic ulocy te fract ion, % % 0.0 16.5 9.70 FINAL Deepthi banerjee Oncology - [facility], [address] [place] [address] [address] [place] [id number] 0 Phone: () - 05/06 Retic ulocy te count panel Retic ulocy te cellu lar hemog lobin pg 28.0 37.0 33.0 FINAL Deepthi banerjee Oncology - [facility], [address] [place] [address] [address] [place] [id number] 0 Phone: () - 05/06 CBC w/ auto diff WBC K/uL 3.0 8.9 8.4 FINAL Deepthi abnerjee Oncology - [facility], [address] [place] [id number] 0 Phone: () - 05/06 CBC w/ auto diff HGB g/dL 11.3 15.2 13.6 FINAL Deepthi banerjee Oncology - [facility], [address] [place] [address] [address] [place] [phone] 0 Phone: () - 05/06 CBC w/ auto diff PLT K/uL 113.0 364.0 266 FINAL Deepthi banerjee Oncology - [facility], [address] [place] [id number] 0 Phone: () - 05/06 CBC w/ auto diff Dawna # (ANC) K/uL 1.6 6.6 3.9 FINAL Deepthi banerjee Oncology - [facility], [address] [place] [address] [address] [place] [id number] 0 Phone: () - 05/06 CBC w/ auto diff Dawna % % 43.0 74.0 46.7 FINAL Deepthi banerjee Oncology - [facility], [address] [place] [address] [address] [place] [id number] 0 Phone: () - 05/06 CBC w/ auto diff IG % % 0.0 0.5 0.5 FINAL Deepthi Clemens lavonne Oncology - [facility], [address] [place] [address] [address] [place] [id number] 0 Phone: () - 05/06 CBC w/ auto diff IG # K/uL 0.0 0.03 0.04 High FINAL Deepthi Eli a [facility] - [place], [address] [place] [address] [address] [place] [id number] 0 Phone: () - 05/06 CBC w/ auto diff LY % % 14.0 41.0 44.8 High FINAL Deepthi Eli a [facility] - [place], [address] [place] [address] [address] [place] [id number] 0 Phone: () - 05/06 CBC w/ auto diff MO % % 6.0 15.0 6.2 FINAL Deepthi Eli a [facility] - [place], [address] [place] [address] [address] [place] [id number] 0 Phone: () - 05/06 CBC w/ auto diff EO % % 0.0 7.0 1.4 FINAL Deepthi Eli a [facility] - [place], [address] [place] [phone] 0 Phone: () - 05/06 CBC w/ auto diff BA % % 0.0 2.0 0.4 FINAL Deepthi Eli a [facility] - [place], [address] [place] [address] [address] [place] [id number] 0 Phone: () - 05/06 CBC w/ auto diff LY # K/uL 0.4 3.6 3.8 High FINAL Deepthi Eli a [facility] - [place], [address] [place] [address] [address] [place] [id number] 0 Phone: () - 05/06 CBC w/ auto diff MO # K/uL 0.2 1.3 0.5 FINAL Deepthi banerjee [facility] - [place], [address] [place] [address] [address] [place] [id number] 0 Phone: () - 05/06 CBC w/ auto diff EO # K/uL 0.0 0.6 0.1 FINAL Deepthi banerjee [facility] - [place], [address] [place] [address] [address] [place] [id number] 0 Phone: () - 05/06 CBC w/ auto diff BA # K/uL 0.0 0.2 0.0 FINAL Deepthi banerjee [facility] - [place], [address] [place] [address] [address] [place] [id number] 0 Phone: () - 05/06 CBC w/ auto diff NRBC % #/100W BC 0.0 0.2 0.0 FINAL Deepthi banerjee [facility] - [place], [address] [place] [address] [address] [place] [id number] 0 Phone: () - 05/06 CBC w/ auto diff RBC M/uL 3.9 5.1 4.57 FINAL Deepthi banerjee Oncology - [facility], [address] [place] [address] [address] [place] [id number] 0 Phone: () - 05/06 CBC w/ auto diff HCT % 35.0 48.0 40.7 FINAL [facility] [place] [facility], [address] [place] [address] [address] [place] [id number] 0 Phone: () - 05/06 CBC w/ auto diff MCV fL 80.0 104.0 89.1 FINAL [facility] [place], [address] [place] [address] [address] [place] [id number] 0 Phone: () - 05/06 CBC w/ auto diff MCH pg 26.0 35.0 29.8 FINAL [facility] [place] [facility], [address] [place] [address] [address] [place] [id number] 0 Phone: () - 05/06 CBC w/ auto diff MCHC g/dL 30.0 35.0 33.4 FINAL Deeptih banerjee [facility] [place], [address] [place] [address] [address] [place] [id number] 0 Phone: () - 05/06 CBC w/ auto diff MPV fL 9.5 13.4 9.3 Low FINAL Deepthi banerjee [facility] [place], [address] [place] [address] [address] [place] [id number] 0 Phone: () - 05/06 CBC w/ auto diff RDW % 11.4 16.1 13.60 FINAL Deepthi banerjee [facility] [place] [facility], [address] [place] [address] 200 [facility] [phone] 0 Phone: () - Medications Date Name [...]
--- OUTSIDE RECORDS SUMMARY | 2025-09-08 13:10 | XMS_ITS ---
Author Name Interface, W0Olmvdfe lity Address [address] [place] [address] [address] [address] [facility] Oncology Address [address] [place] [id number] Allergies and Adverse Reactions Medication/Group Name Reaction [...] U/L 120.0 246.0 246 FINAL [facility] [place], [address] [facility] [phone] Phone: () - 06/19 Path perip heral blood slide revie w panel Patho logy/ Cytol ogy Morph ology SEE RESULTS BELOW CASE REPORTSpe cial Hematolog y Report Case: [id number] ing Provider: Asim Cornelius MD Collected :06/19/20 21 1340Order ing Location: [facility] Received: 1 1734Patho [...] 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 Staging bone marrow biopsy was negative forlympho ma ([id number]) . Her most recent periphera l blood morpholog y 2019 ([id number] ,05/01/2020 ) was negative for circulati ng [...] blood smear.ADD ITIONAL INFORMATI ONInterpr eted at [employer], [facility] - [address], [place], [place] [address]Rkik Performed by:[facility] - [place], [place] [address]Zhns e : FINAL Asim Cornelius 06/19 CBC w/ auto diff WBC K/uL 3.0 8.9 8.7 FINAL Asim Clemens a Oncology - [facility], [address] [facility] [address] [place] [id number] 0 Phone: () - 06/19 CBC w/ auto diff HGB g/dL 11.3 15.2 14.2 FINAL Asim Clemensot a Oncology - [facility], [address] [facility] [address] [place] [id number] 0 Phone: () - 06/19 CBC w/ auto diff PLT K/uL 113.0 364.0 282 FINAL Asim Clemensot a Oncology - [facility], [address] [facility] [address] [place] [id number] 0 Phone: () - 06/19 CBC w/ auto diff Dawna # (ANC) K/uL 1.6 6.6 4.9 FINAL Asim Eli a [facility] [place], [address] [place] [address] [address] [place] [id number] 0 Phone: () - 06/19 CBC w/ auto diff Dawna % % 43.0 74.0 56.8 FINAL Asim Eli a [facility] [place], [address] [place] [address] [address] [place] [id number] 0 Phone: () - 06/19 CBC w/ auto diff IG % % 0.0 0.5 0.5 FINAL Asim Eli a [facility] [place], [address] [place] [address] [address] [place] [id number] 0 Phone: () - 06/19 CBC w/ auto diff IG # K/uL 0.0 0.03 0.04 High FINAL Asim Eli a [facility] [place], [address] [place] [address] [address] [place] [id number] 0 Phone: () - 06/19 CBC w/ auto diff LY % % 14.0 41.0 33.4 FINAL Asim Eli a [facility] [place], [address] [place] [address] [address] [place] [id number] 0 Phone: () - 06/19 CBC w/ auto diff MO % % 6.0 15.0 7.0 FINAL Asim Eli a [facility] [place], [address] [place] [address] [address] [place] [id number] 0 Phone: () - 06/19 CBC w/ auto diff EO % % 0.0 7.0 1.8 FINAL Asim Eli a [facility] [place], [address] [place] [address] [address] [place] [id number] 0 Phone: () - 06/19 CBC w/ auto diff BA % % 0.0 2.0 0.5 FINAL Asim Eli a [facility] [place], [address] [place] [address] [address] [place] [id number] 0 Phone: () - 06/19 CBC w/ auto diff LY # K/uL 0.4 3.6 2.9 FINAL Asim Eli a [facility] [place], [address] [place] [id number] 0 Phone: () - 06/19 CBC w/ auto diff MO # K/uL 0.2 1.3 0.6 FINAL Asim banerjee [facility] [place], [address] [place] [id number] 0 Phone: () - 06/19 CBC w/ auto diff EO # K/uL 0.0 0.6 0.2 FINAL Asim banerjee [facility] [place], [address] [place] [id number] 0 Phone: () - 06/19 CBC w/ auto diff BA # K/uL 0.0 0.2 0.0 FINAL Asim banerjee [facility] [place], [address] [place] [id number] 0 Phone: () - 06/19 CBC w/ auto diff NRBC % #/100W BC 0.0 0.2 0.0 FINAL Asim banerjee [facility] [place], [address] [place] [id number] 0 Phone: () - 06/19 CBC w/ auto diff RBC M/uL 3.9 5.1 4.67 FINAL Asim banerjee [facility] [place], [address] [place] [id number] 0 Phone: () - 06/19 CBC w/ auto diff HCT % 35.0 48.0 41.7 FINAL Asim banerjee [facility] [place], [address] [place] [id number] 0 Phone: () - 06/19 CBC w/ auto diff MCV fL 80.0 104.0 89.3 FINAL Asim banerjee [facility] [place], [address] [place] [address] [address] [place] [id number] 0 Phone: () - 06/19 CBC w/ auto diff MCH pg 26.0 35.0 30.4 FINAL Asim banerjee [facility] [place], [address] [place] [id number] 0 Phone: () - 06/19 CBC w/ auto diff MCHC g/dL 30.0 35.0 34.1 FINAL Asim banerjee [facility] [place] [facility], [address] 200 [place] [id number] 0 Phone: () - 06/19 CBC w/ auto diff MPV fL 9.5 13.4 8.8 Low FINAL Asim banerjee [facility] [place] [facility], [address] [place] [id number] 0 Phone: () - 06/19 CBC w/ auto diff RDW % 11.4 16.1 13.10 FINAL Asim banerjee [facility] [place] [facility], [address] [place] [address] 200 [place] [id number] 0 Phone: () - 06/19 Retic ulocy te count panel Retic ulocy te, absol bc M/uL 0.02 0.08 0.08 FINAL Asim banerjee [facility] [place] [facility], [address] [place] [id number] 0 Phone: () - 06/19 Retic ulocy te count panel Retic ulocy te count % 0.4 1.6 1.75 High FINAL Asim banerjee [facility] [place] [facility], [address] [place] [address] 200 [place] [id number] 0 Phone: () - 06/19 Retic ulocy te count panel Immat ure retic ulocy te fract ion, % % 0.0 16.5 10.80 FINAL Asim banerjee [facility] [place] [facility], [address] [place] [id number] 0 Phone: () - 06/19 Retic ulocy te count panel Retic ulocy te cellu lar hemog lobin pg 28.0 37.0 34.6 FINAL Asim banerjee [facility] [place] [facility], [address] [place] [address] 200 [place] [id number] 0 Phone: () - 06/19 CMP Album in g/dL 3.2 5.2 4.6 FINAL Asim banerjee Oncology [facility], [address] [facility] [id number] 0 Phone: () - 06/19 CMP Alkal ine phosp hatas e U/L 46.0 116.0 91 FINAL Asimmtat Cornelius [facility], [address] [facility] [address] [facility] [id number] 0 Phone: () - 06/19 CMP ALT/S GPT U/L 7.0 40.0 27 FINAL Asim Cornelius [facility], [address] [facility] [id number] 0 Phone: () - 06/19 CMP AST/S GOT U/L 13.0 40.0 34 FINAL [facility], [address] [facility] [id number] 0 Phone: () - 06/19 CMP BUN mg/dL 9.0 23.0 11 FINAL [facility], [address] [facility] [address] [place] [address] [id number] 0 Phone: () - 06/19 CMP Calci um mg/dL 8.7 10.4 9.4 FINAL [facility], [address] [facility] [address] [facility] [id number] 0 Phone: () - 06/19 CMP Chlor ray mmol/L 96.0 114.0 107 FINAL [facility], [address] [facility] [address] [place] [address] [phone] 0 Phone: () - 06/19 CMP CO2 [...] the 96 hour stability window. FINAL [facility] [address] [facility] [id number] [phone] Phone: () - 06/19 CMP Creat inine mg/dL 0.5 1.2 0.68 FINAL [facility] [address] [facility] [address] [facility] [id number] 0 Phone: () - 06/19 CMP GFR estim ate ml/min /1.73m ^2 103.9 GFR is calculate d using the CKD-EPI equation. FINAL Asim Cornelius [facility], [address] [facility] [address] [facility] [id number] 0 Phone: () - 06/19 CMP Gluco se mg/dL 73.0 126.0 95 FINAL Asimmatt Cornelius [facility], [address] [facility] [address] [facility] [id number] 0 Phone: () - 06/19 CMP Potas sium mmol/L 3.5 5.1 4.1 [facility], [address] [facility] [address] [facility] [id number] 0 Phone: () - 06/19 CMP Sodiu m mmol/L 136.0 145.0 140 FINAL Asim [facility], [address] [facility] [address] [facility] [id number] 0 Phone: () - 06/19 CMP Bilir ubin, total mg/dL 0.3 1.2 0.2 Low [facility], [address] [facility] [address] [facility] [id number] 0 Phone: () - 06/19 CMP Total prote in g/dL 5.7 8.2 6.9 [facility] [address] [facility] 100 [facility] [id number] 0 Phone: () - 01/19 [facility] [place] See attacher d 05/01 Mis other lab See attacher d 05/06 CBC w/ auto diff WBC K/uL 3.0 8.9 8.4 FINAL Deepthi Clemens [place] [facility], [address] [facility] [id number] 0 Phone: () - 05/06 CBC w/ auto diff HGB g/dL 11.3 15.2 13.6 FINAL Deepthi Clemens [facility] [facility] [place], [address] [place] [id number] 0 Phone: () - 05/06 CBC w/ auto diff PLT K/uL 113.0 364.0 266 FINAL Depethi banerjee [facility] - [place], [address] [place] [id number] 0 Phone: () - 05/06 CBC w/ auto diff Dawna # (ANC) K/uL 1.6 6.6 3.9 FINAL Deepthi banerjee [facility] [place], [address] [place] [id number] 0 Phone: () - 05/06 CBC w/ auto diff Dawna % % 43.0 74.0 46.7 FINAL Deepthi banerjee [facility] [place], [address] 200 [place] [id number] 0 Phone: () - 05/06 CBC w/ auto diff IG % % 0.0 0.5 0.5 FINAL Deepthi banerjee [facility] [place], [address] 200 [place] [id number] 0 Phone: () - 05/06 CBC w/ auto diff IG # K/uL 0.0 0.03 0.04 High FINAL Deepthi banerjee [facility] [place], [address] [place] [id number] 0 Phone: () - 05/06 CBC w/ auto diff LY % % 14.0 41.0 44.8 High FINAL Deepthi banerjee [facility] [place], [address] [place] [id number] 0 Phone: () - 05/06 CBC w/ auto diff MO % % 6.0 15.0 6.2 FINAL Deepthi banerjee [facility] [place], [address] [place] [id number] 0 Phone: () - 05/06 CBC w/ auto diff EO % % 0.0 7.0 1.4 FINAL Deepthi banerjee [facility] [place], [address] 200 [place] [id number] 0 Phone: () - 05/06 CBC w/ auto diff BA % % 0.0 2.0 0.4 FINAL Deepthi banerjee [facility] [place], [address] [place] [address] 200 [place] [id number] 0 Phone: () - 05/06 CBC w/ auto diff LY # K/uL 0.4 3.6 3.8 High FINAL Deepthi banerjee [facility] [place], [address] [place] [address] 200 [place] [id number] 0 Phone: () - 05/06 CBC w/ auto diff MO # K/uL 0.2 1.3 0.5 FINAL Deepthi banerjee [facility] [place] [facility], [address] [place] [address] 200 [place] [id number] 0 Phone: () - 05/06 CBC w/ auto diff EO # K/uL 0.0 0.6 0.1 FINAL Deepthi banerjee [facility] [place] [facility], [address] [place] [address] 200 [place] [id number] 0 Phone: () - 05/06 CBC w/ auto diff BA # K/uL 0.0 0.2 0.0 FINAL Deepthi banerjee [facility] [place] [facility], [address] [place] [address] 200 [place] [id number] 0 Phone: () - 05/06 CBC w/ auto diff NRBC % #/100W BC 0.0 0.2 0.0 FINAL Deepthi banerjee [facility] [place] [facility], [address] [place] [address] 200 [place] [id number] 0 Phone: () - 05/06 CBC w/ auto diff RBC M/uL 3.9 5.1 4.57 FINAL Deepthi banerjee [facility] [place] [facility], [address] [place] [address] 200 [place] [id number] 0 Phone: () - 05/06 CBC w/ auto diff HCT % 35.0 48.0 40.7 FINAL Deepthi banerjee [facility] [place], [address] [place] [address] 200 [place] [id number] 0 Phone: () - 05/06 CBC w/ auto diff MCV fL 80.0 104.0 89.1 FINAL Deepthi banerjee [facility] [place] [facility], [address] [place] [address] 200 [place] [id number] 0 Phone: () - 05/06 CBC w/ auto diff MCH pg 26.0 35.0 29.8 FINAL Deepthi banerjee [facility] [place] [facility], [address] [place] [address] 200 [place] [id number] 0 Phone: () - 05/06 CBC w/ auto diff MCHC g/dL 30.0 35.0 33.4 FINAL Deepthi banerjee [facility] [place] [facility], [address] [place] [address] 200 [place] [id number] 0 Phone: () - 05/06 CBC w/ auto diff MPV fL 9.5 13.4 9.3 Low FINAL Deepthi Clemens [place] [facility] [place] [facility], [address] [place] [address] 200 [place] [id number] 0 Phone: () - 05/06 CBC w/ auto diff RDW % 11.4 16.1 13.60 FINAL Deepthi Clemens [place] [facility] [place] [facility], [address] [place] [address] 200 [place] [id number] 0 Phone: () - 05/06 Retic ulocy te count panel Retic ulocy te, absol bc M/uL 0.02 0.08 0.07 FINAL Deepthi Clemens [place] [facility] [place] [facility], [address] [place] [address] 200 [place] [phone] 0 Phone: () - 05/06 Retic ulocy te count panel Retic ulocy te count % 0.4 1.6 1.60 FINAL Deepthi Clemens [place] [facility] [place] [facility], [address] [place] [address] 200 [place] [id number] 0 Phone: () - 05/06 Retic ulocy te count panel Immat ure retic ulocy te fract ion, % % 0.0 16.5 9.70 FINAL Deepthi Clemens [place] [facility] [place] [facility], [address] [place] [address] 200 [place] [id number] 0 Phone: () - 05/06 Retic ulocy te count panel Retic ulocy te cellu lar hemog lobin pg 28.0 37.0 33.0 FINAL Deepthi banerjee [facility] lis, [address] [place] [address] 200 [facility] [id number] 0 Phone: () - 05/06 CMP Album in g/dL 3.2 5.2 4.7 FINAL [place] [address] [id number] 0 Phone: () - 05/06 CMP Alkal ine phosp hatas e U/L 46.0 116.0 73 FINAL [place] [address] [id number] 0 Phone: () - 05/06 CMP ALT/S GPT U/L 7.0 40.0 19 FINAL [place] [address] [id number] 0 Phone: () - 05/06 CMP AST/S GOT U/L 13.0 40.0 21 FINAL [place] [address] [id number] 0 Phone: () - 05/06 CMP BUN mg/dL 9.0 23.0 16.0 FINAL [place] [address] [id number] 0 Phone: () - 05/06 CMP Calci um mg/dL 8.7 10.4 9.8 FINAL Deepthi Dodge [place] [address] [id number] 0 Phone: () - 05/06 CMP Chlor ray mmol/L 96.0 114.0 107 FINAL [place] [address] [id number] 0 Phone: () - 05/06 CMP CO2 [...] 96 hour stability window. FINAL Deepthi banerjee [place] [address] [phone] 0 Phone: () - 05/06 CMP Creat inine mg/dL 0.5 1.2 0.80 FINAL Deepthi banerjee [place] [address] [phone] 0 Phone: () - 05/06 CMP GFR estim ate ml/min /1.73m ^2 90.1 GFR is calculate d using the CKD-EPI equation. FINAL Deepthi Clemens [place] [address] [phone] 0 Phone: () - 05/06 CMP Gluco se mg/dL 73.0 126.0 128 High FINAL Deepthi Clemens [place] [address] [phone] 0 Phone: () - 05/06 CMP Potas sium mmol/L 3.5 5.1 3.9 FINAL Deepthi Clemens [place] [address] [id number] 0 Phone: () - 05/06 CMP Sodiu m mmol/L 136.0 145.0 142 FINAL [place] [address] [id number] 0 Phone: () - 05/06 CMP Bilir ubin, total mg/dL 0.3 1.2 0.2 Low FINAL [place] [address] [phone] 0 Phone: () - 05/06 CMP Total prote in g/dL 5.7 8.2 7.1 FINAL [place] [address] [address] [facility] [address] [facility] [id number] [phone] Phone: () - 05/06 LDH panel LDH U/L 120.0 246.0 191 FINAL Deepthi Dodge Sarathot a [facility] - [place], [address] [facility] [address] [facility] [phone] 0 Phone: () - Medications Date Name [...]
--- OUTSIDE RECORDS SUMMARY | 2025-09-08 13:10 | XMS_ITS ---
Author Name Interface, R3Odoitvf lity Address [address] [place] [address] [address], [place] [address] [facility] Oncology Address [address] [facility] [address], [place] [address] Allergies and Adverse Reactions Medication/Group Name Reaction [...] - 16 ARM/HFU - 16 ARM/HFU 12/14/2019 LAB_ORDER CBC w/ auto diff 12/14/2019 LAB_ORDER PET/CT scan, sku ll base/mid thigh 12/28/2019 LAB_ORDER CBC w/ auto diff 12/28/2019 LAB_ORDER CMP 12/28/2019 LAB_ORDER iSTAT creatinine panel 01/11/2020 LAB_ORDER CBC w/ auto diff 02/08/2020 LAB_ORDER CBC w/ auto diff 03/07/2020 LAB_ORDER CBC w/ auto diff 05/01/2020 LAB_ORDER CMP 05/01/2020 LAB_ORDER CBC w/ [...] Abnor mal FINAL Mady banerjee On[facility] - [facility], [address] [place] [address] [address] [place] [id number] 0 Phone: () - 12/14 CBC w/ auto diff WBC K/uL 3.0 8.9 3.9 FINAL Mady banerjee [facility] - [place], [address] [place] [address] [address] [place] [id number] 0 Phone: () - 12/14 CBC w/ auto diff HGB g/dL 11.3 15.2 9.3 Low FINAL Mady banerjee [facility] - [place], [address] [place] [address] [address] [place] [id number] 0 Phone: () - 12/14 CBC w/ auto diff PLT K/uL 113.0 364.0 372 High FINAL Mady banerjee [facility] - [place], [address] [place] [address] [address] [place] [id number] 0 Phone: () - 12/14 CBC w/ auto diff Dawna # (ANC) K/uL 1.6 6.6 2.1 FINAL Mady banerjee [facility] - [place], [address] [place] [address] [address] [place] [id number] 0 Phone: () - 12/14 CBC w/ auto diff Dawna % % 43.0 74.0 54.9 FINAL Mady banerjee [facility] - [place], [address] [place] [address] [address] [place] [id number] 0 Phone: () - 12/14 CBC w/ auto diff IG % % 0.0 0.5 0.5 FINAL Mady banerjee [facility] - [place], [address] [place] [address] [address] [place] [id number] 0 Phone: () - 12/14 CBC w/ auto diff IG # K/uL 0.0 0.03 0.02 FINAL Mady banerjee [facility] - [place], [address] [place] [address] [address] [place] [id number] 0 Phone: () - 12/14 CBC w/ auto diff LY % % 14.0 41.0 26.2 FINAL Mady banerjee [facility] - [place], [address] [place] [address] [address] [place] [id number] 0 Phone: () - 12/14 CBC w/ auto diff MO % % 6.0 15.0 16.6 High FINAL Mady banerjee [facility] - [place], [address] [place] [address] [address] [place] [id number] 0 Phone: () - 12/14 CBC w/ auto diff EO % % 0.0 7.0 1.3 FINAL Mady banerjee [facility] - [place], [address] [place] [id number] 0 Phone: () - 12/14 CBC w/ auto diff BA % % 0.0 2.0 0.5 FINAL Mady banerjee [facility] - [place], [address] [place] [address] [address] [place] [id number] 0 Phone: () - 12/14 CBC w/ auto diff LY # K/uL 0.4 3.6 1.0 FINAL Mady banerjee [facility] - [place], [address] [place] [id number] 0 Phone: () - 12/14 CBC w/ auto diff MO # K/uL 0.2 1.3 0.6 FINAL Mady banerjee [facility] - [place], [address] [place] [address] 200 [facility] [place] [id number] 0 Phone: () - 12/14 CBC w/ auto diff EO # K/uL 0.0 0.6 0.1 FINAL Mady banerjee [facility] - [place], [address] [place] [id number] 0 Phone: () - 12/14 CBC w/ auto diff BA # K/uL 0.0 0.2 0.0 FINAL Mady banerjee [facility] - [place], [address] [place] [address] [address] [place] [id number] 0 Phone: () - 12/14 CBC w/ auto diff NRBC % #/100W BC 0.0 0.2 0.0 FINAL Mady banerjee [facility] - [place], [address] [place] [address] [address] [place] [id number] 0 Phone: () - 12/14 CBC w/ auto diff HCT % 35.0 48.0 29.6 Low FINAL Mady banerjee On[facility] - [place], [address] [place] [address] [address] [place] [id number] 0 Phone: () - 12/14 CBC w/ auto diff MCV fL 80.0 104.0 113.8 High FINAL Mady banerjee On[facility] - [place], [address] [place] [address] [address] [place] [id number] 0 Phone: () - 12/14 CBC w/ auto diff MCH pg 26.0 35.0 35.8 High FINAL Mady banerjee [facility] - [place], [address] [place] [address] [address] [place] [id number] 0 Phone: () - 12/14 CBC w/ auto diff MCHC g/dL 30.0 35.0 31.4 FINAL Mady banerjee [facility] - [place], [address] [place] [address] [address] [place] [id number] 0 Phone: () - 12/14 CBC w/ auto diff MPV fL 9.5 13.4 9.5 FINAL Mady banerjee [facility] - [place], [address] [place] [address] [address] [place] [id number] 0 Phone: () - 12/14 CBC w/ auto diff RDW % 11.4 16.1 19.70 High FINAL Mady banerjee [facility] - [place], [address] [place] [address] [address] [place] [id number] 0 Phone: () - 12/14 CBC w/ auto diff Auto CBC comme nts Slide review to follow FINAL Mady banerjee [facility] - [place], [address] [place] [address] [address] [place] [id number] 0 Phone: () - 12/14 CBC w/ auto diff RBC M/uL 3.9 5.1 2.60 Low FINAL Mady banerjee [facility] - [place] [facility], [address] [place] [address] [address] [place] [id number] 0 Phone: () - 12/28 CMP Album in g/dL 3.2 5.2 3.9 FINAL Id[facility] a [facility] [address] [place] [id number] 0 Phone: () - 12/28 CMP Alkal ine phosp hatas e U/L 46.0 116.0 59 FINAL [facility] [address] [place] [id number] 0 Phone: () - 12/28 CMP ALT/S GPT U/L 7.0 40.0 13 FINAL Idalia banerjee [address] [id number] 0 Phone: () - 12/28 CMP AST/S GOT U/L 13.0 40.0 19 FINAL Idalia banerjee [address] [id number] 0 Phone: () - 12/28 CMP BUN mg/dL 9.0 23.0 11 FINAL Idalia banerjee [address] [id number] 0 Phone: () - 12/28 CMP Calci um mg/dL 8.7 10.4 9.7 FINAL Idalia banerjee [address] [id number] 0 Phone: () - 12/28 CMP Chlor ray mmol/L 96.0 114.0 109 FINAL Idalia banerjee [address] [id number] 0 Phone: () - 12/28 CMP CO2 mmol/L 20.0 31.0 29 FINAL Idalia banerjee [address] [id number] 0 Phone: () - 12/28 CMP Creat inine mg/dL 0.5 1.2 0.53 FRANCISCO banerjee [address] [id number] 0 Phone: () - 12/28 CMP GFR estim ate ml/min /1.73m ^2 114.0 GFR is calculate d using the CKD-EPI equation. FINAL Idalia Clemens[address] [id number] 0 Phone: () - 12/28 CMP Gluco se mg/dL 73.0 126.0 117 FINAL Idalia [address]ens[address] [id number] 0 Phone: () - 12/28 CMP Potas sium mmol/L 3.5 5.1 3.4 Low FINAL Idalia banerjee [address] [id number] 0 Phone: () - 12/28 CMP Sodiu m mmol/L 136.0 145.0 145 FINAL Idalia banerjee [address] [id number] 0 Phone: () - 12/28 CMP Bilir ubin, total mg/dL 0.3 1.2 0.2 Low FINAL Idalia banerjee [address] 100 [facility] [id number] 0 Phone: () - 12/28 CMP Total prote in g/dL 5.7 8.2 5.6 Low FINAL Idalia banerjee [address] [id number] 0 Phone: () - 12/28 CBC w/ auto diff WBC K/uL 3.0 8.9 5.7 FINAL Idalia banerjee Oncology - [facility], [address] [place] [address] 200 [place] [id number] 0 Phone: () - 12/28 CBC w/ auto diff HGB g/dL 11.3 15.2 10.4 Low FINAL Idalia banerjee On[facility] - [facility], [address] [place] [address] 200 [place] [id number] 0 Phone: () - 12/28 CBC w/ auto diff PLT K/uL 113.0 364.0 312 FINAL [facility], [address] [place] [address] 200 [place] [id number] 0 Phone: () - 12/28 CBC w/ auto diff Dawna # (ANC) K/uL 1.6 6.6 4.1 FINAL [facility], [address] [place] [address] 200 [place] [id number] 0 Phone: () - 12/28 CBC w/ auto diff Dawna % % 43.0 74.0 72.5 FINAL Idalia banerjee On[facility] - [place], [address] [place] [id number] 0 Phone: () - 12/28 CBC w/ auto diff IG % % 0.0 0.5 0.4 FINAL Idalia banerjee On[facility] - [place], [address] 200 [place] [id number] 0 Phone: () - 12/28 CBC w/ auto diff IG # K/uL 0.0 0.03 0.02 FINAL Idalia banerjee [facility] - [place], [address] 200 [place] [id number] 0 Phone: () - 12/28 CBC w/ auto diff LY % % 14.0 41.0 14.4 FINAL Idalia banerjee [facility] - [place], [address] 200 [place] [id number] 0 Phone: () - 12/28 CBC w/ auto diff MO % % 6.0 15.0 9.6 FINAL Idalia banerjee [facility] - [place], [address] 200 [place] [id number] 0 Phone: () - 12/28 CBC w/ auto diff EO % % 0.0 7.0 2.6 FINAL Idalia banerjee [facility] - [place], [address] [place] [address] 200 [place] [id number] 0 Phone: () - 12/28 CBC w/ auto diff BA % % 0.0 2.0 0.5 FINAL Idalia banerjee [facility] - [place], [address] 200 [place] [id number] 0 Phone: () - 12/28 CBC w/ auto diff LY # K/uL 0.4 3.6 0.8 FINAL Idalia banerjee [facility] - [place], [address] [place] [address] 200 [place] [id number] 0 Phone: () - 12/28 CBC w/ auto diff MO # K/uL 0.2 1.3 0.6 FINAL Idalia banerjee [facility] - [place], [address] 200 [place] [id number] 0 Phone: () - 12/28 CBC w/ auto diff EO # K/uL 0.0 0.6 0.2 FINAL Idalia banerjee [facility] - [place] [facility], [address] 200 [place] [id number] 0 Phone: () - 12/28 CBC w/ auto diff BA # K/uL 0.0 0.2 0.0 FINAL Idalia banerjee [facility] - [place] [facility], [address] [place] [address] 200 [place] [id number] 0 Phone: () - 12/28 CBC w/ auto diff NRBC % #/100W BC 0.0 0.2 0.0 FINAL Idalia banerjee [facility] - [place] [facility], [address] [place] [address] 200 [place] [id number] 0 Phone: () - 12/28 CBC w/ auto diff RBC M/uL 3.9 5.1 2.97 Low FINAL Idalia banerjee [facility] - [place] [facility], [address] [place] [address] 200 [place] [id number] 0 Phone: () - 12/28 CBC w/ auto diff HCT % 35.0 48.0 32.3 Low FINAL Idalia banerjee [facility] - [place] [facility], [address] [place] [address] 200 [place] [id number] 0 Phone: () - 12/28 CBC w/ auto diff MCV fL 80.0 104.0 108.8 High FINAL Idalia banerjee [facility] - [place] [facility], [address] [place] [address] 200 [place] [id number] 0 Phone: () - 12/28 CBC w/ auto diff MCH pg 26.0 35.0 35.0 FINAL Idalia banerjee [facility] - [place] [facility], [address] [place] [address] 200 [place] [id number] 0 Phone: () - 12/28 CBC w/ auto diff MCHC g/dL 30.0 35.0 32.2 FINAL Idalia banerjee [facility] - [place] [facility], [address] 200 [place] [id number] 0 Phone: () - 12/28 CBC w/ auto diff MPV fL 9.5 13.4 9.9 FINAL Idalia banerjee On[facility] - [place], [address] [place] [address] 200 [place] [id number] 0 Phone: () - 12/28 CBC w/ auto diff RDW % 11.4 16.1 15.20 FINAL Idalia banerjee [facility] - [place], [address] [place] [address] 200 [place] [id number] 0 Phone: () - 12/28 iSTAT creat inine panel Creat inine , iSTAT mg/dl 0.6 1.3 0.5 Low FINAL Idalia banerjee On[facility] - [place], [address] [place] [address] 200 [place] [id number] 0 Phone: () - 12/28 iSTAT creat inine panel GFR estim ate ml/min /1.73m ^2 116.2 GFR is calculate d using the CKD-EPI equation. FINAL Idalia banerjee [facility] - [place], [address] [place] [address] 200 [facility] [place] [id number] 0 Phone: () - 05/01 CBC w/ auto diff PLT K/uL 113.0 364.0 257 FINAL Asim banerjee On[facility] - [place], [address] 200 [place] [id number] 0 Phone: () - 05/01 CBC w/ auto diff Dawna # (ANC) K/uL 1.6 6.6 2.2 FINAL Asim banerjee On[facility] - [place], [address] [place] [address] 200 [place] [id number] 0 Phone: () - 05/01 CBC w/ auto diff Dawna % % 43.0 74.0 46.0 FINAL Asim banerjee On[facility] - [place], [address] [place] [address] 200 [place] [id number] 0 Phone: () - 05/01 CBC w/ auto diff IG % % 0.0 0.5 0.4 FINAL Asim Eli a [facility] - [place], [address] [place] [address] 200 [facility] [place] [id number] 0 Phone: () - 05/01 CBC w/ auto diff IG # K/uL 0.0 0.03 0.02 FINAL Asim Eli a [facility] - [place], [address] [place] [address] [address] [place] [id number] 0 Phone: () - 05/01 CBC w/ auto diff LY % % 14.0 41.0 38.7 FINAL Asim Eli a [facility] - [place], [address] [place] [address] [address] [place] [id number] 0 Phone: () - 05/01 CBC w/ auto diff MO % % 6.0 15.0 10.0 FINAL Asim Eli a [facility] - [place], [address] [place] [address] [address] [place] [id number] 0 Phone: () - 05/01 CBC w/ auto diff EO % % 0.0 7.0 4.3 FINAL Asim Eli a [facility] - [place], [address] [place] [address] [address] [place] [id number] 0 Phone: () - 05/01 CBC w/ auto diff BA % % 0.0 2.0 0.6 FINAL Asim Eli a [facility] - [place], [address] [place] [address] [address] [place] [id number] 0 Phone: () - 05/01 CBC w/ auto diff LY # K/uL 0.4 3.6 1.9 FINAL Asim Eli a [facility] - [place], [address] [place] [address] [address] [place] [id number] 0 Phone: () - 05/01 CBC w/ auto diff MO # K/uL 0.2 1.3 0.5 FINAL Asim Eli a [facility] - [place], [address] [place] [address] [address] [place] [id number] 0 Phone: () - 05/01 CBC w/ auto diff EO # K/uL 0.0 0.6 0.2 FINAL Asim Eli a [facility] - [place], [address] [place] [address] [address] [place] [id number] 0 Phone: () - 05/01 CBC w/ auto diff BA # K/uL 0.0 0.2 0.0 FINAL Asim Eli a [facility] - [place], [address] 200 [place] [id number] 0 Phone: () - 05/01 CBC w/ auto diff NRBC % #/100W BC 0.0 0.2 0.0 FINAL Asim banerjee On[facility] - [place], [address] 200 [place] [id number] 0 Phone: () - 05/01 CBC w/ auto diff RBC M/uL 3.9 5.1 4.01 FINAL Asim banerjee [facility] - [place] [facility], [address] 200 [place] [id number] 0 Phone: () - 05/01 CBC w/ auto diff HCT % 35.0 48.0 36.8 FINAL Asim banerjee [facility] - [place] [facility], [address] 200 [place] [id number] 0 Phone: () - 05/01 CBC w/ auto diff MCV fL 80.0 104.0 91.8 FINAL Asim banerjee [facility] - [place] [facility], [address] 200 [place] [id number] 0 Phone: () - 05/01 CBC w/ auto diff MCH pg 26.0 35.0 31.2 FINAL Asim banerjee On[facility] - [place] [facility], [address] 200 [place] [id number] 0 Phone: () - 05/01 CBC w/ auto diff MCHC g/dL 30.0 35.0 34.0 FINAL Asim banerjee On[facility] - [place], [address] 200 [place] [id number] 0 Phone: () - 05/01 CBC w/ auto diff MPV fL 9.5 13.4 9.1 Low FINAL Asim banerjee [facility] - [place] [facility], [address] 200 [place] [id number] 0 Phone: () - 05/01 CBC w/ auto diff RDW % 11.4 16.1 13.90 FINAL Asim banerjee [facility] - [place] [facility], [address] [place] [id number] 0 Phone: () - 05/01 CBC w/ auto diff Auto CBC comme nts Slide review to follow FINAL Asim banerjee [facility] - [place] [facility], [address] [place] [address] [address] [place] [id number] 0 Phone: () - 05/01 CBC w/ auto diff WBC K/uL 3.0 8.9 4.9 FINAL Asim banerjee [facility] - [place] [facility], [address] [place] [address] [address] [place] [id number] 0 Phone: () - 05/01 CBC w/ auto diff HGB g/dL 11.3 15.2 12.5 FINAL Asim banerjee [facility] - [place] [facility], [address] [place] [address] [address] [place] [id number] 0 Phone: () - 05/01 Smear revie w panel CBC Smear revie w comme nts Large and-or giant platele ts present Atypica l (Reacti ve and/or Variant ) Lymphs present Abnor mal FINAL Asim banerjee [facility] - [place] [facility], [address] [place] [address] [address] [place] [id number] 0 Phone: () - 05/01 Retic ulocy te count panel Retic ulocy te, absol [place] M/uL 0.02 0.08 0.08 FINAL Asim banerjee [facility] - [place] [facility], [address] [place] [address] [address] [place] [id number] 0 Phone: () - 05/01 Retic ulocy te count panel Retic ulocy te count % 0.4 1.6 2.07 High FINAL Asim banerjee [facility] - [place] [facility], [address] [place] [address] [address] [place] [id number] 0 Phone: () - 05/01 Retic ulocy te count panel Immat ure retic ulocy te fract ion, % % 0.0 16.5 10.10 FINAL Asim banerjee [facility] - [place] [facility], [address] [place] [address] [address] [place] [id number] 0 Phone: () - 05/01 Retic ulocy te count panel Retic ulocy te cellu lar hemog lobin pg 28.0 37.0 36.5 FINAL Asim banerjee [facility] - [place] [facility], [address] 200 [facility] [place] [phone] 0 Phone: () - 05/01 Path perip heral blood slide revie w panel Patho logy/ Cytol ogy Morph ology SEE RESULTS BELOW CASE REPORTSpe cial Hematolog y Report Case: [id number] ing Provider: Asim Cornelius MD Collected :05/01/20 20 1447Order ing Location: [facility] Received: 0 1212Patho [...] iagnosed by left neck lymph node biopsy ([id number] , 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 Staging bonemarro w biopsy [...] specimens .ADDITION AL INFORMATI ONInterpr eted at [facility] - [address], [place], [place] [address]Ptyt [facility]formed by:[facility] - [facility] [place] [address]Tlid e : FINAL Asim Cornelius 05/01 CMP Album in g/dL 3.2 5.2 4.4 FINAL Asim Clemens a [address] [place] [id number] 0 Phone: () - 05/01 CMP Alkal ine phosp hatas e U/L 46.0 116.0 76 FINAL Asim Clemensot a [address] [place] [id number] 0 Phone: () - 05/01 CMP ALT/S GPT U/L 7.0 40.0 12 FINAL Asimmatt Clemensot a [address] [place] [id number] 0 Phone: () - 05/01 CMP AST/S GOT U/L 13.0 40.0 16 FINAL Asim Clemensot a [address] [place] [id number] 0 Phone: () - 05/01 CMP BUN mg/dL 9.0 23.0 19 FINAL Asim Clemensot a [address] [place] [id number] 0 Phone: () - 05/01 CMP Calci um mg/dL 8.7 [address] [facility] Cornelius [address] [id number] 0 Phone: () - 05/01 CMP Chlor ray mmol/L 96.0 114.0 [address] [id number] 0 Phone: () - 05/01 CMP CO2 mmol/L 20.0 31.0 [address] [id number] 0 Phone: () - 05/01 CMP Creat inine mg/dL 0.5 [address] [id number] 0 Phone: () - 05/01 CMP GFR estim ate ml/min /1.73m ^2 97.0 GFR is calculate d using the CKD-EPI equation. FINAL [address] [phone] 0 Phone: () - 05/01 CMP Gluco se mg/dL 73.0 126.0 [address] [id number] 0 Phone: () - 05/01 CMP Potas sium mmol/L 3.5 [address] [id number] 0 Phone: () - 05/01 CMP Sodiu m mmol/L 136.0 145.[address] [id number] 0 Phone: () - 05/01 CMP Bilir ubin, total mg/dL 0.3 1.2 0.[address] [id number] 0 Phone: () - 05/01 CMP Total prote in g/dL 5.7 8.2 6.1 FINAL Asim banerjee On[facility] - [place], [address] [facility] [address] [place] [id number] 0 Phone: () - 06/19 Retic ulocy te count panel Retic ulocy te, absol [place] M/uL 0.02 0.08 0.08 FINAL Asim banerjee [facility] - [place] [facility], [address] [place] [id number] 0 Phone: () - 06/19 Retic ulocy te count panel Retic ulocy te count % 0.4 1.6 1.75 High FINAL Asim banerjee [facility] - [place] [facility], [address] [place] [id number] 0 Phone: () - 06/19 Retic ulocy te count panel Immat ure retic ulocy te fract ion, % % 0.0 16.5 10.80 FINAL Asim banerjee [facility] - [place] [facility], [address] [place] [id number] 0 Phone: () - 06/19 Retic ulocy te count panel Retic ulocy te cellu lar hemog lobin pg 28.0 37.0 34.6 FINAL Asim banerjee [facility] - [place] [facility], [address] 200 [place] [id number] 0 Phone: () - 06/19 CBC w/ auto diff WBC K/uL 3.0 8.9 8.7 FINAL Asim banerjee [facility] - [place] [facility], [address] [place] [id number] 0 Phone: () - 06/19 CBC w/ auto diff HGB g/dL 11.3 15.2 14.2 FINAL Asim banerjee [facility] - [place] [facility], [address] [place] [id number] 0 Phone: () - 06/19 CBC w/ auto diff PLT K/uL 113.0 364.0 282 FINAL Asim banerjee [facility] - [place] [facility], [address] [place] [id number] 0 Phone: () - 06/19 CBC w/ auto diff Dawna # (ANC) K/uL 1.6 6.6 4.9 FINAL Asim banerjee [facility] - [place], [address] [place] [id number] 0 Phone: () - 06/19 CBC w/ auto diff Dawna % % 43.0 74.0 56.8 FINAL Asim banerjee [facility] - [place], [address] [place] [id number] 0 Phone: () - 06/19 CBC w/ auto diff IG % % 0.0 0.5 0.5 FINAL Asim Eli a [facility] - [place], [address] 200 [place] [id number] 0 Phone: () - 06/19 CBC w/ auto diff IG # K/uL 0.0 0.03 0.04 High FINAL Asim Eli a [facility] - [place], [address] 200 [place] [id number] 0 Phone: () - 06/19 CBC w/ auto diff LY % % 14.0 41.0 33.4 FINAL Asim banerjee [facility] - [place], [address] [place] [id number] 0 Phone: () - 06/19 CBC w/ auto diff MO % % 6.0 15.0 7.0 FINAL Asim Eli a [facility] - [place], [address] [place] [address] [address] [place] [id number] 0 Phone: () - 06/19 CBC w/ auto diff EO % % 0.0 7.0 1.8 FINAL Asim Eli a [facility] - [place], [address] [place] [id number] 0 Phone: () - 06/19 CBC w/ auto diff BA % % 0.0 2.0 0.5 FINAL Asim Eli a [facility] - [place], [address] [place] [id number] 0 Phone: () - 06/19 CBC w/ auto diff LY # K/uL 0.4 3.6 2.9 FINAL Asim banerjee [facility] - [place], [address] [place] [address] [address] [place] [id number] 0 Phone: () - 06/19 CBC w/ auto diff MO # K/uL 0.2 1.3 0.6 FINAL Asim banerjee [facility] - [place], [address] [place] [address] [address] [place] [id number] 0 Phone: () - 06/19 CBC w/ auto diff EO # K/uL 0.0 0.6 0.2 FINAL Asim Eli a [facility] - [place], [address] [place] [address] [address] [place] [id number] 0 Phone: () - 06/19 CBC w/ auto diff BA # K/uL 0.0 0.2 0.0 FINAL Asim Eli a [facility] - [place], [address] [place] [address] [address] [place] [id number] 0 Phone: () - 06/19 CBC w/ auto diff NRBC % #/100W BC 0.0 0.2 0.0 FINAL Asim banerjee [facility] - [place], [address] [place] [address] [address] [place] [id number] 0 Phone: () - 06/19 CBC w/ auto diff RBC M/uL 3.9 5.1 4.67 FINAL Asim Eli a [facility] - [place], [address] [place] [address] [address] [place] [id number] Phone: () - 06/19 CBC w/ auto diff HCT % 35.0 48.0 41.7 FINAL [facility] [place], [address] [place] [address] [address] [place] [id number] 0 Phone: () - 06/19 CBC w/ auto diff MCV fL 80.0 104.0 89.3 FINAL [facility] [place], [address] [place] [address] [address] [place] [id number] 0 Phone: () - 06/19 CBC w/ auto diff MCH pg 26.0 35.0 30.4 FINAL [facility], [address] [place] [id number] 0 Phone: () - 06/19 CBC w/ auto diff MCHC g/dL 30.0 35.0 34.1 FINAL [facility], [address] [place] [id number] 0 Phone: () - 06/19 CBC w/ auto diff MPV fL 9.5 13.4 8.8 Low FINAL [facility], [address] [place] [id number] 0 Phone: () - 06/19 CBC w/ auto diff RDW % 11.4 16.1 13.10 FINAL [facility], [address] [place] [id number] 0 Phone: () - 06/19 LDH panel LDH U/L 120.0 246.0 246 FINAL [facility], [address] [place] [id number] [phone] Phone: () - 06/19 CMP Album in g/dL 3.2 5.2 4.6 FINAL Asim [facility], [address] [facility] [id number] Phone: () - 06/19 CMP Alkal ine phosp hatas e U/L 46.0 116.0 91 FINAL Asim [facility], [address] [facility] [phone] 0 Phone: () - 06/19 CMP ALT/S GPT U/L 7.0 40.0 27 FINAL Asimmatt [facility], [address] [facility] [phone] 0 Phone: () - 06/19 CMP AST/S GOT U/L 13.0 40.0 34 FINAL Asim Clemens a [facility], [address] [facility] [phone] Phone: () - 06/19 CMP BUN mg/dL 9.0 23.0 11 [facility], [address] [facility] 100 [facility] [phone] 0 Phone: () - 06/19 CMP Calci um mg/dL 8.7 10.4 9.4 [facility], [address] [facility] [id number] 0 Phone: () - 06/19 CMP Chlor ray mmol/L 96.0 114.0 107 [facility] [address] [facility] [phone] 0 Phone: () - 06/19 CMP CO2 [...] end of the 96 hour stability window. [facility], [facility] N [facility] 100 [facility] [phone] 0 Phone: () - 06/19 CMP Creat inine mg/dL 0.5 1.2 0.68 [facility], [address] [facility] [phone] 0 Phone: () - 06/19 CMP GFR estim ate ml/min /1.73m ^2 103.9 GFR is calculate d using the CKD-EPI equation. [facility], [address] [facility] 100 [facility] [phone] 0 Phone: () - 06/19 CMP Gluco se mg/dL 73.0 126.0 95 [facility] [address] [facility] [id number] 0 Phone: () - 06/19 CMP Potas sium mmol/L 3.5 5.1 4.1 [facility] [address] [facility] [phone] 0 Phone: () - 06/19 CMP Sodiu m mmol/L 136.0 145.0 140 FINAL Asim [facility] [place], [address] [facility] [phone] 0 Phone: () - 06/19 CMP Bilir ubin, total mg/dL 0.3 1.2 0.2 Low FINAL Asim [facility]elius [facility] [place], [address] [facility] [phone] 0 Phone: () - 06/19 CMP Total prote in g/dL 5.7 8.2 6.9 FINAL Asim [facility], [address] [facility] [phone] 0 Phone: () - 06/19 Path perip heral blood slide revie w panel Patho logy/ Cytol ogy Morph ology SEE RESULTS BELOW CASE REPORTSpe cial Hematolog y Report Case: [id number] ing Provider: Asim Cornelius MD Collected :06/19/20 21 1340Order ing Location: [facility] Received: 1 1734Patho [...] 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 Staging bone marrow biopsy was negative forlympho ma ([id number]) . Her most recent periphera l blood morpholog y 2019 ([id number] ,05/01/2020 ) was negative for circulati ng blasts and was within normal limits.CB C AND DIFFERENT IALHEMATO LOGY PARAMETER STested at: [place] [facility] [place] ISRESULTS EXPECTED VALUESWBC : 8.7 4.5-11x10 00/cummRB [...] blood smear.ADD ITIONAL INFORMATI ONInterpr eted at [facility] - [address], [place], [place] [address]Bqqw Performed by:[facility] - [place], [place] [address]Vztu e : FINAL Asim [place]elius [place] [facility] [place] [place] See precision optics technician d 05[place]01 [facility] [place] See precision optics technician d 05/06 LDH panel LDH U/L 120.0 246.0 191 FINAL Deepthi [facility] [place], [address] [place] [phone] 0 Phone: () - 05/06 CMP Album in g/dL 3.2 5.2 4.7 FINAL [facility], [facility] N [address] [phone] 0 Phone: () - 05/06 CMP Alkal ine phosp hatas e U/L 46.0 116.0 73 FINAL Deepthi Dodge [place] [address] [phone] 0 Phone: () - 05/06 CMP ALT/S GPT U/L 7.0 40.0 19 FINAL Deepthi Dodge [place] [address] [phone] 0 Phone: () - 05/06 CMP AST/S GOT U/L 13.0 40.0 21 FINAL Deepthi Dodge [place] [address] [phone] 0 Phone: () - 05/06 CMP BUN mg/dL 9.0 23.0 16.0 FINAL Deepthi Dodge [place] [address] [phone] 0 Phone: () - 05/06 CMP Calci um mg/dL 8.7 10.4 9.8 FINAL Deepthi Dodge [place] [address] [phone] 0 Phone: () - 05/06 CMP Chlor ary mmol/L 96.0 114.0 107 FINAL Deepthi Dodge [facility], [facility] N [facility] [address] [phone] 0 Phone: () - 05/06 CMP CO2 [...] 96 hour stability window. FINAL Deepthi banerjee [place] [address] [phone] 0 Phone: () - 05/06 CMP Creat inine mg/dL 0.5 1.2 0.80 FINAL Deepthi banerjee [place] [address] [phone] 0 Phone: () - 05/06 CMP GFR estim ate ml/min /1.73m ^2 90.1 GFR is calculate d using the CKD-EPI equation. FINAL Deepthi [address] [phone] 0 Phone: () - 05/06 CMP Gluco se mg/dL 73.0 126.0 128 High FINAL [place] [address] [phone] 0 Phone: () - 05/06 CMP Potas sium mmol/L 3.5 5.1 3.9 FINAL Deepthi [place]ens [place] [address] [phone] 0 Phone: () - 05/06 CMP Sodiu m mmol/L 136.0 145.0 142 FINAL Deepthi Clemens [place] [address] [phone] 0 Phone: () - 05/06 CMP Bilir ubin, total mg/dL 0.3 1.2 0.2 Low FINAL [place] [address] [phone] 0 Phone: () - 05/06 CMP Total prote in g/dL 5.7 8.2 7.1 FINAL [place]thi [place] [address] [phone] 0 Phone: () - 05/06 Retic ulocy te count panel Retic ulocy te, absol [place] M/uL 0.02 0.08 0.07 FINAL Deepthi Dodge [facility]onne [facility] lis, [address] [place] [id number] 0 Phone: () - 05/06 Retic ulocy te count panel Retic ulocy te count % 0.4 1.6 1.60 FINAL [facility], [address] [place] [id number] 0 Phone: () - 05/06 Retic ulocy te count panel Immat ure retic ulocy te fract ion, % % 0.0 16.5 9.70 FINAL Deepthi Clemens [facility], [address] [place] [phone] 0 Phone: () - 05/06 Retic ulocy te count panel Retic ulocy te cellu lar hemog lobin pg 28.0 37.0 33.0 FINAL Deepthi Clemens [facility], [facility] [address] [place] [id number] 0 Phone: () - 05/06 CBC w/ auto diff WBC K/uL 3.0 8.9 8.4 FINAL Deepthi Clemens [facility], [address] [place] [id number] 0 Phone: () - 05/06 CBC w/ auto diff HGB g/dL 11.3 15.2 13.6 FINAL Deepthi Clemens [facility], [address] [place] [id number] 0 Phone: () - 05/06 CBC w/ auto diff PLT K/uL 113.0 364.0 266 FINAL Deepthi Clemens [facility], [address] [place] [id number] 0 Phone: () - 05/06 CBC w/ auto diff Dawna # (ANC) K/uL 1.6 6.6 3.9 FINAL Deepthi Clemens [facility], [address] [place] [id number] 0 Phone: () - 05/06 CBC w/ auto diff Dawna % % 43.0 74.0 46.7 FINAL Deepthi banerjee [facility] [place], [address] [place] [address] [address] [place] [id number] 0 Phone: () - 05/06 CBC w/ auto diff IG % % 0.0 0.5 0.5 FINAL Deepthi banerjee [facility] [place], [address] [place] [address] [address] [place] [id number] 0 Phone: () - 05/06 CBC w/ auto diff IG # K/uL 0.0 0.03 0.04 High FINAL Deepthi banerjee [facility] [place], [address] [place] [address] [address] [place] [id number] 0 Phone: () - 05/06 CBC w/ auto diff LY % % 14.0 41.0 44.8 High FINAL Deepthi banerjee [facility] [place], [address] [place] [address] [address] [place] [phone] 0 Phone: () - 05/06 CBC w/ auto diff MO % % 6.0 15.0 6.2 FINAL Deepthi banerjee [facility] [place], [address] [place] [address] [address] [place] [id number] 0 Phone: () - 05/06 CBC w/ auto diff EO % % 0.0 7.0 1.4 FINAL Deepthi banerjee [facility] [place], [address] [place] [address] [address] [place] [id number] 0 Phone: () - 05/06 CBC w/ auto diff BA % % 0.0 2.0 0.4 FINAL Deepthi banerjee [facility] [place], [address] [place] [address] [address] [place] [id number] 0 Phone: () - 05/06 CBC w/ auto diff LY # K/uL 0.4 3.6 3.8 High FINAL Deepthi banerjee [facility] [place], [address] [place] [address] [address] [place] [id number] 0 Phone: () - 05/06 CBC w/ auto diff MO # K/uL 0.2 1.3 0.5 FINAL Deepthi banerjee [facility] [place], [address] [place] [id number] 0 Phone: () - 05/06 CBC w/ auto diff EO # K/uL 0.0 0.6 0.1 FINAL Deepthi banerjee [facility] [place] [facility], [address] [place] [id number] 0 Phone: () - 05/06 CBC w/ auto diff BA # K/uL 0.0 0.2 0.0 FINAL Deepthi banerjee [facility] [place] [facility], [address] [place] [id number] 0 Phone: () - 05/06 CBC w/ auto diff NRBC % #/100W BC 0.0 0.2 0.0 FINAL Deepthi [facility]erjee [facility], [address] [place] [address] 200 [place] [id number] 0 Phone: () - 05/06 CBC w/ auto diff RBC M/uL 3.9 5.1 4.57 FINAL Deepthi [facility]erjee [facility], [address] 200 [place] [id number] 0 Phone: () - 05/06 CBC w/ auto diff HCT % 35.0 48.0 40.7 FINAL Deepthi banerjee [facility] [place] [facility], [address] [place] [address] 200 [place] [id number] 0 Phone: () - 05/06 CBC w/ auto diff MCV fL 80.0 104.0 89.1 FINAL Deepthi [facility]erjee [facility], [address] 200 [place] [id number] 0 Phone: () - 05/06 CBC w/ auto diff MCH pg 26.0 35.0 29.8 FINAL Deepthi [facility]erjee [facility], [address] [place] [address] 200 [place] [id number] 0 Phone: () - 05/06 CBC w/ auto diff MCHC g/dL 30.0 35.0 33.4 FINAL Deepthi Clemens [facility], [address] [place] [id number] 0 Phone: () - 05/06 CBC w/ auto diff MPV fL 9.5 13.4 9.3 Low FINAL Deepthi banerjee On[facility], [address] [place] [address] 200 [facility] [phone] 0 Phone: () - 05/06 CBC w/ auto diff RDW % 11.4 16.1 13.60 FINAL Deepthi banerjee [facility] - [facility], [address] [place] [address] 200 [facility] [phone] 0 Phone: () - Medications Date Name [...] (disorder) Active Vital Signs Date Type Value 12/14/2019 BSA 1.66 12/14/2019 BMI 26.30 12/14/2019 Oxygen Saturation 94.00 12/14/2019 Body Temperature 98.60 12/14/2019 Heart Beat 107.00 12/14/2019 Respiratory Rate 16.00 12/14/2019 Intravascular Systolic 128 12/14/2019 Intravascular Diastolic 80 12/14/2019 Pain Scale 4.00 12/14/2019 Weight 143.80 12/14/2019 Height 62.00 12/28/2019 Body Temperature 98.00 12/28/2019 BMI 26.89 12/28/2019 Height 62.00 12/28/2019 Weight 147.00 12/28/2019 BSA 1.68 12/28/2019 Intravascular Systolic 122 12/28/2019 Intravascular Diastolic 76 12/28/2019 Oxygen Saturation 93.00 12/28/2019 Respiratory Rate 20.00 12/28/2019 Heart Beat 87.00 12/28/2019 Pain Scale 6.00 05/01/2020 Pain Scale 8.00 05/01/2020 Body Temperature 98.20 06/19/2021 Body Temperature 98.20 06/19/2021 BSA 1.82 06/19/2021 BMI 32.56 06/19/2021 Height 62.00 06/19/2021 Heart Beat 96.00 06/19/2021 Pain Scale 0.00 06/19/2021 Intravascular Systolic 168 06/19/2021 Intravascular Diastolic 102 06/19/2021 Oxygen Saturation 98.00 06/19/2021 Respiratory Rate 16.00 06/19/2021 Weight 178.00 05/06/2023 BMI 31.51 05/06/2023 Body Temperature 98.50 05/06/2023 Heart Beat 87.00 05/06/2023 Respiratory Rate 16.00 05/06/2023 Oxygen Saturation 98.00 05/06/2023 Intravascular Systolic 148 05/06/2023 Intravascular Diastolic 88 05/06/2023 Pain Scale 6.00 05/06/2023 BSA 1.79 05/06/2023 Height 62.00 05/06/2023 Weight 172.30
[2025-09-08 13:38] VITALS: BP 161/111; PULSE 86; RESP 20; TEMP 36.7
== END 2025-09-08 13:35 | disposition home or self-care (01) ==
LOC: ED 13:07
PROVIDERS: Emergency Provider Family Medicine
DX: K04.7 Periapical abscess without sinus (principal)
CPT/HCPCS: 96372; 99283; 99284; J1885